=== PATIENT | female | born 1990 | race Caucasian/White ===

== ENCOUNTER 2023-01-27 13:55 | Outpatient (OUT) | payer OTHER, SELFPAY ==
[2023-01-27 14:22] LABS: Basophils Percent Auto 0.3 % (0.2-2.0); Eosinophils Absolute Auto 0.1 10^3/uL (0.0-0.7); Eosinophils Percent Auto 0.9 % (0.9-7.0); Hematocrit 33.1 % (36.0-48.0); Hemoglobin 10.7 g/dL (12.0-16.0); Immature Granulocytes Pct Auto 1.8 % (0.0-0.5); Lymphocytes Absolute Auto 2.5 10^3/uL (1.2-3.8); Lymphocytes Percent Auto 22.3 % (20.5-60.0); Mean Corpuscular HGB Conc 32.3 g/dL (29.9-35.2); Mean Corpuscular Volume 80.3 fL (81.0-99.0); Mean Platelet Volume 12.1 fL (9.5-13.5); Monocytes Absolute Auto 0.7 10^3/uL (0.3-0.8); Monocytes Percent Auto 5.9 % (1.7-12.0); Neutrophils Absolute Auto 7.7 10^3/uL (1.4-6.5); Neutrophils Percent Auto 68.8 % (43.0-75.0); Platelet Count 182 10^3/uL (150-450); Red Blood Count 4.12 10^6/uL (4.20-5.40); Red Cell Distribution Width 15.9 % (11.0-15.0); White Blood Count 11.2 10^3/uL (4.0-11.0)
== END 2023-01-27 13:56 | disposition home or self-care (01) ==
LOC: LAB 13:59
PROVIDERS: PCP Obstetrics & Gynecology; Visit Provider Obstetrics & Gynecology
DX: D50.8 Other iron deficiency anemias (principal)
CPT/HCPCS: 36415; 85025

== ENCOUNTER 2023-01-31 13:57 | Outpatient (OUT) | payer OTHER, SELFPAY ==
[2023-01-31 14:11] VITALS: BP 143/62; PULSE 93
--- NOTE | 2023-01-31 14:23 | US_ITS ---
[address] [address] Patient Name: SHIN ANTONIO MRN: [id number] date: 1990 Sex: F Assigned Patient Location: [facility] Current Patient Location: Accession/Order Number: [id number] Exam Date: 01/31/2023 14:25 Report Date: 01/31/2023 18:28 At the request of: RONNELL LEGGETT Procedure: US OB BPP w non-stress EXAMINATION: US OB BPP w non-stress HISTORY: Other iron deficiency anemia D50.8 COMPARISON: No relevant comparison available. TECHNIQUE: Ultrasound biophysical profile was performed in the radiology department. FINDINGS: BREATHING MOVEMENTS: 2.0 GROSS BODY MOVEMENTS: 2.0 TONE: 2.0 QUALITATIVE AMNIOTIC FLUID VOLUME: 2.0 PRESENTATION: CEPHALIC HEART RATE: 151.7 bpm H.B./min AMNIOTIC FLUID VOLUME: 13.0 cm cm GESTATIONAL AGE: 32 weeks 3 days CONCLUSION: Total biophysical profile score: 8.0 Electronically authenticated by: JR RITCHIE Date: 01/31/2023 18:28
== END 2023-01-31 14:55 | disposition home or self-care (01) ==
LOC: US 13:58 → FBC 13:59
PROVIDERS: Visit Provider Midwife
DX: O34.219 Maternal care for unspecified type scar from previous cesarean delivery (principal); O09.293 Supervision of pregnancy with other poor reproductive or obstetric history, third trimester; D50.8 Other iron deficiency anemias
CPT/HCPCS: 76818

== ENCOUNTER 2023-02-03 10:59 | Outpatient (OUT) | payer OTHER, SELFPAY ==
[2023-02-03 11:11] VITALS: BP 137/70; PULSE 87
== END 2023-02-03 11:43 | disposition home or self-care (01) ==
LOC: FBCO 10:59 → FBC 11:10
PROVIDERS: Visit Provider Obstetrics & Gynecology
DX: O09.293 Supervision of pregnancy with other poor reproductive or obstetric history, third trimester (principal); O34.219 Maternal care for unspecified type scar from previous cesarean delivery; D50.8 Other iron deficiency anemias
CPT/HCPCS: 59025

== ENCOUNTER 2023-02-07 16:58 | Outpatient (OUT) | payer OTHER, SELFPAY ==
--- NOTE | 2023-02-07 17:05 | US_ITS ---
[address] [address] Patient Name: SHIN ANTONIO MRN: [id number] date: 1990 Sex: F Assigned Patient Location: [facility] Current Patient Location: Accession/Order Number: [id number] Exam Date: 02/07/2023 17:10 Report Date: 02/08/2023 04:10 At the request of: RONNELL LEGGETT Procedure: US OB BPP w non-stress EXAMINATION: US OB BPP w non-stress HISTORY: H/O MACROSOMIA IN PRIOR O09.293 COMPARISON: Ultrasound biophysical 01/31/2023 TECHNIQUE: Ultrasound biophysical profile was performed in the radiology department. BREATHING MOVEMENTS: 2.0 GROSS BODY MOVEMENTS: 2.0 TONE: 2.0 QUALITATIVE AMNIOTIC FLUID VOLUME: 2.0 PRESENTATION: CEPHALIC HEART RATE: 156.1 bpm bpm. AMNIOTIC FLUID VOLUME: 11.7 cm GESTATIONAL AGE: 33 weeks 3 days CONCLUSION: Total biophysical profile score 8.0. Electronically authenticated by: LINO ARROYO Date: 02/08/2023 04:10
[2023-02-07 18:35] VITALS: BP 130/72; PULSE 87
== END 2023-02-07 18:40 | disposition home or self-care (01) ==
LOC: US 16:59 → FBC 17:02
PROVIDERS: Visit Provider Midwife
DX: O09.293 Supervision of pregnancy with other poor reproductive or obstetric history, third trimester (principal); O34.219 Maternal care for unspecified type scar from previous cesarean delivery; O99.013 Anemia complicating pregnancy, third trimester; D50.8 Other iron deficiency anemias; Z3A.00 Weeks of gestation of pregnancy not specified
CPT/HCPCS: 76818

== ENCOUNTER 2023-02-09 20:08 | Outpatient (REF) | payer OTHER, SELFPAY | END 2023-02-09 20:09 | disposition home or self-care (01) | LOC: LAB 20:08 | PROVIDERS: Visit Provider Obstetrics & Gynecology | DX: Z34.93 Encounter for supervision of normal pregnancy, unspecified, third trimester (principal) | CPT/HCPCS: 87081 ==

== ENCOUNTER 2023-02-10 10:55 | Outpatient (OUT) | payer OTHER, SELFPAY | END 2023-02-10 11:59 | disposition home or self-care (01) | LOC: FBCO 10:59 → FBC 11:04 | PROVIDERS: Visit Provider Obstetrics & Gynecology | DX: O09.293 Supervision of pregnancy with other poor reproductive or obstetric history, third trimester (principal); O34.219 Maternal care for unspecified type scar from previous cesarean delivery; D50.8 Other iron deficiency anemias | CPT/HCPCS: 59025 ==

== ENCOUNTER 2023-02-14 17:09 | Outpatient (OUT) | payer OTHER, SELFPAY ==
--- NOTE | 2023-02-14 17:14 | US_ITS ---
[address] [address] Patient Name: SHIN ANTONIO MRN: [id number] date: 1990 Sex: F Assigned Patient Location: [facility] Current Patient Location: Accession/Order Number: [id number] Exam Date: 02/14/2023 17:25 Report Date: 02/15/2023 15:04 At the request of: RONNELL LEGGETT Procedure: US OB BPP w non-stress EXAMINATION: US OB BPP w non-stress HISTORY: H/O MACROSOMIA O09.293 COMPARISON: Ultrasound OB biophysical 02/07/2023 TECHNIQUE: Ultrasound biophysical profile was performed in the radiology department. BREATHING MOVEMENTS: 2.0 GROSS BODY MOVEMENTS: 2.0 TONE: 2.0 QUALITATIVE AMNIOTIC FLUID VOLUME: 2.0 PRESENTATION: CEPHALIC HEART RATE: 149.2 bpm bpm. AMNIOTIC FLUID VOLUME: 11.1 cm GESTATIONAL AGE: 34 weeks 3 days CONCLUSION: Total biophysical profile score 8.0. Electronically authenticated by: LINO ARROYO Date: 02/15/2023 15:04
[2023-02-14 18:08] VITALS: BP 128/66; PULSE 88
== END 2023-02-14 18:45 | disposition home or self-care (01) ==
LOC: US 17:12 → FBC 17:13
PROVIDERS: Visit Provider Midwife
DX: Z34.93 Encounter for supervision of normal pregnancy, unspecified, third trimester (principal); O34.219 Maternal care for unspecified type scar from previous cesarean delivery; D50.8 Other iron deficiency anemias; Z3A.34 34 weeks gestation of pregnancy
CPT/HCPCS: 59025; 76818

== ENCOUNTER 2023-02-15 00:29 | Observation (INO) | payer OTHER, SELFPAY ==
[2023-02-15 00:45] VITALS: BP 149/70; PULSE 89
[2023-02-15 00:51] LABS: Bilirubin Urine NEGATIVE (NEGATIVE); Blood Urine TRACE-I (NEGATIVE); Clarity Urine CLEAR (CLEAR); Color Urine YELLOW (YELLOW); Glucose Urine UA NEGATIVE (NEGATIVE); Ketones Urine NEGATIVE (NEGATIVE); Leukocyte Esterase Urine NEGATIVE (NEGATIVE); Nitrite Urine NEGATIVE (NEGATIVE); Protein Urine NEGATIVE (NEG/TRACE); Specific Gravity Urine 1.025 (1.005-1.025)
[2023-02-15 00:55] VITALS: BP 145/81; PULSE 87
[2023-02-15 00:55] LABS: Urine Microscopic Indicated YES
[2023-02-15 00:58] LABS: Bacteria Urine LARGE #/HPF (NONE SEEN); Cast Seen? NONE SEEN #/LPF (NONE SEEN); Crystals Seen? None Seen #/HPF (None Seen); Mucus Urine NONE SEEN (NONE SEEN); Squamous Epithelial Cell Urine MODERATE #/LPF (NONE/RARE); Urine Culture Indicated YES
== END 2023-02-15 02:30 | disposition home or self-care (01) ==
LOC: FBC 00:30
PROVIDERS: Admitting Provider Obstetrics & Gynecology; Visit Provider Obstetrics & Gynecology
DX: O26.893 Other specified pregnancy related conditions, third trimester (principal); R10.9 Unspecified abdominal pain; Z3A.34 34 weeks gestation of pregnancy; O23.593 Infection of other part of genital tract in pregnancy, third trimester; O13.3 Gestational [pregnancy-induced] hypertension without significant proteinuria, third trimester
CPT/HCPCS: 59025; 81001; 81003; 87086; G0378; G0379

== ENCOUNTER 2023-02-16 07:36 | Outpatient (OUT) | payer OTHER, SELFPAY ==
[2023-02-16 10:50] VITALS: BP 128/68; PULSE 91; RESP 20; TEMP 36.3; O2SAT 97
--- NOTE | 2023-02-16 10:50 | PC.NURSE ---
Pt. to [facility] amb. for Celestone injection. Denies questions regarding medication. VSS.
--- NOTE | 2023-02-16 11:05 | PC.NURSE ---
1103: Medicated with Celestone 12mg IM to right deltoid. No bleeding to site. Bandaid placed prophylactically. Instructed need to remain in [facility] for brief observation. Relays understanding.
--- NOTE | 2023-02-16 11:21 | PC.NURSE ---
Pt. without s&s of adverse reaction. No bleeding at injection site. D/c'd amb. to home.
== END 2023-02-16 07:37 | disposition home or self-care (01) ==
LOC: INF 07:36
PROVIDERS: Visit Provider Obstetrics & Gynecology
DX: O35.8XX0 Maternal care for other (suspected) fetal abnormality and damage, not applicable or unspecified (principal); Z3A.34 34 weeks gestation of pregnancy
CPT/HCPCS: 96372; J0702

== ENCOUNTER 2023-02-16 22:25 | Outpatient (OUT) | payer OTHER, SELFPAY ==
[2023-02-16 22:37] VITALS: BP 150/77; PULSE 83
[2023-02-16 22:57] LABS: Bilirubin Urine NEGATIVE (NEGATIVE); Blood Urine TRACE-I (NEGATIVE); Clarity Urine CLEAR (CLEAR); Color Urine LT. YELLOW (YELLOW); Glucose Urine UA 500 mg/dL (NEGATIVE); Ketones Urine 15 mg/dL (NEGATIVE); Leukocyte Esterase Urine NEGATIVE (NEGATIVE); Nitrite Urine NEGATIVE (NEGATIVE); Protein Urine NEGATIVE (NEG/TRACE); Specific Gravity Urine >=1.030 (1.005-1.025); Urobilinogen Urine 0.2 EU/dL (0.2-1.0)
[2023-02-16 23:09] LABS: Urine Microscopic Indicated YES
[2023-02-16 23:10] LABS: Bacteria Urine TRACE #/HPF (NONE SEEN); Cast Seen? NONE SEEN #/LPF (NONE SEEN); Crystals Seen? None Seen #/HPF (None Seen); Mucus Urine NONE SEEN (NONE SEEN); RBC Urine 0-2 #/HPF (0-2); Squamous Epithelial Cell Urine FEW #/LPF (NONE/RARE); Urine Culture Indicated NO; WBC Urine 0-2 #/HPF (NONE SEEN)
== END 2023-02-16 23:40 | disposition home or self-care (01) ==
LOC: FBCO 22:27 → FBC 22:29
PROVIDERS: Midwife; Visit Provider Obstetrics & Gynecology
DX: O09.293 Supervision of pregnancy with other poor reproductive or obstetric history, third trimester (principal); O34.219 Maternal care for unspecified type scar from previous cesarean delivery; O99.013 Anemia complicating pregnancy, third trimester; D50.8 Other iron deficiency anemias; Z3A.00 Weeks of gestation of pregnancy not specified
CPT/HCPCS: 59025; 81001; 81003; 96372; J0702

== ENCOUNTER 2023-02-17 14:00 | Observation (INO) | payer OTHER, SELFPAY ==
[2023-02-17 11:01] VITALS: BP 148/70; PULSE 90; RESP 18
--- NOTE | 2023-02-17 12:11 | US_ITS ---
[address] [address] Patient Name: SHIN ANTONIO MRN: [id number] date: 1990 Sex: F Assigned Patient Location: [facility] Current Patient Location: [facility] Accession/Order Number: [id number] Exam Date: 02/17/2023 12:15 Report Date: 02/17/2023 14:23 At the request of: ANAYELI JOHANSEN Procedure: US OB BPP w non-stress PROCEDURE: US OB BPP w non-stress, 02/17/2023 12:15 PM EDT CLINICAL INDICATIONS: Decreased movement, encounter for third trimester , biophysical profile assessment. Expected gestational age: 34 weeks 6 days. Expected EZEKIEL: 03/25/2023. COMPARISON: 02/14/2023, pelvic sonogram 10/05/2022. TECHNIQUE: Limited third trimester obstetric sonogram, howard scale, color assessment, biophysical profile evaluation. FINDINGS: Single living intrauterine , cephalic presentation noted. body, cardiac activity seen, heart rate 144 bpm. Amniotic fluid index 12.1 cm, maximum vertical pocket 3.5 cm. 5-95th percentile. BIOPHYSICAL PROFILE ASSESSMENT: movement: 0/2 tone: 2/2 breathin/2 fluid: 2/2 Total biophysical profile score: 6/8 Anterior placenta, no previa. There is coarse calcification along the ventral aspect of the uterus with acoustic shadowing measuring up to 3.3 x 2.0 x 3.5 cm. This likely corresponds with a 2.2 cm calcified degenerated subserosal uterine fibroid seen on sonogram of 10/07/2021. US/US OB BPP w non-stress IMPRESSION: 1. Single living intrauterine , cephalic presentation. 2. Total biophysical profile score of 6/8. The fetus received a score of 0/2 for movement parameter. Fetus received scores of 2/2 for breathing, tone and fluid parameters. 3. Anterior placenta, no previa. 4. Normal amniotic fluid index, 12.1 cm, maximal vertical pocket 3.5 cm. 5. 3.5 cm calcified degenerated subserosal ventral maternal uterine fibroid, previously 2.2 cm on 10/07/2021. RESULTS PLACED IN THE STAT CALL FOLDER AT THE TIME OF THIS DICTATION. Electronically authenticated by: JUNE AC Date: 02/17/2023 14:23
[2023-02-17 13:13] VITALS: BP 148/70; PULSE 93
--- NOTE | 2023-02-17 14:13 | PC.NURSE ---
Pt observation to continue in room 251. Settles into room, call light in reach, water and declines food at this time. Discusses plan of care with FHT's Q 1 hour while awake with 20 min strip every 4 hours. Pt verbalizes understanding. Pt settles self and states will try to rest. FHT 140-150, accel to 162 noted with audible movement. Pt denies feeling movement. Is aware of anterior placenta masking movement. States feels better hearing FHT's.
[2023-02-17 20:07] VITALS: BP 111/56; PULSE 90
[2023-02-17 20:10] VITALS: BP 111/56; PULSE 90; RESP 16; TEMP 36.7
--- NOTE | 2023-02-17 20:15 | PC.NURSE ---
Assessment is complete. Lungs are clear. No edema is noted. Pt denies any nausea, blurred/spotty vision or dizziness. No bleeding or leaking of fluid. Pt reports feeling the baby move alot more now. FHR tracing is reactive. Pt denies any pain.
[2023-02-17 23:56] VITALS: BP 148/67; PULSE 90; RESP 18; TEMP 36.8
[2023-02-18 04:49] VITALS: BP 112/59; PULSE 83; RESP 18; TEMP 37
--- NOTE | 2023-02-18 08:00 | US_ITS ---
[address] [address] Patient Name: SHIN ANTONIO MRN: [id number] date: 1990 Sex: F Assigned Patient Location: [facility] Current Patient Location: Accession/Order Number: [id number] Exam Date: 02/18/2023 08:28 Report Date: 02/18/2023 11:06 At the request of: ANAYELI JOHANSEN Procedure: US OB BPP w non-stress EXAMINATION: US OB BPP w non-stress HISTORY: Decreased movement COMPARISON: Ultrasound OB biophysical 02/17/2023 TECHNIQUE: Ultrasound biophysical profile was performed in the radiology department. BREATHING MOVEMENTS: 2.0 GROSS BODY MOVEMENTS: 2.0 TONE: 2.0 QUALITATIVE AMNIOTIC FLUID VOLUME: 2.0 PRESENTATION: CEPHALIC HEART RATE: 139.9 bpm bpm. AMNIOTIC FLUID VOLUME: 13.9 cm GESTATIONAL AGE: 35 weeks 0 days CONCLUSION: Total biophysical profile score 8.0. Electronically authenticated by: LINO ARROYO Date: 02/18/2023 11:06
[2023-02-18 08:18] VITALS: BP 117/64; PULSE 85
[2023-02-18 09:12] VITALS: RESP 18; TEMP 36.9
== END 2023-02-18 09:43 | disposition home or self-care (01) ==
LOC: FBCO 15:04 → FBC 15:04
PROVIDERS: Admitting Provider Obstetrics & Gynecology; Visit Provider Obstetrics & Gynecology
DX: O36.8130 Decreased fetal movements, third trimester, not applicable or unspecified (principal); O09.293 Supervision of pregnancy with other poor reproductive or obstetric history, third trimester; O34.219 Maternal care for unspecified type scar from previous cesarean delivery; O99.013 Anemia complicating pregnancy, third trimester; D50.8 Other iron deficiency anemias; Z3A.34 34 weeks gestation of pregnancy
CPT/HCPCS: 76818; 96372; G0378; G0379; J0702

== ENCOUNTER 2023-02-20 11:50 | Outpatient (OUT) | payer OTHER, SELFPAY ==
[2023-02-20 12:32] VITALS: BP 135/63; PULSE 83
== END 2023-02-20 12:55 | disposition home or self-care (01) ==
LOC: FBCO 11:57 → FBC 11:57
PROVIDERS: Visit Provider Obstetrics & Gynecology
DX: Z34.93 Encounter for supervision of normal pregnancy, unspecified, third trimester (principal); O09.293 Supervision of pregnancy with other poor reproductive or obstetric history, third trimester; O34.219 Maternal care for unspecified type scar from previous cesarean delivery; R51.9 Headache, unspecified
CPT/HCPCS: 59025

== ENCOUNTER 2023-02-21 18:35 | Inpatient (IN) | payer OTHER, SELFPAY ==
[2023-02-21] VITALS (44 sets, daily range): BP systolic 116–182; BP diastolic 55–77; PULSE 75–106; RESP 13–29; TEMP 36.7–37.2; O2SAT 96–97
--- NOTE | 2023-02-21 17:14 | US_ITS ---
[address] [address] Patient Name: SHIN ANTONIO MRN: [id number] date: 1990 Sex: F Assigned Patient Location: [facility] Current Patient Location: [facility] Accession/Order Number: [id number] Exam Date: 02/21/2023 17:18 Report Date: 02/21/2023 22:09 At the request of: MARV PARRA Procedure: US OB BPP w non-stress EXAMINATION: US OB BPP w non-stress HISTORY: H/O MACROSOMIA PRIOR O09.293 COMPARISON: Ultrasound biophysical 02/18/2023 TECHNIQUE: Ultrasound biophysical profile was performed in the radiology department. BREATHING MOVEMENTS: 2.0 GROSS BODY MOVEMENTS: 2.0 TONE: 2.0 QUALITATIVE AMNIOTIC FLUID VOLUME: 2.0 PRESENTATION: CEPHALIC HEART RATE: 150.0 bpm bpm. AMNIOTIC FLUID VOLUME: 10.5 cm GESTATIONAL AGE: 35 weeks 3 days CONCLUSION: Total biophysical profile score 8.0. Electronically authenticated by: LINO ARROYO Date: 02/21/2023 22:09
[2023-02-21] MEDS: 0.9 % SODIUM CHLORIDE 1,000 ML 1000 ML IV (18:45)
[2023-02-21] MEDS: TERBUTALINE SULFATE 1 MG/ML VIAL 0.25 MG SUBQ ×2 (18:55→19:15)
[2023-02-21 19:51] LABS: Basophils Percent Auto 0.3 % (0.2-2.0); Eosinophils Absolute Auto 0.1 10^3/uL (0.0-0.7); Eosinophils Percent Auto 0.5 % (0.9-7.0); Hematocrit 35.5 % (36.0-48.0); Hemoglobin 10.9 g/dL (12.0-16.0); Immature Granulocytes Abs Auto 0.25 10^3/uL (0.00-0.03); Immature Granulocytes Pct Auto 1.9 % (0.0-0.5); Lymphocytes Absolute Auto 2.9 10^3/uL (1.2-3.8); Mean Corpuscular HGB Conc 30.7 g/dL (29.9-35.2); Mean Corpuscular Volume 81.4 fL (81.0-99.0); Mean Platelet Volume 11.7 fL (9.5-13.5); Monocytes Absolute Auto 0.8 10^3/uL (0.3-0.8); Monocytes Percent Auto 6.3 % (1.7-12.0); Neutrophils Absolute Auto 8.9 10^3/uL (1.4-6.5); Platelet Count 175 10^3/uL (150-450); Red Blood Count 4.36 10^6/uL (4.20-5.40); Red Cell Distribution Width 16.3 % (11.0-15.0); White Blood Count 12.9 10^3/uL (4.0-11.0)
[2023-02-21] MEDS: 0.9 % SODIUM CHLORIDE 1,000 ML 150 ML IV (19:58)
--- NOTE | 2023-02-21 20:06 | P.OBHP_ITS ---
OB - H&P: HPI History of Present Illness Chief complaint: Z34.98, O09.293 - US BPP, NST : 8 Para: 3 Date of last menstrual period: EZEKIEL 03/25/23 Gestational age based on last menstrual period: 34.4 Narrative: HISTORY OF ABRUPTION FOLLOWED BY UTERINE RUPTURE AND DEMISE LAST . PLANNED THIS WEEK. CAME IN GURWINDER NOT RESPONSIVE TO IVG HYDRATION AND TERBUTALINE. GOING FOR REPEAT . DISCUSSED WITH DR. JOHANSEN WHO AGREES. History of Present Dating criteria: LMP confirmed by 2nd trimester US care: good care Ultrasounds: normal mid trimester US complications: induced hypertension complications comment: PATIENT STATES WHEN ANXIOUS SHE SOMETIMES HAS SVT Medical complications OB: other (INCREASED BMI) Labs Blood type: A (+) positive Rubella: immune RPR/VDLR: nonreactive GBS status: negative HBsAG: negative Review of Systems ROS Status of ROS 10 or more systems reviewed and unremarkable except as noted in history and below Gastrointestinal Reports: other (REGULAR CONTRACTIONS, MILD) PFSH PFSH Medical History (Updated 02/21/23 @ 20:21 by Shameka Hernandez MD) Surgical History (Updated 02/21/23 @ 19:51 by Geena Brantley) Meds Home Medications and Allergies Home Medications Medication Instructions Recorded Confirmed Type labetalol 100 mg tablet 100 mg PO Q12H 02/21/23 02/21/23 History magnesium oxide 400 mg (241.3 mg mg PO DAILY 02/21/23 History magnesium) tablet polysaccharide iron complex 180 mg mg 02/21/23 History iron capsule (Pro Fe) prednisone 1 mg tablet 3.5 mg PO DAILY 02/21/23 02/21/23 History prednisone 5 mg tablet mg 02/21/23 History Allergies Allergy/AdvReac Type Severity Reaction Status Date / Time clear taape AdvReac Mild Uncoded 02/17/23 11:48 Exam Constitutional Vital Signs, click to edit/add: Last Vital Signs Pulse 95 H 02/21/23 20:02 BP 182/70 H 02/21/23 20:02 Documenting provider has reviewed patient's vital signs: yes Common normals: no apparent distress and oriented x3 (INCREASED BMI) General appearance: cooperative, comfortable, well kempt and well developed Orientation/consciousness: Yes awake, Yes oriented to person, Yes oriented to place and Yes oriented to time HENMT Common normals: normocephalic and head/scalp atraumatic Eye Common normals: PERRL Pupil: accommodation reflex normal Neck & C-Spine Common normals: full ROM Respiratory Common normals: normal respiratory effort Cardio Common normals: regular rate and regular rhythm (PATIENT STATES WHEN ANXIOUS HAS BEEN KNOWN TO HAVE SVT) GI Common normals: Normal to inspection, nondistended, normoactive bowel sounds present, soft to palpation and non-tender (GRAVID, MILD TO MODERATE PAINFUL CONTRACTIONS Q 2 MINUTES) Common normals: no CVA tenderness and external appearance normal Extremity Common normals: normal to inspection and full ROM Neuro Common normals: CN's II-XII intact bilaterally, moves all extremities and no focal motor deficits Motor exam: strength 5/5 throughout Results Labs Labs: Short CBC 02/21/23 Range/Units 19:45 WBC 12.9 H (4.0-11.0) 10^3/uL Hgb 10.9 L (12.0-16.0) g/dL Hct 35.5 L (36.0-48.0) % Plt Count 175 (150-450) 10^3/uL OB - A/P Assessment and Plan (1) delivery (maternal condition): Assessment and Plan: HISTORY OF ABRUPTION FOLLOWED BY UTERINE RUPTURE AND DEMISE. FOUND TO BE HETEROZYGOUS FOR MTHFR 677 AND 1928 MUTATION. PLACED ON PREDNISONE FOR THIS. (2) contractions: Assessment and Plan: UNABLE TO STOP WITH IVF HYDRATION AND TWO DOSES OF TERBUTALINE. (3) PIH ( induced hypertension): Assessment and Plan: ON LABETALOL Plan HAVE DISCUSSED WITH DR. JOHANSEN. WILL PROCEED TO CATEGORY B . REPEAT C- SECTION WAS PLANNED FOR THIS COMING MONDAY. THE RISK OF UTERINE RUPTURE IS TOO GREAT NOT TO PROCEED TO NOW. DISCUSSED WITH PATIENT AND HER WHO UNDERSTAND REASON FOR NOW AND ARE IN AGREEMENT. THEY KNOW THAT I HAVE SPOKEN TO DR. JOHANSEN. WILL RECEIVE VTE PROPHYLAXIS POST OP. LABS REVIEWED. GBS NEGATIVE. OB RECORD REVIEWED. TEAM HERE. MANAGER OF HEALTH NOTIFIED OF PENDING AT 38.4 WEEKS. ANTICIPATE EXTRAFACIAL CS DR. JOHANSEN INFORMED THERE ARE DENSE ADHESIONS. HAS HAD 4 PRIOR C-SECTIONS. CONSENT FORMS ARE SIGNED.
[2023-02-21 20:29] LABS: Amphetamine Screen Urine NEGATIVE (NEGATIVE); Barbiturates Screen Urine NEGATIVE (NEGATIVE); Benzodiazepines Screen Urine NEGATIVE (NEGATIVE); Buprenorphine Screen Urine NEGATIVE (NEGATIVE); Cannabinoid Screen Urine NEGATIVE (NEGATIVE); Cocaine Screen Urine NEGATIVE (NEGATIVE); Methadone Screen Urine NEGATIVE (NEGATIVE); Methamphetamines Screen Urine NEGATIVE (NEGATIVE); Opiate Screen Urine NEGATIVE (NEGATIVE); Oxycodone Screen Urine NEGATIVE (NEGATIVE); Phencyclidine Screen Urine NEGATIVE (NEGATIVE); Tricyclic Antidepressant Urine NEGATIVE (NEGATIVE)
[2023-02-21] MEDS: FAMOTIDINE/PF 20 MG/2 ML VIAL IV (20:45)
[2023-02-21] MEDS: CEFAZOLIN SODIUM/DEXTROSE,ISO 2 GM/50 ML PIGGYBACK IV (20:47)
--- NOTE | 2023-02-21 22:02 | P.OBPRC_ITS ---
Procedure Pre-op/Post-op diagnoses: Pre-Op/Post-Op Diagnoses Operation Date: 02/21/23 18:25 <No data on this case meets the specified criteria> Procedure: Procedures Operation Date: 02/21/23 18:25 Actual Procedure Side Surgeon p WITH DELIVERY OF VIABLE BABY GIRL Not Applicable Shameka Hernandez MD Cycle Consultant: Maribel Shelton Estimated blood loss (mL): 500 Disposition: other (maternity) Anesthesia type: Spinal Complications: none Narrative: CATEGORY B CS. HISTORY OF ABRUPTION WITH UTERINE RUPTURE AND DEMISE WITH LAST . CURRENTLY GURWINDER AT 35.4 WEEKS. WAS SCHEDULED FOR SURGERY THIS MONDAY WITH DR. JOHANSEN. SEE DICTATION. Infant heart rate - 5 minute: 100 bpm or Greater (see dimension mill worker's assessment note at )
[2023-02-21] MEDS: LACTATED RINGER'S SOLUTION 1,000 ML 125 ML IV (22:21)
[2023-02-21] MEDS: ONDANSETRON PF 4 MG/2 ML VIAL IV (23:17)
[2023-02-21] MEDS: DIPHENHYDRAMINE HCL 50 MG/ML (1ML) VIAL 25 MG IV (23:18)
[2023-02-22] VITALS (17 sets, daily range): BP systolic 123–166; BP diastolic 69–81; PULSE 73–79; RESP 16–22; TEMP 35.6–36.7; O2SAT 96–100
[2023-02-22] MEDS: KETOROLAC TROMETHAMINE 30 MG/ML VIAL IVP ×4 (01:06→20:37)
[2023-02-22] MEDS: CEFAZOLIN SODIUM/DEXTROSE 2 GM/50 ML PIGGYBACK IV (03:23)
[2023-02-22 06:01] LABS: Basophils Percent Auto 0.2 % (0.2-2.0); Eosinophils Absolute Auto 0.1 10^3/uL (0.0-0.7); Eosinophils Percent Auto 0.3 % (0.9-7.0); Hematocrit 29.7 % (36.0-48.0); Hemoglobin 9.2 g/dL (12.0-16.0); Immature Granulocytes Pct Auto 1.4 % (0.0-0.5); Lymphocytes Absolute Auto 2.7 10^3/uL (1.2-3.8); Lymphocytes Percent Auto 18.2 % (20.5-60.0); Mean Corpuscular Hemoglobin 25.1 pg (26.7-34.0); Mean Corpuscular Volume 80.9 fL (81.0-99.0); Mean Platelet Volume 11.6 fL (9.5-13.5); Monocytes Absolute Auto 0.9 10^3/uL (0.3-0.8); Monocytes Percent Auto 6.1 % (1.7-12.0); Neutrophils Absolute Auto 10.9 10^3/uL (1.4-6.5); Neutrophils Percent Auto 73.8 % (43.0-75.0); Platelet Count 152 10^3/uL (150-450); Red Blood Count 3.67 10^6/uL (4.20-5.40); Red Cell Distribution Width 16.1 % (11.0-15.0); White Blood Count 14.7 10^3/uL (4.0-11.0)
--- NOTE | 2023-02-22 07:18 | W.PC.ACHO ---
Registration Status: ADM IN Primary Language: Paraguayan Preferred Language: Paraguayan Active Medications Report given to Rosalee Generic Name Dose Route Start Last Admin Trade Name Freq PRN Reason Stop Dose Admin Al Hydroxide/Mg Hydroxide 2,400 mg 02/21/23 22:00 Magnesium Hydroxide 2,400 Mg/10 Ml Oral.Susp PO Q6H PRN Dyspepsia Carboprost Tromethamine 250 mcg 02/21/23 20:03 Carboprost Tromethamine 250 Mcg/Ml 1 Ml Vial IM Q15M PRN Bleeding Enoxaparin Sodium 40 mg 02/22/23 10:00 Enoxaparin Sodium 40 Mg/0.4 Ml Syringe SUBQ Q24H KATHLEEN Sodium Chloride 1,000 mls @ 150 mls/hr 02/21/23 19:45 02/21/23 19:58 Sodium Chloride 0.9% 1,000 Ml IV 150 mls/hr .Q6H40M KATHLEEN Administration Sodium Chloride 1,000 mls @ 125 mls/hr 02/21/23 20:15 02/22/23 05:05 Sodium Chloride 0.9% 1,000 Ml IV Not Given .Q8H KATHLEEN Cefazolin Sodium/Dextrose 2 gm in 50 mls @ 100 mls/hr 02/21/23 20:15 02/21/23 20:47 Ancef IV 100 mls/hr Q6H KATHLEEN 100 mls/hr Administration Clindamycin Phosphate/Dextrose 900 mg in 50 mls @ 100 mls/hr 02/21/23 20:15 02/22/23 01:57 Cleocin Phosphate/D5w 900 Mg/50 Ml Piggyback IV Not Given Q8H KATHLEEN Oxytocin 10 unit/ Sodium 501 mls @ 6.012 mls/hr 02/21/23 20:15 02/22/23 05:08 Chloride IV Not Given Q24H KATHLEEN 2 MILLIUNIT/MIN Lactated Ringer's 1,000 mls @ 125 mls/hr 02/21/23 22:00 02/21/23 22:21 Lactated Ringers IV 125 mls/hr .Q8H KATHLEEN Administration Lactated Ringer's 1,000 mls @ 50 mls/hr 02/21/23 22:30 02/22/23 05:06 Lactated Ringers IV Not Given .Q20H KATHLEEN Oxytocin 20 unit/ Sodium 1,002 mls @ 125 mls/hr 02/22/23 02:00 Chloride IV 02/22/23 09:59 Q8H KATHLEEN Protocol Ibuprofen 800 mg 02/21/23 21:54 Ibuprofen 400 Mg Tablet PO Q8H PRN Pain Ketorolac Tromethamine 30 mg 02/21/23 21:54 02/22/23 06:37 Ketorolac Tromethamine 30 Mg/Ml Vial IVP 02/23/23 21:55 30 mg Q6H PRN Administration Pain Lidocaine 5 ml 02/21/23 20:03 Lidocaine Viscous 2% 15 Ml Topical Solution TOPICAL DIRECTED PRN Pain Lidocaine 1 ml 02/21/23 20:03 Lidocaine Hcl 1% 200 Mg/20 Ml Mdv INJ DIRECTED PRN Pain Methylergonovine Maleate 0.2 mg 02/21/23 20:03 Methylergonovine Maleate 0.2 Mg/Ml Ampule IM ONCE PRN Uterine Contractility/Contract Methylergonovine Maleate 0.2 mg 02/21/23 20:03 Methylergonovine Maleate 0.2 Mg Tablet PO Q4H PRN Uterine Contractility/Contract Misoprostol 600 mcg 02/21/23 20:03 Misoprostol 100 Mcg Tablet PO ONCE PRN Uterine Bleeding Misoprostol 800 mcg 02/21/23 20:03 Misoprostol 100 Mcg Tablet SL ONCE PRN Uterine Bleeding Misoprostol 1,000 mcg 02/21/23 20:03 Misoprostol 100 Mcg Tablet NE ONCE PRN Uterine Bleeding Nalbuphine HCl 10 mg 02/21/23 20:03 Nalbuphine Hcl 10 Mg/Ml Ampule IV Q3H PRN Pain Ondansetron HCl 4 mg 02/21/23 20:03 Ondansetron 4 Mg Rapdis Tablet SL Q6H PRN Nausea And Vomiting Ondansetron HCl 4 mg 02/21/23 22:00 02/21/23 23:17 Ondansetron Pf 4 Mg/2 Ml Vial IV 4 mg Q6H PRN Administration Nausea And Vomiting Oxycodone/Acetaminophen 2 each 02/21/23 21:54 Oxycodone Hcl/Acetaminophen 5-325 Mg Tablet PO Q4H PRN Pain Oxytocin 10 unit 02/21/23 20:03 Oxytocin 100 Unit/10 Ml Vial IM ONCE PRN Uterine Bleeding Senna 17.2 mg 02/21/23 20:00 Sennosides 8.6 Mg Tablet PO QHS PRN Constipation Simethicone 80 mg 02/21/23 22:00 Simethicone 80 Mg Tab.Chew PO QID PRN Abdominal Distention Diet Category Date Time Status Regular Consistency Diet Diet 02/22/23 Breakfast Active IV Insertion/Site Date of IV Line Insertion [ 02/21/23 Short PIV (<1.75 in) 20g left Antecubital] IV Insertion Time [Short PIV ( 18:45 <1.75 in) 20g left Antecubital ] IV Catheter Type [Left Peripheral IV Antecubital] IV Catheter Type [Left Peripheral IV Antecubital] IV Catheter Gauge [Left 20 Antecubital] IV Catheter Gauge [Left 20 Antecubital] Neurology Patient orientation (short person,place,time,situation list) [place] coma scale total score 15 [place] coma scale total score 15 Respiratory Lung sounds [Throughout] clear Lung sounds [Throughout] clear Lung sounds [Throughout] clear Lung sounds [Throughout] clear Lung sounds [Throughout] clear Lung sounds [Throughout] clear Lung sounds [Throughout] clear Lung sounds [Throughout] clear Pulse Oximetry 96 Pulse Oximetry 97 Pulse Oximetry 97 Pulse Oximetry 97 Oxygen Delivery Method Room Air Oxygen Delivery Method Room Air Oxygen Delivery Method Room Air Oxygen Delivery Method Room Air Oxygen Delivery Method Room Air Oxygen Delivery Method Room Air Oxygen Delivery Method Room Air Oxygen Delivery Method Room Air Oxygen Delivery Method Room Air Cardiology Heart Sounds Regular Heart Sounds Regular Heart Sounds Regular Heart Sounds Regular Heart Sounds Regular Heart Sounds Regular Heart Sounds Regular Catheter Urinary Catheter Date of 02/21/23 Insertion [Urethral] Urinary Catheter Time of 20:10 Insertion [Urethral]
--- NOTE | 2023-02-22 12:40 | PM.OBPN ---
OB - PN: Subj Subjective Patient comments: no complaints, pain well controlled, tolerating diet and flatus present [place] infant status: doing well and well [place] feeding status: exclusively Exam Constitutional Vital Signs, click to edit/add: Last Vital Signs Temp 96.1 F L 02/22/23 03:18 Pulse 76 02/22/23 03:18 Resp 16 02/22/23 10:28 BP 123/81 02/22/23 10:11 Pulse Ox 96 02/21/23 22:36 O2 Del Method Room Air 02/22/23 10:28 Documenting provider has reviewed patient's vital signs: yes Common normals: no apparent distress, oriented x3, no limitations, healthy appearing, alert and well nourished General appearance: cooperative, comfortable, well kempt and well developed Orientation/consciousness: Yes awake, Yes oriented to person, Yes oriented to place and Yes oriented to time HENMT Common normals: normocephalic and head/scalp atraumatic Eye Common normals: PERRL Pupil: accommodation reflex normal Neck & C-Spine Common normals: full ROM and supple Chest Common normals: inspection of chest normal Respiratory Common normals: normal respiratory effort Cardio Common normals: regular rate and regular rhythm GI Common normals: Normal to inspection, nondistended, normoactive bowel sounds present, soft to palpation and non-tender Common normals: no CVA tenderness (catheter out) Extremity Common normals: normal to inspection and full ROM Neuro Common normals: CN's II-XII intact bilaterally, no focal motor deficits and no sensory deficits noted Motor exam: strength 5/5 throughout Psych Common normals: mental status grossly normal, thought process normal, cooperative and affect normal Results Labs Labs: Short CBC 02/21/23 02/22/23 Range/Units 19:45 05:50 WBC 12.9 H 14.7 H (4.0-11.0) 10^3/uL Hgb 10.9 L 9.2 L (12.0-16.0) g/dL Hct 35.5 L 29.7 L (36.0-48.0) % Plt Count 175 152 (150-450) 10^3/uL OB - PN: A/P Assessment and Plan (1) delivery (maternal condition): Assessment and Plan: clinical exam nonfocal, routine care routine post surgical care (2) contractions: Assessment and Plan: delivered by category B section (3) PIH ( induced hypertension): Assessment and Plan: on labetalol, blood pressure normal Plan - day: 1 Plan: routine postop care Time Spent with Patient Time: Total time spent is greater than 50% in coordination of care (as documented) at patient's floor/unit and/or counseling patient: Total time spent with greater than 50% in coordination of care (as documented) at patient's floor/unit and/or counseling patient: less than 15 minutes
[2023-02-22] MEDS: ENOXAPARIN SODIUM 40 MG/0.4 ML SYRINGE SUBQ (13:18)
--- NOTE | 2023-02-22 14:10 | PC.NURSE ---
LC into room, Baby currently latched with deep latch with slow intermittent sucks and occ. swallows. Mom is experienced BF mom. All other children were 39-40 weeks. is LPI at 35+2. Reviewed differences in ability of NB at 35 weeks. and impact on supply. Plan devised for initiation of pumping after feeds to aid in milk removal and establishing supply. Will also feed gtts/mls as obtained for stable blood sugars and stable weight. aware plan will be flexible depending on infant needs and ability. Verbalized understanding.
--- NOTE | 2023-02-22 19:41 | W.PC.ACHO ---
Registration Status: ADM IN Primary Language: Canadian Preferred Language: Canadian Active Medications Generic Name Dose Route Start Last Admin Trade Name Freq PRN Reason Stop Dose Admin Al Hydroxide/Mg Hydroxide 2,400 mg 02/21/23 22:00 Magnesium Hydroxide 2,400 Mg/10 Ml Oral.Susp PO Q6H PRN Dyspepsia Carboprost Tromethamine 250 mcg 02/21/23 20:03 Carboprost Tromethamine 250 Mcg/Ml 1 Ml Vial IM Q15M PRN Bleeding Docusate Sodium 100 mg 02/22/23 17:00 Docusate Sodium 100 Mg Capsule PO BID KATHLEEN Enoxaparin Sodium 40 mg 02/22/23 10:00 02/22/23 13:18 Enoxaparin Sodium 40 Mg/0.4 Ml Syringe SUBQ 40 mg Q24H KATHLEEN Administration Ferrous Sulfate 325 mg 02/22/23 17:00 Ferrous Sulfate 325 Mg Tablet PO BID KATHLEEN Sodium Chloride 1,000 mls @ 150 mls/hr 02/21/23 19:45 02/21/23 19:58 Sodium Chloride 0.9% 1,000 Ml IV 150 mls/hr .Q6H40M KATHLEEN Administration Sodium Chloride 1,000 mls @ 125 mls/hr 02/21/23 20:15 02/22/23 05:05 Sodium Chloride 0.9% 1,000 Ml IV Not Given .Q8H KATHLEEN Cefazolin Sodium/Dextrose 2 gm in 50 mls @ 100 mls/hr 02/21/23 20:15 02/21/23 20:47 Ancef IV 100 mls/hr Q6H KATHLEEN 100 mls/hr Administration Clindamycin Phosphate/Dextrose 900 mg in 50 mls @ 100 mls/hr 02/21/23 20:15 02/22/23 01:57 Cleocin Phosphate/D5w 900 Mg/50 Ml Piggyback IV Not Given Q8H KATHLEEN Oxytocin 10 unit/ Sodium 501 mls @ 6.012 mls/hr 02/21/23 20:15 02/22/23 05:08 Chloride IV Not Given Q24H KATHLEEN 2 MILLIUNIT/MIN Lactated Ringer's 1,000 mls @ 125 mls/hr 02/21/23 22:00 02/21/23 22:21 Lactated Ringers IV 125 mls/hr .Q8H KATHLEEN Administration Lactated Ringer's 1,000 mls @ 50 mls/hr 02/21/23 22:30 02/22/23 05:06 Lactated Ringers IV Not Given .Q20H KATHLEEN Ibuprofen 800 mg 02/21/23 21:54 Ibuprofen 400 Mg Tablet PO Q8H PRN Pain Ketorolac Tromethamine 30 mg 02/21/23 21:54 02/22/23 13:17 Ketorolac Tromethamine 30 Mg/Ml Vial IVP 02/23/23 21:55 30 mg Q6H PRN Administration Pain Lidocaine 5 ml 02/21/23 20:03 Lidocaine Viscous 2% 15 Ml Topical Solution TOPICAL DIRECTED PRN Pain Lidocaine 1 ml 02/21/23 20:03 Lidocaine Hcl 1% 200 Mg/20 Ml Mdv INJ DIRECTED PRN Pain Methylergonovine Maleate 0.2 mg 02/21/23 20:03 Methylergonovine Maleate 0.2 Mg/Ml Ampule IM ONCE PRN Uterine Contractility/Contract Methylergonovine Maleate 0.2 mg 02/21/23 20:03 Methylergonovine Maleate 0.2 Mg Tablet PO Q4H PRN Uterine Contractility/Contract Misoprostol 600 mcg 02/21/23 20:03 Misoprostol 100 Mcg Tablet PO ONCE PRN Uterine Bleeding Misoprostol 800 mcg 02/21/23 20:03 Misoprostol 100 Mcg Tablet SL ONCE PRN Uterine Bleeding Misoprostol 1,000 mcg 02/21/23 20:03 Misoprostol 100 Mcg Tablet KS ONCE PRN Uterine Bleeding Nalbuphine HCl 10 mg 02/21/23 20:03 Nalbuphine Hcl 10 Mg/Ml Ampule IV Q3H PRN Pain Ondansetron HCl 4 mg 02/21/23 20:03 Ondansetron 4 Mg Rapdis Tablet SL Q6H PRN Nausea And Vomiting Ondansetron HCl 4 mg 02/21/23 22:00 02/21/23 23:17 Ondansetron Pf 4 Mg/2 Ml Vial IV 4 mg Q6H PRN Administration Nausea And Vomiting Oxycodone/Acetaminophen 2 each 02/21/23 21:54 Oxycodone Hcl/Acetaminophen 5-325 Mg Tablet PO Q4H PRN Pain Oxytocin 10 unit 02/21/23 20:03 Oxytocin 100 Unit/10 Ml Vial IM ONCE PRN Uterine Bleeding Senna 17.2 mg 02/21/23 20:00 Sennosides 8.6 Mg Tablet PO QHS PRN Constipation Simethicone 80 mg 02/21/23 22:00 Simethicone 80 Mg Tab.Chew PO QID PRN Abdominal Distention Diet Category Date Time Status Regular Consistency Diet Diet 02/22/23 Breakfast Active IV Insertion/Site IV Catheter Type [Left Peripheral IV Antecubital] IV Catheter Type [Left Peripheral IV Antecubital] IV Catheter Gauge [Left 20 Antecubital] IV Catheter Gauge [Left 20 Antecubital] Neurology Patient orientation (short person,place,time,situation list) [place] coma scale total score 15 Grace coma scale total score 15 Respiratory Lung sounds [Throughout] clear Lung sounds [Throughout] clear Lung sounds [Throughout] clear Lung sounds [Throughout] clear Lung sounds [Throughout] clear Lung sounds [Throughout] clear Lung sounds [Throughout] clear Lung sounds [Throughout] clear Lung sounds [Throughout] clear Lung sounds [Throughout] clear Pulse Oximetry 100 Pulse Oximetry 96 Pulse Oximetry 97 Pulse Oximetry 97 Pulse Oximetry 97 Oxygen Delivery Method Room Air Oxygen Delivery Method Room Air Oxygen Delivery Method Room Air Oxygen Delivery Method Room Air Oxygen Delivery Method Room Air Oxygen Delivery Method Room Air Oxygen Delivery Method Room Air Oxygen Delivery Method Room Air Oxygen Delivery Method Room Air Oxygen Delivery Method Room Air Oxygen Delivery Method Room Air Cardiology Heart Sounds Regular Heart Sounds Regular Heart Sounds Regular Heart Sounds Regular Heart Sounds Regular Heart Sounds Regular Heart Sounds Regular Catheter Urinary Catheter Date of 02/21/23 Insertion [Urethral] Urinary Catheter Time of 20:10 Insertion [Urethral] Date Urinary Catheter Removed 02/22/23
[2023-02-22] MEDS: DOCUSATE SODIUM 100 MG CAPSULE PO (20:37)
[2023-02-22] MEDS: FERROUS SULFATE 325 MG TABLET PO (20:37)
[2023-02-23] VITALS (7 sets, daily range): BP systolic 117–154; BP diastolic 65–88; PULSE 91; RESP 16–18; TEMP 36.5–36.8; O2SAT 100
[2023-02-23] MEDS: KETOROLAC TROMETHAMINE 30 MG/ML VIAL IVP ×2 (03:22→10:27)
--- NOTE | 2023-02-23 08:16 | W.PC.ACHO ---
Registration Status: ADM IN Primary Language: Latvian Preferred Language: Latvian Active Medications Generic Name Dose Route Start Last Admin Trade Name Freq PRN Reason Stop Dose Admin Al Hydroxide/Mg Hydroxide 2,400 mg 02/21/23 22:00 Magnesium Hydroxide 2,400 Mg/10 Ml Oral.Susp PO Q6H PRN Dyspepsia Docusate Sodium 100 mg 02/22/23 17:00 02/22/23 20:37 Docusate Sodium 100 Mg Capsule PO 100 mg BID KATHLEEN Administration Enoxaparin Sodium 40 mg 02/22/23 10:00 02/22/23 13:18 Enoxaparin Sodium 40 Mg/0.4 Ml Syringe SUBQ 40 mg Q24H KATHLEEN Administration Ferrous Sulfate 325 mg 02/22/23 17:00 02/22/23 20:37 Ferrous Sulfate 325 Mg Tablet PO 325 mg BID KATHLEEN Administration Sodium Chloride 1,000 mls @ 150 mls/hr 02/21/23 19:45 02/21/23 19:58 Sodium Chloride 0.9% 1,000 Ml IV 150 mls/hr .Q6H40M KATHLEEN Administration Sodium Chloride 1,000 mls @ 125 mls/hr 02/21/23 20:15 02/22/23 05:05 Sodium Chloride 0.9% 1,000 Ml IV Not Given .Q8H KATHLEEN Lactated Ringer's 1,000 mls @ 125 mls/hr 02/21/23 22:00 02/21/23 22:21 Lactated Ringers IV 125 mls/hr .Q8H KATHLEEN Administration Lactated Ringer's 1,000 mls @ 50 mls/hr 02/21/23 22:30 02/22/23 05:06 Lactated Ringers IV Not Given .Q20H KATHLEEN Ibuprofen 800 mg 02/21/23 21:54 Ibuprofen 400 Mg Tablet PO Q8H PRN Pain Ketorolac Tromethamine 30 mg 02/21/23 21:54 02/23/23 03:22 Ketorolac Tromethamine 30 Mg/Ml Vial IVP 02/23/23 21:55 30 mg Q6H PRN Administration Pain Ondansetron HCl 4 mg 02/21/23 20:03 Ondansetron 4 Mg Rapdis Tablet SL Q6H PRN Nausea And Vomiting Ondansetron HCl 4 mg 02/21/23 22:00 02/21/23 23:17 Ondansetron Pf 4 Mg/2 Ml Vial IV 4 mg Q6H PRN Administration Nausea And Vomiting Oxycodone/Acetaminophen 2 each 02/21/23 21:54 Oxycodone Hcl/Acetaminophen 5-325 Mg Tablet PO Q4H PRN Pain Senna 17.2 mg 02/21/23 20:00 Sennosides 8.6 Mg Tablet PO QHS PRN Constipation Simethicone 80 mg 02/21/23 22:00 Simethicone 80 Mg Tab.Chew PO QID PRN Abdominal Distention Diet Category Date Time Status Regular Consistency Diet Diet 02/22/23 Breakfast Active Respiratory Lung sounds [Throughout] clear Lung sounds [Throughout] clear Lung sounds [Throughout] clear Lung sounds [Throughout] clear Pulse Oximetry 96 Pulse Oximetry 100 Oxygen Delivery Method Room Air Oxygen Delivery Method Room Air Oxygen Delivery Method Room Air Catheter Date Urinary Catheter Removed 02/22/23
[2023-02-23] MEDS: DOCUSATE SODIUM 100 MG CAPSULE PO (10:26)
[2023-02-23] MEDS: FERROUS SULFATE 325 MG TABLET PO (10:27)
--- NOTE | 2023-02-23 11:08 | PC.NURSE ---
1030 medicated with toradol per IV, given breast ointment and soothies with explanation on all
--- NOTE | 2023-02-23 11:29 | PM.OBDS ---
DS: Providers Provider Date of admission: 02/21/23 20:03 Primary care physician: Non-Staff PhysicianMD Admitting clinician: Shameka Hernandez Attending physician on admission: Shameka Hernandez Consults: 02/21/23 Consult to Anesthesiology Routine Consulting Provider: Manjeet Morton Attending physician on discharge: Shameka Hernandez Anticipated date of discharge: 02/24/23 DS: Diagnosis Discharge Diagnosis (1) delivery (maternal condition): Assessment and plan: DELIVERED (2) contractions: Assessment and plan: DELIVERED (3) PIH ( induced hypertension): Assessment and plan: PRESENTLY BLOOD PRESSURE NORMAL AND LABETALOL ON HOLD Plan S/P CATEGORY B CS. AMBULATING, EATING AND ELIMINATING NORMALLY. CLINICAL EXAM NON FOCAL. BABY DOING WELL. HOME TOMORROW. ZAKI TO BE REMOVED MONDAY OB - DS: Summary Hospital Course Time spent discussing smoking cessation with patient: more than 10 minutes Peripartum Data - Procedures: Procedures Operation Date: 02/21/23 18:25 Actual Procedure Side Surgeon p WITH DELIVERY OF VIABLE BABY GIRL Not Applicable Shameka Hernandez MD Peripartum Data - Vaginal Delivery Procedures: Procedures Operation Date: 02/21/23 18:25 Actual Procedure Side Surgeon p WITH DELIVERY OF VIABLE BABY GIRL Not Applicable Shameka Hernandez MD Complications complications: none Delivery method: section Gender: female Discharge plan: home Status at Discharge Functional status at discharge: independent ambulation Overall status at discharge: patient is progressing back to baseline Time Spent with Patient Time attestation: Total time spent providing and/or coordinating discharge services: Time spent: less than 30 minutes Specific discharge activities: DESCRIBED ABOVE Exam Constitutional Vital Signs, click to edit/add: Last Vital Signs Temp 97.7 F 02/23/23 11:03 Pulse 91 H 02/23/23 00:53 Resp 18 02/23/23 11:03 BP 123/71 02/23/23 08:46 Pulse Ox 96 02/22/23 19:26 O2 Del Method Room Air 02/22/23 19:26 Common normals: no apparent distress, oriented x3, healthy appearing and alert HENNE Common normals: normocephalic and head/scalp atraumatic Eye Common normals: PERRL Pupil: accommodation reflex normal Neck & C-Spine Common normals: full ROM Chest Common normals: inspection of chest normal Respiratory Common normals: normal respiratory effort Cardio Common normals: regular rate and regular rhythm GI Common normals: Normal to inspection, nondistended, normoactive bowel sounds present and soft to palpation (INCISION DRY AND INTACT, HAS ZAKI) Common normals: no CVA tenderness Extremity Common normals: normal to inspection and full ROM Neuro Common normals: oriented x3, CN's II-XII intact bilaterally, moves all extremities, no focal motor deficits and no sensory deficits noted Motor exam: strength 5/5 throughout Psych Common normals: mental status grossly normal, thought process normal, cooperative and affect normal Discharge Plan Discharge Disposition: Home, Self-Care Condition: Good Assessment: CLINICAL EXAM NONFOCAL, BABY DOING WELL, BREAST FEEDING WITHOUT PROBLEM, HAS NO CONCERNS OR COMPLAINTS Health Concerns: NONE Plan of Treatment: DISCHARGE 02/24/23 Discharge Medications: Continued magnesium oxide 400 mg (241.3 mg magnesium) tablet PO DAILY Pro Fe 180 mg iron capsule Held labetalol 100 mg tablet 100 mg PO Q12H Hold Instructions: HOLD UNTIL NEED FOR INDICATED BY HYPERTENSION Discontinued prednisone 1 mg tablet 3.5 mg PO DAILY prednisone 5 mg tablet Activity: resume usual activities as tolerated Activity Detail: WALKING ONLY EXERCISE, ONLY LIFT BABY Diet: regular diet Activity Restrictions/Additional Instructions: NO SEX FOR SIX WEEKS, SPORTS BRA 06/02 WITH NO STIMULATION IF DECIDE TO STOP BREAST FEEDING, MAY CLIMB STAIRS, NO DRIVING FOR 4 WEEKS, NO SWIMMING OR BATHTUB FOR 6 WEEKS, MAY SHOWER, MAKE APPOINTMENT FOR MONDAY FOR INCISION CHECK WITH DR. JOHANSEN, BABY TO SEE PEDS WITHING THE WEEK, GENERAL COVID AND RSV PRECAUTIONS GIVEN, SCRIPTS TO PATIENT: IRON, PERCOCET, MOTRIN AND COLACE Forms: Portal Instructions Follow Up Appointments: NEEDS INCISION CHECK MONDAY WITH DR. JOHANSEN Discharge location: DISCHARGE MONDAY TO HOME
--- NOTE | 2023-02-23 12:33 | P.OBPRC_ITS ---
Procedure Pre-op/Post-op diagnoses: Pre-Op/Post-Op Diagnoses Operation Date: 02/21/23 18:25 <No data on this case meets the specified criteria> Procedure: Procedures Operation Date: 02/21/23 18:25 Actual Procedure Side Surgeon CATEGORY B WITH DELIVERY OF VIABLE BABY GIRL Not Applicable Shameka Parra MD Compugraph Operator: Sen Shelton Estimated blood loss (mL): 500 Disposition: other (LDRP 252) Anesthesia type: Spinal Complications: NONE Narrative: PREOP DX: CATEGORY B CS FOR MATERNAL ISSUES POSTOP DX: SAME ATTENDING: DR. PARRA RETAIL MARKETING SPECIALIST: SEN SHELTON PROCEDURE: URGENT REPEAT CS ANESTHESIA: SPINAL ANESTHESIOLOGIST: DR. Caruso URINE OUTPUT: ADEQUATE AND CLEAR COMPLICATIONS: NONE SPECIMEN: PLACENTA FINDINGS: VIABLE CRYING INFANT GIRL CLINICAL NOTE: THE PATIENT PRESENTED TO [facility] FOR NST AND WAS FOUND TO BE GURWINDER. SHE WAS A SCHEDULED REPEAT CS (NUMBER 5) ON MONDAY DUE TO HISTORY OF ABRUPTION AND UTERINE HISTORY. SHE DID NOT COMPLAIN OF ANY SEVERE PAIN IN ABDOMEN. THE TRACING WAS CATEGORY I. RISKS OF SURGERY INCLUDING NEED FOR HYSTERECTOMY OR BLOOD TRANSFUSION BUT NOT LIMITED TO THESE EXPLAINED WITH STATED UNDERSTANDING. THE CONSENT WAS SIGNED. THE FARNSWORTH WAS PLACED. OPERATIVE NOTE: THE PATIENT WAS BROUGHT TO THE OR AND IN SITTING POSITION ON THE OR TABLE THE SPINAL WAS ADMINISTERED WITHOUT COMPLICATION THE PATIENT WAS PLACED IN SUPINE POSITION WITH WEDGE UNDER RIGHT FLANK TO DIVERT UTERUS OFF OF THE AORTA THE PATIENT WAS PREPPED AND DRAPED ANESTHETIC LEVEL ASSESSED AND ADEQUATE PFANNENSTIEL INCISION MADE THROUGH PRIOR PFANNENSTIEL INCISIONS THIS INCISION WAS CARRIED DOWN TO THE FASCIA THE FASCIA WAS NICKED IN THE MIDLINE AND THIS OPENING WAS EXTENDED WITH RUFFIN SCISSORS TO THE FULL EXTENT OF THE SKIN INCISION THE SUPERIOR AND INFERIOR BORDER OF THE FASCIA WAS FROM THE RECTUS ABDOMINIS MUSCLE WITH THE BOVIE ON CUTTING CURRENT AT 40 THE MIDLINE MUSCLES WERE WITH THE HEMOSTAT, THE PERITONEUM IDENTIFIED AND INCISED WITH THE METZENBAUM SCISSORS THIS PERITONEAL OPENING WAS THEN MANUALLY WIDENED THE BLADDER RETRACTOR WAS PLACED THE BLADDER FLAP WAS NOT DEVELOPED DUE TO ADHESIONS THE LOWER UTERINE SEGMENT WAS INCISED TWO INCHES WITH THE SCALPEL AND THIS OPENING WAS MANUALLY WIDENED THE AMNIOTIC SAC WAS RUPTURE WITH THE ALLIS FORCEPS FOR CLEAR AMNIOTIC FLUID DUE TO BODY HABITUS PREVENTING MANUAL DELIVERY OF THE VERTEX, THE VACUUM CUP WAS APPLIED TIMES ONE TO DELIVER THE HEAD UPON DELIVERY OF THE HEAD, AFTER ASCERTAINING NO NUCHAL CORD, THE SHOULDERS AND TORSO WERE EASILY DELIVERED WITH FUNDAL PRESSURE A CRYING MOVING GIRL WAS OBSERVED THE UMBILICAL CORD WAS MILKED TOWARDS THE BABY FOR 30 SECONDS THE UMBILICAL CORD WAS DOUBLY CLAMPED AND CUT AND THE BABY WAS HANDED TO THE SPRINKLER TRUCK DRIVER IN THE OR FOR ASSESSMENT THE PLACENTA WAS MANUALLY EXTRACTED INTACT THE UTERUS WAS EXPLORED AND FOUND TO BE INTACT AND NOT APPARENTLY THINNED OUT ADHESIONS PREVENTED EXPLORATION OF THE LATERAL GUTTERS OR POSTERIOR CUL-DE-SAC THE ANTERIOR CUL-DE-SAC WAS CLEARED OF CLOTS THE UTERUS WAS CLOSED IN A SINGLE LAYER WITH RUNNING LOCKED STITCH OF O VICRYL THE URINE WAS CLEAR THE LAP SPONGE AND INSTRUMENT COUNT WERE CORRECT THE FASCIA WAS CLOSED WITH A RUNNING STITCH NOT LOCKED OF O VICRYL THE SUBCUTANEOUS TISSUE WAS CLOSED WITH 2 - 0 CHROMIC THE SKIN WAS CLOSED WITH ZAKI THE STERILE DRESSING WAS APPLIED THE PATIENT WAS TRANSPORTED BACK TO HER ROOM ON MATERNITY, (252), WITH HER INFANT GIRL THE EBL WAS 500 CC heart rate - 5 minute: 100 bpm or Greater (see career and guidance counselor's assessment note at )
[2023-02-23] MEDS: ENOXAPARIN SODIUM 40 MG/0.4 ML SYRINGE SUBQ (18:17)
--- NOTE | 2023-02-23 18:32 | PC.NURSE ---
1800 medicated with toradol for pain c/o 6, denies needs
[2023-02-24] MEDS: SENNOSIDES 8.6 MG TABLET 17.2 MG PO (01:01)
[2023-02-24] MEDS: IBUPROFEN 400 MG TABLET 800 MG PO ×2 (01:02→08:31)
[2023-02-24 01:05] VITALS: BP 151/75; PULSE 90; RESP 16; TEMP 36.4
[2023-02-24 02:10] VITALS: BP 135/78
--- NOTE | 2023-02-24 07:30 | W.PC.ACHO ---
Registration Status: ADM IN Primary Language: Tristanian Preferred Language: Tristanian Active Medications Generic Name Dose Route Start Last Admin Trade Name Freq PRN Reason Stop Dose Admin Al Hydroxide/Mg Hydroxide 2,400 mg 02/21/23 22:00 Magnesium Hydroxide 2,400 Mg/10 Ml Oral.Susp PO Q6H PRN Dyspepsia Docusate Sodium 100 mg 02/22/23 17:00 02/23/23 10:26 Docusate Sodium 100 Mg Capsule PO 100 mg BID KATHLEEN Administration Enoxaparin Sodium 40 mg 02/22/23 10:00 02/23/23 18:17 Enoxaparin Sodium 40 Mg/0.4 Ml Syringe SUBQ 40 mg Q24H KATHLEEN Administration Ferrous Sulfate 325 mg 02/22/23 17:00 02/23/23 10:27 Ferrous Sulfate 325 Mg Tablet PO 325 mg BID KATHLEEN Administration Sodium Chloride 1,000 mls @ 150 mls/hr 02/21/23 19:45 02/21/23 19:58 Sodium Chloride 0.9% 1,000 Ml IV 150 mls/hr .Q6H40M KATHLEEN Administration Sodium Chloride 1,000 mls @ 125 mls/hr 02/21/23 20:15 02/22/23 05:05 Sodium Chloride 0.9% 1,000 Ml IV Not Given .Q8H KATHLEEN Lactated Ringer's 1,000 mls @ 125 mls/hr 02/21/23 22:00 02/21/23 22:21 Lactated Ringers IV 125 mls/hr .Q8H KATHLEEN Administration Lactated Ringer's 1,000 mls @ 50 mls/hr 02/21/23 22:30 02/22/23 05:06 Lactated Ringers IV Not Given .Q20H KATHLEEN Ibuprofen 800 mg 02/21/23 21:54 02/24/23 01:02 Ibuprofen 400 Mg Tablet PO 800 mg Q8H PRN Administration Pain Ondansetron HCl 4 mg 02/21/23 20:03 Ondansetron 4 Mg Rapdis Tablet SL Q6H PRN Nausea And Vomiting Ondansetron HCl 4 mg 02/21/23 22:00 02/21/23 23:17 Ondansetron Pf 4 Mg/2 Ml Vial IV 4 mg Q6H PRN Administration Nausea And Vomiting Oxycodone/Acetaminophen 2 each 02/21/23 21:54 Oxycodone Hcl/Acetaminophen 5-325 Mg Tablet PO Q4H PRN Pain Senna 17.2 mg 02/21/23 20:00 02/24/23 01:01 Sennosides 8.6 Mg Tablet PO 17.2 mg QHS PRN Administration Constipation Simethicone 80 mg 02/21/23 22:00 Simethicone 80 Mg Tab.Chew PO QID PRN Abdominal Distention Respiratory Lung sounds [Throughout] clear Pulse Oximetry 100 Oxygen Delivery Method Room Air Oxygen Delivery Method Room Air Bowels Bowel Pattern Constipated
[2023-02-24] MEDS: DOCUSATE SODIUM 100 MG CAPSULE PO (08:25)
[2023-02-24] MEDS: MAGNESIUM HYDROXIDE 2,400 MG/10 ML ORAL.SUSP 2400 MG PO (08:26)
[2023-02-24 08:30] VITALS: BP 119/87; PULSE 96; RESP 16; TEMP 36.8
--- NOTE | 2023-02-24 10:28 | PM.OBPN ---
OB - PN: Subj Subjective Patient comments: no complaints Offerle status: doing well Exam Constitutional Vital Signs, click to edit/add: Last Vital Signs Temp 98.3 F 02/24/23 08:30 Pulse 96 H 02/24/23 08:30 Resp 16 02/24/23 08:30 BP 119/87 02/24/23 08:30 Pulse Ox 100 02/23/23 16:50 O2 Del Method Room Air 02/24/23 08:30 Documenting provider has reviewed patient's vital signs: yes Common normals: no apparent distress Respiratory Common normals: clear to auscultation bilaterally Cardio Common normals: regular rate and regular rhythm GI Common normals: Normal to inspection, nondistended, normoactive bowel sounds present Extremity Common normals: no clubbing, cyanosis or edema and no calf tenderness OB - PN: A/P Assessment and Plan (1) delivery (maternal condition): (2) contractions: (3) PIH ( induced hypertension): Plan - day: 3 Plan: routine postop care and discharge home Time Spent with Patient Time: Total time spent is greater than 50% in coordination of care (as documented) at patient's floor/unit and/or counseling patient: Total time spent with greater than 50% in coordination of care (as documented) at patient's floor/unit and/or counseling patient: less than 15 minutes
== END 2023-02-24 12:00 | disposition home or self-care (01) | DRG 788 ==
LOC: FBCO 19:07 → FBC 19:07
PROVIDERS: Admitting Provider Obstetrics & Gynecology; Visit Provider Obstetrics & Gynecology
PROC: 10D00Z1 Extraction of Products of Conception, Low, Open Approach (ICD-10-PCS; CPT 59514; principal; 2023-02-21 18:25)
DX: O34.211 Maternal care for low transverse scar from previous cesarean delivery (principal); Z37.0 Single live birth; O75.82 Onset (spontaneous) of labor after 37 completed weeks of gestation but before 39 completed weeks gestation, with delivery by (planned) cesarean section; O13.4 Gestational [pregnancy-induced] hypertension without significant proteinuria, complicating childbirth; O99.214 Obesity complicating childbirth; E66.01 Morbid (severe) obesity due to excess calories; Z3A.38 38 weeks gestation of pregnancy; Z87.59 Personal history of other complications of pregnancy, childbirth and the puerperium
CPT/HCPCS: 36415; 51702; 59050; 76818; 80307; 85025; 86850; 86900; 86901; 88307; 94667; 94668; 94761; 96372; 96374; 96375; 96376

== ENCOUNTER 2023-02-28 08:50 | Outpatient (RCR) | payer OTHER, SELFPAY ==
[2023-02-28 17:49] VITALS: PULSE 80; RESP 20; TEMP 36.6; O2SAT 96
--- NOTE | 2023-02-28 17:55 | PC.NURSE ---
Pt just had chetan removed by Elie RIVERA in Dr office. Left 2-3 inches of c/s incision had a upper flap where chetan previously were. Incision line sealed and does not open, but upper edge appears raw and open. Pt requests pictures with her phone. Pt then texts picture to Dr Camacho. Steri strips applied at this time.
== END 2023-02-28 16:40 | disposition home or self-care (01) ==
LOC: FBCO 08:50
PROVIDERS: Visit Provider Obstetrics & Gynecology
DX: Z39.1 Encounter for care and examination of lactating mother (principal)

== ENCOUNTER 2023-03-07 08:57 | Outpatient (RCR) | payer OTHER, SELFPAY ==
--- NOTE | 2023-03-07 11:19 | PC.NURSE ---
Kavon and Grace arrive for support. Baby 2 weeks old now, 37+3 adjusted age. Baby remains sleepy at the breast. Latches and does well per mom for first 5-7 minutes. then becomes slow and intermittent in swallows. Mom also reports low supply as is only able to pump 1.5 oz combined when pumping. States tries to pump every 2-3 hours. Taking [employer] drops to aid in supply. Uses [employer] pump at home. Shown the [employer] starter system to give supplement along with direct breast feeding. Mom states has struggled in past with low supply but never this low . Encouraged to continue feeding and pumping as doing. Verbalized understanding.
== END 2023-03-07 11:20 | disposition home or self-care (01) ==
LOC: FBCO 08:57
PROVIDERS: Visit Provider Obstetrics & Gynecology
DX: O09.293 Supervision of pregnancy with other poor reproductive or obstetric history, third trimester (principal); O34.219 Maternal care for unspecified type scar from previous cesarean delivery; O99.013 Anemia complicating pregnancy, third trimester; D50.9 Iron deficiency anemia, unspecified; Z3A.00 Weeks of gestation of pregnancy not specified
CPT/HCPCS: G0463

== ENCOUNTER 2023-03-14 07:56 | Outpatient (RCR) | payer OTHER, SELFPAY ==
--- NOTE | 2023-03-14 14:03 | PC.NURSE ---
May arrive for support. Mom states we are doing so great! Relate that latching is better, still having trouble with tight clamp of mouth when latching . to breast in football hold, noted to have tight body posture, hypertonia , resistant to flex at hips and resistant to head lag for relaxed latch. Infant noted to have an exaggerated startle reflex as well. Mom interested in chiropractic or Cranial sacral therapy as a way to help reduce tension in infant. Parent will contact ORTHODONTIC LAB TECHNICIAN of her choice and Peds for varification.
--- NOTE | 2023-03-14 14:59 | PC.NURSE ---
Kavon and Latrice arrive for support. Baby doing well per mom, gaining weight and filling out Still sleepy at breast requires stimulation to keep feeding. also receiving formula as mom only pumping 1.5-2 oz each pump session. States amount has increased since using [employer] milk support. Able to feed and satisfy infant with breastmilk only until late evening and first night time feed, so offers formula at those times while pumping to continue stimulation. Also, father can participate in care of baby. No further concerns at this time.
== END 2023-03-14 11:10 | disposition home or self-care (01) ==
LOC: FBCO 07:56
PROVIDERS: Visit Provider Obstetrics & Gynecology
DX: Z39.1 Encounter for care and examination of lactating mother (principal)
CPT/HCPCS: G0463

== ENCOUNTER 2023-03-22 09:30 | Outpatient (RCR) | payer OTHER, SELFPAY ==
--- NOTE | 2023-03-22 11:07 | PC.NURSE ---
Arrive for weight check. Latrice's weight up 284 gms since last week. Mom requesting to stop pumping and supplementing feeds it's a lot of work Discussed risks and Benefits of same. Mom decides to offer breast every 2-3 hours, supplement with pumped milk as indicates (not at every feed) and continue to weigh on home scales. Will continue to give formula during night feeds as is her preference so father can help with feedings. States pumps 2- 2.5 oz every 3 hours. goes to breast will only pump 1 oz. States pumps 15 min each session, taking supplement [employer] for supply. Started to take prescribed FE as is chronically anemic and should be taking it . Discussed iron rich foods. Will follow up in [facility] group for next weight. No concerns voiced per mom.
== END 2023-03-22 11:00 | disposition home or self-care (01) ==
LOC: FBCO 09:30
PROVIDERS: Visit Provider Obstetrics & Gynecology
DX: Z39.1 Encounter for care and examination of lactating mother (principal)

== ENCOUNTER 2023-11-08 20:27 | Outpatient (REF) | payer OTHER, SELFPAY ==
[2023-11-14 12:09] LABS: Age Gdln ACOG Testing Note (.); HPV Aptima Negative (Negative); IGP, Aptima HPV, rfx 16/18,45 Note (.)
== END 2023-11-08 20:28 | disposition home or self-care (01) ==
LOC: LAB 20:27
PROVIDERS: Visit Provider Obstetrics & Gynecology
DX: Z01.419 Encounter for gynecological examination (general) (routine) without abnormal findings (principal)
CPT/HCPCS: 87624; G0145

== ENCOUNTER 2023-11-22 20:30 | Outpatient (REF) | payer OTHER, SELFPAY ==
--- OUTSIDE RECORDS SUMMARY | 2023-11-22 20:36 | XMS_ITS | CCD ---
Author Organization [facility] Care Team Providers Care [employer] Teacher Name Role Phone GINGER, DAT S Referring Unavailable NIMISHA, JENNA Primary Care Unavailable VIGESAA, DAT S Referring Unavailable NIMISHA, JENNA Primary Care Unavailable VIGESAA, DAT S Referring Unavailable NIMISHA, JENNA Primary Care Unavailable VIGESAA, DAT S Referring Unavailable NIMISHA, JENNA Primary Care Unavailable VIGESAA, DAT S Referring Unavailable NIMISHA, JENNA Primary Care Unavailable VIGESAA, DAT S Referring Unavailable NIMISHA, JENNA Primary Care Unavailable VIGESAA, DAT S Referring Unavailable NIMISHA, JENNA Primary Care Unavailable Pcp, No Primary Care Provider UnavailLidia Goodrich Primary Care Provider [phone] NABOR MARROQUIN Referring Unavailable PROVIDER, UNKNOWN Attending Unavailable PROVIDER, UNKNOWN Admitting Unavailable PROVIDER, UNKNOWN Admitting Unavailable NABOR MARROQUIN Referring Unavailable PROVIDER, UNKNOWN Attending Unavailable NABOR MARROQUIN Referring Unavailable PROVIDER, UNKNOWN Attending Unavailable PROVIDER, UNKNOWN Admitting Unavailable PRINZ EDELMIRA, JENNA Admitting Unavailab NABOR Marrero Attending Unavailable SELF, REFERRED Primary Care Unavailable SELF, REFERRED Referring Unavailable MACHO, ABDULAZIM Admitting Unavailable MACHO, ABDULAZIM Attending Unavailable DOUG, LUIS Consulting Unavailable DR CHRISTOPHER MCKEON Primary Care Unavailable DOUG, LUIS Attending Unavailable DOUG, LUIS Admitting Unavailable JUNE AC Consulting Unavailable DIAB ., LEYDA Attending Unavailable DIAB ., LEYDA Admitting Unavailable ELSA Schneider, DR WHITE Primary Care Unavailable DIAB ., LEYDA Consulting Unavailable DOUG, LUIS Consulting Unavailable ELSA Schneider, DR WHITE Primary Care Unavailable DOUG, LUIS Attending Unavailable DOUG, LUIS Admitting Unavailable ROLLING MEADOWS, DR JR Da Silva Consulting Unavailable ELSA Schneider, DR WHITE Primary Care Unavailable DOUG, LUIS Attending Unavailable DOUG, LUIS Admitting Unavailable DOUG, LUIS Consulting Unavailable DOUG, LUIS Consulting Unavailable HOY ., DR WHITE Primary Care Unavailable DOUG, LUIS Attending Unavailable DOUG, LUIS Admitting Unavailable DOUG, LUIS Consulting Unavailable HOY ., DR WHITE Primary Care Unavailable DOUG, LUIS Attending Unavailable DOUG, LUIS Admitting Unavailable HOY ., DR WHITE Consulting Unavailable HOY ., DR WHITE Primary Care Unavailable HOY ., DR WHITE Attending Unavailable HOY ., DR WHITE Admitting Unavailable DOUG, LUIS Consulting Unavailable HOY ., DR WHITE Primary Care Unavailable DOUG, LUIS Attending Unavailable DOUG, LUIS Admitting Unavailable DOUG, LUIS Consulting Unavailable HOY ., DR WHITE Primary Care Unavailable DOUG, LUIS Attending Unavailable DOUG, LUIS Admitting Unavailable DOUG, LUIS Consulting Unavailable HOY ., DR WHITE Primary Care Unavailable DOUG, LUIS Attending Unavailable DOUG, LUIS Admitting Unavailable ZIEBER, DR LINO Funk Consulting Unavailable ROLLING MEADOWS, DR JR Da Silva Consulting Unavailable HOY ., DR WHITE Primary Care Unavailable DOUG, LUIS Attending Unavailable DOUG, LUIS Admitting Unavailable DOUG, LUIS Consulting Unavailable DOUG, LUIS Consulting Unavailable HOY ., DR WHITE Primary Care Unavailable DOUG, LUIS Attending Unavailable DOUG, LUIS Admitting Unavailable ZIEBER, DR LINO Funk Consulting Unavailable Jenna Bansal Primary Care Provider [phone] HOMER RAMOS Referring Unavailable JENNA BANSAL Primary Care Unavailable KOTA Bansal Primary Care Provider TUCKER Zaidi Attending Provider Alanis Zaidi Unavailable Nabor Marroquin DO Unavailable [phone] Gopi ENGLISH, Duncan Lange Unavailable [phone] Magnus ENGLISH, Yudy Unavailable Jenna Bansal Primary Care Unavailable Alanis Zaidi Admitting Unavailable Alanis Zaidi Attending Unavailable Jenna Bansal Primary Care Unavailable Doug, Luis Admitting Unavailable Luis Camacho Attending Unavailable LUIS CAMACHO Attending Unavailable Allergies Allergy Classification Reported Allergen(s) Allergy Type Date of Onset Reaction(s) Facility Adhesive Tape (1 source) Adhesive Tape Substance Allergy 6 Rash [facility] (2 sources) BANDAGE TAPE; Translations: [BANDAGE TAPE] Propensity to adverse reactions (disorder) 6 Rash [facility] (3 sources) Adhesive Tape; Translations: [ADHESIVE TAPE] Propensity to adverse reactions (disorder) 8 [facility] (1 source) Adhesive bandage Drug allergy (disorder) [facility] (1 source) tape adhesive Propensity to adverse reactions rash [facility] Other Medications Current Medications Medication Drug Class(es) Dates Sig (Normalized) Sig (Original) Aircast Sport Ankle Brace/Left - (1 source) Start: 07-06-2023 Aircast Sport Ankle Brace/Left - as directed Jun, Active Aspirin (1 source) Platelet Aggregation Inhibitor, Nonsteroidal Anti-inflammatory Drug BABY ASPIRIN PO Take by mouth 0 Active docusate sodium 100 mg oral capsule (1 source) Start: 09-16-2020 take 1 capsule by mouth twice daily at mealtime docusate sodium (COLACE) 100 MG capsule Take 1 Capsule by mouth 2 times daily (with meals). 60 Capsule 3 09/16/2020 Active ferrous sulfate 325 mg oral tablet (1 source) Start: 09-16-2020 take 1 tablet by mouth twice daily at mealtime ferrous sulfate 325 (65 Fe) MG tablet Take 1 Tablet by mouth 2 times daily (with meals). 60 Tablet 3 09/16/2020 Active ibuprofen 600 mg oral tablet (1 source) Nonsteroidal Anti-inflammatory Drug Start: 09-15-2020 take 1 tablet by mouth every six hours ibuprofen (MOTRIN) 600 MG tablet Take 1 Tablet by mouth every 6 hours. 30 Tablet 3 09/15/2020 Active lidocaine 0.05 mg/mg medicated patch (1 source) Antiarrhythmic, Amide Local Anesthetic Start: 09-16-2020 apply 1 dose transdermal route every twenty-four hours lidocaine (LIDODERM) 5 % patch Place 1 Patch on the skin every 24 hours. 10 Patch 3 09/16/2020 Active magnesium oxide 400 mg oral tablet (1 source) Start: 10-17-2022 take 1 tablet by mouth once daily as needed magnesium oxide (MAG-OX) 400 MG tablet TAKE 1 TABLET BY MOUTH EVERY DAY NEEDED FOR 30 DAYS 0 10/17/2022 Active metoprolol tartrate 25 mg oral tablet (1 source) beta-Adrenergic [place] Start: 07-30-2020 take 1 tablet by mouth twice daily metoprolol (LOPRESSOR) 25 MG tablet Take 1 Tablet by mouth 2 times daily. 60 Tablet 3 07/30/2020 Active polyethylene glycol 3350 07684 mg powder for oral solution (1 source) Osmotic Laxative Start: 09-15-2020 polyethylene glycol (MIRALAX) packet Dissolve 1 Packet in 8 ounces of liquid and drink every 12 hours as needed (for constipation not relieved by Colace). 10 Each 3 09/15/2020 Active TABS tablet (1 source) Start: 09-16-2020 take 1 tablet by mouth once daily TABS tablet Take 1 Tablet by mouth daily. 30 Tablet 5 09/16/2020 Active Vit-Fe Fumarate-FA ( VITAMINS PO) (1 source) Vit-Fe Fumarate-FA ( VITAMINS PO) Take by mouth 0 Active sennosides, senior care 8.6 mg oral tablet (1 source) Start: 09-15-2020 take 1 tablet by mouth at bedtime senna (SENOKOT) 8.6 MG tablet Take 1 Tablet by mouth at bedtime. 30 Tablet 0 09/15/2020 Active simethicone 80 mg chewable tablet (1 source) Start: 09-15-2020 take 1 tablet by mouth every six hours as needed simethicone (GAS-X) 80 MG chewable tablet Take 1 Tablet by mouth every 6 hours as needed for Flatulence. 30 Tablet 3 09/15/2020 Active Completed/Discontinued Medications Medication Drug Class(es) Dates Sig (Normalized) Sig (Original) amoxicillin 875 mg / clavulanate 125 mg oral tablet (1 source) Penicillin-class Antibacterial Start: 12-04-2018 take 1 tablet by mouth every twelve hours Amoxicillin-Pot Clavulanate 875-125 MG 1 tablet Orally every 12 hrs for 7 days November, Not-Taking/PRN fluticasone propionate 0.05 mg/actuat metered dose nasal spray (2 sources) Corticosteroid Start: 08-20-2018 take 1 spray(s) nasal route once daily as needed Fluticasone Propionate 50 MCG/ACT 1 spray in each nostril Nasally Once a day for 21 days November, Not-Taking/PRN Vitamin D (1 source) Vitamin D Not-Taking/PRN Problems Active Problems Problem Classification Problem Date Documented Date Episodic/Chronic Cardiac dysrhythmias (2 sources) Supraventricular tachycardia; Translations: [Supraventricular tachycardia] Onset: 06-22-2018 06-22-2018 Chronic Genitourinary symptoms and ill-defined conditions (1 source) Dysuria; Translations: [Dysuria] Episodic Hemorrhage during ; abruptio placenta; placenta previa (8 sources) Other antepartum hemorrhage, first trimester; Translations: [Antepartum hemorrhage, unspecified, first trimester] Onset: 08-21-2022 Episodic Menstrual disorders (4 sources) Irregular menstruation, unspecified; Translations: [Amenorrhea] Onset: 08-29-2022 Chronic Other complications of (2 sources) Maternal obesity complicating , childbirth and the puerperium, antepartum; Translations: [Obesity complicating , third trimester] Onset: 01-11-2018 01-11-2018 Chronic Other complications of (1 source) Other placental disorders, first trimester; Translations: [[facility] PLACENTAL DISORDER FIRST TRI] Onset: 09-02-2022 Episodic Other injuries and conditions due to external causes (1 source) Injury, unspecified, initial encounter Episodic Other and delivery including normal (9 sources) Encounter for supervision of other normal , first trimester; Translations: [Encounter for supervision of normal , unspecified, first trimester] Onset: 07-18-2022 Episodic Polyhydramnios and other problems of amniotic cavity (1 source) Other specified disorders of amniotic fluid and membranes, second trimester, not applicable or unspecified; Translations: [[facility] D/O AMNIO FL MEMB 2ND TRI UNS] Onset: 10-07-2022 Episodic Residual codes; unclassified (1 source) 15 weeks gestation of ; Translations: [15 WEEKS GESTATION OF ] Onset: 10-07-2022 Episodic Residual codes; unclassified (1 source) 13 weeks gestation of ; Translations: [13 WEEKS GESTATION OF ] Onset: 09-18-2022 Episodic Residual codes; unclassified (1 source) 10 weeks gestation of ; Translations: [10 WEEKS GESTATION OF ] Onset: 09-02-2022 Episodic Residual codes; unclassified (1 source) 9 weeks gestation of ; Translations: [9 WEEKS GESTATION OF ] Onset: 08-22-2022 Episodic Sprains and strains (1 source) Sprain of unspecified ligament of left ankle, initial encounter Episodic Unclassified (1 source) Injury, unspecified, initial encounter; Translations: [Injury, unspecified, initial encounter] Onset: 07-06-2023 Urinary tract infections (1 source) Urinary tract infectious disease; Translations: [UTI (lower urinary tract infection)] Episodic Past or Other Problems Problem Classification Problem Date Documented Date Episodic/Chronic Diabetes or abnormal glucose tolerance complicating ; childbirth; or the puerperium (1 source) Abnormal glucose complicating ; Translations: [Abnormal glucose complicating ] Onset: 12-24-2022 Episodic Immunizations and screening for infectious disease (1 source) Encounter for screening for human papillomavirus (HPV); Translations: [ENC SCREENING HUMAN PAPILLOMAVIRUS] Onset: 07-08-2022 Episodic Other complications of ; puerperium affecting management of mother (2 sources) Abnormality of heart; Translations: [ ventricular septal defect affecting antepartum care of mother] Onset: 01-11-2018 01-11-2018 Episodic Other complications of ; puerperium affecting management of mother (1 source) , affecting management of mother; Translations: [Maternal care for intrauterine , not applicable or unspecified] Onset: 09-13-2020 09-13-2020 Episodic Other complications of (2 sources) Supervision of with other poor reproductive or obstetric history, third trimester; Translations: [ with other poor obstetric history] Onset: 01-11-2018 01-11-2018 Episodic Other complications of (2 sources) Supervision of other high risk pregnancies, second trimester; Translations: [Supervision of other high risk pregnancies, second trimester] Onset: 10-26-2022 Episodic Other screening for suspected conditions (not mental disorders or infectious disease) (14 sources) Encounter for screening, unspecified; Translations: [Encounter for other screening for genetic and chromosomal anomalies] Onset: 01-11-2018 Episodic Residual codes; unclassified (2 sources) Personal history of other complications of , childbirth and the puerperium; Translations: [Personal history of other complications of , childbirth and the puerperium] Onset: 10-26-2022 Episodic Results Test Name Value Interpretation Reference Range Facility XR ankle LT min 3V*on 2022 XR ankle LT min 3V* [address] [address] XRay Report Signed Patient: Kavon Swain MR#: [id number] : 1990 Acct:[id number] Age/Sex: 32 / F ADM Date: 07/06/23 Loc: XDUCLY Room: Type: [facility] Attending Dr: Alanis Zaidi APRN Copies to: Alanis Zaidi APRN Ordering Provider: Alanis Zaidi APRN Date of Service: 07/06/23 XR/XR ankle LT min 3V*: Injury LEFT ANKLE - 3 views CLINICAL DATA: Twisting injury left ankle 12 days ago with continued pain and bruising. COMPARISON: None AP, lateral and oblique views were obtained. There is no evidence of fracture or dislocation. The talar dome is intact. There is diffuse soft tissue swelling. XR/XR ankle LT min 3V* IMPRESSION: NO ACUTE BONY INJURY. Impression dictated by: Vira Pulliam M.D.07/06/2023 5:18 PM Dictation Location: [place] [address] Transcribed By: [facility] 07/06/231717 Dictated By: Vira Pulliam MD 07/06/231715 Signed By: 07/06/231717 Normal [facility] XR ankle LT min 3V* [facility] Other XR ankle LT min 3V* [facility] Other XR ankle LT min 3V* [address] [place] [address] [facility] Other XR ankle LT min 3V* [place] [address] [facility] Other XR ankle LT min 3V* XRay Report [facility] Other XR ankle LT min 3V* Signed [facility] Other XR ankle LT min 3V* Patient: Kavon Swain MR#: [facility] Other XR ankle LT min 3V* [id number] [facility] Other XR ankle LT min 3V* : 1990 Acct:[id number] [facility] Other XR ankle LT min 3V* Age/Sex: 32 / F ADM Date: 07/06/23 [facility] Other XR ankle LT min 3V* Loc: XDUCLY Room: Type: [facility] Other XR ankle LT min 3V* Attending Dr: Alanis Zaidi APRN [facility] Other XR ankle LT min 3V* Copies to: Alanis Zaidi APRN [facility] Other XR ankle LT min 3V* Ordering Provider: Alanis Zaidi APRN [facility] Other XR ankle LT min 3V* Date of Service: 07/06/23 [facility] Other XR ankle LT min 3V* XR/XR ankle LT min 3V*: Injury [facility] Other XR ankle LT min 3V* LEFT ANKLE - 3 views [facility] Other XR ankle LT min 3V* CLINICAL DATA: Twisting injury left ankle 12 days ago with continued pain and bruising. [facility] Other XR ankle LT min 3V* COMPARISON: None [facility] Other XR ankle LT min 3V* AP, lateral and oblique views were obtained. There is no evidence of fracture or dislocation. [facility] Other XR ankle LT min 3V* The talar dome is intact. There is diffuse soft tissue swelling. [facility] Other XR ankle LT min 3V* XR/XR ankle LT min 3V* [facility] Other XR ankle LT min 3V* IMPRESSION: [facility] Other XR ankle LT min 3V* NO ACUTE BONY INJURY. [facility] Other XR ankle LT min 3V* Impression dictated by: Vira Pulliam M.D.07/06/2023 5:18 PM [facility] Other XR ankle LT min 3V* Dictation Location: [place] [address] [facility] Other XR ankle LT min 3V* Transcribed By: [facility] 07/06/23 [facility] Other XR ankle LT min 3V* Dictated By: Vira Pulliam MD 07/06/23 [facility] Other XR ankle LT min 3V* Signed By: [facility] Other XR ankle LT min 3V* 07/06/23 [facility] Other Glucose Tolerance 3 Houron 0 12-24-2022 Glucose Tolerance 3 Hour Normal [facility] Comment on above: Order Comment: FASTI NG PATIENT FINISHED 100 GRAMS OF GLUCOLA AT 0902 Result Comment: FAST ING 80 Col: 12/24/22 0804 1HR GLU 80 Col: 12/24/22 1002 2HR GLU 94 Col: 12/24/22 1102 3HR GLU 95 Col: 12/24/22 1204 NON-GESTATIONAL GESTATIONAL FASTING 70-100 < 92 1 HOUR < 200 < 180 2 HOUR < 140 < 153 3 HOUR NOT ESTABLISHED < 140 PERFORMED BY: [facility] [address] [place] [address] PATHOLOGIST TEST DEVELOPER SHELBI CHILEL M.D. Performed By: #### G TT3 #### [facility] [address] Lupus Anticoagulanton 2022 Dilute Gregory Viper Negative Normal [facility] Comment on above: Performed By: #### P ROSAC, LUPPRO, HOCYS, PROCAC, AT3A #### [facility] [address] [place] [address] Molecular Biology Director: Nile Cesar MD #### AF5MUT, AMTHFR #### [facility] [address] [place] [address] Molecular Biology Director: Thang Hull MD #### AAFPM #### [address] [address] Molecular Biology Director: Nile Cesar MD [address] [id number] Molecular Biology Director: Thang Hull MD Protein S Activityon 023 Protein S Activity 76 % Normal 59-130 [facility] Comment on above: Result Comment: Patients on warfarin will have decreased functional protein C/S values. Warfarin therapy should be discontinued for two weeks for accurate measurement of functional protein C/S levels. Artifactually elevated levels of functional protein C/S may be seen in patients receiving heparin,rivaroxaban,apixaban,edozaban,and dabiqatran. Decreased functionality may be seen in patients with abnormally elevated levels of Factor VIII. Performed By: #### P ROSAC, LUPPRO, HOCYS, PROCAC, AT3A #### [address] [address] Molecular Biology Director: Nile Cesar MD #### AF5MUT, AMTHFR #### [facility] [address] [place] [address] Molecular Biology Director: Thang Hull MD #### AAFPM #### [address] [address] Molecular Biology Director: Nile Cesar MD [facility] [address] [place] [address] Molecular Biology Director: Thang Hull MD Antithrombin III [place] 11-02 Antithrombin III Act 94 % Normal 83-122 [facility] Comment on above: Result Comment: Patients receiving Hirudin may have a falsely decreased Antitrombin III Activity. Performed By: #### P ROSAC, LUPPRO, HOCYS, PROCAC, AT3A #### [facility] [address] [place] [address] Molecular Biology Director: Nile Cesar MD #### AF5MUT, AMTHFR #### [facility] [address] [place] [address] Molecular Biology Director: Thang Hull MD #### AAFPM #### [facility] [address] [place] [address] Molecular Biology Director: Nile Cesar MD [facility] [address] [place] [address] Molecular Biology Director: Thang Hull MD Protein C Activityon 023 Protein C Activity >150 Normal >80 [facility] Comment on above: Result Comment: Patients on warfarin will have decreased functional protein C/S values. Warfarin therapy should be discontinued for two weeks for accurate measurement of functional protein C/S levels. Artifactually elevated levels of functional protein C/S may be seen in patients receiving heparin,rivaroxaban,apixaban,edozaban,and dabiqatran. Decreased functionality may be seen in patients with abnormally elevated levels of Factor VIII. Performed By: #### P ROSAC, LUPPRO, HOCYS, PROCAC, AT3A #### [facility] [address] [place] [address] Molecular Biology Director: Nile Cesar MD #### AF5MUT, AMTHFR #### [facility] [address] [place] [address] Molecular Biology Director: Thang Hull MD #### AAFPM #### [facility] [place] [address] Molecular Biology Director: Nile Cesar MD [facility] [address] [place] [address] Molecular Biology Director: Thang Hull MD Factor V Mutationon 11-02-19 23 F 5 SPECIMEN Whole Blood Normal [facility] Comment on above: Performed By: #### P ROSAC, LUPPRO, HOCYS, PROCAC, AT3A #### [facility] [address] [place] [address] Molecular Biology Director: Nile Cesar MD #### AF5MUT, AMTHFR #### [facility] [address] [place] [address] Molecular Biology Director: Thang Hull MD #### AAFPM #### [address] [address] Molecular Biology Director: Nile Cesar MD [facility] [address] [place] [address] Molecular Biology Director: Thang Hull MD FACTOR 5 MUTATION Negative Normal [facility] Comment on above: Result Comment: (NOT E) Indication for testing: Assess genetic risk for thrombosis. NEGATIVE: The factor V Leiden variant, c.1601G>A; [id number], was not detected. This does not exclude a genetic cause for thrombophilia. If this individual has had a previous venous thromboembolism, this negative result is unlikely to significantly reduce the risk for recurrence; thus, future clinical management to reduce recurrence should not be altered. This result has been reviewed and approved by Nicolás Leblanc, Ph.D. BACKGROUND INFORMATION: Factor V Leiden (F5) R506Q Mutation CHARACTERISTICS: Venous thromboembolism (VTE) is multifactorial caused by a combination of genetic and environmental factors. The Factor V Leiden (FVL) variant is the most common cause of inherited VTEs, accounting for over 90 percent of activated protein C (APC) resistance. Because the FVL variant eliminates the APC cleavage site, factor V is inactivated slower, thus persisting longer in blood circulation, leading to more thrombin production. Other genetic risk factors for VTE include, male sex and variants in antithrombin, protein C, protein S, or factor XIII. Non-genetic risk factors include, age, smoking, prolonged immobilization, malignant neoplasms, surgery, , oral contraceptives, estrogen replacement therapy, tamoxifen and raloxifene therapy. INCIDENCE OF FACTOR V LEIDEN VARIANT: Approximately 5 percent of Caucasians, 2 percent of Hispanics, 1 percent of Americans and 0.5 percent of Asians are heterozygous; homozygosity occurs in 1 in 1500 Caucasians. INHERITANCE: Semi-dominant; both heterozygotes and homozygotes are at increased risk for VTE. PENETRANCE: Lifetime risk of VTE is 10 percent for heterozygotes and 80 percent of homozygotes. 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 Legacy nomenclature: R506Q (1691G>A) CLINICAL SENSITIVITY: 20-50 percent of individuals with an isolated VTE have the FVL variant. METHODOLOGY: Polymerase chain reaction and fluorescence monitoring. ANALYTICAL SENSITIVITY AND SPECIFICITY: 99 percent. LIMITATIONS: Diagnostic errors can occur due to rare sequence variations. F5 gene mutations, other than p.[id number], will not be detected. This test was developed and its performance characteristics determined by [facility]. It has not been cleared or approved by the [place] Food and Drug Administration. This test was performed in a CLIA certified laboratory and is intended for clinical purposes. Counseling and informed consent are recommended for genetic testing. Consent forms are available online. Performed by [facility], [address] [place] [address] [id number] [email or web address], Mike Stratton MD, PHD, Lab. Director Performed By: #### P ROSAC, LUPPRO, HOCYS, PROCAC, AT3A #### [facility] [address] [place] [address] Molecular Biology Director: Nile Cesar MD #### AF5MUT, AMTHFR #### [facility] [address] [place] [address] Molecular Biology Director: Thang Hull MD #### AAFPM #### [facility] [address] [place] [address] Molecular Biology Director: Nile Cesar MD [facility] [address] [place] [address] Molecular Biology Director: Thang Hull MD AFP, Maternalon 10-29-2022 Determined by Ultrasound [facility] Comment on above: Performed By: #### P ROSAC, LUPPRO, HOCYS, PROCAC, AT3A #### [facility] [address] [place] [address] Molecular Biology Director: Nile Cesar MD #### AF5MUT, AMTHFR #### [facility] [address] [place] [address] Molecular Biology Director: Thang Hull MD #### AAFPM #### [address] [address] Molecular Biology Director: Nile Cesar MD [facility] [address] [place] [address] Molecular Biology Director: Thang Hull MD Due Date SEE NOTE [facility] Comment on above: Result Comment: Resu lts for Estimated Due Date: 03 24 23 Performed By: #### P ROSAC, LUPPRO, HOCYS, PROCAC, AT3A #### [facility] [address] [place] [address] Molecular Biology Director: Nile Cesar MD #### AF5MUT, AMTHFR #### [facility] [address] [place] [address] Molecular Biology Director: Thang Hull MD #### AAFPM #### [address] [address] Molecular Biology Director: Nile Cesar MD [facility] [address] [place] [address] Molecular Biology Director: Thang Hull MD Family History No Normal [facility] Comment on above: Performed By: #### P ROSAC, LUPPRO, HOCYS, PROCAC, AT3A #### [facility] [address] [place] [address] Molecular Biology Director: Nile Cesar MD #### AF5MUT, AMTHFR #### [facility] [address] [place] [address] Molecular Biology Director: Thang Hull MD #### AAFPM #### [address] [address] Molecular Biology Director: Nile Cesar MD [facility] [address] [place] [address] Molecular Biology Director: Thang Hull MD Gestat Age (exact) 18 wks, 5 days Normal [place] Comment on above: Performed By: #### P ROSAC, LUPPRO, HOCYS, PROCAC, AT3A #### [address] [address] Molecular Biology Director: Nile Cesar MD #### AF5MUT, AMTHFR #### [facility] [address] [place] [address] Molecular Biology Director: Thang Hull MD #### AAFPM #### [address] [address] Molecular Biology Director: Nile Cesar MD [address] [address] Molecular Biology Director: Thang Hull MD Ins Req Matern Diab No Normal [facility] Comment on above: Performed By: #### P ROSAC, LUPPRO, HOCYS, PROCAC, AT3A #### [facility] [address] [place] [address] Molecular Biology Director: Nile Cesar MD #### AF5MUT, AMTHFR #### [facility] [address] [place] [address] Molecular Biology Director: Thang Hull MD #### AAFPM #### [address] [address] Molecular Biology Director: Nile Cesar MD [address] [phone] Molecular Biology Director: Thang Hull MD Interpretation Screen Neg Normal [facility] Comment on above: Result Comment: (NOT E) INTERPRETATION: SCREEN NEGATIVE for open spina bifida Neural Tube Defects (NTD) Negative Pre-Test Post-Test Cutoff Neural Tube Defects Risks 1:1030 1:509 1:250 Comments: The risk of an open neural tube defect is less than the screening cut-off. This test was developed and its performance characteristics determined by [facility]. It has not been cleared or approved by the [place] Food and Drug Administration. This test was performed in a CLIA certified laboratory and is intended for clinical purposes. Performed By: #### P ROSAC, LUPPRO, HOCYS, PROCAC, AT3A #### [address] [address] Molecular Biology Director: Nile Cesar MD #### AF5MUT, AMTHFR #### [address] [phone] Molecular Biology Director: Thang Hull MD #### AAFPM #### [address] [address] Molecular Biology Director: Nile Cesar MD [address] [phone] Molecular Biology Director: Thang Hull MD Maternal Age at Del 32.[address] [facility] Comment on above: Performed By: #### P ROSAC, LUPPRO, HOCYS, PROCAC, AT3A #### [address] [address] Molecular Biology Director: Nile Cesar MD #### AF5MUT, AMTHFR #### [facility] [address] [place] [address] [phone] Molecular Biology Director: Thang Hull MD #### AAFPM #### [facility] [address] [place] [address] Molecular Biology Director: Nile Cesar MD [facility] [address] [place] [address] Molecular Biology Director: Thang Hull MD Maternal Race Nonblack [facility] Comment on above: Performed By: #### P ROSAC, LUPPRO, HOCYS, PROCAC, AT3A #### [facility] [address] [place] [address] Molecular Biology Director: Nile Cesar MD #### AF5MUT, AMTHFR #### [facility] [address] [place] [address] Molecular Biology Director: Thang Hull MD #### AAFPM #### [address] [address] Molecular Biology Director: Nile Cesar MD [address] [phone] Molecular Biology Director: Thang Hull MD Maternal Weight 285.0 lbs. [facility] Comment on above: Performed By: #### P ROSAC, LUPPRO, HOCYS, PROCAC, AT3A #### [facility] [address] [place] [address] Molecular Biology Director: Nile Cesar MD #### AF5MUT, AMTHFR #### [facility] [address] [place] [address] Molecular Biology Director: Thang Hull MD #### AAFPM #### [address] [address] Molecular Biology Director: Nile Cesar MD [facility] [address] [place] [address] Molecular Biology Director: Thang Hull MD MoM for AFP 2.18 [facility] Comment on above: Performed By: #### P ROSAC, LUPPRO, HOCYS, PROCAC, AT3A #### [facility] [address] [place] [address] Molecular Biology Director: Nile Cesar MD #### AF5MUT, AMTHFR #### [facility] [address] [place] [address] Molecular Biology Director: Thang Hull MD #### AAFPM #### [address] [address] Molecular Biology Director: Nile Cesar MD [facility] [address] [place] [address] Molecular Biology Director: Thang Hull MD Number of Fetuses [place] Normal [facility] Comment on above: Performed By: #### P ROSAC, LUPPRO, HOCYS, PROCAC, AT3A #### [address] [address] Molecular Biology Director: Nile Cesar MD #### AF5MUT, AMTHFR #### [facility] [address] [place] [address] Molecular Biology Director: Thang Hull MD #### AAFPM #### [address] [address] Molecular Biology Director: Nile Cesar MD [facility] [address] [place] [address] Molecular Biology Director: Thang Hull MD Patient's AFP 70 ng/mL Normal [facility] Comment on above: Performed By: #### P ROSAC, LUPPRO, HOCYS, PROCAC, AT3A #### [facility] [address] [place] [address] Molecular Biology Director: Nile Cesar MD #### AF5MUT, AMTHFR #### [facility] [address] [place] [address] Molecular Biology Director: Thang Hull MD #### AAFPM #### [address] [address] Molecular Biology Director: Nile Cesar MD [address] [phone] Molecular Biology Director: Thang Hull MD Smoking Unknown [facility] Comment on above: Performed By: #### P ROSAC, LUPPRO, HOCYS, PROCAC, AT3A #### [address] [address] Molecular Biology Director: Nile Cesar MD #### AF5MUT, AMTHFR #### [address] [address] Molecular Biology Director: Thang Hull MD #### AAFPM #### [address] [address] Molecular Biology Director: Nile Cesar MD [address] [phone] Molecular Biology Director: Thang Hull MD Specimen See Note [facility] Comment on above: Result Comment: (NOT E) Initial sample Performed by [facility], [address] [place] [address] [phone] [email or web address], Mike Stratton MD, PHD, Lab. Director Performed By: #### P ROSAC, LUPPRO, HOCYS, PROCAC, AT3A #### [address] [address] Molecular Biology Director: Nile Cesar MD #### AF5MUT, AMTHFR #### [address] [address] Molecular Biology Director: Thang Hull MD #### AAFPM #### [address] [address] Molecular Biology Director: Nile Cesar MD [address] [phone] Molecular Biology Director: Thang Hull MD MTHFR Gene Mutationon 2022 MTHFR 1286 A>C Mut Heterozygous Normal [facility] Comment on above: Performed By: #### P ROSAC, LUPPRO, HOCYS, PROCAC, AT3A #### [address] [address] Molecular Biology Director: Nile Cesar MD #### AF5MUT, AMTHFR #### [facility] [address] [place] [address] Molecular Biology Director: Thang Hull MD #### AAFPM #### [address] [address] Molecular Biology Director: Nile Cesar MD [facility] [address] [place] [address] Molecular Biology Director: Thang Hull MD MTHFR 655C>T Mut Heterozygous Normal [facility] Comment on above: Performed By: #### Curt MEJIA, LUPPRO, HOCYS, PROCAC, AT3A #### [address] [address] Molecular Biology Director: Nile Cesar MD #### AF5MUT, AMTHFR #### [facility] [address] [place] [address] Molecular Biology Director: Thang Hull MD #### AAFPM #### [address] [address] Molecular Biology Director: Nile Cesar MD [facility] [address] [place] [address] Molecular Biology Director: Thang Hull MD MTHFR Interpretation See Note Normal [facility] Comment on above: Result Comment: (NOT E) Indication for testing: Determine genetic contribution to hyperhomocysteinemia. Compound Heterozygous MTHFR c.665C>T/c.1286A>C: One copy of each of the two MTHFR gene variants tested, c.665C>T (previously designated C677T) and c.1286A>C (previously designated O7439I) were detected. This genotype may be associated with a mild, but clinically insignificant, decrease in MTHFR enzyme activity. This result has been reviewed and approved by Misha Jiménez, Ph.D. Background Information: Methylenetetrahydrofolate Reductase (MTHFR) 2 Variants Characteristics: Variants in the MTHFR gene may reduce enzyme activity contributing to hyperhomocysteinemia. Although hyperhomocysteinemia was previously reported to be a risk factor for many conditions, especially venous thrombosis and cardiovascular disease, recent meta-analysis casts doubt on whether lifelong moderate homocysteine elevation has an effect on cardiovascular disease. The [employer] Practice Guidelines indicate that individuals with elevated homocysteine and two copies of the c.665C>T variant have an odds ratio of 1.27 for venous thromboembolism. Thus, they recommend MTHFR genotyping not be ordered as part of a routine evaluation for recurrent loss or thromobophilia due to questionable clinical significance. Incidence: The allele frequency of the c.665C>T variant is 0.35 in Caucasians, 0.5 in Hispanics, and 0.12 in Americans. Inheritance: Autosomal recessive; two copies of the c.665C>T variant may be a contributing factor to hyperhomocysteinemia. Variants Tested: c.665C>T(p.[id number]) and c.1286A>C(p.[id number]). (legacy names C677T and [id number], respectively). Clinical Sensitivity: Undefined; hyperhomocysteinemia is caused by genetic, physiologic and environmental factors. MTHFR variants are only one contributing factor. Methodology: Polymerase chain reaction (PCR) and fluorescence monitoring. Analytical Sensitivity and Specificity: 99 percent. Limitations: Only two MTHFR gene variants (c.665C>T and c.1286A>C) are tested. Diagnostic errors can occur due to rare sequence variations. This test was developed and its performance characteristics determined by [facility]. It has not been cleared or approved by the [place] Food and Drug Administration. This test was performed in a CLIA certified laboratory and is intended for clinical purposes. Counseling and informed consent are recommended for genetic testing. Consent forms are available online. Performed by [facility], [address] [place] [phone] [email or web address], Mike Stratton MD, PHD, Lab. Director Performed By: #### P ROSAC, LUPPRO, HOCYS, PROCAC, AT3A #### [address] [address] Molecular Biology Director: Nile Cesar MD #### AF5MUT, AMTHFR #### [facility] [address] [place] [address] Molecular Biology Director: Thang Hull MD #### AAFPM #### [address] [address] Molecular Biology Director: Nile Cesar MD [facility] [address] [place], [place] [id number] Molecular Biology Director: Thang Hull MD [facility] Whole Blood Normal [facility] Comment on above: Performed By: #### P ROSAC, LUPPRO, HOCYS, PROCAC, AT3A #### [address] [address] Molecular Biology Director: Nile Cesar MD #### AF5MUT, AMTHFR #### [facility] [address] [place] [address] Molecular Biology Director: Thang Hull MD #### AAFPM #### [address] [address] Molecular Biology Director: Nile Cesar MD [facility] [address] [place], [place] [id number] Molecular Biology Director: Thang Hull MD Lupus Anticoagulanton 2022 Anticardiolipin IgG 0.9 GPL Normal 0.0-10.0 [facility] Comment on above: Result Comment: Reference Range: <10.0 Negative 10.0-40.0 Equivocal >40.0 Positive Performed By: #### P ROSAC, LUPPRO, HOCYS, PROCAC, AT3A #### [address] [address] Molecular Biology Director: Nile Cesar MD #### AF5MUT, AMTHFR #### [facility] [address] [place] [address] [phone] Molecular Biology Director: Thang Hull MD #### AAFPM #### [address] [address] Molecular Biology Director: Nile Cesar MD [address] [address] Molecular Biology Director: Thang Hull MD Anticardiolipin IgA 1.4 APL Normal 0.0-14.0 [facility] Comment on above: Result Comment: Reference Range: <14.0 Negative 14.0-20.0 Equivocal >20.0 Positive When results are Equivocal, it is recommended to retest after 4-6 weeks. Performed By: #### P ROSAC, LUPPRO, HOCYS, PROCAC, AT3A #### [address] [address] Molecular Biology Director: Nile Cesar MD #### AF5MUT, AMTHFR #### [facility] [address] [place] [address] [phone] Molecular Biology Director: Thang Hull MD #### AAFERCHOM #### [address] [address] Molecular Biology Director: Nile Cesar MD [address] [phone] Molecular Biology Director: Thang Hull MD Anticardiolipin IgM 3.6 MPL Normal 0.0-10.0 [facility] Comment on above: Result Comment: Reference Range: <10.0 Negative 10.0-40.0 Equivocal >40.0 Positive Performed By: #### P ROSAC, LUPPRO, HOCYS, PROCAC, AT3A #### [address] [address] Molecular Biology Director: Nile Cesar MD #### AF5MUT, AMTHFR #### [facility] [address] [place] [address] Molecular Biology Director: Thang Hull MD #### AAFPM #### [facility] [address] [place] [address] Molecular Biology Director: Nile Cesar MD [facility] [address] [place] [address] Molecular Biology Director: Thang Hull MD [facility], [facility] 10-27-2022 Current Smoking INFORMATION NOT PROVIDED [facility] Comment on above: Performed By: #### P ROSAC, LUPPRO, HOCYS, PROCAC, AT3A #### [facility] [address] [place] [address] Molecular Biology Director: Nile Cesar MD #### AF5MUT, AMTHFR #### [facility] [address] [place] [address] Molecular Biology Director: Thang Hull MD #### ERIKFPM #### [address] [address] Molecular Biology Director: Nile Cesar MD [facility] [address] [place] [address] Molecular Biology Director: Thang Hull MD [facility] Comment on above: Performed By: #### P ROSAC, LUPPRO, HOCYS, PROCAC, AT3A #### [facility] [address] [place] [address] Molecular Biology Director: Nile Cesar MD #### AF5MUT, AMTHFR #### [facility] [address] [place] [address] Molecular Biology Director: Thang Hull MD #### AAFPM #### [facility] [address] [place] [address] Molecular Biology Director: Nile Cesar MD [facility] [address] [place] [address] Molecular Biology Director: Thang Hull MD Diabetic NO [facility] Comment on above: Performed By: #### P ROSAC, LUPPRO, HOCYS, PROCAC, AT3A #### [facility] [address] [place] [address] Molecular Biology Director: Nile Cesar MD #### AF5MUT, AMTHFR #### [facility] [address] [place] [address] Molecular Biology Director: Thang Hull MD #### AAFPM #### [facility] [address] [place] [address] Molecular Biology Director: Nile Cesar MD [facility] [address] [place] [address] [phone] Molecular Biology Director: Thang Hull MD Donor Egg INFORMATION NOT PROVIDED [facility] Comment on above: Performed By: #### P ROSAC, LUPPRO, HOCYS, PROCAC, AT3A #### [facility] [address] [place] [address] Molecular Biology Director: Nile Cesar MD #### AF5MUT, AMTHFR #### [facility] [address] [place], [place] [phone] Molecular Biology Director: Thang Hull MD #### AAFPM #### [address] [address] Molecular Biology Director: Nile Cesar MD [facility] [address] [place] [address] Molecular Biology Director: Thang Hull MD Estimated Due Date 03/24/2023 [facility] Comment on above: Performed By: #### P ROSAC, LUPPRO, HOCYS, PROCAC, AT3A #### [facility] [address] [place] [address] Molecular Biology Director: Nile Cesar MD #### AF5MUT, AMTHFR #### [facility] [address] [place] [address] Molecular Biology Director: Thang Hull MD #### AAFPM #### [facility] [address] [place] [address] Molecular Biology Director: Nile Cesar MD [facility] [address] [place] [address] Molecular Biology Director: Thang Hull MD Family History NO Normal [facility] Comment on above: Performed By: #### P ROSAC, LUPPRO, HOCYS, PROCAC, AT3A #### [facility] [address] [place] [address] Molecular Biology Director: Nile Cesar MD #### AF5MUT, AMTHFR #### [facility] [address] [place] [address] Molecular Biology Director: Thang Hull MD #### AAFPM #### [facility] [address] [place] [address] Molecular Biology Director: Nile Cesar MD [facility] [address] [place] [address] Molecular Biology Director: Thang Hull MD In Vitro Fertalizat INFORMATION NOT PROVIDED Normal [facility] Comment on above: Performed By: #### P ROSAC, LUPPRO, HOCYS, PROCAC, AT3A #### [facility] [address] [place] [address] Molecular Biology Director: Nile Cesar MD #### AF5MUT, AMTHFR #### [facility] [address] [place] [address] Molecular Biology Director: Thang Hull MD #### AAFPM #### [facility] [address] [place] [address] Molecular Biology Director: Nile Cesar MD [facility] [address] [place] [address] Molecular Biology Director: Thang Hull MD Maternal date [address] [facility] Comment on above: Performed By: #### P ROSAC, LUPPRO, HOCYS, PROCAC, AT3A #### [facility] [address] [place] [address] Molecular Biology Director: Nile Cesar MD #### AF5MUT, AMTHFR #### [facility] [address] [place] [address] Molecular Biology Director: Thang Hull MD #### AAFPM #### [facility] [address] [place] [address] Molecular Biology Director: Nile Cesar MD [facility] [address] [place], [place] [id number] Molecular Biology Director: Thang Hull MD Maternal Weight [address] [facility] Comment on above: Performed By: #### P ROSAC, LUPPRO, HOCYS, PROCAC, AT3A #### [facility] [address] [place] [address] Molecular Biology Director: Nile Cesar MD #### AF5MUT, AMTHFR #### [facility] [address] [place], [place] [id number] Molecular Biology Director: Thang Hull MD #### AAFPM #### [address] [address] Molecular Biology Director: Nile Cesar MD [facility] [address] [place] [address] Molecular Biology Director: Thang Hull MD Monochorionic Twins INFORMATION NOT PROVIDED Normal [facility] Comment on above: Performed By: #### P ROSAC, LUPPRO, HOCYS, PROCAC, AT3A #### [facility] [address] [place] [address] Molecular Biology Director: Nile Cesar MD #### AF5MUT, AMTHFR #### [facility] [address] [place] [address] Molecular Biology Director: Thang Hull MD #### AAFPM #### [facility] [address] [place] [address] Molecular Biology Director: Nile Cesar MD [facility] [address] [place] [address] Molecular Biology Director: Thang Hull MD Patient Weight Units LBS [facility] Comment on above: Performed By: #### P ROSAC, LUPPRO, HOCYS, PROCAC, AT3A #### [facility] [address] [place] [address] Molecular Biology Director: Nile Cesar MD #### AF5MUT, AMTHFR #### [facility] [address] [place] [address] Molecular Biology Director: Thang Hull MD #### AAFPM #### [facility] [address] [place] [address] Molecular Biology Director: Nile Cesar MD [facility] [address] [place] [address] Molecular Biology Director: Thang Hull MD Race (Maternal) WHITE [facility] Comment on above: Performed By: #### P ROSAC, LUPPRO, HOCYS, PROCAC, AT3A #### [facility] [address] [place] [address] Molecular Biology Director: Nile Cesar MD #### AF5MUT, AMTHFR #### [facility] [address] [place] [address] Molecular Biology Director: Thang Hull MD #### AAFPM #### [facility] [address] [place] [address] Molecular Biology Director: Nile Cesar MD [facility] [address] [place] [address] Molecular Biology Director: Thang Hull MD Repeat Specimen NO Normal [facility] Comment on above: Performed By: #### P ROSAC, LUPPRO, HOCYS, PROCAC, AT3A #### [facility] [address] [place] [address] Molecular Biology Director: Nile Cesar MD #### AF5MUT, AMTHFR #### [facility] [address] [place] [address] Molecular Biology Director: Thang Hull MD #### AAFPM #### [facility] [address] [place] [address] Molecular Biology Director: Nile Cesar MD [facility] [address] [place], [place] [id number] Molecular Biology Director: Thang Hull MD Valproic/Carbamaze p INFORMATION NOT PROVIDED Normal [facility] Comment on above: Performed By: #### P ROSAC, LUPPRO, HOCYS, PROCAC, AT3A #### [facility] [address] [place] [address] Molecular Biology Director: Nile Cesar MD #### AF5MUT, AMTHFR #### [facility] [address] [place], [place] [id number] Molecular Biology Director: Thang Hull MD #### AAFPM #### [address] [address] Molecular Biology Director: Nile Cesar MD [facility] [address] [place] [address] Molecular Biology Director: Thang Hull MD Homocysteineon 10-26-2022 Homocysteine 6.7 umol/L Normal <15.0 [facility] Comment on above: Performed By: #### P ROSAC, LUPPRO, HOCYS, PROCAC, AT3A #### [facility] [address] [place] [address] Molecular Biology Director: Nile Cesar MD #### AF5MUT, AMTHFR #### [facility] [address] [place] [address] Molecular Biology Director: Thang Hull MD #### AAFPM #### [address] [address] Molecular Biology Director: Nile Cesar MD [facility] [address] [place] [address] Molecular Biology Director: Thang Hull MD Homocysteine 6.7 umol/L NINF - 15.0 umol/L [facility] Lupus Anticoagulanton 2022 aPTT Coag (Bld) [Time] 25.8 s Normal 23.0-36.5 [facility] Comment on above: Performed By: #### P ROSAC, LUPPRO, HOCYS, PROCAC, AT3A #### [address] [phone] Molecular Biology Director: Nile Cesar MD #### [place], AMTHFR #### [facility] [address] [place] [address] Molecular Biology Director: Thang Hull MD #### AAFPM #### [address] [address] Molecular Biology Director: Nile Cesar MD [address] [phone] Molecular Biology Director: Thang Hull MD INR Coag (PPP) [Relative time] 0.9 {INR} Normal [facility] Comment on above: Result Comment: Therapeutic Range: Moderate Anticoagulant Intensity: INR = 2.0-3.0 High Anticoagulant Intensity: INR = 2.5-3.5 Performed By: #### P ROSAC, LUPPRO, HOCYS, PROCAC, AT3A #### [facility] [address] [place] [address] Molecular Biology Director: Nile Cesar MD #### AF5MUT, AMTHFR #### [facility] [address] [place] [address] Molecular Biology Director: Thang Hull MD #### AAFPM #### [address] [address] Molecular Biology Director: Nile Cesar MD [facility] [address] [place] [address] Molecular Biology Director: Thang Hull MD PT Coag (PPP) [Time] 11.7 s Normal 11.7-14.9 [facility] Comment on above: Performed By: #### P ROSAC, LUPPRO, HOCYS, PROCAC, AT3A #### [address] [address] Molecular Biology Director: Nile Cesar MD #### AF5MUT, AMTHFR #### [address] [address] [address] Molecular Biology Director: Thang Hull MD #### AAFPM #### [address] [address] Molecular Biology Director: Nile Cesar MD [address] [address] Molecular Biology Director: MD Romel Briones Kitaldo 10-26-2022 Romel Kit Forwarded to [facility] Comment on above: Performed By: #### N ATER #### [address] [address] Molecular Biology Director: Nile Cesar MD Romel Kit Forwarded to [facility] Comment on above: Performed By: #### N ATER #### [address] [address] Molecular Biology Director: Nile Cesar MD AFP MATERNAL FOR SPINA BIFID Aon 10-08-2022 AFP MoM 1.69 Normal [facility] Comment on above: Performed By: #### C BC #### [facility] [address] [address] [address] Brenna Mann AFP Value 39.4 ng/mL Normal [facility] Comment on above: Performed By: #### C BC #### [facility] [address] [address] [address] Brenna Mann AFP, Serum for Spina Bifida Report Normal [facility] Comment on above: Performed By: #### C BC #### [facility] [address] [address] [address] Brenna Mann Comment Comment Normal [facility] Comment on above: Result Comment: Jesús Goodman, Ph.D., [facility] Director . References: Available Upon Request. . Multiples Of Median Cutoffs For AFP Elevations [place] 2.5 Black 2.8 IDD 2.0 Twins 4.5 Abbreviation Definitions IDD - Insulin Dep Diabetes OSBR - Open Spina Bifida Risk . For further inquiries contact [facility] at [phone]. . This test was developed and its performance characteristics determined by [employer]. It has not been cleared or approved by the Food and Drug Administration. Performed By: #### C BC #### [facility] [address] [address] [address] Brenna Ji Age Collection Date 15.7 weeks [facility] Comment on above: Performed By: #### C BC #### [facility] [address] [address] [address] Brenna Mann Gestat, Age Based on As provided Normal [facility] Comment on above: Result Comment: Reca lculations are not recommended when gestational dating by LMP and ultrasound are within 10 days. Performed By: #### C BC #### [facility] [address] [address] [address] Brenna Mann Insulin Dep Diabetes No Normal [facility] Comment on above: Performed By: #### C BC #### [facility] [address] [place] [address] Dr. Brenna Mann Interpretation Comment Normal [facility] Comment on above: Result Comment: Inte rpretation: Screen Negative . This result is screen negative for OSB. The AFP MoM calculated is based on the gestational age provided. MS-AFP can identify up to 80% of open neural tube defects. Closed neural tube defects and some open defects may not be detected by this test. This test does not screen for Down Syndrome or Trisomy 18. If screening for Down Syndrome or Trisomy 18 is desired, contact [facility] [employer] to discuss available options. The [employer] recommends amniocentesis be offered to women age 35 and older. Performed By: #### C BC #### [facility] [address] [place] [address] Dr. Brenna Mann [age] Normal [facility] Comment on above: Performed By: #### C BC #### [facility] [address] [place] [address] Dr. Brenna Mann Multiple Gestation No Normal [facility] Comment on above: Performed By: #### C BC #### [facility] [address] [place] [address] Dr. Brenna Mann OSBR Risk 1 [place] 1671 Normal [facility] Comment on above: Performed By: #### C BC #### [facility] [address] [place] [address] Dr. Brenna Mann PDF . [facility] Comment on above: Performed By: #### C BC #### [facility] [address] [place] [address] Dr. Brenna Mann Race Normal [facility] Comment on above: Performed By: #### C BC #### [facility] [address] [place] [address] Dr. Brenna Mann Test Results: Negative Normal [facility] Comment on above: Performed By: #### C BC #### [facility] [address] [place] [address] Dr. Brenna Mann US PREG LIMITEDon 10-06-2022 US PREG LIMITED EXAMINATION: US PREG LIMITED HISTORY: Disorder of amniotic cavity AND/OR membrane ; follow-up subchorionic hematoma COMPARISON: Ultrasound transvaginal 09/14/2022 FINDINGS: heart rate: 164 bpm Uterus: No appreciable subchorionic hematoma. GA: 15 weeks 5 days EZEKIEL 03/25/2023 IMPRESSION: 1. Single live intrauterine 15 weeks 5 days. 2. No appreciable subchorionic hematoma. Evaluation is limited by maternal body habitus. Electronically authenticated by: LINO ARROYO Date: 2022-10-06 15:09 Normal [facility] US PREG TVon 09-14-2022 US PREG TV EXAMINATION: US PREG TV HISTORY: Antepartum hemorrhage COMPARISON: No relevant comparison available. FINDINGS: Sagittal images [place] intrauterine gestation CRL: 6.78 cm, 13 weeks 1 day Heart rate: 151 bpm Area of crescent shaped hypoechogenicity adjacent to the gestational sac measuring 4.1 x 2.6 x 4.8 cm Cervix: Closed, 4.7 cm Clinical age: 12 weeks 4 days Clinical EZEKIEL: 03/25/2023 Ultrasound age: 13 weeks 1 day Ultrasound EZEKIEL: 03/21/2023 IMPRESSION: 4.1 cm subchorionic hematoma Viable [place] intrauterine gestation measuring 13 weeks 1 day Electronically authenticated by: JR RITCHIE Date: 2022-09-14 17:18 Normal [facility] HEP B SURFACE ANTIGEN SCREEN on 09-11-2022 HBsAg Screen Negative Normal Negative [facility] Comment on above: Performed By: #### H BSANS #### [facility] [address] [place] [address] Dr. Brenna Mann HEPATITIS C VIRUS AB W/ REFL EX QUANTon 09-11-2022 HCV AB Non-Reactive Normal Non Reactive [facility] Comment on above: Performed By: #### 4 [id number] #### [facility] [address] [place] [address] Dr. Brenna Mann Interpretation: Comment Normal [facility] Comment on above: Result Comment: Not infected with HCV unless early or acute infection is suspected (which may be delayed in an immunocompromised individual), or other evidence exists to indicate HCV infection. Performed By: #### 4 [id number] #### [facility] [address] [place] [address] Dr. Brenna Mann HIV 1 AND 2 WITH REFLEXon HIV Screen 4th Generation wRfx Non-Reactive Normal Non Reactive [facility] Comment on above: Result Comment: HIV Negative HIV-1/HIV-2 antibodies and HIV-1 p24 antigen were NOT detected. There is no laboratory evidence of HIV infection. Performed By: #### H IV12 #### [facility] [address] [place] [address] Dr. Brenna Mann RPR QUANTon 09-11-2022 Rapid Plasma Reagin, Quant Non-Reactive Normal NonRea<1:1 [facility] Comment on above: Result Comment: Plea se Note: This test does not meet current guidelines for screening and diagnosis of syphilis. This test is intended for following treatment response in patients being treated for syphilis infection. To screen for syphilis infection, a reflex cascade that includes both RPR and a treponema-specific assay should be utilized, such as Treponema pallidum (Syphilis) Screening Twiggs (031235) or Rapid Plasma Reagin (RPR) Test With Reflex to Quantitative RPR and Confirmatory Treponema pallidum Antibodies (869211). Performed By: #### 4 [id number] #### [facility] [address] [place] [address] Dr. Brenna Mann RUBELLA AB IGGon 09-11-2022 Rubella Antibodies, IgG 2.41 index Normal Immune >0.99 [facility] Comment on above: Result Comment: Non- immune <0.90 Equivocal 0.90 - 0.99 Immune >0.99 Performed By: #### C BC #### [facility] [address] [place] [address] Dr. Brenna Mann CBC AUTO DIFFon 09-10-2022 BASO # 0.0 103/ul Normal 0.0-0.1 [facility] Comment on above: Performed By: #### C BC #### [facility] [address] [place] [address] Dr. Brenna Mann Basophils/100 WBC (Bld) 0.3 % Normal 0.2-2.0 [facility] Comment on above: Performed By: #### C BC #### [facility] [address] [place] [address] Dr. Brenna Mann EO # 0.3 103/ul Normal 0.0-0.7 [facility] Comment on above: Performed By: #### C BC #### [facility] [address] [address] [address] Brenna Mann Eosinophils/100 WBC (Bld) 2.7 % Normal 0.9-7.0 [facility] Comment on above: Performed By: #### C BC #### [facility] [address] [place] [address] Dr. Brenna Mann Erythrocyte distribution width (RBC) [Ratio] 13.8 % Normal 11.0-15.0 [facility] Comment on above: Performed By: #### C BC #### [facility] [address] [place] [address] Dr. Brenna Mann Hematocrit (Bld) [Volume fraction] 37.4 % Normal 36.0-48.0 [facility] Comment on above: Performed By: #### C BC #### [facility] [address] [place] [address] Dr. Brenna Mann Hemoglobin (Bld) [Mass/Vol] 12.2 g/dL Normal 12.0-16.0 [facility] Comment on above: Performed By: #### C BC #### [facility] [address] [place] [address] Dr. Brenna Mann IG # 0.10 10e3/ul Critically high 0.00-0.03 [facility] Comment on above: Performed By: #### C BC #### [facility] [address] [place] [address] Dr. Brenna Mann IG % 1.1 % Critically high 0.0-0.5 [facility] Comment on above: Performed By: #### C BC #### [facility] [address] [place] [address] Dr. Brenna Mann LYMPH # 2.4 103/ul Normal 1.2-3.8 [facility] Comment on above: Performed By: #### C BC #### [facility] [address] [place] [address] Dr. Brenna Mann Lymphocytes/100 WBC (Bld) 25.3 % Normal 20.5-60.0 [facility] Comment on above: Performed By: #### C BC #### [facility] [address] [place] [address] Dr. Brenna Mann MANUAL DIFF REQ NO Normal [facility] Comment on above: Performed By: #### C BC #### [facility] [address] [place] [address] Dr. Brenna Mann MCH (RBC) [Entitic mass] 27.8 pg Normal 26.7-34.0 [facility] Comment on above: Performed By: #### C BC #### [facility] [address] [place] [address] Dr. Brenna Mann MCHC (RBC) [Mass/Vol] 32.6 g/dL Normal 29.9-35.2 [facility] Comment on above: Performed By: #### C BC #### [facility] [address] [place] [address] Dr. Brenna Mann MCV (RBC) [Entitic vol] 85.2 fL Normal 81.0-99.0 [facility] Comment on above: Performed By: #### C BC #### [facility] [address] [place] [address] Dr. Brenna Mann MONO # 0.4 103/ul Normal 0.3-0.8 [facility] Comment on above: Performed By: #### C BC #### [facility] [address] [place] [address] Dr. Brenna Mann Monocytes/100 WBC (Bld) 3.7 % Normal 1.7-12.0 [facility] Comment on above: Performed By: #### C BC #### [facility] [address] [place] [address] Dr. Brenna Mann NEUT # 6.3 103/ul Normal 1.4-6.5 [facility] Comment on above: Performed By: #### C BC #### [facility] [address] [place] [address] Dr. Brenna Mann Neutrophils/100 WBC (Bld) 66.9 % Normal 43.0-75.0 [facility] Comment on above: Performed By: #### C BC #### [facility] [address] [place] [address] Dr. Brenna Mann Platelet mean volume (Bld) [Entitic vol] 12.1 fL Normal 9.5-13.5 [facility] Comment on above: Performed By: #### C BC #### [facility] [address] [place] [address] Dr. Brenna Mann PLT 172 103/ul Normal 150-450 [facility] Comment on above: Performed By: #### C BC #### [facility] [address] [place] [address] Dr. Brenna Mann RBC 4.39 106/ul Normal 4.20-5.40 [facility] Comment on above: Performed By: #### C BC #### [facility] [address] [place] [address] Dr. Brenna Mann WBC 9.3 103/ul Normal 4.0-11.0 [facility] Comment on above: Performed By: #### C BC #### [facility] [address] [place] [address] Dr. Brenna Mann CULTURE URINEon 09-10-2022 CULTURE URINE Culture Observations : NO GROWTH. Normal [facility] Comment on above: Performed By: #### C BC #### [facility] [address] [place] [address] Dr. Brenna Mann GLYCOHEMOGLOBIN A1Con 2022 ADA RECOMMENDATION SEE BELOW Normal [facility] Comment on above: Result Comment: ADA RECOMMENDED LIMIT 4.0 - 6.0 ADA THERAPEUTIC TARGET < 7.0 ACTION SUGGESTED > 7.0 Performed By: #### [id number] #### [facility] [address] [place] [address] Dr. Brenna Mann Glucose [Mass/Vol] 100 mg/dL Normal [facility] Comment on above: Performed By: #### 4 [id number] #### [facility] [address] [place] [address] Dr. Brenna Mann HbA1c (Bld) [Mass fraction] 5.1 % Normal 4.5-6.2 [facility] Comment on above: Performed By: #### 4 [id number] #### [facility] [address] [place] [address] Dr. Brenna Mann ROMEL BOX TEST PT SEND OUTo n 09-10-2022 SENT TO REF LAB 09/10/2022 Normal [facility] Comment on above: Performed By: #### 4 [id number] #### [facility] [address] [place] [address] Dr. Brenna Mann TSHon 09-10-2022 TSH 0.568 uIU/mL Normal 0.358-3.740 [facility] Comment on above: Performed By: #### T SH #### [facility] [address] [place] [address] Dr. Brenna Mann TYPE AND SCREENon 09-10-2022 TYPE AND SCREEN Negative Normal [facility] Comment on above: Performed By: #### C BC #### [facility] [address] [place] [address] Dr. Brenna Mann US PREG TVon 08-29-2022 US PREG TV EXAMINATION: US PREG TV HISTORY: Irregular periods COMPARISON: 08/21/2022 FINDINGS: [place] intrauterine gestation Gestational sac: 4.59 cm, 10 weeks 1 day CRL: 3.76 cm, 10 weeks 5 days Yolk sac: 4.8 mm Heart rate: 169 bpm Cervix: Closed, 4.0 cm The uterus is anteverted. Identified adjacent to the gestational sac is an area of hypoechogenicity measuring 4.1 x 2.9 x 1.3 cm The ovaries are not visualized Clinical age: 10 weeks 2 days Clinical EZEKIEL: 03/21/2023 Ultrasound age: 10 weeks 3 days Ultrasound EZEKIEL: 03/24/2023 IMPRESSION: 4.1 cm subchorionic hematoma Viable [place] intrauterine gestation measuring 10 weeks 3 days Electronically authenticated by: JR RITCHIE Date: 2022-08-29 16:12 Normal [facility] CBC AUTO DIFFon 08-21-2022 BASO # 0.0 103/ul Normal 0.0-0.1 [facility] Comment on above: Performed By: #### 4 [id number] #### [facility] [address] [place] [address] Dr. Brenna Mann Basophils/100 WBC (Bld) 0.3 % Normal 0.2-2.0 [facility] Comment on above: Performed By: #### 4 [id number] #### [facility] [address] [place] [address] Dr. Brenna Mann EO # 0.1 103/ul Normal 0.0-0.7 [facility] Comment on above: Performed By: #### 4 [id number] #### [facility] [address] [place] [address] Dr. Brenna Mann Eosinophils/100 WBC (Bld) 1.2 % Normal 0.9-7.0 [facility] Comment on above: Performed By: #### 4 [id number] #### [facility] [address] [place] [address] Dr. Brenna Mann Erythrocyte distribution width (RBC) [Ratio] 14.3 % Normal 11.0-15.0 [facility] Comment on above: Performed By: #### 4 [id number] #### [facility] [address] [place] [address] Dr. Brenna Mann Hematocrit (Bld) [Volume fraction] 40.4 % Normal 36.0-48.0 [facility] Comment on above: Performed By: #### 4 [id number] #### [facility] [address] [place] [address] Dr. Brenna Mann Hemoglobin (Bld) [Mass/Vol] 12.9 g/dL Normal 12.0-16.0 [facility] Comment on above: Performed By: #### 4 [id number] #### [facility] [address] [place] [address] Dr. Brenna Mann IG # 0.08 10e3/ul Critically high 0.00-0.03 [facility] Comment on above: Performed By: #### 4 [id number] #### [facility] [address] [place] [address] Dr. Brenna Mann IG % 0.8 % Critically high 0.0-0.5 [facility] Comment on above: Performed By: #### 4 [id number] #### [facility] [address] [place] [address] Dr. Brenna Mann LYMPH # 2.8 103/ul Normal 1.2-3.8 [facility] Comment on above: Performed By: #### 4 [id number] #### [facility] [address] [place] [address] Dr. Brenna Mann Lymphocytes/100 WBC (Bld) 28.8 % Normal 20.5-60.0 [facility] Comment on above: Performed By: #### 4 [id number] #### [facility] [address] [place] [address] Dr. Brenna Mann MANUAL DIFF REQ NO Normal [facility] Comment on above: Performed By: #### 4 [id number] #### [facility] [address] [place] [address] Dr. Brenna Mann MCH (RBC) [Entitic mass] 28.4 pg Normal 26.7-34.0 [facility] Comment on above: Performed By: #### 4 [id number] #### [facility] [address] [place] [address] Dr. Brenna Mann MCHC (RBC) [Mass/Vol] 31.9 g/dL Normal 29.9-35.2 [facility] Comment on above: Performed By: #### 4 [id number] #### [facility] [address] [place] [address] Dr. Brenna Mann MCV (RBC) [Entitic vol] 88.8 fL Normal 81.0-99.0 [facility] Comment on above: Performed By: #### 4 [id number] #### [facility] [address] [place] [address] Dr. Brenna Mann MONO # 0.7 103/ul Normal 0.3-0.8 [facility] Comment on above: Performed By: #### 4 [id number] #### [facility] [address] [place] [address] Dr. Brenna Mann Monocytes/100 WBC (Bld) 6.9 % Normal 1.7-12.0 [facility] Comment on above: Performed By: #### 4 [id number] #### [facility] [address] [place] [address] Dr. Brenna Mann NEUT # 6.1 103/ul Normal 1.4-6.5 [facility] Comment on above: Performed By: #### 4 [id number] #### [facility] [address] [place] [address] Dr. Brenna Mann Neutrophils/100 WBC (Bld) 62.0 % Normal 43.0-75.0 [facility] Comment on above: Performed By: #### 4 [id number] #### [facility] [address] [place] [address] Dr. Brenna Mann Platelet mean volume (Bld) [Entitic vol] 12.0 fL Normal 9.5-13.5 [facility] Comment on above: Performed By: #### 4 [id number] #### [facility] [address] [place] [address] Dr. Brenna Mann PLT 191 103/ul Normal 150-450 [facility] Comment on above: Performed By: #### 4 [id number] #### [facility] [address] [place] [address] Dr. Brenna Mann RBC 4.55 106/ul Normal 4.20-5.40 [facility] Comment on above: Performed By: #### 4 [id number] #### [facility] [address] [place] [address] Dr. Brenna Mann WBC 9.8 103/ul Normal 4.0-11.0 [facility] Comment on above: Performed By: #### 4 [id number] #### [facility] [address] [place] [address] Dr. Brenna Mann PREG QUANT HCGon 08-21-2022 HCG QUANT 50816 mIU/mL Normal [facility] Comment on above: Performed By: #### P REGQNT #### [facility] [address] [place] [address] Dr. Brenna Mann HCG RANGE SEE BELOW Normal [facility] Comment on above: Result Comment: 5-50 0.2-1 WEEK 50-500 1-2 WEEKS 100-5,000 2-3 WEEKS 500-10,000 3-4 WEEKS 1,000-50,000 4-5 WEEKS 10,000-100,000 5-6 WEEKS 15,000-200,000 6-8 WEEKS 10,000-100,000 2-3 MONTHS Performed By: #### P REGQNT #### [facility] [address] [place] [address] Dr. Brenna Mann PROF 14(COMP METB)on 023 Albumin [Mass/Vol] 2.8 g/dL Critically low 3.4-5.0 Th [facility] Comment on above: Performed By: #### 4 [id number] #### [facility] [address] [place] [address] Dr. Brenna Mann Albumin/Globulin [Mass ratio] 0.6 {ratio} Normal [facility] Comment on above: Performed By: #### 4 [id number] #### [facility] [address] [place] [address] Dr. Brenna Mann ALP [Catalytic activity/Vol] 53 U/L Normal 46-116 [facility] Comment on above: Performed By: #### 4 [id number] #### [facility] [address] [place] [address] Dr. Brenna Mann ALT [Catalytic activity/Vol] 17 U/L Normal 14-59 [facility] Comment on above: Performed By: #### 4 [id number] #### [facility] [address] [place] [address] Dr. Brenna Mann Anion gap [Moles/Vol] 14.2 mmol/L Normal [facility] Comment on above: Performed By: #### 4 [id number] #### [facility] [address] [place] [address] Dr. Brenna Mann AST [Catalytic activity/Vol] 21 U/L Normal 15-37 [facility] Comment on above: Performed By: #### 4 [id number] #### [facility] [address] [place] [address] Dr. Brenna Mann Bilirubin [Mass/Vol] 0.1 mg/dL Critically low 0.2-1.0 [facility] Comment on above: Performed By: #### 4 [id number] #### [facility] [address] [place] [address] Dr. Brenna Mann Calcium [Mass/Vol] 8.5 mg/dL Normal 8.5-10.1 [facility] Comment on above: Performed By: #### 4 [id number] #### [facility] [address] [place] [address] Dr. Brenna Mann Chloride [Moles/Vol] 99 mmol/L Normal 98-107 [facility] Comment on above: Performed By: #### 4 [id number] #### [facility] [address] [place] [address] Dr. Brenna Mann CO2 [Moles/Vol] 26.2 mmol/L Normal 21.0-32.[address] [facility] Comment on above: Performed By: #### 4 [id number] #### [facility] [address] [place] [address] Dr. Brenna Mann Creatinine [Mass/Vol] 0.38 mg/dL Critically low 0.55-1.02 The [facility] Comment on above: Performed By: #### 4 [id number] #### [facility] [address] [place] [address] Dr. Brenna Mann EGFR-AF UZBEK >60 Normal >=[address] [facility] Comment on above: Performed By: #### 4 [id number] #### [facility] [address] [place] [address] Dr. Brenna Mann EGFR-NON AF UZBEK >60 Normal >=60 The [facility] Comment on above: Performed By: #### 4 [id number] #### [facility] [address] [place] [address] Dr. Brenna Mann Globulin (S) [Mass/Vol] 4.5 g/dL Normal The [facility] Comment on above: Performed By: #### 4 [id number] #### [facility] [address] [place] [address] Dr. Brenna Mann Glucose [Mass/Vol] 106 mg/dL Normal 74-106 The [facility] Comment on above: Performed By: #### 4 [id number] #### [facility] [address] [place] [address] Dr. Brenna Mann Potassium [Moles/Vol] 3.4 mmol/L Critically low 3.5-5.1 [facility] Comment on above: Performed By: #### 4 [id number] #### [facility] [address] [address] [address] Brenna Mann Protein [Mass/Vol] 7.3 g/dL Normal 6.4-8.2 The [facility] Comment on above: Performed By: #### 4 [id number] #### [facility] [address] [address] [address] Brenna Mann Sodium [Moles/Vol] 136 mmol/L Normal 136-145 The [facility] Comment on above: Performed By: #### 4 [id number] #### [facility] [address] [place] [address] Dr. Brenna Mann Urea nitrogen [Mass/Vol] 7.0 mg/dL Normal 7.0-18.0 [facility] Comment on above: Performed By: #### 4 [id number] #### [facility] [address] [place] [address] Dr. Brenna Mann Urea nitrogen/Creatinin e [Mass ratio] 18.4 mg/mg Normal [facility] Comment on above: Performed By: #### 4 [id number] #### [facility] [address] [place] [address] Dr. Brenna Mann US PREG TVon 08-11-2022 US PREG TV EXAMINATION: US PREG TV HISTORY: Missed period COMPARISON: No relevant comparison available. FINDINGS: GESTATIONAL SAC: Present and normal appearing. YOLK SAC: Present and normal appearing. POLE: Present and normal appearing. CARDIAC: Present. UTERUS: Normal size and appearance. OVARIES: Right: Not seen. Left: Not seen. CERVIX: 4.0 cm in length and closed. CUL-DE-SAC: Normal. OTHER: None. AGE BY LMP: 7 weeks 5 days EZEKIEL BY LMP: 03/25/2023 AGE BY US CRL: 7 weeks 6 days EZEKIEL BY US CRL: 03/24/2023 IMPRESSION: 1. Single live intrauterine . Electronically authenticated by: LINO ARROYO Date: 2022-08-11 13:32 Normal [facility] PREG QUANT HCGon 07-18-2022 HCG QUANT 230 mIU/mL Normal [facility] Comment on above: Performed By: #### P REGQNT #### [facility] [address] [place] [address] Dr. Brenna Mann HCG RANGE SEE BELOW Normal [facility] Comment on above: Result Comment: 5-50 0.2-1 WEEK 50-500 1-2 WEEKS 100-5,000 2-3 WEEKS 500-10,000 3-4 WEEKS 1,000-50,000 4-5 WEEKS 10,000-100,000 5-6 WEEKS 15,000-200,000 6-8 WEEKS 10,000-100,000 2-3 MONTHS Performed By: #### P REGQNT #### [facility] [address] [place] [address] Dr. Brenna Mann PREG QUANT HCGon 07-15-2022 HCG QUANT 52 mIU/mL [facility] Comment on above: Performed By: #### P REGQNT #### [facility] [address] [place] [address] Dr. Brenna Mann HCG RANGE SEE BELOW [facility] Comment on above: Result Comment: 5-50 0.2-1 WEEK 50-500 1-2 WEEKS 100-5,000 2-3 WEEKS 500-10,000 3-4 WEEKS 1,000-50,000 4-5 WEEKS 10,000-100,000 5-6 WEEKS 15,000-200,000 6-8 WEEKS 10,000-100,000 2-3 MONTHS Performed By: #### P REGQNT #### [facility] [address] [place] [address] Dr. Brenna Mann PAP ACOG PANEL 2: 30 to 65on 07-14-2022 . . Normal [facility] Comment on above: Result Comment: Perf ormed at: WB Performed By: #### 4 [id number] #### [facility] [address] [place] [address] Dr. Brenna Mann Age Gdln ACOG Testing 30-65 [facility] Comment on above: Performed By: #### 4 [id number] #### [facility] [address] [place] [address] Dr. Brenna Mann DIAGNOSIS: Comment Normal [facility] Comment on above: Result Comment: NEGA TIVE FOR INTRAEPITHELIAL LESION OR MALIGNANCY. Performed at: WB Performed By: #### 4 [id number] #### [facility] [address] [place] [address] Dr. Brenna Mann HPV Aptima Negative Normal Negative [facility] Comment on above: Result Comment: This nucleic acid amplification test detects fourteen high-risk HPV types (16,18,31,33,35,39,45,51,52,56,58,59,66,68) without differentiation. Performed at: =G Performed By: #### 4 [id number] #### [facility] [address] [place] [address] Dr. Brenna Mann HPV Genotype Reflex Comment Normal [facility] Comment on above: Result Comment: Crit eria not met, HPV Genotype not performed. Performed at: WB Performed By: #### 4 [id number] #### [facility] [address] [place] [address] Dr. Brenna Mann Methodology: Comment Normal [facility] Comment on above: Result Comment: This liquid based ThinPrep(R) pap test was screened with the use of an image guided system. Performed at: WB Performed By: #### 4 [id number] #### [facility] [address] [place] [address] Dr. Brenna Mann Note: Comment Normal [facility] Comment on above: Result Comment: The Pap smear is a screening test designed to aid in the detection of premalignant and malignant conditions of the uterine cervix. It is not a diagnostic procedure and should not be used as the sole means of detecting cervical cancer. Both false-positive and false-negative reports do occur. . Performed at: WB Performed By: #### 4 [id number] #### [facility] [address] [place] [address] Dr. Brenna Mann Performed by: Comment Normal [facility] Comment on above: Result Comment: Iliana Castillo, Recooperer (ASCP) Performed at: WB Performed By: #### 4 [id number] #### [facility] [address] [place] [address] Dr. Brenna Mann Specimen adequacy: Comment Normal [facility] Comment on above: Result Comment: Sati sfactory for evaluation. No endocervical component is identified. Performed at: WB Performed By: #### 4 [id number] #### [facility] [address] [place] [address] Dr. Brenna Mann QUANTIFERON TB GOLD PLUSon 0 03-01-2022 QuantiFERON Criteria Comment Normal [facility] Comment on above: Result Comment: Keshav tiFERON-TB Gold Plus is a qualitative indirect test for M tuberculosis infection (including disease) and is intended for use in conjunction with risk assessment, radiography, and other medical and diagnostic evaluations. The QuantiFERON-TB Gold Plus result is determined by subtracting the Nil value from either TB antigen (Ag) value. The Mitogen tube serves as a control for the test. Performed By: #### 4 [id number] #### [facility] [address] [place] [address] Dr. Brenna Mann QuantiFERON Mitogen Value >10.00 [facility] Comment on above: Performed By: #### 4 [id number] #### [facility] [address] [place] [address] Dr. Brenna Mann QuantiFERON Nil Value 0.02 IU/mL [facility] Comment on above: Performed By: #### 4 [id number] #### [facility] [address] [place] [address] Dr. Brenna Mann QuantiFERON TB1 Ag Value 0.17 IU/mL [facility] Comment on above: Performed By: #### 4 [id number] #### [facility] [address] [place] [address] Dr. Brenna Mann QuantiFERON TB2 Ag Value 0.19 IU/mL [facility] Comment on above: Performed By: #### 4 [id number] #### [facility] [address] [place] [address] Dr. Brenna Mann QuantiFERON Incubation Incubation performed. Normal [facility] Comment on above: Performed By: #### 4 [id number] #### [facility] [address] [place] [address] Dr. Brenna Mann QuantiFERON-TB Gold Plus Negative Normal Negative [facility] Comment on above: Result Comment: No r esponse to M tuberculosis antigens detected. Infection with M tuberculosis is unlikely, but high risk individuals should be considered for additional testing (ATS/IDSA/CDC Clinical Practice Guidelines, 2017). The reference range is an Antigen minus Nil result of <0.35 IU/mL. Chemiluminescence immunoassay methodology Performed By: #### 4 [id number] #### [facility] [address] [place] [address] Dr. Brenna Mann HEPATITIS B SURFACE ANTIBODY , QUANTon 02-27-2022 Hepatitis B Surf AB Quant <3.1 Critically low Immunity>9.9 The [facility] Comment on above: Result Comment: Stat us of Immunity Anti-HBs Level Inconsistent with Immunity 0.0 - 9.9 Consistent with Immunity >9.9 Performed By: #### H EPBSRF #### [facility] [address] [place] [address] Dr. Brenna Mann MMR IMMUNITYon 02-27-2022 Mumps Abs, IgG <9.0 Critically low Immune >10.9 The [facility] Comment on above: Result Comment: Nega tive <9.0 Equivocal 9.0 - 10.9 Positive >10.9 A positive result generally indicates past exposure to Mumps virus or previous vaccination. Performed By: #### C BC #### [facility] [address] [place] [address] Dr. Brenna Mann Rubella Antibodies, IgG 1.29 index Normal Immune >0.99 [facility] Comment on above: Result Comment: Non- immune <0.90 Equivocal 0.90 - 0.99 Immune >0.99 Performed By: #### C BC #### [facility] [address] [place] [address] Dr. Brenna aMnn Rubeola Ab, IgG 75.2 AU/mL Normal Immune >16.[address] [facility] Comment on above: Result Comment: Nega tive <13.5 Equivocal 13.5 - 16.4 Positive >16.4 Presence of antibodies to Rubeola is presumptive evidence of immunity except when acute infection is suspected. Performed By: #### C BC #### [facility] [address] [place] [address] Dr. Brenna Mann VARICELLA IGG ABon 2 Varicella Zoster IgG 199 index Normal Immune >165 [facility] Comment on above: Result Comment: Nega tive <135 Equivocal 135 - 165 Positive >165 A positive result generally indicates exposure to the pathogen or administration of specific immunoglobulins, but it is not indication of active infection or stage of disease. Performed By: #### V ARCEL #### [facility] [address] [address] [address] Brenna Mann Operative Reporton 2 Operative Report MR#: [id number] [facility] Pt. Name: Kavon Chao Room #: 0C Discharge Date: Birthdate: 1990 OPERATIVE REPORT DATE OF SURGERY: 02/22/2022 SURGEON: Antione Walker M.D. BOILERMAKER HELPER: Cuco Castellon M.D. PREOPERATIVE DIAGNOSIS: Retinacular cyst, left long finger. POSTOPERATIVE DIAGNOSIS: Retinacular cyst, left long finger. OPERATIVE PROCEDURE: Excision cyst, tendon sheath, left long finger. PROCEDURE IN DETAIL: Procedure performed under local anesthesia. The patient was transferred to the operating room whereby the left upper extremity was prepped and draped for the proposed procedure. A tourniquet applied to left proximal forearm was inflated to 215 mmHg, following exsanguination of the limb by application of an Esmarch bandage. 0.5% Marcaine/1% Xylocaine was infiltrated overlying the cystic mass, which was easily palpable at the level of the A1 anderson of the left long finger. An oblique incision was made along Faby's lines. Blunt dissection was then used to delineate the cystic mass emanating from the tendon sheath of the left long finger. The cyst was dissected free from the surrounding tissues and then excised with the subsheath in its entirety. Wound irrigated with normal saline solution and closed with a 4-0 Novafil, established in a simple suture fashion. A sterile dressing was applied. There were no complications. The patient was transferred to the recovery room in stable condition. Electronically Signed by: Atnione Walker M.D. 02/22/2022 01:25 P Antione Walker M.D. Date Dict: 02/22/2022/08:34 Charmaine/Antione Walker M.D. Date Trans: 02/22/2022 08:47 A/mmo [id number] Normal [facility] POC GLUCOSE LABon 02-22-2022 Glucose [Mass/Vol] 77 mg/dL Normal 70-100 [facility] Comment on above: Performed By: #### 8 [id number] #### [facility] [address] [facility] POC SARS COV2 IDon 2 SARS-CoV-2 (COVID-19) RNA AD+probe Ql (Unsp spec) Negative Normal NEGATIVE [facility] Comment on above: Result Comment: ID N OW COVID-19 assay performed on the ID NOW Instrument is a rapid molecular in vitro diagnostic test utilizing an isothermal nucleic acid amplification technology intended for the qualitative detection of nucleic acid from the SARS-CoV-2 virus in direct anterior nasal (nasal), nasopharyngeal or throat swabs from individuals who are suspected of COVID-19 by their healthcare provider within the first seven days of the onset of symptoms. Testing is limited to laboratories certified under the Clinical Laboratory Improvement Amendments of 1988 (CLIA), 42 U.S.C. ???263a,that meet the requirements to perform high, moderate, or waived complexity tests. The ID NOW COVID-19 assay is also authorized for use at the Point of Care (POC), i.e., in patient care settings operating under a CLIA Certificate of Waiver, Certificate of Compliance, or Certificate of Accreditation. Performed By: #### 3 [id number] #### [facility] [address] [place], [place] [address] Telephone Encounteron 2020 Information Security Specialist Authentication Interface Message Text ??? Outbound call to mom ??? Wanted to follow up make sure rcvd autopsies ??? Left VM to call back Aleyda Marrufo [facility] [employer] [facility] Telephone Encounteron 2020 Information Security Specialist Authentication Interface Message Text ??? Spoke w/[facility] to get follow up on autopsy ??? Currently taking up to 60 days is correct ??? Reached at to mom @:[phone] ??? Spoke w/mom ??? Advised of what was stated that currently undergoing microscope process ??? Verbal understanding ??? Will follow up if she hasn't heard anything soon Aleyda Marrufo [employer] [facility] Telephone Encounteron 2020 Information Security Specialist Authentication Interface Message Text Outbound call to mom loss 09/14/2020 Concerned still haven't received autoscopy States that it been very difficult Provided additional support services Will follow back with me after 60 days if still no autoscopy Aleyda Marrufo [facility] [employer] [facility] BASIC METABOLIC PANELon 03 Anion gap [Moles/Vol] 15 mmol/L High 5-13 [facility] Comment on above: Performed By: #### L D, CH8 #### [facility] [address] [place] [address], Calcium [Mass/Vol] 8.2 mg/dL Low 8.4-10.4 [facility] Comment on above: Performed By: #### L Jose, CH8 #### [facility] [address] [place] [address], Chloride [Moles/Vol] 99 mmol/L Normal 97-111 [facility] Comment on above: Performed By: #### L D, CH8 #### [facility] [address] [place] [address], CO2 [Moles/Vol] 21 mmol/L Normal 21-30 [facility] Comment on above: Performed By: #### L D, CH8 #### [facility] [address] [place] [address], Creatinine [Mass/Vol] 0.49 mg/dL Low 0.50-1.10 The [facility] Comment on above: Performed By: #### L Jose, CH8 #### [facility] [address] [place] [address], ESTIMATED GFR (CKD-EPI) 130 mL/min/1.73sqm Normal >=60 The [facility] Comment on above: Performed By: #### L Jose, CH8 #### [facility] [address] [place] [address], Glucose [Mass/Vol] 146 mg/dL High 68-110 The [facility] Comment on above: Performed By: #### L Jose, CH8 #### [facility] [address] [place] [address], Potassium [Moles/Vol] 4.3 mmol/L Normal 3.3-5.3 [facility] Comment on above: Performed By: #### L Jose, CH8 #### [facility] [address] [place] [address], Sodium [Moles/Vol] 131 mmol/L Low 135-148 The [facility] Comment on above: Performed By: #### L Jose, CH8 #### [facility] [address] [place] [address], Urea nitrogen [Mass/Vol] 9 mg/dL Normal 8-22 [facility] Comment on above: Performed By: #### L Jose, CH8 #### [facility] [address] [place] [address], CBC WITH DIFFERENTIALon 03-0 Basophils (Bld) [#/Vol] 0.02 10*3/uL Normal 0.00-0.20 The [facility] Comment on above: Performed By: #### R BU #### [facility] [address] [place] [address], Basophils/100 WBC (Bld) 0.1 % Normal <=1.9 The [facility] Comment on above: Performed By: #### R BU #### [facility] [address] [place] [address], Eosinophils (Bld) [#/Vol] 0.03 10*3/uL Normal 0.00-0.70 [facility] Comment on above: Performed By: #### R BU #### [facility] [address] [place], [place], Eosinophils/100 WBC (Bld) 0.2 % Normal 0.1-4.0 [facility] Comment on above: Performed By: #### R BU #### [facility] [address] [place], [place], Erythrocyte distribution width (RBC) [Ratio] 15.3 % High 11.5-14.5 [facility] Comment on above: Performed By: #### R BU #### [facility] [address] [place], [place], Hematocrit (Bld) [Volume fraction] 19.7 % Critically low 36.0-46.0 [facility] Comment on above: Performed By: #### R BU #### [facility] [address] [place], [place], Hemoglobin (Bld) [Mass/Vol] 6.6 g/dL Critically low 12.0-15.0 [facility] Comment on above: Performed By: #### R BU #### [facility] [address] [place], [place], Lymphocytes (Bld) [#/Vol] 2.12 10*3/uL Normal 1.00-4.80 [facility] Comment on above: Performed By: #### R BU #### [facility] [address] [place], [place], Lymphocytes/100 WBC (Bld) 14.9 % Low 24.0-44.0 [facility] Comment on above: Performed By: #### R BU #### [facility] [address] [place], [place], MCH (RBC) [Entitic mass] 27.4 pg Normal 26.0-34.0 [facility] Comment on above: Performed By: #### R BU #### [facility] [address] [place], [place], MCHC (RBC) [Mass/Vol] 33.5 g/dL Normal 32.0-35.9 [facility] Comment on above: Performed By: #### R BU #### [facility] [address] [place], [place], MCV (RBC) [Entitic vol] 82 fL Normal 80-100 The [facility] Comment on above: Performed By: #### R BU #### [facility] [address] [place], [place], MONOCYTE DISTRIBUTION WIDTH Normal [facility] Comment on above: Performed By: #### R BU #### [facility] [address] [place], [place], Monocytes (Bld) [#/Vol] 1.34 10*3/uL High 0.20-1.00 [facility] Comment on above: Performed By: #### R BU #### [facility] [address] [place], [place], Monocytes/100 WBC (Bld) 9.4 % Normal 2.0-11.0 [facility] Comment on above: Performed By: #### R BU #### [facility] [address] [place], [place], Neutrophils (Bld) [#/Vol] 10.75 10*3/uL High 1.50-8.00 [facility] Comment on above: Performed By: #### R BU #### [facility] [address] [place], [place], Neutrophils/100 WBC (Bld) 75.4 % Normal 31.0-76.0 [facility] Comment on above: Performed By: #### R BU #### [facility] [address] [place], [place], Platelet mean volume (Bld) [Entitic vol] 10.1 fL Normal 7.5-11.2 [facility] Comment on above: Performed By: #### R BU #### [facility] [address] [place], [place], Platelets (Bld) [#/Vol] 131 10*3/uL Low 150-400 [facility] Comment on above: Performed By: #### R BU #### [facility] [address] [place] [address], RBC (Bld) [#/Vol] 2.41 10*6/uL Low 4.00-5.20 [facility] Comment on above: Performed By: #### R BU #### [facility] [address] [place] [address], WBC (Bld) [#/Vol] 14.3 10*3/uL High 4.5-11.5 [facility] Comment on above: Performed By: #### R BU #### [facility] [address] [place] [address], COMPLETE BLOOD COUNTon 09-15 Erythrocyte distribution width (RBC) [Ratio] 15.5 % High 11.5-14.5 [facility] Comment on above: Performed By: #### 1 [id number], [id number] #### [facility] [address] [facility] [place], [place] Hematocrit (Bld) [Volume fraction] 23.5 % Low 36.0-46.0 [facility] Comment on above: Performed By: #### 1 4601, [id number] #### [facility] [address] [facility] [place], [place] Hemoglobin (Bld) [Mass/Vol] 7.8 g/dL Low 12.0-15.0 The [facility] Comment on above: Performed By: #### 1 4601, [id number] #### [facility] [address] [facility] [place], [place] MCH (RBC) [Entitic mass] 28.1 pg Normal 26.0-34.0 The [facility] Comment on above: Performed By: #### 1 4601, [id number] #### [facility] [address] [facility] [place], [place] MCHC (RBC) [Mass/Vol] 33.2 g/dL Normal 32.0-35.9 The [facility] Comment on above: Performed By: #### 1 4601, [id number] #### [facility] [address] [facility] [place], [place] MCV (RBC) [Entitic vol] 85 fL Normal 80-100 [facility] Comment on above: Performed By: #### 1 4601, [id number] #### [facility] [address] [facility] [place], [place] Platelet mean volume (Bld) [Entitic vol] 9.9 fL Normal 7.5-11.2 [facility] Comment on above: Performed By: #### 1 4601, [id number] #### [facility] [address] [facility] [facility] [place], [place] Platelets (Bld) [#/Vol] 109 10*3/uL Low 150-400 [facility] Comment on above: Performed By: #### 1 4601, [id number] #### [facility] [address] [facility] [place], [place] RBC (Bld) [#/Vol] 2.77 10*6/uL Low 4.00-5.20 [facility] Comment on above: Performed By: #### 1 4601, [id number] #### [facility] [address] [facility] [place], [place] WBC (Bld) [#/Vol] 13.2 10*3/uL High 4.5-11.5 [facility] Comment on above: Performed By: #### 1 460, [id number] #### [facility] [address] [facility] [place], [place] Erythrocyte distribution width (RBC) [Ratio] 15.2 % High 11.5-14.5 The [facility] Comment on above: Performed By: #### C BDYFLD #### [facility] [address] [facility] [place], [place] Hematocrit (Bld) [Volume fraction] 17.7 % Critically low 36.0-46.0 [facility] Comment on above: Performed By: #### C BDYFLD #### [facility] 2500 [facility] [place], [place] Hemoglobin (Bld) [Mass/Vol] 6.0 g/dL Critically low 12.0-15.0 [facility] Comment on above: Performed By: #### C BDYFLD #### [facility] [address] [facility] [place], [place] MCH (RBC) [Entitic mass] 27.9 pg Normal 26.0-34.0 [facility] Comment on above: Performed By: #### C BDYFLD #### [facility] Pathology [address] [facility] [place], [place] MCHC (RBC) [Mass/Vol] 34.1 g/dL Normal 32.0-35.9 [facility] Comment on above: Performed By: #### C BDYFLD #### [facility] [address] [facility] [place], [place] MCV (RBC) [Entitic vol] 82 fL Normal 80-100 [facility] Comment on above: Performed By: #### C BDYFLD #### [facility] Pathology [address] [facility] [place], [place] Platelet mean volume (Bld) [Entitic vol] 10.1 fL Normal 7.5-11.2 [facility] Comment on above: Performed By: #### C BDYFLD #### [facility] Path[facility] [address] [facility] [place], [place] Platelets (Bld) [#/Vol] 113 10*3/uL Low 150-400 [facility] Comment on above: Performed By: #### C BDYFLD #### [facility] Pathology [address] [facility] [place], [place] RBC (Bld) [#/Vol] 2.17 10*6/uL Low 4.00-5.20 [facility] Comment on above: Performed By: #### C BDYFLD #### [facility] [address] [facility] [place], [place] WBC (Bld) [#/Vol] 13.4 10*3/uL High 4.5-11.5 [facility] Comment on above: Performed By: #### C BDYFLD #### [facility] [address] [facility] [place], [place] FIBRINOGENon 09-15-2020 FIBRINOGEN 372 mg/dL Normal 200-500 [facility] Comment on above: Performed By: #### 1 4601, [id number] #### [facility] [address] [facility] [place], [place] LDHon 09-15-2020 LD 247 IU/L High 50-220 The [facility] Comment on above: Performed By: #### L Jose CH8 #### S PATHOLOGY LABORATORY [address] [place] [address], PARTIAL THROMBOPLASTIN TIMEo n 09-15-2020 aPTT Coag (Bld) [Time] 26 s Normal 25-37 The [facility] Comment on above: Performed By: #### 1 4601, [id number] #### [facility] Pathology [address] [place] [address] [place], [place] PROTHROMBIN TIME AND INRon 0 09-15-2020 INR Coag (PPP) [Relative time] 0.98 {INR} Normal 0.90-1.10 The [facility] Comment on above: Performed By: #### 1 460, [id number] #### [facility] Pathology [address] [place] [address] [place], [place] PT Coag (PPP) [Time] 11.1 s Normal 9.7-12.9 The [facility] Comment on above: Performed By: #### 1 4601, [id number] #### [facility] Pathology [address] [place] [address] [place], [place] RED BLOOD CELL COMPONENTon 0 09-15-2020 BB ORDER ITEM Product status info to follow Normal The [facility] Comment on above: Performed By: #### Blessing VARGAS #### S [facility] LAB[facility]ATORY [address] [place] [address], RED BLOOD CELL UNIT STATUSon 09-15-2020 BLOOD PRODUCT CODE [id number] Normal The [facility] Comment on above: Performed By: #### Blessing VARGAS #### [facility] [address] [place] [address], BLOOD PRODUCT DESCRIPTION Red Blood Cells Normal The [facility] Comment on above: Performed By: #### Blessing VARGAS #### S [facility] [address] [place] [address], BLOOD PRODUCT STATUS Released to avail Normal The [facility] Comment on above: Performed By: #### Blessing VARGAS #### S PATHOLOGY LABORATORY [address] [place], [place], BLOOD PRODUCT UNIT INFO [id number] Normal [facility] Comment on above: Performed By: #### R BU #### S PATHOLOGY LABORATORY [address] [place], [place], BLOOD PRODUCT UNIT INFO [id number] Normal [facility] Comment on above: Performed By: #### R BU #### S [facility]OLOG[facility] LABORATORY [address] [place] [address], BLOOD PRODUCT UNIT TYPE 6200 Normal [facility] Comment on above: Result Comment: A Po s Performed By: #### R BU #### S [facility] LAB[facility]ORY [address] [place] [address], CROSSMATCH INTERPRETATION Compatible (E) Normal [facility] Comment on above: Performed By: #### R BU #### S [facility] LAB[facility]ATORY [address] [place] [address], ABO RH TYPEon 09-14-2020 ABO and Rh group Nom (Bld) Blood group A Rh(D) positive Normal [facility] Comment on above: Performed By: #### 1 4601, [id number] #### [facility] Pathology [address] [place] [address] Dr RashidSaundersJacob, [place] CHROMOSOME ANALYSIS, BONE MA RROWon 09-14-2020 CHROMOSOME ANALYSIS, BONE MARROW Resulting Agency Address Site ID: [facility] Name: [employer] [facility] Address: [address] [place] [address] [place], [place] Director: Shalom Dumont M.D.,PhD TNP TEST NOT PERFORMED Test cancelled for reorder purposes. Normal The [facility] Comment on above: Performed By: #### 1 4601, [id number] #### [facility] Pathology [address] [place] [address] Dr SaundersMilan, [place] CHROMOSOME ANALYSIS, TISSUEo n 09-14-2020 CHROMOSOME ANALYSIS, TISSUE CHROMOSOMES, TISSUE: TNP *Test Not Performed. * *Tissue culture and chromosome * *analysis identified insufficient * *metaphases for full cytogenetic * *interpretation. This test code is * *replaced with a code that * *summarizes the culture results. * *A fee for tissue culture will be * *included for this specimen. * Normal [facility] Comment on above: Order Comment: [employer] Agency Address Site ID: [facility] Name: [employer] Address: [address] [place] [address] Dr [place], [place] Director: Shalom Dumont M.D.,PhD Performed By: #### 1 4601, [id number] #### [facility] Pathology [address] [place] [address] CHROMOSOME ANALYSIS, TISSUE CHROMOSOMES, TISSUE: see note Order ID: [id number] Specimen Type: Products of Conception Clinical Indication: IUFD RESULT: NORMAL FEMALE KARYOTYPE See NOTE INTERPRETATION: Chromosome analysis revealed normal G-band patterns within the limits of standard cytogenetic analysis. Please expect the results of any other concurrent study in a separate report. NOTE: This is a report on cultures set from chorionic villi. A tissue specimen ([id number]) did not provided outgrowth. NOMENCLATURE: 46,XX ASSAY INFORMATION: Method: G-Banding Cells Counted: 20 Colonies Counted: 0 Band Level: 450 Cells Analyzed: 5 Cells Karyotyped: 2 This test does not address genetic disorders that cannot be detected by standard cytogenetic methods, or rare events such as low level mosaicism or subtle rearrangements. Maternal cell contamination is not excluded. Lino Daly, Ph.D., [facility], [employer], Cytogenetics and Genomics, Electronic Signature: 10/06/2020 3:36 PM Normal The [facility] Comment on above: Order Comment: The r eference range and other method performance specifications have not been established for this body fluid. The test must be integrated into the clinical context for interpretation. Performed By: #### G MARGIE BF #### [facility] [address] [place] [address], COMPLETE BLOOD COUNTon 09-14 Erythrocyte distribution width (RBC) [Ratio] 15.3 % High 11.5-14.5 [facility] Comment on above: Performed By: #### C BC #### [facility] [address] [place] [address], Hematocrit (Bld) [Volume fraction] 20.5 % Low 36.0-46.0 [facility] Comment on above: Performed By: #### C BC #### [facility] [address] [place] [address], Hemoglobin (Bld) [Mass/Vol] 7.0 g/dL Low 12.0-15.0 [facility] Comment on above: Performed By: #### C BC #### [facility] [address] [place] [address], MCH (RBC) [Entitic mass] 27.7 pg Normal 26.0-34.0 [facility] Comment on above: Performed By: #### C BC #### [facility] [address] [place] [address], MCHC (RBC) [Mass/Vol] 33.9 g/dL Normal 32.0-35.9 [facility] Comment on above: Performed By: #### C BC #### [facility] [address] [place] [address], MCV (RBC) [Entitic vol] 82 fL Normal 80-100 The [facility] Comment on above: Performed By: #### C BC #### [facility] [address] [place] [address], Platelet mean volume (Bld) [Entitic vol] 10.3 fL Normal 7.5-11.2 The [facility] Comment on above: Performed By: #### C BC #### [facility] [address] [place] [address], Platelets (Bld) [#/Vol] 123 10*3/uL Low 150-400 [facility] Comment on above: Performed By: #### C BC #### [facility] [address] [place] [address], RBC (Bld) [#/Vol] 2.51 10*6/uL Low 4.00-5.20 The [facility] Comment on above: Performed By: #### C BC #### [facility] [address] [place] [address], WBC (Bld) [#/Vol] 18.1 10*3/uL High 4.5-11.5 The [facility] Comment on above: Performed By: #### C BC #### [facility] [address] [place] [address], Erythrocyte distribution width (RBC) [Ratio] 15.4 % High 11.5-14.5 The [facility] Comment on above: Performed By: #### 1 4601, [id number] #### [facility] Pathology [address] [place] [address] [place], [place] Hematocrit (Bld) [Volume fraction] 26.5 % Low 36.0-46.0 The [facility] Comment on above: Performed By: #### 1 4601, [id number] #### [facility] Pathology [address] [place] [address] [place], [place] Hemoglobin (Bld) [Mass/Vol] 8.7 g/dL Low 12.0-15.0 The [facility] Comment on above: Performed By: #### 1 4601, [id number] #### [facility] Pathology [address] [place] [address] [place], [place] MCH (RBC) [Entitic mass] 26.9 pg Normal 26.0-34.0 The [facility] Comment on above: Performed By: #### 1 4601, [id number] #### [facility] [address] [facility] [place], [place] MCHC (RBC) [Mass/Vol] 32.7 g/dL Normal 32.0-35.9 The [facility] Comment on above: Performed By: #### 1 4601, [id number] #### [facility] [address] [facility] [place], [place] MCV (RBC) [Entitic vol] 82 fL Normal 80-100 The [facility] Comment on above: Performed By: #### 1 4601, [id number] #### [facility] [address] [facility] [address] [place], [place] Platelet mean volume (Bld) [Entitic vol] 10.9 fL Normal 7.5-11.2 [facility] Comment on above: Performed By: #### 1 460, [id number] #### [facility] [address] [facility] [place], [place] Platelets (Bld) [#/Vol] 235 10*3/uL Normal 150-400 [facility] Comment on above: Performed By: #### 1 4601, [id number] #### [facility] [address] [facility] [place], [place] RBC (Bld) [#/Vol] 3.22 10*6/uL Low 4.00-5.20 [facility] Comment on above: Performed By: #### 1 460, [id number] #### [facility] Pathology [address] [place] [address] [place], [place] WBC (Bld) [#/Vol] 22.9 10*3/uL High 4.5-11.5 The [facility] Comment on above: Performed By: #### 1 460, [id number] #### [facility] [address] [facility] [place], [place] FIBRINOGENon 09-14-2020 FIBRINOGEN 312 mg/dL Normal 200-500 The [facility] Comment on above: Performed By: #### 1 460, [id number] #### [facility] Pathology [address] [place] [address] [place], [place] FIBRINOGEN 329 mg/dL Normal 200-500 The [facility] Comment on above: Performed By: #### Blessing BU #### [facility] [address] [place] [address], LDHon 09-14-2020 LD 300 IU/L High 50-220 The [facility] Comment on above: Performed By: #### Josselin HANSON BF #### [facility] [address] [place] [address], PARTIAL THROMBOPLASTIN TIMEo n 09-14-2020 aPTT Coag (Bld) [Time] 20 s Low 25-37 The [facility] Comment on above: Performed By: #### 1 460, [id number] #### [facility] [address] [facility] [place], [place] aPTT Coag (Bld) [Time] 27 s Normal 25-37 [facility] Comment on above: Performed By: #### R BU #### [facility] [address] [place], [place], PROTHROMBIN TIME AND INRon 0 09-14-2020 INR Coag (PPP) [Relative time] 1.02 {INR} Normal 0.90-1.10 The [facility] Comment on above: Performed By: #### 1 4601, [id number] #### [facility] [address] [facility] [place], [place] PT Coag (PPP) [Time] 11.5 s Normal 9.7-12.9 The [facility] Comment on above: Performed By: #### 1 4601, [id number] #### [facility] [address] [facility] [place], [place] INR Coag (PPP) [Relative time] 1.04 {INR} Normal 0.90-1.10 The [facility] Comment on above: Performed By: #### R BU #### S PATHOLOGY LABORATORY [address] [place], [place], PT Coag (PPP) [Time] 11.8 s Normal 9.7-12.9 The [facility] Comment on above: Performed By: #### R BU #### S PATHOLOGY LABORATORY [address] [place], [place], Progress Noteson 09-14-2020 Information Security Specialist Authentication Interface Message Text To room to evaluate patient. Concern for tachysystole on tocometry, patient with persistent hypotension following epidural placement, with ongoing resuscitation from anesthesia. SVE: 5/-2. No evidence of blood on perineal pad. Bedside US: SIUP, cephalic presentation, no evidence of hemoperitoneum, though there is a possible concerning defect at level of previous section scar where the overlying myometrium cannot be confidently identified/traced continuously from lower uterine segment to fundus. US performed with Dr. Marroquin. Discussed with patient. Given ongoing hypotension, US findings concerning for possible uterine rupture, recommend proceeding with delivery at this time. Will type and cross x 2u pRBC. R/b/a of section discussed w/ pt including but not limited to risk of bleeding (requiring blood transfusion), infection (intrabdominal and superficial/wound) and damage to adjacent organs (bowel, bladder, ureters, nerves and vessels). Risk of blood transfusion explained as risk of HIV <1/1million, HepB AND C <1/100,000. Risk of adhesion, potential for permanent pain/numbness in skin incision, chronic pelvic/abdominal pain. Risk to future (uterine rupture, blood loss, hypoxia/asphyxia and ) discussed. Consents signed. Carmen Hutton MD, MPH PGY-3, Obstetrics and Gynecology [phone] Normal [facility] RED BLOOD CELL COMPONENTon 0 09-14-2020 BB ORDER ITEM Product status info to follow Normal [facility] Comment on above: Performed By: #### C BDYFLD #### [facility] Pathology [address] [place] [address] [place], [place] RED BLOOD CELL UNIT STATUSon 09-14-2020 BLOOD PRODUCT CODE [id number] Normal The [facility] Comment on above: Performed By: #### 1 4601, [id number] #### [facility] [address] [place] [address] [place], [place] BLOOD PRODUCT DESCRIPTION Red Blood Cells Normal The [facility] Comment on above: Performed By: #### 1 4601, [id number] #### [facility] [address] [place] [address] [place], [place] BLOOD PRODUCT STATUS Transfused Normal The [facility] Comment on above: Performed By: #### 1 4601, [id number] #### [facility] [address] [place] [address] [place], [place] BLOOD PRODUCT UNIT INFO [id number] Normal The [facility] Comment on above: Performed By: #### 1 4601, [id number] #### [facility] [address] [facility] [place], [place] BLOOD PRODUCT UNIT INFO [id number] Normal The [facility] Comment on above: Performed By: #### 1 4601, [id number] #### [facility] [address] [place] [address] [place], [place] BLOOD PRODUCT UNIT TYPE 5100 Normal The [facility] Comment on above: Result Comment: O Po s Performed By: #### 1 4601, [id number] #### [facility] [address] [facility] [place], [place] CROSSMATCH INTERPRETATION Compatible (IS) Normal The [facility] Comment on above: Performed By: #### 1 4601, [id number] #### [facility] [address] [facility] [place], [place] AEROBIC BODY FLUID CULTUREon 09-13-2020 AEROBIC BODY FLUID CULTURE C BDYFLD: No Growth GRAM STAIN: This Gram Stain was performed on a Cytocentrifuged specimen. No Polymorphonuclear Leukocytes seen 3+ Squamous Epithelial Cells No organisms seen Normal The [facility] Comment on above: Performed By: #### C BDYFLD #### [facility] [address] [facility] [place], [place] BASIC METABOLIC PANELon 08-18 Anion gap [Moles/Vol] 18 mmol/L High 5-13 The [facility] Comment on above: Performed By: #### Josselin HANSON BF #### [facility] [address] [place] [address], Calcium [Mass/Vol] 9.2 mg/dL Normal 8.4-10.4 The [facility] Comment on above: Performed By: #### Josselin HANSON BF #### S PATHOLOGY LABORATORY [address] [place] [address], Chloride [Moles/Vol] 101 mmol/L Normal 97-111 The [facility] Comment on above: Performed By: #### Josselin HANSON BF #### S [facility] [address] [place] [address], CO2 [Moles/Vol] 21 mmol/L Normal 21-30 The [facility] Comment on above: Performed By: #### Josselin HANSON BF #### S [facility] [address] [place] [address], Creatinine [Mass/Vol] 0.37 mg/dL Low 0.50-1.10 The [facility] Comment on above: Performed By: #### Josselin HANSON BF #### S [facility]ORY [address] [place] [address], ESTIMATED GFR (CKD-EPI) 143 mL/min/1.73sqm Normal >=60 [facility] Comment on above: Performed By: #### Josselin HANSON BF #### S [facility] [address] [place] [address], Glucose [Mass/Vol] 78 mg/dL Normal 68-110 [facility] Comment on above: Performed By: #### Josselin HANSON BF #### S [facility] [address] [place] [address], Potassium [Moles/Vol] 4.2 mmol/L Normal 3.3-5.3 [facility] Comment on above: Performed By: #### Josselin HANSON BF #### [facility] [address] [place] [address], Sodium [Moles/Vol] 136 mmol/L Normal 135-148 [facility] Comment on above: Performed By: #### Josselin HANSON BF #### [facility] [address] [place] [address], Urea nitrogen [Mass/Vol] 4 mg/dL Low 8-22 The [facility] Comment on above: Performed By: #### Josselin HANSON BF #### [facility] [address] [place] [address], CARDIOLIPIN ANTIBODY IGG/IGM on 09-13-2020 ACARD G < 1.6 Normal <20.0 [facility] Comment on above: Order Comment: Refer ence Range:Cardiolipin IgG AB : Negative :<20.0 GPL U/mL Positive :> or = to 20.0 GPL U/mLCardiolipin IgM AB : Negative :<20.0 MPL U/mL Positive :> or = to 20.0 MPL U/mL Performed By: #### R BU #### [facility] [address] [place] [address], ACARD M 0.7 MPL U/mL Normal <20.0 [facility] Comment on above: Order Comment: Refer ence Range:Cardiolipin IgG AB : Negative :<20.0 GPL U/mL Positive :> or = to 20.0 GPL U/mLCardiolipin IgM AB : Negative :<20.0 MPL U/mL Positive :> or = to 20.0 MPL U/mL Performed By: #### Blessing BU #### [facility] [address] [place] [address], CBC WITH DIFFERENTIALon 08-18 Basophils (Bld) [#/Vol] 0.03 10*3/uL Normal 0.00-0.20 [facility] Comment on above: Performed By: #### Josselin HANSON BF #### [facility] [address] [place] [address], Basophils/100 WBC (Bld) 0.3 % Normal <=1.9 [facility] Comment on above: Performed By: #### Josselin HANSON BF #### [facility] [address] [place] [address], Eosinophils (Bld) [#/Vol] 0.04 10*3/uL Normal 0.00-0.70 [facility] Comment on above: Performed By: #### Josselin HANSON BF #### [facility] [address] [place] [address], Eosinophils/100 WBC (Bld) 0.4 % Normal 0.1-4.0 [facility] Comment on above: Performed By: ###Eliecer HANSON BF #### [facility] [address] [place] [address], Erythrocyte distribution width (RBC) [Ratio] 15.3 % High 11.5-14.5 [facility] Comment on above: Performed By: #### Josselin HANSON BF #### [facility] [address] [place] [address], Hematocrit (Bld) [Volume fraction] 37.8 % Normal 36.0-46.0 [facility] Comment on above: Performed By: #### Josselin HANSON BF #### [facility] [address] [place] [address], Hemoglobin (Bld) [Mass/Vol] 12.5 g/dL Normal 12.0-15.0 [facility] Comment on above: Performed By: #### Josselin HANSON BF #### [facility] [address] [place] [address], Lymphocytes (Bld) [#/Vol] 2.28 10*3/uL Normal 1.00-4.80 The [facility] Comment on above: Performed By: #### Josselin MARGIE BF #### [facility] [address] [place] [address], Lymphocytes/100 WBC (Bld) 22.1 % Low 24.0-44.0 [facility] Comment on above: Performed By: #### Josselin MARGIE BF #### [facility] [address] [place] [address], MCH (RBC) [Entitic mass] 27.2 pg Normal 26.0-34.0 [facility] Comment on above: Performed By: #### Josselin MARGIE BF #### [facility] [address] [place] [address], MCHC (RBC) [Mass/Vol] 33.2 g/dL Normal 32.0-35.9 The [facility] Comment on above: Performed By: #### Josselin MARGIE BF #### [facility] [address] [place] [address], MCV (RBC) [Entitic vol] 82 fL Normal 80-100 The [facility] Comment on above: Performed By: #### Josselin MARGIE BF #### [facility] [address] [place] [address], MONOCYTE DISTRIBUTION WIDTH Normal The [facility] Comment on above: Performed By: #### Josselin MARGIE BF #### [facility] [address] [place] [address], Monocytes (Bld) [#/Vol] 0.77 10*3/uL Normal 0.20-1.00 The [facility] Comment on above: Performed By: #### Josselin MARGIE BF #### [facility] [address] [place] [address], Monocytes/100 WBC (Bld) 7.4 % Normal 2.0-11.0 The [facility] Comment on above: Performed By: #### Josselin MARGIE BF #### [facility] [address] [place] [address], Neutrophils (Bld) [#/Vol] 7.21 10*3/uL Normal 1.50-8.00 [facility] Comment on above: Performed By: #### Josselin HANSON BF #### [facility] [address] [place] [address], Neutrophils/100 WBC (Bld) 69.9 % Normal 31.0-76.0 [facility] Comment on above: Performed By: #### Josselin HANSON BF #### [facility] [address] [place] [address], Platelet mean volume (Bld) [Entitic vol] 10.7 fL Normal 7.5-11.2 [facility] Comment on above: Performed By: #### Josselin HANSON BF #### [facility] [address] [place] [address], Platelets (Bld) [#/Vol] 160 10*3/uL Normal 150-400 [facility] Comment on above: Performed By: #### Josselin HANSON BF #### [facility] [address] [place] [address], RBC (Bld) [#/Vol] 4.61 10*6/uL Normal 4.00-5.20 [facility] Comment on above: Performed By: #### Josselin HANSON BF #### [facility] [address] [place] [address], WBC (Bld) [#/Vol] 10.3 10*3/uL Normal 4.5-11.5 [facility] Comment on above: Performed By: #### Josselin HANSON BF #### [facility] [address] [place] [address], CYTOMEGALOVIRUS ANTIBODY IGG on 09-13-2020 CMV G Reactive Abnormal Nonreactive [facility] Comment on above: Performed By: #### Devin BARCLAY G #### [facility] [address] [place] [address], CYTOMEGALOVIRUS ANTIBODY IGM on 09-13-2020 CMV M < 0.2 Normal [facility] Comment on above: Order Comment: Refer ence Range:Negative < or = to 0.8 AIEquivocal 0.9 - 1.0 AIPositive > or = to 1.1 AIThe magnitude of the result measured above the cut-off is not indicative of the total amount of the antibodies detected. The following results were obtained with the Neosens 2200 CMV IgM test. Results obtained from other manufacturers' assay methods may not be used interchangeably. Performed By: #### C BDYFLD #### [facility] [address] [place] [address] HEMOGLOBIN ELUTIONon 0 09-13-2020 CELL/ RHIG COMMENTS Detected Normal [facility] Comment on above: Performed By: #### G MARGIE BF #### [facility] [address] [place] [address], HEMOGLOBIN ELUTION 0.00 % Normal <=0.00 [facility] Comment on above: Performed By: #### G MARGIE BF #### [facility] [address] [place] [address], TOTAL MLS OF CELLS 0.00 Normal <=0.00 The [facility] Comment on above: Performed By: #### G MARGIE BF #### [facility] [address] [place] [address], FIBRINOGENon 09-13-2020 FIBRINOGEN 541 mg/dL High 200-500 The [facility] Comment on above: Performed By: #### G MARGIE BF #### [facility] [address] [place] [address], FLUID CELL COUNTon Clarity (U) Cloudy Normal [facility] Comment on above: Order Comment: The r eference range and other method performance specifications have not been established for this body fluid. The test must be integrated into the clinical context for interpretation. Performed By: #### G MARGIE BF #### S [facility]ATORY [address] [place] [address], Color (U) Brown Normal [facility] Comment on above: Order Comment: The r eference range and other method performance specifications have not been established for this body fluid. The test must be integrated into the clinical context for interpretation. Performed By: #### G MARGIE BF #### S [facility] [address] [place] [address], RBC (Bld) [#/Vol] 0.76694 10*6/uL Normal Th e [facility] Comment on above: Order Comment: The r eference range and other method performance specifications have not been established for this body fluid. The test must be integrated into the clinical context for interpretation. Performed By: #### G MARGIE BF #### S [facility] [address] [place] [address], WBC (Bld) [#/Vol] 0.004 10*3/uL Normal [facility] Comment on above: Order Comment: The r eference range and other method performance specifications have not been established for this body fluid. The test must be integrated into the clinical context for interpretation. Performed By: #### G MARGIE BF #### [facility] [address] [place] [address], FLUID DIFFERENTIALon 021 CELLS COUNTED TOTAL # IN BLOOD 7 Normal [facility] Comment on above: Performed By: #### Josselin MARGIE BF #### [facility] [address] [place] [address], FLUID, LYMPHOCYTES 57 % Normal [facility] Comment on above: Performed By: #### G MARGIE BF #### S [facility] [address] [place] [address], FLUID, MONOCYTES/MACROPHA GES 14 % Normal [facility] Comment on above: Performed By: #### G MARGIE BF #### S [facility] [address] [place] [address], FLUID, NEUTROPHILS 29 % Normal [facility] Comment on above: Performed By: #### G MARGIE BF #### S [facility] [address] [place] [address], GLUCOSE, BODY FLUIDon 2020 GLUCOSE, FLUID 18 mg/dL Normal [facility] Comment on above: Order Comment: The r eference range and other method performance specifications have not been established for this body fluid. The test must be integrated into the clinical context for interpretation. Performed By: #### G MARGIE BF #### S [facility] [address] [place] [address], HEMOGLOBIN A1Con 09-13-2020 Glucose [Mass/Vol] 80 mg/dL Normal The [facility] Comment on above: Order Comment: HbA1c of 5.7-6.4% have increased risk for diabetes and CV(Source :ADA 2014 Standard of Medical Care in Diabetes) Performed By: #### R ALICIA #### S [facility] [address] [place] [address], HbA1c (Bld) [Mass fraction] 4.4 % Normal 4.0-5.6 [facility] Comment on above: Order Comment: HbA1c of 5.7-6.4% have increased risk for diabetes and CV(Source :ADA 2014 Standard of Medical Care in Diabetes) Performed By: #### R ALICIA #### S [facility] [address] [place] [address], HEPATIC FUNCTION PANELon Albumin [Mass/Vol] 2.7 g/dL Low 3.4-5.1 The [facility] Comment on above: Performed By: #### L Jose, CH8 #### [facility] [address] [place] [address], ALK 101 IU/L Normal 40-200 The [facility] Comment on above: Performed By: #### Louis Garcia, CH8 #### [facility] [address] [place] [address], ALT [Catalytic activity/Vol] 18 U/L Normal 7-40 The [facility] Comment on above: Performed By: #### Louis Garcia, CH8 #### S [facility] [address] [place] [address], AST [Catalytic activity/Vol] 8 U/L Normal 7-40 The [facility] Comment on above: Result Comment: Hemo lysis present Performed By: #### L Jose, CH8 #### S [facility] [address] [place] [address], Bilirubin [Mass/Vol] 1.9 mg/dL High 0.1-1.5 The [facility] Comment on above: Performed By: #### L Jose, CH8 #### S [facility] [address] [place] [address], Bilirubin.direct [Mass/Vol] 0.80 mg/dL High 0.10-0.30 The [facility] Comment on above: Performed By: #### L D, CH8 #### S [facility] [address] [place] [address], Protein [Mass/Vol] 5.8 g/dL Low 6.2-8.3 The [facility] Comment on above: Performed By: #### L D, CH8 #### [facility] [address] [place] [address], HEPATITIS B SURFACE ANTIGENo n 09-13-2020 HBSAG Non-Reactive Normal Non-Reactive The [facility] Comment on above: Performed By: #### H BSAG #### [facility] [address] [place] [address], HEPATITIS C ANTIBODYon 09-13 HCV Non-Reactive Normal Nonreactive The [facility] Comment on above: Performed By: #### 1 [id number], [id number] #### [facility] [address] [place] [address] [place], [place] HIV1 HIV2 AGAB SCRNon 2020 HIV AG-AB SCREEN Non-Reactive Normal Non-Reactive The [facility] Comment on above: Order Comment: HIV I nformation: ???[place] Rev. code 3701.243(E):This information has been disclosed to you from confidential records protected from disclosure by state law. ???You shall make no further disclosure of this information without the specific, written, and informed release of the individual to whom it pertains, or as otherwise permitted by state law. ???A general authorization for the release of medical or other information is not sufficient for the purpose of the release of HIV test results or diagnoses. Result Comment: No l aboratory evidence for HIV Infection. Negative result does not rule out acute HIV infection. If acute HIV infection is suspected, recommend ordering an HIV-1 RNA quanitification test. Performed By: #### R BU #### S [facility] [address] [place] [address], LDHon 09-13-2020 LD 501 IU/L High 50-220 The [facility] Comment on above: Result Comment: Hemo lysis present Performed By: #### C BDYFLD #### [facility] [address] [place] [address] [place], [place] LUPUS ANTICOAGULANT PANELon 09-13-2020 LA Negative Normal Negative [facility] Comment on above: Order Comment: [employer] Address Site ID: AMD Name: [employer] [facility] Address: [address] [place] [address] Dr [place], [place] Director: Shalom Dumont M.D.,PhD Performed By: #### 1 [id number], [id number] #### [facility] [address] [facility] [place], [place] NOVEL CORONAVIRUS (COVID-19) on 09-13-2020 SARS-CoV-2 (COVID-19) RNA AD+probe Ql (Unsp spec) Not detected Normal Not Detected [facility] Comment on above: Order Comment: This test is intended for use only under Emergency Use Authorization (EUA). This test was developed, and its performance characteristics determined by [facility] which is certified under CLIA as qualified to perform high complexity clinical laboratory testing. Result Comment: This assay was performed using [employer]IRGIN[employer] RTPCR technology. Performed By: #### 1 [id number], [id number] #### [facility] [address] [facility] [place], [place] PARTIAL THROMBOPLASTIN TIMEo n 09-13-2020 aPTT Coag (Bld) [Time] 29 s Normal 25-37 The [facility] Comment on above: Performed By: #### 1 [id number], [id number] #### [facility] [address] [facility] [place], [place] PARVOVIRUS B-19 ANTIBODIESon 09-13-2020 PARVOVIRUS B19 IGG 5.1 High <0.9 The [facility] Comment on above: Order Comment: [facility] Agency Address Site ID: AMD Name: [employer] [facility] Address: [address] [place] [address] Dr [place], [place] Director: Shalom Dumont M.D.,PhD Performed By: #### C BDYFLD #### [facility] [address] [facility] [place], [place] PARVOVIRUS B19 IGM 0.1 Normal <0.9 The [facility] Comment on above: Order Comment: [employer] Address Site ID: AMD Name: [employer] [place] Address: [address] [place] [address] Dr Antoine[place], [place] Director: Shalom Dumont M.D.,PhD Result Comment: Reference Range: <0.9 Negative 0.9-1.1 Equivocal >1.1 Positive IgG persists for years and provides life-long immunity. Results from any one IgM assay should not be used as a sole determinant of a current or recent infection. Because IgM tests can yield false positive results and low levels of IgM antibody may persist for months post infection, reliance on a single test result could be misleading. If an acute infection is suspected, consider obtaining a new specimen and submit for both IgG and IgM testing in two or more weeks. To diagnose current infection, consider Parvovirus B19 DNA, PCR. Performed By: #### C BDYFLD #### [facility] [address] [facility] [address] RashidSaundersJacob, [place] PROTHROMBIN TIME AND INRon 0 09-13-2020 INR Coag (PPP) [Relative time] 0.95 {INR} Normal 0.90-1.10 [facility] Comment on above: Performed By: #### 1 [id number], [id number] #### [facility] [address] [facility] [place], [place] PT Coag (PPP) [Time] 10.7 s Normal 9.7-12.9 [facility] Comment on above: Performed By: #### 1 4601, [id number] #### [facility] [address] [facility] [place], [place] RUBELLAon 09-13-2020 RUB 13.0 IU/mL Normal [facility] Comment on above: Order Comment: Nonre active : < or = 9.9 IU/mLEquivocal : 10.0 - 14.9 IU/mLReactive : > or = 15.0 IU/mL* A Nonreactive test result indicates no current or previous infection with rubella virus. Such individuals are presumed to be susceptible to primary infection.* A Reactive test result indicates past or current infection with rubella virus or vaccination and indicates immunity to rubella.The following results were obtained using the Access Rubella IgG EIA assay. Values obtained with different electrical mechanic???s assay methods may not be used interchangeably. Performed By: #### C BDYFLD #### [facility] [address] [place] [address] [place], [place] RUBELLA INTERPRETATION Equivocal Normal The [facility] Comment on above: Order Comment: Nonre active : < or = 9.9 IU/mLEquivocal : 10.0 - 14.9 IU/mLReactive : > or = 15.0 IU/mL* A Nonreactive test result indicates no current or previous infection with rubella virus. Such individuals are presumed to be susceptible to primary infection.* A Reactive test result indicates past or current infection with rubella virus or vaccination and indicates immunity to rubella.The following results were obtained using the Access Rubella IgG EIA assay. Values obtained with different electrical mechanic???s assay methods may not be used interchangeably. Performed By: #### C BDYFLD #### [facility] [address] [place] [address] Dr RashidSaundersJacob, [place] SYPHILIS WITH CONFIRMATIONon 09-13-2020 SYPHILIS TOTAL (IGG/IGM) Non-Reactive Normal Non-Reactive [facility] Comment on above: Order Comment: No Se rologic evidence of syphilis.A nonreactive result does not exclude the possibility of exposure to or infection with T. pallidum. Antibodies may be at low or undetectable levels in incubating or early primary disease and in some clinical conditions. Performed By: #### R BU #### [facility] [address] [place] [address], TPPA Normal The [facility] Comment on above: Order Comment: No Se rologic evidence of syphilis.A nonreactive result does not exclude the possibility of exposure to or infection with T. pallidum. Antibodies may be at low or undetectable levels in incubating or early primary disease and in some clinical conditions. Performed By: #### R BU #### [facility] [address] [place] [address], T4 BINDING GLOBULINon 2020 THYROXINE BINDING GLOBULIN 45.8 mcg/mL High 13.5-30.9 The [facility] Comment on above: Order Comment: [employer] [place] Address Site ID: AMD Name: [employer] [facility] Address: [address] [place] [address] [place] [address] Director: Shalom Dumont M.D.,PhD Result Comment: To convert to nmol/L, multiply the result by 18.5. Performed By: #### C BDYFLD #### [facility] [address] [facility] [address] RashidSaundersJacob, [place] THYROXINE (T4), FREEon 09-13 T4 F 0.69 ng/dL Normal 0.45-1.80 [facility] Comment on above: Performed By: #### 1 [id number], [id number] #### [facility] [address] [facility] [place], [place] TOTAL PROTEIN WITH CREATININ E, RANDOM URINEon 09-13-2020 CREATININE, URINE 20 mg/dL Normal 10-300 [facility] Comment on above: Performed By: #### 1 [id number], [id number] #### [facility] [address] [facility] [address] RashidSaundersJacob, [place] TOTAL PROTEIN, URINE < 6 Normal <=100 [facility] Comment on above: Performed By: #### 1 4601, [id number] #### [facility] [address] [facility] [place], [place] TP/CREAT RATIO < 300 High <=164 [facility] Comment on above: Performed By: #### 1 4601, [id number] #### [facility] [address] [facility] [place], [place] TOX SCREEN W/CONFIRM - OB/GY Non 09-13-2020 ALCOHOL - TOX W/ CONF Negative Normal Cutoff: 10 [facility] Comment on above: Order Comment: Scree n results are reported as positive (at or above the cutoff) or negative (below the cutoff).The GC/MS testing (if applicable) was developed and its performance characteristics determined by [facility] in a manner consistent with CLIA requirements. This test has not been cleared or approved by the U.S. Food and Drug Administration; however, the FDA has determined that such clearance or approval is not necessary. Performed By: #### C BDYFLD #### [facility] [address] [facility] [place], [place] AMPH CL Negative Normal Cutoff: 1000 [facility] Comment on above: Order Comment: Scree n results are reported as positive (at or above the cutoff) or negative (below the cutoff).The GC/MS testing (if applicable) was developed and its performance characteristics determined by [facility] in a manner consistent with CLIA requirements. This test has not been cleared or approved by the U.S. Food and Drug Administration; however, the FDA has determined that such clearance or approval is not necessary. Performed By: #### C BDYFLD #### [facility] [address] [place], [place] CRISTAL CL Negative Normal Cutoff: 200 [facility] Comment on above: Order Comment: Scree n results are reported as positive (at or above the cutoff) or negative (below the cutoff).The GC/MS testing (if applicable) was developed and its performance characteristics determined by [facility] in a manner consistent with CLIA requirements. This test has not been cleared or approved by the U.S. Food and Drug Administration; however, the FDA has determined that such clearance or approval is not necessary. Performed By: #### C BDYFLD #### [facility] [address] [place], [place] BENZO CL Negative Normal Cutoff: 200 [facility] Comment on above: Order Comment: Scree n results are reported as positive (at or above the cutoff) or negative (below the cutoff).The GC/MS testing (if applicable) was developed and its performance characteristics determined by [facility] in a manner consistent with CLIA requirements. This test has not been cleared or approved by the U.S. Food and Drug Administration; however, the FDA has determined that such clearance or approval is not necessary. Performed By: #### C BDYFLD #### [facility] [address] [place], [place] COCAINE CL- TOX W/ CONF Negative Normal Cutoff: 300 [facility] Comment on above: Order Comment: Scree n results are reported as positive (at or above the cutoff) or negative (below the cutoff).The GC/MS testing (if applicable) was developed and its performance characteristics determined by [facility] in a manner consistent with CLIA requirements. This test has not been cleared or approved by the U.S. Food and Drug Administration; however, the FDA has determined that such clearance or approval is not necessary. Performed By: #### C BDYFLD #### [facility] [address] [facility] [place], [place] FENTANYL Negative Normal Cutoff: 1 [facility] Comment on above: Order Comment: Scree n results are reported as positive (at or above the cutoff) or negative (below the cutoff).The GC/MS testing (if applicable) was developed and its performance characteristics determined by [facility] in a manner consistent with CLIA requirements. This test has not been cleared or approved by the U.S. Food and Drug Administration; however, the FDA has determined that such clearance or approval is not necessary. Performed By: #### C BDYFLD #### [facility] [address] [facility] [place], [place] METH CL Negative Normal Cutoff: 300 [facility] Comment on above: Order Comment: Scree n results are reported as positive (at or above the cutoff) or negative (below the cutoff).The GC/MS testing (if applicable) was developed and its performance characteristics determined by [facility] in a manner consistent with CLIA requirements. This test has not been cleared or approved by the U.S. Food and Drug Administration; however, the FDA has determined that such clearance or approval is not necessary. Performed By: #### C BDYFLD #### [facility] [address] [facility] [place], [place] OPI CL Negative Normal Cutoff: 300 [facility] Comment on above: Order Comment: Scree n results are reported as positive (at or above the cutoff) or negative (below the cutoff).The GC/MS testing (if applicable) was developed and its performance characteristics determined by [facility] in a manner consistent with CLIA requirements. This test has not been cleared or approved by the U.S. Food and Drug Administration; however, the FDA has determined that such clearance or approval is not necessary. Performed By: #### C BDYFLD #### [facility] [address] [facility] [place], [place] OXYCODONE Negative Normal Negative, In Process [facility] Comment on above: Order Comment: Scree n results are reported as positive (at or above the cutoff) or negative (below the cutoff).The GC/MS testing (if applicable) was developed and its performance characteristics determined by [facility] in a manner consistent with CLIA requirements. This test has not been cleared or approved by the U.S. Food and Drug Administration; however, the FDA has determined that such clearance or approval is not necessary. Result Comment: Oxyc odone and metabolites of Oxycodone (Oxymorphone, Noroxycodone, and Noroxymorphone) are measured/detected in this assay method. Performed By: #### C BDYFLD #### [facility] [address] [facility] [place], [place] PCP CL Negative Normal Cutoff: 25 [facility] Comment on above: Order Comment: Scree n results are reported as positive (at or above the cutoff) or negative (below the cutoff).The GC/MS testing (if applicable) was developed and its performance characteristics determined by [facility] in a manner consistent with CLIA requirements. This test has not been cleared or approved by the U.S. Food and Drug Administration; however, the FDA has determined that such clearance or approval is not necessary. Performed By: #### C BDYFLD #### [facility] [address] [facility] [place], [place] THC CL - TOX W/ CONF Negative Normal Cutoff: 50 [facility] Comment on above: Order Comment: Scree n results are reported as positive (at or above the cutoff) or negative (below the cutoff).The GC/MS testing (if applicable) was developed and its performance characteristics determined by [facility] in a manner consistent with CLIA requirements. This test has not been cleared or approved by the U.S. Food and Drug Administration; however, the FDA has determined that such clearance or approval is not necessary. Performed By: #### C BDYFLD #### [facility] [address] [facility] [place], [place] TOXOPLASMOSIS IGGon 09-13-19 21 TOXOPLASMOSIS IGG AB Negative Normal Negative [facility] Comment on above: Performed By: #### 1 [id number], [id number] #### [facility] [address] [facility] [place], [place] TRIIODOTHYRONINE (T3)on 08-18 T3 140.9 ng/dL Normal 87.0-179.0 [facility] Comment on above: Performed By: #### L Jose CH8 #### [facility] [address] [place], [place], TRIIODOTHYRONINE (T3), FREEo n 09-13-2020 FT3 3.0 pg/mL Normal 2.3-4.2 [facility] Comment on above: Performed By: #### C BDYFLD #### [facility] [address] [facility] [place], [place] TSHon 09-13-2020 TSH 1.638 uIU/mL Normal 0.450-5.330 [facility] Comment on above: Result Comment: Refe birgit range for women as applicable: First Trimester: 0. 050 to 3.700 uIU/mL Second Trimester: 0. 310 to 4.350 uIU/mL Third Trimester: 0. 410 to 5.180 uIU/mL Performed By: #### G MARGIE BF #### [facility] [address] [place] [address], TYPE AND SCREENon 09-13-2020 ABO and Rh group Nom (Bld) Blood group A Rh(D) positive Normal [facility] Comment on above: Performed By: #### 1 [id number], [id number] #### [facility] [address] [facility] [place], [place] ABO and Rh group Nom (Bld) No Previous Results Normal [facility] Comment on above: Performed By: #### 1 [id number], [id number] #### [facility] [address] [facility] [place], [place] ABSC INT Negative Normal [facility] Comment on above: Performed By: #### 1 4601, [id number] #### [facility] [address] [facility] [place], [place] URIC ACIDon 09-13-2020 Urate [Mass/Vol] 6.0 mg/dL Normal 2.0-7.3 [facility] Comment on above: Performed By: #### C BDYFLD #### [facility] [address] [facility] [place], [place] CULTURE FOR BETA-HEMOLYTIC S TREPon 09-03-2020 CULTURE FOR BETA-HEMOLYTIC STREP C STREP: Negative for beta-hemolytic Streptococci group B. Normal [facility] Comment on above: Performed By: #### G MARGIE BF #### [facility] [address] [facility] [place], [place], [facility] Screen on 11-14-2018 Cholesterol in HDL mass conc 57 mg/dL Normal 40-59 [facility] Comment on above: Result Comment: ATP III HDL Cholesterol Classification is Desirable. Expected Values: Males: >55 = No Risk 35-55 = Moderate Risk <35 = High Risk Females: >65 = No Risk 45-65 = Moderate Risk <45 = High Risk NCEP Guidelines: Third Report November 2000 >59 = negative risk factor for CHD <40 = major risk factor for CHD Performed By: #### B WW #### [facility] [address] [place] [address] Cholesterol in LDL mass conc 108 mg/dL Normal 0-129 [facility] Comment on above: Result Comment: ATP III LDL Classification is Near Optimal. Performed By: #### B WW #### [facility] [address] [place] [address] Cholesterol mass conc 179 mg/dL Normal 0-199 [facility] Comment on above: Result Comment: ATP III Cholesterol classification is Desirable. Performed By: #### B WW #### [facility] [address] [place] [address] Triglyceride mass conc 72 mg/dL Normal 0-150 [facility] Comment on above: Result Comment: ATP III Triglycerides Classification is Normal. Effective: 08/23/2018 New reference range for this analyte has been established. Performed By: #### B WW #### [facility] [address] [place] [address] Glucose mass conc 83 mg/dL Normal 70-99 [facility] Comment on above: Result Comment: Effe ctive: 08/23/2018 New reference range for this analyte has been established. Performed By: #### B WW #### [facility] [address] [place] [id number] EVENT MONITORon 08-03-2018 EVENT MONITOR [facility] [address] [place] [address] EVENT MONITOR PATIENT NAME: KAVON RUBY : 1990 MED REC NO: [id number] ROOM: ACCOUNT NO: [id number] ADMIT DATE: 06/28/2018 PROVIDER: Erma Miles NAME OF TEST: A 30-DAY EVENT RECORDER. INDICATIONS: History of SVT. INTERPRETATION: She wore her event recorder from 06/28/2018 to 07/27/2018. She had 5 transmissions with symptoms, 17 were automated. In general, she remained in sinus rhythm throughout the recording. She had multiple transmissions that appeared to be in SVT at 160 to 170 beats per minute. It was difficult to determine whether these were sinus tachycardia or SVT. We will need to correlate whether these episodes of tachycardia were occurring when she was exercising or at rest. If her tachycardia occurred at rest, then it would be more than likely it was SVT. If they are asymptomatic, one could use either a very low dose of a beta-tiago such as Lopressor 12.5 mg daily or a very low dose of Cardizem at 30 mg twice a day. ERMA MILES [id number] Doc#: [id number] CC: Jenna Bansal Normal [facility] CBC with Diffon 06-09-2018 Morphology Interp Cody (Bld) FEW Normal [facility] Comment on above: Result Comment: LARG E PLATELETS OCCASIONAL GIANT PLATELETS Performed By: #### Z FAST, CP, LIPR, MG, TSHX, VD25, CDP #### [facility] [address] [facility] [place] [address] Abs. Basophil 0.00 k/uL Normal 0.0-0.2 [facility] Comment on above: Performed By: #### Z FAST, CP, LIPR, MG, TSHX, VD25, CDP #### [facility] [address] [facility] [place] [address] Abs.Neutrophil (Seg) 4.90 k/uL Normal 2.5-7.0 [facility] Comment on above: Performed By: #### Z FAST, CP, LIPR, MG, TSHX, VD25, CDP #### [facility] [address] [facility] [place] [address] Basophils/100 WBC (Bld) 0 % Normal 0-2 [facility] Comment on above: Performed By: #### Zuly FAST, CP, LIPR, MG, TSHX, VD25, CDP #### [facility] [address] [facility] [place] [address] Eosinophils #/vol (Bld) 0.10 10*3/uL Normal 0.0-0.4 [facility] Comment on above: Performed By: #### Zuly FAST, CP, LIPR, MG, TSHX, VD25, CDP #### [facility] [address] [facility] [place] [address] Eosinophils/100 WBC (Bld) 1 % Normal 0-5 [facility] Comment on above: Performed By: #### Zuly FAST, CP, LIPR, MG, TSHX, VD25, CDP #### [address] [place] [address] Erythrocyte distribution width Ratio (RBC) 16.3 % High 12.1-15.2 [facility] Comment on above: Performed By: #### Z FAST, CP, LIPR, MG, TSHX, VD25, CDP #### [facility] [address] [facility] [place] [address] Hematocrit Volume Fraction (Bld) 36.4 % Normal 36-46 [facility] Comment on above: Performed By: #### Zuly FAST, CP, LIPR, MG, TSHX, VD25, CDP #### [facility] [address] [place] [address] Hemoglobin mass conc (Bld) 11.7 g/dL Low 12.0-16.0 [facility] Comment on above: Performed By: #### Zuly FAST, CP, LIPR, MG, TSHX, VD25, CDP #### [facility] [address] [facility] [place] [address] Lymphocytes #/vol (Bld) 3.30 10*3/uL Normal 1.0-4.8 [facility] Comment on above: Performed By: #### Zuly FAST, CP, LIPR, MG, TSHX, VD25, CDP #### [facility] [address] [facility] [place] [address] Lymphocytes/100 WBC (Bld) 38 % Normal 15-40 [facility] Comment on above: Performed By: #### Zuly FAST, CP, LIPR, MG, TSHX, VD25, CDP #### [facility] [address] [facility] [place] [address] MCH Entitic mass (RBC) 24.3 pg Low 26-34 [facility] Comment on above: Performed By: #### Zuly FAST, CP, LIPR, MG, TSHX, VD25, CDP #### [facility] [address] [facility] [place] [address] MCHC mass conc (RBC) 32.1 g/dL Normal 31-37 [facility] Comment on above: Performed By: #### Zuly FAST, CP, LIPR, MG, TSHX, VD25, CDP #### [facility] [address] [facility] [place] [address] MCV Entitic volume (RBC) 75.6 fL Low 80-100 [facility] Comment on above: Performed By: #### Zuly FAST, CP, LIPR, MG, TSHX, VD25, CDP #### [facility] [address] [facility] [place] [address] Monocytes #/vol (Bld) 0.40 10*3/uL Normal 0.0-1.0 [facility] Comment on above: Performed By: #### Zuly FAST, CP, LIPR, MG, TSHX, VD25, CDP #### [facility] [address] [facility] [place] [address] Monocytes/100 WBC (Bld) 4 % Normal 4-8 [facility] Comment on above: Performed By: #### Zuly FAST, CP, LIPR, MG, TSHX, VD25, CDP #### [facility] [address] [facility] [place] [address] Neutrophil (Seg) 57 % Normal 47-75 [facility] Comment on above: Performed By: #### Zuly FAST, CP, LIPR, MG, TSHX, VD25, CDP #### [address] [place] [address] Platelets #/vol (Bld) 194 10*3/uL Normal 140-450 [facility] Comment on above: Performed By: #### Zuly FAST, CP, LIPR, MG, TSHX, VD25, CDP #### [place] [address] RBC #/vol (Bld) 4.82 10*6/uL Normal 4.0-5.2 [facility] Comment on above: Performed By: #### Zuly FAST, CP, LIPR, MG, TSHX, VD25, CDP #### [facility] [address] [facility] [place] [address] WBC #/vol (Bld) 8.7 10*3/uL Normal 3.5-11.0 [facility] Comment on above: Performed By: #### Zuly FAST, CP, LIPR, MG, TSHX, VD25, CDP #### [place] [address] Abs.Imm.Granulocyt e NOT REPORTED Normal 0.00-0.30 [facility] Comment on above: Performed By: #### Z FAST, CP, LIPR, MG, TSHX, VD25, CDP #### [facility] [address] [facility] [place] [address] Auto Diff Performed NOT REPORTED Normal [facility] Comment on above: Performed By: #### Z FAST, CP, LIPR, MG, TSHX, VD25, CDP #### [facility] [address] [facility] [place] [address] Immature granulocytes #/vol (Bld) NOT REPORTED Normal 0 [facility] Comment on above: Performed By: #### Z FAST, CP, LIPR, MG, TSHX, VD25, CDP #### [facility] [address] [facility] [place] [address] NRBC Automated NOT REPORTED Normal [facility] Comment on above: Performed By: #### Z FAST, CP, LIPR, MG, TSHX, VD25, CDP #### [facility] [address] [facility] [place] [address] Platelet mean volume Entitic volume (Bld) NOT REPORTED Normal 6.0-12.0 [facility] Comment on above: Performed By: #### Z FAST, CP, LIPR, MG, TSHX, VD25, CDP #### [facility] [address] [facility] [place] [address] Platelets #/vol (Bld) NOT REPORTED Normal [facility] Comment on above: Performed By: #### Z FAST, CP, LIPR, MG, TSHX, VD25, CDP #### [facility] [address] [facility] [place] [address] RBC morphology finding Nom (Bld) NOT REPORTED Normal [facility] Comment on above: Performed By: #### Z FAST, CP, LIPR, MG, TSHX, VD25, CDP #### [facility] [address] [facility] [place] [address] WBC Morphology NOT REPORTED Normal [facility] Comment on above: Performed By: #### Z FAST, CP, LIPR, MG, TSHX, VD25, CDP #### [facility] [address] [place] [address] Comp Metabolic Profon 2017 (cont.) Normal [facility] Comment on above: Result Comment: Aver age GFR for 20-29 years old: 116 mL/min/1.73sq m Chronic Kidney Disease: <60 mL/min/1.73sq m Kidney failure: <15 mL/min/1.73sq m eGFR calculated using average adult body mass. Additional eGFR calculator available at: http://[email or web address]_crcl_2012.htm Performed By: #### Zuly FAST, CP, LIPR, MG, TSHX, VD25, CDP #### [facility] [address] [place] [id number] [phone]) Albumin mass conc 4.3 g/dL Normal 3.5-5.2 [facility] Comment on above: Performed By: #### Zuly FAST, CP, LIPR, MG, TSHX, VD25, CDP #### [facility] [address] [place] [address] Alkaline Phos 77 U/L Normal 35-104 [facility] Comment on above: Performed By: #### Zuly FAST, CP, LIPR, MG, TSHX, VD25, CDP #### [facility] [address] [place] [address] ALT enzyme act/vol 28 U/L Normal 5-33 [facility] Comment on above: Performed By: #### Z FAST, CP, LIPR, MG, TSHX, VD25, CDP #### [facility] [address] [place] [address] Anion gap molar conc 11 mmol/L Normal 9-17 [facility] Comment on above: Performed By: #### Z FAST, CP, LIPR, MG, TSHX, VD25, CDP #### [facility] [address] [facility] [place] [address] AST enzyme act/vol 25 U/L Normal <32 [facility] Comment on above: Performed By: #### Z FAST, CP, LIPR, MG, TSHX, VD25, CDP #### [facility] [address] [place] [address] Bilirubin Ql (U) 0.30 mg/dL Normal 0.30-1.20 [facility] Comment on above: Performed By: #### Zuly FAST, CP, LIPR, MG, TSHX, VD25, CDP #### [facility] [address] [place] [address] BUN/CRE Ratio 27 High 9-20 [facility] Comment on above: Performed By: #### Zuly FAST, CP, LIPR, MG, TSHX, VD25, CDP #### [facility] [address] [place] [address] Calcium mass conc 9.2 mg/dL Normal 8.6-10.4 [facility] Comment on above: Performed By: #### Zuly FAST, CP, LIPR, MG, TSHX, VD25, CDP #### [facility] [address] [place] [address] Chloride molar conc 102 mmol/L Normal 98-107 [facility] Comment on above: Performed By: #### Z FAST, CP, LIPR, MG, TSHX, VD25, CDP #### [facility] [address] [place] [address] CO2 molar conc 27 mmol/L Normal 20-31 [facility] Comment on above: Performed By: #### Z FAST, CP, LIPR, MG, TSHX, VD25, CDP #### [facility] [address] [place] [address] Creatinine mass conc 0.45 mg/dL Low 0.50-0.90 [facility] Comment on above: Performed By: #### Z FAST, CP, LIPR, MG, TSHX, VD25, CDP #### [facility] [address] [facility] [place] [address] GFR, Amer >60 Normal >60 [facility] Comment on above: Performed By: #### Z FAST, CP, LIPR, MG, TSHX, VD25, CDP #### [facility] [address] [facility] [place] [address] GFR,non Amer >60 Normal >60 [facility] Comment on above: Performed By: #### Z FAST, CP, LIPR, MG, TSHX, VD25, CDP #### [facility] [address] [facility] [place] [address] Glucose mass conc 80 mg/dL Normal 70-99 [facility] Comment on above: Performed By: #### Z FAST, CP, LIPR, MG, TSHX, VD25, CDP #### [facility] [address] [facility] [place] [address] Potassium molar conc 4.1 mmol/L Normal 3.7-5.3 [facility] Comment on above: Performed By: #### Zuly FAST, CP, LIPR, MG, TSHX, VD25, CDP #### [facility] [address] [facility] [place] [address] Protein mass conc 8.1 g/dL Normal 6.4-8.3 [facility] Comment on above: Performed By: #### Z FAST, CP, LIPR, MG, TSHX, VD25, CDP #### [facility] [address] [facility] [place] [address] Sodium molar conc 140 mmol/L Normal 135-144 [facility] Comment on above: Performed By: #### Z FAST, CP, LIPR, MG, TSHX, VD25, CDP #### [place] [address] [facility] [place] [id number] Urea nitrogen mass conc 12 mg/dL Normal 6-20 [facility] Comment on above: Performed By: #### Z FAST, CP, LIPR, MG, TSHX, VD25, CDP #### [facility] [address] [facility] [place] [id number] Albumin/Globulin mass ratio NOT REPORTED Normal 1.0-2.5 [facility] Comment on above: Performed By: #### Z FAST, CP, LIPR, MG, TSHX, VD25, CDP #### [facility] [address] [facility] [place] [address] Staging: NOT REPORTED Normal [facility] [place] [facility] Comment on above: Performed By: #### Z FAST, CP, LIPR, MG, TSHX, VD25, CDP #### [facility] [address] [facility] [place] [phone] ([phone]) Lipid Profileon 06-09-2018 Cholesterol in HDL mass conc 66 mg/dL Normal >40 [facility] Comment on above: Result Comment: HDL Guidelines: <40 Undesirable 40-59 Borderline >59 Desirable Performed By: #### Z FAST, CP, LIPR, MG, TSHX, VD25, CDP #### [facility] [address] [facility] [place] [address] Cholesterol in LDL mass conc 133 mg/dL High 0-130 [facility] Comment on above: Result Comment: LDL Guidelines: <100 Desirable 100-129 Near to/above Desirable 130-159 Borderline >159 Undesirable Direct (measured) LDL and calculated LDL are not interchangeable tests. Performed By: #### Z FAST, CP, LIPR, MG, TSHX, VD25, CDP #### [facility] [address] [place] [phone] Cholesterol mass conc 217 mg/dL High <200 [facility] Comment on above: Result Comment: Cholesterol Guidelines: <200 Desirable 200-240 Borderline >240 Undesirable Performed By: #### Z FAST, CP, LIPR, MG, TSHX, VD25, CDP #### [facility] [address] [place] [phone] Cholesterol.total/ Cholesterol in HDL mass ratio 3.3 {ratio} Normal <5 [facility] Comment on above: Performed By: #### Z FAST, CP, LIPR, MG, TSHX, VD25, CDP #### [facility] [address] [place] [phone] Triglyceride mass conc 91 mg/dL Normal <150 [facility] Comment on above: Result Comment: Triglyceride Guidelines: <150 Desirable 150-199 Borderline 200-499 High >499 Very high Based on AHA Guidelines for fasting triglyceride, April 2012. Performed By: #### Z FAST, CP, LIPR, MG, TSHX, VD25, CDP #### [facility] [address] [place] [address] Cholesterol in VLDL mass conc NOT REPORTED Normal 08-15 [facility] Comment on above: Performed By: #### Z FAST, CP, LIPR, MG, TSHX, VD25, CDP #### [facility] [address] [place] [address] [phone] Magnesiumon 06-09-2018 Magnesium mass conc 2.3 mg/dL Normal 1.6-2.6 [facility] Comment on above: Performed By: #### Z FAST, CP, LIPR, MG, TSHX, VD25, CDP #### [facility] [address] [place] [address] ([phone]) Patient fasting?on 8 Patient fasting? YES Normal [facility] Comment on above: Performed By: #### Z FAST, CP, LIPR, MG, TSHX, VD25, CDP #### [facility] [address] [place] [address] [phone] TSH w/reflex to FT4on 2017 Thyrotropin Qn 1.44 m[IU]/L Normal 0.30-5.00 [facility] Comment on above: Performed By: #### Z FAST, CP, LIPR, MG, TSHX, VD25, CDP #### [facility] [address] [place] [address] Vitamin D 25 OHon 06-09-2018 Vitamin D 25 OH 13.1 ng/mL Low 30.0-100.[address] [facility] Comment on above: Result Comment: Reference Range: Vitamin D status Range Deficiency <20 ng/mL Mild Deficiency 20-30 ng/mL Sufficiency 30-100 ng/mL Toxicity >100 ng/mL Performed By: #### Z FAST, CP, LIPR, MG, TSHX, VD25, CDP #### [facility] [address] [place] [address] XR CHEST (2 VW)on 06-09-2018 XR CHEST (2 VW) TWO-VIEW CHEST REASON FOR STUDY: Tachycardia. COMPARISON: None. REPORT: Trachea, mediastinum, heart size, diaphragm, and bony elements are intact. No effusion or nodule or pneumothorax is noted. The diaphragm and bony elements are unremarkable. IMPRESSION: Nonacute two-view chest. Interpreted by: Sourav Parisi DO Signed by: Sourav Parisi DO 06/09/18 Final result Normal [facility] Vital Signs Date Time Vital Sign Value Performing Clinician Facility 07-06-2023 16:25-0500 Body height 163.83 cm Alanis Zaidi Other [facility] Other 07-06-2023 16:25-0500 Body mass index (BMI) [Ratio] 37.85 kg/m2 Alanis Zaidi Other [facility] Other 07-06-2023 16:25-0500 Body temperature 100 [degF] Alanis Zaidi Other [facility] Other 07-06-2023 16:25-0500 Body weight 101.61 kg Alanis Zaidi Other [facility] Other 07-06-2023 16:25-0500 Respiratory rate 18 /min Alanis Zaidi Other [facility] Other 07-06-2023 16:25-0500 SaO2% (BldA) [Mass fraction] 99 % Alanis Zaidi Other [facility] Other 10-08-2022 03:06-0400 Body weight 125.6472 kg LUIS MENDOSAZIO [facility] Comment on above: Performed By: #### CBC #### [facility] [address] [place] [address] [address] Brenna Mann Encounters Encounter Date Encounter Type Care Provider Facility Start: 11-08-2023 End: 11-08-2023 ambulatory LUIS DOUG Not Available Start: 08-20-2023 Letter encounter Nabor payan DO Work Phone: [facility] Start: 07-06-2023 End: 07-06-2023 ambulatory Jenna Bansal Facility:[facility] Start: 07-06-2023 End: 07-06-2023 Patient encounter procedure KOTA Bansal Work Phone: [facility] Work Phone: Start: 07-06-2023 End: 07-06-2023 ambulatory KOTA Bansal Work Phone: [facility] Work Phone: Start: 07-06-2023 Office outpatient ne w 20 minutes Alanis Zaidi [facility] Start: 12-24-2022 End: 12-24-2022 ambulatory Jenna Bansal Facility:[facility] Start: 10-26-2022 End: 10-27-[address] [facility] Start: 10-26-2022 End: 10-26-2022 Subsequent hospital visit by physician Jenna Bansal Work Phone: [facility] Start: 10-06-2022 End: 10-07-2022 ambulatory LUISBertha DUTTAO Facility:[facility] Start: 10-06-2022 End: 10-07-2022 ambulatory LUIS DOUG Facility:[facility] Start: 09-14-2022 End: 09-15-[address] JR RITCHIE Facility:[facility] Start: 09-10-2022 End: 09-11-2022 ambulatory LUIS CAMACHO Facility:[facility] Start: 08-29-2022 End: 08-30-[address] JR RITCHIE Facility:[facility] Start: 08-21-2022 End: 08-21-2022 ambulatory JUNE AC Facility:[facility] Start: 08-11-2022 End: 08-12-2022 ambulatory LUIS DOUG Facility:[facility] Start: 07-18-2022 End: 08-16-2022 ambulatory LUIS DOUG Facility:[facility] Start: 07-15-2022 End: 07-16-2022 ambulatory LUIS DOUG Facility:[facility] Start: 07-04-2022 End: 07-04-2022 ambulatory LUIS DOUG Facility:[facility] Start: 03-01-2022 Encounter for genera l adult medical examination without abnormal findings DR CHRISTOPHER HUNTER . [facility] Start: 02-26-2022 End: 02-27-[address] CHRISTOPHER HUNTER . Facility:[facility] Start: 02-26-2022 End: 02-27-2022 Encounter for general adult medical examination without abnormal findings DR CHRISTOPHER HUNTER . Facility: Start: 02-22-2022 End: 02-23-2022 ambulatory REFERRED SELF Facility:[facility] Start: 09-13-2020 End: 09-15-2020 Evaluation and management of inpatient JENNA HICKEY Facility:[facility] Start: 09-04-2020 End: 09-10-2020 ambulatory UNKNOWN PROVIDER Facility:[facility] Start: 09-03-2020 End: 09-03-2020 ambulatory NABOR MARROQUIN [facility] Start: 12-05-2018 ambulatory Facility:C [id number] Start: 11-26-2018 End: 11-27-2018 Patient encounter procedure DAT MILES [facility] Start: 06-28-2018 End: 06-29-2018 Patient encounter procedure [facility] Start: 06-09-2018 End: 06-12-2018 Patient encounter procedure [facility] Start: 06-27-2016 End: 06-27-2016 Telephone encounter Ba Tellez MD Work Phone: [facility] Comment on above: Results Procedures Date Procedure Procedure Detail Performing Clinician Start: 07-06-2023 X-ray of left ankle PA-C Jenna Bansal Work Phone: Start: 10-26-2022 Assay of homocysteine Homer Ramos MD Work Phone: Start: 09-15-2020 H/O: section S/P section Nabor Garcia O Work Phone: Start: 11-26-2018 Ecg routine ecg w/least 12 lds w/i&r DAT EDY Start: 06-28-2018 Rem interrog pm/ldls pm <90 d phys/qhp DAT SNOW Start: 06-28-2018 Echo tthrc r-t 2d w/wom-mode compl spec&colr d DAT [place] Start: 06-09-2018 EKG 12-LEAD DAT NORRISSUSIEERIK Start: 06-09-2018 Radiologic exam chest 2 views DAT SNOW Start: 06-09-2018 Assay of magnesium DTA SNOW Start: 06-09-2018 Blood count complete auto&auto difrntl wbc DAT [place] Start: 06-09-2018 Blood typing serologic abo DAT MILES Start: 06-09-2018 [facility] Start: 06-09-2018 Lipid panel DAT EDY Start: 06-09-2018 TSH WITH REFLEX DAT MILES Start: 06-09-2018 VITAMIN D 25 HYDROXY DAT SNOW Start: 01-11-2018 H/O: section Previous delivery, antepartum condition or complication Jenna Bansal Work Phone: Plan of Treatment Date Care Activity Detail Author Start: 2038 Shingles (RZV) Vacci ne (1 of 2) Shingles (RZV) Vaccine (1 of 2) [facility] Start: 03-01-2032 DTaP/Tdap/Td vaccine (2 - Td or Tdap) DTaP/Tdap/Td vaccine (2 - Td or Tdap) [facility] Start: 03-01-2032 Tetanus vaccination Tetanus (T d or Tdap) Booster [facility] Start: 03-17-2023 COVID-19 Vaccine ( season) COVID-19 Vaccine ( [facility] Start: 03-17-2023 Influenza vaccination Influenza Vacc ine (#1) [facility] Start: 11-16-2022 End: 11-16-2022 Patient encounter procedure 11/16/2022 Routine Perinatology [facility] Start: 09-01-2022 Hepatitis B vaccination Hepati tis B (HBV) Vaccine (3 of 3 - 19+ 3-dose series) [facility] Start: 05-12-2021 COVID-19 Vaccine (3 - Booster for Pfizer series) COVID-19 Vaccine (3 - Booster for Pfizer series) [facility] Start: 03-17-2021 Influenza vaccination INFLUENZ A (Season Ended) [facility] Start: 2018 HPV TESTING HPV TESTING [facility] Start: 2018 Screening for malign ant neoplasm of cervix [facility] Start: 2009 PAP TESTING PAP TESTING [facility] Start: 2009 Screening for malign ant neoplasm of cervix Pap smear [facility] Start: 11-12-2007 Urine microalbumin profile DTAP,TDAP,TD (1 - Tdap) [facility] Start: 2006 HEPATITIS C SCREENING HEPATITIS C [facility] Start: 2006 Hepatitis C screening Hepatitis C [facility] Start: 2006 HIV SCREENING HIV SCREENING [facility] Start: 11-12-2003 HIV screening HIV screen [facility] Start: 2000 Adult depression screening assessment DEPRESSION SCREENING [facility] Start: 2000 Depression Screen Depression Screen [facility] Start: 1989 Varicella vaccine (1 of 2 - 2-dose childhood series) Varicella vaccine (1 of 2 - 2-dose childhood series) [facility] End: 10-26-2022 Alpha Fetoprotein, Maternal [employer] Phone: Comment on above: Once for 1 Occurrenc es starting 10/26/2022 until 10/26/2022 End: 10-26-2022 Antithrombin 3 Activity [employer] Phone: Comment on above: Once for 1 Occurrenc es starting 10/26/2022 until 10/26/2022 End: 10-26-2022 Factor 5 Leiden [employer] Phone: Comment on above: Once for 1 Occurrenc es starting 10/26/2022 until 10/26/2022 Lupus Anticoagulant Lupus Antico agulant Lab Routine 10/26/2022 5:16 PM EDT [employer] Phone: End: 10-26-2022 MTHFR mutation [employer] Phone: Comment on above: Once for 1 Occurrenc es starting 10/26/2022 until 10/26/2022 End: 10-26-2022 Protein C Functional [employer] Phone: Comment on above: Once for 1 Occurrenc es starting 10/26/2022 until 10/26/2022 End: 10-26-2022 Protein S Activity [employer] Phone: Comment on above: Once for 1 Occurrenc es starting 10/26/2022 until 10/26/2022 End: 10-26-2022 Reflex Order [employer] Phone: Comment on above: Once for 1 Occurrenc es starting 10/26/2022 until 10/26/2022 Immunizations Immunization Date Immunization Notes Care Provider [facility] 04-01-2022 hepatitis B vaccine, adult dosage Nabor Marroquin DO Work Phone: [facility] 04-01-2022 Influenza, injectabl e, Madin Rosario Canine Kidney, preservative free, quadrivalent Nabor Stetzer DO Work Phone: [facility] 04-01-2022 influenza virus vacc ine, unspecified formulation Nabor Noyolaer DO Work Phone: [facility] 03-01-2022 hepatitis B vaccine, adult dosage Nabor Marroquin DO Work Phone: [facility] 03-01-2022 measles, mumps and r ubella virus vaccine Nabormic Noyolaer DO Work Phone: [facility] 03-01-2022 tetanus toxoid, redu chalino diphtheria toxoid, and acellular pertussis vaccine, adsorbed Nabor Marroquin DO Work Phone: [facility] 04-16-2017 influenza, injectabl e, quadrivalent, preservative free Nabor Marroquin DO Work Phone: [facility] 02-11-2013 HPV, unspecified formulation Nabor Noyolaer DO Work Phone: [facility] 10-15-2012 HPV, unspecified formulation Nabor Noyolaer DO Work Phone: [facility] 08-13-2012 HPV, unspecified formulation Nabor Noyolaer DO Work Phone: [facility] Payers Date Payer Category Payer Unknown COMMERCIAL INSUR ANCE - OTHER COMMERCIAL INSURANCE OTHER [id number] 2019-Present [phone] [id number] [place] [address] Indemnity [id number] 2018 Medicaid [employer] MEDICA[employer] HMO [id number] 2018-Present [phone] [address] [place] [address] Medicaid HMO [id number] 2017 Unknown [id number] 2016 [place] [id number] 2016-Present Medicaid [id number] 2015 Unknown HOSPITAL/MEDICAL GENERIC MEDICAL GENERIC [id number] 2015-Present Indemnity [id number]. [id number] 2015 Unknown [id number] 1988 Unknown [id number] 2.16.840.1.199700.3.579.2.174 1988 Unknown [id number] 2.16.840.1.346545.3.579.2.174 1988 Unknown [id number] 2.16.840.1.441436.3.579.2.174 1988 Unknown [id number] 2.16.840.1.490570.3.579.2.174 1988 Unknown [id number] 2.16.840.1.446498.3.579.2.174 1988 Unknown [id number] 2.16.840.1.138075.3.579.2.174 1988 Unknown [id number] 2.16.840.1.379257.3.579.2.174 1988 Unknown [id number] 2.16.840.1.511263.3.579.2.732 1988 Unknown [id number] 2.16.840.1.969587.3.579.2.732 1988 Unknown [id number] 2.16.840.1.782446.3.579.2.732 1988 Unknown [id number] 2.16.840.1.200500.3.579.2.732 1988 Unknown [id number] 2.16.840.1.033612.3.579.2.647 1988 Unknown [id number] 2.16.840.1.334404.3.579.2.593 1988 Unknown [id number] 2.16.840.1.027403.3.579.2.593 1988 Unknown [id number] 2.16.840.1.879269.3.579.2.593 1988 Unknown [id number] 2.16.840.1.960784.3.579.2.593 1988 Unknown [id number] 2.16.840.1.016197.3.579.2.593 1988 Unknown [id number] 2.16.840.1.144316.3.579.2.593 1988 Unknown [id number] 2.16.840.1.734624.3.579.2.593 1988 Unknown [id number] 2.16.840.1.321256.3.579.2.593 1988 Unknown [id number] 2.16.840.1.836935.3.579.2.593 1988 Unknown [id number] 2.16.840.1.136850.3.579.2.593 1988 Unknown [id number] 2.16.840.1.456762.3.579.2.593 1988 Unknown [id number] 2.16.840.1.706410.3.579.2.727 1988 Unknown [id number] 2.16.840.1.091771.3.579.2.175 1988 Unknown [id number] 2.16.840.1.337749.3.579.2.1259 1959 Self-pay 1959 Unknown [id number] 1959 Unknown [id number] 1959 Unknown [id number] Unknown [id number] 2.16.840.1.904072.3.579.2.593 Unknown Regular Insurance [id number] Unknown [id number] 2.16.840.1.734450.3.579.2.531 Unknown [id number] 2.16.840.1.631209.3.579.2.531 Social History Date Type Detail Facility Start: 06-16-2016 End: 10-26-2022 Tobacco smoking status NHIS Never smoker [facility] Start: 06-16-2016 End: 10-26-2022 Alcohol intake Current non-drinker of alcohol (finding) [facility] Start: 1990 Sex Assigned At Not on file [facility] Start: 10-26-2022 Tobacco use and exposure Smokeless tobacco non-user [employer] Phone: Start: 07-02-2022 [employer] Phone: Start: 1990 Sex Assigned At Female F [facility] Sex Assigned At [facility] Other Tobacco smoking status FLIS Tobacco smoking consumption unknown [facility] Evaluation note 07-06-2023 Note Date & Type Note Facility 07-06-2023 Evaluation note Encounter Date Diagnosis Assessment Notes Jun, Injury (ICD-10 - T14.90XA) Jun, Moderate left ankle sprain, initial encounter (ICD-10 - S93.402A) XR images and final report reviewed, no acute bony abnormalities, however, soft tissue swelling noted. Placed in aircast today in office. Encouraged RICE therapy discussed- rest extremity, avoid excessive or strenuous activity, complete activity as tolerated; ice area for 15-20 minutes at a time multiple times a day, ensure thin cloth barrier between skin and ice; Splint/GARRICK wrap area; keep extremity elevated. Advised patient to use OTC NSAIDs/Tylenol as directed as needed for discomfort. Instructed patient to follow up with PCP in the next 5-7 days. Immediate eval by ER for warning s/sx as discussed. Patient verbalizes understanding and is agreeable to treatment plan [facility] Other Clinical Note 08-21-2022 Note Date & Type Note Facility 08-21-2022 Note PROCEDURE: US PREG T V, 08/21/2022 5:31 PM EST CLINICAL INDICATIONS: Vaginal bleeding in , first trimester, prior section 8 para 3 COMPARISON: 08/11/2022 TECHNIQUE: Transabdominal, transvaginal first trimester obstetric sonogram, grayscale color and spectral assessment. FINDINGS: There is decreased anatomic resolution. Uterus: Uterus is retroverted. Single living intrauterine is identified. Decidual reaction, gestational sac, embryonic pole is seen. Normal yolk sac is evident. Embryonic cardiac activity is seen with heart rate 186 bpm. Mean gestational sac size: 4.2 cm. Embryonic crown-rump length: 2.39 cm Sonographic gestational age: 9 weeks 1 day +/- 6 days Sonographic EZEKIEL 03/25/2023 3.5 x 2.8 x 1.9 cm perigestational hemorrhage is suspected along the inferior aspect of the gestational sac. Maternal ovaries are not identified. Pelvic free fluid is not seen. IMPRESSION: 1. Retroverted uterus 2. Single living intrauterine , sonographic gestational age of 9 weeks 1 day +/- 6 days 3. Sonographic EZEKIEL 03/25/2023 4. 3.5 cm perigestational hemorrhage along the inferior aspect of the gestational sac, not evident previously. 5. Nonvisualization maternal ovaries bilaterally. 6. No maternal pelvic free fluid Electronically authenticated by: JUNE AC Date: 2022-08-21 18:04 [facility] Clinical Note 11-17-2020 Note Date & Type Note Facility 11-17-2020 Note Outreach team called pt to schedule post- visit. Pt informed that she has transferred care to another hospital system. [facility] Discharge summary note 10-07-2020 Note Date & Type Note Facility 10-07-2020 Note DISCHARGE SUMMARY [address] [address] Gilberto Chaoming Date of : 1990 29 year old female Attending Raúl Date of Admission 09/13/2020 Date of Discharge 09/15/2020 [Principal Hospital Problem (Final Diagnosis)] S/P section [Secondary Hospital Problems] Intrauterine affecting management of mother Hemorrhage Acute Blood Loss Anemia History of prior section Click the Form Tab Delivery Information Delivery Date/Time: 09/14/2020 @ 8:52 AM weight: 7 lb 7.2 oz (3.38 kg) APGARS: 1 Minute: 0 , 5 Minute: 0 Reason for Hospitalization Induction of labor for intrauterine demise Significant Findings U/S: Bedside ultrasound shows vertex presentation, grossly normal fluid, no cardiac or motion confirmed with M-mode, anterior placenta (evaluated previously without evidence of accreta spectrum), no identifiable nuchal cord See birthweight above Hospital Course Admitted 09/13/2020 for induction of labor for intrauterine demise. Made slow chemical cell changer course of 24h. Following epidural placement on HD#2, patient found to be symptomatically hypotensive and required ongoing management from anesthesia. Bedside evaluation at this time revealed cervical dilation of 5cm, minimal chemical cell changer preceding 8 hours. On tocometry, tachysystole appreciate and patient found to have persistent contractile uterus on palpation. Bedside US revealed SIUP in cephalic position, no evidence of hemoperitoneum. Evaluation of anterior uterine wall revealed possible defect at level of previous section scar, without continuous plane of myometrium. Findings concerning for uterine rupture. Decision was thus made to proceed with delivery emergently via section. section was performed on 09/[address] Marroquin and resident Dr. Hutton. Findings were delivery of a demised infant. QBL intraoperatively 2.2 L. Please see dictated operative report for details. Postoperatively and throughout her course, the patient recovered well. Hgb dropped from admission Hgb 12.5 to 6.0. Patient received blood transfusion on POD#1. She progressed through routine postoperative advances without difficulty. She remained afebrile, and vital signs were stable throughout her postoperative course. Physical examination was unremarkable. Abdomen was appropriately tender and the incision was clean, dry and intact without signs of infection. Her lochia was stable and decreasing. She was ambulating without difficulty, voiding without difficulty and passing flatus. She was tolerating a regular diet. On postoperative day # 1, the patient was subsequently considered stable for discharge home. DISCHARGE INSTRUCTIONS: She was given routine per standard medications including Percocet, Motrin, Iron, Colace and vitamins. She declined contraception. She was scheduled for her routine visit in four weeks at [facility]. Discharge instructions included pelvic rest for six weeks and no heavy lifting greater than 10 pounds for six weeks. No future appointments. Carmen Hutton MD, MPH PGY-3, Obstetrics and Gynecology [facility] Note 06-27-2016 Telephone Encounter - Britta Molina RN - 06/27/2016 10:29 AM ESTTelephone Encounter - Rosa Coats - 06/27/2016 8:53 AM EST Note Date & Type Note Facility 06-27-2016 Miscellaneous Notes Returned patient's call and informed her that labs that were drawn at an outside lab are unable to be released to [employer] Patient verbalizes understanding. Kavon Curran called today. : 1990 Allergies: Adhesive Tape (Rosins) (home) Reason for call: patient calling asking if her external labs from [facility] could be released into [employer]. Patient last appointment: Visit date not found The patients preferred pharmacy has been captured for this encounter? not asked Rosa Maddoxr documented in this encounter [facility] Evaluation note Note Date & Type Note Facility Evaluation note [facility] History general Narrative - Reported Note Date & Type Note Facility History general Narrative - Reported Type Surgical History x2 Surgical History Oral surgery Hospitalization History See above [facility] Other Summary Purpose Family History No Family History Records FoundNo Family History Records FoundNo Family History Records FoundNo Family History Records FoundNo Family History Records FoundNo Family History Records FoundNo Family History Records FoundNo Family History Records FoundNo Family History Records Found Advance Directives No Advanced Directives Records Found Advance Directive Response Recorded Date/ Time Advance Directives No May 22, 2017 6:03pm Latest Code Status on File Code Status Date Activated Date Inactivated Comments Full Code 09/14/2020 10:22 AM 09/15/2020 8:58 PM Question Answer Comments Documentation of decision process for this code status: Patient and surrogate unable or unavailable to discuss. There is no previous documentation of code status. Defaulting to Full Code Code Status History Code Status Date Activated Date Inactivated Comments Full Code 09/13/2020 9:08 AM 09/14/2020 10:22 AM Question Answer Comments Documentation of decision process for this code status: Discussed with patient or surrogate. This is the code status chosen by the patient/surrogate. Additional Source Comments INFORMATION SOURCE (unrecogn ized section and content) DATE CREATED AUTHOR 11/20/2018 [facility] DATE CREATED AUTHOR AUTHOR'S ORGANIZ ATION 12/07/2018 [facility] DATE CREATED AUTHOR AUTHOR'S ORGANIZ ATION 08/20/2021 [facility] DATE CREATED AUTHOR AUTHOR'S ORGANIZ ATION 03/09/[address] [facility] DATE CREATED AUTHOR AUTHOR'S ORGANIZ ATION 10/09/2022 [facility] DATE CREATED AUTHOR AUTHOR'S ORGANIZ ATION 12/25/2022 [facility] DATE CREATED AUTHOR AUTHOR'S ORGANIZ ATION 02/16/2023 [facility] DATE CREATED AUTHOR AUTHOR'S ORGANIZ ATION 08/25/2023 [facility] DATE CREATED AUTHOR AUTHOR'S ORGANIZ ATION 11/09/2023 [facility] EPIC Source Comments (unrecognize d section and content) In the event this informatio n is protected by the Federal Confidentiality of Alcohol and Drug Abuse Patient Records regulations: The Federal rules restrict any use of the information to criminally investigate or prosecute any alcohol or drug abuse patient.[facility] Reason for Visit (unrecogniz ed section and content) Reason Onset Date Comments Results 06/27/2016 Care Teams (unrecognized sec tion and content) [employer] Teacher Relationship Specialty Start Date End Date Jenna Bansal [address] [place] [id number] PCP - General Family Medicine 12/14/17 Team Status: Active Member Role Status Dates Jenna Bansal PA-C Primary Care Provider Active Team Status: Inactive Member Role Status Dates Jenna Bansal PA-C Primary Care Provider Active Alanis Zaidi APRN Attending Provider Active [employer] Teacher Relationship Specialty Start Date End Date Nabor Marroquin DO [address] [place] [address] [id number] Physician Obstetrics/Gynecology 06/19/20 Duncan Nguyễn MD [address] [place] [address] [id number] Physician Neuropathology 09/18/20 Yudy Agudelo MD [address] [place] [id number] Resident Obstetrics/Gynecology 10/16/20 Goals (unrecognized section and content) Goals may be documented in a n alternate sectionNo Information FOR RECORDS PERTAINING TO PATIENTS WHO ARE OR HAVE BEEN ENROLLED IN A CHEMICAL DEPENDENCY/SUBSTANCEABUSE PROGRAM, SOME INFORMATION MAY BE OMITTED. This clinical summary was aggregated from multiple sources. Caution should be exercised in using it in the provision of clinical care. This summary normalizes information from multiple sources, and as a consequence, information in this document may materially change the coding, format and clinical context of patient data. In addition, data may be omitted in some cases. CLINICAL DECISIONS SHOULD BE BASED ON THE PRIMARY CLINICAL RECORDS. [facility]. provides no warranty or guarantee of the accuracy or completeness of information in this document.
[2023-11-28 12:10] LABS: Pap IG (Image Guided) Note (.)
== END 2023-11-22 20:31 | disposition home or self-care (01) ==
LOC: LAB 20:30
PROVIDERS: Visit Provider Obstetrics & Gynecology
DX: Z01.419 Encounter for gynecological examination (general) (routine) without abnormal findings (principal); R87.615 Unsatisfactory cytologic smear of cervix
CPT/HCPCS: G0145

== ENCOUNTER 2023-12-25 06:46 | Outpatient (OUT) | payer OTHER, SELFPAY ==
--- OUTSIDE RECORDS SUMMARY | 2023-12-25 06:51 | XMS_ITS ---
Patient Summarization (C-CDA 2.1 CCD) Created on: December 25, 2023 VANESSA CHAOClaire : 1990 Sex: Female Author Organization Sample organization Care Team Providers Care Drug Counselor Name Role Phone GINGER, DAT S Referring [...] Care Provider UnavailLidia Goodrich Primary Care Provider [phone] NABOR MARROQUIN Referring Unavailable PROVIDER, UNKNOWN Attending [...] ABDULAZIM Attending Unavailable DOUG, LUIS Consulting Unavailable ELSA Schneider, DR WHITE Primary Care Unavailable DOUG, LUIS Attending Unavailable DOUG, LUIS Admitting Unavailable JUNE AC Consulting Unavailable DIAB ., LEYDA Attending Unavailable DIAB ., LEYDA Admitting Unavailable ELSA ., DR WHITE Primary Care Unavailable DIAB ., LEYDA Consulting Unavailable DOUG, LUIS Consulting Unavailable ELSA ., DR WHITE Primary Care Unavailable DOUG, LUIS Attending Unavailable DOUG, LUIS Admitting Unavailable GRE[place], DR JR Da Silva Consulting Unavailable ELSA ., DR WHITE Primary Care Unavailable DOUG, [...] Unavailable ZIEBER, DR LINO Funk Consulting Unavailable GRE[place], DR JR Da Silva Consulting Unavailable HOY ., DR WHITE Primary Care Unavailable DOUG, LUIS Attending Unavailable DOUG, LUIS Admitting Unavailable DOUG, LUIS Consulting Unavailable DOUG, LUIS Consulting Unavailable HOY ., DR WHITE Primary Care Unavailable DOUG, LUIS Attending Unavailable DOUG, LUIS Admitting Unavailable ZIEBER, DR LINO Funk Consulting Unavailable Jenna Bansal Primary Care Provider [phone] HOMER RAMOS Referring Unavailable JENNA BANSAL Primary Care Unavailable KOTA Bansal Primary Care Provider TUCKER Zaidi Attending Provider [phone] Alanis Zaidi Unavailable Nabor Marroquin DO Unavailable Gopi ENGLISH, Duncan Lange Unavailable Magnus ENGLISH, Yudy Unavailable Jenna Bansal Primary Care Unavailable Alanis Zaidi Admitting Unavailable Alanis Zaidi Attending Unavailable Jenna Bansal Primary Care Unavailable Doug, Luis Admitting Unavailable Luis Camacho Attending Unavailable LUIS CAMACHO Attending Unavailable LUIS CAMACHO Attending Unavailable Allergies Allergy Classification Reported Allergen(s) Allergy Type Date of Onset Reaction(s) Facility Adhesive Tape (1 source) Adhesive Tape Substance Allergy 6 Rash [facility] (2 sources) BANDAGE TAPE; Translations: [BANDAGE TAPE] Propensity to adverse reactions (disorder) 6 Rash [facility] Rep[facility] (3 sources) Adhesive Tape; Translations: [ADHESIVE TAPE] Propensity to adverse reactions (disorder) 8 [facility] Rep[facility] (1 source) Adhesive bandage Drug allergy (disorder) [facility] Rep[facility] (1 source) tape adhesive Propensity to adverse reactions rash [employer] Other Encounters Encounter Date Encounter Type Care Provider Facility Start: 11-22-2023 End: 11-22-2023 ambulatory LUIS DOUG Not Available Start: 11-08-2023 End: 11-08-2023 ambulatory LUIS DOUG Not Available Start: 08-20-2023 Letter encounter Nabor payan DO Work Phone: [facility] Start: 07-06-2023 End: 07-06-2023 ambulatory Jenna Bansal Facility:[facility] Start: 07-06-2023 End: 07-06-2023 Patient encounter procedure KOTA Bansal Work Phone: [facility] Work Phone: Start: 07-06-2023 End: 07-06-2023 ambulatory KOTA Bansal Work Phone: [facility] Work Phone: Start: 07-06-2023 Office outpatient ne w 20 minutes Alanis Zaidi [facility] Start: 12-24-2022 End: 12-24-2022 ambulatory Jenna Bansal Facility:[facility] Start: 10-26-2022 End: 10-27-2022 ambulatory HOMER C PERNI [facility] Start: 10-26-2022 End: 10-26-2022 Subsequent hospital visit by physician Jenna Bansal Work Phone: [facility] Start: 10-06-2022 End: 10-07-2022 ambulatory LUIS DOUG Facility:[facility] Start: 10-06-2022 End: 10-07-2022 ambulatory LUIS [...] abnormal findings DR CHRISTOPHER HUNTER . [facility] Start: 02-26-2022 End: 02-27-[address] CHRISTOPHER HUNTER . Facility:[facility] Start: 02-26-2022 End: 02-27-2022 Encounter for general adult medical examination without abnormal findings DR CHRISTOPHER HUNTER . Facility:[facility] Start: 02-22-2022 End: 02-23-2022 ambulatory REFERRED SELF Facility:[facility] Start: 09-13-2020 End: 09-15-2020 Evaluation and management of inpatient JENNA PAULILE Facility:[facility] Start: 09-04-2020 End: 09-10-2020 ambulatory UNKNOWN PROVIDER Facility:[facility] Start: 09-03-2020 End: 09-03-2020 ambulatory NABOR MARROQUIN Facility:[facility] Start: 12-05-2018 ambulatory Facility:C [id number] Start: 11-26-2018 End: 11-27-2018 Patient encounter procedure DAT [place] [facility] Start: 06-28-2018 End: 06-29-2018 Patient encounter procedure DAT [place] [facility] Start: 06-09-2018 End: 06-12-2018 Patient encounter procedure [facility] Start: 06-27-2016 End: 06-27-2016 Telephone encounter Ba Tellez MD Work Phone: [facility] Comment on above: Results Immunizations Immunization Date Immunization Notes Care Provider Fa [facility] 04-01-2022 hepatitis B vaccine, adult dosage Nabor Stetzer DO Work Phone: [facility] 04-01-2022 Influenza, injectabl e, Madin Rosario Canine Kidney, preservative free, quadrivalent Nabor Stetzer DO Work Phone: [facility] 04-01-2022 influenza virus vacc ine, unspecified formulation Nabor Stetzer DO Work Phone: [facility] 03-01-2022 hepatitis B vaccine, adult dosage Nabor Stetzer DO Work Phone: [facility] 03-01-2022 measles, mumps and r ubella virus vaccine Nabor Stetzer DO Work Phone: [facility] 03-01-2022 tetanus toxoid, redu chalino diphtheria toxoid, and acellular pertussis vaccine, adsorbed Nabor Stetzer DO Work Phone: [facility] 04-16-2017 influenza, injectabl e, quadrivalent, preservative free Nabor Stetzer DO Work Phone: [facility] 02-11-2013 HPV, unspecified formulation Nabor Stetzer DO Work Phone: [facility] 10-15-2012 HPV, unspecified formulation Nabor Stetzer DO Work Phone: [facility] 08-13-2012 HPV, unspecified formulation Nabor Stetzer DO Work Phone: [facility] Medications Current Medications Medication Drug Class(es) Dates [...] Tablet 3 07/30/2020 Active polyethylene glycol 3350 52230 mg powder for oral solution (1 source) [...] PO) Take by mouth 0 Active sennosides, shelter 8.6 mg oral tablet (1 source) Start: [...] Vitamin D (1 source) Vitamin D Not-Taking/PRN Payers Date Payer Category Payer Unknown COMMERCIAL INSUR ANCE - OTHER COMMERCIAL INSURANCE OTHER [id number] 2019-Present [phone] [id number] [place] [address] Indemnity [id number] 2018 Medicaid NAZIASOREN LI MEDICAID HMO [id number] 2018-Present [phone] [address] [place] [address] Medicaid HMO [id number] 2017 Unknown [id number] 2016 Medicaid [place] [id number] 2016-Present Medicaid [id number]. [id number] 2015 Unknown HOSPITAL/MEDICAL GENERIC MEDICAL GENERIC [id number] 2015-Present Indemnity [id number]. [id number] 2015 Unknown [id number] 1988 Unknown [id number] 2.16840.1.483695.3.579.2.174 1988 Unknown [id number] 2.16840.1.860775.3.579.2.174 1988 Unknown [id number] 2.16.840.1.392562.3.579.2.174 1988 Unknown [id number] 2.16.840.1.472950.3.579.2.174 1988 Unknown [id number] 2.16840.1.220498.3.579.2.174 1988 Unknown [id number] 2.16.840.1.943118.3.579.2.174 1988 Unknown [id number] 2.16.840.1.987184.3.579.2.174 1988 Unknown [id number] 2.16.840.1.852294.3.579.2.732 1988 Unknown [id number] 2.16.840.1.162064.3.579.2.732 1988 Unknown [id number] 2.16.840.1.741156.3.579.2.732 1988 Unknown [id number] 2.16.840.1.812251.3.579.2.732 1988 Unknown [id number] 2.16.840.1.101610.3.579.2.647 1988 Unknown [id number] 2.16.840.1.586346.3.579.2.593 1988 Unknown [id number] 2.16.840.1.483166.3.579.2.593 1988 Unknown [id number] 2.16.840.1.059411.3.579.2.593 1988 Unknown [id number] 2.16.840.1.464965.3.579.2.593 1988 Unknown [id number] 2.16.840.1.668746.3.579.2.593 1988 Unknown [id number] 2.16.840.1.220754.3.579.2.593 1988 Unknown [id number] 2.16.840.1.347664.3.579.2.593 1988 Unknown [id number] 2.16.840.1.894773.3.579.2.593 1988 Unknown [id number] 2.16.840.1.270484.3.579.2.593 1988 Unknown [id number] 2.16.840.1.036226.3.579.2.593 1988 Unknown [id number] 2.16.840.1.081944.3.579.2.593 1988 Unknown [id number] 2.16.840.1.092908.3.579.2.727 1988 Unknown [id number] 2.16.840.1.127080.3.579.2.175 1988 Unknown [id number] 2.16.840.1.513591.3.579.2.1259 1988 Unknown [id number] 2.16.840.1.509731.3.579.2.1259 1959 Self-pay 1959 Unknown [id number] 1959 Unknown [id number] 1959 Unknown [id number] Unknown [id number] 2.16.840.1.573733.3.579.2.593 Unknown Regular Insurance [id number] Unknown [id number] 2.16.840.1.659451.3.579.2.531 Unknown [id number] 2.16.840.1.183058.3.579.2.531 Plan of Treatment Date Care Activity Detail Author Start: 2038 Shingles (RZV) Vacci ne (1 of 2) Shingles (RZV) Vaccine (1 of 2) [facility] Start: 03-01-2032 DTaP/Tdap/Td vaccine (2 - Td or Tdap) DTaP/Tdap/Td vaccine (2 - Td or Tdap) [facility] Start: 03-01-2032 Tetanus vaccination Tetanus (T d or Tdap) Booster [facility] Start: 03-17-2023 COVID-19 Vaccine ( season) COVID-19 Vaccine ( season) [facility] Start: 03-17-2023 Influenza vaccination Influenza Vacc ine (#1) [facility] Start: 11-16-2022 End: 11-16-2022 Patient encounter procedure 11/16/2022 Routine Perinatology [facility] Start: 09-01-2022 Hepatitis B vaccination Hepati tis B (HBV) Vaccine (3 of 3 - 19+ 3-dose series) [facility] Start: 05-12-2021 COVID-19 Vaccine (3 - Booster for Pfizer series) COVID-19 Vaccine (3 - Booster for Pfizer series) [facility] Start: 03-17-2021 Influenza vaccination INFLUENZ A (Season Ended) [facility] Start: 2018 HPV TESTING HPV TESTING [facility] Start: 2018 Screening for malign ant neoplasm of cervix [facility] Start: 2009 PAP TESTING PAP TESTING [facility] Start: 2009 Screening for malign ant neoplasm of cervix [facility] Start: 11-12-2007 Urine microalbumin profile DTAP,TDAP,TD (1 - Tdap) [facility] Start: 2006 HEPATITIS C SCREENING HEPATITIS C SC REENING [facility] Start: 2006 Hepatitis C screening Hepatitis C sc reen [facility] Start: 2006 HIV SCREENING HIV SCREENING [facility] Start: 11-12-2003 HIV screening HIV screen [facility] [email or web address] Start: 2000 Adult depression screening assessment DEPRESSION SCREENING [facility] Start: 2000 Depression Screen Depression Screen [facility] [employer] Start: 1989 Varicella vaccine (1 of 2 - 2-dose childhood series) Varicella vaccine (1 of 2 - 2-dose childhood series) [facility] [employer] [facility] End: 10-26-2022 Alpha Fetoprotein, Maternal [employer] Phone: Comment on above: Once for 1 Occurrenc es starting 10/26/2022 until 10/26/2022 End: 10-26-2022 Antithrombin 3 Activity [employer] Phone: Comment on above: Once for 1 Occurrenc es starting 10/26/2022 until 10/26/2022 End: 10-26-2022 Factor 5 Leiden [employer] Phone: Comment on above: Once for 1 Occurrenc es starting 10/26/2022 until 10/26/2022 Lupus Anticoagulant Lupus Antico agulant Lab Routine 10/26/2022 5:16 PM EDT [employer] Phone: End: 10-26-2022 MTHFR mutation [employer] Phone: Comment on above: Once for 1 Occurrenc es starting 10/26/2022 until 10/26/2022 End: 10-26-2022 Protein C Functional [employer] Phone: Comment on above: Once for 1 Occurrenc es starting 10/26/2022 until 10/26/2022 End: 10-26-2022 Protein S Activity [employer] Phone: Comment on above: Once for 1 Occurrenc es starting 10/26/2022 until 10/26/2022 End: 10-26-2022 Reflex Order [employer] Phone: Comment on above: Once for 1 Occurrenc es starting 10/26/2022 until 10/26/2022 Problems Active Problems Problem Classification Problem Date [...] source) Other placental disorders, first trimester; Translations: [OTH PLACENTAL DISORDER FIRST TRI] Onset: 09-02-2022 Episodic [...] second trimester, not applicable or unspecified; Translations: [OTH D/O AMNIO FL MEMB 2ND TRI UNS] [...] childbirth and the puerperium] Onset: 10-26-2022 Episodic Procedures Date Procedure Procedure Detail Performing Clinician Start: 07-06-2023 X-ray of left ankle PA-C Jenna Bansal Work Phone: Start: 10-26-2022 Assay of homocysteine Homer Ramos MD Work Phone: Start: 09-15-2020 H/O: section S/P section Nabor Garcia O Work Phone: Start: 11-26-2018 Ecg routine ecg w/least 12 lds w/i&r DAT MILES Start: 06-28-2018 Rem interrog pm/ldls pm <90 d phys/qhp DAT MILES Start: 06-28-2018 Echo tthrc r-t 2d w/wom-mode compl spec&colr d DAT MILES Start: 06-09-2018 EKG 12-LEAD DAT MILES Start: 06-09-2018 Radiologic exam chest 2 views DAT MILES Start: 06-09-2018 Assay of magnesium DAT MILES Start: 06-09-2018 Blood count complete auto&auto difrntl wbc DAT MILES Start: 06-09-2018 Blood typing serologic abo DAT MILES Start: 06-09-2018 Comprehensive metabolic panel DAT [facility]ES Start: 06-09-2018 Lipid panel DAT [facility]ES Start: 06-09-2018 TSH WITH REFLEX DAT [facility]ES Start: 06-09-2018 VITAMIN D 25 HYDROXY DAT MILES Start: 01-11-2018 H/O: section Previous delivery, antepartum condition or complication Jenna Bansal Work Phone: Results Test Name Value Interpretation Reference Range Facility XR ankle LT min 3V*on 2022 XR ankle LT min 3V* [facility] [address] [place] [address] XRay Report Signed Patient: Kavon Swain MR#: [id number] : 1990 Acct:[id number] Age/Sex: 32 / F ADM Date: 07/06/23 Loc: XDUCLY Room: Type: [facility] Attending Dr: Alanis Zaidi APRN Copies to: [...] Vira Pulliam M.D.07/06/2023 5:18 PM Dictation Location: [place] [address] Transcribed By: [facility] 07/06/231717 Dictated By: Vira Pulliam MD 07/06/231715 Signed By: 07/06/23 171 Normal [facility] XR ankle LT min 3V* [facility] [employer] Other XR ankle LT min 3V* [facility] [employer] Other XR ankle LT min 3V* [address] [place] [address] [employer] Other XR ankle LT min 3V* [place] [address] [facility] [employer] Other XR ankle LT min 3V* XRay Report [facility] [employer] Other XR ankle LT min 3V* Signed [facility] [employer] Other XR ankle LT min 3V* Patient: Kavon Swain MR#: [employer] Other XR ankle LT min 3V* [id number] [employer] Other XR ankle LT min 3V* : 1990 Acct:[id number] [employer] Other XR ankle LT min 3V* Age/Sex: 32 / F ADM Date: 07/06/23 [employer] Other XR ankle LT min 3V* Loc: XDUCLY Room: Type: [facility] [employer] Other XR ankle LT min 3V* Attending Dr: Alanis Zaidi [facility] [employer] Other XR ankle LT min 3V* Copies to: Alanis Zaidi APRN [employer] Other XR ankle LT min 3V* Ordering Provider: Alanis Zaidi APRN [employer] Other XR ankle LT min 3V* Date of Service: 07/06/23 [employer] Other XR ankle LT min 3V* XR/XR ankle LT min 3V*: Injury [employer] Other XR ankle LT min 3V* LEFT ANKLE - 3 views [employer] Other XR ankle LT min 3V* CLINICAL DATA: Twisting injury left ankle 12 days ago with continued pain and bruising. [employer] Other XR ankle LT min 3V* COMPARISON: None [employer] Other XR ankle LT min 3V* AP, lateral and oblique views were obtained. There is no evidence of fracture or dislocation. [employer] Other XR ankle LT min 3V* The talar dome is intact. There is diffuse soft tissue swelling. [employer] Other XR ankle LT min 3V* XR/XR ankle LT min 3V* [employer] Other XR ankle LT min 3V* IMPRESSION: [employer] Other XR ankle LT min 3V* NO ACUTE BONY INJURY. [employer] Other XR ankle LT min 3V* Impression dictated by: Vira Pulliam M.D.07/06/2023 5:18 PM [employer] Other XR ankle LT min 3V* Dictation Location: [place] [address] [employer] Other XR ankle LT min 3V* Transcribed By: [facility] 07/06/23 [facility] [employer] Other XR ankle LT min 3V* Dictated By: Vira Pulliam MD 07/06/23 [facility] [employer] Other XR ankle LT min 3V* Signed By: [employer] Other XR ankle LT min 3V* 07/06/23 [facility] [employer] Other Glucose Tolerance 3 Houron 0 12-24-2022 Glucose Tolerance 3 Hour Normal [facility] Comment on above: Order Comment: FASTI NG [...] HOUR NOT ESTABLISHED < 140 PERFORMED BY: [place] [address] PATHOLOGIST SOLID STATE TESTER SEHLBI CHILEL M.D. Performed By: #### G TT3 #### [place] [address] [place] Lupus Anticoagulanton 2022 Dilute Gregory Viper Negative Normal [facility]UP [facility] Comment on above: Performed By: #### P ROSAC, LUPPRO, HOCYS, PROCAC, AT3A #### [address] [address] Superintendent Building: Nile Cesar MD #### AF5MUT, AMTHFR #### [address] [address] Superintendent Building: Thang Hull MD #### AAFPM #### [address] [address] Superintendent Building: Nile Cesar MD [address] [id number] Superintendent Building: Thang Hull MD Protein S Activityon 023 Protein S Activity 76 % Normal 59-130 [facility] Comment on above: Result Comment: Patients [...] of Factor VIII. Performed By: #### P SARWATC, LUPPRO, HOCYS, PROCAC, AT3A #### [address] [address] Superintendent Building: Nile Cesar MD #### AF5MUT, AMTHFR #### [facility] [address] [place] [phone] Superintendent Building: Thang Hull MD #### AAFPM #### [address] [address] Superintendent Building: Nile Cesar MD [address] [id number] Superintendent Building: Thang Hull MD Antithrombin III Jalen 11-02 Antithrombin III Act 94 % Normal 83-122 [facility] Comment on above: Result Comment: Patients receiving Hirudin may have a falsely decreased Antitrombin III Activity. Performed By: #### P ROSAC, LUPPRO, HOCYS, PROCAC, AT3A #### [facility] [address] [place] [address] Superintendent Building: Nile Cesar MD #### AF5MUT, AMTHFR #### [facility] [address] [place] [address] Superintendent Building: Thang Hull MD #### AAFPM #### [facility] [address] [place] [address] Superintendent Building: Nile Cesar MD [facility] [address] [place] [address] Superintendent Building: Thang Hull MD Protein C Activityon 023 Protein C Activity >150 Normal >80 [facility] Comment on above: Result Comment: Patients [...] LUPPRO, HOCYS, PROCAC, AT3A #### [facility] [address] [place] [address] Superintendent Building: Nile Cesar MD #### AF5MUT, AMTHFR #### [facility] [address] [place] [address] Superintendent Building: Thang Hull MD #### AAFPM #### [facility] [address] [place] [address] Superintendent Building: Nile Cesar MD [facility] [address] [place] [address] Superintendent Building: Thang Hull MD Factor V Mutationon 11-02-19 23 F 5 SPECIMEN Whole Blood Normal [facility] Comment on above: Performed By: #### P ROSAC, LUPPRO, HOCYS, PROCAC, AT3A #### [facility] [address] [place] [address] Superintendent Building: Nile Cesar MD #### AF5MUT, AMTHFR #### [facility] [address] [place] [address] Superintendent Building: Thang Hull MD #### AAFPM #### [facility] [address] [place] [address] Superintendent Building: Nile Cesar MD [facility] [address] [place], [place] [phone] Superintendent Building: Thang Hull MD FACTOR 5 MUTATION Negative Normal [facility] Comment on above: Result Comment: (NOT E) Indication for testing: Assess genetic risk for thrombosis. NEGATIVE: The factor V Leiden variant, c.1601G>A; p.[id number], was not detected. This does not exclude [...] function in the F5 gene variant c.1601G>A (p.[id number]). Legacy nomenclature: [id number] (1691G>A) CLINICAL SENSITIVITY: 20-50 percent of individuals with an isolated VTE have the FVL variant. METHODOLOGY: Polymerase chain reaction and fluorescence monitoring. ANALYTICAL SENSITIVITY AND SPECIFICITY: 99 percent. LIMITATIONS: Diagnostic errors can occur due to rare sequence variations. F5 gene mutations, other than p.[id number], will not be detected. This test was developed and its performance characteristics determined by [facility]. It has not been cleared or approved by the [place] Food and Drug Administration. This test was performed in a CLIA certified laboratory and is intended for clinical purposes. Counseling and informed consent are recommended for genetic testing. Consent forms are available online. Performed by [facility], [address] [place] [id number] [email or web address], Mike Stratton MD, PHD, Lab. Director Performed By: #### P ROSAC, LUPPRO, HOCYS, PROCAC, AT3A #### [facility] [address] [place] [address] Superintendent Building: Nile Cesar MD #### AF5MUT, AMTHFR #### [facility] [address] [place] [address] Superintendent Building: Thang Hull MD #### AAFPM #### [facility] [address] [place] [address] [phone] Superintendent Building: Nile Cesar MD [facility] [address] [place] [address] Superintendent Building: Thang Hull MD AFP, Maternalon 10-29-2022 Determined by Ultrasound Normal [facility] Comment on above: Performed By: #### P ROSAC, LUPPRO, HOCYS, PROCAC, AT3A #### [facility] [address] [place] [address] Superintendent Building: Nile Cesar MD #### AF5MUT, AMTHFR #### [facility] [address] [place] [address] Superintendent Building: Thang Hull MD #### AAFPM #### [facility] [address] [place] [address] Superintendent Building: Nile Cesar MD [facility] [address] [place] [address] Superintendent Building: Thang Hull MD Due Date SEE NOTE Normal [facility] Comment on above: Result Comment: Resu lts for Estimated Due Date: 03 24 23 Performed By: #### P ROSAC, LUPPRO, HOCYS, PROCAC, AT3A #### [facility] [address] [place] [address] Superintendent Building: Nile Cesar MD #### AF5MUT, AMTHFR #### [facility] [address] [place] [address] Superintendent Building: Thang Hull MD #### AAFPM #### [facility] [address] [place] [address] Superintendent Building: Nile Cesar MD [facility] [address] [place] [address] Superintendent Building: Thang Hull MD Family History No Normal [facility] Comment on above: Performed By: #### P ROSAC, LUPPRO, HOCYS, PROCAC, AT3A #### [facility] [address] [place] [address] Superintendent Building: Nile Cesar MD #### AF5MUT, AMTHFR #### [facility] [address] [place] [address] Superintendent Building: Thang Hull MD #### AAFPM #### [facility] [address] [place] [address] Superintendent Building: Nile Cesar MD [facility] [address] [place] [address] Superintendent Building: Thang Hull MD Gestat Age (exact) 18 wks, 5 days Normal [facility] Comment on above: Performed By: #### P ROSAC, LUPPRO, HOCYS, PROCAC, AT3A #### [facility] [address] [place] [address] Superintendent Building: Nile Cesar MD #### AF5MUT, AMTHFR #### [facility] [address] [place] [address] Superintendent Building: Thang Hull MD #### AAFPM #### [facility] [address] [place] [address] Superintendent Building: Nile Cesar MD [facility] [address] [place] [address] Superintendent Building: Thang Hull MD Ins Req Matern Diab No Normal [facility] Comment on above: Performed By: #### P ROSAC, LUPPRO, HOCYS, PROCAC, AT3A #### [facility] [address] [place] [address] Superintendent Building: Nile Cesar MD #### AF5MUT, AMTHFR #### [facility] [address] [place] [address] Superintendent Building: Thang Hull MD #### AAFPM #### [facility] [address] [place] [address] Superintendent Building: Nile Cesar MD [facility] [address] [place] [address] Superintendent Building: Thang Hull MD Interpretation Screen Neg Normal [facility] Comment on above: Result Comment: (NOT E) INTERPRETATION: SCREEN NEGATIVE for open spina bifida Neural Tube Defects (NTD) Negative Pre-Test Post-Test Cutoff Neural Tube Defects Risks 1:1030 1:509 1:250 Comments: The risk of an open neural tube defect is less than the screening cut-off. This test was developed and its performance characteristics determined by [facility]. It has not been cleared or approved by the [place] Food and Drug Administration. This test was performed in a CLIA certified laboratory and is intended for clinical purposes. Performed By: #### P ROSAC, LUPPRO, HOCYS, PROCAC, AT3A #### [facility] [address] [place] [address] Superintendent Building: Nile Cesar MD #### AF5SHILA, AMTHFR #### [facility] [address] [place] [address] Superintendent Building: Thang Hull MD #### AAFPM #### [address] [address] Superintendent Building: Nile Cesar MD [address] [address] Superintendent Building: Thang Hull MD [age] Normal [facility] Comment on above: Performed By: #### P ROSAC, LUPPRO, HOCYS, PROCAC, AT3A #### [facility] [address] [place] [address] Superintendent Building: Nile Cesar MD #### AF5MUT, AMTHFR #### [facility] [address] [place] [address] Superintendent Building: Thang Hull MD #### AAFPM #### [facility] [address] [place] [address] Superintendent Building: Nile Cesar MD [facility] [address] [place] [address] Superintendent Building: Thang Hull MD Maternal Race Nonblack [facility] Comment on above: Performed By: #### P ROSAC, LUPPRO, HOCYS, PROCAC, AT3A #### [facility] [address] [place] [address] Superintendent Building: Nile Cesar MD #### AF5MUT, AMTHFR #### [facility] [address] [place] [address] Superintendent Building: Thang Hull MD #### AAFPM #### [facility] [address] [place] [address] Superintendent Building: Nile Cesar MD [facility] [address] [place] [address] Superintendent Building: Thang Hull MD Maternal Weight 285.0 lbs. [facility] Comment on above: Performed By: #### P ROSAC, LUPPRO, HOCYS, PROCAC, AT3A #### [facility] [address] [place] [address] Superintendent Building: Nile Cesar MD #### AF5MUT, AMTHFR #### [facility] [address] [place] [address] Superintendent Building: Thang Hull MD #### AAFPM #### [facility] [address] [place] [address] Superintendent Building: Nile Cesar MD [facility] [address] [place] [address] Superintendent Building: Thang Hull MD MoM for AFP 2.18 [facility] Comment on above: Performed By: #### P ROSAC, LUPPRO, HOCYS, PROCAC, AT3A #### [facility] [address] [place] [address] Superintendent Building: Nile Cesar MD #### AF5MUT, AMTHFR #### [facility] [address] [place] [address] Superintendent Building: Thang Hull MD #### AAFPM #### [facility] [address] [address] Superintendent Building: Nile Cesar MD [facility] [address] [place] [address] Superintendent Building: Thang Hull MD Number of Fetuses [place] Normal [facility] Comment on above: Performed By: #### P ROSAC, LUPPRO, HOCYS, PROCAC, AT3A #### [facility] [address] [place] [address] Superintendent Building: Nile Cesar MD #### AF5MUT, AMTHFR #### [facility] [address] [place] [address] Superintendent Building: Thang Hull MD #### AAFPM #### [address] [address] Superintendent Building: Nile Cesar MD [facility] [address] [place] [address] Superintendent Building: Thang Hull MD Patient's AFP 70 ng/mL Normal [facility] Comment on above: Performed By: #### P ROSAC, LUPPRO, HOCYS, PROCAC, AT3A #### [facility] [address] [place] [address] Superintendent Building: Nile Cesar MD #### AF5MUT, AMTHFR #### [facility] [address] [place] [address] Superintendent Building: Thang Hull MD #### AAFPM #### [address] [address] Superintendent Building: Nile Cesar MD [address] [address] Superintendent Building: Thang Hull MD Smoking Unknown [facility] Comment on above: Performed By: #### P ROSAC, LUPPRO, HOCYS, PROCAC, AT3A #### [address] [address] Superintendent Building: Nile Cesar MD #### AF5MUT, AMTHFR #### [facility] [address] [place] [address] Superintendent Building: Thang Hull MD #### AAFPM #### [address] [address] Superintendent Building: Nile Cesar MD [address] [address] Superintendent Building: Thang Hull MD Specimen See Note [facility] Comment on above: Result Comment: (NOT E) Initial sample Performed by [facility], [address] [place] [id number] [email or web address], Mike Stratton MD, PHD, Lab. Director Performed By: #### P ROSAC, LUPPRO, HOCYS, PROCAC, AT3A #### [address] [address] Superintendent Building: Nile Cesar MD #### AF5MUT, AMTHFR #### [address] [address] Superintendent Building: Thang Hull MD #### AAFPM #### [address] [address] Superintendent Building: Nile Cesar MD [address] [address] Superintendent Building: Thang Hull MD MTHFR Gene Mutationon 2022 MTHFR 1286 A>C Mut Heterozygous Normal [facility] Comment on above: Performed By: #### P ROSAC, LUPPRO, HOCYS, PROCAC, AT3A #### [facility] [address] [place] [address] Superintendent Building: Nile Cesar MD #### AF5MUT, AMTHFR #### [facility] [address] [place] [address] Superintendent Building: Thang Hull MD #### AAFPM #### [address] [address] Superintendent Building: Nile Cesar MD [address] [address] Superintendent Building: Thang Hull MD MTHFR 655C>T Mut Heterozygous Normal [facility] Comment on above: Performed By: #### P ROSAC, LUPPRO, HOCYS, PROCAC, AT3A #### [facility] [address] [place] [address] Superintendent Building: Nile Cesar MD #### AF5MUT, AMTHFR #### [facility] [address] [place] [address] Superintendent Building: Thang Hull MD #### AAFPM #### [address] [address] Superintendent Building: Nile Cesar MD [facility] [address] [place] [address] Superintendent Building: Thang Hull MD MTHFR Interpretation See Note Normal [facility] Comment on above: Result Comment: (NOT E) Indication for testing: Determine genetic contribution to hyperhomocysteinemia. Compound Heterozygous MTHFR c.665C>T/c.1286A>C: One copy of each of the two MTHFR gene variants tested, c.665C>T (previously designated C677T) and c.1286A>C (previously designated [id number]) were detected. This genotype may be associated [...] has an effect on cardiovascular disease. The [employer] Practice Guidelines indicate [...] a contributing factor to hyperhomocysteinemia. Variants Tested: c.665C>T(p.Ulk995Zwx) and c.1286A>C(p.Fcj775Ohe). (legacy names C677T and H8340D, respectively). Clinical Sensitivity: Undefined; hyperhomocysteinemia is caused [...] developed and its performance characteristics determined by [facility]. It has not been cleared or approved by the US Food and Drug Administration. This test was performed in a CLIA certified laboratory and is intended for clinical purposes. Counseling and informed consent are recommended for genetic testing. Consent forms are available online. Performed by [facility], [address] [facility] [place] [address] [email or web address], Mike Stratton MD, PHD, Lab. Director Performed By: #### P ROSAC, LUPPRO, HOCYS, PROCAC, AT3A #### [facility] [address] [place] [address] Superintendent Building: Nile Cesar MD #### AF5MUT, AMTHFR #### [facility] [address] [place] [address] Superintendent Building: Thang Hull MD #### AAFPM #### [address] [address] Superintendent Building: Nile Cesar MD [address] [address] Superintendent Building: Thang Hull MD MTHFR SPECIMEN Whole Blood Normal [facility] Comment on above: Performed By: #### P ROSAC, LUPPRO, HOCYS, PROCAC, AT3A #### [address] [address] Superintendent Building: Nile Cesar MD #### AF5MUT, AMTHFR #### [address] [address] Superintendent Building: Thang Hull MD #### AAFPM #### [address] [address] Superintendent Building: Nile Cesar MD [address] [address] Superintendent Building: Thang Hull MD Lupus Anticoagulanton 2022 Anticardiolipin IgA 1.4 APL Normal 0.0-14.0 [facility] Comment on above: Result Comment: Reference Range: <14.0 Negative 14.0-20.0 Equivocal >20.0 Positive When results are Equivocal, it is recommended to retest after 4-6 weeks. Performed By: #### P ROSAC, LUPPRO, HOCYS, PROCAC, AT3A #### [address] [address] Superintendent Building: Nile Cesar MD #### AF5MUT, AMTHFR #### [facility] [address] [place] [address] [place] [address] Superintendent Building: Thang Hull MD #### LEONCIOM #### [address] [address] Superintendent Building: Nile Cesar MD [address] [address] Superintendent Building: Thang Hull MD Anticardiolipin IgG 0.9 GPL Normal 0.0-10.0 [facility] Comment on above: Result Comment: Reference Range: <10.0 Negative 10.0-40.0 Equivocal >40.0 Positive Performed By: #### P ROSAC, LUPPRO, HOCYS, PROCAC, AT3A #### [address] [address] Superintendent Building: Nile Cesar MD #### AF5MUT, AMTHFR #### [address] [address] Superintendent Building: Thang Hull MD #### AMOL #### [address] [address] Superintendent Building: Nile Cesar MD [address] [phone] Superintendent Building: Thang Hull MD Anticardiolipin IgM 3.6 MPL Normal 0.0-10.0 [facility] Comment on above: Result Comment: Reference Range: <10.0 Negative 10.0-40.0 Equivocal >40.0 Positive Performed By: #### P ROSAC, LUPPRO, HOCYS, PROCAC, AT3A #### [address] [address] Superintendent Building: Nile Cesar MD #### AF5MUT, AMTHFR #### [facility] [address] [place] [address] Superintendent Building: Thang Hull MD #### AAFPM #### [facility] [address] [place] [address] Superintendent Building: Nile Cesar MD [facility] [address] [place] [address] Superintendent Building: Thang Hull MD AFP, Maternalon 10-27-2022 Current Smoking INFORMATION NOT PROVIDED [facility] Comment on above: Performed By: #### P ROSAC, LUPPRO, HOCYS, PROCAC, AT3A #### [facility] [address] [place] [address] Superintendent Building: Nile Cesar MD #### AF5MUT, AMTHFR #### [facility] [address] [place] [address] Superintendent Building: Thang Hull MD #### AAFPM #### [address] [address] Superintendent Building: Nile Cesar MD [facility] [address] [place] [address] Superintendent Building: Thang Hull MD [facility] Comment on above: Performed By: #### P ROSAC, LUPPRO, HOCYS, PROCAC, AT3A #### [facility] [address] [place] [address] Superintendent Building: Nile Cesar MD #### AF5MUT, AMTHFR #### [facility] [address] [place] [address] Superintendent Building: Thang Hull MD #### AAFPM #### [facility] [address] [place] [address] Superintendent Building: Nile Cesar MD [facility] [address] [place] [address] Superintendent Building: Thang Hull MD [facility] Comment on above: Performed By: #### P ROSAC, LUPPRO, HOCYS, PROCAC, AT3A #### [facility] [address] [place] [address] Superintendent Building: Nile Cesar MD #### AF5MUT, AMTHFR #### [facility] [address] [place] [address] Superintendent Building: Thang Hull MD #### AAFPM #### [facility] [address] [place] [address] Superintendent Building: Nile Cesar MD [facility] [address] [place] [address] Superintendent Building: Thang Hull MD Donor Egg INFORMATION NOT PROVIDED [facility] Comment on above: Performed By: #### P ROSAC, LUPPRO, HOCYS, PROCAC, AT3A #### [facility] [address] [place] [address] Superintendent Building: Nile Cesar MD #### AF5MUT, AMTHFR #### [facility] [address] [place] [address] Superintendent Building: Thang Hull MD #### AAFPM #### [address] [address] Superintendent Building: Nile Cesar MD [facility] [address] [place] [address] Superintendent Building: Thang Hull MD Estimated Due Date 03/24/2023 [facility] Comment on above: Performed By: #### P ROSAC, LUPPRO, HOCYS, PROCAC, AT3A #### [facility] [address] [place] [address] Superintendent Building: Nile Cesar MD #### AF5MUT, AMTHFR #### [facility] [address] [place] [address] Superintendent Building: Thang Hull MD #### AAFPM #### [facility] [address] [place] [address] Superintendent Building: Nile Cesar MD [facility] [address] [place] [address] Superintendent Building: Thang Hull MD Family History NO Normal [facility] Comment on above: Performed By: #### P ROSAC, LUPPRO, HOCYS, PROCAC, AT3A #### [facility] [address] [place] [address] Superintendent Building: Nile Cesar MD #### AF5MUT, AMTHFR #### [facility] [address] [place] [address] Superintendent Building: Thang Hull MD #### AAFPM #### [facility] [address] [place] [address] Superintendent Building: Nile Cesar MD [facility] [address] [place] [address] Superintendent Building: Thang Hull MD In Vitro Fertalizat INFORMATION NOT PROVIDED [facility] Comment on above: Performed By: #### P ROSAC, LUPPRO, HOCYS, PROCAC, AT3A #### [facility] [address] [place] [address] Superintendent Building: Nile Cesar MD #### AF5MUT, AMTHFR #### [facility] [address] [place] [address] Superintendent Building: Thang Hull MD #### AAFPM #### [address] [address] Superintendent Building: Nile Cesar MD [facility] [address] [place] [address] Superintendent Building: Thang Hull MD Maternal date 1990 [facility] Comment on above: Performed By: #### P ROSAC, LUPPRO, HOCYS, PROCAC, AT3A #### [facility] [address] [place] [address] Superintendent Building: Nile Cesar MD #### AF5MUT, AMTHFR #### [facility] [address] [place] [address] Superintendent Building: Thang Hull MD #### AAFPM #### [facility] [address] [place] [address] Superintendent Building: Nile Cesar MD [facility] [address] [place] [address] Superintendent Building: Thang Hull MD Maternal Weight 285 Normal [facility] Comment on above: Performed By: #### P ROSAC, LUPPRO, HOCYS, PROCAC, AT3A #### [facility] [address] [place] [address] Superintendent Building: Nile Cesar MD #### AF5MUT, AMTHFR #### [facility] [address] [place] [address] Superintendent Building: Thang Hull MD #### AAFPM #### [facility] [address] [place] [address] Superintendent Building: Nile Cesar MD [facility] [address] [place] [address] Superintendent Building: Thang Hull MD Monochorionic Twins INFORMATION NOT PROVIDED Normal [facility] Comment on above: Performed By: #### P ROSAC, LUPPRO, HOCYS, PROCAC, AT3A #### [facility] [address] [place] [address] Superintendent Building: Nile Cesar MD #### AF5MUT, AMTHFR #### [facility] [address] [place] [address] Superintendent Building: Thang Hull MD #### AAFPM #### [facility] [address] [place] [address] Superintendent Building: Nile Cesar MD [facility] [address] [place] [address] Superintendent Building: Thang Hull MD Patient Weight Units LBS [facility] Comment on above: Performed By: #### P ROSAC, LUPPRO, HOCYS, PROCAC, AT3A #### [facility] [address] [place] [address] Superintendent Building: Nile Cesar MD #### AF5MUT, AMTHFR #### [facility] [address] [place] [address] Superintendent Building: Thang Hull MD #### AAFPM #### [address] [address] Superintendent Building: Nile Cesar MD [facility] [address] [place] [address] Superintendent Building: Thang Hull MD Race (Maternal) WHITE [facility] Comment on above: Performed By: #### P ROSAC, LUPPRO, HOCYS, PROCAC, AT3A #### [facility] [address] [place] [address] Superintendent Building: Nile Cesar MD #### AF5MUT, AMTHFR #### [facility] [address] [place] [address] Superintendent Building: Thang Hull MD #### AAFPM #### [facility] [address] [place] [address] Superintendent Building: Nile Cesar MD [facility] [address] [place] [address] Superintendent Building: Thang Hull MD Repeat Specimen NO [facility] Comment on above: Performed By: #### P ROSAC, LUPPRO, HOCYS, PROCAC, AT3A #### [facility] [place] [address] Superintendent Building: Nile Cesar MD #### AF5MUT, AMTHFR #### [facility] [address] [place] [address] Superintendent Building: Thang Hull MD #### AAFPM #### [address] [address] Superintendent Building: Nile Cesar MD [facility] [address] [place] [address] Superintendent Building: Thang Hull MD Valproic/Carbamaze p INFORMATION NOT PROVIDED Normal [facility] Comment on above: Performed By: #### P ROSAC, LUPPRO, HOCYS, PROCAC, AT3A #### [address] [address] Superintendent Building: Nile Cesar MD #### AF5MUT, AMTHFR #### [facility] [address] [place] [address] Superintendent Building: Thang Hull MD #### AAFPM #### [address] [address] Superintendent Building: Nile Cesar MD [facility] [address], [place] [id number] Superintendent Building: Thang Hull MD Homocysteineon 10-26-2022 Homocysteine 6.7 umol/L NINF - 15.0 umol/L [facility] Homocysteine 6.7 umol/L Normal <15.0 [facility] Comment on above: Performed By: #### P ROSAC, LUPPRO, HOCYS, PROCAC, AT3A #### [facility] [address] [place] [address] Superintendent Building: Nile Cesar MD #### AF5MUT, AMTHFR #### [facility] [address] [place] [address] Superintendent Building: Thang Hull MD #### AAFPM #### [address] [address] Superintendent Building: Nile Cesar MD [facility] [address] [place] [address] Superintendent Building: MD ARMINDA Briones [facility] Lupus Anticoagulanton 2022 aPTT Coag (Bld) [Time] 25.8 s Normal 23.0-36.5 [facility] Comment on above: Performed By: #### P ROSAC, LUPPRO, HOCYS, PROCAC, AT3A #### [facility] [employer] [address] [place] [address] Superintendent Building: Nile Cesar MD #### AF5MUT, AMTHFR #### [facility] [address] [place] [address] Superintendent Building: Thang Hull MD #### LEONCIOM #### [address] [address] Superintendent Building: Nile Cesar MD [address] [phone] Superintendent Building: Thang Hull MD INR Coag (PPP) [Relative time] 0.9 {INR} Normal [facility] Comment on above: Result Comment: Therapeutic Range: Moderate Anticoagulant Intensity: INR = 2.0-3.0 High Anticoagulant Intensity: INR = 2.5-3.5 Performed By: #### P ROSAC, LUPPRO, HOCYS, PROCAC, AT3A #### [facility] [employer] [address] [place] [address] Superintendent Building: Nile Cesar MD #### AF5MUT, AMTHFR #### [facility] [address] [place] [address] Superintendent Building: Thang Hull MD #### AAFPM #### [address] [address] Superintendent Building: Nile Cesar MD [facility] [address] [place] [address] Superintendent Building: Thang Hull MD PT Coag (PPP) [Time] 11.7 s Normal 11.7-14.9 [facility] Comment on above: Performed By: #### P ROSAC, LUPPRO, HOCYS, PROCAC, AT3A #### [address] [address] Superintendent Building: Nile Cesar MD #### AF5MUT, AMTHFR #### [address] [phone] Superintendent Building: Thang Hull MD #### AAFPM #### [address] [address] Superintendent Building: Nile Cesar MD [address] [phone] Superintendent Building: Thang Hull MD Romel Kiton 10-26-2022 Romel Kit Forwarded to [facility] Comment on above: Performed By: #### N ATER #### [address] [address] Superintendent Building: Nile Cesar MD AFP MATERNAL FOR SPINA BIFID Aon 10-08-2022 AFP MoM 1.69 [facility] Comment on above: Performed By: #### C BC #### [facility] [address] [address] [address] Brenna Mann AFP Value 39.4 ng/mL [facility] Comment on above: Performed By: #### C BC #### [facility] [address] [place], [place] [address] Dr. Brenna Mann AFP, Serum for Spina Bifida Report Normal [facility] Comment on above: Performed By: #### C BC #### [facility] [address] [place] [address] Dr. Brenna Mann Comment Comment Normal [facility] Comment on above: Result Comment: Jesús Goodman, Ph.D., [facility] Director . References: Available Upon Request. . Multiples Of Median Cutoffs For AFP Elevations [place] 2.5 Black 2.8 IDD 2.0 Twins 4.5 Abbreviation Definitions IDD - Insulin Dep Diabetes OSBR - Open Spina Bifida Risk . For further inquiries contact [facility] at [phone]. . This test was developed and its performance characteristics determined by [facility]. It has not been cleared or approved by the Food and Drug Administration. Performed By: #### C BC #### [facility] [address] [place] [address] Dr. Brenna Ji Age Collection Date 15.7 weeks Normal [facility] Comment on above: Performed By: #### C BC #### [facility] [address] [place] [address] Dr. Brenna Mann Gestat, Age Based on As provided Normal [facility] Comment on above: Result Comment: Reca lculations are not recommended when gestational dating by LMP and ultrasound are within 10 days. Performed By: #### C BC #### [facility] [address] [place] [address] Dr. Brenna Mann Insulin Dep Diabetes No Normal [facility] Comment on above: Performed By: #### C BC #### [facility] [address] [place] [address] Dr. Brenna Mann Interpretation Comment Normal [facility] Comment on above: Result Comment: Inte [...] Customer Services to discuss available options. The [place] recommends amniocentesis be offered to women age 35 and older. Performed By: #### C BC #### [facility] [address] [address] [address] Brenna Mann [age] [facility] Comment on above: Performed By: #### C BC #### [facility] [address] [address] [address] Brenna Mann Multiple Gestation No Normal [facility] Comment on above: Performed By: #### C BC #### [facility] [address] [address] [address] Brenna Mann OSBR Risk 1 [place] [address] [facility] Comment on above: Performed By: #### C BC #### [facility] [address] [address] [address] Brenna Mann PDF . [facility] Comment on above: Performed By: #### C BC #### [facility] [address] [address] [address] Brenna Mann Race [facility] Comment on above: Performed By: #### C BC #### [facility] [address] [address] [address] Brenna Mann Test Results: Negative [facility] Comment on above: Performed By: #### C BC #### [facility] [address] [address] [address] Brenna Mann US PREG LIMITEDon 10-06-2022 [...] by: LINO ARROYO Date: 2022-10-06 15:09 Normal [facility] US PREG TVon 09-14-2022 US [...] by: JR RITCHIE Date: 2022-09-14 17:18 Normal [facility] HEP B SURFACE ANTIGEN SCREEN on 09-11-2022 HBsAg Screen Negative Normal Negative [facility] Comment on above: Performed By: #### H BSANS #### [facility] [address] [place] [address] Dr. Brenna Mann HEPATITIS C VIRUS AB W/ REFL EX QUANTon 09-11-2022 HCV AB Non-Reactive Normal Non Reactive [facility] Comment on above: Performed By: #### [id number] #### [facility] [address] [place] [address] Dr. Brenna Mann Interpretation: Comment Normal [facility] Comment on above: Result Comment: Not infected with HCV unless early or acute infection is suspected (which may be delayed in an immunocompromised individual), or other evidence exists to indicate HCV infection. Performed By: #### 4 [id number] #### [facility] [address] [place] [address] Dr. Brenna Mann HIV 1 AND 2 WITH REFLEXon HIV Screen 4th Generation wRfx Non-Reactive Normal Non Reactive [facility] Comment on above: Result Comment: HIV Negative HIV-1/HIV-2 antibodies and HIV-1 p24 antigen were NOT detected. There is no laboratory evidence of HIV infection. Performed By: #### H IV12 #### [facility] [address] [place] [address] Dr. Brenna Mann RPR QUANTon 09-11-2022 Rapid Plasma Reagin, Quant Non-Reactive Normal NonRea<1:1 [facility] Comment on above: Result Comment: Plea se Note: This test does not meet current guidelines for screening and diagnosis of syphilis. This test is intended for following treatment response in patients being treated for syphilis infection. To screen for syphilis infection, a reflex cascade that includes both RPR and a treponema-specific assay should be utilized, such as Treponema pallidum (Syphilis) Screening [place] (449929) or Rapid Plasma Reagin (RPR) Test With Reflex to Quantitative RPR and Confirmatory Treponema pallidum Antibodies (613105). Performed By: #### 4 [id number] #### [facility] [address] [place] [address] Dr. Brenna Mann RUBELLA AB IGGon 09-11-2022 Rubella Antibodies, IgG 2.41 index Normal Immune >0.99 [facility] Comment on above: Result Comment: Non- immune <0.90 Equivocal 0.90 - 0.99 Immune >0.99 Performed By: #### C BC #### [facility] [address] [place] [address] Dr. Brenna Mann CBC AUTO DIFFon 09-10-2022 BASO # 0.0 103/ul Normal 0.0-0.1 [facility] Comment on above: Performed By: #### C BC #### [facility] [address] [place] [address] Dr. Brenna Mann Basophils/100 WBC (Bld) 0.3 % Normal 0.2-2.0 [facility] Comment on above: Performed By: #### C BC #### [facility] [address] [place] [address] Dr. Brenna Mann EO # 0.3 103/ul Normal 0.0-0.7 [facility] Comment on above: Performed By: #### C BC #### [facility] [address] [place] [address] Dr. Brenna Mann Eosinophils/100 WBC (Bld) 2.7 % Normal 0.9-7.0 [facility] Comment on above: Performed By: #### C BC #### [facility] [address] [place] [address] Dr. Brenna Mann Erythrocyte distribution width (RBC) [Ratio] 13.8 % Normal 11.0-15.0 [facility] Comment on above: Performed By: #### C BC #### [facility] [address] [address] [address] Brenna Mann Hematocrit (Bld) [Volume fraction] 37.4 % Normal 36.0-48.0 [facility] Comment on above: Performed By: #### C BC #### [facility] [address] [address] [address] Brenna Mann Hemoglobin (Bld) [Mass/Vol] 12.2 g/dL Normal 12.0-16.0 [facility] Comment on above: Performed By: #### C BC #### [facility] [address] [place] [address] Dr. Brenna Mann IG # 0.10 10e3/ul Critically high 0.00-0.03 [facility] Comment on above: Performed By: #### C BC #### [facility] [address] [place] [address] Dr. Brenna Mann IG % 1.1 % Critically high 0.0-0.5 [facility] Comment on above: Performed By: #### C BC #### [facility] [address] [place] [address] Dr. Brenna Mann LYMPH # 2.4 103/ul Normal 1.2-3.8 [facility] Comment on above: Performed By: #### C BC #### [facility] [address] [place] [address] Dr. Brenna Mann Lymphocytes/100 WBC (Bld) 25.3 % Normal 20.5-60.0 [facility] Comment on above: Performed By: #### C BC #### [facility] [address] [place] [address] Dr. Brenna Mann MANUAL DIFF REQ NO Normal [facility] Comment on above: Performed By: #### C BC #### [facility] [address] [place] [address] Dr. Brenna Mann MCH (RBC) [Entitic mass] 27.8 pg Normal 26.7-34.0 [facility] Comment on above: Performed By: #### C BC #### [facility] [address] [address] [address] Brenna Mann MCHC (RBC) [Mass/Vol] 32.6 g/dL Normal 29.9-35.2 [facility] Comment on above: Performed By: #### C BC #### [facility] [address] [place] [address] Dr. Brenna Mann MCV (RBC) [Entitic vol] 85.2 fL Normal 81.0-99.0 [facility] Comment on above: Performed By: #### C BC #### [facility] [address] [place] [address] Dr. Brenna Mann MONO # 0.4 103/ul Normal 0.3-0.8 [facility] Comment on above: Performed By: #### C BC #### [facility] [address] [place] [address] Dr. Brenna Mann Monocytes/100 WBC (Bld) 3.7 % Normal 1.7-12.0 [facility] Comment on above: Performed By: #### C BC #### [facility] [address] [place] [address] Dr. Brenna Mann NEUT # 6.3 103/ul Normal 1.4-6.5 [facility] Comment on above: Performed By: #### C BC #### [facility] [address] [place] [address] Dr. Brenna Mann Neutrophils/100 WBC (Bld) 66.9 % Normal 43.0-75.0 [facility] Comment on above: Performed By: #### C BC #### [facility] [address] [place] [address] Dr. Brenna Mann Platelet mean volume (Bld) [Entitic vol] 12.1 fL Normal 9.5-13.5 [facility] Comment on above: Performed By: #### C BC #### [facility] [address] [place] [address] Dr. Brenna Mann PLT 172 103/ul Normal 150-450 [facility] Comment on above: Performed By: #### C BC #### [facility] [address] [address] [address] Brenna Mann RBC 4.39 106/ul Normal 4.20-5.40 [facility] Comment on above: Performed By: #### C BC #### [facility] [address] [address] [address] Brenna Mann WBC 9.3 103/ul Normal 4.0-11.0 [facility] Comment on above: Performed By: #### C BC #### [facility] [address] [place] [address] Dr. Brenna Mann CULTURE URINEon 09-10-2022 CULTURE URINE Culture Observations : NO GROWTH. Normal [facility] Comment on above: Performed By: #### C BC #### [facility] [address] [place] [address] Dr. Brenna Mann GLYCOHEMOGLOBIN A1Con 2022 ADA RECOMMENDATION SEE BELOW Normal [facility] Comment on above: Result Comment: ADA RECOMMENDED LIMIT 4.0 - 6.0 ADA THERAPEUTIC TARGET < 7.0 ACTION SUGGESTED > 7.0 Performed By: #### [id number] #### [facility] [address] [place] [address] Dr. Brenna Mann Glucose [Mass/Vol] 100 mg/dL Normal [facility] [place] Comment on above: Performed By: #### 4 [id number] #### [facility] [address] [place] [address] Dr. Brenna Mann HbA1c (Bld) [Mass fraction] 5.1 % Normal 4.5-6.2 [facility] Comment on above: Performed By: #### 4 [id number] #### [facility] [address] [place] [address] Dr. Brenna Mann ROMEL BOX TEST PT SEND OUTo n 09-10-2022 SENT TO REF LAB 09/10/2022 Normal [facility] Comment on above: Performed By: #### 4 [id number] #### [facility] [address] [place] [address] Dr. Brenna Mann TSHon 09-10-2022 TSH 0.568 uIU/mL Normal 0.358-3.740 [facility] Comment on above: Performed By: #### T SH #### [facility] [address] [place] [address] Dr. Brenna Mann TYPE AND SCREENon 09-10-2022 TYPE AND SCREEN Negative Normal [facility] Comment on above: Performed By: #### C BC #### [facility] [address] [place] [address] Dr. Brenna Mann US PREG TVon 08-29-2022 [...] JR RITCHIE Date: 2022-08-29 16:12 Normal [facility] CBC AUTO DIFFon 08-21-2022 BASO # 0.0 103/ul Normal 0.0-0.1 [facility] Comment on above: Performed By: #### [id number] #### [facility] [address] [place] [address] Dr. Brenna Mann Basophils/100 WBC (Bld) 0.3 % Normal 0.2-2.0 [facility] Comment on above: Performed By: #### 4 [id number] #### [facility] [address] [place] [address] Dr. Brenna Mann EO # 0.1 103/ul Normal 0.0-0.7 [facility] Comment on above: Performed By: #### 4 [id number] #### [facility] [address] [place] [address] Dr. Brenna Mann Eosinophils/100 WBC (Bld) 1.2 % Normal 0.9-7.0 [facility] Comment on above: Performed By: #### 4 [id number] #### [facility] [address] [place] [address] Dr. Brenna Mann Erythrocyte distribution width (RBC) [Ratio] 14.3 % Normal 11.0-15.0 [facility] Comment on above: Performed By: #### 4 [id number] #### [facility] [address] [place] [address] Dr. Brenna Mann Hematocrit (Bld) [Volume fraction] 40.4 % Normal 36.0-48.0 [facility] Comment on above: Performed By: #### 4 [id number] #### [facility] [address] [place] [address] Dr. Brenna Mann Hemoglobin (Bld) [Mass/Vol] 12.9 g/dL Normal 12.0-16.0 [facility] Comment on above: Performed By: #### 4 [id number] #### [facility] [address] [place] [address] Dr. Brenna Mann IG # 0.08 10e3/ul Critically high 0.00-0.03 [facility] Comment on above: Performed By: #### 4 [id number] #### [facility] [address] [place] [address] Dr. Brenna Mann IG % 0.8 % Critically high 0.0-0.5 [facility] Comment on above: Performed By: #### 4 [id number] #### [facility] [address] [place] [address] Dr. Brenna Mann LYMPH # 2.8 103/ul Normal 1.2-3.8 [facility] Comment on above: Performed By: #### 4 [id number] #### [facility] [address] [place] [address] Dr. Brenna Mann Lymphocytes/100 WBC (Bld) 28.8 % Normal 20.5-60.0 [facility] Comment on above: Performed By: #### 4 [id number] #### [facility] [address] [place] [address] Dr. Brenna Mann MANUAL DIFF REQ NO Normal [facility] Comment on above: Performed By: #### 4 [id number] #### [facility] [address] [place] [address] Dr. Brenna Mann MCH (RBC) [Entitic mass] 28.4 pg Normal 26.7-34.0 [facility] Comment on above: Performed By: #### 4 [id number] #### [facility] [address] [place] [address] Dr. Brenna Mann MCHC (RBC) [Mass/Vol] 31.9 g/dL Normal 29.9-35.2 [facility] Comment on above: Performed By: #### 4 [id number] #### [facility] [address] [place] [address] Dr. Brenna Mann MCV (RBC) [Entitic vol] 88.8 fL Normal 81.0-99.0 [facility] Comment on above: Performed By: #### 4 [id number] #### [facility] [address] [place] [address] Dr. Brenna Mann MONO # 0.7 103/ul Normal 0.3-0.8 [facility] Comment on above: Performed By: #### 4 [id number] #### [facility] [address] [place] [address] Dr. Brenna Mann Monocytes/100 WBC (Bld) 6.9 % Normal 1.7-12.0 [facility] Comment on above: Performed By: #### 4 [id number] #### [facility] [address] [place] [address] Dr. Brenna Mann NEUT # 6.1 103/ul Normal 1.4-6.5 [facility] Comment on above: Performed By: #### 4 [id number] #### [facility] [address] [place] [address] Dr. Brenna Mann Neutrophils/100 WBC (Bld) 62.0 % Normal 43.0-75.0 [facility] Comment on above: Performed By: #### 4 [id number] #### [facility] [address] [address] [address] Brenna Mann Platelet mean volume (Bld) [Entitic vol] 12.0 fL Normal 9.5-13.5 [facility] Comment on above: Performed By: #### 4 [id number] #### [facility] [address] [place] [address] Dr. Brenna Mann PLT 191 103/ul Normal 150-450 [facility] Comment on above: Performed By: #### 4 [id number] #### [facility] [address] [address] [address] Brenna Mann RBC 4.55 106/ul Normal 4.20-5.40 [facility] Comment on above: Performed By: #### 4 [id number] #### [facility] [address] [place] [address] Dr. Brenna Mann WBC 9.8 103/ul Normal 4.0-11.0 [facility] Comment on above: Performed By: #### 4 [id number] #### [facility] [address] [place] [address] Dr. Brenna Mann PREG QUANT HCGon 08-21-2022 HCG QUANT 73109 mIU/mL Normal [facility] Comment on above: Performed By: #### P REGQNT #### [facility] [address] [place] [address] Dr. Brenna Mann HCG RANGE SEE BELOW Normal [facility] Comment on above: Result Comment: 5-50 0.2-1 WEEK 50-500 1-2 WEEKS 100-5,000 2-3 WEEKS 500-10,000 3-4 WEEKS 1,000-50,000 4-5 WEEKS 10,000-100,000 5-6 WEEKS 15,000-200,000 6-8 WEEKS 10,000-100,000 2-3 MONTHS Performed By: #### P REGQNT #### [facility] [address] [place] [address] Dr. Brenna Mann PROF 14(COMP METB)on 023 Albumin [Mass/Vol] 2.8 g/dL Critically low 3.4-5.0 [facility] Comment on above: Performed By: #### 4 [id number] #### [facility] [address] [address] [address] Brenna Mann Albumin/Globulin [Mass ratio] 0.6 {ratio} Normal [facility] Comment on above: Performed By: #### 4 [id number] #### [facility] [address] [address] [address] Brenna Mann ALP [Catalytic activity/Vol] 53 U/L Normal 46-116 [facility] Comment on above: Performed By: #### 4 [id number] #### [facility] [address] [address] [address] Brenna Mann ALT [Catalytic activity/Vol] 17 U/L Normal 14-59 [facility] Comment on above: Performed By: #### 4 [id number] #### [facility] [address] [address] [address] Brenna Mann Anion gap [Moles/Vol] 14.2 mmol/L Normal [facility] Comment on above: Performed By: #### 4 [id number] #### [facility] [address] [address] [address] Brenna Mann AST [Catalytic activity/Vol] 21 U/L Normal 15-37 [facility] Comment on above: Performed By: #### 4 [id number] #### [facility] [address] [address] [address] Brenna Mann Bilirubin [Mass/Vol] 0.1 mg/dL Critically low 0.2-1.0 [facility] Comment on above: Performed By: #### 4 [id number] #### [facility] [address] [address] [address] Brenna Mann Calcium [Mass/Vol] 8.5 mg/dL Normal 8.5-10.1 [facility] Comment on above: Performed By: #### 4 [id number] #### [facility] [address] [address] [address] Brenna Mann Chloride [Moles/Vol] 99 mmol/L Normal 98-107 [facility] Comment on above: Performed By: #### 4 [id number] #### [facility] [address] [address] [address] Brenna Mann CO2 [Moles/Vol] 26.2 mmol/L Normal 21.0-32.0 [facility] Comment on above: Performed By: #### 4 [id number] #### [facility] [address] [address] [address] Brenna Mann Creatinine [Mass/Vol] 0.38 mg/dL Critically low 0.55-1.02 [facility] Comment on above: Performed By: #### 4 [id number] #### [facility] [address] [address] [address] Brenna Mann EGFR-AF BHUTANESE >60 Normal >=60 [facility] Comment on above: Performed By: #### 4 [id number] #### [facility] [address] [address] [address] Brenna Mann EGFR-NON AF BHUTANESE >60 Normal >=60 [facility] Comment on above: Performed By: #### 4 [id number] #### [facility] [address] [address] [address] Brenna Mann Globulin (S) [Mass/Vol] 4.5 g/dL Normal [facility] Comment on above: Performed By: #### 4 [id number] #### [facility] [address] [address] [address] Brenna Mann Glucose [Mass/Vol] 106 mg/dL Normal 74-106 [facility] Comment on above: Performed By: #### 4 [id number] #### [facility] [address] [address] [address] Brenna Mann Potassium [Moles/Vol] 3.4 mmol/L Critically low 3.5-5.1 [facility] Comment on above: Performed By: #### 4 [id number] #### [facility] [address] [address] [address] Brenna Mann Protein [Mass/Vol] 7.3 g/dL Normal 6.4-8.2 [facility] [place] Comment on above: Performed By: #### 4 [id number] #### [facility] [address] [address] [address] Brenna Mann Sodium [Moles/Vol] 136 mmol/L Normal 136-145 [facility] Comment on above: Performed By: #### 4 [id number] #### [facility] [address] [place] [address] Dr. Brenna Mann Urea nitrogen [Mass/Vol] 7.0 mg/dL Normal 7.0-18.0 [facility] Comment on above: Performed By: #### 4 [id number] #### [facility] [address] [address] [address] Brenna Mann Urea nitrogen/Creatinin e [Mass ratio] 18.4 mg/mg Normal [facility] Comment on above: Performed By: #### 4 [id number] #### [facility] [address] [place] [address] Dr. Brenna Mann US PREG TVon 08-11-2022 [...] by: LINO ARROYO Date: 2022-08-11 13:32 Normal [facility] PREG QUANT HCGon 07-18-2022 HCG QUANT 230 mIU/mL Normal [facility] Comment on above: Performed By: #### P REGQNT #### [facility] [address] [place] [address] Dr. Brenna Mann HCG RANGE SEE BELOW Normal [facility] Comment on above: Result Comment: 5-50 0.2-1 WEEK 50-500 1-2 WEEKS 100-5,000 2-3 WEEKS 500-10,000 3-4 WEEKS 1,000-50,000 4-5 WEEKS 10,000-100,000 5-6 WEEKS 15,000-200,000 6-8 WEEKS 10,000-100,000 2-3 MONTHS Performed By: #### P REGQNT #### [facility] [address] [place] [address] Dr. Brenna Mann PREG QUANT HCGon 07-15-2022 HCG QUANT 52 mIU/mL [facility] Comment on above: Performed By: #### P REGQNT #### [facility] [address] [place] [address] Dr. Brenna Mann HCG RANGE SEE BELOW [facility] Comment on above: Result Comment: 5-50 0.2-1 WEEK 50-500 1-2 WEEKS 100-5,000 2-3 WEEKS 500-10,000 3-4 WEEKS 1,000-50,000 4-5 WEEKS 10,000-100,000 5-6 WEEKS 15,000-200,000 6-8 WEEKS 10,000-100,000 2-3 MONTHS Performed By: #### P REGQNT #### [facility] [address] [place] [address] Dr. Brenna Mann PAP ACOG PANEL 2: 30 to 65on 07-14-2022 . . Normal [facility] Comment on above: Result Comment: Perf ormed at: WB Performed By: #### [id number] #### [facility] [address] [place] [address] Dr. Brenna Mann Age Gdln ACOG Testing 30-65 [facility] Comment on above: Performed By: #### 4 [id number] #### [facility] [address] [place] [address] Dr. Brenna Mann DIAGNOSIS: Comment [facility] Comment on above: Result Comment: NEGA TIVE FOR INTRAEPITHELIAL LESION OR MALIGNANCY. Performed at: WB Performed By: #### 4 [id number] #### [facility] [address] [place] [address] Dr. Brenna Mann HPV Aptima Negative Normal Negative [facility] Comment on above: Result Comment: This nucleic acid amplification test detects fourteen high-risk HPV types (16,18,31,33,35,39,45,51,52,56,58,59,66,68) without differentiation. Performed at: =G Performed By: #### 4 [id number] #### [facility] [address] [place] [address] Dr. Brenna Mann HPV Genotype Reflex Comment Normal [facility] Comment on above: Result Comment: Crit eria not met, HPV Genotype not performed. Performed at: WB Performed By: #### 4 [id number] #### [facility] [address] [place] [address] Dr. Brenna Mann Methodology: Comment Normal [facility] Comment on above: Result Comment: This liquid based ThinPrep(R) pap test was screened with the use of an image guided system. Performed at: WB Performed By: #### [id number] #### [facility] [address] [place] [address] Dr. Brenna Mann Note: Comment Normal [facility] Comment on above: Result Comment: The Pap smear is a screening test designed to aid in the detection of premalignant and malignant conditions of the uterine cervix. It is not a diagnostic procedure and should not be used as the sole means of detecting cervical cancer. Both false-positive and false-negative reports do occur. . Performed at: WB Performed By: #### [id number] #### [facility] [address] [place] [address] Dr. Brenna Mann Performed by: Comment Normal [facility] Comment on above: Result Comment: Iliana Castillo, Last Picker (ASCP) Performed at: WB Performed By: #### 4 [id number] #### [facility] [address] [place] [address] Dr. Brenna Mann Specimen adequacy: Comment Normal [facility] Comment on above: Result Comment: Sati sfactory for evaluation. No endocervical component is identified. Performed at: WB Performed By: #### 4 [id number] #### [facility] [address] [place] [address] Dr. Brenna Mann QUANTIFERON TB GOLD PLUSon 0 8-16-2022 QuantiFERON Criteria Comment Normal [facility] Comment on above: Result Comment: Keshav tiFERON-TB [...] for the test. Performed By: #### 4 [id number] #### [facility] [address] [place] [address] Dr. Brenna Mann QuantiFERON Incubation Incubation performed. Normal [facility] Comment on above: Performed By: #### 4 [id number] #### [facility] [address] [place] [address] Dr. Brenna Mann QuantiFERON Mitogen Value >10.00 Normal [facility] Comment on above: Performed By: #### 4 [id number] #### [facility] [address] [place] [address] Dr. Brenna Mann QuantiFERON Nil Value 0.02 IU/mL Normal [facility] Comment on above: Performed By: #### 4 [id number] #### [facility] [address] [place] [address] Dr. Brenna Mann QuantiFERON TB1 Ag Value 0.17 IU/mL Normal [facility] Comment on above: Performed By: #### 4 [id number] #### [facility] [address] [place] [address] Dr. Brenna Mann QuantiFERON TB2 Ag Value 0.19 IU/mL Normal [facility] Comment on above: Performed By: #### 4 [id number] #### [facility] [address] [place] [address] Dr. Brenna Mann QuantiFERON-TB Gold Plus Negative Normal Negative [facility] Comment on above: Result Comment: No r esponse to M tuberculosis antigens detected. Infection with M tuberculosis is unlikely, but high risk individuals should be considered for additional testing (ATS/IDSA/CDC Clinical Practice Guidelines, 2017). The reference range is an Antigen minus Nil result of <0.35 IU/mL. Chemiluminescence immunoassay methodology Performed By: #### 4 [id number] #### [facility] [address] [place] [address] Dr. Brenna Mann HEPATITIS B SURFACE ANTIBODY , QUANTon 02-27-2022 Hepatitis B Surf AB Quant <3.1 Critically low Immunity>9.9 [facility] Comment on above: Result Comment: Stat us of Immunity Anti-HBs Level Inconsistent with Immunity 0.0 - 9.9 Consistent with Immunity >9.9 Performed By: #### H EPBSRF #### [facility] [address] [place] [address] Dr. Brenna Mann MMR IMMUNITYon 02-27-2022 Mumps Abs, IgG <9.0 Critically low Immune >10.9 [facility] Comment on above: Result Comment: Nega tive <9.0 Equivocal 9.0 - 10.9 Positive >10.9 A positive result generally indicates past exposure to Mumps virus or previous vaccination. Performed By: #### C BC #### [facility] [address] [place] [address] Dr. Brenna Mann Rubella Antibodies, IgG 1.29 index Normal Immune >0.99 [facility] Comment on above: Result Comment: Non- immune <0.90 Equivocal 0.90 - 0.99 Immune >0.99 Performed By: #### C BC #### [facility] [address] [place] [address] Dr. Brenna Mann Rubeola Ab, IgG 75.2 AU/mL Normal Immune >16.4 [facility] Comment on above: Result Comment: Nega tive <13.5 Equivocal 13.5 - 16.4 Positive >16.4 Presence of antibodies to Rubeola is presumptive evidence of immunity except when acute infection is suspected. Performed By: #### C BC #### [facility] [address] [place] [address] Dr. Brenna Mann VARICELLA IGG ABon 2 Varicella Zoster IgG 199 index Normal Immune >165 [facility] Comment on above: Result Comment: Nega tive <135 Equivocal 135 - 165 Positive >165 A positive result generally indicates exposure to the pathogen or administration of specific immunoglobulins, but it is not indication of active infection or stage of disease. Performed By: #### V RYAN #### [facility] [address] [place] [address] Dr. Brenna Mann Operative Reporton Operative Report MR#: [id number] [facility] Pt. Name: Kavon Chao Room #: 0C Discharge Date: Birthdate: 1990 OPERATIVE REPORT DATE OF SURGERY: 02/22/2022 SURGEON: Antione Walker M.D. SALES AND MARKETING MANAGER: Cuco Castellon M.D. PREOPERATIVE DIAGNOSIS: Retinacular cyst, [...] room in stable condition. Electronically Signed by: Antione Walker M.D. 02/22/2022 01:25 P Antione Walker M.D. Date Dict: 02/22/2022/08:34 A/Antione Walker M.D. Date Trans: 02/22/2022 08:47 A/traci [id number] Normal [facility] POC GLUCOSE LABon 02-22-2022 Glucose [Mass/Vol] 77 mg/dL Normal 70-100 [facility] Comment on above: Performed By: #### 8 [id number] #### [facility] [address] [facility]. [address] POC SARS COV2 IDon 2 SARS-CoV-2 (COVID-19) RNA AD+probe Ql (Unsp spec) Negative Normal NEGATIVE [facility] Comment on above: Result Comment: ID N [...] Accreditation. Performed By: #### 3 [id number] #### [facility] [address] [facility]. [address] Telephone Encounteron 2020 Passenger Relations Representative Authentication Interface Message Text ??? Outbound call to mom ??? Wanted to follow up make sure rcvd autopsies ??? Left VM to call back Aleyda Ewing Normal [facility] Telephone Encounteron 2020 Passenger Relations Representative Authentication Interface Message Text ??? Spoke w/[facility] to get follow up on autopsy ??? Currently taking up to 60 days is correct ??? Reached at to mom @:[phone] ??? Spoke w/mom ??? Advised of what was stated that currently undergoing microscope process ??? Verbal understanding ??? Will follow up if she hasn't heard anything soon Aleyda Ewing Normal [facility] Telephone Encounteron 2020 Passenger Relations Representative Authentication Interface Message Text Outbound call to mom loss 09/14/2020 Concerned still haven't received autoscopy States that it been very difficult Provided additional support services Will follow back with me after 60 days if still no autoscopy Aleyda Ewing Normal [facility] BASIC METABOLIC PANELon Anion gap [Moles/Vol] 15 mmol/L High 5-13 [facility] Comment on above: Performed By: #### L Jose, CH8 #### [facility] [address] [place] [address], Calcium [Mass/Vol] 8.2 mg/dL Low 8.4-10.4 [facility] Comment on above: Performed By: #### L Jose, CH8 #### [facility] [address] [place] [address], Chloride [Moles/Vol] 99 mmol/L Normal 97-111 [facility] Comment on above: Performed By: #### L Jose, CH8 #### [facility] [address] [place] [address], CO2 [Moles/Vol] 21 mmol/L Normal 21-30 [facility] Comment on above: Performed By: #### L Jose, CH8 #### [facility] [address] [place] [address], Creatinine [Mass/Vol] 0.49 mg/dL Low 0.50-1.10 [facility] Comment on above: Performed By: #### L Jose, CH8 #### [facility] [address] [place] [address], ESTIMATED GFR (CKD-EPI) 130 mL/min/1.73sqm Normal >=60 [facility] Comment on above: Performed By: #### L Jose, CH8 #### [facility] [address] [place] [address], Glucose [Mass/Vol] 146 mg/dL High 68-110 [facility] Comment on above: Performed By: #### Louis Garcia, CH8 #### [facility] [address] [place] [address], Potassium [Moles/Vol] 4.3 mmol/L Normal 3.3-5.3 [facility] Comment on above: Performed By: #### Louis Garcia, CH8 #### [facility] [address] [place] [address], Sodium [Moles/Vol] 131 mmol/L Low 135-148 [facility] Comment on above: Performed By: #### Louis Garcia, CH8 #### [facility] [address] [place] [address], Urea nitrogen [Mass/Vol] 9 mg/dL Normal 8-22 [facility] Comment on above: Performed By: #### Louis Garcia, AISHA8 #### [facility] [address] [place] [address], CBC WITH DIFFERENTIALon 03-0 -2020 Basophils (Bld) [#/Vol] 0.02 10*3/uL Normal 0.00-0.20 [facility] Comment on above: Performed By: #### Blessing VARGAS #### [facility] [address] [place] [address], Basophils/100 WBC (Bld) 0.1 % Normal <=1.9 [facility] Comment on above: Performed By: #### Blessing VARGAS #### [facility] [address] [place] [address], Eosinophils (Bld) [#/Vol] 0.03 10*3/uL Normal 0.00-0.70 [facility] Comment on above: Performed By: #### Blessing VARGAS #### [facility] [address] [place] [address], Eosinophils/100 WBC (Bld) 0.2 % Normal 0.1-4.0 [facility] Comment on above: Performed By: #### Blessing VARGAS #### [facility] [address] [place] [address], Erythrocyte distribution width (RBC) [Ratio] 15.3 % High 11.5-14.5 [facility] Comment on above: Performed By: #### R BU #### [facility] [address] [place] [address], Hematocrit (Bld) [Volume fraction] 19.7 % Critically low 36.0-46.0 [facility] Comment on above: Performed By: #### R ALICIA #### [facility] [address] [place] [address], Hemoglobin (Bld) [Mass/Vol] 6.6 g/dL Critically low 12.0-15.0 [facility] Comment on above: Performed By: #### R ALICIA #### [facility] [address] [place] [address], Lymphocytes (Bld) [#/Vol] 2.12 10*3/uL Normal 1.00-4.80 [facility] Comment on above: Performed By: #### R ALICIA #### [facility] [address] [place] [address], Lymphocytes/100 WBC (Bld) 14.9 % Low 24.0-44.0 [facility] Comment on above: Performed By: #### R ALICIA #### [facility] [address] [place] [address], MCH (RBC) [Entitic mass] 27.4 pg Normal 26.0-34.0 [facility] Comment on above: Performed By: #### R ALICIA #### [facility] [address] [place] [address], MCHC (RBC) [Mass/Vol] 33.5 g/dL Normal 32.0-35.9 [facility] Comment on above: Performed By: #### R BU #### [facility] [address] [place] [address], MCV (RBC) [Entitic vol] 82 fL Normal 80-100 [facility] Comment on above: Performed By: #### R ALICIA #### [facility] [address] [place] [address], MONOCYTE DISTRIBUTION WIDTH Normal [facility] Comment on above: Performed By: #### R BU #### [facility] [address] [place], [place], Monocytes (Bld) [#/Vol] 1.34 10*3/uL High 0.20-1.00 [facility] Comment on above: Performed By: #### R BU #### [facility] [address] [place], [place], Monocytes/100 WBC (Bld) 9.4 % Normal 2.0-11.0 [facility] Comment on above: Performed By: #### R BU #### [facility] [address] [place], [place], Neutrophils (Bld) [#/Vol] 10.75 10*3/uL High 1.50-8.00 [facility] Comment on above: Performed By: #### R BU #### [facility] [address] [place], [place], Neutrophils/100 WBC (Bld) 75.4 % Normal 31.0-76.0 [facility] Comment on above: Performed By: #### R BU #### [facility] [address] [place], [place], Platelet mean volume (Bld) [Entitic vol] 10.1 fL Normal 7.5-11.2 [facility] Comment on above: Performed By: #### R BU #### [facility] [address] [place], [place], Platelets (Bld) [#/Vol] 131 10*3/uL Low 150-400 [facility] Comment on above: Performed By: #### R BU #### [facility] [address] [place], [place], RBC (Bld) [#/Vol] 2.41 10*6/uL Low 4.00-5.20 [facility] Comment on above: Performed By: #### R BU #### [facility] [address] [place], [place], WBC (Bld) [#/Vol] 14.3 10*3/uL High 4.5-11.5 [facility] Comment on above: Performed By: #### R BU #### [facility] [address] [place] [address], COMPLETE BLOOD COUNTon 09-15 Erythrocyte distribution width (RBC) [Ratio] 15.2 % High 11.5-14.5 [facility] Comment on above: Performed By: #### C BDYFLD #### [facility] [address] [place], [place] Erythrocyte distribution width (RBC) [Ratio] 15.5 % High 11.5-14.5 [facility] Comment on above: Performed By: #### 1 4601, [id number] #### [facility] [address] [place] [address] Hematocrit (Bld) [Volume fraction] 17.7 % Critically low 36.0-46.0 [facility] Comment on above: Performed By: #### C BDYFLD #### [facility] [address] [place] [address] Hematocrit (Bld) [Volume fraction] 23.5 % Low 36.0-46.0 [facility] Comment on above: Performed By: #### 1 4601, [id number] #### [facility] [address] [place], [place] Hemoglobin (Bld) [Mass/Vol] 6.0 g/dL Critically low 12.0-15.0 [facility] Comment on above: Performed By: #### C BDYFLD #### [facility] [address] [place], [place] Hemoglobin (Bld) [Mass/Vol] 7.8 g/dL Low 12.0-15.0 [facility] Comment on above: Performed By: #### 1 4601, [id number] #### [facility] [address] [place], [place] MCH (RBC) [Entitic mass] 27.9 pg Normal 26.0-34.0 [facility] Comment on above: Performed By: #### C BDYFLD #### [facility] [address] [facility] [place], [place] MCH (RBC) [Entitic mass] 28.1 pg Normal 26.0-34.0 [facility] Comment on above: Performed By: #### 1 4601, [id number] #### [facility] [address] [facility] [place], [place] MCHC (RBC) [Mass/Vol] 34.1 g/dL Normal 32.0-35.9 [facility] Comment on above: Performed By: #### C BDYFLD #### [facility] [address] [facility] [place], [place] MCHC (RBC) [Mass/Vol] 33.2 g/dL Normal 32.0-35.9 [facility] Comment on above: Performed By: #### 1 4601, [id number] #### [facility] [address] [facility] [place], [place] MCV (RBC) [Entitic vol] 82 fL Normal 80-100 [facility] Comment on above: Performed By: #### C BDYFLD #### [facility] [address] [facility] [place], [place] MCV (RBC) [Entitic vol] 85 fL Normal 80-100 [facility] Comment on above: Performed By: #### 1 4601, [id number] #### [facility] [address] [facility] [place], [place] Platelet mean volume (Bld) [Entitic vol] 10.1 fL Normal 7.5-11.2 [facility] Comment on above: Performed By: #### C BDYFLD #### [facility] [address] [facility] [place], [place] Platelet mean volume (Bld) [Entitic vol] 9.9 fL Normal 7.5-11.2 [facility] Comment on above: Performed By: #### 1 4601, [id number] #### [facility] [address] [facility] [place], [place] Platelets (Bld) [#/Vol] 113 10*3/uL Low 150-400 [facility] Comment on above: Performed By: #### C BDYFLD #### [facility] [address] [facility] [place], [place] Platelets (Bld) [#/Vol] 109 10*3/uL Low 150-400 [facility] Comment on above: Performed By: #### 1 4601, [id number] #### [facility] [address] [facility] [place], [place] RBC (Bld) [#/Vol] 2.17 10*6/uL Low 4.00-5.20 [facility] Comment on above: Performed By: #### C BDYFLD #### [facility] [address] [facility] [place], [place] RBC (Bld) [#/Vol] 2.77 10*6/uL Low 4.00-5.20 [facility] Comment on above: Performed By: #### 1 4601, [id number] #### [facility] [address] [place] [address] [place], [place] WBC (Bld) [#/Vol] 13.4 10*3/uL High 4.5-11.5 [facility] Comment on above: Performed By: #### C BDYFLD #### [facility] [address] [place] [address] WBC (Bld) [#/Vol] 13.2 10*3/uL High 4.5-11.5 [facility] Comment on above: Performed By: #### 1 4601, [id number] #### [facility] [address] [facility] [place], [place] FIBRINOGENon 09-15-2020 FIBRINOGEN 372 mg/dL Normal 200-500 [facility] Comment on above: Performed By: #### 1 4601, [id number] #### [facility] [address] [facility] [place], [place] LDHon 09-15-2020 LD 247 IU/L High 50-220 [facility] Comment on above: Performed By: #### L D, CH8 #### [facility] [address] [place] [address], PARTIAL THROMBOPLASTIN TIMEo n 09-15-2020 aPTT Coag (Bld) [Time] 26 s Normal 25-37 [facility] Comment on above: Performed By: #### 1 4601, [id number] #### [facility] [address] [facility] [place], [place] PROTHROMBIN TIME AND INRon 0 09-15-2020 INR Coag (PPP) [Relative time] 0.98 {INR} Normal 0.90-1.10 [facility] Comment on above: Performed By: #### 1 4601, [id number] #### [facility] [address] [facility] [place], [place] PT Coag (PPP) [Time] 11.1 s Normal 9.7-12.9 [facility] Comment on above: Performed By: #### 1 460, [id number] #### [facility] [address] [facility] [place], [place] RED BLOOD CELL COMPONENTon 0 09-15-2020 BB ORDER ITEM Product status info to follow Normal [facility] Comment on above: Performed By: #### Blessing VARGAS #### [facility] [address] [place] [address], RED BLOOD CELL UNIT STATUSon 09-15-2020 BLOOD PRODUCT CODE [id number] Normal [facility] Comment on above: Performed By: #### Blsesing VARGAS #### [facility] [address] [place] [address], BLOOD PRODUCT DESCRIPTION Red Blood Cells Normal [facility] Comment on above: Performed By: #### R ALICIA #### [facility] [address] [place] [address], BLOOD PRODUCT STATUS Released to avail Normal [facility] Comment on above: Performed By: #### R ALICIA #### [facility] [address] [place] [address], BLOOD PRODUCT UNIT INFO [id number] Normal [facility] Comment on above: Performed By: #### R ALICIA #### [facility] [address] [place] [address], BLOOD PRODUCT UNIT INFO [id number] Normal [facility] Comment on above: Performed By: #### R ALICIA #### [facility] [address] [place], [place], BLOOD PRODUCT UNIT TYPE 6200 Normal [facility] Comment on above: Result Comment: A Po s Performed By: #### R BU #### [facility] [address] [place], [place], CROSSMATCH INTERPRETATION Compatible (E) Normal [facility] Comment on above: Performed By: #### R BU #### [facility] [address] [place], [place], ABO RH TYPEon 09-14-2020 ABO and Rh group Nom (Bld) Blood group A Rh(D) positive Normal [facility] Comment on above: Performed By: #### 1 4601, [id number] #### [facility] [address] [place] [address] Dr RashidSaundersRog[place], [place] CHROMOSOME ANALYSIS, BONE MA RROWon 09-14-2020 CHROMOSOME ANALYSIS, BONE MARROW Resulting Agency Address Site ID: [facility] Name: [facility] Counts include 234 beds at the [facility] Address: [address] [place] [address] [place], [place] Director: Shalom Dumont M.D.,PhD TNP TEST NOT PERFORMED Test cancelled for reorder purposes. Normal [facility] Comment on above: Performed By: #### 1 4601, [id number] #### [facility] [address] [place] [address] Dr RashidSaundersRogers, [place] CHROMOSOME ANALYSIS, TISSUEo n 09-14-2020 CHROMOSOME ANALYSIS, TISSUE CHROMOSOMES, TISSUE: TNP *Test Not Performed. * *Tissue culture and chromosome * *analysis identified insufficient * *metaphases for full cytogenetic * *interpretation. This test code is * *replaced with a code that * *summarizes the culture results. * *A fee for tissue culture will be * *included for this specimen. * Normal [facility] Comment on above: Order Comment: [facility] Agency Address Site ID: [facility] Name: [facility] Address: [address] [place] [address] Dr [place], [place] Director: Shalom Dumont M.D.,PhD Performed By: #### 1 4601, [id number] #### [facility] [address] [place] [address] [place], [place] CHROMOSOME ANALYSIS, TISSUE CHROMOSOMES, TISSUE: see note Order ID: [id number] Specimen Type: Products of Conception Clinical Indication: IUFD RESULT: NORMAL FEMALE KARYOTYPE See NOTE INTERPRETATION: Chromosome analysis revealed normal G-band patterns within the limits of standard cytogenetic analysis. Please expect the results of any other concurrent study in a separate report. NOTE: This is a report on cultures set from chorionic villi. A tissue specimen ([id number]) did not provided outgrowth. NOMENCLATURE: 46,XX ASSAY INFORMATION: Method: G-Banding Cells Counted: 20 Colonies Counted: 0 Band Level: 450 Cells Analyzed: 5 Cells Karyotyped: 2 This test does not address genetic disorders that cannot be detected by standard cytogenetic methods, or rare events such as low level mosaicism or subtle rearrangements. Maternal cell contamination is not excluded. Lino Daly, Ph.D., [facility], [employer], Cytogenetics and Genomics, Electronic Signature: 10/06/2020 3:36 PM Normal [facility] Comment on above: Order Comment: The r eference range and other method performance specifications have not been established for this body fluid. The test must be integrated into the clinical context for interpretation. Performed By: #### G MARGIE BF #### [facility] [address] [place], [place], COMPLETE BLOOD COUNTon 09-14 Erythrocyte distribution width (RBC) [Ratio] 15.4 % High 11.5-14.5 [facility] Comment on above: Performed By: #### 1 4601, [id number] #### [facility] [address] [facility] [place], [place] Erythrocyte distribution width (RBC) [Ratio] 15.3 % High 11.5-14.5 [facility] Comment on above: Performed By: #### C BC #### S PATHOLOG[facility] LABORATORY [address] [place], [place], Hematocrit (Bld) [Volume fraction] 26.5 % Low 36.0-46.0 [facility] Comment on above: Performed By: #### 1 4601, [id number] #### [facility] [address] [place], [place] Hematocrit (Bld) [Volume fraction] 20.5 % Low 36.0-46.0 [facility] Comment on above: Performed By: #### C BC #### [facility] [address] [place] [address], Hemoglobin (Bld) [Mass/Vol] 8.7 g/dL Low 12.0-15.0 [facility] Comment on above: Performed By: #### 1 4601, [id number] #### [facility] [address] [place] [address] Hemoglobin (Bld) [Mass/Vol] 7.0 g/dL Low 12.0-15.0 [facility] Comment on above: Performed By: #### C BC #### [facility] [address] [place] [address], MCH (RBC) [Entitic mass] 26.9 pg Normal 26.0-34.0 [facility] Comment on above: Performed By: #### 1 4601, [id number] #### [facility] [address] [place] [address] MCH (RBC) [Entitic mass] 27.7 pg Normal 26.0-34.0 [facility] Comment on above: Performed By: #### C BC #### [facility] [address] [place], [place], MCHC (RBC) [Mass/Vol] 32.7 g/dL Normal 32.0-35.9 [facility] Comment on above: Performed By: #### 1 4601, [id number] #### [facility] [address] [facility] [place], [place] MCHC (RBC) [Mass/Vol] 33.9 g/dL Normal 32.0-35.9 [facility] Comment on above: Performed By: #### C BC #### S PATH[facility] LAB[facility]AT[facility] [address] [place], [place], MCV (RBC) [Entitic vol] 82 fL Normal 80-100 [facility] Comment on above: Performed By: #### 1 4601, [id number] #### [facility] [address] [facility] [place], [place] MCV (RBC) [Entitic vol] 82 fL Normal 80-100 [facility] Comment on above: Performed By: #### C BC #### [facility] [address] [place], [place], Platelet mean volume (Bld) [Entitic vol] 10.9 fL Normal 7.5-11.2 [facility] Comment on above: Performed By: #### 1 4601, [id number] #### [facility] Pathology [address] [place] [address] [place], [place] Platelet mean volume (Bld) [Entitic vol] 10.3 fL Normal 7.5-11.2 [facility] Comment on above: Performed By: #### C BC #### [facility] [address] [place], [place], Platelets (Bld) [#/Vol] 235 10*3/uL Normal 150-400 [facility] Comment on above: Performed By: #### 1 4601, [id number] #### [facility] [address] [facility] [place], [place] Platelets (Bld) [#/Vol] 123 10*3/uL Low 150-400 [facility] Comment on above: Performed By: #### C BC #### [facility] [address] [place], [place], RBC (Bld) [#/Vol] 3.22 10*6/uL Low 4.00-5.20 [facility] Comment on above: Performed By: #### 1 4601, [id number] #### [facility] [address] [facility] [place], [place] RBC (Bld) [#/Vol] 2.51 10*6/uL Low 4.00-5.20 The [facility] Comment on above: Performed By: #### C BC #### [facility] [address] [place], [place], WBC (Bld) [#/Vol] 22.9 10*3/uL High 4.5-11.5 The [facility] Comment on above: Performed By: #### 1 4601, [id number] #### [facility] Pathology [address] [facility] [place], [place] WBC (Bld) [#/Vol] 18.1 10*3/uL High 4.5-11.5 The [facility] Comment on above: Performed By: #### C BC #### [facility] [address] [place], [place], FIBRINOGENon 09-14-2020 FIBRINOGEN 329 mg/dL Normal 200-500 The [facility] Comment on above: Performed By: #### R BU #### [facility] [address] [place], [place], FIBRINOGEN 312 mg/dL Normal 200-500 The [facility] Comment on above: Performed By: #### 1 4601, [id number] #### [facility] Pathology [address] [facility] [place], [place] LDHon 09-14-2020 LD 300 IU/L High 50-220 The [facility] Comment on above: Performed By: #### G MARGIE BF #### [facility] [address] [place], [place], PARTIAL THROMBOPLASTIN TIMEo n 09-14-2020 aPTT Coag (Bld) [Time] 27 s Normal 25-37 The [facility] Comment on above: Performed By: #### R BU #### [facility] [address] [place], [place], aPTT Coag (Bld) [Time] 20 s Low 25-37 The [facility] Comment on above: Performed By: #### 1 4601, [id number] #### [facility] [address] [facility] [place], [place] PROTHROMBIN TIME AND INRon 0 09-14-2020 INR Coag (PPP) [Relative time] 1.04 {INR} Normal 0.90-1.10 [facility] Comment on above: Performed By: #### R BU #### S PATHOLOG[facility] LABORATORY [address] [place], [place], INR Coag (PPP) [Relative time] 1.02 {INR} Normal 0.90-1.10 [facility] Comment on above: Performed By: #### 1 4601, [id number] #### [facility] [address] [facility] [place], [place] PT Coag (PPP) [Time] 11.8 s Normal 9.7-12.9 [facility] Comment on above: Performed By: #### R BU #### S [facility] [address] [place], [place], PT Coag (PPP) [Time] 11.5 s Normal 9.7-12.9 [facility] Comment on above: Performed By: #### 1 4601, [id number] #### [facility] [address] [facility] [place], [place] Progress Noteson 09-14-2020 Passenger Relations Representative Authentication Interface Message Text To room to evaluate patient. Concern for tachysystole on tocometry, patient with persistent hypotension following epidural placement, with ongoing resuscitation from anesthesia. SVE: [id number]. No evidence of blood on perineal pad. [...] Hutton MD, MPH PGY-3, Obstetrics and Gynecology [phone] Normal [facility] RED BLOOD CELL COMPONENTon 0 09-14-2020 BB ORDER ITEM Product status info to follow Normal The [facility] Comment on above: Performed By: #### C BDYFLD #### [facility] Pathology [address] [facility] [place], [place] RED BLOOD CELL UNIT STATUSon 09-14-2020 BLOOD PRODUCT CODE [id number] Normal The [facility] Comment on above: Performed By: #### 1 4601, [id number] #### [facility] Path[facility] [address] [facility] [place], [place] BLOOD PRODUCT DESCRIPTION Red Blood Cells Normal The [facility] Comment on above: Performed By: #### 1 4601, [id number] #### [facility] Pathology [address] [place] [address] [place], [place] BLOOD PRODUCT STATUS Transfused Normal The [facility] Comment on above: Performed By: #### 1 4601, [id number] #### [facility] [address] [facility] [place], [place] BLOOD PRODUCT UNIT INFO [id number] Normal The [facility] Comment on above: Performed By: #### 1 4601, [id number] #### [facility] [address] [place] [address] [place], [place] BLOOD PRODUCT UNIT INFO [id number] Normal The [facility] Comment on above: Performed By: #### 1 4601, [id number] #### [facility] [address] [facility] [place], [place] BLOOD PRODUCT UNIT TYPE 5100 Normal The [facility] Comment on above: Result Comment: O Po s Performed By: #### 1 4601, [id number] #### [facility] Pathology [address] [place] [address] [place], [place] CROSSMATCH INTERPRETATION Compatible (IS) Normal The [facility] Comment on above: Performed By: #### 1 4601, [id number] #### [facility] Pathology [address] [place] [address] Dr [place], [place] AEROBIC BODY FLUID CULTUREon 09-13-2020 AEROBIC BODY FLUID CULTURE C BDYFLD: No Growth GRAM STAIN: This Gram Stain was performed on a Cytocentrifuged specimen. No Polymorphonuclear Leukocytes seen 3+ Squamous Epithelial Cells No organisms seen Normal The [facility] Comment on above: Performed By: #### C BDYFLD #### [facility] Pathology [address] [place] [address] [place] BASIC METABOLIC PANELon 08-18 Anion gap [Moles/Vol] 18 mmol/L High 5-13 The [facility] Comment on above: Performed By: #### G MARGIE BF #### [facility] [address] [place] [address], Calcium [Mass/Vol] 9.2 mg/dL Normal 8.4-10.4 The [facility] Comment on above: Performed By: #### Josselin HANSON BF #### [facility] [address] [place] [address], Chloride [Moles/Vol] 101 mmol/L Normal 97-111 The [facility] Comment on above: Performed By: #### Josselin HANSON BF #### [facility] [address] [place] [address], CO2 [Moles/Vol] 21 mmol/L Normal 21-30 The [facility] Comment on above: Performed By: #### Josselin HANSON BF #### S [facility] LAB[facility]ATORY [address] [place] [address], Creatinine [Mass/Vol] 0.37 mg/dL Low 0.50-1.10 The [facility] Comment on above: Performed By: #### G MARGIE BF #### S [facility] [address] [place] [address], ESTIMATED GFR (CKD-EPI) 143 mL/min/1.73sqm Normal >=60 The [facility] Comment on above: Performed By: #### G MARGIE BF #### [facility] [address] [place] [address], Glucose [Mass/Vol] 78 mg/dL Normal 68-110 The [facility] Comment on above: Performed By: #### G MARGIE BF #### S [facility] LAB[facility] [address] [place], [place], Potassium [Moles/Vol] 4.2 mmol/L Normal 3.3-5.3 [facility] Comment on above: Performed By: #### Josselin CAN #### [facility] [address] [place], [place], Sodium [Moles/Vol] 136 mmol/L Normal 135-148 [facility] Comment on above: Performed By: #### Josselin CAN #### [facility] [address] [place], [place], Urea nitrogen [Mass/Vol] 4 mg/dL Low 8-22 [facility] Comment on above: Performed By: #### Josselin CAN #### [facility] [address] [place] [address], CARDIOLIPIN ANTIBODY IGG/IGM on 09-13-2020 ACARD G < 1.6 Normal <20.0 [facility] Comment on above: Order Comment: Refer ence Range:Cardiolipin IgG AB : Negative :<20.0 GPL U/mL Positive :> or = to 20.0 GPL U/mLCardiolipin IgM AB : Negative :<20.0 MPL U/mL Positive :> or = to 20.0 MPL U/mL Performed By: #### Blessing VARGAS #### [facility] [address] [place], [place], ACARD M 0.7 MPL U/mL Normal <20.0 [facility] Comment on above: Order Comment: Refer ence Range:Cardiolipin IgG AB : Negative :<20.0 GPL U/mL Positive :> or = to 20.0 GPL U/mLCardiolipin IgM AB : Negative :<20.0 MPL U/mL Positive :> or = to 20.0 MPL U/mL Performed By: #### R BU #### [facility] [address] [place] [address], CBC WITH DIFFERENTIALon 08-18 Basophils (Bld) [#/Vol] 0.03 10*3/uL Normal 0.00-0.20 [facility] Comment on above: Performed By: #### Josselin CAN #### S PATH[facility] [address] [place], [place], Basophils/100 WBC (Bld) 0.3 % Normal <=1.9 [facility] Comment on above: Performed By: #### G MARGIE BF #### S [facility] [address] [place], [place], Eosinophils (Bld) [#/Vol] 0.04 10*3/uL Normal 0.00-0.70 [facility] Comment on above: Performed By: #### G MARGIE BF #### [facility] [address] [place], [place], Eosinophils/100 WBC (Bld) 0.4 % Normal 0.1-4.0 [facility] Comment on above: Performed By: #### Josselin MARGIE BF #### [facility] [address] [place], [place], Erythrocyte distribution width (RBC) [Ratio] 15.3 % High 11.5-14.5 [facility] Comment on above: Performed By: #### Josselin MARGIE BF #### [facility] [address] [place], [place], Hematocrit (Bld) [Volume fraction] 37.8 % Normal 36.0-46.0 [facility] Comment on above: Performed By: #### G MARGIE BF #### [facility] [address] [place], [place], Hemoglobin (Bld) [Mass/Vol] 12.5 g/dL Normal 12.0-15.0 [facility] Comment on above: Performed By: #### G MARGIE BF #### [facility] [address] [place], [place], Lymphocytes (Bld) [#/Vol] 2.28 10*3/uL Normal 1.00-4.80 [facility] Comment on above: Performed By: #### G MARGIE BF #### [facility] [address] [place], [place], Lymphocytes/100 WBC (Bld) 22.1 % Low 24.0-44.0 [facility] Comment on above: Performed By: #### Josselin MARGIE BF #### [facility] [address] [place] [address], MCH (RBC) [Entitic mass] 27.2 pg Normal 26.0-34.0 [facility] Comment on above: Performed By: #### Josselin MARGIE BF #### [facility] [address] [place] [address], MCHC (RBC) [Mass/Vol] 33.2 g/dL Normal 32.0-35.9 [facility] Comment on above: Performed By: #### Josselin MARGIE BF #### [facility] [address] [place] [address], MCV (RBC) [Entitic vol] 82 fL Normal 80-100 [facility] Comment on above: Performed By: #### Josselin HANSON BF #### [facility] [address] [place] [address], MONOCYTE DISTRIBUTION WIDTH Normal [facility] Comment on above: Performed By: #### Josselin HANSON BF #### [facility] [address] [place] [address], Monocytes (Bld) [#/Vol] 0.77 10*3/uL Normal 0.20-1.00 [facility] Comment on above: Performed By: #### Josselin HANSON BF #### [facility] [address] [place] [address], Monocytes/100 WBC (Bld) 7.4 % Normal 2.0-11.0 [facility] Comment on above: Performed By: #### Josselin HANSON BF #### [facility] [address] [place] [address], Neutrophils (Bld) [#/Vol] 7.21 10*3/uL Normal 1.50-8.00 [facility] Comment on above: Performed By: #### Josselin MARGIE BF #### [facility] [address] [place] [address], Neutrophils/100 WBC (Bld) 69.9 % Normal 31.0-76.0 [facility] Comment on above: Performed By: #### Josselin MARGIE BF #### [facility] [address] [place] [address], Platelet mean volume (Bld) [Entitic vol] 10.7 fL Normal 7.5-11.2 [facility] Comment on above: Performed By: #### G MARGIE BF #### [facility] [address] [place] [address], Platelets (Bld) [#/Vol] 160 10*3/uL Normal 150-400 [facility] Comment on above: Performed By: #### Josselin HANSON BF #### [facility] [address] [place] [address], RBC (Bld) [#/Vol] 4.61 10*6/uL Normal 4.00-5.20 [facility] Comment on above: Performed By: #### Josselin HANSON BF #### [facility] [address] [place] [address], WBC (Bld) [#/Vol] 10.3 10*3/uL Normal 4.5-11.5 [facility] Comment on above: Performed By: #### Josselin HANSON BF #### [facility] [address] [place] [address], CYTOMEGALOVIRUS ANTIBODY IGG on 09-13-2020 CMV G Reactive Abnormal Nonreactive [facility] Comment on above: Performed By: #### C MV G #### [facility] [address] [place] [address], CYTOMEGALOVIRUS ANTIBODY IGM on 09-13-2020 CMV M < 0.2 Normal The [facility] Comment on above: Order Comment: Refer ence Range:Negative < or = to 0.8 AIEquivocal 0.9 - 1.0 AIPositive > or = to 1.1 AIThe magnitude of the result measured above the cut-off is not indicative of the total amount of the antibodies detected. The following results were obtained with the [employer] 2200 CMV IgM test. Results obtained from other manufacturers' assay methods may not be used interchangeably. Performed By: #### C BDYFLD #### [facility] Pathology [address] [place] [address] HEMOGLOBIN ELUTIONon 0 09-13-2020 CELL/ RHIG COMMENTS Detected Normal [facility] Comment on above: Performed By: #### G MARGIE BF #### S PATH[facility]ATORY [address] [place] [address], HEMOGLOBIN ELUTION 0.00 % Normal <=0.00 [facility] Comment on above: Performed By: #### G MARGIE BF #### S [facility] [address] [place] [address], TOTAL MLS OF CELLS 0.00 Normal <=0.00 [facility] Comment on above: Performed By: #### G MARGIE BF #### S [facility] [address] [place] [address], FIBRINOGENon 09-13-2020 FIBRINOGEN 541 mg/dL High 200-500 [facility] Comment on above: Performed By: #### G MARGIE BF #### [facility] [address] [place] [address], FLUID CELL COUNTon Clarity (U) Cloudy Normal [facility] Comment on above: Order Comment: The r eference range and other method performance specifications have not been established for this body fluid. The test must be integrated into the clinical context for interpretation. Performed By: #### G MARGIE BF #### [facility] [address] [place] [address], Color (U) Brown Normal [facility] Comment on above: Order Comment: The r eference range and other method performance specifications have not been established for this body fluid. The test must be integrated into the clinical context for interpretation. Performed By: #### G MARGIE BF #### [facility] [address] [place], [place], RBC (Bld) [#/Vol] 0.92672 10*6/uL Normal Th e [facility] Comment on above: Order Comment: The r eference range and other method performance specifications have not been established for this body fluid. The test must be integrated into the clinical context for interpretation. Performed By: #### G MARGIE BF #### [facility] [address] [place] [address], WBC (Bld) [#/Vol] 0.004 10*3/uL Normal [facility] Comment on above: Order Comment: The r eference range and other method performance specifications have not been established for this body fluid. The test must be integrated into the clinical context for interpretation. Performed By: #### G MARGIE BF #### [facility] [address] [place] [address], FLUID DIFFERENTIALon 021 CELLS COUNTED TOTAL # IN BLOOD 7 Normal [facility] Comment on above: Performed By: #### G MARGIE BF #### S [facility] [address] [place] [address], FLUID, LYMPHOCYTES 57 % Normal [facility] Comment on above: Performed By: #### G MARGIE BF #### [facility] [address] [place] [address], FLUID, MONOCYTES/MACROPHA GES 14 % Normal [facility] Comment on above: Performed By: #### G MARGIE BF #### S [facility] [address] [place] [address], FLUID, NEUTROPHILS 29 % Normal [facility] Comment on above: Performed By: #### G MARGIE BF #### S [facility] [address] [place] [address], GLUCOSE, BODY FLUIDon 2020 GLUCOSE, FLUID 18 mg/dL Normal [facility] Comment on above: Order Comment: The r eference range and other method performance specifications have not been established for this body fluid. The test must be integrated into the clinical context for interpretation. Performed By: #### G MARGIE BF #### [facility] [address] [place] [address], HEMOGLOBIN A1Con 09-13-2020 Glucose [Mass/Vol] 80 mg/dL Normal [facility] Comment on above: Order Comment: HbA1c of 5.7-6.4% have increased risk for diabetes and CV(Source :ADA 2014 Standard of Medical Care in Diabetes) Performed By: #### R BU #### S [facility] [address] [place] [address], HbA1c (Bld) [Mass fraction] 4.4 % Normal 4.0-5.6 [facility] Comment on above: Order Comment: HbA1c of 5.7-6.4% have increased risk for diabetes and CV(Source :ADA 2014 Standard of Medical Care in Diabetes) Performed By: #### Blessing BU #### [facility] [address] [place] [address], HEPATIC FUNCTION PANELon Albumin [Mass/Vol] 2.7 g/dL Low 3.4-5.1 [facility] Comment on above: Performed By: #### Louis Garcia, CH8 #### S [facility] [address] [place] [address], ALK 101 IU/L Normal 40-200 [facility] Comment on above: Performed By: #### Louis Garcia, CH8 #### [facility] [address] [place] [address], ALT [Catalytic activity/Vol] 18 U/L Normal 7-40 The [facility] Comment on above: Performed By: #### Louis Garcia, CH8 #### [facility] [address] [place] [address], AST [Catalytic activity/Vol] 8 U/L Normal 7-40 The [facility] Comment on above: Result Comment: Hemo lysis present Performed By: #### Louis Garcia, CH8 #### [facility] [address] [place] [address], Bilirubin [Mass/Vol] 1.9 mg/dL High 0.1-1.5 The [facility] Comment on above: Performed By: #### Louis Garcia, CH8 #### [facility] [address] [place] [address], Bilirubin.direct [Mass/Vol] 0.80 mg/dL High 0.10-0.30 The [facility] Comment on above: Performed By: #### Louis Garcia, CH8 #### [facility] [address] [place] [address], Protein [Mass/Vol] 5.8 g/dL Low 6.2-8.3 [facility] Comment on above: Performed By: #### Louis Garcia, CH8 #### [facility] [address] [place] [address], HEPATITIS B SURFACE ANTIGENo n 09-13-2020 HBSAG Non-Reactive Normal Non-Reactive The [facility] Comment on above: Performed By: #### H BSAG #### [facility] [address] [place], [place], HEPATITIS C ANTIBODYon 09-13 HCV Non-Reactive Normal Nonreactive The [facility] Comment on above: Performed By: #### 1 4601, [id number] #### [facility] [address] [facility] [place], [place] HIV1 HIV2 AGAB SCRNon 2020 HIV AG-AB SCREEN Non-Reactive Normal Non-Reactive The [facility] Comment on above: Order Comment: HIV I nformation: ???[place] Rev. code 3701.243(E):This information has been disclosed [...] test. Performed By: #### R BU #### [facility] [address] [place], [place], LDHon 09-13-2020 LD 501 IU/L High 50-220 The [facility] Comment on above: Result Comment: Hemo lysis present Performed By: #### C BDYFLD #### [facility] [address] [facility] [place], [place] LUPUS ANTICOAGULANT PANELon 09-13-2020 [place] Negative Normal Negative [facility] Comment on above: Order Comment: Mc rapp Agency Address Site ID: AMD Name: Trusight/Nessa MetzgerYassine [place] Address: [address] [place] [address] Dr Met[place]ger, [place] Director: Shalom Dumont M.D.,PhD Performed By: #### 1 4601, [id number] #### [facility] [address] [facility] [place], [place] NOVEL CORONAVIRUS (COVID-19) on 09-13-2020 SARS-CoV-2 (COVID-19) RNA AD+probe Ql (Unsp spec) Not detected Normal Not Detected [facility] Comment on above: Order Comment: This test is intended for use only under Emergency Use Authorization (EUA). This test was developed, and its performance characteristics determined by [facility] [employer] which is certified under CLIA as qualified to perform high complexity clinical laboratory testing. Result Comment: This assay was performed using [employer] [place] RTPCR technology. Performed By: #### 1 4601, [id number] #### [facility] [address] [facility] [place], [place] PARTIAL THROMBOPLASTIN TIMEo n 09-13-2020 aPTT Coag (Bld) [Time] 29 s Normal 25-37 [facility] Comment on above: Performed By: #### 1 4601, [id number] #### [facility] [address] [facility] [place], [place] PARVOVIRUS B-19 ANTIBODIESon 09-13-2020 PARVOVIRUS B19 IGG 5.1 High <0.9 [facility] Comment on above: Order [facility] Site ID: AMD Name: Trusight/[facility] Address: [address] [place] [address] [place], [place] Director: Shalom Dumont M.D.,PhD Performed By: #### C BDYFLD #### [facility] [address] [facility] [place], [place] PARVOVIRUS B19 IGM 0.1 Normal <0.9 [facility] Comment on above: Order Comment: Mc rapp [place] Address Site ID: AMD Name: Cell[employer] Counts include 234 beds at the [facility] Address: [address] [place] [address] [place], [place] Director: Shalom Dumont M.D.,PhD Result Comment: Reference [...] Performed By: #### C BDYFLD #### [facility] [address] [facility] [address] Rash[place], [place] PROTHROMBIN TIME AND INRon 0 09-13-2020 INR Coag (PPP) [Relative time] 0.95 {INR} Normal 0.90-1.10 [facility] Comment on above: Performed By: #### 1 4601, [id number] #### [facility] [address] [facility] [address] [place], [place] PT Coag (PPP) [Time] 10.7 s Normal 9.7-12.9 [facility] Comment on above: Performed By: #### 1 4601, [id number] #### [facility] [address] [facility] [place], [place] RUBELLAon 09-13-2020 RUB 13.0 IU/mL Normal [facility] Comment on above: Order Comment: Nonre [...] IgG EIA assay. Values obtained with different tunnel kiln operator???s assay methods may not be used interchangeably. Performed By: #### C BDYFLD #### [facility] [address] [facility] [place], [place] RUBELLA INTERPRETATION Equivocal Normal [facility] Comment on above: Order Comment: Nonre [...] IgG EIA assay. Values obtained with different tunnel kiln operator???s assay methods may not be used interchangeably. Performed By: #### C BDYFLD #### [facility] [address] [place] [address] [place], [place] SYPHILIS WITH CONFIRMATIONon 09-13-2020 SYPHILIS TOTAL (IGG/IGM) Non-Reactive Normal Non-Reactive [facility] Comment on above: Order Comment: No Se rologic evidence of syphilis.A nonreactive result does not exclude the possibility of exposure to or infection with T. pallidum. Antibodies may be at low or undetectable levels in incubating or early primary disease and in some clinical conditions. Performed By: #### R BU #### [facility] [address] [place] [address], TPPA Normal [facility] Comment on above: Order Comment: No Se rologic evidence of syphilis.A nonreactive result does not exclude the possibility of exposure to or infection with T. pallidum. Antibodies may be at low or undetectable levels in incubating or early primary disease and in some clinical conditions. Performed By: #### R BU #### S [facility] LABORATORY [address] [place] [address], T4 BINDING GLOBULINon 2020 THYROXINE BINDING GLOBULIN 45.8 mcg/mL High 13.5-30.9 [facility] Comment on above: Order Comment: Mc rapp Agency Address Site ID: AMD Name: Trusight/Nessa MetzgerMurray [place] Address: [address] [place] [address] [place] [address] Director: Shalom Dumont M.D.,PhD Result Comment: To convert to nmol/L, multiply the result by 18.5. Performed By: #### C BDYFLD #### [facility] [address] [place] [address] [place], [place] THYROXINE (T4), FREEon 09-13 T4 F 0.69 ng/dL Normal 0.45-1.80 [facility] Comment on above: Performed By: #### 1 4601, [id number] #### [facility] [address] [facility] [place], [place] TOTAL PROTEIN WITH CREATININ E, RANDOM URINEon 09-13-2020 CREATININE, URINE 20 mg/dL Normal 10-300 [facility] Comment on above: Performed By: #### 1 4601, [id number] #### [facility] [address] [facility] [place], [place] TOTAL PROTEIN, URINE < 6 Normal <=100 [facility] Comment on above: Performed By: #### 1 4601, [id number] #### [facility] [address] [facility] [place], [place] TP/CREAT RATIO < 300 High <=164 [facility] Comment on above: Performed By: #### 1 4601, [id number] #### [facility] [address] [facility] [place], [place] TOX SCREEN W/CONFIRM - OB/GY Non 09-13-2020 ALCOHOL - TOX W/ CONF Negative Normal Cutoff: 10 [facility] Comment on above: Order Comment: Scree n results are reported as positive (at or above the cutoff) or negative (below the cutoff).The GC/MS testing (if applicable) was developed and its performance characteristics determined by [facility] in a manner consistent with CLIA requirements. This test has not been cleared or approved by the U.S. Food and Drug Administration; however, the FDA has determined that such clearance or approval is not necessary. Performed By: #### C BDYFLD #### [facility] [address] [facility] [place], [place] AMPH CL Negative Normal Cutoff: 1000 [facility] Comment on above: Order Comment: Scree n results are reported as positive (at or above the cutoff) or negative (below the cutoff).The GC/MS testing (if applicable) was developed and its performance characteristics determined by [facility] in a manner consistent with CLIA requirements. This test has not been cleared or approved by the U.S. Food and Drug Administration; however, the FDA has determined that such clearance or approval is not necessary. Performed By: #### C BDYFLD #### [facility] [address] [place], [place] CRISTAL CL Negative Normal Cutoff: 200 [facility] Comment on above: Order Comment: Scree n results are reported as positive (at or above the cutoff) or negative (below the cutoff).The GC/MS testing (if applicable) was developed and its performance characteristics determined by [facility] in a manner consistent with CLIA requirements. This test has not been cleared or approved by the U.S. Food and Drug Administration; however, the FDA has determined that such clearance or approval is not necessary. Performed By: #### C BDYFLD #### [facility] [address] [place], [place] BENZO CL Negative Normal Cutoff: 200 [facility] Comment on above: Order Comment: Scree n results are reported as positive (at or above the cutoff) or negative (below the cutoff).The GC/MS testing (if applicable) was developed and its performance characteristics determined by [facility] in a manner consistent with CLIA requirements. This test has not been cleared or approved by the U.S. Food and Drug Administration; however, the FDA has determined that such clearance or approval is not necessary. Performed By: #### C BDYFLD #### [facility] [address] [place], [place] COCAINE CL- TOX W/ CONF Negative Normal Cutoff: 300 [facility] Comment on above: Order Comment: Scree n results are reported as positive (at or above the cutoff) or negative (below the cutoff).The GC/MS testing (if applicable) was developed and its performance characteristics determined by [facility] in a manner consistent with CLIA requirements. This test has not been cleared or approved by the U.S. Food and Drug Administration; however, the FDA has determined that such clearance or approval is not necessary. Performed By: #### C BDYFLD #### [facility] [address] [place], [place] FENTANYL Negative Normal Cutoff: 1 [facility] Comment on above: Order Comment: Scree n results are reported as positive (at or above the cutoff) or negative (below the cutoff).The GC/MS testing (if applicable) was developed and its performance characteristics determined by [facility] in a manner consistent with CLIA requirements. This test has not been cleared or approved by the U.S. Food and Drug Administration; however, the FDA has determined that such clearance or approval is not necessary. Performed By: #### C BDYFLD #### [facility] [address] [facility] [place], [place] METH CL Negative Normal Cutoff: 300 [facility] Comment on above: Order Comment: Scree n results are reported as positive (at or above the cutoff) or negative (below the cutoff).The GC/MS testing (if applicable) was developed and its performance characteristics determined by [facility] in a manner consistent with CLIA requirements. This test has not been cleared or approved by the U.S. Food and Drug Administration; however, the FDA has determined that such clearance or approval is not necessary. Performed By: #### C BDYFLD #### [facility] [address] [place], [place] OPI CL Negative Normal Cutoff: 300 [facility] Comment on above: Order Comment: Scree n results are reported as positive (at or above the cutoff) or negative (below the cutoff).The GC/MS testing (if applicable) was developed and its performance characteristics determined by [facility] in a manner consistent with CLIA requirements. This test has not been cleared or approved by the U.S. Food and Drug Administration; however, the FDA has determined that such clearance or approval is not necessary. Performed By: #### C BDYFLD #### [facility] [address] [place], [place] OXYCODONE Negative Normal Negative, In Process [facility] Comment on above: Order Comment: Scree n results are reported as positive (at or above the cutoff) or negative (below the cutoff).The GC/MS testing (if applicable) was developed and its performance characteristics determined by [facility] in a manner consistent with CLIA requirements. This test has not been cleared or approved by the U.S. Food and Drug Administration; however, the FDA has determined that such clearance or approval is not necessary. Result Comment: Oxyc odone and metabolites of Oxycodone (Oxymorphone, Noroxycodone, and Noroxymorphone) are measured/detected in this assay method. Performed By: #### C BDYFLD #### [facility] [address] [facility] [place], [place] PCP CL Negative Normal Cutoff: 25 [facility] Comment on above: Order Comment: Scree n results are reported as positive (at or above the cutoff) or negative (below the cutoff).The GC/MS testing (if applicable) was developed and its performance characteristics determined by [facility] in a manner consistent with CLIA requirements. This test has not been cleared or approved by the U.S. Food and Drug Administration; however, the FDA has determined that such clearance or approval is not necessary. Performed By: #### C BDYFLD #### [facility] [address] [facility] [place], [place] THC CL - TOX W/ CONF Negative Normal Cutoff: 50 [facility] Comment on above: Order Comment: Scree n results are reported as positive (at or above the cutoff) or negative (below the cutoff).The GC/MS testing (if applicable) was developed and its performance characteristics determined by [facility] in a manner consistent with CLIA requirements. This test has not been cleared or approved by the U.S. Food and Drug Administration; however, the FDA has determined that such clearance or approval is not necessary. Performed By: #### C BDYFLD #### [facility] [address] [facility] [place], [place] TOXOPLASMOSIS IGGon 09-13-19 21 TOXOPLASMOSIS IGG AB Negative Normal Negative [facility] Comment on above: Performed By: #### 1 4601, [id number] #### [facility] [address] [facility] [place], [place] TRIIODOTHYRONINE (T3)on 08-18 T3 140.9 ng/dL Normal 87.0-179.0 [facility] Comment on above: Performed By: #### L D, CH8 #### [facility] [address] [place] [address], TRIIODOTHYRONINE (T3), FREEo n 09-13-2020 FT3 3.0 pg/mL Normal 2.3-4.2 [facility] Comment on above: Performed By: #### C BDYFLD #### [facility] [address] [place] [address] [place], [place] TSHon 09-13-2020 TSH 1.638 uIU/mL Normal 0.450-5.330 [facility] Comment on above: Result Comment: Refe birgit range for women as applicable: First Trimester: 0. 050 to 3.700 uIU/mL Second Trimester: 0. 310 to 4.350 uIU/mL Third Trimester: 0. 410 to 5.180 uIU/mL Performed By: #### G MARGIE BF #### [facility] [address] [place] [address], TYPE AND SCREENon 09-13-2020 ABO and Rh group Nom (Bld) Blood group A Rh(D) positive Normal [facility] Comment on above: Performed By: #### 1 4601, [id number] #### [facility] [address] [place] [address] [place], [place] ABO and Rh group Nom (Bld) No Previous Results Normal [facility] Comment on above: Performed By: #### 1 4601, [id number] #### [facility] [address] [place] [address] [place], [place] ABSC INT Negative Normal [facility] Comment on above: Performed By: #### 1 4601, [id number] #### [facility] [address] [place] [address] [place], [place] URIC ACIDon 09-13-2020 Urate [Mass/Vol] 6.0 mg/dL Normal 2.0-7.3 [facility] Comment on above: Performed By: #### C BDYFLD #### [facility] [address] [place] [address] [place], [place] CULTURE FOR BETA-HEMOLYTIC S TREPon 09-03-2020 CULTURE FOR BETA-HEMOLYTIC STREP C STREP: Negative for beta-hemolytic Streptococci group B. Normal [facility] Comment on above: Performed By: #### G MARGIE BF #### [facility] [address] [place] [address], [facility] Screen on 11-14-2018 Cholesterol in HDL mass conc 57 mg/dL Normal 40-59 [facility] Comment on above: Result Comment: ATP III [...] CHD Performed By: #### B WW #### [facility] [address] [place] [address] Cholesterol in LDL mass conc 108 mg/dL Normal 0-129 [facility] Comment on above: Result Comment: ATP III LDL Classification is Near Optimal. Performed By: #### B WW #### [facility] [address] [place] [address] Cholesterol mass conc 179 mg/dL Normal 0-199 [facility] Comment on above: Result Comment: ATP III Cholesterol classification is Desirable. Performed By: #### B WW #### [facility] [address] [place] [address] Glucose mass conc 83 mg/dL Normal 70-99 [facility] Comment on above: Result Comment: Effe ctive: 08/23/2018 New reference range for this analyte has been established. Performed By: #### B WW #### [facility] [address] [place] [address] Triglyceride mass conc 72 mg/dL Normal 0-150 [facility] Comment on above: Result Comment: ATP III Triglycerides Classification is Normal. Effective: 08/23/2018 New reference range for this analyte has been established. Performed By: #### B WW #### [facility] [address] [place] [address] EVENT MONITORon 08-03-2018 EVENT MONITOR [address] [address] EVENT MONITOR PATIENT NAME: KAVON RUBY : 1990 MED REC NO: [id number] ROOM: ACCOUNT NO: [id number] ADMIT DATE: 06/28/2018 PROVIDER: Erma Miles NAME [...] at 30 mg twice a day. ERMA SNOWERIK [id number] Doc#: [id number] CC: Jenna Bansal Normal [facility] CBC with Diffon 06-09-2018 Abs. Basophil 0.00 k/uL Normal 0.0-0.2 [facility] Comment on above: Performed By: #### Z FAST, CP, LIPR, MG, TSHX, VD25, CDP #### [facility] [address] [place] [address] Abs.Imm.Granulocyt e NOT REPORTED Normal 0.00-0.30 [facility] Comment on above: Performed By: #### Z FAST, CP, LIPR, MG, TSHX, VD25, CDP #### [facility] [address] [place] [address] Abs.Neutrophil (Seg) 4.90 k/uL Normal 2.5-7.0 [facility] Comment on above: Performed By: #### Z FAST, CP, LIPR, MG, TSHX, VD25, CDP #### [facility] [address] [place] [address] Auto Diff Performed NOT REPORTED Normal [facility] Comment on above: Performed By: #### Z FAST, CP, LIPR, MG, TSHX, VD25, CDP #### [facility] [address] [facility] [place] [address] Basophils/100 WBC (Bld) 0 % Normal 0-2 [facility] Comment on above: Performed By: #### Z FAST, CP, LIPR, MG, TSHX, VD25, CDP #### [facility] [address] [facility] [place] [address] Eosinophils #/vol (Bld) 0.10 10*3/uL Normal 0.0-0.4 [facility] Comment on above: Performed By: #### Zuly FAST, CP, LIPR, MG, TSHX, VD25, CDP #### [facility] [address] [facility] [place] [address] Eosinophils/100 WBC (Bld) 1 % Normal 0-5 [facility] Comment on above: Performed By: #### Zuly FAST, CP, LIPR, MG, TSHX, VD25, CDP #### [facility] [address] [facility] [place] [address] Erythrocyte distribution width Ratio (RBC) 16.3 % High 12.1-15.2 [facility] Comment on above: Performed By: #### Zuly FAST, CP, LIPR, MG, TSHX, VD25, CDP #### [facility] [address] [facility] [place] [address] Hematocrit Volume Fraction (Bld) 36.4 % Normal 36-46 [facility] Comment on above: Performed By: #### Zuly FAST, CP, LIPR, MG, TSHX, VD25, CDP #### [facility] [address] [facility] [place] [address] Hemoglobin mass conc (Bld) 11.7 g/dL Low 12.0-16.0 [facility] Comment on above: Performed By: #### Zuly FAST, CP, LIPR, MG, TSHX, VD25, CDP #### [address] [place] [address] Immature granulocytes #/vol (Bld) NOT REPORTED Normal 0 [facility] Comment on above: Performed By: #### Zuly FAST, CP, LIPR, MG, TSHX, VD25, CDP #### [place] [address] Lymphocytes #/vol (Bld) 3.30 10*3/uL Normal 1.0-4.8 [facility] Comment on above: Performed By: #### Zuly FAST, CP, LIPR, MG, TSHX, VD25, CDP #### [address] [place] [address] Lymphocytes/100 WBC (Bld) 38 % Normal 15-40 [facility] Comment on above: Performed By: #### Zuly FAST, CP, LIPR, MG, TSHX, VD25, CDP #### [facility] [address] [place] [address] MCH Entitic mass (RBC) 24.3 pg Low 26-34 [facility] Comment on above: Performed By: #### Zuly FAST, CP, LIPR, MG, TSHX, VD25, CDP #### [address] [place] [address] MCHC mass conc (RBC) 32.1 g/dL Normal 31-37 [facility] Comment on above: Performed By: #### Zuly FAST, CP, LIPR, MG, TSHX, VD25, CDP #### [address] [place] [address] MCV Entitic volume (RBC) 75.6 fL Low 80-100 [facility] Comment on above: Performed By: #### Zuly FAST, CP, LIPR, MG, TSHX, VD25, CDP #### [facility] [address] [facility] [place] [address] Monocytes #/vol (Bld) 0.40 10*3/uL Normal 0.0-1.0 [facility] Comment on above: Performed By: #### Z FAST, CP, LIPR, MG, TSHX, VD25, CDP #### [facility] [address] [facility] [place] [address] Monocytes/100 WBC (Bld) 4 % Normal 4-8 [facility] Comment on above: Performed By: #### Z FAST, CP, LIPR, MG, TSHX, VD25, CDP #### [facility] [address] [facility] [place] [address] Morphology Interp Cody (Bld) FEW Normal [facility] Comment on above: Result Comment: LARG E PLATELETS OCCASIONAL GIANT PLATELETS Performed By: #### Z FAST, CP, LIPR, MG, TSHX, VD25, CDP #### [facility] [address] [facility] [place] [address] Neutrophil (Seg) 57 % Normal 47-75 [facility] Comment on above: Performed By: #### Z FAST, CP, LIPR, MG, TSHX, VD25, CDP #### [facility] [address] [facility] [place] [address] NRBC Automated NOT REPORTED Normal [facility] Comment on above: Performed By: #### Z FAST, CP, LIPR, MG, TSHX, VD25, CDP #### [facility] [address] [facility] [place] [address] Platelet mean volume Entitic volume (Bld) NOT REPORTED Normal 6.0-12.0 [facility] Comment on above: Performed By: #### Z FAST, CP, LIPR, MG, TSHX, VD25, CDP #### [facility] [address] [facility] [place] [address] Platelets #/vol (Bld) NOT REPORTED Normal [facility] Comment on above: Performed By: #### Z FAST, CP, LIPR, MG, TSHX, VD25, CDP #### [facility] [address] [facility] [place] [phone] Platelets #/vol (Bld) 194 10*3/uL Normal 140-450 [facility] Comment on above: Performed By: #### Z FAST, CP, LIPR, MG, TSHX, VD25, CDP #### [facility] [address] [facility] [place] [address] RBC #/vol (Bld) 4.82 10*6/uL Normal 4.0-5.2 [facility] Comment on above: Performed By: #### Z FAST, CP, LIPR, MG, TSHX, VD25, CDP #### [address] [place] [address] RBC morphology finding Nom (Bld) NOT REPORTED Normal [facility] Comment on above: Performed By: #### Zuly FAST, CP, LIPR, MG, TSHX, VD25, CDP #### [facility] [address] [facility] [place] [phone] WBC #/vol (Bld) 8.7 10*3/uL Normal 3.5-11.0 [facility] Comment on above: Performed By: #### Zuly FAST, CP, LIPR, MG, TSHX, VD25, CDP #### [facility] [address] [facility] [place] [address] WBC Morphology NOT REPORTED Normal [facility] Comment on above: Performed By: #### Z FAST, CP, LIPR, MG, TSHX, VD25, CDP #### [facility] [address] [facility] [place] [id number] Comp Metabolic Profon 2017 (cont.) Normal [facility] Comment on above: Result Comment: Aver age GFR for 20-29 years old: 116 mL/min/1.73sq m Chronic Kidney Disease: <60 mL/min/1.73sq m Kidney failure: <15 mL/min/1.73sq m eGFR calculated using average adult body mass. Additional eGFR calculator available at: http://www.ReliOn/multiple_crcl_2012.htm Performed By: #### Z FAST, CP, LIPR, MG, TSHX, VD25, CDP #### [facility] [address] [place] [address] Albumin mass conc 4.3 g/dL Normal 3.5-5.2 [facility] Comment on above: Performed By: #### Zuly FAST, CP, LIPR, MG, TSHX, VD25, CDP #### [facility] [address] [place] [address] Albumin/Globulin mass ratio NOT REPORTED Normal 1.0-2.5 [facility] Comment on above: Performed By: #### Zuly FAST, CP, LIPR, MG, TSHX, VD25, CDP #### [facility] [address] [place] [address] Alkaline Phos 77 U/L Normal 35-104 [facility] Comment on above: Performed By: #### Z FAST, CP, LIPR, MG, TSHX, VD25, CDP #### [facility] [address] [place] [address] ALT enzyme act/vol 28 U/L Normal 5-33 [facility] Comment on above: Performed By: #### Z FAST, CP, LIPR, MG, TSHX, VD25, CDP #### [facility] [address] [place] [address] Anion gap molar conc 11 mmol/L Normal 9-17 [facility] Comment on above: Performed By: #### Z FAST, CP, LIPR, MG, TSHX, VD25, CDP #### [facility] [address] [place] [address] AST enzyme act/vol 25 U/L Normal <32 [facility] Comment on above: Performed By: #### Zuly FAST, CP, LIPR, MG, TSHX, VD25, CDP #### [facility] [address] [facility]. [place] [id number] Bilirubin Ql (U) 0.30 mg/dL Normal 0.30-1.20 [facility] Comment on above: Performed By: #### Zuly FAST, CP, LIPR, MG, TSHX, VD25, CDP #### [facility] [address] [place] [address] BUN/CRE Ratio 27 High 9-20 [facility] Comment on above: Performed By: #### Zuly FAST, CP, LIPR, MG, TSHX, VD25, CDP #### [facility] [address] [place] [address] Calcium mass conc 9.2 mg/dL Normal 8.6-10.4 [facility] Comment on above: Performed By: #### Zuly FAST, CP, LIPR, MG, TSHX, VD25, CDP #### [facility] [address] [place] [address] Chloride molar conc 102 mmol/L Normal 98-107 [facility] Comment on above: Performed By: #### Zuly FAST, CP, LIPR, MG, TSHX, VD25, CDP #### [facility] [address] [place] [address] CO2 molar conc 27 mmol/L Normal 20-31 [facility] Comment on above: Performed By: #### Zuly FAST, CP, LIPR, MG, TSHX, VD25, CDP #### [facility] [address] [place] [address] Creatinine mass conc 0.45 mg/dL Low 0.50-0.90 [facility] Comment on above: Performed By: #### Z FAST, CP, LIPR, MG, TSHX, VD25, CDP #### [facility] [address] [facility] [place] [address] GFR, Amer >60 Normal >60 [facility] Comment on above: Performed By: #### Z FAST, CP, LIPR, MG, TSHX, VD25, CDP #### [facility] [address] [facility] [place] [address] GFR,non Amer >60 Normal >60 [facility] Comment on above: Performed By: #### Z FAST, CP, LIPR, MG, TSHX, VD25, CDP #### [facility] [address] [facility] [place] [address] Glucose mass conc 80 mg/dL Normal 70-99 [facility] Comment on above: Performed By: #### Zuly FAST, CP, LIPR, MG, TSHX, VD25, CDP #### [facility] [address] [facility] [place] [address] Potassium molar conc 4.1 mmol/L Normal 3.7-5.3 [facility] Comment on above: Performed By: #### Z FAST, CP, LIPR, MG, TSHX, VD25, CDP #### [facility] [address] [facility] [place] [address] Protein mass conc 8.1 g/dL Normal 6.4-8.3 [facility] Comment on above: Performed By: #### Z FAST, CP, LIPR, MG, TSHX, VD25, CDP #### [facility] [address] [facility] [place] [address] Sodium molar conc 140 mmol/L Normal 135-144 [facility] Comment on above: Performed By: #### Z FAST, CP, LIPR, MG, TSHX, VD25, CDP #### [facility] [address] [facility] [place] [address] Staging: NOT REPORTED Normal [facility] Comment on above: Performed By: #### Z FAST, CP, LIPR, MG, TSHX, VD25, CDP #### [facility] [address] [facility] [place] [phone] Urea nitrogen mass conc 12 mg/dL Normal 6-20 [facility] Comment on above: Performed By: #### Z FAST, CP, LIPR, MG, TSHX, VD25, CDP #### [facility] [address] [facility] [place] [address] Lipid Profileon 06-09-2018 Cholesterol in HDL mass conc 66 mg/dL Normal >40 [facility] Comment on above: Result Comment: HDL Guidelines: <40 Undesirable 40-59 Borderline >59 Desirable Performed By: #### Z FAST, CP, LIPR, MG, TSHX, VD25, CDP #### [facility] [address] [facility]. [place] [phone] Cholesterol in LDL mass conc 133 mg/dL High 0-130 [facility] Comment on above: Result Comment: LDL Guidelines: <100 Desirable 100-129 Near to/above Desirable 130-159 Borderline >159 Undesirable Direct (measured) LDL and calculated LDL are not interchangeable tests. Performed By: #### Z FAST, CP, LIPR, MG, TSHX, VD25, CDP #### [facility] [address] [facility] [place] [address] Cholesterol in VLDL mass conc NOT REPORTED Normal 1-30 [facility] Comment on above: Performed By: #### Z FAST, CP, LIPR, MG, TSHX, VD25, CDP #### [facility] [address] [facility] [place] [address] Cholesterol mass conc 217 mg/dL High <200 [facility] Comment on above: Result Comment: Cholesterol Guidelines: <200 Desirable 200-240 Borderline >240 Undesirable Performed By: #### Z FAST, CP, LIPR, MG, TSHX, VD25, CDP #### [facility] [address] [facility] [place] [phone] Cholesterol.total/ Cholesterol in HDL mass ratio 3.3 {ratio} Normal <5 [facility] Comment on above: Performed By: #### Z FAST, CP, LIPR, MG, TSHX, VD25, CDP #### [facility] [address] [facility] [place] [address] [phone]) Triglyceride mass conc 91 mg/dL Normal <150 [facility] Comment on above: Result Comment: Triglyceride Guidelines: <150 Desirable 150-199 Borderline 200-499 High >499 Very high Based on AHA Guidelines for fasting triglyceride, April 2012. Performed By: #### Z FAST, CP, LIPR, MG, TSHX, VD25, CDP #### [facility] [address] [facility] [place] [address] ([phone]) Magnesiumon 06-09-2018 Magnesium mass conc 2.3 mg/dL Normal 1.6-2.6 [facility] Comment on above: Performed By: #### Zuly FAST, CP, LIPR, MG, TSHX, VD25, CDP #### [facility] [address] [facility] [place] [address] ([phone] Patient fasting?on 8 Patient fasting? YES Normal [facility] Comment on above: Performed By: #### Z FAST, CP, LIPR, MG, TSHX, VD25, CDP #### [facility] [address] [facility] [place] [address] [phone] TSH w/reflex to FT4on 2017 Thyrotropin Qn 1.44 m[IU]/L Normal 0.30-5.00 [facility] Comment on above: Performed By: #### Z FAST, CP, LIPR, MG, TSHX, VD25, CDP #### [facility] [address] [facility] [place] [address] ([phone]) Vitamin D 25 OHon 06-09-2018 Vitamin D 25 [place] 13.1 ng/mL Low 30.0-100.0 [facility] Comment on above: Result Comment: Reference Range: Vitamin D status Range Deficiency <20 ng/mL Mild Deficiency 20-30 ng/mL Sufficiency 30-100 ng/mL Toxicity >100 ng/mL Performed By: #### Z FAST, CP, LIPR, MG, TSHX, VD25, CDP #### [facility] [address] [place], [place] [id number] XR CHEST (2 VW)on 06-09-2018 XR CHEST (2 VW) TWO-VIEW CHEST REASON FOR STUDY: Tachycardia. COMPARISON: None. REPORT: Trachea, mediastinum, heart size, diaphragm, and bony elements are intact. No effusion or nodule or pneumothorax is noted. The diaphragm and bony elements are unremarkable. IMPRESSION: Nonacute two-view chest. Interpreted by: Sourav Parisi DO Signed by: Sourav Parisi DO 06/09/18 Final result Normal [facility] Social History Date Type Detail Facility Start: 10-26-2022 Tobacco use and exposure Smokeless tobacco non-user [facility] Phone: Start: 07-02-2022 [employer] [email or web address] Start: 06-16-2016 End: 10-26-2022 Tobacco smoking status TXIS Never smoker [facility] Start: 06-16-2016 End: 10-26-2022 Alcohol intake Current non-drinker of alcohol (finding) [facility] Start: 1990 Sex Assigned At Not on file C [facility] Start: 1990 Sex Assigned At Female F [facility] Sex Assigned At [facility] Other Tobacco smoking status [facility] Tobacco smoking consumption unknown [facility] Vital Signs Date Time Vital Sign Value Performing Clinician Facility 07-06-2023 16:25-0500 Body height 163.83 cm Alanis Zaidi Other [facility] Other 07-06-2023 16:25-0500 Body mass index (BMI) [Ratio] 37.85 kg/m2 Alanis Zaidi Other [facility] Other 07-06-2023 16:25-0500 Body temperature 100 [degF] Alanis Zaidi Other [facility] Other 07-06-2023 16:25-0500 Body weight 101.61 kg Alanis Zaidi Other [facility] Other 07-06-2023 16:25-0500 Respiratory rate 18 /min Alanis Zaidi Other [facility] Other 07-06-2023 16:25-0500 SaO2% (BldA) [Mass fraction] 99 % Alanis Zaidi Other [facility] Other 10-08-2022 03:06-0400 Body weight 125.6472 kg LUIS CAMACHO [facility] Comment on above: Performed By: #### CBC #### [facility] [address] [place] [address] Dr. Brenna Mann Evaluation note 07-06-2023 Note Date & Type [...] understanding and is agreeable to treatment plan [facility] Other Clinical Note 08-21-2022 Note Date & [...] by: JUNE AC Date: 2022-08-21 18:04 [facility] Clinical Note 11-17-2020 Note Date & Type Note Facility 11-17-2020 Note Outreach team called pt to schedule post- visit. Pt informed that she has transferred care to another hospital system. [facility] Discharge summary note 10-07-2020 Note Date & Type Note Facility 10-07-2020 Note DISCHARGE SUMMARY [address] [id number] Kavon Chao Date of : 1990 29 year old female Attending Raúl Date of Admission 09/13/2020 Date of Discharge 09/15/2020 [Principal Hospital Problem (Final Diagnosis)] S/P section [Secondary Hospital Problems] Intrauterine affecting management of mother Hemorrhage Acute Blood Loss Anemia History of prior section Click the Form Tab Delivery Information Delivery Date/Time: 09/14/2020 @ 8:52 AM Infant weight: 7 lb 7.2 oz (3.38 kg) [...] of labor for intrauterine demise. Made slow exchange consultant course of 24h. Following epidural placement on HD#2, patient found to be symptomatically hypotensive and required ongoing management from anesthesia. Bedside evaluation at this time revealed cervical dilation of 5cm, minimal exchange consultant preceding 8 hours. On tocometry, tachysystole appreciate [...] [place]. Findings were delivery of a demised . QBL intraoperatively 2.2 L. Please see dictated [...] her routine visit in four weeks at [facility]. Discharge instructions included pelvic rest for six weeks and no heavy lifting greater than 10 pounds for six weeks. No future appointments. Carmen Sveta Anni, MD, MPH PGY-3, Obstetrics and Gynecology [facility] Note 06-27-2016 Telephone Encounter - Britta Molina RN - 06/27/2016 10:29 AM ESTTelephone Encounter - Rosa Coats - 06/27/2016 8:53 AM EST Note Date & Type Note Facility 06-27-2016 Miscellaneous Notes Returned patient's call and informed her that labs that were drawn at an outside lab [facility] Patient verbalizes understanding. Kavon Curran called today. : 1990 Allergies: Adhesive Tape (Rosins) (home) Reason for call: patient calling asking if her external labs from [facility] could be released into [facility]. Patient last appointment: Visit date not found The patients preferred pharmacy has been captured for this encounter? not asked Rosa Lowe documented in this encounter [facility] Evaluation note Note Date & Type Note Facility Evaluation note No assessment information availa [facility] Work Phone: History general Narrative - Reported Note Date & Type Note Facility History general Narrative - Reported Type Surgical History x2 Surgical History Oral surgery Hospitalization History See above [facility] Other Summary Purpose Family History No Family [...] section and content) DATE CREATED AUTHOR 11/20/2018 [facility] DATE CREATED AUTHOR AUTHOR'S ORGANIZ ATION 12/07/2018 [facility] DATE CREATED AUTHOR AUTHOR'S ORGANIZ ATION 08/20/2021 [facility] DATE CREATED AUTHOR AUTHOR'S ORGANIZ ATION 03/09/2022 [facility] DATE CREATED AUTHOR AUTHOR'S ORGANIZ ATION 10/09/2022 [facility] DATE CREATED AUTHOR AUTHOR'S ORGANIZ ATION 12/25/2022 [facility] DATE CREATED AUTHOR AUTHOR'S ORGANIZ ATION 02/16/2023 [facility] DATE CREATED AUTHOR AUTHOR'S ORGANIZ ATION 08/25/2023 [facility] DATE CREATED AUTHOR AUTHOR'S ORGANIZ ATION 11/24/2023 [facility] [employer] Source Comments (unrecognize d section and content) In the event this informatio n is protected by the Federal Confidentiality of Alcohol and Drug Abuse Patient Records regulations: The Federal rules restrict any use of the information to criminally investigate or prosecute any alcohol or drug abuse patient.[facility] Reason for Visit (unrecogniz ed section and content) Reason Onset Date Comments Results 06/27/2016 Care Teams (unrecognized sec tion and content) Drug Counselor Relationship Specialty Start Date End Date Jenna Bansal [address] [place] [phone] PCP - General Family Medicine 12/14/17 Team Status: Active Member Role Status Dates Jenna Bansal PA-C Primary Care Provider Active Team Status: Inactive Member Role Status Dates Jenna Bansal PA-C Primary Care Provider Active Alanis Zaidi APRN Attending Provider Active Drug Counselor Relationship Specialty Start Date End Date Nabor Marroquin DO [address] [place], [place] [phone] Physician Obstetrics/Gynecology 06/19/20 Duncan Nguyễn MD [address] [place] [phone] Physician Neuropathology 09/18/20 Yudy Agudelo MD [address] [place] [id number] Resident Obstetrics/Gynecology 10/16/20 Goals (unrecognized section [...] BE BASED ON THE PRIMARY CLINICAL RECORDS. [facility] [employer] [facility]. provides no warranty or guarantee of the accuracy or completeness of information in this document.
[2023-12-25 07:26] LABS: Estimated Average Glucose 103 mg/dL; Glycohemoglobin A1C 5.2 % (4.5-6.2)
[2023-12-25 07:58] LABS: Basophils Percent Auto 0.3 % (0.2-2.0); Eosinophils Absolute Auto 0.2 10^3/uL (0.0-0.7); Eosinophils Percent Auto 1.9 % (0.9-7.0); Hematocrit 37.3 % (36.0-48.0); Hemoglobin 11.2 g/dL (12.0-16.0); Immature Granulocytes Abs Auto 0.04 10^3/uL (0.00-0.03); Immature Granulocytes Pct Auto 0.5 % (0.0-0.5); Lymphocytes Absolute Auto 3.5 10^3/uL (1.2-3.8); Lymphocytes Percent Auto 40.3 % (20.5-60.0); Mean Corpuscular Hemoglobin 23.7 pg (26.7-34.0); Mean Platelet Volume 12.7 fL (9.5-13.5); Monocytes Absolute Auto 0.4 10^3/uL (0.3-0.8); Monocytes Percent Auto 5.1 % (1.7-12.0); Neutrophils Absolute Auto 4.5 10^3/uL (1.4-6.5); Neutrophils Percent Auto 51.9 % (43.0-75.0); Platelet Count 210 10^3/uL (150-450); Red Blood Count 4.72 10^6/uL (4.20-5.40); Red Cell Distribution Width 15.3 % (11.0-15.0); White Blood Count 8.6 10^3/uL (4.0-11.0)
[2023-12-25 10:40] LABS: Alanine Aminotransferase 19 U/L (14-59); Albumin Globulin Ratio 0.8; Albumin Level 3.2 g/dL (3.4-5.0); Alkaline Phosphatase 56 U/L (46-116); Anion Gap 12.1; Aspartate Amino Transferase 14 U/L (15-37); BUN Creatinine Ratio 28.1; Bilirubin Total 0.3 mg/dL (0.2-1.0); Calcium 8.5 mg/dL (8.5-10.1); Chloride 104 mmol/L (98-107); Cholesterol 172 mg/dL (<=200); Estimated GFR (African America >60 (>=60); Estimated GFR (Non-African Ame >60 (>=60); Free T3 2.42 pg/mL (2.18-3.98); Glucose 84 mg/dL (74-106); HDL Cholesterol 58 mg/dL (40-60); LDL Cholesterol Calculated 98.6 mg/dL; Potassium 4.1 mmol/L (3.5-5.1); Sodium 139 mmol/L (136-145); Thyroid Stimulating Hormone 1.455 uIU/mL (0.358-3.740); Total Protein 7.2 g/dL (6.4-8.2); Triglycerides 77 mg/dL (<=150); VLDL CHOLESTEROL 15.4 mg/dL
[2023-12-26 10:10] LABS: Insulin 9.3 uIU/mL (2.6-24.9)
== END 2023-12-25 06:47 | disposition home or self-care (01) ==
LOC: LAB 06:47
PROVIDERS: PCP Family Medicine; Visit Provider Family Medicine
DX: Z00.00 Encounter for general adult medical examination without abnormal findings (principal)
CPT/HCPCS: 36415; 80053; 80061; 83036; 83525; 83540; 84436; 84443; 84481; 85025

== ENCOUNTER 2024-11-25 19:41 | Outpatient (REF) | payer OTHER, SELFPAY ==
--- OUTSIDE RECORDS SUMMARY | 2024-11-25 19:48 | XMS_ITS | CCD ---
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 Name Role Phone GINGER, DAT S Referring [...] Care Provider UnavailLidia Goodrich Primary Care Provider [phone] NABOR MARROQUIN Referring Unavailable PROVIDER, UNKNOWN Attending [...] LUIS Attending Unavailable DOUG, LUIS Admitting Unavailable [place] ANTHONY, DR JR Da Silva Consulting Unavailable HOY [...] Unavailable ZIEBER, DR LINO Funk Consulting Unavailable [place] ANTHONY, DR JR Da Silva Consulting Unavailable HOY ., DR WHITE Primary Care Unavailable DOUG, LUIS Attending Unavailable DOUG, LUIS Admitting Unavailable DOUG, LUIS Consulting Unavailable DOUG, LUIS Consulting Unavailable HOY ., DR WHITE Primary Care Unavailable DOUG, LUIS Attending Unavailable DOUG, LUIS Admitting Unavailable ZIEBER, DR LINO Funk Consulting Unavailable Jenna Bansal Primary Care Provider HOMER RAMOS Referring Unavailable JENNA BANSAL Primary Care Unavailable KOTA Bansal Primary Care Provider TUCKER Zaidi Attending Provider [phone] Alanis Zaidi Unavailable Nabor Marroquin DO Unavailable [phone] Duncan Nguyễn MD Unavailable [phone] Yudy Agudelo MD Unavailable Jenna Bansal Primary Care Unavailable Alanis Zaidi Admitting Unavailable Alanis Zaidi Attending Unavailable Jenna Bansal Primary Care Unavailable Luis Camacho Admitting Unavailable Luis Camacho Attending Unavailable LUIS CAMACHO Attending Unavailable LUIS CAMACHO Attending Unavailable LUIS CAMAHCO Attending Unavailable Christopher Ramsey MD Primary Care Provider [phone] Christopher Ramsey MD Primary Care Provider [phone] Allergies Allergy Classification Reported Allergen(s) Allergy Type Date of Onset Reaction(s) Facility Adhesive Tape (1 source) Adhesive Tape Substance Allergy 6 Rash [facility] (2 sources) BANDAGE TAPE; Translations: [BANDAGE TAPE] Propensity to adverse reactions (disorder) 6 Rash [facility] (3 sources) Adhesive Tape; Translations: [ADHESIVE TAPE] Propensity to adverse reactions (disorder) 8 [facility] (1 source) Adhesive bandage Drug allergy (disorder) [facility] (1 source) tape adhesive Propensity to adverse reactions rash [facility] Other Medications Current Medications Medication Drug Class(es) Dates Sig (Normalized) Sig (Original) Aircast Sport Ankle Brace/Left - (1 source) Start: 07-06-2023 Aircast Sport Ankle Brace/Left - as directed Jun, Active Aspirin (1 source) Platelet Aggregation Inhibitor, Nonsteroidal Anti-inflammatory Drug BABY ASPIRIN PO Take by mouth 0 Active desogestrel 0.15 mg / ethinyl estradiol 0.03 mg oral tablet (3 sources) Progestin, Estrogen Start: 03-21-2024 End: 06-13-2024 take 1 tablet by mouth once daily, then take 1 tablet by mouth once daily desogestrel-ethin yl estradiol (Apri) 0.15-30 MG-MCG tablet Indications: PMDD (premenstrual dysphoric disorder) ([facility]) Take 1 tablet by mouth Daily Take 1 tablet by mouth daily 84 tablet 3 03/21/2024 Active docusate sodium 100 mg oral capsule [...] Active magnesium oxide 400 mg oral tablet (5 sources) Start: 11-01-2023 take 1 tablet by mouth once daily as needed magnesium oxide (Mag-Ox) 400 MG tablet Indications: Headache, unspecified TAKE 1 TABLET BY MOUTH EVERY DAY NEEDED FOR 30 DAYS 30 tablet 3 11/01/2023 Active Start: 10-17-2022 take 1 tablet by chaim th once daily as needed magnesium oxide (MAG-OX) 400 MG tablet TAKE 1 TABLET BY MOUTH EVERY DAY NEEDED FOR 30 DAYS 0 10/17/2022 Active metoprolol tartrate 25 mg oral tablet (1 source) beta-Adrenergic [place] Start: 07-30-2020 take 1 tablet by mouth twice daily metoprolol (LOPRESSOR) 25 MG tablet Take 1 Tablet by mouth 2 times daily. 60 Tablet 3 07/30/2020 Active Pediatric Multiple Vitamins (FLINSTONES GUMMIES OMEGA-3 DHA PO) (3 sources) Pediatric Multiple Vitamins (FLINSTONES GUMMIES OMEGA-3 DHA PO) Take by mouth Active polyethylene glycol 3350 16651 mg powder for oral solution (1 source) [...] VITAMINS PO) Take by mouth 0 Active Semaglutide-Weigh t Management 1.7 MG/0.75ML solution auto-injector (3 sources) Start: 03-08-2024 inject 0.5 mL by subcutaneous injection every week Semaglutide-Weig ht Management 1.7 MG/0.75ML solution auto-injector 0.5 mL Subcutaneous Once Weekly for 30 days 03/08/2024 Active sennosides, halfway 8.6 mg oral tablet (1 source) Start: [...] Problem Date Documented Date Episodic/Chronic Cardiac dysrhythmias (6 sources) Supraventricular tachycardia; Translations: [Supraventricular tachycardia] Onset: 06-22-2018 06-22-2018 Chronic Coagulation and hemorrhagic disorders (4 sources) Disorder of hemostatic system; Translations: [Coagulation defect, unspecified] Onset: 01-24-2023 01-24-2023 Chronic Genitourinary symptoms and ill-defined conditions (1 source) Dysuria; Translations: [Dysuria] Episodic Menstrual disorders (4 sources) Irregular menstruation, unspecified; Translations: [Amenorrhea] Onset: 08-29-2022 Chronic Mood disorders (2 sources) Premenstrual dysphoric disorder; Translations: [Premenstrual dysphoric disorder] 03-21-2024 Chronic Other complications of (2 sources) Maternal [...] , unspecified, first trimester] Onset: 07-18-2022 Episodic Residual codes; unclassified (1 source) 15 [...] Translations: [Injury, unspecified, initial encounter] Onset: 07-06-2023 Unclassified (4 sources) OB Reminders Onset: 01-02-2023 01-02-2023 Urinary tract infections (1 source) Urinary tract infectious disease; Translations: [UTI (lower urinary tract infection)] Episodic Past or Other Problems Problem Classification Problem Date Documented Date Episodic/Chronic Abdominal pain (4 sources) Pain in female pelvis; Translations: [Pelvic and perineal pain] Onset: 01-24-2023 01-24-2023 Episodic Diabetes or abnormal glucose tolerance complicating ; childbirth; or the puerperium (1 source) Abnormal glucose complicating ; Translations: [Abnormal glucose complicating ] Onset: 12-24-2022 Episodic Hemorrhage during ; abruptio placenta; placenta previa (12 sources) Other antepartum hemorrhage, first trimester; Translations: [Antepartum hemorrhage, unspecified, first trimester] Onset: 08-21-2022 Episodic Immunizations and screening for infectious disease (1 source) Encounter for screening for human papillomavirus (HPV); Translations: [ENC SCREENING HUMAN PAPILLOMAVIRUS] Onset: 07-08-2022 Episodic Other complications of ; puerperium affecting management of mother (6 sources) Abnormality of heart; Translations: [ ventricular septal defect affecting antepartum care of mother] Onset: 01-11-2018 01-11-2018 Episodic Other complications of ; puerperium affecting management of mother (5 sources) , affecting management of mother; Translations: [Maternal care for intrauterine , not applicable or unspecified] Onset: 09-13-2020 09-13-2020 Episodic Other complications of (6 sources) Supervision of with other poor reproductive or obstetric history, third trimester; Translations: [ with other poor obstetric history] Onset: 01-11-2018 01-11-2018 Episodic Other complications of (2 sources) Supervision of other high risk pregnancies, second trimester; Translations: [Supervision of other high risk pregnancies, second trimester] Onset: 10-26-2022 Episodic Other connective tissue disease (4 sources) Ganglion cyst of left hand; Translations: [Ganglion, left hand] Onset: 02-07-2022 01-24-2023 Episodic Other screening for suspected conditions (not mental disorders or infectious disease) (18 sources) Encounter for screening, unspecified; Translations: [Encounter for other screening for genetic and chromosomal anomalies] Onset: 01-11-2018 Episodic Other skin disorders (4 sources) Localized swelling, mass and lump, right upper limb; Translations: [Localized superficial swelling, mass, or lump] Onset: 01-24-2023 01-24-2023 Episodic Polyhydramnios and other problems of amniotic cavity (5 sources) Other specified disorders of amniotic fluid and membranes, second trimester, not applicable or unspecified; Translations: [Disorder of amniotic cavity AND/OR membrane] Onset: 10-07-2022 01-24-2023 Episodic Residual codes; unclassified (2 sources) Personal history of other complications of , childbirth and the puerperium; Translations: [Personal history of other complications of , childbirth and the puerperium] Onset: 10-26-2022 Episodic Residual codes; unclassified (4 sources) Dyssomnia; Translations: [Sleep disorder, unspecified] Onset: 01-24-2023 01-24-2023 Episodic Residual codes; unclassified (4 sources) History of intrauterine ; Translations: [Personal history of other complications of , childbirth and the puerperium] Onset: 01-24-2023 01-24-2023 Episodic Residual codes; unclassified (3 sources) Pain and tenderness; Translations: [Pain, unspecified] Onset: 01-24-2023 01-24-2023 Episodic Residual codes; unclassified (1 source) Pain; Translations: [Pain, unspecified] Onset: 01-24-2023 01-24-2023 Episodic Results Test Name Value Interpretation Reference Range Facility XR ankle LT min 3V*on 2022 XR ankle LT min 3V* [facility] [address] XRay Report Signed Patient: Kavon Swain MR#: [id number] : 1990 Acct:[id number] Age/Sex: 32 / F ADM Date: 07/06/23 Loc: XDUCLY Room: Type: [facility] Attending Dr: Alanis Zaidi APRN Copies to: [...] Vira Pulliam M.D.07/06/2023 5:18 PM Dictation Location: [place] [address] Transcribed By: [facility] 07/06/231717 Dictated By: Vira Pulliam MD 07/06/231715 Signed By: 07/06/231717 Normal [facility] XR ankle LT min 3V* [facility] [email or web address] Other XR ankle LT min 3V* [facility] [email or web address] Other XR ankle LT min 3V* [address] [place] [address] [facility] Other XR ankle LT min 3V* [place] [address] [facility] Other XR ankle LT min 3V* XRay Report [facility] Other XR ankle LT min 3V* Signed [facility] Other XR ankle LT min 3V* Patient: Kavon Swain MR#: [facility] Other XR ankle LT min 3V* [id number] [facility] Other XR ankle LT min 3V* : 1990 Acct:[id number] [facility] Other XR ankle LT min 3V* Age/Sex: 32 / F ADM Date: 07/06/23 [facility] Other XR ankle LT min 3V* Loc: XDUCLY Room: Type: [facility] Other XR ankle LT min 3V* Attending Dr: Alanis Zaidi APRN [facility] Other XR ankle LT min 3V* Copies to: Alanis Zaidi APRN [facility] Other XR ankle LT min 3V* Ordering Provider: Alanis Zaidi APRN [facility] Other XR ankle LT min 3V* Date of Service: 07/06/23 [facility] Other XR ankle LT min 3V* XR/XR ankle LT min 3V*: Injury [facility] Other XR ankle LT min 3V* LEFT ANKLE - 3 views [facility] Other XR ankle LT min 3V* CLINICAL DATA: Twisting injury left ankle 12 days ago with continued pain and bruising. [facility] Other XR ankle LT min 3V* COMPARISON: None [facility] Other XR ankle LT min 3V* AP, lateral and oblique views were obtained. There is no evidence of fracture or dislocation. [facility] Other XR ankle LT min 3V* The talar dome is intact. There is diffuse soft tissue swelling. [facility] Other XR ankle LT min 3V* XR/XR ankle LT min 3V* [facility] Other XR ankle LT min 3V* IMPRESSION: [facility] Other XR ankle LT min 3V* NO ACUTE BONY INJURY. [facility] Other XR ankle LT min 3V* Impression dictated by: Vira Pulliam M.D.07/06/2023 5:18 PM [facility] Other XR ankle LT min 3V* Dictation Location: [place] [address] [facility] Other XR ankle LT min 3V* Transcribed By: EFRAIN 07/06/23 1718 [facility] Other XR ankle LT min 3V* Dictated By: Vira Pulliam MD 07/06/23 1716 [facility] Other XR ankle LT min 3V* Signed By: [facility] Other XR ankle LT min 3V* 07/06/23 1713 [facility] Other Glucose Tolerance 3 Houron 0 12-24-2022 Glucose Tolerance 3 Hour Normal [facility] Comment on above: Order Comment: FASTI NG [...] HOUR NOT ESTABLISHED < 140 PERFORMED BY: [place] [address] PATHOLOGIST MANAGER WATER WASTEWATER SHELBI CHILEL M.D. Performed By: #### G TT3 #### [facility] [address] [place] [address] Lupus Anticoagulanton 2022 Dilute Gregory Viper Negative Normal [facility] Comment on above: Performed By: #### P ROSAC, LUPPRO, HOCYS, PROCAC, AT3A #### [facility] [address] [place] [address] [phone] Tearoom Host/Hostess: Nile Cesar MD #### AF5MUT, AMTHFR #### [facility] [address] [place] [address] Tearoom Host/Hostess: Thang Hull MD #### AAFPM #### [facility] [address] [place] [address] Tearoom Host/Hostess: Nile Cesar MD [address] [address] Tearoom Host/Hostess: Thang Hull MD Protein S Activityon 023 Protein S Activity 76 % Normal 59-130 [facility] Comment on above: Result Comment: Patients [...] P SARWATC, LUPPRO, HOCYS, PROCAC, AT3A #### [facility] [address] [place] [address] Tearoom Host/Hostess: Nile Cesar MD #### DALLAS, AMTHFR #### [facility] [address] [place] [address] Tearoom Host/Hostess: Thang Hull MD #### AAFERCHOM #### [facility] [address] [place] [address] Tearoom Host/Hostess: Nile Cesar MD [facility] [address] [place] [address] Tearoom Host/Hostess: Thang Hull MD Antithrombin III Jalen 11-02 Antithrombin III Act 94 % Normal 83-122 [facility] Comment on above: Result Comment: Patients receiving Hirudin may have a falsely decreased Antitrombin III Activity. Performed By: #### P ROSAC, LUPPRO, HOCYS, PROCAC, AT3A #### [facility] [address] [place] [address] Tearoom Host/Hostess: Nile Cesar MD #### AF5MUT, AMTHFR #### [facility] [address] [place] [address] Tearoom Host/Hostess: Thang Hull MD #### AAFPM #### [facility] [address] [place] [address] Tearoom Host/Hostess: Nile Cesar MD [facility] [address] [place] [address] Tearoom Host/Hostess: Thang Hull MD Protein C Activityon 023 Protein C Activity >150 Normal >80 [facility] Comment on above: Result Comment: Patients [...] HOCYS, PROCAC, AT3A #### [facility] [address] [place] [address] Tearoom Host/Hostess: Nile Cesar MD #### AF5MUT, AMTHFR #### [facility] [address] [place] [address] Tearoom Host/Hostess: Thang Hull MD #### AAFPM #### [address] [address] Tearoom Host/Hostess: Nile Cesar MD [address] [address] Tearoom Host/Hostess: Thang Hull MD Factor V Mutationon 11-02-19 23 F 5 SPECIMEN Whole Blood Normal [facility] Comment on above: Performed By: #### P ROSAC, LUPPRO, HOCYS, PROCAC, AT3A #### [facility] [address] [place] [address] Tearoom Host/Hostess: Nile Cesar MD #### AF5MUT, AMTHFR #### [facility] [address] [place] [address] Tearoom Host/Hostess: Thang Hull MD #### AAFPM #### [address] [address] Tearoom Host/Hostess: Nile Cesar MD [address] [address] Tearoom Host/Hostess: Thang Hull MD FACTOR 5 MUTATION Negative Normal [facility] Comment on above: Result Comment: (NOT E) Indication for testing: Assess genetic risk for thrombosis. NEGATIVE: The factor V Leiden variant, c.1601G>A; p.[id number], was not detected. This does not exclude [...] function in the F5 gene variant c.1601G>A (p.Paj908Hzy). Legacy nomenclature: [id number] (1691G>A) CLINICAL SENSITIVITY: 20-50 percent of individuals with an isolated VTE have the FVL variant. METHODOLOGY: Polymerase chain reaction and fluorescence monitoring. ANALYTICAL SENSITIVITY AND SPECIFICITY: 99 percent. LIMITATIONS: Diagnostic errors can occur due to rare sequence variations. F5 gene mutations, other than p.[id number], will not be detected. This test was developed and its performance characteristics determined by [facility]. It has not been cleared or approved by the [place] Food and Drug Administration. This test was performed in a CLIA certified laboratory and is intended for clinical purposes. Counseling and informed consent are recommended for genetic testing. Consent forms are available online. Performed by [facility], [address] [place] [address] [id number] [email or web address], Mike Stratton MD, PHD, Lab. Director Performed By: #### P ROSAC, LUPPRO, HOCYS, PROCAC, AT3A #### [address] [address] Tearoom Host/Hostess: Nile Cesar MD #### AF5MUT, AMTHFR #### [address] [phone] Tearoom Host/Hostess: Thang Hull MD #### AAFPM #### [address] [address] Tearoom Host/Hostess: Nile Cesar MD [address] [phone] Tearoom Host/Hostess: Thang Hull MD AFP, Maternalon 10-29-2022 Determined by Ultrasound [facility] Comment on above: Performed By: #### P ROSAC, LUPPRO, HOCYS, PROCAC, AT3A #### [address] [address] Tearoom Host/Hostess: Nile Cesar MD #### AF5MUT, AMTHFR #### [address] [phone] Tearoom Host/Hostess: Thang Hull MD #### AAFPM #### [address] [address] Tearoom Host/Hostess: Nile Cesar MD [address] [phone] Tearoom Host/Hostess: Thang Hull MD Due Date SEE NOTE Normal [facility] Comment on above: Result Comment: Resu lts for Estimated Due Date: 03 24 23 Performed By: #### P ROSAC, LUPPRO, HOCYS, PROCAC, AT3A #### [facility] [address] [place] [address] Tearoom Host/Hostess: Nile Cesar MD #### AF5MUT, AMTHFR #### [facility] [address] [place] [address] Tearoom Host/Hostess: Thang Hull MD #### AAFPM #### [address] [address] Tearoom Host/Hostess: Nile Cesar MD [facility] [address] [place] [address] Tearoom Host/Hostess: Thang Hull MD Family History No Normal [facility] Comment on above: Performed By: #### P ROSAC, LUPPRO, HOCYS, PROCAC, AT3A #### [facility] [address] [place] [address] Tearoom Host/Hostess: Nile Cesar MD #### AF5MUT, AMTHFR #### [facility] [address] [place] [address] Tearoom Host/Hostess: Thang Hull MD #### AAFPM #### [address] [address] Tearoom Host/Hostess: Nile Cesar MD [facility] [address] [place] [address] Tearoom Host/Hostess: Thang Hull MD Gestat Age (exact) 18 wks, 5 days Normal [facility] Comment on above: Performed By: #### P ROSAC, LUPPRO, HOCYS, PROCAC, AT3A #### [facility] [address] [place] [address] Tearoom Host/Hostess: Nile Cesar MD #### AF5MUT, AMTHFR #### [facility] [address] [place] [address] Tearoom Host/Hostess: Thang Hull MD #### AAFPM #### [address] [address] Tearoom Host/Hostess: Nile Cesar MD [address] [address] Tearoom Host/Hostess: Thang Hull MD Ins Req Matern Diab No [facility] Comment on above: Performed By: #### P ROSAC, LUPPRO, HOCYS, PROCAC, AT3A #### [address] [address] Tearoom Host/Hostess: Nile Cesar MD #### AF5MUT, AMTHFR #### [facility] [address] [place] [address] Tearoom Host/Hostess: Thang Hull MD #### AAFPM #### [address] [address] Tearoom Host/Hostess: Nile Cesar MD [address] [address] Tearoom Host/Hostess: Thang Hull MD Interpretation Screen Neg [facility] Comment on above: Result Comment: (NOT E) INTERPRETATION: SCREEN NEGATIVE for open spina bifida Neural Tube Defects (NTD) Negative Pre-Test Post-Test Cutoff Neural Tube Defects Risks 1:1030 1:509 1:250 Comments: The risk of an open neural tube defect is less than the screening cut-off. This test was developed and its performance characteristics determined by [facility]. It has not been cleared or approved by the [place] Food and Drug Administration. This test was performed in a CLIA certified laboratory and is intended for clinical purposes. Performed By: #### P ROSAC, LUPPRO, HOCYS, PROCAC, AT3A #### [facility] [address] [place] [address] Tearoom Host/Hostess: Nile Cesar MD #### AF5MUT, AMTHFR #### [facility] [address] [place] [address] Tearoom Host/Hostess: Thang Hull MD #### AAFPM #### [facility] [address] [place] [address] Tearoom Host/Hostess: Nile Cesar MD [facility] [address] [place] [address] Tearoom Host/Hostess: Thang Hull MD [age] [facility] Comment on above: Performed By: #### P ROSAC, LUPPRO, HOCYS, PROCAC, AT3A #### [facility] [address] [place] [address] Tearoom Host/Hostess: Nile Cesar MD #### AF5MUT, AMTHFR #### [facility] [address] [place] [address] Tearoom Host/Hostess: Thang Hull MD #### AAFPM #### [facility] [address] [place] [address] Tearoom Host/Hostess: Nile Cesar MD [facility] [address] [place] [address] Tearoom Host/Hostess: Thang Hull MD Maternal Race Nonblack [facility] Comment on above: Performed By: #### P ROSAC, LUPPRO, HOCYS, PROCAC, AT3A #### [facility] [address] [place] [address] Tearoom Host/Hostess: Nile Cesar MD #### AF5MUT, AMTHFR #### [facility] [address] [place] [address] Tearoom Host/Hostess: Thang Hull MD #### AAFPM #### [facility] [address] [place] [address] Tearoom Host/Hostess: Nile Cesar MD [facility] [address] [place] [address] Tearoom Host/Hostess: Thang Hull MD Maternal Weight 285.0 lbs. Normal [facility] Comment on above: Performed By: #### P ROSAC, LUPPRO, HOCYS, PROCAC, AT3A #### [facility] [address] [place] [address] Tearoom Host/Hostess: Nile Cesar MD #### AF5MUT, AMTHFR #### [facility] [address] [place] [address] Tearoom Host/Hostess: Thang Hull MD #### AAFPM #### [facility] [address] [place] [address] Tearoom Host/Hostess: Nile Cesar MD [facility] [address] [place] [address] Tearoom Host/Hostess: Thang Hull MD MoM for AFP 2.18 Normal [facility] Comment on above: Performed By: #### P ROSAC, LUPPRO, HOCYS, PROCAC, AT3A #### [facility] [address] [place] [address] Tearoom Host/Hostess: Nile Cesar MD #### AF5MUT, AMTHFR #### [facility] [address] [place] [address] Tearoom Host/Hostess: Thang Hull MD #### AAFPM #### [facility] [address] [place] [address] Tearoom Host/Hostess: Nile Cesar MD [facility] [address] [place] [address] Tearoom Host/Hostess: Thang Hull MD Number of Fetuses [place] Normal [facility] Comment on above: Performed By: #### P ROSAC, LUPPRO, HOCYS, PROCAC, AT3A #### [facility] [address] [place] [address] Tearoom Host/Hostess: Nile Cesar MD #### AF5MUT, AMTHFR #### [facility] [address] [place] [address] Tearoom Host/Hostess: Thang Hull MD #### AAFPM #### [facility] [address] [place] [address] Tearoom Host/Hostess: Nile Cesar MD [facility] [address] [place] [address] Tearoom Host/Hostess: Thang Hull MD Patient's AFP 70 ng/mL [facility] Comment on above: Performed By: #### P ROSAC, LUPPRO, HOCYS, PROCAC, AT3A #### [facility] [address] [place] [address] Tearoom Host/Hostess: Nile Cesar MD #### AF5MUT, AMTHFR #### [facility] [address] [place] [address] Tearoom Host/Hostess: Thang Hull MD #### AAFPM #### [facility] [address] [place] [address] Tearoom Host/Hostess: iNle Cesar MD [facility] [address] [place] [address] Tearoom Host/Hostess: Thang Hull MD Smoking Unknown [facility] Comment on above: Performed By: #### P ROSAC, LUPPRO, HOCYS, PROCAC, AT3A #### [facility] [address] [place] [address] Tearoom Host/Hostess: Nile Cesar MD #### AF5MUT, AMTHFR #### [facility] [address] [place] [address] Tearoom Host/Hostess: Thang Hull MD #### AAFPM #### [facility] [address] [place] [address] Tearoom Host/Hostess: Nile Cesar MD [facility] [address] [place] [address] Tearoom Host/Hostess: Thang Hull MD Specimen See Note Normal [facility] Comment on above: Result Comment: (NOT E) Initial sample Performed by [facility], [address] [place] [address] [id number] [email or web address], Mike Stratton MD, PHD, Lab. Director Performed By: #### P ROBERTO, LUPPRO, HOCYS, PROCAC, AT3A #### [address] [address] Tearoom Host/Hostess: Nile Cesar MD #### AF5MUT, AMTHFR #### [address] [phone] Tearoom Host/Hostess: Thang Hull MD #### AAFPM #### [address] [address] Tearoom Host/Hostess: Nile Cesar MD [address] [phone] Tearoom Host/Hostess: Thang Hull MD MTHFR Gene Mutationon 2022 MTHFR 1286 A>C Mut Heterozygous Normal [facility] Comment on above: Performed By: #### Curt MEJIA, LUPPRO, HOCYS, PROCAC, AT3A #### [address] [address] Tearoom Host/Hostess: Nile Cesar MD #### AF5MUT, AMTHFR #### [address] [address] Tearoom Host/Hostess: Thang Hull MD #### AAFPM #### [address] [address] Tearoom Host/Hostess: Nile Cesar MD [address] [phone] Tearoom Host/Hostess: Thang Hull MD MTHFR 655C>T Mut Heterozygous Normal [facility] Comment on above: Performed By: #### P ROSAC, LUPPRO, HOCYS, PROCAC, AT3A #### [facility] [address] [place] [address] Tearoom Host/Hostess: Nile Cesar MD #### AF5MUT, AMTHFR #### [facility] [address] [place] [address] Tearoom Host/Hostess: Thang Hull MD #### AAFPM #### [facility] [address] [place] [address] Tearoom Host/Hostess: Nile Cesar MD [facility] [address] [place], [place] [phone] Tearoom Host/Hostess: Thang Hull MD MTHFR Interpretation See Note Normal [facility] Comment on above: Result Comment: (NOT E) Indication for testing: Determine genetic contribution to hyperhomocysteinemia. 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 This genotype may be associated [...] has an effect on cardiovascular disease. The [employer] Practice Guidelines indicate [...] a contributing factor to hyperhomocysteinemia. Variants Tested: c.665C>T(p.Ari345Asu) and c.1286A>C(p.Gio836Ypr). (legacy names C677T and Y9031M, respectively). Clinical Sensitivity: Undefined; hyperhomocysteinemia is caused [...] developed and its performance characteristics determined by [facility]. It has not been cleared or approved by the US Food and Drug Administration. This test was performed in a CLIA certified laboratory and is intended for clinical purposes. Counseling and informed consent are recommended for genetic testing. Consent forms are available online. Performed by [facility], [address] [place] [address] [phone] [email or web address], Mike Stratton MD, PHD, Lab. Director Performed By: #### Curt FAMC, LUPPRO, HOCYS, PROCAC, AT3A #### [address] [address] Tearoom Host/Hostess: Nile Cesar MD #### AF5MUT, AMTHFR #### [facility] [address] [place] [address] [phone] Tearoom Host/Hostess: Thang Hull MD #### AAFPM #### [address] [address] Tearoom Host/Hostess: Nile Cesar MD [address] [phone] Tearoom Host/Hostess: Thang Hull MD MTHFR SPECIMEN Whole Blood Normal [facility] Comment on above: Performed By: #### P ROSAC, LUPPRO, HOCYS, PROCAC, AT3A #### [address] [address] Tearoom Host/Hostess: Nile Cesar MD #### AF5MUT, AMTHFR #### [facility] [address] [place] [address] Tearoom Host/Hostess: Thang Hull MD #### AAFPM #### [address] [address] Tearoom Host/Hostess: Nile Cesar MD [address] [address] Tearoom Host/Hostess: Thang Hull MD Lupus Anticoagulanton 2022 Anticardiolipin IgG 0.9 GPL Normal 0.0-10.0 [facility] Comment on above: Result Comment: Reference Range: <10.0 Negative 10.0-40.0 Equivocal >40.0 Positive Performed By: #### P ROSAC, LUPPRO, HOCYS, PROCAC, AT3A #### [address] [address] Tearoom Host/Hostess: Nile Cesar MD #### AF5MUT, AMTHFR #### [facility] [address] [place] [address] [phone] Tearoom Host/Hostess: Thang Hull MD #### AAFPM #### [address] [address] Tearoom Host/Hostess: Nile Cesar MD [address] [phone] Tearoom Host/Hostess: Thang Hull MD Anticardiolipin IgA 1.4 APL Normal 0.0-14.0 [facility] Comment on above: Result Comment: Reference Range: <14.0 Negative 14.0-20.0 Equivocal >20.0 Positive When results are Equivocal, it is recommended to retest after 4-6 weeks. Performed By: #### P ROSAC, LUPPRO, HOCYS, PROCAC, AT3A #### [facility] [address] [place] [address] Tearoom Host/Hostess: Nile Cesar MD #### AF5MUT, AMTHFR #### [facility] [address] [place] [address] Tearoom Host/Hostess: Thang Hull MD #### LEONCIOM #### [address] [address] Tearoom Host/Hostess: Nile Cesar MD [facility] [address] [place] [address] Tearoom Host/Hostess: Thang Hull MD Anticardiolipin IgM 3.6 MPL Normal 0.0-10.0 [facility] Comment on above: Result Comment: Reference Range: <10.0 Negative 10.0-40.0 Equivocal >40.0 Positive Performed By: #### P ROSAC, LUPPRO, HOCYS, PROCAC, AT3A #### [address] [address] Tearoom Host/Hostess: Nile Cesar MD #### AF5MUT, AMTHFR #### [facility] [address] [place] [address] Tearoom Host/Hostess: Thang Hull MD #### AMOL #### [address] [address] Tearoom Host/Hostess: Nile Cesar MD [address] [address] Tearoom Host/Hostess: Thang Hull MD [facility], [facility] 10-27-2022 Current Smoking INFORMATION NOT PROVIDED Normal [facility] Comment on above: Performed By: #### P ROSAC, LUPPRO, HOCYS, PROCAC, AT3A #### [facility] [address] [place] [address] Tearoom Host/Hostess: Nile Cesar MD #### AF5MUT, AMTHFR #### [facility] [address] [place] [address] Tearoom Host/Hostess: Thang Hull MD #### AMOL #### [address] [address] Tearoom Host/Hostess: Nile Cesar MD [facility] [address] [place] [address] Tearoom Host/Hostess: Thang Hull MD [facility] Comment on above: Performed By: #### P ROSAC, LUPPRO, HOCYS, PROCAC, AT3A #### [facility] [address] [place] [address] Tearoom Host/Hostess: Nile Cesar MD #### AF5MUT, AMTHFR #### [facility] [address] [place] [address] Tearoom Host/Hostess: Thang Hull MD #### AAFPM #### [address] [address] Tearoom Host/Hostess: Nile Cesar MD [facility] [address] [place] [address] Tearoom Host/Hostess: Thang Hull MD [facility] Comment on above: Performed By: #### P ROSAC, LUPPRO, HOCYS, PROCAC, AT3A #### [facility] [address] [place] [address] Tearoom Host/Hostess: Nile Cesar MD #### AF5MUT, AMTHFR #### [facility] [address] [place] [address] Tearoom Host/Hostess: Thang Hull MD #### AAFPM #### [address] [address] Tearoom Host/Hostess: Nile Cesar MD [facility] [address] [place] [address] Tearoom Host/Hostess: Thang Hull MD Donor Egg INFORMATION NOT PROVIDED [facility] Comment on above: Performed By: #### P ROSAC, LUPPRO, HOCYS, PROCAC, AT3A #### [facility] [address] [place] [address] Tearoom Host/Hostess: Nile Cesar MD #### AF5MUT, AMTHFR #### [facility] [address] [place] [address] Tearoom Host/Hostess: Thang Hull MD #### AAFPM #### [facility] [address] [place] [address] Tearoom Host/Hostess: Nile Cesar MD [facility] [address] [place] [address] Tearoom Host/Hostess: Thang Hull MD Estimated Due Date 03/24/2023 [facility] Comment on above: Performed By: #### P ROSAC, LUPPRO, HOCYS, PROCAC, AT3A #### [facility] [address] [place] [address] Tearoom Host/Hostess: Nile Cesar MD #### AF5MUT, AMTHFR #### [facility] [address] [place] [address] Tearoom Host/Hostess: Thang Hull MD #### AAFPM #### [facility] [address] [place] [address] Tearoom Host/Hostess: Nile Cesar MD [facility] [address] [place] [address] Tearoom Host/Hostess: Thang Hull MD Family History NO [facility] Comment on above: Performed By: #### P ROSAC, LUPPRO, HOCYS, PROCAC, AT3A #### [facility] [address] [place] [address] Tearoom Host/Hostess: Nile Cesar MD #### AF5MUT, AMTHFR #### [facility] [address] [place] [address] Tearoom Host/Hostess: Thang Hull MD #### AAFPM #### [facility] [address] [place] [address] Tearoom Host/Hostess: Nile Cesar MD [facility] [address] [place] [address] Tearoom Host/Hostess: Thang Hull MD In Vitro Fertalizat INFORMATION NOT PROVIDED [facility] Comment on above: Performed By: #### P ROSAC, LUPPRO, HOCYS, PROCAC, AT3A #### [facility] [address] [place] [address] Tearoom Host/Hostess: Nile Cesar MD #### AF5MUT, AMTHFR #### [facility] [address] [place] [address] Tearoom Host/Hostess: Thang Hull MD #### AAFPM #### [address] [address] Tearoom Host/Hostess: Nile Cesar MD [facility] [address] [place] [address] Tearoom Host/Hostess: Thang Hull MD Maternal date 1990 [facility] Comment on above: Performed By: #### P ROSAC, LUPPRO, HOCYS, PROCAC, AT3A #### [facility] [address] [place] [address] Tearoom Host/Hostess: Nile Cesar MD #### AF5MUT, AMTHFR #### [facility] [address] [place] [address] Tearoom Host/Hostess: Thang Hull MD #### AAFPM #### [facility] [address] [place] [address] Tearoom Host/Hostess: Nile Cesar MD [facility] [address] [place] [address] Tearoom Host/Hostess: Thang Hull MD Maternal Weight 285 Normal [facility] Comment on above: Performed By: #### P ROSAC, LUPPRO, HOCYS, PROCAC, AT3A #### [facility] [address] [place] [address] Tearoom Host/Hostess: Nile Cesar MD #### AF5MUT, AMTHFR #### [facility] [address] [place] [address] Tearoom Host/Hostess: Thang Hull MD #### AAFPM #### [facility] [address] [place] [address] Tearoom Host/Hostess: Nile Cesar MD [facility] [address] [place] [address] Tearoom Host/Hostess: Thang Hull MD Monochorionic Twins INFORMATION NOT PROVIDED Normal [facility] Comment on above: Performed By: #### P ROSAC, LUPPRO, HOCYS, PROCAC, AT3A #### [facility] [address] [place] [address] Tearoom Host/Hostess: Nile Cesar MD #### AF5MUT, AMTHFR #### [facility] [address] [place] [address] Tearoom Host/Hostess: Thang Hull MD #### AAFPM #### [facility] [address] [place] [address] Tearoom Host/Hostess: Nile Cesar MD [facility] [address] [place] [address] Tearoom Host/Hostess: Thang Hull MD Patient Weight Units LBS Normal [facility] Comment on above: Performed By: #### P ROSAC, LUPPRO, HOCYS, PROCAC, AT3A #### [facility] [address] [place] [address] Tearoom Host/Hostess: Nile Cesar MD #### AF5MUT, AMTHFR #### [facility] [address] [place] [address] Tearoom Host/Hostess: Thang Hull MD #### AAFPM #### [facility] [address] [place] [address] Tearoom Host/Hostess: Nile Cesar MD [facility] [address] [place] [address] Tearoom Host/Hostess: Thang Hull MD Race (Maternal) WHITE [facility] Comment on above: Performed By: #### P ROSAC, LUPPRO, HOCYS, PROCAC, AT3A #### [facility] [address] [place] [address] Tearoom Host/Hostess: Nile Cesar MD #### AF5MUT, AMTHFR #### [facility] [address] [place] [address] Tearoom Host/Hostess: Thang Hull MD #### AAFPM #### [address] [address] Tearoom Host/Hostess: Nile Cesar MD [facility] [address] [place] [address] Tearoom Host/Hostess: Thang Hull MD Repeat Specimen NO [facility] Comment on above: Performed By: #### P ROSAC, LUPPRO, HOCYS, PROCAC, AT3A #### [facility] [address] [place] [address] Tearoom Host/Hostess: Nile Cesar MD #### AF5MUT, AMTHFR #### [facility] [address] [place] [address] Tearoom Host/Hostess: Thang Hull MD #### AAFPM #### [facility] [address] [place] [address] Tearoom Host/Hostess: Nile Cesar MD [facility] [address] [place] [address] Tearoom Host/Hostess: Thang Hull MD Valproic/Carbamaze p INFORMATION NOT PROVIDED [facility] Comment on above: Performed By: #### P ROSAC, LUPPRO, HOCYS, PROCAC, AT3A #### [facility] [address] [place] [address] [phone] Tearoom Host/Hostess: Nile Cesar MD #### AF5MUT, AMTHFR #### [facility] [address] [place], [place] [phone] Tearoom Host/Hostess: Thang Hull MD #### AAFPM #### [address] [address] Tearoom Host/Hostess: Nile Cesar MD [facility] [address] [place], [place] [phone] Tearoom Host/Hostess: Thang Hull MD Homocysteineon 10-26-2022 Homocysteine 6.7 umol/L Normal <15.0 [facility] Comment on above: Performed By: #### P ROSAC, LUPPRO, HOCYS, PROCAC, AT3A #### [address] [address] Tearoom Host/Hostess: Nile Cesar MD #### [id number], AMTHFR #### [facility] [address] [place] [address] [phone] Tearoom Host/Hostess: Thang Hull MD #### AAFPM #### [address] [address] Tearoom Host/Hostess: Nile Cesar MD [address] [phone] Tearoom Host/Hostess: Thang Hull MD Homocysteine 6.7 umol/L NINF - 15.0 umol/L [facility] Lupus Anticoagulanton 2 aPTT Coag (Bld) [Time] 25.8 s Normal 23.0-36.5 [facility] Comment on above: Performed By: #### P ROSAC, LUPPRO, HOCYS, PROCAC, AT3A #### [facility] [address] [place] [address] Tearoom Host/Hostess: Nile Cesar MD #### AF5MUT, AMTHFR #### [facility] [address] [place] [address] Tearoom Host/Hostess: Thang Hull MD #### AAFERCHOM #### [address] [address] Tearoom Host/Hostess: Nile Cesar MD [address] [address] Tearoom Host/Hostess: Thang Hull MD INR Coag (PPP) [Relative time] 0.9 {INR} Normal [facility] Comment on above: Result Comment: Therapeutic Range: Moderate Anticoagulant Intensity: INR = 2.0-3.0 High Anticoagulant Intensity: INR = 2.5-3.5 Performed By: #### P ROSAC, LUPPRO, HOCYS, PROCAC, AT3A #### [address] [address] Tearoom Host/Hostess: Nile Cesar MD #### AFPHILIP, AMTHFR #### [address] [address] Tearoom Host/Hostess: Thang Hull MD #### LEONCIOM #### [address] [address] Tearoom Host/Hostess: Nile Cesar MD [address] [address] Tearoom Host/Hostess: Thang Hull MD PT Coag (PPP) [Time] 11.7 s Normal 11.7-14.9 [facility] Comment on above: Performed By: #### P ROSAC, LUPPRO, HOCYS, PROCAC, AT3A #### [address] [address] Tearoom Host/Hostess: Nile Cesar MD #### AF5MUT, AMTHFR #### [address] [address] Tearoom Host/Hostess: Thang Hull MD #### ERIKFPM #### [address], [place] 1867[address] Tearoom Host/Hostess: Nile Cesar MD [address] [address] Tearoom Host/Hostess: MD Romel Briones 10-26-2022 Romel Kit Forwarded to [facility] Comment on above: Performed By: #### N ATER #### [facility] [address] [place] [address] [phone] Tearoom Host/Hostess: Nile Cesar MD Romel [facility] Forwarded [facility] Comment on above: Performed By: #### N ATER #### [facility] [address] [place] [address] [phone] Tearoom Host/Hostess: Nile Cesar MD AFP MATERNAL FOR SPINA BIFID Aon 10-08-2022 AFP MoM 1.69 Normal [facility] Comment on above: Performed By: #### C BC #### [facility] [address] [place] [address] [address] Brenna Mann AFP Value 39.4 ng/mL Normal [facility] Comment on above: Performed By: #### C BC #### [facility] [address] [address] [address] Brenna Mann AFP, Serum for Spina Bifida Report Normal [facility] Comment on above: Performed By: #### C BC #### [facility] [address] [address] [address] Brenna Mann Comment Comment Normal [facility] Comment on above: Result Comment: Jesús Goodman, Ph.D., [facility] Director . References: Available Upon Request. . Multiples Of Median Cutoffs For AFP Elevations [place] 2.5 Black 2.8 IDD 2.0 Twins 4.5 Abbreviation Definitions IDD - Insulin Dep Diabetes OSBR - Open Spina Bifida Risk . For further inquiries contact [facility] at [phone]. . This test was developed and its performance characteristics determined by [facility]. It has not been cleared or approved by the Food and Drug Administration. Performed By: #### C BC #### [facility] [address] [address] [address] Brenna Ji Age Collection Date 13.[address] [facility] Comment on above: Performed By: #### C BC #### [facility] [address] [address] [address] Brenna Mann Gestat, Age Based on As provided [facility] Comment on above: Result Comment: Reca lculations are not recommended when gestational dating by LMP and ultrasound are within 10 days. Performed By: #### C BC #### [facility] [address] [place] [address] Dr. Brenna Mann Insulin Dep Diabetes No Normal [facility] Comment on above: Performed By: #### C BC #### [facility] [address] [place] [address] Dr. Brenna Mann Interpretation Comment Normal [facility] Comment on above: Result Comment: [...] Customer Services to discuss available options. The [employer] recommends amniocentesis be offered to women age 35 and older. Performed By: #### C BC #### [facility] [address] [place] [address] Dr. Brenna Mann [age] Normal [facility] Comment on above: Performed By: #### C BC #### [facility] [address] [place] [address] Dr. Brenna Mann Multiple Gestation No Normal [facility] Comment on above: Performed By: #### C BC #### [facility] [address] [place] [address] Dr. Brenna Mann OSBR Risk 1 [place] [address] [facility] Comment on above: Performed By: #### C BC #### [facility] [address] [place], [place] [address] Dr. Brenna Mann PDF . Normal [facility] Comment on above: Performed By: #### C BC #### [facility] [address] [place], [place] [address] Dr. Brenna Mann Race Normal [facility] Comment on above: Performed By: #### C BC #### [facility] [address] [address] [address] Brenna Mann Test Results: Negative Normal [facility] Comment on above: Performed By: #### C BC #### [facility] [address] [place], [place] [address] Dr. Brenna Mann US PREG LIMITEDon 10-06-2022 [...] by: LINO ARROYO Date: 2022-10-06 15:09 Normal [facility] US PREG TVon 09-14-2022 US PREG [...] by: JR RITCHIE Date: 2022-09-14 17:18 Normal [facility] HEP B SURFACE ANTIGEN SCREEN on 09-11-2022 HBsAg Screen Negative Normal Negative [facility] Comment on above: Performed By: #### H BSANS #### [facility] [address] [address] [address] Brenna Mann HEPATITIS C VIRUS AB W/ REFL EX QUANTon 09-11-2022 HCV AB Non-Reactive Normal Non Reactive [facility] Comment on above: Performed By: #### 4 [id number] #### [facility] [address] [place] [address] Dr. Brenna Mann Interpretation: Comment Normal [facility] Comment on above: Result Comment: Not infected with HCV unless early or acute infection is suspected (which may be delayed in an immunocompromised individual), or other evidence exists to indicate HCV infection. Performed By: #### 4 [id number] #### [facility] [address] [place] [address] Dr. Brenna Mann HIV 1 AND 2 WITH REFLEXon HIV Screen 4th Generation wRfx Non-Reactive Normal Non Reactive [facility] Comment on above: Result Comment: HIV Negative HIV-1/HIV-2 antibodies and HIV-1 p24 antigen were NOT detected. There is no laboratory evidence of HIV infection. Performed By: #### H IV12 #### [facility] [address] [place] [address] Dr. Brenna Mann RPR QUANTon 09-11-2022 Rapid Plasma Reagin, Quant Non-Reactive Normal NonRea<1:1 [facility] Comment on above: Result Comment: Plea se Note: This test does not meet current guidelines for screening and diagnosis of syphilis. This test is intended for following treatment response in patients being treated for syphilis infection. To screen for syphilis infection, a reflex cascade that includes both RPR and a treponema-specific assay should be utilized, such as Treponema pallidum (Syphilis) Screening Vanduser (210569) or Rapid Plasma Reagin (RPR) Test With Reflex to Quantitative RPR and Confirmatory Treponema pallidum Antibodies (434809). Performed By: #### 4 [id number] #### [facility] [address] [place] [address] Dr. Brenna Mann RUBELLA AB IGGon 09-11-2022 Rubella Antibodies, IgG 2.41 index Normal Immune >0.99 [facility] Comment on above: Result Comment: Non- immune <0.90 Equivocal 0.90 - 0.99 Immune >0.99 Performed By: #### C BC #### [facility] [address] [address] [address] Brenna Mann CBC AUTO DIFFon 09-10-2022 BASO # 0.0 103/ul Normal 0.0-0.1 [facility] Comment on above: Performed By: #### C BC #### [facility] [address] [place] [address] Dr. Brenna Mann Basophils/100 WBC (Bld) 0.3 % Normal 0.2-2.0 [facility] Comment on above: Performed By: #### C BC #### [facility] [address] [place] [address] Dr. Brenna Mann EO # 0.3 103/ul Normal 0.0-0.7 [facility] Comment on above: Performed By: #### C BC #### [facility] [address] [place] [address] Dr. Brenna Mann Eosinophils/100 WBC (Bld) 2.7 % Normal 0.9-7.0 [facility] Comment on above: Performed By: #### C BC #### [facility] [address] [place] [address] Dr. Brenna Mann Erythrocyte distribution width (RBC) [Ratio] 13.8 % Normal 11.0-15.0 [facility] Comment on above: Performed By: #### C BC #### [facility] [address] [place] [address] Dr. Brenna Mann Hematocrit (Bld) [Volume fraction] 37.4 % Normal 36.0-48.0 [facility] Comment on above: Performed By: #### C BC #### [facility] [address] [place] [address] Dr. Brenna Mann Hemoglobin (Bld) [Mass/Vol] 12.2 g/dL Normal 12.0-16.0 [facility] Comment on above: Performed By: #### C BC #### [facility] [address] [place] [address] Dr. Brenna Mann IG # 0.10 10e3/ul Critically high 0.00-0.03 [facility] Comment on above: Performed By: #### C BC #### [facility] 01 [place] [address] Dr. Brenna Mann IG % 1.1 % Critically high 0.0-0.5 [facility] Comment on above: Performed By: #### C BC #### [facility] [address] [place] [address] Dr. Brenna Mann LYMPH # 2.4 103/ul Normal 1.2-3.8 [facility] Comment on above: Performed By: #### C BC #### [facility] [address] [place] [address] Dr. Brenna Mann Lymphocytes/100 WBC (Bld) 25.3 % Normal 20.5-60.0 [facility] Comment on above: Performed By: #### C BC #### [facility] [address] [place] [address] Dr. Brenna Mann MANUAL DIFF REQ NO Normal [facility] Comment on above: Performed By: #### C BC #### [facility] [address] [place] [address] Dr. Brenna Mann MCH (RBC) [Entitic mass] 27.8 pg Normal 26.7-34.0 [facility] Comment on above: Performed By: #### C BC #### [facility] [address] [place] [address] Dr. Brenna Mann MCHC (RBC) [Mass/Vol] 32.6 g/dL Normal 29.9-35.2 [facility] Comment on above: Performed By: #### C BC #### [facility] [address] [place] [address] Dr. Brenna Mann MCV (RBC) [Entitic vol] 85.2 fL Normal 81.0-99.0 [facility] Comment on above: Performed By: #### C BC #### [facility] [address] [place] [address] Dr. Brenna Mann MONO # 0.4 103/ul Normal 0.3-0.8 [facility] Comment on above: Performed By: #### C BC #### [facility] [address] [place] [address] Dr. Brenna Mann Monocytes/100 WBC (Bld) 3.7 % Normal 1.7-12.0 [facility] Comment on above: Performed By: #### C BC #### [facility] [address] [place] [address] Dr. Brenna Mann NEUT # 6.3 103/ul Normal 1.4-6.5 [facility] Comment on above: Performed By: #### C BC #### [facility] [address] [place] [address] Dr. Brenna Mann Neutrophils/100 WBC (Bld) 66.9 % Normal 43.0-75.0 [facility] Comment on above: Performed By: #### C BC #### [facility] [address] [place] [address] Dr. Brenna Mann Platelet mean volume (Bld) [Entitic vol] 12.1 fL Normal 9.5-13.5 [facility] Comment on above: Performed By: #### C BC #### [facility] [address] [place] [address] Dr. Brenna Mann PLT 172 103/ul Normal 150-450 [facility] Comment on above: Performed By: #### C BC #### [facility] [address] [place] [address] Dr. Brenna Mann RBC 4.39 106/ul Normal 4.20-5.40 [facility] Comment on above: Performed By: #### C BC #### [facility] [address] [place] [address] Dr. Brenna Mann WBC 9.3 103/ul Normal 4.0-11.0 [facility] Comment on above: Performed By: #### C BC #### [facility] [address] [place] [address] Dr. Brenna Mann CULTURE URINEon 09-10-2022 CULTURE URINE Culture Observations : NO GROWTH. Normal [facility] Comment on above: Performed By: #### C BC #### [facility] [address] [place] [address] Dr. Brenna Mann GLYCOHEMOGLOBIN A1Con 2022 ADA RECOMMENDATION SEE BELOW Normal [facility] Comment on above: Result Comment: ADA RECOMMENDED LIMIT 4.0 - 6.0 ADA THERAPEUTIC TARGET < 7.0 ACTION SUGGESTED > 7.0 Performed By: #### 4 [id number] #### [facility] [address] [place] [address] Dr. Brenna Mann Glucose [Mass/Vol] 100 mg/dL Normal [facility] Comment on above: Performed By: #### 4 [id number] #### [facility] [address] [place] [address] Dr. Brenna Mann HbA1c (Bld) [Mass fraction] 5.1 % Normal 4.5-6.2 [facility] Comment on above: Performed By: #### 4 [id number] #### [facility] [address] [place] [address] Dr. Brenna Mann ROMEL BOX TEST PT SEND OUTo n 09-10-2022 SENT TO REF LAB 09/10/2022 Normal [facility] Comment on above: Performed By: #### 4 [id number] #### [facility] [address] [place] [address] Dr. Brenna Mann TSHon 09-10-2022 TSH 0.568 uIU/mL Normal 0.358-3.740 [facility] Comment on above: Performed By: #### T SH #### [facility] [address] [place] [address] Dr. Brenna Mann TYPE AND SCREENon 09-10-2022 TYPE AND SCREEN Negative Normal [facility] Comment on above: Performed By: #### C BC #### [facility] [address] [place] [address] Dr. Brenna Mann US PREG TVon 08-29-2022 [...] JR RITCHIE Date: 2022-08-29 16:12 Normal [facility] CBC AUTO DIFFon 08-21-2022 BASO # 0.0 103/ul Normal 0.0-0.1 [facility] Comment on above: Performed By: #### 4 [id number] #### [facility] [address] [place] [address] Dr. Brenna Mann Basophils/100 WBC (Bld) 0.3 % Normal 0.2-2.0 [facility] Comment on above: Performed By: #### 4 [id number] #### [facility] [address] [place] [address] Dr. Brenna Mann EO # 0.1 103/ul Normal 0.0-0.7 [facility] Comment on above: Performed By: #### 4 [id number] #### [facility] [address] [place] [address] Dr. Brenna Mann Eosinophils/100 WBC (Bld) 1.2 % Normal 0.9-7.0 [facility] Comment on above: Performed By: #### 4 [id number] #### [facility] [address] [place] [address] Dr. Brenna Mann Erythrocyte distribution width (RBC) [Ratio] 14.3 % Normal 11.0-15.0 [facility] Comment on above: Performed By: #### 4 [id number] #### [facility] [address] [place] [address] Dr. Brenna Mann Hematocrit (Bld) [Volume fraction] 40.4 % Normal 36.0-48.0 [facility] Comment on above: Performed By: #### 4 [id number] #### [facility] [address] [place] [address] Dr. Brenna Mann Hemoglobin (Bld) [Mass/Vol] 12.9 g/dL Normal 12.0-16.0 [facility] Comment on above: Performed By: #### 4 [id number] #### [facility] [address] [place] [address] Dr. Brenna Mann IG # 0.08 10e3/ul Critically high 0.00-0.03 [facility] Comment on above: Performed By: #### 4 [id number] #### [facility] [address] [place] [address] Dr. Brenna Mann IG % 0.8 % Critically high 0.0-0.5 [facility] Comment on above: Performed By: #### 4 [id number] #### [facility] [address] [place] [address] Dr. Brenna Mann LYMPH # 2.8 103/ul Normal 1.2-3.8 [facility] Comment on above: Performed By: #### 4 [id number] #### [facility] [address] [place] [address] Dr. Brenna Mann Lymphocytes/100 WBC (Bld) 28.8 % Normal 20.5-60.0 [facility] Comment on above: Performed By: #### 4 [id number] #### [facility] [address] [place] [address] Dr. Brenna Mann MANUAL DIFF REQ NO Normal [facility] Comment on above: Performed By: #### 4 [id number] #### [facility] [address] [place] [address] Dr. Brenna Mann MCH (RBC) [Entitic mass] 28.4 pg Normal 26.7-34.0 [facility] Comment on above: Performed By: #### 4 [id number] #### [facility] [address] [place] [address] Dr. Brenna Mann MCHC (RBC) [Mass/Vol] 31.9 g/dL Normal 29.9-35.2 [facility] Comment on above: Performed By: #### 4 [id number] #### [facility] [address] [place] [address] Dr. Brenna Mann MCV (RBC) [Entitic vol] 88.8 fL Normal 81.0-99.0 [facility] Comment on above: Performed By: #### 4 [id number] #### [facility] [address] [place] [address] Dr. Brenna Mann MONO # 0.7 103/ul Normal 0.3-0.8 [facility] Comment on above: Performed By: #### 4 [id number] #### [facility] [address] [place] [address] Dr. Brenna Mann Monocytes/100 WBC (Bld) 6.9 % Normal 1.7-12.0 [facility] Comment on above: Performed By: #### 4 [id number] #### [facility] [address] [place] [address] Dr. Brenna Mann NEUT # 6.1 103/ul Normal 1.4-6.5 [facility] Comment on above: Performed By: #### 4 [id number] #### [facility] [address] [place] [address] Dr. Brenna Mann Neutrophils/100 WBC (Bld) 62.0 % Normal 43.0-75.0 [facility] Comment on above: Performed By: #### 4 [id number] #### [facility] [address] [place] [address] Dr. Brenna Mann Platelet mean volume (Bld) [Entitic vol] 12.0 fL Normal 9.5-13.5 [facility] Comment on above: Performed By: #### 4 [id number] #### [facility] [address] [place] [address] Dr. Brenna Mann PLT 191 103/ul Normal 150-450 [facility] Comment on above: Performed By: #### 4 [id number] #### [facility] [address] [place] [address] Dr. Brenna Mann RBC 4.55 106/ul Normal 4.20-5.40 [facility] Comment on above: Performed By: #### 4 [id number] #### [facility] [address] [place] [address] Dr. Brenna Mann WBC 9.8 103/ul Normal 4.0-11.0 [facility] Comment on above: Performed By: #### 4 [id number] #### [facility] [address] [place] [address] Dr. Brenna Mann PREG QUANT HCGon 08-21-2022 HCG QUANT 89693 mIU/mL Normal [facility] Comment on above: Performed By: #### P REGQNT #### [facility] [address] [place] [address] Dr. Brenna Mann HCG RANGE SEE BELOW Normal [facility] Comment on above: Result Comment: 5-50 0.2-1 WEEK 50-500 1-2 WEEKS 100-5,000 2-3 WEEKS 500-10,000 3-4 WEEKS 1,000-50,000 4-5 WEEKS 10,000-100,000 5-6 WEEKS 15,000-200,000 6-8 WEEKS 10,000-100,000 2-3 MONTHS Performed By: #### P REGQNT #### [facility] [address] [place] [address] Dr. Brenna Mann PROF 14(COMP METB)on 023 Albumin [Mass/Vol] 2.8 g/dL Critically low 3.4-5.0 [facility] Comment on above: Performed By: #### 4 [id number] #### [facility] [address] [place] [address] Dr. Brenna Mann Albumin/Globulin [Mass ratio] 0.6 {ratio} Normal [facility] Comment on above: Performed By: #### 4 [id number] #### [facility] [address] [place] [address] Dr. Brenna Mann ALP [Catalytic activity/Vol] 53 U/L Normal 46-116 [facility] Comment on above: Performed By: #### 4 [id number] #### [facility] [address] [place], [place] [id number] Dr. Brenna Mann ALT [Catalytic activity/Vol] 17 U/L Normal 14-59 [facility] Comment on above: Performed By: #### 4 [id number] #### [facility] [address] [place] [address] Dr. Brenna Mann Anion gap [Moles/Vol] 14.2 mmol/L Normal [facility] Comment on above: Performed By: #### 4 [id number] #### [facility] [address] [address] [address] Brenna Mann AST [Catalytic activity/Vol] 21 U/L Normal 15-37 [facility] Comment on above: Performed By: #### 4 [id number] #### [facility] [address] [place] [address] Dr. Brenna Mann Bilirubin [Mass/Vol] 0.1 mg/dL Critically low 0.2-1.0 [facility] Comment on above: Performed By: #### 4 [id number] #### [facility] [address] [place] [address] Dr. Brenna Mann Calcium [Mass/Vol] 8.5 mg/dL Normal 8.5-10.1 [facility] Comment on above: Performed By: #### 4 [id number] #### [facility] [address] [place] [address] Dr. Brenna Mann Chloride [Moles/Vol] 99 mmol/L Normal 98-107 [facility] Comment on above: Performed By: #### 4 [id number] #### [facility] [address] [place] [address] Dr. Brenna Mann CO2 [Moles/Vol] 26.2 mmol/L Normal 21.0-32.0 [facility] Comment on above: Performed By: #### 4 [id number] #### [facility] [address] [place] [address] Dr. Brenna Mann Creatinine [Mass/Vol] 0.38 mg/dL Critically low 0.55-1.02 [facility] Comment on above: Performed By: #### 4 [id number] #### [facility] [address] [place] [address] Dr. Brenna Mann EGFR-AF CAMEROONIAN >60 Normal >=60 [facility] Comment on above: Performed By: #### 4 [id number] #### [facility] [address] [address] [address] Brenna Mann EGFR-NON AF CAMEROONIAN >60 Normal >=60 [facility] Comment on above: Performed By: #### 4 [id number] #### [facility] [address] [address] [address] Brenna Mann Globulin (S) [Mass/Vol] 4.5 g/dL Normal [facility] Comment on above: Performed By: #### 4 [id number] #### [facility] [address] [place] [address] Dr. Brenna Mann Glucose [Mass/Vol] 106 mg/dL Normal 74-106 [facility] Comment on above: Performed By: #### 4 [id number] #### [facility] [address] [address] [address] Brenna Mann Potassium [Moles/Vol] 3.4 mmol/L Critically low 3.5-5.1 [facility] Comment on above: Performed By: #### 4 [id number] #### [facility] [address] [place] [address] Dr. Brenna Mann Protein [Mass/Vol] 7.3 g/dL Normal 6.4-8.2 [facility] Comment on above: Performed By: #### 4 [id number] #### [facility] [address] [address] [address] Brenna Mann Sodium [Moles/Vol] 136 mmol/L Normal 136-145 [facility] Comment on above: Performed By: #### 4 [id number] #### [facility] [address] [address] [address] Brenna Mann Urea nitrogen [Mass/Vol] 7.0 mg/dL Normal 7.0-18.0 [facility] Comment on above: Performed By: #### 4 [id number] #### [facility] [address] [place] [address] Dr. Brenna Mann Urea nitrogen/Creatinin e [Mass ratio] 18.4 mg/mg Normal [facility] Comment on above: Performed By: #### 4 [id number] #### [facility] [address] [place] [address] Dr. Brenna Mann US PREG TVon 08-11-2022 [...] by: LINO ARROYO Date: 2022-08-11 13:32 Normal [facility] PREG QUANT HCGon 07-18-2022 HCG QUANT 230 mIU/mL Normal [facility] Comment on above: Performed By: #### P REGQNT #### [facility] [address] [place] [address] Dr. Brenna Mann HCG RANGE SEE BELOW Normal [facility] Comment on above: Result Comment: 5-50 0.2-1 WEEK 50-500 1-2 WEEKS 100-5,000 2-3 WEEKS 500-10,000 3-4 WEEKS 1,000-50,000 4-5 WEEKS 10,000-100,000 5-6 WEEKS 15,000-200,000 6-8 WEEKS 10,000-100,000 2-3 MONTHS Performed By: #### P REGQNT #### [facility] [address] [place] [address] Dr. Brenna Mann PREG QUANT HCGon 07-15-2022 HCG QUANT 52 mIU/mL Normal [facility] Comment on above: Performed By: #### P REGQNT #### [facility] [address] [place] [address] Dr. Brenna Mann HCG RANGE SEE BELOW [facility] Comment on above: Result Comment: 5-50 0.2-1 WEEK 50-500 1-2 WEEKS 100-5,000 2-3 WEEKS 500-10,000 3-4 WEEKS 1,000-50,000 4-5 WEEKS 10,000-100,000 5-6 WEEKS 15,000-200,000 6-8 WEEKS 10,000-100,000 2-3 MONTHS Performed By: #### P REGQNT #### [facility] [address] [place] [address] Dr. Brenna Mann PAP ACOG PANEL 2: 30 to 65on 07-14-2022 . . Normal [facility] Comment on above: Result Comment: Perf ormed at: WB Performed By: #### 4 [id number] #### [facility] [address] [place] [address] Dr. Brenna Mann Age Gdln ACOG Testing 30-63 [facility] Comment on above: Performed By: #### 4 [id number] #### [facility] [address] [place] [address] Dr. Brenna Mann DIAGNOSIS: Comment Normal [facility] Comment on above: Result Comment: NEGA TIVE FOR INTRAEPITHELIAL LESION OR MALIGNANCY. Performed at: WB Performed By: #### 4 [id number] #### [facility] [address] [place] [address] Dr. Brenna Mann HPV Aptima Negative Normal Negative [facility] Comment on above: Result Comment: This nucleic acid amplification test detects fourteen high-risk HPV types (16,18,31,33,35,39,45,51,52,56,58,59,66,68) without differentiation. Performed at: =G Performed By: #### 4 [id number] #### [facility] [address] [place] [address] Dr. Brenna Mann HPV Genotype Reflex Comment Normal [facility] Comment on above: Result Comment: Crit eria not met, HPV Genotype not performed. Performed at: WB Performed By: #### 4 [id number] #### [facility] [address] [place] [address] Dr. Brenna Mann Methodology: Comment Normal [facility] Comment on above: Result Comment: This liquid based ThinPrep(R) pap test was screened with the use of an image guided system. Performed at: WB Performed By: #### 4 [id number] #### [facility] [address] [place] [address] Dr. Brenna Mann Note: Comment Normal [facility] Comment on above: Result Comment: The Pap smear is a screening test designed to aid in the detection of premalignant and malignant conditions of the uterine cervix. It is not a diagnostic procedure and should not be used as the sole means of detecting cervical cancer. Both false-positive and false-negative reports do occur. . Performed at: WB Performed By: #### 4 [id number] #### [facility] [address] [place] [address] Dr. Brenna Mann Performed by: Comment Normal [facility] Comment on above: Result Comment: Iliana Castillo, Court Security Officer (ASCP) Performed at: WB Performed By: #### 4 [id number] #### [facility] [address] [place] [address] Dr. Brenna Mann Specimen adequacy: Comment Normal [facility] Comment on above: Result Comment: Sati sfactory for evaluation. No endocervical component is identified. Performed at: WB Performed By: #### 4 [id number] #### [facility] [address] [place] [address] Dr. Brenna Mann QUANTIFERON TB GOLD PLUSon 0 03-01-2022 QuantiFERON Criteria Comment Normal [facility] Comment on above: Result Comment: Keshav [...] for the test. Performed By: #### 4 [id number] #### [facility] [address] [place] [address] Dr. Brenna Mann QuantiFERON Mitogen Value >10.00 [facility] Comment on above: Performed By: #### 4 [id number] #### [facility] [address] [place] [address] Dr. Brenna Mann QuantiFERON Nil Value 0.02 IU/mL Normal [facility] Comment on above: Performed By: #### 4 [id number] #### [facility] [address] [place] [address] Dr. Brenna Mann QuantiFERON TB1 Ag Value 0.17 IU/mL Normal [facility] Comment on above: Performed By: #### 4 [id number] #### [facility] [address] [place] [address] Dr. Brenna Mann QuantiFERON TB2 Ag Value 0.19 IU/mL Normal [facility] Comment on above: Performed By: #### 4 [id number] #### [facility] [address] [place] [address] Dr. Brenna Mann QuantiFERON Incubation Incubation performed. Normal [facility] Comment on above: Performed By: #### 4 [id number] #### [facility] [address] [place] [address] Dr. Brenna Mann QuantiFERON-TB Gold Plus Negative Normal Negative [facility] Comment on above: Result Comment: No r esponse to M tuberculosis antigens detected. Infection with M tuberculosis is unlikely, but high risk individuals should be considered for additional testing (ATS/IDSA/CDC Clinical Practice Guidelines, 2017). The reference range is an Antigen minus Nil result of <0.35 IU/mL. Chemiluminescence immunoassay methodology Performed By: #### 4 [id number] #### [facility] [address] [place] [address] Dr. Brenna Mann HEPATITIS B SURFACE ANTIBODY , QUANTon 02-27-2022 Hepatitis B Surf AB Quant <3.1 Critically low Immunity>9.9 [facility] Comment on above: Result Comment: Stat us of Immunity Anti-HBs Level Inconsistent with Immunity 0.0 - 9.9 Consistent with Immunity >9.9 Performed By: #### H EPBSRF #### [facility] [address] [place] [address] Dr. Brenna Mann MMR IMMUNITYon 02-27-2022 Mumps Abs, IgG <9.0 Critically low Immune >10.9 [facility] Comment on above: Result Comment: Nega tive <9.0 Equivocal 9.0 - 10.9 Positive >10.9 A positive result generally indicates past exposure to Mumps virus or previous vaccination. Performed By: #### C BC #### [facility] [address] [place] [address] Dr. Brenna Mann Rubella Antibodies, IgG 1.29 index Normal Immune >0.99 [facility] Comment on above: Result Comment: Non- immune <0.90 Equivocal 0.90 - 0.99 Immune >0.99 Performed By: #### C BC #### [facility] [address] [place] [address] Dr. Brenna Mann Rubeola Ab, IgG 75.2 AU/mL Normal Immune >16.[address] [facility] Comment on above: Result Comment: Nega tive <13.5 Equivocal 13.5 - 16.4 Positive >16.4 Presence of antibodies to Rubeola is presumptive evidence of immunity except when acute infection is suspected. Performed By: #### C BC #### [facility] [address] [place] [address] Dr. Brenna Mann VARICELLA IGG ABon 2 Varicella Zoster IgG 199 index Normal Immune >165 [facility] Comment on above: Result Comment: Nega tive <135 Equivocal 135 - 165 Positive >165 A positive result generally indicates exposure to the pathogen or administration of specific immunoglobulins, but it is not indication of active infection or stage of disease. Performed By: #### V ARCEL #### [facility] [address] [place] [address] Dr. Brenna Mann Operative Reporton 2 Operative Report MR#: [id number] [facility] Pt. Name: Kavon Chao Room #: 0C Discharge Date: Birthdate: 1990 OPERATIVE REPORT DATE OF SURGERY: 02/22/2022 SURGEON: Antione Walker M.D. SWITCHBOARD WIRER: Cuco Castellon M.D. PREOPERATIVE DIAGNOSIS: Retinacular cyst, [...] Charmaine/Antione Walker M.D. Date Trans: 02/22/2022 08:47 A/traci [id number] Normal [facility] POC GLUCOSE LABon 02-22-2022 Glucose [Mass/Vol] 77 mg/dL Normal 70-100 [facility] Comment on above: Performed By: #### 8 [id number] #### [address] [place] [address], [facility] SARS COV2 IDon 2 SARS-CoV-2 (COVID-19) RNA AD+probe Ql (Unsp spec) Negative Normal NEGATIVE [facility] Comment on above: Result Comment: ID [...] Accreditation. Performed By: #### 3 1921 #### [facility] [address] Telephone Encounteron 2020 Er Physician Authentication Interface Message Text ??? Outbound call to mom ??? Wanted to follow up make sure rcvd autopsies ??? Left VM to call back Aleyda Marrufo [facility] Telephone Encounteron 2020 Er Physician Authentication Interface Message Text ??? Spoke w/[facility] to get follow up on autopsy ??? Currently taking up to 60 days is correct ??? Reached at to mom @:[phone] ??? Spoke w/mom ??? Advised of what was stated that currently undergoing microscope process ??? Verbal understanding ??? Will follow up if she hasn't heard anything soon Aleyda Ewing Normal [facility] Telephone Encounteron 2020 Er Physician Authentication Interface Message Text Outbound call to mom loss 09/14/2020 Concerned still haven't received autoscopy States that it been very difficult Provided additional support services Will follow back with me after 60 days if still no autoscopy Aleyda Marrufo [facility] BASIC METABOLIC PANELon - Anion gap [Moles/Vol] 15 mmol/L High 5-13 [facility] Comment on above: Performed By: #### L Jose, CH8 #### [facility] [address] [place] [address], Calcium [Mass/Vol] 8.2 mg/dL Low 8.4-10.4 [facility] Comment on above: Performed By: #### L Jose, CH8 #### [facility] [address] [place] [address], Chloride [Moles/Vol] 99 mmol/L Normal 97-111 [facility] Comment on above: Performed By: #### L Jose, CH8 #### [facility] [address] [place] [address], CO2 [Moles/Vol] 21 mmol/L Normal 21-30 [facility] Comment on above: Performed By: #### L Jose, CH8 #### [facility] [address] [place] [address], Creatinine [Mass/Vol] 0.49 mg/dL Low 0.50-1.10 [facility] Comment on above: Performed By: #### L Jose, CH8 #### [facility] [address] [place] [address], ESTIMATED GFR (CKD-EPI) 130 mL/min/1.73sqm Normal >=60 [facility] Comment on above: Performed By: #### L Jose, CH8 #### [facility] [address] [place] [address], Glucose [Mass/Vol] 146 mg/dL High 68-110 [facility] Comment on above: Performed By: #### L Jose, CH8 #### [facility] [address] [place] [address], Potassium [Moles/Vol] 4.3 mmol/L Normal 3.3-5.3 The [facility] Comment on above: Performed By: #### L Jose, CH8 #### [facility] [address] [place] [address], Sodium [Moles/Vol] 131 mmol/L Low 135-148 [facility] Comment on above: Performed By: #### L Jose, CH8 #### [facility] [address], [place], Urea nitrogen [Mass/Vol] 9 mg/dL Normal 8-22 [facility] Comment on above: Performed By: #### L Jose, AISHA8 #### [facility] [address], [place], CBC WITH DIFFERENTIALon 03-0 -2020 Basophils (Bld) [#/Vol] 0.02 10*3/uL Normal 0.00-0.20 [facility] Comment on above: Performed By: #### R BU #### [facility] [address], [place], Basophils/100 WBC (Bld) 0.1 % Normal <=1.9 [facility] Comment on above: Performed By: #### R BU #### [facility] [address], [place], Eosinophils (Bld) [#/Vol] 0.03 10*3/uL Normal 0.00-0.70 [facility] Comment on above: Performed By: #### R BU #### [facility] [address] [place], [place], Eosinophils/100 WBC (Bld) 0.2 % Normal 0.1-4.0 [facility] Comment on above: Performed By: #### R BU #### [facility] [address] [place], [place], Erythrocyte distribution width (RBC) [Ratio] 15.3 % High 11.5-14.5 The [facility] Comment on above: Performed By: #### R BU #### [facility] [address] [place], [place], Hematocrit (Bld) [Volume fraction] 19.7 % Critically low 36.0-46.0 [facility] Comment on above: Performed By: #### R BU #### [facility] [address], [place], Hemoglobin (Bld) [Mass/Vol] 6.6 g/dL Critically low 12.0-15.0 The [facility] Comment on above: Performed By: #### R BU #### [facility] [address] [place], [place], Lymphocytes (Bld) [#/Vol] 2.12 10*3/uL Normal 1.00-4.80 The [facility] Comment on above: Performed By: #### R BU #### [facility] [address] [place], [place], Lymphocytes/100 WBC (Bld) 14.9 % Low 24.0-44.0 The [facility] Comment on above: Performed By: #### R BU #### [facility] [address] [place], [place], MCH (RBC) [Entitic mass] 27.4 pg Normal 26.0-34.0 The [facility] Comment on above: Performed By: #### R BU #### [facility] [address] [place], MCHC (RBC) [Mass/Vol] 33.5 g/dL Normal 32.0-35.9 The [facility] Comment on above: Performed By: #### R BU #### [facility] [address] [place], [place], MCV (RBC) [Entitic vol] 82 fL Normal 80-100 The [facility] Comment on above: Performed By: #### R BU #### [facility] [address] [place], [place], MONOCYTE DISTRIBUTION WIDTH Normal The [facility] Comment on above: Performed By: #### R BU #### [facility] [address], [place], Monocytes (Bld) [#/Vol] 1.34 10*3/uL High 0.20-1.00 The [facility] Comment on above: Performed By: #### R BU #### [facility] [address], [place], Monocytes/100 WBC (Bld) 9.4 % Normal 2.0-11.0 The [facility] Comment on above: Performed By: #### R BU #### [facility] [address] [place] [address], Neutrophils (Bld) [#/Vol] 10.75 10*3/uL High 1.50-8.00 [facility] Comment on above: Performed By: #### R BU #### [facility] [address] [place] [address], Neutrophils/100 WBC (Bld) 75.4 % Normal 31.0-76.0 [facility] Comment on above: Performed By: #### R BU #### [facility] [address] [place] [address], Platelet mean volume (Bld) [Entitic vol] 10.1 fL Normal 7.5-11.2 [facility] Comment on above: Performed By: #### R BU #### [facility] [address] [place] [address], Platelets (Bld) [#/Vol] 131 10*3/uL Low 150-400 [facility] Comment on above: Performed By: #### R BU #### [facility] [address] [place] [address], RBC (Bld) [#/Vol] 2.41 10*6/uL Low 4.00-5.20 [facility] Comment on above: Performed By: #### R BU #### [facility] [address] [place] [address], WBC (Bld) [#/Vol] 14.3 10*3/uL High 4.5-11.5 [facility] Comment on above: Performed By: #### R BU #### [facility] [address] [place] [address], COMPLETE BLOOD COUNTon 09-15 Erythrocyte distribution width (RBC) [Ratio] 15.5 % High 11.5-14.5 [facility] Comment on above: Performed By: #### 1 4601, [id number] #### [facility] [address] [place] [address] Hematocrit (Bld) [Volume fraction] 23.5 % Low 36.0-46.0 [facility] Comment on above: Performed By: #### 1 4601, [id number] #### [facility] [address] [facility] [place], [place] Hemoglobin (Bld) [Mass/Vol] 7.8 g/dL Low 12.0-15.0 [facility] Comment on above: Performed By: #### 1 4601, [id number] #### [facility] [address] [facility] [place], [place] MCH (RBC) [Entitic mass] 28.1 pg Normal 26.0-34.0 [facility] Comment on above: Performed By: #### 1 4601, [id number] #### [facility] [address] [facility] [place], [place] MCHC (RBC) [Mass/Vol] 33.2 g/dL Normal 32.0-35.9 [facility] Comment on above: Performed By: #### 1 4601, [id number] #### [facility] [address] [facility] [place], [place] MCV (RBC) [Entitic vol] 85 fL Normal 80-100 [facility] Comment on above: Performed By: #### 1 4601, [id number] #### [facility] [address] [facility] [place], [place] Platelet mean volume (Bld) [Entitic vol] 9.9 fL Normal 7.5-11.2 [facility] Comment on above: Performed By: #### 1 4601, [id number] #### [facility] [address] [facility] [place], [place] Platelets (Bld) [#/Vol] 109 10*3/uL Low 150-400 [facility] Comment on above: Performed By: #### 1 4601, [id number] #### [facility] [address] [facility] [place], [place] RBC (Bld) [#/Vol] 2.77 10*6/uL Low 4.00-5.20 [facility] Comment on above: Performed By: #### 1 4601, [id number] #### [facility] [address] [facility] [place], [place] WBC (Bld) [#/Vol] 13.2 10*3/uL High 4.5-11.5 [facility] Comment on above: Performed By: #### 1 4601, [id number] #### [facility] [address] [place] [address] [place], [place] Erythrocyte distribution width (RBC) [Ratio] 15.2 % High 11.5-14.5 [facility] Comment on above: Performed By: #### C BDYFLD #### [facility] [address] [place] [address] Hematocrit (Bld) [Volume fraction] 17.7 % Critically low 36.0-46.0 [facility] Comment on above: Performed By: #### C BDYFLD #### [facility] [address] [place] [address] [place], [place] Hemoglobin (Bld) [Mass/Vol] 6.0 g/dL Critically low 12.0-15.0 [facility] Comment on above: Performed By: #### C BDYFLD #### [facility] [address] [place] [address] [place], [place] MCH (RBC) [Entitic mass] 27.9 pg Normal 26.0-34.0 The [facility] Comment on above: Performed By: #### C BDYFLD #### [facility] [address] [place] [address] [place], [place] MCHC (RBC) [Mass/Vol] 34.1 g/dL Normal 32.0-35.9 The [facility] Comment on above: Performed By: #### C BDYFLD #### [facility] [address] [facility] [place], [place] MCV (RBC) [Entitic vol] 82 fL Normal 80-100 The [facility] Comment on above: Performed By: #### C BDYFLD #### [facility] [address] [place] [address] Platelet mean volume (Bld) [Entitic vol] 10.1 fL Normal 7.5-11.2 [facility] Comment on above: Performed By: #### C BDYFLD #### [facility] [address] [facility] [place], [place] Platelets (Bld) [#/Vol] 113 10*3/uL Low 150-400 The [facility] Comment on above: Performed By: #### C BDYFLD #### [facility] [address] [place] [address] [place], [place] RBC (Bld) [#/Vol] 2.17 10*6/uL Low 4.00-5.20 The [facility] Comment on above: Performed By: #### C BDYFLD #### [facility] [address] [place] [address] [place], [place] WBC (Bld) [#/Vol] 13.4 10*3/uL High 4.5-11.5 The [facility] Comment on above: Performed By: #### C BDYFLD #### [facility] [address] [place] [address] [place], [place] FIBRINOGENon 09-15-2020 FIBRINOGEN 372 mg/dL Normal 200-500 The [facility] Comment on above: Performed By: #### 1 4601, [id number] #### [facility] [address] [place] [address] [place], [place] LDHon 09-15-2020 LD 247 IU/L High 50-220 [facility] Comment on above: Performed By: #### L D, CH8 #### [facility] [address] [place] [address], PARTIAL THROMBOPLASTIN TIMEo n 09-15-2020 aPTT Coag (Bld) [Time] 26 s Normal 25-37 [facility] Comment on above: Performed By: #### 1 4601, [id number] #### [facility] [address] [place] [address] [place], [place] PROTHROMBIN TIME AND INRon 0 09-15-2020 INR Coag (PPP) [Relative time] 0.98 {INR} Normal 0.90-1.10 The [facility] Comment on above: Performed By: #### 1 4601, [id number] #### [facility] [address] [place] [address] [place], [place] PT Coag (PPP) [Time] 11.1 s Normal 9.7-12.9 [facility] Comment on above: Performed By: #### 1 4601, [id number] #### [facility] [address] [place] [address] RED BLOOD CELL COMPONENTon 0 09-15-2020 BB ORDER ITEM Product status info to follow Normal The [facility] Comment on above: Performed By: #### R BU #### [facility] [address] [place] [address], RED BLOOD CELL UNIT STATUSon 09-15-2020 BLOOD PRODUCT CODE [id number] Normal The [facility] Comment on above: Performed By: #### R BU #### [facility] [address] [place] [address], BLOOD PRODUCT DESCRIPTION Red Blood Cells Normal The [place] Comment on above: Performed By: #### R ALICIA #### [facility] [address] [place] [address], BLOOD PRODUCT STATUS Released to avail Normal The [facility] Comment on above: Performed By: #### R BU #### [facility] [address] [place] [address], BLOOD PRODUCT UNIT INFO [id number] Normal The [facility] Comment on above: Performed By: #### R BU #### [facility] [address] [place] [address], BLOOD PRODUCT UNIT INFO [id number] Normal The [facility] Comment on above: Performed By: #### R BU #### [facility] [address] [place] [address], BLOOD PRODUCT UNIT TYPE 6200 Normal The [facility] Comment on above: Result Comment: A Po s Performed By: #### R BU #### [facility] [address] [place] [address], CROSSMATCH INTERPRETATION Compatible (E) Normal The [facility] Comment on above: Performed By: #### R BU #### [facility] [address] [place] [address], ABO RH TYPEon 09-14-2020 ABO and Rh group Nom (Bld) Blood group A Rh(D) positive Normal The [facility] Comment on above: Performed By: #### 1 4601, [id number] #### [facility] [address] [facility] [address] [place] CHROMOSOME ANALYSIS, BONE MA RROWon 09-14-2020 CHROMOSOME ANALYSIS, BONE MARROW Resulting Agency Address Site ID: AMD Name: [facility] Address: [address] [place] [address] [place] Director: Shalom Dumont M.D.,PhD TNP TEST NOT PERFORMED Test cancelled for reorder purposes. Normal [facility] Comment on above: Performed By: #### 1 4601, [id number] #### [facility] [address] [facility] [place], [place] CHROMOSOME ANALYSIS, TISSUEo n 09-14-2020 CHROMOSOME ANALYSIS, TISSUE CHROMOSOMES, TISSUE: TNP *Test Not Performed. * *Tissue culture and chromosome * *analysis identified insufficient * *metaphases for full cytogenetic * *interpretation. This test code is * *replaced with a code that * *summarizes the culture results. * *A fee for tissue culture will be * *included for this specimen. * Normal [facility] Comment on above: Order Comment: [employer] Agency Address Site ID: AMD Name: [facility] Address: [address] [place] [address] Dr [place], [place] Director: Shalom Dumont M.D.,PhD Performed By: #### 1 4601, [id number] #### [facility] [address] [facility] [place], [place] CHROMOSOME ANALYSIS, TISSUE CHROMOSOMES, TISSUE: see note Order ID: [id number] Specimen Type: Products of Conception Clinical Indication: IUFD RESULT: NORMAL FEMALE KARYOTYPE See NOTE INTERPRETATION: Chromosome analysis revealed normal G-band patterns within the limits of standard cytogenetic analysis. Please expect the results of any other concurrent study in a separate report. NOTE: This is a report on cultures set from chorionic villi. A tissue specimen ([id number]) did not provided outgrowth. NOMENCLATURE: 46,XX ASSAY INFORMATION: Method: G-Banding Cells Counted: 20 Colonies Counted: 0 Band Level: 450 Cells Analyzed: 5 Cells Karyotyped: 2 This test does not address genetic disorders that cannot be detected by standard cytogenetic methods, or rare events such as low level mosaicism or subtle rearrangements. Maternal cell contamination is not excluded. Lino Daly, Ph.D., [facility], [employer], Cytogenetics and Genomics, Electronic Signature: 10/06/2020 3:36 PM Normal [facility] Comment on above: Order Comment: The r eference range and other method performance specifications have not been established for this body fluid. The test must be integrated into the clinical context for interpretation. Performed By: #### G MARGIE BF #### [facility] [address] [place] [address], COMPLETE BLOOD COUNTon 09-14 Erythrocyte distribution width (RBC) [Ratio] 15.3 % High 11.5-14.5 [facility] Comment on above: Performed By: #### C BC #### [facility] [address] [place] [address], Hematocrit (Bld) [Volume fraction] 20.5 % Low 36.0-46.0 [facility] Comment on above: Performed By: #### C BC #### [facility] [address] [place] [address], Hemoglobin (Bld) [Mass/Vol] 7.0 g/dL Low 12.0-15.0 [facility] Comment on above: Performed By: #### C BC #### S [facility] [address] [place] [address], MCH (RBC) [Entitic mass] 27.7 pg Normal 26.0-34.0 [facility] Comment on above: Performed By: #### C BC #### [facility] [address] [place] [address], MCHC (RBC) [Mass/Vol] 33.9 g/dL Normal 32.0-35.9 The [facility] Comment on above: Performed By: #### C BC #### [facility] [address] [place], [place], MCV (RBC) [Entitic vol] 82 fL Normal 80-100 [facility] Comment on above: Performed By: #### C BC #### [facility] [address] [place], [place], Platelet mean volume (Bld) [Entitic vol] 10.3 fL Normal 7.5-11.2 [facility] Comment on above: Performed By: #### C BC #### [facility] [address] [place], [place], Platelets (Bld) [#/Vol] 123 10*3/uL Low 150-400 [facility] Comment on above: Performed By: #### C BC #### [facility] [address], [place], RBC (Bld) [#/Vol] 2.51 10*6/uL Low 4.00-5.20 [facility] Comment on above: Performed By: #### C BC #### [facility] [address] [place] [address], WBC (Bld) [#/Vol] 18.1 10*3/uL High 4.5-11.5 [facility] Comment on above: Performed By: #### C BC #### [facility] [address] [place] [address], Erythrocyte distribution width (RBC) [Ratio] 15.4 % High 11.5-14.5 The [facility] Comment on above: Performed By: #### 1 4601, [id number] #### [facility] [address] [facility] [place], [place] Hematocrit (Bld) [Volume fraction] 26.5 % Low 36.0-46.0 The [facility] Comment on above: Performed By: #### 1 4601, [id number] #### [facility] [address] [facility] [place], [place] Hemoglobin (Bld) [Mass/Vol] 8.7 g/dL Low 12.0-15.0 [facility] Comment on above: Performed By: #### 1 460, [id number] #### [facility] [address] [facility] [place], [place] MCH (RBC) [Entitic mass] 26.9 pg Normal 26.0-34.0 [facility] Comment on above: Performed By: #### 1 460, [id number] #### [facility] [address] [facility] [place], [place] MCHC (RBC) [Mass/Vol] 32.7 g/dL Normal 32.0-35.9 [facility] Comment on above: Performed By: #### 1 460, [id number] #### [facility] [address] [facility] [place], [place] MCV (RBC) [Entitic vol] 82 fL Normal 80-100 [facility] Comment on above: Performed By: #### 1 460, [id number] #### [facility] [address] [facility] [place], [place] Platelet mean volume (Bld) [Entitic vol] 10.9 fL Normal 7.5-11.2 [facility] Comment on above: Performed By: #### 1 460, [id number] #### [facility] [address] [facility] [place], [place] Platelets (Bld) [#/Vol] 235 10*3/uL Normal 150-400 [facility] Comment on above: Performed By: #### 1 460, [id number] #### [facility] [address] [facility] [place], [place] RBC (Bld) [#/Vol] 3.22 10*6/uL Low 4.00-5.20 [facility] Comment on above: Performed By: #### 1 460, [id number] #### [facility] [address] [facility] [place], [place] WBC (Bld) [#/Vol] 22.9 10*3/uL High 4.5-11.5 [facility] Comment on above: Performed By: #### 1 460, [id number] #### [facility] [address] [facility] [place], [place] FIBRINOGENon 09-14-2020 FIBRINOGEN 312 mg/dL Normal 200-500 The [facility] Comment on above: Performed By: #### 1 4601, [id number] #### [facility] [address] [facility] [place], [place] FIBRINOGEN 329 mg/dL Normal 200-500 The [facility] Comment on above: Performed By: #### R ALICIA #### S [facility]ORATORY [address] [place] [address], LDHon 09-14-2020 LD 300 IU/L High 50-220 The [facility] Comment on above: Performed By: #### G MARGIE BF #### [facility] [address] [place] [address], PARTIAL THROMBOPLASTIN TIMEo n 09-14-2020 aPTT Coag (Bld) [Time] 20 s Low 25-37 The [facility] Comment on above: Performed By: #### 1 460, [id number] #### [facility] [address] [facility] [place], [place] aPTT Coag (Bld) [Time] 27 s Normal 25-37 The [facility] Comment on above: Performed By: #### R ALICIA #### [facility] [address] [place] [address], PROTHROMBIN TIME AND INRon 0 09-14-2020 INR Coag (PPP) [Relative time] 1.02 {INR} Normal 0.90-1.10 The [facility] Comment on above: Performed By: #### 1 460, [id number] #### [facility] [address] [facility] [place], [place] PT Coag (PPP) [Time] 11.5 s Normal 9.7-12.9 The [facility] Comment on above: Performed By: #### 1 4601, [id number] #### [facility] [address] [facility] [place], [place] INR Coag (PPP) [Relative time] 1.04 {INR} Normal 0.90-1.10 The [facility] Comment on above: Performed By: #### R BU #### S PATHOLOGY LABORATORY [address] [place], [place], PT Coag (PPP) [Time] 11.8 s Normal 9.7-12.9 The [facility] Comment on above: Performed By: #### R BU #### [facility] [address] [place], [place], Progress Noteson 09-14-2020 Er Physician Authentication Interface Message Text To room to evaluate patient. Concern for tachysystole on tocometry, patient with persistent hypotension following epidural placement, with ongoing resuscitation from anesthesia. SVE: 5/70/-2. No evidence of blood on perineal pad. [...] Hutton MD, MPH PGY-3, Obstetrics and Gynecology [phone] Normal The [facility] RED BLOOD CELL COMPONENTon 0 09-14-2020 BB ORDER ITEM Product status info to follow Normal The [facility] Comment on above: Performed By: #### C BDYFLD #### [facility] [address] [facility] [place], [place] RED BLOOD CELL UNIT STATUSon 09-14-2020 BLOOD PRODUCT CODE [id number] Normal [facility] Comment on above: Performed By: #### 1 4601, [id number] #### [facility] [address] [facility] [place], [place] BLOOD PRODUCT DESCRIPTION Red Blood Cells Normal The [facility] Comment on above: Performed By: #### 1 4601, [id number] #### [facility] [address] [facility] [place], [place] BLOOD PRODUCT STATUS Transfused Normal The [facility] Comment on above: Performed By: #### 1 4601, [id number] #### [facility] [address] [facility] [place], [place] BLOOD PRODUCT UNIT INFO [id number] Normal The [facility] Comment on above: Performed By: #### 1 4601, [id number] #### [facility] [address] [facility] [place], [place] BLOOD PRODUCT UNIT INFO [id number] Normal The [facility] Comment on above: Performed By: #### 1 4601, [id number] #### [facility] [address] [facility] [place], [place] BLOOD PRODUCT UNIT TYPE 5100 Normal The [place] Comment on above: Result Comment: O Po s Performed By: #### 1 4601, [id number] #### [facility]ology [address] [place] [address] [place], [place] CROSSMATCH INTERPRETATION Compatible (IS) Normal The [facility] Comment on above: Performed By: #### 1 4601, [id number] #### [facility] [address] [facility] [place], [place] AEROBIC BODY FLUID CULTUREon 09-13-2020 AEROBIC BODY FLUID CULTURE C BDYFLD: No Growth GRAM STAIN: This Gram Stain was performed on a Cytocentrifuged specimen. No Polymorphonuclear Leukocytes seen 3+ Squamous Epithelial Cells No organisms seen Normal The [facility] Comment on above: Performed By: #### C BDYFLD #### [facility] [address] [facility] [place], [place] BASIC METABOLIC PANELon - Anion gap [Moles/Vol] 18 mmol/L High 5-13 The [facility] Comment on above: Performed By: #### G MARGIE BF #### [facility] [address] [place] [address], Calcium [Mass/Vol] 9.2 mg/dL Normal 8.4-10.4 The [facility] Comment on above: Performed By: #### Josselin HANSON BF #### [facility] [address] [place] [address], Chloride [Moles/Vol] 101 mmol/L Normal 97-111 The [facility] Comment on above: Performed By: #### Josselin HANSON BF #### [facility] [address] [place] [address], CO2 [Moles/Vol] 21 mmol/L Normal 21-30 The [facility] Comment on above: Performed By: #### Josselin HANSON BF #### [facility] [address] [place] [address], Creatinine [Mass/Vol] 0.37 mg/dL Low 0.50-1.10 The [facility] Comment on above: Performed By: #### Josselin HANSON BF #### [facility] [address] [place] [address], ESTIMATED GFR (CKD-EPI) 143 mL/min/1.73sqm Normal >=60 The [facility] Comment on above: Performed By: #### Josselin HANSON BF #### [facility] [address] [place] [address], Glucose [Mass/Vol] 78 mg/dL Normal 68-110 The [facility] Comment on above: Performed By: #### Josselin HANSON BF #### [facility] [address] [place] [address], Potassium [Moles/Vol] 4.2 mmol/L Normal 3.3-5.3 The [facility] Comment on above: Performed By: #### Josselin HANSON BF #### [facility] [address] [place] [address], Sodium [Moles/Vol] 136 mmol/L Normal 135-148 The [facility] Comment on above: Performed By: #### Josselin HANSON BF #### [facility] [address] [place] [address], Urea nitrogen [Mass/Vol] 4 mg/dL Low 8-22 The [facility] Comment on above: Performed By: #### Josselin HANSON BF #### [facility] [address] [place] [address], CARDIOLIPIN ANTIBODY IGG/IGM on 09-13-2020 ACARD G < 1.6 Normal <20.0 [facility] Comment on above: Order Comment: Refer ence Range:Cardiolipin IgG AB : Negative :<20.0 GPL U/mL Positive :> or = to 20.0 GPL U/mLCardiolipin IgM AB : Negative :<20.0 MPL U/mL Positive :> or = to 20.0 MPL U/mL Performed By: #### R BU #### [facility] [address] [place] [address], ACARD M 0.7 MPL U/mL Normal <20.0 [facility] Comment on above: Order Comment: Refer ence Range:Cardiolipin IgG AB : Negative :<20.0 GPL U/mL Positive :> or = to 20.0 GPL U/mLCardiolipin IgM AB : Negative :<20.0 MPL U/mL Positive :> or = to 20.0 MPL U/mL Performed By: #### Blessing BU #### [facility] [address] [place] [address], CBC WITH DIFFERENTIALon 08-18 Basophils (Bld) [#/Vol] 0.03 10*3/uL Normal 0.00-0.20 [facility] Comment on above: Performed By: #### Josselin HANSON BF #### [facility] [address] [place] [address], Basophils/100 WBC (Bld) 0.3 % Normal <=1.9 [facility] Comment on above: Performed By: #### Josselin CAN #### [facility] [address] [place] [address], Eosinophils (Bld) [#/Vol] 0.04 10*3/uL Normal 0.00-0.70 [facility] Comment on above: Performed By: #### Josselin CAN #### [facility] [address] [place] [address], Eosinophils/100 WBC (Bld) 0.4 % Normal 0.1-4.0 The [facility] Comment on above: Performed By: #### Josselin HANSON BF #### [facility] [address] [place] [address], Erythrocyte distribution width (RBC) [Ratio] 15.3 % High 11.5-14.5 The [facility] Comment on above: Performed By: #### Josselin HANSON BF #### [facility] [address] [place] [address], Hematocrit (Bld) [Volume fraction] 37.8 % Normal 36.0-46.0 The [facility] Comment on above: Performed By: #### Josselin HANSON BF #### [facility] [address] [place] [address], Hemoglobin (Bld) [Mass/Vol] 12.5 g/dL Normal 12.0-15.0 The [facility] Comment on above: Performed By: #### Josselin HANSON BF #### [facility] [address] [place] [address], Lymphocytes (Bld) [#/Vol] 2.28 10*3/uL Normal 1.00-4.80 [facility] Comment on above: Performed By: #### Josselin HANSON BF #### [facility] [address] [place] [address], Lymphocytes/100 WBC (Bld) 22.1 % Low 24.0-44.0 The [facility] Comment on above: Performed By: #### Josselin HANSON BF #### [facility] [address] [place] [address], MCH (RBC) [Entitic mass] 27.2 pg Normal 26.0-34.0 The [facility] Comment on above: Performed By: #### Josselin HANSON BF #### [facility] [address] [place] [address], MCHC (RBC) [Mass/Vol] 33.2 g/dL Normal 32.0-35.9 [facility] Comment on above: Performed By: #### Josselin HANSON BF #### [facility] [address] [place] [address], MCV (RBC) [Entitic vol] 82 fL Normal 80-100 The [facility] Comment on above: Performed By: #### Josselin MARGIE BF #### [facility] [address] [place], [place], MONOCYTE DISTRIBUTION WIDTH Normal The [facility] Comment on above: Performed By: #### G MARGIE BF #### [facility] [address] [place], [place], Monocytes (Bld) [#/Vol] 0.77 10*3/uL Normal 0.20-1.00 The [facility] Comment on above: Performed By: #### G MARGIE BF #### [facility] [address] [place], [place], Monocytes/100 WBC (Bld) 7.4 % Normal 2.0-11.0 The [facility] Comment on above: Performed By: #### G MARGIE BF #### [facility] [address] [place], [place], Neutrophils (Bld) [#/Vol] 7.21 10*3/uL Normal 1.50-8.00 The [facility] Comment on above: Performed By: #### Josselin MARGIE BF #### [facility] [address] [place], [place], Neutrophils/100 WBC (Bld) 69.9 % Normal 31.0-76.0 The [facility] Comment on above: Performed By: #### Josselin MARGIE BF #### [facility] [address] [place], [place], Platelet mean volume (Bld) [Entitic vol] 10.7 fL Normal 7.5-11.2 The [facility] Comment on above: Performed By: #### G MARGIE BF #### [facility] [address] [place], [place], Platelets (Bld) [#/Vol] 160 10*3/uL Normal 150-400 [facility] Comment on above: Performed By: #### Josselin MARGIE BF #### [facility] [address] [place], [place], RBC (Bld) [#/Vol] 4.61 10*6/uL Normal 4.00-5.20 The [facility] Comment on above: Performed By: #### G MARGIE BF #### [facility] [address] [place] [address], WBC (Bld) [#/Vol] 10.3 10*3/uL Normal 4.5-11.5 The [facility] Comment on above: Performed By: #### G MARGIE BF #### [facility] [address] [place] [address], CYTOMEGALOVIRUS ANTIBODY IGG on 09-13-2020 CMV G Reactive Abnormal Nonreactive The [facility] Comment on above: Performed By: #### C MV G #### [facility] [address] [place] [address], CYTOMEGALOVIRUS ANTIBODY IGM on 09-13-2020 CMV M < 0.2 Normal The [facility] Comment on above: Order Comment: Refer ence Range:Negative < or = to 0.8 AIEquivocal 0.9 - 1.0 AIPositive > or = to 1.1 AIThe magnitude of the result measured above the cut-off is not indicative of the total amount of the antibodies detected. The following results were obtained with the [employer] 2200 CMV IgM test. Results obtained from other manufacturers' assay methods may not be used interchangeably. Performed By: #### C BDYFLD #### [facility] [address] [place] [address] HEMOGLOBIN ELUTIONon 0 09-13-2020 CELL/ RHIG COMMENTS Detected Normal The [facility] Comment on above: Performed By: #### G MARGIE BF #### [facility] [address] [place] [address], HEMOGLOBIN ELUTION 0.00 % Normal <=0.00 The [facility] Comment on above: Performed By: #### G MARGIE BF #### [facility] [address] [place] [address], TOTAL MLS OF CELLS 0.00 Normal <=0.00 The [facility] Comment on above: Performed By: #### G MARGIE BF #### [facility] [address] [place] [address], FIBRINOGENon 09-13-2020 FIBRINOGEN 541 mg/dL High 200-500 The [facility] Comment on above: Performed By: #### G MARGIE BF #### S PATHOLOGY LABORATORY [address] [place], [place], FLUID CELL COUNTon 1 Clarity (U) Cloudy Normal The [facility] Comment on above: Order Comment: The r eference range and other method performance specifications have not been established for this body fluid. The test must be integrated into the clinical context for interpretation. Performed By: #### G MARGIE BF #### S [facility] [address] [place], [place], Color (U) Brown Normal The [facility] Comment on above: Order Comment: The r eference range and other method performance specifications have not been established for this body fluid. The test must be integrated into the clinical context for interpretation. Performed By: #### G MARGIE BF #### S [facility]ORY [address] [place] [address], RBC (Bld) [#/Vol] 0.23848 10*6/uL Normal Th e [facility] Comment on above: Order Comment: The r eference range and other method performance specifications have not been established for this body fluid. The test must be integrated into the clinical context for interpretation. Performed By: #### G MARGIE BF #### [facility] [address] [place], [place], WBC (Bld) [#/Vol] 0.004 10*3/uL Normal The [facility] Comment on above: Order Comment: The r eference range and other method performance specifications have not been established for this body fluid. The test must be integrated into the clinical context for interpretation. Performed By: #### G MARGIE BF #### S [facility] [address] [place], [place], FLUID DIFFERENTIALon 021 CELLS COUNTED TOTAL # IN BLOOD 7 Normal The [facility] Comment on above: Performed By: #### G MARGIE BF #### S [facility] LAB[facility] [address] [place], [place], FLUID, LYMPHOCYTES 57 % Normal [facility] Comment on above: Performed By: #### G MARGIE BF #### [facility] [address] [place], [place], FLUID, MONOCYTES/MACROPHA GES 14 % Normal The [facility] Comment on above: Performed By: #### G MARGIE BF #### [facility] [address] [place], [place], FLUID, NEUTROPHILS 29 % Normal The [facility] Comment on above: Performed By: #### G MARGIE BF #### [facility] [address] [place], [place], GLUCOSE, BODY FLUIDon 2020 GLUCOSE, FLUID 18 mg/dL Normal The [facility] Comment on above: Order Comment: The r eference range and other method performance specifications have not been established for this body fluid. The test must be integrated into the clinical context for interpretation. Performed By: #### G MARGIE BF #### [facility] [address] [place], [place], HEMOGLOBIN A1Con 09-13-2020 Glucose [Mass/Vol] 80 mg/dL Normal The [facility] Comment on above: Order Comment: HbA1c of 5.7-6.4% have increased risk for diabetes and CV(Source :ADA 2014 Standard of Medical Care in Diabetes) Performed By: #### R BU #### S PATHOLOGY LABORATORY [address] [place], [place], HbA1c (Bld) [Mass fraction] 4.4 % Normal 4.0-5.6 The [facility] Comment on above: Order Comment: HbA1c of 5.7-6.4% have increased risk for diabetes and CV(Source :ADA 2014 Standard of Medical Care in Diabetes) Performed By: #### R BU #### S [facility] LAB[facility] [address] [place], [place], HEPATIC FUNCTION PANELon Albumin [Mass/Vol] 2.7 g/dL Low 3.4-5.1 The [facility] Comment on above: Performed By: #### L D, CH8 #### S [facility] [address] [place], [place], ALK 101 IU/L Normal 40-200 The [facility] Comment on above: Performed By: #### L Jose, CH8 #### S [facility] LABORATORY [address] [place] [address], ALT [Catalytic activity/Vol] 18 U/L Normal 7-40 The [facility] Comment on above: Performed By: #### L Jose, CH8 #### S [facility] LABORATORY [address] [place] [address], AST [Catalytic activity/Vol] 8 U/L Normal 7-40 The [facility] Comment on above: Result Comment: Hemo lysis present Performed By: #### L Jose, CH8 #### S [facility] LABORATORY [address] [place] [address], Bilirubin [Mass/Vol] 1.9 mg/dL High 0.1-1.5 The [facility] Comment on above: Performed By: #### L Jose, CH8 #### [facility] [address] [place] [address], Bilirubin.direct [Mass/Vol] 0.80 mg/dL High 0.10-0.30 The [facility] Comment on above: Performed By: #### Louis Garcia, CH8 #### [facility] [address] [place] [address], Protein [Mass/Vol] 5.8 g/dL Low 6.2-8.3 The [facility] Comment on above: Performed By: #### Louis Garcia, CH8 #### [facility] [address] [place] [address], HEPATITIS B SURFACE ANTIGENo n 09-13-2020 HBSAG Non-Reactive Normal Non-Reactive The [facility] Comment on above: Performed By: #### H BSAG #### [facility] [address] [place] [address], HEPATITIS C ANTIBODYon 09-13 HCV Non-Reactive Normal Nonreactive The [facility] Comment on above: Performed By: #### 1 4601, [id number] #### [facility] [address] [place] [address] HIV1 HIV2 AGAB SCRNon 2020 HIV AG-AB SCREEN Non-Reactive Normal Non-Reactive The [facility] Comment on above: Order Comment: HIV I nformation: ???[place] Rev. code 3701.243(E):This information has been disclosed [...] #### R BU #### [facility] [address] [place] [address], LDHon 09-13-2020 LD 501 IU/L High 50-220 [facility] Comment on above: Result Comment: Hemo lysis present Performed By: #### C BDYFLD #### [facility] [address] [facility] [place], [place] LUPUS ANTICOAGULANT PANELon 09-13-2020 LA Negative Normal Negative [facility] Comment on above: Order Comment: [employer] Address Site ID: AMD Name[facility] Address: [address] [place] [address] [place] [address] Director: Shalom Dumont M.D.,PhD Performed By: #### 1 4601, [id number] #### [facility] [address] [facility] [place], [place] NOVEL CORONAVIRUS (COVID-19) on 09-13-2020 SARS-CoV-2 (COVID-19) RNA AD+probe Ql (Unsp spec) Not detected Normal Not Detected The [facility] Comment on above: Order Comment: This test is intended for use only under Emergency Use Authorization (EUA). This test was developed, and its performance characteristics determined by [facility] which is certified under CLIA as qualified to perform high complexity clinical laboratory testing. Result Comment: This assay was performed using [employer] RTPCR technology. Performed By: #### 1 4601, [id number] #### [facility] [address] [facility] [address] [place], [place] PARTIAL THROMBOPLASTIN TIMEo n 09-13-2020 aPTT Coag (Bld) [Time] 29 s Normal 25-37 The [facility] Comment on above: Performed By: #### 1 4601, [id number] #### [facility] [address] [facility] [address] [place], [place] PARVOVIRUS B-19 ANTIBODIESon 09-13-2020 PARVOVIRUS B19 IGG 5.1 High <0.9 The [place] Comment on above: Order Comment: [facility] Address Site ID: [facility] Name: [employer] [facility] Address: [address] [place] [address] [place], [place] Director: Shalom Dumont M.D.,PhD Performed By: #### C BDYFLD #### [facility] [address] [facility] [address] [place], [place] PARVOVIRUS B19 IGM 0.1 Normal <0.9 The [facility] Comment on above: Order Comment: [facility] Site ID: [facility] Name: [employer] [facility] Address: [address] [place] [address] [place], [place] Director: Shalom Dumont M.D.,PhD Result Comment: [...] Performed By: #### C BDYFLD #### [facility] [address] [facility] [address] [place], [place] PROTHROMBIN TIME AND INRon 0 09-13-2020 INR Coag (PPP) [Relative time] 0.95 {INR} Normal 0.90-1.10 The [place] Comment on above: Performed By: #### 1 4601, [id number] #### [facility] [address] [facility] [place], [place] PT Coag (PPP) [Time] 10.7 s Normal 9.7-12.9 The [facility] Comment on above: Performed By: #### 1 4601, [id number] #### [facility] [address] [facility] [place], [place] RUBELLAon 09-13-2020 RUB 13.0 IU/mL Normal The [facility] Comment on above: Order Comment: Nonre [...] IgG EIA assay. Values obtained with different living advisor???s assay methods may not be used interchangeably. Performed By: #### C BDYFLD #### [facility] [address] [facility] [place], [place] RUBELLA INTERPRETATION Equivocal Normal The [facility] Comment on above: Order Comment: Nonre active [...] IgG EIA assay. Values obtained with different living advisor???s assay methods may not be used interchangeably. Performed By: #### C BDYFLD #### [facility] [address] [facility] [address] [place], [place] SYPHILIS WITH CONFIRMATIONon 09-13-2020 SYPHILIS TOTAL (IGG/IGM) Non-Reactive Normal Non-Reactive The [facility] Comment on above: Order Comment: No Se rologic evidence of syphilis.A nonreactive result does not exclude the possibility of exposure to or infection with T. pallidum. Antibodies may be at low or undetectable levels in incubating or early primary disease and in some clinical conditions. Performed By: #### R BU #### [facility] [address] [place] [address], TPPA Normal [facility] Comment on above: Order Comment: No Se rologic evidence of syphilis.A nonreactive result does not exclude the possibility of exposure to or infection with T. pallidum. Antibodies may be at low or undetectable levels in incubating or early primary disease and in some clinical conditions. Performed By: #### R BU #### [facility] [address] [place], [place], T4 BINDING GLOBULINon 2020 THYROXINE BINDING GLOBULIN 45.8 mcg/mL High 13.5-30.9 [facility] Comment on above: Order Comment: [place] Address Site ID: [facility] Name: [facility], [facility] Address: [address] [place] [address] [place], [place] Director: Shalom Dumont M.D.,PhD Result Comment: To convert to nmol/L, multiply the result by 18.5. Performed By: #### C BDYFLD #### [facility] [address] [facility] [place], [place] THYROXINE (T4), FREEon 09-13 T4 F 0.69 ng/dL Normal 0.45-1.80 [facility] Comment on above: Performed By: #### 1 4601, [id number] #### [facility] [address] [facility] [place], [place] TOTAL PROTEIN WITH CREATININ E, RANDOM URINEon 09-13-2020 CREATININE, URINE 20 mg/dL Normal 10-300 [facility] Comment on above: Performed By: #### 1 4601, [id number] #### [facility] [address] [facility] [place], [place] TOTAL PROTEIN, URINE < 6 Normal <=100 [facility] Comment on above: Performed By: #### 1 4601, [id number] #### [facility] [address] [facility] [place], [place] TP/CREAT RATIO < 300 High <=164 [facility] Comment on above: Performed By: #### 1 4601, [id number] #### [facility] [address] [facility] [place], [place] TOX SCREEN W/CONFIRM - OB/GY Non 09-13-2020 ALCOHOL - TOX W/ CONF Negative Normal Cutoff: 10 [facility] Comment on above: Order Comment: Scree n results are reported as positive (at or above the cutoff) or negative (below the cutoff).The GC/MS testing (if applicable) was developed and its performance characteristics determined by [facility] in a manner consistent with CLIA requirements. This test has not been cleared or approved by the U.S. Food and Drug Administration; however, the FDA has determined that such clearance or approval is not necessary. Performed By: #### C BDYFLD #### [facility] [address] [place] [address] [place], [place] AMPH CL Negative Normal Cutoff: 1000 [facility] Comment on above: Order Comment: Scree n results are reported as positive (at or above the cutoff) or negative (below the cutoff).The GC/MS testing (if applicable) was developed and its performance characteristics determined by [facility] in a manner consistent with CLIA requirements. This test has not been cleared or approved by the U.S. Food and Drug Administration; however, the FDA has determined that such clearance or approval is not necessary. Performed By: #### C BDYFLD #### [facility] [address] [facility] [place], [place] CRISTAL CL Negative Normal Cutoff: 200 [facility] Comment on above: Order Comment: Scree n results are reported as positive (at or above the cutoff) or negative (below the cutoff).The GC/MS testing (if applicable) was developed and its performance characteristics determined by [facility] in a manner consistent with CLIA requirements. This test has not been cleared or approved by the U.S. Food and Drug Administration; however, the FDA has determined that such clearance or approval is not necessary. Performed By: #### C BDYFLD #### [facility] [address] [facility] [place], [place] BENZO CL Negative Normal Cutoff: 200 [facility] Comment on above: Order Comment: Scree n results are reported as positive (at or above the cutoff) or negative (below the cutoff).The GC/MS testing (if applicable) was developed and its performance characteristics determined by [facility] in a manner consistent with CLIA requirements. This test has not been cleared or approved by the U.S. Food and Drug Administration; however, the FDA has determined that such clearance or approval is not necessary. Performed By: #### C BDYFLD #### [facility] [address] [facility] [place], [place] COCAINE CL- TOX W/ CONF Negative Normal Cutoff: 300 [facility] Comment on above: Order Comment: Scree n results are reported as positive (at or above the cutoff) or negative (below the cutoff).The GC/MS testing (if applicable) was developed and its performance characteristics determined by [facility] in a manner consistent with CLIA requirements. This test has not been cleared or approved by the U.S. Food and Drug Administration; however, the FDA has determined that such clearance or approval is not necessary. Performed By: #### C BDYFLD #### [facility] [address] [place], [place] FENTANYL Negative Normal Cutoff: 1 [facility] Comment on above: Order Comment: Scree n results are reported as positive (at or above the cutoff) or negative (below the cutoff).The GC/MS testing (if applicable) was developed and its performance characteristics determined by [facility] in a manner consistent with CLIA requirements. This test has not been cleared or approved by the U.S. Food and Drug Administration; however, the FDA has determined that such clearance or approval is not necessary. Performed By: #### C BDYFLD #### [facility] [address] [facility] [place], [place] METH CL Negative Normal Cutoff: 300 [facility] Comment on above: Order Comment: Scree n results are reported as positive (at or above the cutoff) or negative (below the cutoff).The GC/MS testing (if applicable) was developed and its performance characteristics determined by [facility] in a manner consistent with CLIA requirements. This test has not been cleared or approved by the U.S. Food and Drug Administration; however, the FDA has determined that such clearance or approval is not necessary. Performed By: #### C BDYFLD #### [facility] [address] [facility] [place], [place] OPI CL Negative Normal Cutoff: 300 [facility] Comment on above: Order Comment: Scree n results are reported as positive (at or above the cutoff) or negative (below the cutoff).The GC/MS testing (if applicable) was developed and its performance characteristics determined by [facility] in a manner consistent with CLIA requirements. This test has not been cleared or approved by the U.S. Food and Drug Administration; however, the FDA has determined that such clearance or approval is not necessary. Performed By: #### C BDYFLD #### [facility] [address] [facility] [place], [place] OXYCODONE Negative Normal Negative, In Process [facility] Comment on above: Order Comment: Scree n results are reported as positive (at or above the cutoff) or negative (below the cutoff).The GC/MS testing (if applicable) was developed and its performance characteristics determined by [facility] in a manner consistent with CLIA requirements. This test has not been cleared or approved by the U.S. Food and Drug Administration; however, the FDA has determined that such clearance or approval is not necessary. Result Comment: Oxyc odone and metabolites of Oxycodone (Oxymorphone, Noroxycodone, and Noroxymorphone) are measured/detected in this assay method. Performed By: #### C BDYFLD #### [facility] [address] [facility] [place], [place] PCP CL Negative Normal Cutoff: 25 [facility] Comment on above: Order Comment: Scree n results are reported as positive (at or above the cutoff) or negative (below the cutoff).The GC/MS testing (if applicable) was developed and its performance characteristics determined by [facility] in a manner consistent with CLIA requirements. This test has not been cleared or approved by the U.S. Food and Drug Administration; however, the FDA has determined that such clearance or approval is not necessary. Performed By: #### C BDYFLD #### [facility] [address] [place] [address] THC CL - TOX W/ CONF Negative Normal Cutoff: 50 [facility] Comment on above: Order Comment: Scree n results are reported as positive (at or above the cutoff) or negative (below the cutoff).The GC/MS testing (if applicable) was developed and its performance characteristics determined by [facility] in a manner consistent with CLIA requirements. This test has not been cleared or approved by the U.S. Food and Drug Administration; however, the FDA has determined that such clearance or approval is not necessary. Performed By: #### C BDYFLD #### [facility] [address] [place] [address] TOXOPLASMOSIS IGGon 09-13-19 21 TOXOPLASMOSIS IGG AB Negative Normal Negative [facility] Comment on above: Performed By: #### 1 4601, [id number] #### [facility] [address] [place] [address] TRIIODOTHYRONINE (T3)on 08-18 T3 140.9 ng/dL Normal 87.0-179.0 [facility] Comment on above: Performed By: #### L D, CH8 #### [facility] [address] [place] [address], TRIIODOTHYRONINE (T3), FREEo n 09-13-2020 FT3 3.0 pg/mL Normal 2.3-4.2 [facility] Comment on above: Performed By: #### C BDYFLD #### [facility] [address] [place] [address] TSHon 09-13-2020 TSH 1.638 uIU/mL Normal 0.450-5.330 [facility] Comment on above: Result Comment: Refe birgit range for women as applicable: First Trimester: 0. 050 to 3.700 uIU/mL Second Trimester: 0. 310 to 4.350 uIU/mL Third Trimester: 0. 410 to 5.180 uIU/mL Performed By: #### G MARGIE BF #### [facility] [address] [place], [place], TYPE AND SCREENon 09-13-2020 ABO and Rh group Nom (Bld) Blood group A Rh(D) positive Normal [facility] Comment on above: Performed By: #### 1 4601, [id number] #### [facility] [address] [facility] [place], [place] ABO and Rh group Nom (Bld) No Previous Results Normal [facility] Comment on above: Performed By: #### 1 4601, [id number] #### [facility] [address] [facility] [place], [place] ABSC INT Negative Normal [facility] Comment on above: Performed By: #### 1 4601, [id number] #### [facility] [address] [facility] [place], [place] URIC ACIDon 09-13-2020 Urate [Mass/Vol] 6.0 mg/dL Normal 2.0-7.3 [facility] Comment on above: Performed By: #### C BDYFLD #### [facility] [address] [facility] [place], [place] CULTURE FOR BETA-HEMOLYTIC S TREPon 09-03-2020 CULTURE FOR BETA-HEMOLYTIC STREP C STREP: Negative for beta-hemolytic Streptococci group B. Normal [facility] Comment on above: Performed By: #### G MARGIE BF #### [facility] [address] [place] [address], [facility] Screen on 11-14-2018 Cholesterol in HDL mass conc 57 mg/dL Normal 40-59 [facility] Comment on above: Result Comment: ATP III [...] CHD Performed By: #### B WW #### [facility] [address] [place] [id number] [phone] Cholesterol in LDL mass conc 108 mg/dL Normal 0-129 [facility] Comment on above: Result Comment: ATP III LDL Classification is Near Optimal. Performed By: #### B WW #### [facility] [address] [place] [address] Cholesterol mass conc 179 mg/dL Normal 0-199 [facility] Comment on above: Result Comment: ATP III Cholesterol classification is Desirable. Performed By: #### B WW #### [facility] [address] [place] [address] Triglyceride mass conc 72 mg/dL Normal 0-150 [facility] Comment on above: Result Comment: ATP III Triglycerides Classification is Normal. Effective: 08/23/2018 New reference range for this analyte has been established. Performed By: #### B WW #### [facility] [address] [place] [address] Glucose mass conc 83 mg/dL Normal 70-99 [facility] Comment on above: Result Comment: Effe ctive: 08/23/2018 New reference range for this analyte has been established. Performed By: #### B WW #### [facility] [address] [address] EVENT MONITORon 08-03-2018 EVENT MONITOR [place] [id number] EVENT MONITOR PATIENT NAME: KAVON RUBY : 1990 MED REC NO: [id number] ROOM: ACCOUNT NO: [id number] ADMIT DATE: 06/28/2018 PROVIDER: Erma Arias NAME OF TEST: A 30-DAY EVENT RECORDER. [...] at 30 mg twice a day. ERMA GINGER [id number] Doc#: [id number] CC: Jenna Bansal Normal [facility] CBC with Diffon 06-09-2018 Morphology Interp Cody (Bld) FEW Normal [facility] Comment on above: Result Comment: LARG E PLATELETS OCCASIONAL GIANT PLATELETS Performed By: #### Z FAST, CP, LIPR, MG, TSHX, VD25, CDP #### [facility] [address] [place] [address] Abs. Basophil 0.00 k/uL Normal 0.0-0.2 [facility] Comment on above: Performed By: #### Zuly FAST, CP, LIPR, MG, TSHX, VD25, CDP #### [facility] [address] [place] [address] Abs.Neutrophil (Seg) 4.90 k/uL Normal 2.5-7.0 [facility] Comment on above: Performed By: #### Zuly FAST, CP, LIPR, MG, TSHX, VD25, CDP #### [facility] [address] [place] [address] Basophils/100 WBC (Bld) 0 % Normal 0-2 [facility] Comment on above: Performed By: #### Z FAST, CP, LIPR, MG, TSHX, VD25, CDP #### [facility] [address] [place] [address] Eosinophils #/vol (Bld) 0.10 10*3/uL Normal 0.0-0.4 [facility] Comment on above: Performed By: #### Zuly FAST, CP, LIPR, MG, TSHX, VD25, CDP #### [facility] [address] [facility] [place] [address] Eosinophils/100 WBC (Bld) 1 % Normal 0-5 [facility] Comment on above: Performed By: #### Zuly FAST, CP, LIPR, MG, TSHX, VD25, CDP #### [facility] [address] [facility] [place] [address] Erythrocyte distribution width Ratio (RBC) 16.3 % High 12.1-15.2 [facility] Comment on above: Performed By: #### Zuly FAST, CP, LIPR, MG, TSHX, VD25, CDP #### [facility] [address] [facility] [place] [address] Hematocrit Volume Fraction (Bld) 36.4 % Normal 36-46 [facility] Comment on above: Performed By: #### Zuly FAST, CP, LIPR, MG, TSHX, VD25, CDP #### [facility] [address] [facility] [place] [address] Hemoglobin mass conc (Bld) 11.7 g/dL Low 12.0-16.0 [facility] Comment on above: Performed By: #### Zuly FAST, CP, LIPR, MG, TSHX, VD25, CDP #### [facility] [address] [facility] [place] [address] Lymphocytes #/vol (Bld) 3.30 10*3/uL Normal 1.0-4.8 [facility] Comment on above: Performed By: #### Z FAST, CP, LIPR, MG, TSHX, VD25, CDP #### [facility] [address] [facility] [place] [address] Lymphocytes/100 WBC (Bld) 38 % Normal 15-40 [facility] Comment on above: Performed By: #### Zuly FAST, CP, LIPR, MG, TSHX, VD25, CDP #### [facility] [address] [facility] [place] [address] MCH Entitic mass (RBC) 24.3 pg Low 26-34 [facility] Comment on above: Performed By: #### Zuly FAST, CP, LIPR, MG, TSHX, VD25, CDP #### [facility] [address] [facility] [place] [address] MCHC mass conc (RBC) 32.1 g/dL Normal 31-37 [facility] Comment on above: Performed By: #### Zuly FAST, CP, LIPR, MG, TSHX, VD25, CDP #### [facility] [address] [facility] [place] [address] MCV Entitic volume (RBC) 75.6 fL Low 80-100 [facility] Comment on above: Performed By: #### Zuly FAST, CP, LIPR, MG, TSHX, VD25, CDP #### [facility] [address] [place] [address] Monocytes #/vol (Bld) 0.40 10*3/uL Normal 0.0-1.0 [facility] Comment on above: Performed By: #### Zuly FAST, CP, LIPR, MG, TSHX, VD25, CDP #### [facility] [address] [place] [address] Monocytes/100 WBC (Bld) 4 % Normal 4-8 [facility] Comment on above: Performed By: #### Zuly FAST, CP, LIPR, MG, TSHX, VD25, CDP #### [facility] [address] [place] [address] Neutrophil (Seg) 57 % Normal 47-75 [facility] Comment on above: Performed By: #### Zuly FAST, CP, LIPR, MG, TSHX, VD25, CDP #### [facility] [address] [place] [address] Platelets #/vol (Bld) 194 10*3/uL Normal 140-450 [facility] Comment on above: Performed By: #### Z FAST, CP, LIPR, MG, TSHX, VD25, CDP #### [facility] [address] [place] [address] RBC #/vol (Bld) 4.82 10*6/uL Normal 4.0-5.2 [facility] Comment on above: Performed By: #### Z FAST, CP, LIPR, MG, TSHX, VD25, CDP #### [place] [address] WBC #/vol (Bld) 8.7 10*3/uL Normal 3.5-11.0 [facility] Comment on above: Performed By: #### Zuly FAST, CP, LIPR, MG, TSHX, VD25, CDP #### [place] [address] Abs.Imm.Granulocyt e NOT REPORTED Normal 0.00-0.30 [facility] Comment on above: Performed By: #### Zuly FAST, CP, LIPR, MG, TSHX, VD25, CDP #### [place] [address] Auto Diff Performed NOT REPORTED Normal [facility] Comment on above: Performed By: #### Zuly FAST, CP, LIPR, MG, TSHX, VD25, CDP #### [place] [address] Immature granulocytes #/vol (Bld) NOT REPORTED Normal 0 [facility] Comment on above: Performed By: #### Zuly FAST, CP, LIPR, MG, TSHX, VD25, CDP #### [place] [address] NRBC Automated NOT REPORTED Normal [facility] Comment on above: Performed By: #### Zuly FAST, CP, LIPR, MG, TSHX, VD25, CDP #### [address] [place] [address] Platelet mean volume Entitic volume (Bld) NOT REPORTED Normal 6.0-12.0 [facility] Comment on above: Performed By: #### Z FAST, CP, LIPR, MG, TSHX, VD25, CDP #### [facility] [address] [facility] [place] [address] Platelets #/vol (Bld) NOT REPORTED Normal [facility] Comment on above: Performed By: #### Z FAST, CP, LIPR, MG, TSHX, VD25, CDP #### [facility] [address] [facility] [place] [address] RBC morphology finding Nom (Bld) NOT REPORTED Normal [facility] Comment on above: Performed By: #### Z FAST, CP, LIPR, MG, TSHX, VD25, CDP #### [facility] [address] [facility] [place] [address] WBC Morphology NOT REPORTED Normal [facility] Comment on above: Performed By: #### Z FAST, CP, LIPR, MG, TSHX, VD25, CDP #### [facility] [address] [facility] [place] [address] ([phone] Comp Metabolic Profon 2017 (cont.) Normal [facility] Comment on above: Result Comment: Aver age GFR for 20-29 years old: 116 mL/min/1.73sq m Chronic Kidney Disease: <60 mL/min/1.73sq m Kidney failure: <15 mL/min/1.73sq m eGFR calculated using average adult body mass. Additional eGFR calculator available at: http://www.[employer].com/multiple_crcl_2012.htm Performed By: #### Z FAST, CP, LIPR, MG, TSHX, VD25, CDP #### [facility] [address] [facility] [place] [address] ([phone] Albumin mass conc 4.3 g/dL Normal 3.5-5.2 [facility] Comment on above: Performed By: #### Z FAST, CP, LIPR, MG, TSHX, VD25, CDP #### [facility] [address] [facility] [place] [address] Alkaline Phos 77 U/L Normal 35-104 [facility] Comment on above: Performed By: #### Z FAST, CP, LIPR, MG, TSHX, VD25, CDP #### [facility] [address] [facility] [place] [address] ALT enzyme act/vol 28 U/L Normal 5-33 [facility] Comment on above: Performed By: #### Z FAST, CP, LIPR, MG, TSHX, VD25, CDP #### [facility] [address] [place] [address] Anion gap molar conc 11 mmol/L Normal 9-17 [facility] Comment on above: Performed By: #### Zuly FAST, CP, LIPR, MG, TSHX, VD25, CDP #### [facility] [address] [place] [address] AST enzyme act/vol 25 U/L Normal <32 [facility] Comment on above: Performed By: #### Z FAST, CP, LIPR, MG, TSHX, VD25, CDP #### [facility] [address] [place] [address] Bilirubin Ql (U) 0.30 mg/dL Normal 0.30-1.20 [facility] Comment on above: Performed By: #### Z FAST, CP, LIPR, MG, TSHX, VD25, CDP #### [facility] [address] [place] [address] BUN/CRE Ratio 27 High 9-20 [facility] Comment on above: Performed By: #### Z FAST, CP, LIPR, MG, TSHX, VD25, CDP #### [facility] [address] [place] [address] Calcium mass conc 9.2 mg/dL Normal 8.6-10.4 [facility] Comment on above: Performed By: #### Z FAST, CP, LIPR, MG, TSHX, VD25, CDP #### [facility] [address] [facility] [place] [address] Chloride molar conc 102 mmol/L Normal 98-107 [facility] Comment on above: Performed By: #### Z FAST, CP, LIPR, MG, TSHX, VD25, CDP #### [facility] [address] [facility] [place] [address] CO2 molar conc 27 mmol/L Normal 20-31 [facility] Comment on above: Performed By: #### Z FAST, CP, LIPR, MG, TSHX, VD25, CDP #### [facility] [address] [facility] [place] [id number] Creatinine mass conc 0.45 mg/dL Low 0.50-0.90 [facility] Comment on above: Performed By: #### Z FAST, CP, LIPR, MG, TSHX, VD25, CDP #### [facility] [address] [facility] [place] [address] GFR, Amer >60 Normal >60 [facility] Comment on above: Performed By: #### Zuly FAST, CP, LIPR, MG, TSHX, VD25, CDP #### [facility] [address] [facility] [place] [address] GFR,non Amer >60 Normal >60 [facility] Comment on above: Performed By: #### Z FAST, CP, LIPR, MG, TSHX, VD25, CDP #### [facility] [address] [facility] [place] [address] Glucose mass conc 80 mg/dL Normal 70-99 [facility] Comment on above: Performed By: #### Z FAST, CP, LIPR, MG, TSHX, VD25, CDP #### [facility] [address] [facility] [place] [address] Potassium molar conc 4.1 mmol/L Normal 3.7-5.3 [facility] Comment on above: Performed By: #### Z FAST, CP, LIPR, MG, TSHX, VD25, CDP #### [facility] [address] [facility] [place] [id number] Protein mass conc 8.1 g/dL Normal 6.4-8.3 [facility] Comment on above: Performed By: #### Z FAST, CP, LIPR, MG, TSHX, VD25, CDP #### [facility] [address] [facility] [place] [address] Sodium molar conc 140 mmol/L Normal 135-144 [facility] Comment on above: Performed By: #### Z FAST, CP, LIPR, MG, TSHX, VD25, CDP #### [facility] [address] [facility] [place] [address] Urea nitrogen mass conc 12 mg/dL Normal 6-20 [facility] Comment on above: Performed By: #### Z FAST, CP, LIPR, MG, TSHX, VD25, CDP #### [facility] [address] [facility] [place] [address] Albumin/Globulin mass ratio NOT REPORTED Normal 1.0-2.5 [facility] Comment on above: Performed By: #### Z FAST, CP, LIPR, MG, TSHX, VD25, CDP #### [facility] [address] [place] [address] Staging: NOT REPORTED Normal [facility] Comment on above: Performed By: #### Z FAST, CP, LIPR, MG, TSHX, VD25, CDP #### [facility] [address] [place] [id number] Lipid Profileon 06-09-2018 Cholesterol in HDL mass conc 66 mg/dL Normal >40 [facility] Comment on above: Result Comment: HDL Guidelines: <40 Undesirable 40-59 Borderline >59 Desirable Performed By: #### Z FAST, CP, LIPR, MG, TSHX, VD25, CDP #### [facility] [address] [place] [address] Cholesterol in LDL mass conc 133 mg/dL High 0-130 [facility] Comment on above: Result Comment: LDL Guidelines: <100 Desirable 100-129 Near to/above Desirable 130-159 Borderline >159 Undesirable Direct (measured) LDL and calculated LDL are not interchangeable tests. Performed By: #### Z FAST, CP, LIPR, MG, TSHX, VD25, CDP #### [facility] [address] [place] [id number] Cholesterol mass conc 217 mg/dL High <200 [facility] Comment on above: Result Comment: Cholesterol Guidelines: <200 Desirable 200-240 Borderline >240 Undesirable Performed By: #### Z FAST, CP, LIPR, MG, TSHX, VD25, CDP #### [facility] [address] [place] [address] Cholesterol.total/ Cholesterol in HDL mass ratio 3.3 {ratio} Normal <5 [facility] Comment on above: Performed By: #### Z FAST, CP, LIPR, MG, TSHX, VD25, CDP #### [facility] [address] [place] [address] Triglyceride mass conc 91 mg/dL Normal <150 [facility] Comment on above: Result Comment: Triglyceride Guidelines: <150 Desirable 150-199 Borderline 200-499 High >499 Very high Based on AHA Guidelines for fasting triglyceride, April 2012. Performed By: #### Z FAST, CP, LIPR, MG, TSHX, VD25, CDP #### [facility] [address] [place] [address] Cholesterol in VLDL mass conc NOT REPORTED Normal 1-30 [facility] Comment on above: Performed By: #### Z FAST, CP, LIPR, MG, TSHX, VD25, CDP #### [facility] [address] [place] [address] [phone] Magnesiumon 06-09-2018 Magnesium mass conc 2.3 mg/dL Normal 1.6-2.6 [facility] Comment on above: Performed By: #### Z FAST, CP, LIPR, MG, TSHX, VD25, CDP #### [facility] [address] [place] [address] [phone] Patient fasting?on 8 Patient fasting? YES Normal [facility] Comment on above: Performed By: #### Z FAST, CP, LIPR, MG, TSHX, VD25, CDP #### [facility] [address] [place] [address] [phone] TSH w/reflex to FT4on 2017 Thyrotropin Qn 1.44 m[IU]/L Normal 0.30-5.00 [facility] Comment on above: Performed By: #### Z FAST, CP, LIPR, MG, TSHX, VD25, CDP #### [facility] [address] [place] [address] ([phone] Vitamin D 25 OHon 06-09-2018 Vitamin D 25 [place] 13.1 ng/mL Low 30.0-100.[address] [facility] Comment on above: Result Comment: Reference Range: Vitamin D status Range Deficiency <20 ng/mL Mild Deficiency 20-30 ng/mL Sufficiency 30-100 ng/mL Toxicity >100 ng/mL Performed By: #### Z FAST, CP, LIPR, MG, TSHX, VD25, CDP #### [facility] [address] [place] [address] [phone] XR CHEST (2 VW)on 06-09-2018 XR CHEST (2 VW) TWO-VIEW CHEST REASON FOR STUDY: Tachycardia. COMPARISON: None. REPORT: Trachea, mediastinum, heart size, diaphragm, and bony elements are intact. No effusion or nodule or pneumothorax is noted. The diaphragm and bony elements are unremarkable. IMPRESSION: Nonacute two-view chest. Interpreted by: Sourav Parisi DO Signed by: Sourav Parisi DO 06/09/18 Final result Normal [facility] Vital Signs Date Time Vital Sign Value Performing Clinician Facility 03-21-2024 11:37-0400 Body mass index (BMI) [Ratio] 45.12 kg/m2 Luis Doug DO Work Phone: [facility] 03-21-2024 11:37-0400 Body weight 122.98 kg Luis Doug DO Work Phone: [facility] 03-21-2024 11:37-0400 Diastolic blood pressure 70 mm[Hg] Luis Doug DO Work Phone: [facility] 03-21-2024 11:37-0400 Systolic blood pressure 122 mm[Hg] Luis Doug DO Work Phone: [facility] 07-06-2023 16:25-0500 Body height 163.83 cm Alanis [facility] Other [place] Other 07-06-2023 16:25-0500 Body mass index (BMI) [Ratio] 37.85 kg/m2 Alanis [employer] Other [place] Other 07-06-2023 16:25-0500 Body temperature 100 [degF] Alanis Zaidi Other [place] Other 07-06-2023 16:25-0500 Body weight 101.61 kg Alanis Zaidi Other [place] Other 07-06-2023 16:25-0500 Respiratory rate 18 /min Alanis Zaidi Other [place] Other 07-06-2023 16:25-0500 SaO2% (BldA) [Mass fraction] 99 % Alanis Zaidi Other [place] Other 10-08-2022 03:06-0400 Body weight 125.6472 kg LUIS DOUG [facility] Comment on above: Performed By: #### CBC #### [facility] [address] [place] [address] [address] Brenna Mann Encounters Encounter Date Encounter Type Care Provider Facility Start: 11-25-2024 End: 11-25-2024 Bamboo flowsheet Luis Doug DO Work Phone: [facility] Start: 11-25-2024 End: 11-25-2024 Bamboo flowsheet Luis Doug DO Work Phone: [facility] Start: 03-21-2024 End: 03-21-2024 Bamboo flowsheet Luis Doug DO Work Phone: [facility] Start: 03-21-2024 End: 03-21-2024 Bamboo flowsheet Luis Doug DO Work Phone: [facility] Start: 03-21-2024 End: 03-21-2024 Office outpatient visit 15 minutes Luis Doug DO Work Phone: [facility] Comment on above: PMDD (premenstrual d ysphoric disorder) ([facility]) Start: 03-21-2024 End: 03-21-2024 ambulatory LUIS DOUG Not Available Start: 11-22-2023 End: 11-22-2023 ambulatory LUIS DOUG Not Available Start: 11-08-2023 End: 11-08-2023 ambulatory LUIS DOUG Not Available Start: 08-20-2023 Letter encounter Nabor payan DO Work Phone: [facility] Start: 07-06-2023 End: 07-06-2023 ambulatory Jenna Bansal Facility:[facility] Start: 07-06-2023 End: 07-06-2023 Patient encounter procedure KOTA Bansal Work Phone: [facility] Work Phone: Start: 07-06-2023 End: 07-06-2023 ambulatory KOTA Bansal Work Phone: [facility] Work Phone: Start: 07-06-2023 Office outpatient ne w 20 minutes Alanis Zaidi [facility] Start: 12-24-2022 End: 12-24-2022 ambulatory Jenna Bansal Facility:[facility] Start: 10-26-2022 End: 10-27-2022 [facility]ulatory [facility] Start: 10-26-2022 End: 10-26-2022 Subsequent hospital visit by physician Jenna Bansal Work Phone: [facility] Start: 10-06-2022 End: 10-07-2022 ambulatory LUIS DOUG Facility:[facility] Start: 10-06-2022 End: 10-07-2022 ambulatory LUIS CAMACHO Facility:[facility] Start: 09-14-2022 End: 09-15-[address] JR RITCHIE Facility:[facility] Start: 09-10-2022 End: 09-11-2022 ambulatory LUIS DOUG Facility:[facility] Start: 08-29-2022 End: 08-30-[address] [...] medical examination without abnormal findings DR CHRISTOPHER RAMSEY . [facility] Start: 02-26-2022 End: 02-27-[address] CHRISTOPHER RAMSEY . Facility:[facility] Start: 02-26-2022 End: 02-27-2022 Encounter for general adult medical examination without abnormal findings DR CHRISTOPHER RAMSEY . Facility: Start: 02-22-2022 End: 02-23-2022 ambulatory REFERRED SELF Facility:[email or web address] Start: 09-13-2020 End: 09-15-2020 Evaluation and management of inpatient JENNA HICKEY Facility:[facility] Start: 09-04-2020 End: 09-10-2020 ambulatory UNKNOWN PROVIDER Facility:[facility] Start: 09-03-2020 End: 09-03-2020 ambulatory NABOR MARROQUIN Facility:[facility] Start: 12-05-2018 ambulatory Facility:C [id number] Start: 11-26-2018 End: 11-27-2018 Patient encounter procedure [facility] Start: 06-28-2018 End: 06-29-2018 Patient encounter procedure [facility] Start: 06-09-2018 End: 06-12-2018 Patient encounter procedure [facility] Start: 06-27-2016 End: 06-27-2016 Telephone encounter Ba Tellez MD Work Phone: [facility] Comment on above: Results Procedures Date Procedure Procedure Detail Performing Clinician Start: 07-06-2023 X-ray of left ankle PA-C Jenna Bansal Work Phone: Start: 10-26-2022 Assay of homocysteine Homer Ramos MD Work Phone: Start: 07-04-2022 Microscopic observation [Identifier] in Cervix by Cyto stain Lusi Camacho DO Work Phone: Start: 09-15-2020 H/O: section S/P section Nabor Garcia O Work Phone: Start: 11-26-2018 Ecg routine ecg w/least 12 lds w/i&r [facility] Start: 06-28-2018 Rem interrog pm/ldls pm <90 d phys/qhp [facility] Start: 06-28-2018 Echo tthrc r-t 2d w/wom-mode compl spec&colr d [facility] Start: 06-09-2018 EKG 12-LEAD [facility] Start: 06-09-2018 Radiologic exam chest 2 views [facility] Start: 06-09-2018 Assay of magnesium [facility] Start: 06-09-2018 Blood count complete auto&auto difrntl wbc [facility] Start: 06-09-2018 Blood typing serologic abo [facility] Start: 06-09-2018 Comprehensive metabolic panel [facility] Start: 06-09-2018 Lipid panel [facility] Start: 06-09-2018 TSH WITH REFLEX [facility] Start: 06-09-2018 VITAMIN D 25 HYDROXY [facility] Start: 01-11-2018 H/O: section Previous delivery, antepartum condition or complication Jenna Bansal Work Phone: Plan of Treatment Date Care Activity Detail Author Start: 2038 Shingles (RZV) Vacci ne (1 of 2) Shingles (RZV) Vaccine (1 of 2) [facility] Start: 03-01-2032 DTaP/Tdap/Td vaccine (2 - Td or Tdap) DTaP/Tdap/Td vaccine (2 - Td or Tdap) [facility] Start: 03-01-2032 Tetanus vaccination Tetanus (T d or Tdap) Booster [facility] Start: 07-04-2027 Screening for malign ant neoplasm of cervix [facility] Start: 03-17-2025 Influenza vaccination Influenz a Vaccine (Season Ended) [facility] Start: 11-25-2024 End: 11-25-2024 Patient encounter procedure [facility] Comment on above: Arrived Start: 03-21-2024 End: 03-21-2024 Patient encounter procedure 03/21/2024 10:50 AM EDT Office Visit [facility] [address] [place] [address] Luis Camacho, [address] [place] [address] Arrived [facility] Comment on above: Arrived Start: 03-17-2024 Influenza vaccination Influenza Vacc ine (#1) [facility] Start: 03-17-2023 COVID-19 Vaccine ( season) COVID-19 Vaccine ( season) [facility] Start: 03-17-2023 Influenza vaccination Influenza Vacc ine (#1) [facility] Start: 11-16-2022 End: 11-16-2022 Patient encounter procedure 11/16/2022 Routine Perinatology [facility] Start: 09-01-2022 Hepatitis B vaccination Hepati tis B (HBV) Vaccine (3 of 3 - 19+ 3-dose series) [facility] Start: 05-12-2021 COVID-19 Vaccine (3 - Booster for Pfizer series) COVID-19 Vaccine (3 - Booster for Pfizer series) [facility] [place] Start: 03-17-2021 Influenza vaccination INFLUENZ A (Season Ended) [facility] Start: 2018 HPV TESTING HPV TESTING [facility] Start: 2018 Screening for malign ant neoplasm [facility]ix [facility] Start: 2009 PAP TESTING PAP TESTING [facility] Start: 2009 Screening for malign ant neoplasm of cervix Pap smear [facility] [place] Start: 11-12-2007 Urine microalbumin profile DTAP,TDAP,TD (1 - Tdap) [facility] Start: 2006 HEPATITIS C SCREENING [facility]ITIS C [facility] Start: 2006 Hepatitis C screening Hepatitis C [facility] [place] Start: 2006 HIV SCREENING HIV SCREENING [facility] Start: 11-12-2003 HIV screening HIV screen [facility] [employer] Start: 2000 Adult depression screening assessment DEPRESSION SCREENING [facility] Start: 2000 Depression Screen Depression Screen [facility] [place] Start: 1989 Varicella vaccine (1 of 2 - 2-dose childhood series) Varicella vaccine (1 of 2 - 2-dose childhood series) [employer] End: 10-26-2022 Alpha Fetoprotein, Maternal [employer] [facility] Work Phone: Comment on above: Once for 1 Occurrenc es starting 10/26/2022 until 10/26/2022 End: 10-26-2022 Antithrombin 3 Activity [employer] Phone: Comment on above: Once for 1 Occurrenc es starting 10/26/2022 until 10/26/2022 End: 10-26-2022 Factor 5 [employer] Phone: Comment on above: Once for 1 Occurrenc es starting 10/26/2022 until 10/26/2022 Lupus Anticoagulant Lupus Antico agulant Lab Routine 10/26/2022 5:16 PM EDT [employer] Work Phone: End: 10-26-2022 MTHFR mutation [employer] Phone: Comment on above: Once for 1 Occurrenc es starting 10/26/2022 until 10/26/2022 End: 10-26-2022 Protein C Functional [employer] Phone: Comment on above: Once for 1 Occurrenc es starting 10/26/2022 until 10/26/2022 End: 10-26-2022 Protein S Activity [employer] Phone: Comment on above: Once for 1 Occurrenc es starting 10/26/2022 until 10/26/2022 End: 10-26-2022 Reflex Order [employer] Phone: Comment on above: Once for 1 Occurrenc es starting 10/26/2022 until 10/26/2022 Immunizations Immunization Date Immunization Notes Care Provider [facility] 04-01-2022 hepatitis B vaccine, adult dosage Nabor Stetzer DO Work Phone: [facility] 04-01-2022 Influenza, injectabl e, Madin [place] Canine Kidney, preservative free, quadrivalent Nabor Noyolaer DO Work Phone: [facility] 04-01-2022 influenza virus vacc ine, unspecified formulation Nabor Noyolaer DO Work Phone: [facility] 03-01-2022 hepatitis B vaccine, adult dosage Nabor Stetzer DO Work Phone: [facility] 03-01-2022 measles, mumps and r ubella virus vaccine Nabor Stetzer DO Work Phone: [facility] 03-01-2022 tetanus toxoid, redu chalino diphtheria toxoid, and acellular pertussis vaccine, adsorbed Nabor Stetzer DO Work Phone: [facility] 04-16-2017 influenza, injectabl e, quadrivalent, preservative free Nabor Stetzer DO Work Phone: [facility] 02-11-2013 HPV, unspecified formulation Nabor Stetzer DO Work Phone: [facility] 10-15-2012 HPV, unspecified formulation Nabor Stetzer DO Work Phone: [facility] 08-13-2012 HPV, unspecified formulation Nabor Stetzer DO Work Phone: [facility] Payers Date Payer Category Payer Private Health Insurance [facility] [employer], [employer] [id number] 2019 Unknown [id number] 2018 Medicaid [employer] MEDICAID HMO [id number] 2018-Present [phone] [address] [place] [address] Medicaid HMO [id number] 2017 Unknown [id number] 2016 Medicaid MEDICAID [facility] MEDICAID [id number] 2016-Present Medicaid [id number] 2015 Unknown HOSPITAL/MEDICAL GENERIC MEDICAL GENERIC [id number] 2015-Present Indemnity [id number]. [id number] 2015 Unknown [id number] 1988 Unknown [id number] 2.16.840.1.891478.3.579.2. 174 1988 Unknown [id number] 2.16.840.1.582899.3.579.2. 174 1988 Unknown [id number] 2.16840.1.777712.3.579.2. 174 1988 Unknown [id number] 2.16.840.1.679008.3.579.2. 174 1988 Unknown [id number] 2.16.840.1.936815.3.579.2. 174 1988 Unknown [id number] 2.16.840.1.432678.3.579.2. 174 1988 Unknown [id number] 2.16.840.1.691247.3.579.2. 174 1988 Unknown [id number] 2.16.840.1.002201.3.579.2. 732 1988 Unknown [id number] 2.16.840.1.770657.3.579.2. 732 1988 Unknown [id number] 2.16.840.1.197102.3.579.2. 732 1988 Unknown [id number] 2.16.840.1.447294.3.579.2. 732 1988 Unknown [id number] 2.16.840.1.436995.3.579.2. 647 1988 Unknown [id number] 2.16.840.1.558277.3.579.2. 593 1988 Unknown [id number] 2.16.840.1.631866.3.579.2. 593 1988 Unknown [id number] 2.16.840.1.738531.3.579.2. 593 1988 Unknown [id number] 2.16.840.1.179628.3.579.2. 593 1988 Unknown [id number] 2.16.840.1.039114.3.579.2. 593 1988 Unknown [id number] 2.16.840.1.064597.3.579.2. 593 1988 Unknown [id number] 2.16.840.1.507767.3.579.2. 593 1988 Unknown [id number] 2.16.840.1.777887.3.579.2. 593 1988 Unknown [id number] 2.16.840.1.031415.3.579.2. 593 1988 Unknown [id number] 2.16.840.1.230575.3.579.2. 593 1988 Unknown [id number] 2.16.840.1.033177.3.579.2. 593 1988 Unknown [id number] 2.16.840.1.782695.3.579.2. 727 1988 Unknown [id number] 2.16.840.1.860361.3.579.2. 175 1988 Unknown [id number] 2.16.840.1.654137.3.579.2. 1259 1988 Unknown [id number] 2.16.840.1.370187.3.579.2. 1259 1988 Unknown [id number] 2.16.840.1.443548.3.579.2. 1259 1959 Self-pay 1959 Unknown [id number] 1959 Unknown [id number] 1959 Unknown [id number] Unknown [id number] 2.16.840.1.448166.3.579.2. 593 Unknown Regular Insurance [id number] Unknown [id number] 2.16.840.1.124776.3.579.2. 531 Unknown [id number] 2.16.840.1.126725.3.579.2. 531 Social History Date Type Detail Facility Start: 06-16-2016 End: 01-02-2023 Tobacco smoking status [facility] Never smoker [facility] Start: 06-16-2016 End: 10-26-2022 Alcohol intake Current non-drinker of alcohol (finding) [facility] Start: 1990 Sex Assigned At Not on file C [facility] Start: 10-26-2022 End: 01-02-2023 Tobacco use and exposure Smokeless tobacco non-user [employer] Phone: Start: 07-02-2022 [employer] Phone: Start: 1988 Sex Assigned At Female F [facility] Start: 04-04-2023 End: 11-08-2023 Sex Assigned At [facility] [employer] Other Tobacco smoking status [facility] Tobacco smoking consumption unknown [facility] Start: 11-22-2023 End: 03-21-2024 Alcoholic beverage intake Lifetime non-drinker (finding) [facility] Start: 04-04-2023 End: 11-08-2023 History of Social function [facility] Start: 01-23-2023 Alcohol Comment caffeine: none [facility] Goals Date Patient Goal Desired Activity /State Personal health goal History of Present illness Narrative 03-21-2024 Alaina Grewal LPN - 03/21/2024 10:50 AM EDT Note Date & Type Note Facility 03-21-2024 History of Presen t illness Narrative Reason for Appointment: Patient ID: Kavon Chao is a 33 y.o. female who presents for PMDD issues Patient presents today for Consult appointment. MEDICATIONS Current Outpatient Medications Medication Instructions desogestrel-ethinyl estradiol (Apri) 0.15-30 MG-MCG tablet 1 tablet, Oral, Daily, Take 1 tablet by mouth daily magnesium oxide (Mag-Ox) 400 MG tablet TAKE 1 TABLET BY MOUTH EVERY DAY NEEDED FOR 30 DAYS Pediatric Multiple Vitamins (FLINSTONES GUMMIES OMEGA-3 DHA PO) Oral Semaglutide-Weight Management 1.7 MG/0.75ML solution auto-injector 0.5 mL Subcutaneous Once Weekly for 30 days ALLERGIES Allergies Allergen Reactions Wound Dressing Adhesive Hives, Rash and Unknown And welts Bandaide-hives/burning Other Reaction(s): Not available PROBLEMS Active Ambulatory Problems Diagnosis Date Noted Axillary lump, right 01/24/2023 Clotting disorder ([facility]) 01/24/2023 Dyssomnia 01/24/2023 ventricular septal defect affecting antepartum care of mother 01/11/2018 Ganglion of left hand 02/07/2022 H/O macrosomia in infant in prior , currently , third trimester 01/11/2018 History of IUFD 01/24/2023 Intrauterine affecting management of mother 09/13/2020 Other antepartum hemorrhage, first trimester 01/24/2023 Other specified disorders of amniotic fluid and membranes, second trimester, not applicable or unspecified 01/24/2023 Pain and tenderness 01/24/2023 Pain in female pelvis 01/24/2023 Previous delivery, antepartum condition or complication 01/11/2018 Suspected anomaly not found 01/11/2018 SVT (supraventricular tachycardia) ([facility]) 06/22/2018 Resolved Ambulatory Problems Diagnosis Date Noted No Resolved Ambulatory Problems Past Medical History: Diagnosis Date Depression ([facility]) Encounter for fertility planning Female pelvic pain demise, greater than 22 weeks, antepartum, fetus 1 Fibroid uterus Inability to sleep Miscarriage Obesity (BMI 30-39.9) 2010 Varicella zoster [place] teeth removed HISTORY PAST MEDICAL HISTORY SOCIAL HISTORY Past Medical History: Diagnosis Date Axillary lump, right Clotting disorder (CMS/HCC) Depression (CMS/HCC) Post traumatic Stress Encounter for fertility planning Female pelvic pain demise, greater than 22 weeks, antepartum, fetus 1 Fibroid uterus Inability to sleep Miscarriage Obesity (BMI 30-39.9) Pain and tenderness 2010 Varicella zoster [place] teeth removed Social History Tobacco Use Smoking status: Never Smokeless tobacco: Never Substance Use Topics Alcohol use: Never Comment: caffeine: none Drug use: Never FAMILY HISTORY Family History Problem Relation Name Age of Onset Diabetes Mother Nephrolithiasis Mother Hypertension Father No Known Problems Brother 2 No Known Problems Daughter No Known Problems Son Skin cancer Father's Sister Heart failure Maternal Grandmother Cancer Maternal Grandfather lung Heart attack Paternal Grandmother Heart attack Paternal Grandfather SURGICAL HISTORY Past Surgical History: Procedure Laterality Date SECTION, LOW TRANSVERSE X4 SECTION, LOW TRANSVERSE 02/21/2023 PA MEDICATION MANAGEMENT Lexapro 10mg one daily has stopped ; Post traumatic Stress Depression WISDOM TOOTH EXTRACTION wisdom teeth REVIEW OF SYSTEMS Review of Systems: Review of Systems All other systems reviewed and are negative. OBJECTIVE Objective: Physical Exam Constitutional: Appearance: Normal appearance. She is well-developed. Cardiovascular: Rate and Rhythm: Normal rate and regular rhythm. Pulmonary: Effort: Pulmonary effort is normal. Breath sounds: Normal breath sounds. Abdominal: General: Bowel sounds are normal. There is no distension. Palpations: Abdomen is soft. Tenderness: There is no abdominal tenderness. There is no guarding or rebound. Musculoskeletal: General: No swelling. Normal range of motion. Right lower leg: No edema. Left lower leg: No edema. Neurological: Mental Status: She is alert and oriented to person, place, and time. Skin: General: Skin is warm and dry. Psychiatric: Mood and Affect: Mood normal. Behavior: Behavior normal. Vitals and nursing note reviewed. Exam conducted with a commutator inspector present. Vitals: Estimated body mass index is 45.12 kg/m as calculated from the following: Height as of 11/22/23: 5' 5 . Weight as of this encounter: 271 lb 1.9 oz. BP: 122/70 No LMP recorded. ASSESSMENT & PLAN ICD-10-CM 1. PMDD (premenstrual dysphoric disorder) ([facility]) F32.81 desogestrel-ethinyl estradiol (Apri) 0.15-30 MG-MCG tablet Patient presents today to discuss PMDD. Patient voiced that every month she gets very anxious followed by a bout of depression. Patient voiced this goes on until she actually starts her cycle. Patient wanted to discuss her options. Patient was advised that she could start on Apri (OCP) to help regulate her hormones. Discussed with patient starting Effexor and seeing if that helps with moods. At this time patient desires to start Apri for hormonal management symptoms and patient will consider Effexor and will reach out to office if she desires to start medication. Patient uses [facility] [place]. Patient to return to clinic for annual appointment and PRN. Documented by Alaina Grewal LPN on behalf of: Luis Camacho DO documented in this encounter [facility] Evaluation note 07-06-2023 Note Date & Type [...] understanding and is agreeable to treatment plan [facility] Clinical Note 08-21-2022 Note Date & [...] by: JUNE AC Date: 2022-08-21 18:04 [facility] Clinical Note 11-17-2020 Note Date & Type Note Facility 11-17-2020 Note Outreach team called pt to schedule post- visit. Pt informed that she has transferred care to another hospital system. [facility] Discharge summary note 10-07-2020 Note Date & Type Note Facility 10-07-2020 Note DISCHARGE SUMMARY [address] [address] Gilberto Chaoming Date of : 1990 29 [...] of labor for intrauterine demise. Made slow tar heat exchanger cleaner course of 24h. Following epidural placement on HD#2, patient found to be symptomatically hypotensive and required ongoing management from anesthesia. Bedside evaluation at this time revealed cervical dilation of 5cm, minimal tar heat exchanger cleaner preceding 8 hours. On tocometry, tachysystole appreciate [...] her routine visit in four weeks at [facility]. Discharge instructions included pelvic rest for six weeks and no heavy lifting greater than 10 pounds for six weeks. No future appointments. Carmen Hutton MD, MPH PGY-3, Obstetrics and Gynecology [facility] Note 06-27-2016 Telephone Encounter - Britta Molina RN - 06/27/2016 10:29 AM ESTTelephone Encounter - Rosa Coats - 06/27/2016 8:53 AM EST Note Date & Type Note Facility 06-27-2016 Miscellaneous Notes Returned patient's call and informed her that labs that were drawn at an outside lab are unable to be released to [facility]. Patient verbalizes understanding. Kavon Curran called today. : 1990 Allergies: Adhesive Tape (Rosins) (home) Reason for call: patient calling asking if her external labs from [facility] could be released into [facility]. Patient last appointment: Visit date not found The patients preferred pharmacy has been captured for this encounter? not asked Rosa Lowe documented in this encounter [facility] Evaluation note Note Date & Type Note Facility Evaluation note [facility]: Evaluation note Note Date & Type Note Facility Evaluation note Diagnosis PMDD (premenstrual dysphoric disorder) (CMS/[facility]) Premenstrual tension syndromes documented in this encounter [facility] History general Narrative - Reported Note Date & Type Note Facility History general Narrative - Reported Type Surgical History x2 Surgical History Oral surgery Hospitalization History See above [facility] Other Summary Purpose Family History No Family History Records FoundNo Family History Records FoundNo Family History Records FoundNo Family History Records FoundNo Family History Records FoundNo Family History Records FoundNo Family History Records FoundNo Family History Records FoundNo Family History Records Found Advance Directives Advance Directive Response Recorded Date/ Time Advance [...] section and content) DATE CREATED AUTHOR 11/20/2018 [facility] DATE CREATED AUTHOR AUTHOR'S ORGANIZ ATION [facility] DATE CREATED AUTHOR AUTHOR'S ORGANIZ ATION 08/20/2021 [facility] DATE CREATED AUTHOR AUTHOR'S ORGANIZ ATION 03/09/2022 [facility] DATE CREATED AUTHOR AUTHOR'S ORGANIZ ATION 10/09/2022 [facility] DATE CREATED AUTHOR AUTHOR'S ORGANIZ ATION 12/25/2022 [facility] DATE CREATED AUTHOR AUTHOR'S ORGANIZ ATION 02/16/[address] [facility] DATE CREATED AUTHOR AUTHOR'S ORGANIZ ATION 08/25/2023 [facility] DATE CREATED AUTHOR AUTHOR'S ORGANIZ ATION 03/23/2024 [facility] [employer] Comments (unrecognize d section and content) In the event this informatio n is protected by the Federal Confidentiality of Alcohol and Drug Abuse Patient Records regulations: The Federal rules restrict any use of the information to criminally investigate or prosecute any alcohol or drug abuse patient.[facility] Reason for Visit (unrecogniz ed section and content) Reason Onset Date Comments Results 06/27/2016 Reason Comments PMDD issues Care Teams (unrecognized sec tion and content) Senior Chemical Process Engineer Relationship Specialty Start Date End Date Jenna Bansal [address] [place] [address] PCP - General Family Medicine 12/14/17 Team Status: Active Member Role Status Dates Jenna Bansal PA-C Primary Care Provider Active Team Status: Inactive Member Role Status Dates Jenna Bansal PA-C Primary Care Provider Active Alanis Zaidi APRN Attending Provider Active Senior Chemical Process Engineer Relationship Specialty Start Date End Date Nabor Marroquin DO [address] [place], [place] [id number] Physician Obstetrics/Gynecology 06/19/20 Duncan Nguyễn MD [address] [place], [place] [id number] Physician Neuropathology 09/18/20 Yudy Agudelo MD [address] [place], [place] [address] Resident Obstetrics/Gynecology 10/16/20 Senior Chemical Process Engineer Relationship Specialty Start Date End Date Christopher Ramsey MD [address] [place] [address] PCP - General Family Medicine 12/16/22 Senior Chemical Process Engineer Relationship Specialty Start Date End Date Christopher Ramsey MD [address] [place] [address] PCP - General Family Medicine 12/16/22 Senior Chemical Process Engineer Relationship Specialty Start Date End Date Christopher Ramsey MD PCP - General Family Medicine 12/16/22 Goals (unrecognized section and content) Goals may [...] BE BASED ON THE PRIMARY CLINICAL RECORDS. [facility] [employer] [facility]. provides no warranty or guarantee of the accuracy or completeness of information in this document.
[2024-11-28 14:13] LABS: Age Gdln ACOG Testing Note (.); HPV Aptima Negative (Negative); IGP, Aptima HPV, rfx 16/18,45 Note (.)
== END 2024-11-25 19:42 | disposition home or self-care (01) ==
LOC: LAB 19:41
PROVIDERS: PCP Family Medicine; Visit Provider Obstetrics & Gynecology
DX: Z01.419 Encounter for gynecological examination (general) (routine) without abnormal findings (principal)
CPT/HCPCS: 87624; 88175

== ENCOUNTER 2025-01-10 07:20 | Outpatient (OUT) | payer OTHER, SELFPAY ==
--- OUTSIDE RECORDS SUMMARY | 2025-01-10 07:22 | XMS_ITS | CCD ---
Author Organization [facility] Care Team Providers Care Transportation Supervisor Name Role Phone GINGER, DAT S Referring Unavailable NIMISHA, JENNA Primary Care Unavailable VIGESAA, DAT S Referring Unavailable NIMISHA, JENNA Primary Care Unavailable VIGESAA, DAT S Referring Unavailable NIMISHA, JENNA Primary Care Unavailable VIGESAA, DAT S Referring Unavailable NIMISHA, JENNA Primary Care Unavailable VIGESAA, DTA S Referring Unavailable NIMISHA, JENNA Primary Care Unavailable VIGESAA, DAT S Referring Unavailable NIMISHA, JENNA Primary Care Unavailable VIGESAA, DAT S Referring Unavailable NIMISHA, JENNA Primary Care Unavailable Pcp, No Primary Care Provider UnavailLidia Goodrich Primary Care Provider [phone] NABOR MARROQUIN Referring Unavailable PROVIDER, UNKNOWN Attending Unavailable PROVIDER, UNKNOWN Admitting Unavailable PROVIDER, UNKNOWN Admitting Unavailable NABOR MARROQUIN Referring Unavailable PROVIDER, UNKNOWN Attending Unavailable NABOR MARROQUIN Referring Unavailable PROVIDER, UNKNOWN Attending Unavailable PROVIDER, UNKNOWN Admitting Unavailable PRINZ EDELMIRA, EJNNA Admitting Unavailab NABOR Marrero Attending Unavailable SELF, [...] LUIS Attending Unavailable DOUG, LUIS Admitting Unavailable [place], DR JR Da Silva Consulting Unavailable HOY [...] Unavailable ZIEBER, DR LINO Funk Consulting Unavailable [place], DR JR Da Silva Consulting Unavailable HOY ., DR WHITE Primary Care Unavailable DOUG, LUIS Attending Unavailable DUOG, LUIS Admitting Unavailable DOUG, LUIS Consulting Unavailable DOUG, LUIS Consulting Unavailable HOY ., DR WHITE Primary Care Unavailable DOUG, LUIS Attending Unavailable DOUG, LUIS Admitting Unavailable ZIEBER, DR LINO Funk Consulting Unavailable Jenna Bansal Primary Care Provider HOMER RAMOS Referring Unavailable JENNA BANSAL Primary Care Unavailable KOTA Bansal Primary Care Provider TUCKER Zaidi Attending Provider Alanis Zaidi Unavailable Nabor Marroquin DO Unavailable Duncan Nguyễn MD Unavailable Yudy Agudelo MD Unavailable Jenna Bansal Primary Care Unavailable Alanis Zaidi Admitting Unavailable Alanis Zaidi Attending Unavailable Jenna Bansal Primary Care Unavailable Luis Camacho Admitting Unavailable Luis Camacho Attending Unavailable Christopher Hunter MD Primary Care Provider [phone] Christopher Hunter MD Primary Care Provider [phone] LUIS CAMACHO Attending Unavailable LUIS CAMACHO Attending Unavailable Allergies Allergy Classification Reported Allergen(s) Allergy Type Date of Onset Reaction(s) Facility Adhesive Tape (1 source) Adhesive Tape Substance Allergy 6 Rash [facility] (2 sources) BANDAGE TAPE; Translations: [BANDAGE TAPE] Propensity to adverse reactions (disorder) 6 Rash [facility] [employer] [facility] (3 sources) Adhesive Tape; Translations: [ADHESIVE TAPE] Propensity to adverse reactions (disorder) 8 [facility] Repository (1 source) Adhesive bandage Drug allergy (disorder) The [facility] (1 source) tape adhesive Propensity to adverse reactions rash [employer] Other Medications Current Medications Medication Drug Class(es) Dates Sig (Normalized) Sig (Original) Aircast Sport Ankle Brace/Left - (1 source) Start: 07-06-2023 [employer] Sport Ankle Brace/Left - as directed Jun, Active Aspirin (1 source) Platelet Aggregation Inhibitor, Nonsteroidal Anti-inflammatory Drug BABY ASPIRIN PO Take by mouth 0 Active desogestrel 0.15 mg / ethinyl estradiol 0.03 mg oral tablet (5 sources) Progestin, Estrogen Start: 03-21-2024 End: 06-13-2024 take 1 tablet by mouth once daily, then take 1 tablet by mouth once daily desogestrel-ethinyl estradiol (Apri) 0.15-30 MG-MCG tablet Indications: PMDD (premenstrual dysphoric disorder) ([facility]) Take 1 tablet by mouth Daily Take 1 tablet by mouth daily 84 tablet 3 03/21/2024 Active docusate sodium 100 mg oral capsule (1 source) Start: 09-16-2020 take 1 capsule by mouth twice daily at mealtime docusate sodium (COLACE) 100 MG capsule Take 1 Capsule by mouth 2 times daily (with meals). 60 Capsule 3 09/16/2020 Active drospirenone 4 mg oral tablet (3 sources) Progestin Start: 11-25-2024 End: 02-17-2025 take 1 tablet by mouth once daily Drospirenone (Slynd) 4 MG tablet Indications: Well woman exam with routine gynecological exam , Decreased libido , PMDD (premenstrual dysphoric disorder) (CMS/HCC) Take 1 tablet by mouth Daily 84 tablet 3 11/25/2024 02/17/2025 Active ferrous sulfate 325 mg oral tablet [...] Active magnesium oxide 400 mg oral tablet (8 sources) Start: 11-01-2023 take 1 tablet by mouth once daily as needed magnesium oxide (Mag-Ox) 400 MG tablet Indications: Headache, unspecified TAKE 1 TABLET BY MOUTH EVERY DAY NEEDED FOR 30 DAYS 30 tablet 3 11/01/2023 Active Start: 10-17-2022 take 1 tablet by chaim once daily as needed magnesium oxide (MAG-OX) [...] Multiple Vitamins (FLINSTONES GUMMIES OMEGA-3 DHA PO) (6 sources) Pediatric Multiple Vitamins (FLINSTONES GUMMIES OMEGA-3 DHA PO) Take by mouth Active polyethylene glycol 3350 42323 mg powder for oral solution (1 source) [...] Semaglutide-Weigh t Management 1.7 MG/0.75ML solution auto-injector (6 sources) Start: 03-08-2024 inject 0.5 mL by subcutaneous injection every week Semaglutide-Weig ht Management 1.7 MG/0.75ML solution auto-injector 0.5 mL Subcutaneous Once Weekly for 30 days 03/08/2024 Active sennosides, skilled nursing 8.6 mg oral tablet (1 source) Start: [...] Problem Date Documented Date Episodic/Chronic Cardiac dysrhythmias (9 sources) Supraventricular tachycardia; Translations: [Supraventricular tachycardia] Onset: 06-22-2018 06-22-2018 Chronic Coagulation and hemorrhagic disorders (7 sources) Disorder of hemostatic system; Translations: [Coagulation defect, unspecified] Onset: 01-24-2023 01-24-2023 Chronic Genitourinary symptoms and ill-defined conditions (1 source) Dysuria; Translations: [Dysuria] Episodic Menstrual disorders (4 sources) Irregular menstruation, unspecified; Translations: [Amenorrhea] Onset: 08-29-2022 Chronic Mood disorders (4 sources) Premenstrual dysphoric disorder; Translations: [Premenstrual dysphoric [...] WEEKS GESTATION OF ] Onset: 08-22-2022 Episodic Residual codes; unclassified (2 sources) Reduced libido; Translations: [Decreased libido] 11-25-2024 Episodic Sprains and strains (1 source) Sprain of unspecified ligament of left ankle, initial encounter Episodic Unclassified (1 source) Injury, unspecified, initial encounter; Translations: [Injury, unspecified, initial encounter] Onset: 07-06-2023 Unclassified (7 sources) OB Reminders Onset: 01-02-2023 01-02-2023 Urinary tract infections (1 source) Urinary tract infectious disease; Translations: [UTI (lower urinary tract infection)] Episodic Past or Other Problems Problem Classification Problem Date Documented Date Episodic/Chronic Abdominal pain (7 sources) Pain in female pelvis; Translations: [Pelvic and perineal pain] Onset: 01-24-2023 01-24-2023 Episodic Diabetes or abnormal glucose tolerance complicating ; childbirth; or the puerperium (1 source) Abnormal glucose complicating ; Translations: [Abnormal glucose complicating ] Onset: 12-24-2022 Episodic Hemorrhage during ; abruptio placenta; placenta previa (15 sources) Other antepartum hemorrhage, first trimester; Translations: [Antepartum hemorrhage, unspecified, first trimester] Onset: 08-21-2022 Episodic Immunizations and screening for infectious disease (1 source) Encounter for screening for human papillomavirus (HPV); Translations: [ENC SCREENING HUMAN PAPILLOMAVIRUS] Onset: 07-08-2022 Episodic Other complications of ; puerperium affecting management of mother (9 sources) Abnormality of heart; Translations: [ ventricular septal defect affecting antepartum care of mother] Onset: 01-11-2018 01-11-2018 Episodic Other complications of ; puerperium affecting management of mother (8 sources) , affecting management of mother; Translations: [Maternal care for intrauterine , not applicable or unspecified] Onset: 09-13-2020 09-13-2020 Episodic Other complications of (9 sources) Supervision of with other poor reproductive or obstetric history, third trimester; Translations: [ with other poor obstetric history] Onset: 01-11-2018 01-11-2018 Episodic Other complications of (2 sources) Supervision of other high risk pregnancies, second trimester; Translations: [Supervision of other high risk pregnancies, second trimester] Onset: 10-26-2022 Episodic Other connective tissue disease (7 sources) Ganglion cyst of left hand; Translations: [Ganglion, left hand] Onset: 02-07-2022 01-24-2023 Episodic Other screening for suspected conditions (not mental disorders or infectious disease) (20 sources) Encounter for screening, unspecified; Translations: [Encounter for other screening for genetic and chromosomal anomalies] Onset: 01-11-2018 Episodic Other skin disorders (7 sources) Localized swelling, mass and lump, right upper limb; Translations: [Localized superficial swelling, mass, or lump] Onset: 01-24-2023 01-24-2023 Episodic Polyhydramnios and other problems of amniotic cavity (8 sources) Other specified disorders of amniotic fluid and membranes, second trimester, not applicable or unspecified; Translations: [Disorder of amniotic cavity AND/OR membrane] Onset: 10-07-2022 01-24-2023 Episodic Residual codes; unclassified (2 sources) Personal history of other complications of , childbirth and the puerperium; Translations: [Personal history of other complications of , childbirth and the puerperium] Onset: 10-26-2022 Episodic Residual codes; unclassified (7 sources) Dyssomnia; Translations: [Sleep disorder, unspecified] Onset: 01-24-2023 01-24-2023 Episodic Residual codes; unclassified (7 sources) History of intrauterine ; Translations: [Personal history of other complications of , childbirth and the puerperium] Onset: 01-24-2023 01-24-2023 Episodic Residual codes; unclassified (3 sources) Pain and tenderness; Translations: [Pain, unspecified] Onset: 01-24-2023 01-24-2023 Episodic Residual codes; unclassified (4 sources) Pain; Translations: [Pain, unspecified] Onset: 01-24-2023 01-24-2023 Episodic Results Test Name Value Interpretation Reference Range Facility IGP,APTIMA HPV,AGE GDLNon AGE GDLN ACOG TESTING Note . [facility] Comment on above: TESTS RESULT FLAG UN ITS REF RANGE LAB Clinician Provided Cytology Information Source.............Cervix;Endocervix No. of containers..01 ThinPrep Vial Age Nataly TALBOT Ximena... 28 FLAG LEGEND: L-Low Normal,H-High Normal,LL-Alert Low,HH-Alert High <-Panic Low,>-Panic High,A-Abnormal,AA-Critical Abnormal Performed at: 01 =[address] [phone] Jessica Owens MD, HPV APTIMA Negative Negative [facility] Comment on above: This nucleic acid am plification test detects fourteen high- risk HPV types (16,18,31,33,35,39,45,51,52,56,58,59,66,68) without differentiation. Performed at: =[address] [id number] Computer Recycling Worker: Jessica Owens MD, Phone: [phone] Performed at: - [address] [id number] Computer Recycling Worker: Jessica Owens MD, Phone: [phone] IGP, APTIMA HPV, RFX 16/18,45 Note . [facility] Comment on above: TESTS RESULT FLAG UN ITS REF RANGE LAB DIAGNOSIS: 02 NEGATIVE FOR INTRAEPITHELIAL LESION OR MALIGNANCY. Specimen adequacy: 02 Satisfactory for evaluation. No endocervical component is identified. Performed by: 02 Ladi Mars, Supervisory Anatomical Embalmer (ASCP) . 02 Note: Note 02 The Pap smear is a screening test designed to aid in the detection of premalignant and malignant conditions of the uterine cervix. It is not a diagnostic procedure and should not be used as the sole means of detecting cervical cancer. Both false-positive and false-negative reports do occur. Test Methodology: Note 02 This liquid based ThinPrep(R) pap test was screened with the use of an image guided system. HPV Genotype Reflex Note 02 Criteria not met, HPV Genotype not performed. FLAG LEGEND: L-Low Normal,H-High Normal,LL-Alert Low,HH-Alert High <-Panic Low,>-Panic High,A-Abnormal,AA-Critical Abnormal Performed at: [address] [phone] Jessica Owens MD, BRUSH-SPATULA CERVIX ENDOCERVIX [facility] Urinalysis macro (dipstick) panel (U)on 11-25-2024 Bilirubin, UA Negative Negative - 4(70) +++ mg/dL [facility] Blood, UA Negative Negative - 50 Hugo/mcL [facility] Clarity, UA Clear [facility] Color, UA Yellow [facility] Glucose, UA Negative Negative - 2000(110) ++++ mg/dL [facility] Interpretation and review of laboratory results Normal [facility] Ketones, UA Negative Negative - 160(16) ++++ mg/dL [facility] Leukocytes, UA Negative Negative - 500+++ Sally/mcL [facility] Nitrite, UA Negative Negative - Positive [facility] pH, UA 6.5 5 - 9 [facility] Protein, UA Negative Negative - 2000(20) ++++ mg/dL [facility] Spec Grav, UA 1.005 1 - 1.03 [facility] Urobilinogen, UA 0.2 0.2 - 12 mg/dL [facility] XR ankle LT min 3V*on 2022 XR ankle LT min 3V* [place] [address] XRay Report Signed Patient: Kavon Swain MR#: [id number] : 1990 Acct:[id number] Age/Sex: 32 / F ADM Date: 07/06/23 Loc: [facility] Room: Type: [facility] Attending Dr: Alanis Zaidi APRN Copies [...] Vira Pulliam M.D.07/06/2023 5:18 PM Dictation Location: [place] [address] Transcribed By: [facility] 07/06/231717 Dictated By: Vira Pulliam MD 07/06/231715 Signed By: 07/06/231717 Normal [facility] XR ankle LT min 3V* [facility] [employer] Other XR ankle LT min 3V* [facility] [employer] Other XR ankle LT min 3V* [address] [place] [address] [employer] Other XR ankle LT min 3V* [place] [address] [employer] Other XR ankle LT min 3V* XRay Report [employer] Other XR ankle LT min 3V* Signed [employer] Other XR ankle LT min 3V* Patient: Kavon Swain MR#: [employer] Other XR ankle LT min 3V* [id number] [employer] Other XR ankle LT min 3V* : 1990 Acct:[id number] [employer] Other XR ankle LT min 3V* Age/Sex: 32 / F ADM Date: 07/06/23 [employer] Other XR ankle LT min 3V* Loc: [facility] Room: Type: REG CLI [employer] Other XR ankle LT min 3V* Attending Dr: Alanis Zaidi APRN [employer] Other XR ankle LT min 3V* Copies to: Alanis Zaidi CHORUS DANCER [employer] Other XR ankle LT min 3V* Ordering Provider: Alanis Zaidi APRN [employer] Other XR ankle LT min 3V* Date of Service: 07/06/23 [employer] Other XR ankle LT min 3V* XR/XR ankle LT min 3V*: Injury [employer] Other XR ankle LT min 3V* LEFT ANKLE - 3 views [employer] Other XR ankle LT min 3V* CLINICAL DATA: Twisting injury left ankle 12 days ago with continued pain and bruising. [employer] Other XR ankle LT min 3V* COMPARISON: None [employer] Other XR ankle LT min 3V* AP, lateral and oblique views were obtained. There is no evidence of fracture or dislocation. [employer] Other XR ankle LT min 3V* The talar dome is intact. There is diffuse soft tissue swelling. [employer] Other XR ankle LT min 3V* XR/XR ankle LT min 3V* [employer] Other XR ankle LT min 3V* IMPRESSION: [employer] Other XR ankle LT min 3V* NO ACUTE BONY INJURY. [employer] Other XR ankle LT min 3V* Impression dictated by: Vira Pulliam M.D.07/06/2023 5:18 PM [employer] Other XR ankle LT min 3V* Dictation Location: [place] [address] [employer] Other XR ankle LT min 3V* Transcribed By: [facility] 07/06/23 [facility] [employer] Other XR ankle LT min 3V* Dictated By: Vira Pulliam MD 07/06/23 [facility] [employer] Other XR ankle LT min 3V* Signed By: [employer] Other XR ankle LT min 3V* 07/06/23 [facility] [employer] Other Glucose Tolerance 3 Houron 0 12-24-2022 Glucose Tolerance 3 Hour Normal [facility] Comment on above: Order Comment: FASTI [...] HOUR NOT ESTABLISHED < 140 PERFORMED BY: [place] [id number] PATHOLOGIST FORM GRADER SHELBI CHILEL M.D. Performed By: #### G TT3 #### [address] Lupus Anticoagulanton 2022 Dilute Gregory Viper Negative [facility] Comment on above: Performed By: #### P ROSAC, LUPPRO, HOCYS, PROCAC, AT3A #### [facility] [address] [place] [address] Computer Recycling Worker: Nile Cesar MD #### AF5MUT, AMTHFR #### [facility] [address] [place] [phone] Computer Recycling Worker: Thang Hull MD #### AAFPM #### [address] [address] Computer Recycling Worker: Nile Cesar MD [address] [phone] Computer Recycling Worker: Thang Hull MD Protein S Activityon 023 Protein S Activity 76 % Normal 59-130 [facility] Comment on above: Result Comment: Patients [...] P ROSAC, LUPPRO, HOCYS, PROCAC, AT3A #### [facility] [address] [place] [address] Computer Recycling Worker: Nile Cesar MD #### AF5MUT, AMTHFR #### [facility] [address] [place] [address] Computer Recycling Worker: Thang Hull MD #### AAFPM #### [address] [address] Computer Recycling Worker: Nile Cesar MD [facility] [address] [place] [phone] Computer Recycling Worker: Thang Hull MD Antithrombin III [place] 11-02 Antithrombin III Act 94 % Normal 83-122 [facility] Comment on above: Result Comment: Patients receiving Hirudin may have a falsely decreased Antitrombin III Activity. Performed By: #### P ROSAC, LUPPRO, HOCYS, PROCAC, AT3A #### [address] [address] Computer Recycling Worker: Nile Cesar MD #### AF5MUT, AMTHFR #### [facility] [address] [place] [phone] Computer Recycling Worker: Thang Hull MD #### AAFPM #### [address] [address] Computer Recycling Worker: Nile Cesar MD [address] [phone] Computer Recycling Worker: Thang Hull MD Protein C Activityon 023 Protein C Activity >150 Normal >80 [facility] Comment on above: Result Comment: Patients [...] P ROSAC, LUPPRO, HOCYS, PROCAC, AT3A #### [facility] [address] [place] [address] Computer Recycling Worker: Nile Cesar MD #### AF5MUT, AMTHFR #### [facility] [address] [place] [address] Computer Recycling Worker: Thang Hull MD #### AAFPM #### [facility] [address] [place] [address] Computer Recycling Worker: Nile Cesar MD [facility] [address] [place] [address] Computer Recycling Worker: Thang Hull MD Factor V Mutationon 11-02-19 23 F 5 SPECIMEN Whole Blood Normal [facility] Comment on above: Performed By: #### P ROSAC, LUPPRO, HOCYS, PROCAC, AT3A #### [facility] [address] [place] [address] Computer Recycling Worker: Nile Cesar MD #### AF5MUT, AMTHFR #### [facility] [address] [place] [address] Computer Recycling Worker: Thang Hull MD #### AAFPM #### [facility] [address] [place] [address] Computer Recycling Worker: Nile Cesar MD [facility] [address] [place] [address] Computer Recycling Worker: Thang Hull MD FACTOR 5 MUTATION Negative Normal [facility] Comment on above: Result Comment: (NOT E) Indication for testing: Assess genetic risk for thrombosis. NEGATIVE: The factor V Leiden variant, c.1601G>A; [id number], was not detected. This does not exclude [...] function in the F5 gene variant c.1601G>A (p.[id number]). Legacy nomenclature: [id number] (1691G>A) CLINICAL SENSITIVITY: 20-50 percent of individuals with an isolated VTE have the FVL variant. METHODOLOGY: Polymerase chain reaction and fluorescence monitoring. ANALYTICAL SENSITIVITY AND SPECIFICITY: 99 percent. LIMITATIONS: Diagnostic errors can occur due to rare sequence variations. F5 gene mutations, other than p.[id number], will not be detected. This test was developed and its performance characteristics determined by [facility]. It has not been cleared or approved by the [place] Food and Drug Administration. This test was performed in a CLIA certified laboratory and is intended for clinical purposes. Counseling and informed consent are recommended for genetic testing. Consent forms are available online. Performed by [facility], [address] [place] [id number] [email or web address], Mike Stratton MD, PHD, Lab. Director Performed By: #### P ROSAC, LUPPRO, HOCYS, PROCAC, AT3A #### [facility] [place] [address] Computer Recycling Worker: Nile Cesar MD #### AF5MUT, AMTHFR #### [facility] [address] [place] [address] Computer Recycling Worker: Thang Hull MD #### AAFPM #### [facility] [address] [place] [address] Computer Recycling Worker: Nile Cesar MD [facility] [address] [place] [address] Computer Recycling Worker: Thang Hull MD AFP, Maternalon 10-29-2022 Determined by Ultrasound [facility] Comment on above: Performed By: #### P ROSAC, LUPPRO, HOCYS, PROCAC, AT3A #### [facility] [address] [place] [address] Computer Recycling Worker: Nile Cesar MD #### AF5MUT, AMTHFR #### [facility] [address] [place] [address] Computer Recycling Worker: Thang Hull MD #### AAFPM #### [facility] [address] [place] [address] Computer Recycling Worker: Nile Cesar MD [facility] [address] [place] [address] Computer Recycling Worker: Thang Hull MD Due Date SEE NOTE [facility] Comment on above: Result Comment: Resu lts for Estimated Due Date: 03 24 23 Performed By: #### P ROSAC, LUPPRO, HOCYS, PROCAC, AT3A #### [facility] [address] [place] [address] Computer Recycling Worker: Nile Cesar MD #### AF5MUT, AMTHFR #### [facility] [address] [place] [address] Computer Recycling Worker: Thang Hull MD #### AAFPM #### [facility] [address] [place] [address] Computer Recycling Worker: Nile Cesar MD [facility] [address] [place] [address] Computer Recycling Worker: Thang Hull MD Family History No [facility] Comment on above: Performed By: #### P ROSAC, LUPPRO, HOCYS, PROCAC, AT3A #### [facility] [address] [place] [address] Computer Recycling Worker: Nile Cesar MD #### AF5MUT, AMTHFR #### [facility] [address] [place] [address] Computer Recycling Worker: Thang Hull MD #### AAFPM #### [address] [address] Computer Recycling Worker: Nile Cesar MD [facility] [address] [place] [address] Computer Recycling Worker: Thang Hull MD Gestat Age (exact) 18 wks, 5 days Normal [facility] Comment on above: Performed By: #### P ROSAC, LUPPRO, HOCYS, PROCAC, AT3A #### [facility] [address] [place] [address] Computer Recycling Worker: Nile Cesar MD #### AF5MUT, AMTHFR #### [facility] [address] [place] [address] Computer Recycling Worker: Thang Hull MD #### AAFPM #### [address] [address] Computer Recycling Worker: Nile Cesar MD [facility] [address] [place] [address] Computer Recycling Worker: Thang Hull MD Ins Req Matern Diab No Normal [facility] Comment on above: Performed By: #### P ROSAC, LUPPRO, HOCYS, PROCAC, AT3A #### [facility] [address] [place] [address] Computer Recycling Worker: Nile Cesar MD #### AF5MUT, AMTHFR #### [facility] [address] [place] [address] Computer Recycling Worker: Thang Hull MD #### AAFPM #### [address] [address] Computer Recycling Worker: Nile Cesar MD [address] [address] Computer Recycling Worker: Thang Hull MD Interpretation Screen Neg Normal [facility] Comment on above: Result Comment: (NOT E) INTERPRETATION: SCREEN NEGATIVE for open spina bifida Neural Tube Defects (NTD) Negative Pre-Test Post-Test Cutoff Neural Tube Defects Risks 1:1030 1:509 1:250 Comments: The risk of an open neural tube defect is less than the screening cut-off. This test was developed and its performance characteristics determined by [facility]. It has not been cleared or approved by the [place] Food and Drug Administration. This test was performed in a CLIA certified laboratory and is intended for clinical purposes. Performed By: #### Curt ROSAC, LUPPRO, HOCYS, PROCAC, AT3A #### [address] [address] Computer Recycling Worker: Nile Cesar MD #### [id number], AMTHFR #### [facility] [address] [place] [address] Computer Recycling Worker: Thang Hull MD #### AAFPM #### [address] [address] Computer Recycling Worker: Nile Cesar MD [address] [phone] Computer Recycling Worker: Thang Hull MD [age] Normal [facility] Comment on above: Performed By: #### P ROSAC, LUPPRO, HOCYS, PROCAC, AT3A #### [facility] [address] [place] [address] Computer Recycling Worker: Nile Cesar MD #### [id number], AMTHFR #### [facility] [address] [place] [address] Computer Recycling Worker: Thang Hull MD #### AAFPM #### [facility] [address] [place] [address] Computer Recycling Worker: Nile Cesar MD [facility] [address] [place] [address] Computer Recycling Worker: Thang Hull MD Maternal Race Nonblack [facility] Comment on above: Performed By: #### P ROSAC, LUPPRO, HOCYS, PROCAC, AT3A #### [facility] [address] [place] [address] Computer Recycling Worker: Nile Cesar MD #### [id number], AMTHFR #### [facility] [address] [place] [address] Computer Recycling Worker: Thang Hull MD #### AAFPM #### [facility] [address] [place] [address] Computer Recycling Worker: Nile Cesar MD [facility] [address] [place], [place] [id number] Computer Recycling Worker: Thang Hull MD Maternal Weight 285.0 lbs. [facility] Comment on above: Performed By: #### P ROSAC, LUPPRO, HOCYS, PROCAC, AT3A #### [facility] [address] [place] [address] Computer Recycling Worker: Nile Cesar MD #### [id number], AMTHFR #### [facility] [address] [place] [address] Computer Recycling Worker: Thang Hull MD #### AAFPM #### [facility] [address] [place] [address] Computer Recycling Worker: Nile Cesar MD [facility] [address] [place] [address] Computer Recycling Worker: Thang Hull MD MoM for AFP 2.18 Normal [facility] Comment on above: Performed By: #### P ROSAC, LUPPRO, HOCYS, PROCAC, AT3A #### [facility] [address] [place] [address] Computer Recycling Worker: Nile Cesar MD #### AF5MUT, AMTHFR #### [facility] [address] [place] [address] Computer Recycling Worker: Thang Hull MD #### AAFPM #### [address] [address] Computer Recycling Worker: Nile Cesar MD [facility] [address] [place], [place] [id number] Computer Recycling Worker: Thang Hull MD Number of Fetuses [place] Normal [facility] Comment on above: Performed By: #### P ROSAC, LUPPRO, HOCYS, PROCAC, AT3A #### [facility] [address] [place] [address] Computer Recycling Worker: Nile Cesar MD #### AF5MUT, AMTHFR #### [facility] [address] [place] [address] Computer Recycling Worker: Thang Hull MD #### AAFPM #### [address] [address] Computer Recycling Worker: Nile Cesar MD [facility] [address] [place] [address] Computer Recycling Worker: Thang Hull MD Patient's AFP 70 ng/mL Normal [facility] Comment on above: Performed By: #### P ROSAC, LUPPRO, HOCYS, PROCAC, AT3A #### [facility] [address] [place] [address] Computer Recycling Worker: Nile Cesar MD #### AF5MUT, AMTHFR #### [facility] [address] [place] [address] Computer Recycling Worker: Thang Hull MD #### AAFPM #### [facility] [address] [place] [address] Computer Recycling Worker: Nile Cesar MD [address] [address] Computer Recycling Worker: Thang Hull MD Smoking Unknown [facility] Comment on above: Performed By: #### P ROSAC, LUPPRO, HOCYS, PROCAC, AT3A #### [facility] [address] [place] [address] Computer Recycling Worker: Nile Cesar MD #### AF5MUT, AMTHFR #### [facility] [address] [place] [address] Computer Recycling Worker: Thang Hull MD #### AAFPM #### [address] [address] Computer Recycling Worker: Nile Cesar MD [address] [address] Computer Recycling Worker: Thang Hull MD Specimen See Note [facility] Comment on above: Result Comment: (NOT E) Initial sample Performed by [facility], [address] [place] [id number] [email or web address], Mike Stratton MD, PHD, Lab. Director Performed By: #### P ROSAC, LUPPRO, HOCYS, PROCAC, AT3A #### [address] [address] Computer Recycling Worker: Nile Cesar MD #### AF5MUT, AMTHFR #### [facility] [address] [place] [address] Computer Recycling Worker: Thang Hull MD #### AAFPM #### [address] [address] Computer Recycling Worker: Nile Cesar MD [facility] [address] [place] [address] Computer Recycling Worker: Thang Hull MD MTHFR Gene Mutationon 2022 MTHFR 1286 A>C Mut Heterozygous Normal [facility] Comment on above: Performed By: #### P ROSAC, LUPPRO, HOCYS, PROCAC, AT3A #### [address] [address] Computer Recycling Worker: Nile Cesar MD #### AF5MUT, AMTHFR #### [facility] [address] [place] [address] Computer Recycling Worker: Thang Hull MD #### AAFPM #### [address] [address] Computer Recycling Worker: Nile Cesar MD [address] [address] Computer Recycling Worker: Thang Hull MD MTHFR 655C>T Mut Heterozygous Normal [facility] Comment on above: Performed By: #### P ROSAC, LUPPRO, HOCYS, PROCAC, AT3A #### [address] [address] Computer Recycling Worker: Nile Cesar MD #### AF5MUT, AMTHFR #### [facility] [address] [place] [address] Computer Recycling Worker: Thang Hull MD #### AAFPM #### [address] [address] Computer Recycling Worker: Nile Cesar MD [facility] [address] [place] [address] Computer Recycling Worker: Thang Hull MD MTHFR Interpretation See Note Normal [facility] Comment on above: Result Comment: (NOT E) Indication for testing: Determine genetic contribution to hyperhomocysteinemia. Compound Heterozygous MTHFR c.665C>T/c.1286A>C: One copy of each of the two MTHFR gene variants tested, c.665C>T (previously designated C677T) and c.1286A>C (previously designated I7507L) were detected. This genotype may be associated [...] has an effect on cardiovascular disease. The [employer] Practice Guidelines indicate [...] a contributing factor to hyperhomocysteinemia. Variants Tested: c.665C>T(p.Gez926Lsg) and c.1286A>C(p.Tkm683Asc). (legacy names C677T and Z9331F, respectively). Clinical Sensitivity: Undefined; hyperhomocysteinemia is caused [...] developed and its performance characteristics determined by [facility]. It has not been cleared or approved by the US Food and Drug Administration. This test was performed in a CLIA certified laboratory and is intended for clinical purposes. Counseling and informed consent are recommended for genetic testing. Consent forms are available online. Performed by [facility], [address] [place] [id number] [email or web address], Mike Stratton MD, PHD, Lab. Director Performed By: #### P ROSAC, LUPPRO, HOCYS, PROCAC, AT3A #### [address] [address] Computer Recycling Worker: Nile Cesar MD #### AF5MUT, AMTHFR #### [facility] [address] [place] [address] Computer Recycling Worker: Thang Hull MD #### AAFPM #### [address] [address] Computer Recycling Worker: Nile Cesar MD [address] [phone] Computer Recycling Worker: Thang Hull MD [facility] SPECIMEN Whole Blood Normal [facility] Comment on above: Performed By: #### P ROSAC, LUPPRO, HOCYS, PROCAC, AT3A #### [address] [address] Computer Recycling Worker: Nile Cesar MD #### AF5MUT, AMTHFR #### [facility] [address] [place], [place] [id number] Computer Recycling Worker: Thang Hull MD #### AAFPM #### [address] [address] Computer Recycling Worker: Nile Cesar MD [address] [phone] Computer Recycling Worker: Thang Hull MD Lupus Anticoagulanton 2022 Anticardiolipin IgG 0.9 GPL Normal 0.0-10.0 [facility] Comment on above: Result Comment: Reference Range: <10.0 Negative 10.0-40.0 Equivocal >40.0 Positive Performed By: #### P ROSAC, LUPPRO, HOCYS, PROCAC, AT3A #### [address] [address] Computer Recycling Worker: Nile Cesar MD #### AF5MUT, AMTHFR #### [address] [phone] Computer Recycling Worker: Thang Hull MD #### AAFPM #### [address] [address] Computer Recycling Worker: Nile Cesar MD [address] [phone] Computer Recycling Worker: Thang Hull MD Anticardiolipin IgA 1.4 APL Normal 0.0-14.0 [facility] Comment on above: Result Comment: Reference Range: <14.0 Negative 14.0-20.0 Equivocal >20.0 Positive When results are Equivocal, it is recommended to retest after 4-6 weeks. Performed By: #### P ROSAC, LUPPRO, HOCYS, PROCAC, AT3A #### [address] [address] Computer Recycling Worker: Nile Cesar MD #### AF5MUT, AMTHFR #### [address] [phone] Computer Recycling Worker: Thang Hull MD #### AAFPM #### [address] [address] Computer Recycling Worker: Nile Cesar MD [address] [phone] Computer Recycling Worker: Thang Hull MD Anticardiolipin IgM 3.6 MPL Normal 0.0-10.0 [facility] Comment on above: Result Comment: Reference Range: <10.0 Negative 10.0-40.0 Equivocal >40.0 Positive Performed By: #### P ROSAC, LUPPRO, HOCYS, PROCAC, AT3A #### [address] [address] Computer Recycling Worker: Nile Cesar MD #### AF5MUT, AMTHFR #### [facility] [address] [place] [address] Computer Recycling Worker: Thang Hull MD #### AAFPM #### [facility] [address] [place] [address] Computer Recycling Worker: Nile Cesar MD [facility] [address] [place] [address] Computer Recycling Worker: Thang Hull MD [facility] Current Smoking INFORMATION NOT PROVIDED [facility] Comment on above: Performed By: #### P ROSAC, LUPPRO, HOCYS, PROCAC, AT3A #### [facility] [address] [place] [address] Computer Recycling Worker: Nile Cesar MD #### AF5MUT, AMTHFR #### [facility] [address] [place] [address] Computer Recycling Worker: Thang Hull MD #### AAFPM #### [address] [address] Computer Recycling Worker: Nile Cesar MD [address] [address] Computer Recycling Worker: Thang Hull MD [facility] Comment on above: Performed By: #### P ROSAC, LUPPRO, HOCYS, PROCAC, AT3A #### [facility] [address] [place] [address] Computer Recycling Worker: Nile Cesar MD #### AF5MUT, AMTHFR #### [facility] [address] [place] [address] Computer Recycling Worker: Thang Hull MD #### AAFPM #### [facility] [address] [place] [address] Computer Recycling Worker: Nile Cesar MD [facility] [address] [place] [address] [place] [address] Computer Recycling Worker: Thang Hull MD Diabetic NO [facility] Comment on above: Performed By: #### P ROSAC, LUPPRO, HOCYS, PROCAC, AT3A #### [facility] [address] [place] [address] Computer Recycling Worker: Nile eCsar MD #### AF5MUT, AMTHFR #### [facility] [address] [place] [address] Computer Recycling Worker: Thang Hull MD #### AAFPM #### [facility] [address] [place] [address] Computer Recycling Worker: Nile Cesar MD [facility] [address] [place] [address] Computer Recycling Worker: Thang Hull MD [employer] Egg INFORMATION NOT PROVIDED [facility] Comment on above: Performed By: #### P ROSAC, LUPPRO, HOCYS, PROCAC, AT3A #### [facility] [address] [place] [address] Computer Recycling Worker: Nile Cesar MD #### AF5MUT, AMTHFR #### [facility] [address] [place] [address] Computer Recycling Worker: Thang Hull MD #### AAFPM #### [facility] [address] [place] [address] Computer Recycling Worker: Nile Cesar MD [facility] [address] [place] [address] Computer Recycling Worker: Thang Hull MD Estimated Due Date 03/24/2023 [facility] Comment on above: Performed By: #### P ROSAC, LUPPRO, HOCYS, PROCAC, AT3A #### [facility] [address] [place] [address] Computer Recycling Worker: Nile Cesar MD #### AF5MUT, AMTHFR #### [facility] [address] [place] [address] Computer Recycling Worker: Thang Hull MD #### AAFPM #### [facility] [address] [place] [address] Computer Recycling Worker: Nile Cesar MD [facility] [address] [place] [address] Computer Recycling Worker: Thang Hull MD Family History NO Normal [facility] Comment on above: Performed By: #### P ROSAC, LUPPRO, HOCYS, PROCAC, AT3A #### [facility] [address] [place] [address] Computer Recycling Worker: Nile Cesar MD #### AF5MUT, AMTHFR #### [facility] [address] [place] [address] Computer Recycling Worker: Thang Hull MD #### AAFPM #### [facility] [address] [place] [address] Computer Recycling Worker: Nile Cesar MD [facility] [address] [place] [address] Computer Recycling Worker: Thang Hull MD In Vitro Fertalizat INFORMATION NOT PROVIDED Normal [facility] Comment on above: Performed By: #### P ROSAC, LUPPRO, HOCYS, PROCAC, AT3A #### [facility] [address] [place] [address] Computer Recycling Worker: Nile Cesar MD #### AF5MUT, AMTHFR #### [facility] [address] [place] [address] Computer Recycling Worker: Thang Hull MD #### AAFPM #### [address] [address] Computer Recycling Worker: Nile Cesar MD [facility] [address] [place] [address] Computer Recycling Worker: Thang Hull MD Maternal date 1990 [facility] Comment on above: Performed By: #### P ROSAC, LUPPRO, HOCYS, PROCAC, AT3A #### [facility] [address] [place] [address] Computer Recycling Worker: Nile Cesar MD #### AF5MUT, AMTHFR #### [facility] [address] [place] [address] Computer Recycling Worker: Thang Hull MD #### AAFPM #### [facility] [address] [place] [address] Computer Recycling Worker: Nile Cesar MD [facility] [address] [place] [address] Computer Recycling Worker: Thang Hull MD Maternal Weight 285 Normal [facility] Comment on above: Performed By: #### P ROSAC, LUPPRO, HOCYS, PROCAC, AT3A #### [facility] [address] [place] [address] Computer Recycling Worker: Nile Cesar MD #### AF5MUT, AMTHFR #### [facility] [address] [place] [address] Computer Recycling Worker: Thang Hull MD #### AAFPM #### [facility] [address] [place] [address] Computer Recycling Worker: Nile Cesar MD [facility] [address] [place] [address] Computer Recycling Worker: Thang Hull MD Monochorionic Twins INFORMATION NOT PROVIDED [facility] Comment on above: Performed By: #### P ROSAC, LUPPRO, HOCYS, PROCAC, AT3A #### [facility] [address] [place] [address] Computer Recycling Worker: Nile Cesar MD #### AF5MUT, AMTHFR #### [facility] [address] [place] [address] Computer Recycling Worker: Thang Hull MD #### AAFPM #### [facility] [address] [place] [address] Computer Recycling Worker: Nile Cesar MD [facility] [address] [place] [address] Computer Recycling Worker: Thang Hull MD Patient Weight Units LBS [facility] Comment on above: Performed By: #### P ROSAC, LUPPRO, HOCYS, PROCAC, AT3A #### [facility] [address] [place] [address] Computer Recycling Worker: Nile Cesar MD #### AF5MUT, AMTHFR #### [facility] [address] [place] [address] Computer Recycling Worker: Thang Hull MD #### AAFPM #### [facility] [address] [place] [address] Computer Recycling Worker: Nile Cesar MD [facility] [address] [place] [address] Computer Recycling Worker: Thang Hull MD Race (Maternal) WHITE [facility] Comment on above: Performed By: #### P ROSAC, LUPPRO, HOCYS, PROCAC, AT3A #### [facility] [address] [place] [address] Computer Recycling Worker: Nile Cesar MD #### AF5MUT, AMTHFR #### [facility] [address] [place] [address] Computer Recycling Worker: Thang Hull MD #### AAFPM #### [facility] [address] [place] [address] Computer Recycling Worker: Nile Cesar MD [facility] [address] [place] [address] Computer Recycling Worker: Thang Hull MD Repeat Specimen NO Normal [facility] Comment on above: Performed By: #### P ROSAC, LUPPRO, HOCYS, PROCAC, AT3A #### [facility] [address] [place] [address] Computer Recycling Worker: Nile Cesar MD #### AF5MUT, AMTHFR #### [facility] [address] [place] [address] Computer Recycling Worker: Thang Hull MD #### AAFPM #### [facility] [address] [place] [address] Computer Recycling Worker: Nile Cesar MD [facility] [address] [place] [address] Computer Recycling Worker: Thang Hlul MD Valproic/Carbamaze p INFORMATION NOT PROVIDED Normal [facility] Comment on above: Performed By: #### P ROSAC, LUPPRO, HOCYS, PROCAC, AT3A #### [facility] [address] [place] [address] Computer Recycling Worker: Nile Cesar MD #### AF5MUT, AMTHFR #### [facility] [address] [place] [address] Computer Recycling Worker: Thang Hull MD #### AAFPM #### [facility] [address] [place] [address] Computer Recycling Worker: Nile Cesar MD [facility] [address] [place] [address] Computer Recycling Worker: Thang Hull MD Homocysteineon 10-26-2022 Homocysteine 6.7 umol/L Normal <15.0 [facility] Comment on above: Performed By: #### P ROSAC, LUPPRO, HOCYS, PROCAC, AT3A #### [facility] [address] [place] [address] Computer Recycling Worker: Nile Cesar MD #### AF5MUT, AMTHFR #### [facility] [address] [place], [place] [phone] Computer Recycling Worker: Thang Hull MD #### AAFPM #### [address] [address] Computer Recycling Worker: Nile Cesar MD [facility] [address] [place] [address] Computer Recycling Worker: Thang Hull MD Homocysteine 6.7 umol/L NINF - 15.0 umol/L [facility] Lupus Anticoagulanton 2022 aPTT Coag (Bld) [Time] 25.8 s Normal 23.0-36.5 [facility] Comment on above: Performed By: #### P ROSAC, LUPPRO, HOCYS, PROCAC, AT3A #### [address] [address] Computer Recycling Worker: Nile Cesar MD #### AF5MUT, AMTHFR #### [facility] [address] [place] [phone] Computer Recycling Worker: Thang Hull MD #### AAFPM #### [address] [address] Computer Recycling Worker: Nile Cesar MD [facility] [address] [place], [place] [phone] Computer Recycling Worker: Thang Hull MD INR Coag (PPP) [Relative time] 0.9 {INR} Normal [facility] Comment on above: Result Comment: Therapeutic Range: Moderate Anticoagulant Intensity: INR = 2.0-3.0 High Anticoagulant Intensity: INR = 2.5-3.5 Performed By: #### P ROSAC, LUPPRO, HOCYS, PROCAC, AT3A #### [address] [address] Computer Recycling Worker: Nile Cesar MD #### AF5MUT, AMTHFR #### [facility] [address] [place] [address] Computer Recycling Worker: Thang Hull MD #### AAFPM #### [address] [address] Computer Recycling Worker: Nile Cesar MD [facility] [address] [place] [address] Computer Recycling Worker: Thang Hull MD PT Coag (PPP) [Time] 11.7 s Normal 11.7-14.9 [facility] Comment on above: Performed By: #### P ROSAC, LUPPRO, HOCYS, PROCAC, AT3A #### [address] [address] Computer Recycling Worker: Nile Cesar MD #### AF5MUT, AMTHFR #### [facility] [address] [place] [address] Computer Recycling Worker: Thang Hull MD #### AAFPM #### [address] [address] Computer Recycling Worker: Nile Csear MD [facility] [address] [place] [address] Computer Recycling Worker: MD Romel Briones 10-26-2022 Romel Kit Forwarded to [facility] Comment on above: Performed By: #### N ATER #### [address] [address] Computer Recycling Worker: Nile Cesar MD Romel Kit Forwarded to [facility] Comment on above: Performed By: #### N ATER #### [address] [address] Computer Recycling Worker: Nile Cesar MD AFP MATERNAL FOR SPINA BIFID Aon 10-08-2022 AFP MoM 1.69 Normal [facility] Comment on above: Performed By: #### C BC #### [facility] [address] [address] [address] Brenna Mann AFP Value 39.4 ng/mL Normal [facility] Comment on above: Performed By: #### C BC #### [facility] [address] [address] [address] Brenna Mann AFP, Serum for Spina Bifida Report Normal [facility] Comment on above: Performed By: #### C BC #### [facility] [address] [address] [address] Brenna Mann Comment Comment [facility] Comment on above: Result Comment: Jesús Goodman, Ph.D., [facility] Director . References: Available Upon Request. . Multiples Of Median Cutoffs For AFP Elevations [place] 2.5 Black 2.8 IDD 2.0 Twins 4.5 Abbreviation Definitions IDD - Insulin Dep Diabetes OSBR - Open Spina Bifida Risk . For further inquiries contact [facility] at [phone]. . This test was developed and its performance characteristics determined by [facility]. It has not been cleared or approved by the Food and Drug Administration. Performed By: #### C BC #### [facility] [address] [place] [address] Dr. Brenna Ji Age Collection Date 15.[address] [facility] Comment on above: Performed By: #### C BC #### [facility] [address] [place] [address] Dr. Brenna Mann Gestat, Age Based on As provided Normal [facility] Comment on above: Result Comment: Reca lculations are not recommended when gestational dating by LMP and ultrasound are within 10 days. Performed By: #### C BC #### [facility] [address] [place] [address] Dr. Brenna Mann Insulin Dep Diabetes No Normal [facility] Comment on above: Performed By: #### C BC #### [facility] [address] [place] [address] Dr. Brenna Mann Interpretation Comment Normal [facility] Comment on above: Result Comment: Inte rpretation: [...] Customer Services to discuss available options. The [employer] recommends amniocentesis be offered to women age 35 and older. Performed By: #### C BC #### [facility] [address] [place] [address] Dr. Brenna Mann Maternal Age at [age] [age] yr Normal [facility] Comment on above: Performed By: #### C BC #### [facility] [address] [place] [address] Dr. Brenna aMnn Multiple Gestation No Normal [facility] Comment on above: Performed By: #### C BC #### [facility] [address] [place] [address] Dr. Brenna Mann OSBR Risk 1 [place] 1671 Normal [facility] Comment on above: Performed By: #### C BC #### [facility] [address] [place] [address] Dr. Brenna Mann PDF . Normal [facility] Comment on above: Performed By: #### C BC #### [facility] [address] [place] [address] Dr. Brenna Mann Race Normal [facility] Comment on above: Performed By: #### C BC #### [facility] [address] [place] [address] Dr. Brenna Mann Test Results: Negative Normal [facility] Comment on above: Performed By: #### C BC #### [facility] [address] [place] [address] Dr. Brenna Mann US PREG LIMITEDon 10-06-2022 [...] LINO ARROYO Date: 2022-10-06 15:09 Normal [facility] US PREG TVon 09-14-2022 US PREG TV [...] JR RITCHIE Date: 2022-09-14 17:18 Normal [facility] HEP B SURFACE ANTIGEN SCREEN on 09-11-2022 HBsAg Screen Negative Normal Negative [facility] Comment on above: Performed By: #### H BSANS #### [facility] [address] [place] [address] Dr. Brenna Mann HEPATITIS C VIRUS AB W/ REFL EX QUANTon 09-11-2022 HCV AB Non-Reactive Normal Non Reactive [facility] Comment on above: Performed By: #### [id number] #### [facility] [address] [address] [address] Brenna Mann Interpretation: Comment Normal [facility] Comment on above: Result Comment: Not infected with HCV unless early or acute infection is suspected (which may be delayed in an immunocompromised individual), or other evidence exists to indicate HCV infection. Performed By: #### 4 [id number] #### [facility] [address] [place] [address] Dr. Brenna Mann HIV 1 AND 2 WITH REFLEXon HIV Screen 4th Generation wRfx Non-Reactive Normal Non Reactive [facility] Comment on above: Result Comment: HIV Negative HIV-1/HIV-2 antibodies and HIV-1 p24 antigen were NOT detected. There is no laboratory evidence of HIV infection. Performed By: #### H IV12 #### [facility] [address] [place] [address] Dr. Brenna Mann RPR QUANTon 09-11-2022 Rapid Plasma Reagin, Quant Non-Reactive Normal NonRea<1:1 [facility] Comment on above: Result Comment: Plea se Note: This test does not meet current guidelines for screening and diagnosis of syphilis. This test is intended for following treatment response in patients being treated for syphilis infection. To screen for syphilis infection, a reflex cascade that includes both RPR and a treponema-specific assay should be utilized, such as Treponema pallidum (Syphilis) Screening [place] (702082) or Rapid Plasma Reagin (RPR) Test With Reflex to Quantitative RPR and Confirmatory Treponema pallidum Antibodies (213700). Performed By: #### [id number] #### [facility] [address] [place] [address] Dr. Brenna Mann RUBELLA AB IGGon 09-11-2022 Rubella Antibodies, IgG 2.41 index Normal Immune >0.99 [facility] Comment on above: Result Comment: Non- immune <0.90 Equivocal 0.90 - 0.99 Immune >0.99 Performed By: #### C BC #### [facility] [address] [place] [address] Dr. Brenna Mann CBC AUTO DIFFon 09-10-2022 BASO # 0.0 103/ul Normal 0.0-0.1 [facility] Comment on above: Performed By: #### C BC #### [facility] [address] [place] [address] Dr. Brenna Mann Basophils/100 WBC (Bld) 0.3 % Normal 0.2-2.0 [facility] Comment on above: Performed By: #### C BC #### [facility] [address] [place] [address] Dr. Brenna Mann EO # 0.3 103/ul Normal 0.0-0.7 [facility] Comment on above: Performed By: #### C BC #### [facility] [address] [address] [address] Brenna Mann Eosinophils/100 WBC (Bld) 2.7 % Normal 0.9-7.0 [facility] Comment on above: Performed By: #### C BC #### [facility] [address] [address] [address] Brenna Mann Erythrocyte distribution width (RBC) [Ratio] 13.8 % Normal 11.0-15.0 [facility] Comment on above: Performed By: #### C BC #### [facility] [address] [place] [address] Dr. Brenna Mann Hematocrit (Bld) [Volume fraction] 37.4 % Normal 36.0-48.0 [facility] Comment on above: Performed By: #### C BC #### [facility] [address] [place] [address] Dr. Brenna Mann Hemoglobin (Bld) [Mass/Vol] 12.2 g/dL Normal 12.0-16.0 [facility] Comment on above: Performed By: #### C BC #### [facility] [address] [place] [address] Dr. Brenna Mann IG # 0.10 10e3/ul Critically high 0.00-0.03 [facility] Comment on above: Performed By: #### C BC #### [facility] [address] [place] [address] Dr. Brenna Mann IG % 1.1 % Critically high 0.0-0.5 [facility] Comment on above: Performed By: #### C BC #### [facility] [address] [address] [address] Brenna Mann LYMPH # 2.4 103/ul Normal 1.2-3.8 [facility] Comment on above: Performed By: #### C BC #### [facility] [address] [place] [address] Dr. Brenna Mann Lymphocytes/100 WBC (Bld) 25.3 % Normal 20.5-60.0 [facility] Comment on above: Performed By: #### C BC #### [facility] [address] [place] [address] Dr. Brenna Mann MANUAL DIFF REQ NO Normal [facility] Comment on above: Performed By: #### C BC #### [facility] [address] [place] [address] Dr. Brenna Mann MCH (RBC) [Entitic mass] 27.8 pg Normal 26.7-34.0 [facility] Comment on above: Performed By: #### C BC #### [facility] [address] [place] [address] Dr. Brenna Mann MCHC (RBC) [Mass/Vol] 32.6 g/dL Normal 29.9-35.2 [facility] Comment on above: Performed By: #### C BC #### [facility] [address] [place] [address] Dr. Brenna Mann MCV (RBC) [Entitic vol] 85.2 fL Normal 81.0-99.0 [facility] Comment on above: Performed By: #### C BC #### [facility] [address] [place] [address] Dr. Brenna Mann MONO # 0.4 103/ul Normal 0.3-0.8 [facility] Comment on above: Performed By: #### C BC #### [facility] [address] [place] [address] Dr. Brenna Mann Monocytes/100 WBC (Bld) 3.7 % Normal 1.7-12.0 [facility] Comment on above: Performed By: #### C BC #### [facility] [address] [place] [address] Dr. Brenna Mann NEUT # 6.3 103/ul Normal 1.4-6.5 [facility] Comment on above: Performed By: #### C BC #### [facility] [address] [place] [address] Dr. Brenna Mann Neutrophils/100 WBC (Bld) 66.9 % Normal 43.0-75.0 [facility] Comment on above: Performed By: #### C BC #### [facility] [address] [place] [address] Dr. Brenna Mann Platelet mean volume (Bld) [Entitic vol] 12.1 fL Normal 9.5-13.5 [facility] Comment on above: Performed By: #### C BC #### [facility] [address] [place] [address] Dr. Brenna Mann PLT 172 103/ul Normal 150-450 [facility] Comment on above: Performed By: #### C BC #### [facility] [address] [place] [address] Dr. Brenna Mann RBC 4.39 106/ul Normal 4.20-5.40 [facility] Comment on above: Performed By: #### C BC #### [facility] [address] [place] [address] Dr. Brenna Mann WBC 9.3 103/ul Normal 4.0-11.0 [facility] Comment on above: Performed By: #### C BC #### [facility] [address] [place] [address] Dr. Brenna Mann CULTURE URINEon 09-10-2022 CULTURE URINE Culture Observations : NO GROWTH. Normal [facility] Comment on above: Performed By: #### C BC #### [facility] [address] [place] [address] Dr. Brenna Mann GLYCOHEMOGLOBIN A1Con 2022 ADA RECOMMENDATION SEE BELOW Normal [facility] Comment on above: Result Comment: ADA RECOMMENDED LIMIT 4.0 - 6.0 ADA THERAPEUTIC TARGET < 7.0 ACTION SUGGESTED > 7.0 Performed By: #### [id number] #### [facility] [address] [place] [address] Dr. Brenna Mann Glucose [Mass/Vol] 100 mg/dL Normal [facility] Comment on above: Performed By: #### 4 [id number] #### [facility] [address] [place] [address] Dr. Brenna Mann HbA1c (Bld) [Mass fraction] 5.1 % Normal 4.5-6.2 [facility] Comment on above: Performed By: #### 4 [id number] #### [facility] [address] [place] [address] Dr. Brenna Mann ROMEL BOX TEST PT SEND OUTo n 09-10-2022 SENT TO REF LAB 09/10/2022 Normal [facility] Comment on above: Performed By: #### 4 [id number] #### [facility] [address] [place] [address] Dr. Brenna Mann TSHon 09-10-2022 TSH 0.568 uIU/mL Normal 0.358-3.740 [facility] Comment on above: Performed By: #### T SH #### [facility] [address] [place] [address] Dr. Brenna Mann TYPE AND SCREENon 09-10-2022 TYPE AND SCREEN Negative Normal [facility] Comment on above: Performed By: #### C BC #### [facility] [address] [place] [address] Dr. Brenna Mann US PREG TVon 08-29-2022 [...] JR RITCHIE Date: 2022-08-29 16:12 Normal [facility] CBC AUTO DIFFon 08-21-2022 BASO # 0.0 103/ul Normal 0.0-0.1 [facility] Comment on above: Performed By: #### [id number] #### [facility] [address] [place] [address] Dr. Brenna Mann Basophils/100 WBC (Bld) 0.3 % Normal 0.2-2.0 [facility] Comment on above: Performed By: #### 4 [id number] #### [facility] [address] [place] [address] Dr. Brenna Mann EO # 0.1 103/ul Normal 0.0-0.7 [facility] Comment on above: Performed By: #### 4 [id number] #### [facility] [address] [place] [address] Dr. Brenna Mann Eosinophils/100 WBC (Bld) 1.2 % Normal 0.9-7.0 [facility] Comment on above: Performed By: #### 4 [id number] #### [facility] [address] [place] [address] Dr. Brenna Mann Erythrocyte distribution width (RBC) [Ratio] 14.3 % Normal 11.0-15.0 [facility] Comment on above: Performed By: #### 4 [id number] #### [facility] [address] [place] [address] Dr. Brenna Mann Hematocrit (Bld) [Volume fraction] 40.4 % Normal 36.0-48.0 [facility] Comment on above: Performed By: #### 4 [id number] #### [facility] [address] [place] [address] Dr. Brenna Mann Hemoglobin (Bld) [Mass/Vol] 12.9 g/dL Normal 12.0-16.0 [facility] Comment on above: Performed By: #### 4 [id number] #### [facility] [address] [place] [address] Dr. Brenna Mann IG # 0.08 10e3/ul Critically high 0.00-0.03 [facility] Comment on above: Performed By: #### 4 [id number] #### [facility] [address] [place] [address] Dr. Brenna Mann IG % 0.8 % Critically high 0.0-0.5 [facility] Comment on above: Performed By: #### 4 [id number] #### [facility] [address] [place] [address] Dr. Brenna Mann LYMPH # 2.8 103/ul Normal 1.2-3.8 [facility] Comment on above: Performed By: #### 4 [id number] #### [facility] [address] [place] [address] Dr. Brenna Mann Lymphocytes/100 WBC (Bld) 28.8 % Normal 20.5-60.0 [facility] Comment on above: Performed By: #### 4 [id number] #### [facility] [address] [place] [address] Dr. Brenna Mann MANUAL DIFF REQ NO Normal [facility] Comment on above: Performed By: #### 4 [id number] #### [facility] [address] [place] [address] Dr. Brenna Mann MCH (RBC) [Entitic mass] 28.4 pg Normal 26.7-34.0 [facility] Comment on above: Performed By: #### 4 [id number] #### [facility] [address] [place] [address] Dr. Brenna aMnn MCHC (RBC) [Mass/Vol] 31.9 g/dL Normal 29.9-35.2 [facility] Comment on above: Performed By: #### 4 [id number] #### [facility] [address] [place] [address] Dr. Brenna Mann MCV (RBC) [Entitic vol] 88.8 fL Normal 81.0-99.0 [facility] Comment on above: Performed By: #### 4 [id number] #### [facility] [address] [place] [address] Dr. Brenna Mann MONO # 0.7 103/ul Normal 0.3-0.8 [facility] Comment on above: Performed By: #### 4 [id number] #### [facility] [address] [place] [address] Dr. Brenna Mann Monocytes/100 WBC (Bld) 6.9 % Normal 1.7-12.0 [facility] Comment on above: Performed By: #### 4 [id number] #### [facility] [address] [place] [address] Dr. Brenna Mann NEUT # 6.1 103/ul Normal 1.4-6.5 [facility] Comment on above: Performed By: #### 4 [id number] #### [facility] [address] [place] [address] Dr. Brenna Mann Neutrophils/100 WBC (Bld) 62.0 % Normal 43.0-75.0 [facility] Comment on above: Performed By: #### 4 [id number] #### [facility] [address] [place] [address] Dr. Brenna Mann Platelet mean volume (Bld) [Entitic vol] 12.0 fL Normal 9.5-13.5 [facility] Comment on above: Performed By: #### 4 [id number] #### [facility] [address] [place] [address] Dr. Brenna Mann PLT 191 103/ul Normal 150-450 [facility] Comment on above: Performed By: #### 4 [id number] #### [facility] [address] [place] [address] Dr. Brenna Mann RBC 4.55 106/ul Normal 4.20-5.40 [facility] Comment on above: Performed By: #### 4 [id number] #### [facility] [address] [place] [address] Dr. Brenna Mann WBC 9.8 103/ul Normal 4.0-11.0 [facility] Comment on above: Performed By: #### 4 [id number] #### [facility] [address] [place] [address] Dr. Brenna Mann PREG QUANT HCGon 08-21-2022 HCG QUANT 60767 mIU/mL Normal [facility] Comment on above: Performed By: #### P REGQNT #### [facility] [address] [place] [address] Dr. Brenna Mann HCG RANGE SEE BELOW Normal [facility] Comment on above: Result Comment: 5-50 0.2-1 WEEK 50-500 1-2 WEEKS 100-5,000 2-3 WEEKS 500-10,000 3-4 WEEKS 1,000-50,000 4-5 WEEKS 10,000-100,000 5-6 WEEKS 15,000-200,000 6-8 WEEKS 10,000-100,000 2-3 MONTHS Performed By: #### P REGQNT #### [facility] [address] [place] [address] Dr. Brenna Mann PROF 14(COMP METB)on 023 Albumin [Mass/Vol] 2.8 g/dL Critically low 3.4-5.0 [facility] Comment on above: Performed By: #### 4 [id number] #### [facility] [address] [address] [address] Brenna Mann Albumin/Globulin [Mass ratio] 0.6 {ratio} Normal [facility] Comment on above: Performed By: #### 4 [id number] #### [facility] [address] [place] [address] Dr. Brenna Mann ALP [Catalytic activity/Vol] 53 U/L Normal 46-116 [facility] Comment on above: Performed By: #### 4 [id number] #### [facility] [address] [address] [address] Brenna Mann ALT [Catalytic activity/Vol] 17 U/L Normal 14-59 [facility] Comment on above: Performed By: #### 4 [id number] #### [facility] [address] [place] [address] Dr. Brenna Mann Anion gap [Moles/Vol] 14.2 mmol/L Normal [facility] Comment on above: Performed By: #### 4 [id number] #### [facility] [address] [place] [address] Dr. Brenna Mann AST [Catalytic activity/Vol] 21 U/L Normal 15-37 [facility] Comment on above: Performed By: #### 4 [id number] #### [facility] [address] [place] [address] Dr. Brenna Mann Bilirubin [Mass/Vol] 0.1 mg/dL Critically low 0.2-1.0 [facility] Comment on above: Performed By: #### 4 [id number] #### [facility] [address] [address] [address] Brenna Mann Calcium [Mass/Vol] 8.5 mg/dL Normal 8.5-10.1 [facility] Comment on above: Performed By: #### 4 [id number] #### [facility] [address] [address] [address] Brenna Mann Chloride [Moles/Vol] 99 mmol/L Normal 98-107 [facility] Comment on above: Performed By: #### 4 [id number] #### [facility] [address] [address] [address] Brenna Mann CO2 [Moles/Vol] 26.2 mmol/L Normal 21.0-32.0 [facility] Comment on above: Performed By: #### 4 [id number] #### [facility] [address] [place] [address] Dr. Brenna Mann Creatinine [Mass/Vol] 0.38 mg/dL Critically low 0.55-1.02 [facility] Comment on above: Performed By: #### 4 [id number] #### [facility] [address] [place] [address] Dr. Brenna Mann EGFR-AF SLOVAK >60 Normal >=60 [facility] Comment on above: Performed By: #### 4 [id number] #### [facility] [address] [place] [address] Dr. Brenna Mann EGFR-NON AF SLOVAK >60 Normal >=60 [facility] Comment on above: Performed By: #### 4 [id number] #### [facility] [address] [address] [address] Brenna Mann Globulin (S) [Mass/Vol] 4.5 g/dL Normal [facility] Comment on above: Performed By: #### 4 [id number] #### [facility] [address] [address] [address] Brenna Mann Glucose [Mass/Vol] 106 mg/dL Normal 74-106 [facility] Comment on above: Performed By: #### 4 [id number] #### [facility] [address] [address] [address] Brenna Mann Potassium [Moles/Vol] 3.4 mmol/L Critically low 3.5-5.1 [facility] Comment on above: Performed By: #### 4 [id number] #### [facility] [address] [address] [address] Brenna Mann Protein [Mass/Vol] 7.3 g/dL Normal 6.4-8.2 [facility] Comment on above: Performed By: #### 4 [id number] #### [facility] [address] [place] [address] Dr. Brenna Mann Sodium [Moles/Vol] 136 mmol/L Normal 136-145 [facility] Comment on above: Performed By: #### 4 [id number] #### [facility] [address] [place] [address] Dr. Brenna Mann Urea nitrogen [Mass/Vol] 7.0 mg/dL Normal 7.0-18.0 [facility] Comment on above: Performed By: #### 4 [id number] #### [facility] [address] [place] [address] Dr. Brenna Mann Urea nitrogen/Creatinin e [Mass ratio] 18.4 mg/mg Normal [facility] Comment on above: Performed By: #### 4 [id number] #### [facility] [address] [place] [address] Dr. Brenna Mann US PREG TVon 08-11-2022 [...] by: LINO ARROYO Date: 2022-08-11 13:32 Normal [facility] PREG QUANT HCGon 07-18-2022 HCG QUANT 230 mIU/mL Normal [facility] Comment on above: Performed By: #### P REGQNT #### [facility] [address] [address] [address] Brenna Mann HCG RANGE SEE BELOW [facility] Comment on above: Result Comment: 5-50 0.2-1 WEEK 50-500 1-2 WEEKS 100-5,000 2-3 WEEKS 500-10,000 3-4 WEEKS 1,000-50,000 4-5 WEEKS 10,000-100,000 5-6 WEEKS 15,000-200,000 6-8 WEEKS 10,000-100,000 2-3 MONTHS Performed By: #### P REGQNT #### [facility] [address] [place] [address] Dr. Brenna Mann PREG QUANT HCGon 07-15-2022 HCG QUANT 52 mIU/mL [facility] Comment on above: Performed By: #### P REGQNT #### [facility] [address] [place] [address] Dr. Brenna Mann HCG RANGE SEE BELOW [facility] Comment on above: Result Comment: 5-50 0.2-1 WEEK 50-500 1-2 WEEKS 100-5,000 2-3 WEEKS 500-10,000 3-4 WEEKS 1,000-50,000 4-5 WEEKS 10,000-100,000 5-6 WEEKS 15,000-200,000 6-8 WEEKS 10,000-100,000 2-3 MONTHS Performed By: #### P REGQNT #### [facility] [address] [place] [address] Dr. Brenna Mann PAP ACOG PANEL 2: 30 to 65on 07-14-2022 . . [facility] Comment on above: Result Comment: Perf ormed at: [facility] Performed By: #### [id number] #### [facility] [address] [place] [address] Dr. Brenna Mann Age Gdln ACOG Testing 30-[address] [facility] Comment on above: Performed By: #### [id number] #### [facility] [address] [address] [address] Brenna Mann DIAGNOSIS: Comment Normal [facility] Comment on above: Result Comment: NEGA TIVE FOR INTRAEPITHELIAL LESION OR MALIGNANCY. Performed at: [facility] Performed By: #### 4 [id number] #### [facility] [address] [address] [address] Brenna Mann HPV Aptima Negative Normal Negative [facility] Comment on above: Result Comment: This nucleic acid amplification test detects fourteen high-risk HPV types (16,18,31,33,35,39,45,51,52,56,58,59,66,68) without differentiation. Performed at: =G Performed By: #### 4 [id number] #### [facility] [address] [place] [address] Dr. Brenna Mann HPV Genotype Reflex Comment Normal [facility] Comment on above: Result Comment: Crit eria not met, HPV Genotype not performed. Performed at: [facility] Performed By: #### 4 [id number] #### [facility] [address] [place] [address] Dr. Brenna Mann Methodology: Comment Normal [facility] Comment on above: Result Comment: This liquid based ThinPrep(R) pap test was screened with the use of an image guided system. Performed at: [facility] Performed By: #### [id number] #### [facility] [address] [place] [address] Dr. Brenna Mann Note: Comment Normal [facility] Comment on above: Result Comment: The Pap smear is a screening test designed to aid in the detection of premalignant and malignant conditions of the uterine cervix. It is not a diagnostic procedure and should not be used as the sole means of detecting cervical cancer. Both false-positive and false-negative reports do occur. . Performed at: WB Performed By: #### 4 [id number] #### [facility] [address] [place] [address] Dr. Brenna Mann Performed by: Comment Normal [facility] Comment on above: Result Comment: Iliana Castillo, Churn Operator Margarine (ASCP) Performed at: WB Performed By: #### 4 [id number] #### [facility] [address] [place] [address] Dr. Brenna Mann Specimen adequacy: Comment Normal [facility] Comment on above: Result Comment: Sati sfactory for evaluation. No endocervical component is identified. Performed at: WB Performed By: #### 4 [id number] #### [facility] [address] [place] [address] Dr. Brenna Mann QUANTIFERON TB GOLD PLUSon 0 03-01-2022 QuantiFERON Criteria Comment Normal [facility] Comment on above: Result Comment: Keshav tiFERON-TB [...] for the test. Performed By: #### 4 [id number] #### [facility] [address] [place] [address] Dr. Brenna Mann QuantiFERON Mitogen Value >10.00 Normal [facility] Comment on above: Performed By: #### 4 [id number] #### [facility] [address] [place] [address] Dr. Brenna Mann QuantiFERON Nil Value 0.02 IU/mL Normal [facility] Comment on above: Performed By: #### 4 [id number] #### [facility] [address] [place] [address] Dr. Brenna Mann QuantiFERON TB1 Ag Value 0.17 IU/mL Normal [facility] Comment on above: Performed By: #### 4 [id number] #### [facility] [address] [place] [address] Dr. Brenna Mann QuantiFERON TB2 Ag Value 0.19 IU/mL Normal [facility] Comment on above: Performed By: #### 4 [id number] #### [facility] [address] [place] [address] Dr. Brenna Mann QuantiFERON Incubation Incubation performed. Normal [facility] Comment on above: Performed By: #### 4 [id number] #### [facility] [address] [place] [address] Dr. Brenna Mann QuantiFERON-TB Gold Plus Negative Normal Negative [facility] Comment on above: Result Comment: No r esponse to M tuberculosis antigens detected. Infection with M tuberculosis is unlikely, but high risk individuals should be considered for additional testing (ATS/IDSA/CDC Clinical Practice Guidelines, 2017). The reference range is an Antigen minus Nil result of <0.35 IU/mL. Chemiluminescence immunoassay methodology Performed By: #### 4 [id number] #### [facility] [address] [place] [address] Dr. Brenna Mann HEPATITIS B SURFACE ANTIBODY , QUANTon 02-27-2022 Hepatitis B Surf AB Quant <3.1 Critically low Immunity>9.9 [facility] Comment on above: Result Comment: Stat us of Immunity Anti-HBs Level Inconsistent with Immunity 0.0 - 9.9 Consistent with Immunity >9.9 Performed By: #### H EPBSRF #### [facility] [address] [place] [address] Dr. Brenna Mann MMR IMMUNITYon 02-27-2022 Mumps Abs, IgG <9.0 Critically low Immune >10.9 [facility] Comment on above: Result Comment: Nega tive <9.0 Equivocal 9.0 - 10.9 Positive >10.9 A positive result generally indicates past exposure to Mumps virus or previous vaccination. Performed By: #### C BC #### [facility] [address] [place] [address] Dr. Brenna Mann Rubella Antibodies, IgG 1.29 index Normal Immune >0.99 [facility] Comment on above: Result Comment: Non- immune <0.90 Equivocal 0.90 - 0.99 Immune >0.99 Performed By: #### C BC #### [facility] [address] [place] [address] Dr. Brenna Mann Rubeola Ab, IgG 75.2 AU/mL Normal Immune >16.4 [facility] Comment on above: Result Comment: Nega tive <13.5 Equivocal 13.5 - 16.4 Positive >16.4 Presence of antibodies to Rubeola is presumptive evidence of immunity except when acute infection is suspected. Performed By: #### C BC #### [facility] [address] [place], [place] [address] Dr. Brenna Mann VARICELLA IGG ABon 2 Varicella Zoster IgG 199 index Normal Immune >165 [facility] Comment on above: Result Comment: Nega tive <135 Equivocal 135 - 165 Positive >165 A positive result generally indicates exposure to the pathogen or administration of specific immunoglobulins, but it is not indication of active infection or stage of disease. Performed By: #### V ARCEL #### [facility] [address] [place] [address] Dr. Brenna Mann Operative Reporton 2 Operative Report MR#: [id number] S [facility] Pt. Name: Kavon Chao Room #: 0C Discharge Date: Birthdate: 1990 OPERATIVE REPORT DATE OF SURGERY: 02/22/2022 SURGEON: Antione Walker M.D. RESIDENTIAL ROOFER HELPER: Cuco Castellon M.D. PREOPERATIVE DIAGNOSIS: Retinacular [...] A/Antione Walker M.D. Date Trans: 02/22/2022 08:47 A/mmo [id number] Normal [facility] POC GLUCOSE LABon 02-22-2022 Glucose [Mass/Vol] 77 mg/dL Normal 70-100 [facility] Comment on above: Performed By: #### 8 [id number] #### [facility] [address] POC SARS COV2 IDon 2 SARS-CoV-2 (COVID-19) RNA AD+probe Ql (Unsp spec) Negative Normal NEGATIVE [facility] Comment on above: Result Comment: ID N [...] Accreditation. Performed By: #### 3 1921 #### [facility] [place] [address], [facility] Telephone Encounteron 2020 Software Trainer Authentication Interface Message Text ??? Outbound call to mom ??? Wanted to follow up make sure rcvd autopsies ??? Left VM to call back Aleyda Marrufo [facility] Telephone Encounteron 2020 Software Trainer Authentication Interface Message Text ??? Spoke w/[facility] to get follow up on autopsy ??? Currently taking up to 60 days is correct ??? Reached at to mom @:[phone] ??? Spoke w/mom ??? Advised of what was stated that currently undergoing microscope process ??? Verbal understanding ??? Will follow up if she hasn't heard anything soon Aleyda Marrufo [facility] Telephone Encounteron 2020 Software Trainer Authentication Interface Message Text Outbound call to mom loss 09/14/2020 Concerned still haven't received autoscopy States that it been very difficult Provided additional support services Will follow back with me after 60 days if still no autoscopy Aleyda Marrufo [facility] BASIC METABOLIC PANELon 03-0 Anion gap [Moles/Vol] 15 mmol/L High 5-13 [facility] Comment on above: Performed By: #### L Jose, CH8 #### [facility] [address] [place] [address], Calcium [Mass/Vol] 8.2 mg/dL Low 8.4-10.4 [facility] Comment on above: Performed By: #### L Jose, CH8 #### [facility] [address] [place] [address], Chloride [Moles/Vol] 99 mmol/L Normal 97-111 [facility] Comment on above: Performed By: #### L Jose, CH8 #### [facility] [address] [place] [address], CO2 [Moles/Vol] 21 mmol/L Normal 21-30 [facility] Comment on above: Performed By: #### L Jose, CH8 #### [facility] [address] [place] [address], Creatinine [Mass/Vol] 0.49 mg/dL Low 0.50-1.10 [facility] Comment on above: Performed By: #### Louis Garcia, CH8 #### [facility] [address] [place] [address], ESTIMATED GFR (CKD-EPI) 130 mL/min/1.73sqm Normal >=60 [facility] Comment on above: Performed By: #### Louis Garcia, CH8 #### [facility] [address] [place] [address], Glucose [Mass/Vol] 146 mg/dL High 68-110 [facility] Comment on above: Performed By: #### Louis Garcia, CH8 #### [facility] [address] [place] [address], Potassium [Moles/Vol] 4.3 mmol/L Normal 3.3-5.3 [facility] Comment on above: Performed By: ###Eliecer Garcia, AISHA8 #### [facility] [address] [place] [address], Sodium [Moles/Vol] 131 mmol/L Low 135-148 [facility] Comment on above: Performed By: ###Eliecer Garcia, CH8 #### [facility] [address] [place] [address], Urea nitrogen [Mass/Vol] 9 mg/dL Normal 8-22 [facility] Comment on above: Performed By: ###Eliecer Garcia, AISHA8 #### [facility] [address] [place] [address], CBC WITH DIFFERENTIALon 03-0 Basophils (Bld) [#/Vol] 0.02 10*3/uL Normal 0.00-0.20 [facility] Comment on above: Performed By: #### Blessing VARGAS #### [facility] [address] [place] [address], Basophils/100 WBC (Bld) 0.1 % Normal <=1.9 [facility] Comment on above: Performed By: #### Blessing VARGAS #### [facility] [address] [place] [address], Eosinophils (Bld) [#/Vol] 0.03 10*3/uL Normal 0.00-0.70 [facility] Comment on above: Performed By: #### R BU #### [facility] [address] [place] [address], Eosinophils/100 WBC (Bld) 0.2 % Normal 0.1-4.0 [facility] Comment on above: Performed By: #### R BU #### [facility] [address] [place] [address], Erythrocyte distribution width (RBC) [Ratio] 15.3 % High 11.5-14.5 [facility] Comment on above: Performed By: #### R ALICIA #### [facility] [address] [place] [address], Hematocrit (Bld) [Volume fraction] 19.7 % Critically low 36.0-46.0 [facility] Comment on above: Performed By: #### R ALICIA #### [facility] [address] [place] [address], Hemoglobin (Bld) [Mass/Vol] 6.6 g/dL Critically low 12.0-15.0 [facility] Comment on above: Performed By: #### R BU #### [facility] [address] [place] [address], Lymphocytes (Bld) [#/Vol] 2.12 10*3/uL Normal 1.00-4.80 [facility] Comment on above: Performed By: #### R BU #### [facility] [address] [place] [address], Lymphocytes/100 WBC (Bld) 14.9 % Low 24.0-44.0 [facility] Comment on above: Performed By: #### R BU #### [facility] [address] [place] [address], MCH (RBC) [Entitic mass] 27.4 pg Normal 26.0-34.0 [facility] Comment on above: Performed By: #### R ALICIA #### [facility] [address] [place] [address], MCHC (RBC) [Mass/Vol] 33.5 g/dL Normal 32.0-35.9 [facility] Comment on above: Performed By: #### R BU #### [facility] [address] [place], [place], MCV (RBC) [Entitic vol] 82 fL Normal 80-100 [facility] Comment on above: Performed By: #### R BU #### [facility] [address] [place], [place], MONOCYTE DISTRIBUTION WIDTH Normal [facility] Comment on above: Performed By: #### R BU #### [facility] [address] [place], [place], Monocytes (Bld) [#/Vol] 1.34 10*3/uL High 0.20-1.00 [facility] Comment on above: Performed By: #### R BU #### [facility] [address] [place], [place], Monocytes/100 WBC (Bld) 9.4 % Normal 2.0-11.0 [facility] Comment on above: Performed By: #### R BU #### [facility] [address] [place], [place], Neutrophils (Bld) [#/Vol] 10.75 10*3/uL High 1.50-8.00 [facility] Comment on above: Performed By: #### R BU #### [facility] [address] [place], [place], Neutrophils/100 WBC (Bld) 75.4 % Normal 31.0-76.0 [facility] Comment on above: Performed By: #### R BU #### [facility] [address] [place], [place], Platelet mean volume (Bld) [Entitic vol] 10.1 fL Normal 7.5-11.2 [facility] Comment on above: Performed By: #### R BU #### [facility] [address] [place], [place], Platelets (Bld) [#/Vol] 131 10*3/uL Low 150-400 [facility] Comment on above: Performed By: #### R BU #### S [facility] [address] [place] [address], RBC (Bld) [#/Vol] 2.41 10*6/uL Low 4.00-5.20 [facility] Comment on above: Performed By: #### R BU #### [facility] [address] [place] [address], WBC (Bld) [#/Vol] 14.3 10*3/uL High 4.5-11.5 [facility] Comment on above: Performed By: #### R BU #### [facility] [address] [place] [address], COMPLETE BLOOD COUNTon 09-15 Erythrocyte distribution width (RBC) [Ratio] 15.5 % High 11.5-14.5 [facility] Comment on above: Performed By: #### 1 460, [id number] #### [facility] [address] [place] [address] [place], [place] Hematocrit (Bld) [Volume fraction] 23.5 % Low 36.0-46.0 [facility] Comment on above: Performed By: #### 1 460, [id number] #### [facility] [address] [place] [address] [place], [place] Hemoglobin (Bld) [Mass/Vol] 7.8 g/dL Low 12.0-15.0 [facility] Comment on above: Performed By: #### 1 460, [id number] #### [facility] [address] [facility] [place], [place] MCH (RBC) [Entitic mass] 28.1 pg Normal 26.0-34.0 [facility] Comment on above: Performed By: #### 1 460, [id number] #### [facility] [address] [facility] [place], [place] MCHC (RBC) [Mass/Vol] 33.2 g/dL Normal 32.0-35.9 [facility] Comment on above: Performed By: #### 1 460, [id number] #### [facility] [address] [facility] [place], [place] MCV (RBC) [Entitic vol] 85 fL Normal 80-100 [facility] Comment on above: Performed By: #### 1 4601, [id number] #### [facility] [address] [facility] [place], [place] Platelet mean volume (Bld) [Entitic vol] 9.9 fL Normal 7.5-11.2 [facility] Comment on above: Performed By: #### 1 4601, [id number] #### [facility] [address] [facility] [place], [place] Platelets (Bld) [#/Vol] 109 10*3/uL Low 150-400 [facility] Comment on above: Performed By: #### 1 4601, [id number] #### [facility] [address] [facility] [place], [place] RBC (Bld) [#/Vol] 2.77 10*6/uL Low 4.00-5.20 [facility] Comment on above: Performed By: #### 1 4601, [id number] #### [facility] [address] [facility] [place], [place] WBC (Bld) [#/Vol] 13.2 10*3/uL High 4.5-11.5 [facility] Comment on above: Performed By: #### 1 4601, [id number] #### [facility] [address] [facility] [place], [place] Erythrocyte distribution width (RBC) [Ratio] 15.2 % High 11.5-14.5 [facility] Comment on above: Performed By: #### C BDYFLD #### [facility] [address] [facility] [place], [place] Hematocrit (Bld) [Volume fraction] 17.7 % Critically low 36.0-46.0 [facility] Comment on above: Performed By: #### C BDYFLD #### [facility] [address] [facility] [place], [place] Hemoglobin (Bld) [Mass/Vol] 6.0 g/dL Critically low 12.0-15.0 [facility] Comment on above: Performed By: #### C BDYFLD #### [facility] [address] [facility] [place], [place] MCH (RBC) [Entitic mass] 27.9 pg Normal 26.0-34.0 [facility] Comment on above: Performed By: #### C BDYFLD #### [facility] [address] [facility] [address] [place], [place] MCHC (RBC) [Mass/Vol] 34.1 g/dL Normal 32.0-35.9 [facility] Comment on above: Performed By: #### C BDYFLD #### [facility] [address] [facility] [place], [place] MCV (RBC) [Entitic vol] 82 fL Normal 80-100 [facility] Comment on above: Performed By: #### C BDYFLD #### [facility] [address] [facility] [place], [place] Platelet mean volume (Bld) [Entitic vol] 10.1 fL Normal 7.5-11.2 [facility] Comment on above: Performed By: #### C BDYFLD #### [facility] [address] [facility] [place], [place] Platelets (Bld) [#/Vol] 113 10*3/uL Low 150-400 [facility] Comment on above: Performed By: #### C BDYFLD #### [facility] [address] [facility] [place], [place] RBC (Bld) [#/Vol] 2.17 10*6/uL Low 4.00-5.20 [facility] Comment on above: Performed By: #### C BDYFLD #### [facility] [address] [facility] [place], [place] WBC (Bld) [#/Vol] 13.4 10*3/uL High 4.5-11.5 [facility] Comment on above: Performed By: #### C BDYFLD #### [facility] [address] [facility] [place], [place] FIBRINOGENon 09-15-2020 FIBRINOGEN 372 mg/dL Normal 200-500 [facility] Comment on above: Performed By: #### 1 4601, [id number] #### [facility] [address] [place] [address] [place], [place] LDHon 09-15-2020 LD 247 IU/L High 50-220 [facility] Comment on above: Performed By: #### L Jose, CH8 #### [facility] [address] [place] [address], PARTIAL THROMBOPLASTIN TIMEo n 09-15-2020 aPTT Coag (Bld) [Time] 26 s Normal 25-37 [facility] Comment on above: Performed By: #### 1 4601, [id number] #### [facility] [address] [place] [address] [place], [place] PROTHROMBIN TIME AND INRon 0 09-15-2020 INR Coag (PPP) [Relative time] 0.98 {INR} Normal 0.90-1.10 [facility] Comment on above: Performed By: #### 1 4601, [id number] #### [facility] [address] [place] [address] [place], [place] PT Coag (PPP) [Time] 11.1 s Normal 9.7-12.9 [facility] Comment on above: Performed By: #### 1 4601, [id number] #### [facility] [address] [place] [address] [place], [place] RED BLOOD CELL COMPONENTon 0 09-15-2020 BB ORDER ITEM Product status info to follow Normal [facility] Comment on above: Performed By: #### R BU #### [facility] [address] [place] [address], RED BLOOD CELL UNIT STATUSon 09-15-2020 BLOOD PRODUCT CODE [id number] Normal [facility] Comment on above: Performed By: #### R BU #### [facility] [address] [place] [address], BLOOD PRODUCT DESCRIPTION Red Blood Cells Normal [facility] Comment on above: Performed By: #### Blessing VARGAS #### [facility] [address] [place] [address], BLOOD PRODUCT STATUS Released to avail Normal [facility] Comment on above: Performed By: #### R BU #### [facility] [address] [place], [place], BLOOD PRODUCT UNIT INFO [id number] Normal [facility] Comment on above: Performed By: #### R BU #### [facility] [address] [place], [place], BLOOD PRODUCT UNIT INFO [id number] Normal [facility] Comment on above: Performed By: #### R BU #### [facility] [address] [place], [place], BLOOD PRODUCT UNIT TYPE 6200 Normal [facility] Comment on above: Result Comment: A Po s Performed By: #### R BU #### [facility] [address] [place] [address], CROSSMATCH INTERPRETATION Compatible (E) Normal [facility] Comment on above: Performed By: #### R BU #### [facility] [address] [place] [address], ABO RH TYPEon 09-14-2020 ABO and Rh group Nom (Bld) Blood group A Rh(D) positive Normal [facility] Comment on above: Performed By: #### 1 4601, [id number] #### [facility] [address] [place] [address] [place], [place] CHROMOSOME ANALYSIS, BONE MA RROWon 09-14-2020 CHROMOSOME ANALYSIS, BONE MARROW Resulting Agency Address Site ID: AMD Name: [employer] Address: [address] [place] [address] [place] [address] Director: Shalom Dumont M.D.,PhD TNP TEST NOT PERFORMED Test cancelled for reorder purposes. Normal [facility] Comment on above: Performed By: #### 1 4601, [id number] #### [facility] [address] [place] [address] [place], [place] CHROMOSOME ANALYSIS, TISSUEo n 09-14-2020 CHROMOSOME ANALYSIS, TISSUE CHROMOSOMES, TISSUE: TNP *Test Not Performed. * *Tissue culture and chromosome * *analysis identified insufficient * *metaphases for full cytogenetic * *interpretation. This test code is * *replaced with a code that * *summarizes the culture results. * *A fee for tissue culture will be * *included for this specimen. * Normal [facility] Comment on above: Order Comment: Mc [employer] Agency Address Site ID: AMD Name: [employer] [place] Address: [address] [place] [address] [place], [place] Director: Shalom Dumont M.D.,PhD Performed By: #### 1 4601, [id number] #### [facility] [address] [place] [address] CHROMOSOME ANALYSIS, TISSUE CHROMOSOMES, TISSUE: see note Order ID: [id number] Specimen Type: Products of Conception Clinical Indication: IUFD RESULT: NORMAL FEMALE KARYOTYPE See NOTE INTERPRETATION: Chromosome analysis revealed normal G-band patterns within the limits of standard cytogenetic analysis. Please expect the results of any other concurrent study in a separate report. NOTE: This is a report on cultures set from chorionic villi. A tissue specimen ([id number]) did not provided outgrowth. NOMENCLATURE: 46,XX ASSAY INFORMATION: Method: G-Banding Cells Counted: 20 Colonies Counted: 0 Band Level: 450 Cells Analyzed: 5 Cells Karyotyped: 2 This test does not address genetic disorders that cannot be detected by standard cytogenetic methods, or rare events such as low level mosaicism or subtle rearrangements. Maternal cell contamination is not excluded. Lino Daly, Ph.D., [facility], [employer], Cytogenetics and Genomics, Electronic Signature: 10/06/2020 3:36 PM Normal [facility] Comment on above: Order Comment: The r eference range and other method performance specifications have not been established for this body fluid. The test must be integrated into the clinical context for interpretation. Performed By: #### G MARGIE BF #### [facility] [address] [place] [address], COMPLETE BLOOD COUNTon 09-14 Erythrocyte distribution width (RBC) [Ratio] 15.3 % High 11.5-14.5 [facility] Comment on above: Performed By: #### C BC #### [facility] [address] [place] [address], Hematocrit (Bld) [Volume fraction] 20.5 % Low 36.0-46.0 [facility] Comment on above: Performed By: #### C BC #### [facility] [address] [place] [address], Hemoglobin (Bld) [Mass/Vol] 7.0 g/dL Low 12.0-15.0 [facility] Comment on above: Performed By: #### C BC #### [facility] [address] [place] [address], MCH (RBC) [Entitic mass] 27.7 pg Normal 26.0-34.0 [facility] Comment on above: Performed By: #### C BC #### [facility] [address] [place] [address], MCHC (RBC) [Mass/Vol] 33.9 g/dL Normal 32.0-35.9 [facility] Comment on above: Performed By: #### C BC #### [facility] [address] [place] [address], MCV (RBC) [Entitic vol] 82 fL Normal 80-100 The [facility] Comment on above: Performed By: #### C BC #### [facility] [address] [place] [address], Platelet mean volume (Bld) [Entitic vol] 10.3 fL Normal 7.5-11.2 The [facility] Comment on above: Performed By: #### C BC #### [facility] [address] [place] [address], Platelets (Bld) [#/Vol] 123 10*3/uL Low 150-400 [facility] Comment on above: Performed By: #### C BC #### [facility] [address] [place] [address], RBC (Bld) [#/Vol] 2.51 10*6/uL Low 4.00-5.20 [facility] Comment on above: Performed By: #### C BC #### [facility] [address] [place] [address], WBC (Bld) [#/Vol] 18.1 10*3/uL High 4.5-11.5 [facility] Comment on above: Performed By: #### C BC #### [facility] [address] [place] [address], Erythrocyte distribution width (RBC) [Ratio] 15.4 % High 11.5-14.5 The [facility] Comment on above: Performed By: #### 1 460, [id number] #### [facility] [address] [facility] [place], [place] Hematocrit (Bld) [Volume fraction] 26.5 % Low 36.0-46.0 [facility] Comment on above: Performed By: #### 1 460, [id number] #### [facility] [address] [facility] [place], [place] Hemoglobin (Bld) [Mass/Vol] 8.7 g/dL Low 12.0-15.0 [facility] Comment on above: Performed By: #### 1 460, [id number] #### [facility] [address] [facility] [place], [place] MCH (RBC) [Entitic mass] 26.9 pg Normal 26.0-34.0 [facility] Comment on above: Performed By: #### 1 4601, [id number] #### [facility] [address] [facility] [place], [place] MCHC (RBC) [Mass/Vol] 32.7 g/dL Normal 32.0-35.9 [facility] Comment on above: Performed By: #### 1 460, [id number] #### [facility] [address] [facility] [place], [place] MCV (RBC) [Entitic vol] 82 fL Normal 80-100 [facility] Comment on above: Performed By: #### 1 460, [id number] #### [facility] [address] [facility] [place], [place] Platelet mean volume (Bld) [Entitic vol] 10.9 fL Normal 7.5-11.2 [facility] Comment on above: Performed By: #### 1 4601, [id number] #### [facility] [address] [facility] [place], [place] Platelets (Bld) [#/Vol] 235 10*3/uL Normal 150-400 [facility] Comment on above: Performed By: #### 1 4601, [id number] #### [facility] [address] [facility] [place], [place] RBC (Bld) [#/Vol] 3.22 10*6/uL Low 4.00-5.20 [facility] Comment on above: Performed By: #### 1 4601, [id number] #### [facility] [address] [facility] [place], [place] WBC (Bld) [#/Vol] 22.9 10*3/uL High 4.5-11.5 [facility] Comment on above: Performed By: #### 1 4601, [id number] #### [facility] [address] [place] [address] [place], [place] FIBRINOGENon 09-14-2020 FIBRINOGEN 312 mg/dL Normal 200-500 The [facility] Comment on above: Performed By: #### 1 4601, [id number] #### [facility] [address] [place] [address] [place], [place] FIBRINOGEN 329 mg/dL Normal 200-500 The [facility] Comment on above: Performed By: #### Blessing BU #### [facility] [address] [place] [address], LDHon 09-14-2020 LD 300 IU/L High 50-220 The [facility] Comment on above: Performed By: #### G MARGIE BF #### [facility] [address] [place], [place], PARTIAL THROMBOPLASTIN TIMEo n 09-14-2020 aPTT Coag (Bld) [Time] 20 s Low 25-37 The [facility] Comment on above: Performed By: #### 1 4601, [id number] #### [facility] [address] [facility] [place], [place] aPTT Coag (Bld) [Time] 27 s Normal 25-37 [facility] Comment on above: Performed By: #### R BU #### [facility] [address] [place] [address], PROTHROMBIN TIME AND INRon 0 09-14-2020 INR Coag (PPP) [Relative time] 1.02 {INR} Normal 0.90-1.10 [facility] Comment on above: Performed By: #### 1 4601, [id number] #### [facility] [address] [facility] [place], [place] PT Coag (PPP) [Time] 11.5 s Normal 9.7-12.9 [facility] Comment on above: Performed By: #### 1 4601, [id number] #### [facility] [address] [facility] [place], [place] INR Coag (PPP) [Relative time] 1.04 {INR} Normal 0.90-1.10 [facility] Comment on above: Performed By: #### R BU #### S [facility] [address] [place] [address], PT Coag (PPP) [Time] 11.8 s Normal 9.7-12.9 [facility] Comment on above: Performed By: #### R BU #### [facility] [address] [place] [address], Progress Noteson 09-14-2020 Software Trainer Authentication Interface Message Text To room to evaluate patient. Concern for tachysystole on tocometry, patient with persistent hypotension following epidural placement, with ongoing resuscitation from anesthesia. SVE: /-2. No evidence of blood on perineal pad. [...] Hutton MD, MPH PGY-3, Obstetrics and Gynecology [phone] Normal [facility] RED BLOOD CELL COMPONENTon 0 09-14-2020 BB ORDER ITEM Product status info to follow Normal [facility] Comment on above: Performed By: #### C BDYFLD #### [facility] [address] [facility] [place], [place] RED BLOOD CELL UNIT STATUSon 09-14-2020 BLOOD PRODUCT CODE [id number] Normal The [facility] Comment on above: Performed By: #### 1 4601, [id number] #### [facility] [address] [facility] [place], [place] BLOOD PRODUCT DESCRIPTION Red Blood Cells Normal The [facility] Comment on above: Performed By: #### 1 4601, [id number] #### [facility] [address] [facility] [place], [place] BLOOD PRODUCT STATUS Transfused Normal The [facility] Comment on above: Performed By: #### 1 4601, [id number] #### [facility] [address] [facility] [place], [place] BLOOD PRODUCT UNIT INFO [id number] Normal The [facility] Comment on above: Performed By: #### 1 4601, [id number] #### [facility] [address] [facility] [place], [place] BLOOD PRODUCT UNIT INFO [id number] Normal The [facility] Comment on above: Performed By: #### 1 4601, [id number] #### [facility] [address] [facility] [place], [place] BLOOD PRODUCT UNIT TYPE 5100 Normal [facility] Comment on above: Result Comment: O Po s Performed By: #### 1 4601, [id number] #### [facility] [address] [facility] [place], [place] CROSSMATCH INTERPRETATION Compatible (IS) Normal The [facility] Comment on above: Performed By: #### 1 4601, [id number] #### [facility] [address] [facility] [place], [place] AEROBIC BODY FLUID CULTUREon 09-13-2020 AEROBIC BODY FLUID CULTURE C BDYFLD: No Growth GRAM STAIN: This Gram Stain was performed on a Cytocentrifuged specimen. No Polymorphonuclear Leukocytes seen 3+ Squamous Epithelial Cells No organisms seen Normal The [facility] Comment on above: Performed By: #### C BDYFLD #### [facility] [address] [facility] [place], [place] BASIC METABOLIC PANELon 08-18 Anion gap [Moles/Vol] 18 mmol/L High 5-13 The [facility] Comment on above: Performed By: #### Josselin MARGIE BF #### [facility] [address] [place] [address], Calcium [Mass/Vol] 9.2 mg/dL Normal 8.4-10.4 The [facility] Comment on above: Performed By: #### G MARGIE BF #### [facility] [address] [place] [address], Chloride [Moles/Vol] 101 mmol/L Normal 97-111 The [facility] Comment on above: Performed By: #### G MARGIE BF #### [facility] [address] [place] [address], CO2 [Moles/Vol] 21 mmol/L Normal 21-30 The [facility] Comment on above: Performed By: #### G MARGIE BF #### [facility] [address] [place] [address], Creatinine [Mass/Vol] 0.37 mg/dL Low 0.50-1.10 The [facility] Comment on above: Performed By: #### G MARGIE BF #### [facility] [address] [place] [address], ESTIMATED GFR (CKD-EPI) 143 mL/min/1.73sqm Normal >=60 [facility] Comment on above: Performed By: #### Josselin HANSON BF #### [facility] [address] [place] [address], Glucose [Mass/Vol] 78 mg/dL Normal 68-110 [facility] Comment on above: Performed By: #### Josselin HANSON BF #### [facility] [address] [place] [address], Potassium [Moles/Vol] 4.2 mmol/L Normal 3.3-5.3 [facility] Comment on above: Performed By: #### Josselin HANSON BF #### [facility] [address] [place] [address], Sodium [Moles/Vol] 136 mmol/L Normal 135-148 [facility] Comment on above: Performed By: #### Josselin HANSON BF #### [facility] [address] [place] [address], Urea nitrogen [Mass/Vol] 4 mg/dL Low 8-22 [facility] Comment on above: Performed By: #### Josselin HANSON BF #### [facility] [address] [place] [address], CARDIOLIPIN ANTIBODY IGG/IGM on 09-13-2020 ACARD G < 1.6 Normal <20.0 [facility] Comment on above: Order Comment: Refer ence Range:Cardiolipin IgG AB : Negative :<20.0 GPL U/mL Positive :> or = to 20.0 GPL U/mLCardiolipin IgM AB : Negative :<20.0 MPL U/mL Positive :> or = to 20.0 MPL U/mL Performed By: #### Blessing BU #### [facility] [address] [place] [address], ACARD M 0.7 MPL U/mL Normal <20.0 [facility] Comment on above: Order Comment: Refer ence Range:Cardiolipin IgG AB : Negative :<20.0 GPL U/mL Positive :> or = to 20.0 GPL U/mLCardiolipin IgM AB : Negative :<20.0 MPL U/mL Positive :> or = to 20.0 MPL U/mL Performed By: #### R BU #### [facility] [address] [place] [address], CBC WITH DIFFERENTIALon 08-18 Basophils (Bld) [#/Vol] 0.03 10*3/uL Normal 0.00-0.20 [facility] Comment on above: Performed By: #### Josselin HANSON BF #### [facility] [address] [place] [address], Basophils/100 WBC (Bld) 0.3 % Normal <=1.9 [facility] Comment on above: Performed By: #### Josselin HANSON BF #### [facility] [address] [place] [address], Eosinophils (Bld) [#/Vol] 0.04 10*3/uL Normal 0.00-0.70 [facility] Comment on above: Performed By: #### Josselin HANSON BF #### [facility] [address] [place] [address], Eosinophils/100 WBC (Bld) 0.4 % Normal 0.1-4.0 [facility] Comment on above: Performed By: #### Josselin HANSON BF #### [facility] [address] [place] [address], Erythrocyte distribution width (RBC) [Ratio] 15.3 % High 11.5-14.5 [facility] Comment on above: Performed By: #### Josselin HANSON BF #### [facility] [address] [place] [address], Hematocrit (Bld) [Volume fraction] 37.8 % Normal 36.0-46.0 [facility] Comment on above: Performed By: #### Josselin HANSON BF #### [facility] [address] [place] [address], Hemoglobin (Bld) [Mass/Vol] 12.5 g/dL Normal 12.0-15.0 [facility] Comment on above: Performed By: #### Josselin HANSON BF #### [facility] [address] [place], [place], Lymphocytes (Bld) [#/Vol] 2.28 10*3/uL Normal 1.00-4.80 The [facility] Comment on above: Performed By: #### Josselin MARGIE BF #### [facility] [address] [place], [place], Lymphocytes/100 WBC (Bld) 22.1 % Low 24.0-44.0 [facility] Comment on above: Performed By: #### Josselin MARGIE BF #### [facility] [address] [place], [place], MCH (RBC) [Entitic mass] 27.2 pg Normal 26.0-34.0 [facility] Comment on above: Performed By: #### Josselin MARGIE BF #### [facility] [address] [place] [address], MCHC (RBC) [Mass/Vol] 33.2 g/dL Normal 32.0-35.9 The [facility] Comment on above: Performed By: #### Josselin MARGIE BF #### [facility] [address] [place] [address], MCV (RBC) [Entitic vol] 82 fL Normal 80-100 The [facility] Comment on above: Performed By: #### Josselin MARGIE BF #### [facility] [address] [place] [address], MONOCYTE DISTRIBUTION WIDTH Normal The [facility] Comment on above: Performed By: #### Josselin MARGIE BF #### [facility] [address] [place], [place], Monocytes (Bld) [#/Vol] 0.77 10*3/uL Normal 0.20-1.00 The [facility] Comment on above: Performed By: #### G MARGIE BF #### [facility] [address] [place] [address], Monocytes/100 WBC (Bld) 7.4 % Normal 2.0-11.0 The [facility] Comment on above: Performed By: #### Josselin MARGIE BF #### [facility] [address] [place] [address], Neutrophils (Bld) [#/Vol] 7.21 10*3/uL Normal 1.50-8.00 [facility] Comment on above: Performed By: #### Josselin HANSON BF #### [facility] [address] [place] [address], Neutrophils/100 WBC (Bld) 69.9 % Normal 31.0-76.0 [facility] Comment on above: Performed By: #### Josselin HANSON BF #### [facility] [address] [place] [address], Platelet mean volume (Bld) [Entitic vol] 10.7 fL Normal 7.5-11.2 [facility] Comment on above: Performed By: #### Josselin HANSON BF #### [facility] [address] [place] [address], Platelets (Bld) [#/Vol] 160 10*3/uL Normal 150-400 [facility] Comment on above: Performed By: #### Josselin HANSON BF #### [facility] [address] [place] [address], RBC (Bld) [#/Vol] 4.61 10*6/uL Normal 4.00-5.20 [facility] Comment on above: Performed By: #### Josselin HANSON BF #### [facility] [address] [place] [address], WBC (Bld) [#/Vol] 10.3 10*3/uL Normal 4.5-11.5 [facility] Comment on above: Performed By: #### Josselin HANSON BF #### [facility] [address] [place] [address], CYTOMEGALOVIRUS ANTIBODY IGG on 09-13-2020 CMV G Reactive Abnormal Nonreactive [facility] Comment on above: Performed By: #### Devin BARCLAY G #### [facility] [address] [place] [address], CYTOMEGALOVIRUS ANTIBODY IGM on 09-13-2020 CMV M < 0.2 Normal [facility] Comment on above: Order Comment: Refer ence Range:Negative < or = to 0.8 AIEquivocal 0.9 - 1.0 AIPositive > or = to 1.1 AIThe magnitude of the result measured above the cut-off is not indicative of the total amount of the antibodies detected. The following results were obtained with the [employer] 2200 CMV IgM test. Results obtained from other manufacturers' assay methods may not be used interchangeably. Performed By: #### C BDYFLD #### [facility] [address] [place] [address] HEMOGLOBIN ELUTIONon 0 09-13-2020 CELL/ RHIG COMMENTS Detected Normal [facility] Comment on above: Performed By: #### G MARGIE BF #### [facility] [address] [place] [address], HEMOGLOBIN ELUTION 0.00 % Normal <=0.00 The [facility] Comment on above: Performed By: #### G MARGIE BF #### [facility] [address] [place] [address], TOTAL MLS OF CELLS 0.00 Normal <=0.00 The [facility] Comment on above: Performed By: #### G MARGIE BF #### [facility] [address] [place] [address], FIBRINOGENon 09-13-2020 FIBRINOGEN 541 mg/dL High 200-500 The [facility] Comment on above: Performed By: #### G MARGIE BF #### [facility] [address] [place] [address], FLUID CELL COUNTon Clarity (U) Cloudy Normal [facility] Comment on above: Order Comment: The r eference range and other method performance specifications have not been established for this body fluid. The test must be integrated into the clinical context for interpretation. Performed By: #### G MARGIE BF #### [facility] [address] [place] [address], Color (U) Brown Normal [facility] Comment on above: Order Comment: The r eference range and other method performance specifications have not been established for this body fluid. The test must be integrated into the clinical context for interpretation. Performed By: #### G MARGIE BF #### [facility] [address] [place] [address], RBC (Bld) [#/Vol] 0.64804 10*6/uL Normal Th e [facility] Comment on above: Order Comment: The r eference range and other method performance specifications have not been established for this body fluid. The test must be integrated into the clinical context for interpretation. Performed By: #### G MARGIE BF #### [facility] [address] [place] [address], WBC (Bld) [#/Vol] 0.004 10*3/uL Normal [facility] Comment on above: Order Comment: The r eference range and other method performance specifications have not been established for this body fluid. The test must be integrated into the clinical context for interpretation. Performed By: #### G MARGIE BF #### [facility] [address] [place] [address], FLUID DIFFERENTIALon 021 CELLS COUNTED TOTAL # IN BLOOD 7 Normal The [facility] Comment on above: Performed By: #### G MARGIE BF #### [facility] [address] [place] [address], FLUID, LYMPHOCYTES 57 % Normal [facility] Comment on above: Performed By: #### G MARGIE BF #### S [facility] [address] [place] [address], FLUID, MONOCYTES/MACROPHA GES 14 % Normal [facility] Comment on above: Performed By: #### G MARGIE BF #### S PATHOLOGY LABORATORY [address] [place] [address], FLUID, NEUTROPHILS 29 % Normal [facility] Comment on above: Performed By: #### G MARGIE BF #### S [facility] LAB[facility]ATORY [address] [place] [address], GLUCOSE, BODY FLUIDon 2020 GLUCOSE, FLUID 18 mg/dL Normal [facility] Comment on above: Order Comment: The r eference range and other method performance specifications have not been established for this body fluid. The test must be integrated into the clinical context for interpretation. Performed By: #### G MARGIE BF #### S [facility]AT[facility] [address] [place] [address], HEMOGLOBIN A1Con 09-13-2020 Glucose [Mass/Vol] 80 mg/dL Normal [facility] Comment on above: Order Comment: HbA1c of 5.7-6.4% have increased risk for diabetes and CV(Source :ADA 2014 Standard of Medical Care in Diabetes) Performed By: #### Blessing VARGAS #### S PATH[facility] LAB[facility]ATORY [address] [place] [address], HbA1c (Bld) [Mass fraction] 4.4 % Normal 4.0-5.6 [facility] Comment on above: Order Comment: HbA1c of 5.7-6.4% have increased risk for diabetes and CV(Source :ADA 2014 Standard of Medical Care in Diabetes) Performed By: #### Blessing VARGAS #### S PATH[facility] LABORATORY [address] [place] [address], HEPATIC FUNCTION PANELon Albumin [Mass/Vol] 2.7 g/dL Low 3.4-5.1 [facility] Comment on above: Performed By: #### Louis Garcia, CH8 #### [facility] PATHOLOGY LABORATORY [address] [place] [address], ALK 101 IU/L Normal 40-200 [facility] Comment on above: Performed By: #### Louis Garcia, CH8 #### [facility] PATHOLOGY LABORATORY [address] [place] [address], ALT [Catalytic activity/Vol] 18 U/L Normal 7-40 The [facility] Comment on above: Performed By: #### Louis Garcia, CH8 #### S PATH[facility] LABORATORY [address] [place] [address], AST [Catalytic activity/Vol] 8 U/L Normal 7-40 The [facility] Comment on above: Result Comment: Hemo lysis present Performed By: #### Louis Garcia, CH8 #### S PATH[facility] LAB[facility]ATORY [address] [place] [address], Bilirubin [Mass/Vol] 1.9 mg/dL High 0.1-1.5 [facility] Comment on above: Performed By: #### Louis Garcia, CH8 #### S PATH[facility] LABORATORY [address] [place] [address], Bilirubin.direct [Mass/Vol] 0.80 mg/dL High 0.10-0.30 [facility] Comment on above: Performed By: #### L Jose CH8 #### S PATH[facility]Y LABORATORY [address] [place] [address], Protein [Mass/Vol] 5.8 g/dL Low 6.2-8.3 [facility] Comment on above: Performed By: #### Louis Garcia, CH8 #### [facility] PATHOLOGY LABORATORY [address] [place] [address], HEPATITIS B SURFACE ANTIGENo n 09-13-2020 HBSAG Non-Reactive Normal Non-Reactive [facility] Comment on above: Performed By: #### H BSAG #### [facility] PATHOLOGY LABORATORY [address] [place] [address], HEPATITIS C ANTIBODYon 09-13 HCV Non-Reactive Normal Nonreactive The [facility] Comment on above: Performed By: #### 1 4601, [id number] #### [facility] Pathology [address] [place] [address] HIV1 HIV2 AGAB SCRNon 2020 HIV AG-AB SCREEN Non-Reactive Normal Non-Reactive The [facility] Comment on above: Order Comment: HIV I nformation: ???[place] Rev. code 3701.243(E):This information has been disclosed [...] test. Performed By: #### R BU #### [facility] PATHOLOGY LABORATORY [address] [place] [address], LDHon 09-13-2020 LD 501 IU/L High 50-220 [facility] Comment on above: Result Comment: Hemo lysis present Performed By: #### C BDYFLD #### [facility] [address] [facility] [address] [place], [place] LUPUS ANTICOAGULANT PANELon 09-13-2020 [place] Negative Normal Negative The [facility] Comment on above: Order Comment: [facility] Agency Address Site ID: AMD Name: [employer] [facility] Address: [address] [place] [address] Dr [place], [place] Director: Shalom Dumont M.D.,PhD Performed By: #### 1 4601, [id number] #### [facility] Pathology [address] [facility] [place], [place] NOVEL CORONAVIRUS (COVID-19) on 09-13-2020 SARS-CoV-2 (COVID-19) RNA AD+probe Ql (Unsp spec) Not detected Normal Not Detected [facility] Comment on above: Order Comment: This test is intended for use only under Emergency Use Authorization (EUA). This test was developed, and its performance characteristics determined by [facility] [employer] which is certified under CLIA as qualified to perform high complexity clinical laboratory testing. Result Comment: This assay was performed using [employer] RTPCR technology. Performed By: #### 1 4601, [id number] #### [facility] Pathology [address] [place] [address] [place], [place] PARTIAL THROMBOPLASTIN TIMEo n 09-13-2020 aPTT Coag (Bld) [Time] 29 s Normal 25-37 The [facility] Comment on above: Performed By: #### 1 4601, [id number] #### [facility] Pathology [address] [facility] [place], [place] PARVOVIRUS B-19 ANTIBODIESon 09-13-2020 PARVOVIRUS B19 IGG 5.1 High <0.9 The [facility] Comment on above: Order Comment: [facility] Agency Address Site ID: AMD Name: [employer] [facility] Address: [address] [place] [address] Dr [place], [place] Director: Shalom Dumont M.D.,PhD Performed By: #### C BDYFLD #### [facility] Pathology [address] [facility] [place], [place] PARVOVIRUS B19 IGM 0.1 Normal <0.9 [facility] Comment on above: Order Comment: Mc rapp Agency Address Site ID: [id number] Name: [employer] [place] Address: [address] [place] [address] [place] [address] Director: Shalom Dumont M.D.,PhD Result Comment: Reference [...] PCR. Performed By: #### C BDYFLD #### [facility] [address] [facility] [address] [place], [place] PROTHROMBIN TIME AND INRon 0 09-13-2020 INR Coag (PPP) [Relative time] 0.95 {INR} Normal 0.90-1.10 [facility] Comment on above: Performed By: #### 1 4601, [id number] #### [facility] [address] [facility] [place], [place] PT Coag (PPP) [Time] 10.7 s Normal 9.7-12.9 [facility] Comment on above: Performed By: #### 1 4601, [id number] #### [facility] Pathology [address] [facility] [place], [place] RUBELLAon 09-13-2020 RUB 13.0 IU/mL Normal [facility] Comment on above: Order Comment: Nonre [...] IgG EIA assay. Values obtained with different photogrammetry airplane pilot???s assay methods may not be used interchangeably. Performed By: #### C BDYFLD #### [facility] Pathology [address] [place] [address] [place], [place] RUBELLA INTERPRETATION Equivocal Normal The [facility] Comment on above: Order Comment: [...] IgG EIA assay. Values obtained with different photogrammetry airplane pilot???s assay methods may not be used interchangeably. Performed By: #### C BDYFLD #### [facility] Pathology [address] [place] [address] [place], [place] SYPHILIS WITH CONFIRMATIONon 09-13-2020 SYPHILIS TOTAL (IGG/IGM) Non-Reactive Normal Non-Reactive [facility] Comment on above: Order Comment: No Se rologic evidence of syphilis.A nonreactive result does not exclude the possibility of exposure to or infection with T. pallidum. Antibodies may be at low or undetectable levels in incubating or early primary disease and in some clinical conditions. Performed By: #### R BU #### S PATHOLOGY LABORATORY [address] [place] [address], TPPA Normal The [facility] Comment on above: Order Comment: No Se rologic evidence of syphilis.A nonreactive result does not exclude the possibility of exposure to or infection with T. pallidum. Antibodies may be at low or undetectable levels in incubating or early primary disease and in some clinical conditions. Performed By: #### R BU #### S PATHOLOGY LABORATORY [address] [place] [address], T4 BINDING GLOBULINon 2020 THYROXINE BINDING GLOBULIN 45.8 mcg/mL High 13.5-30.9 The [facility] Comment on above: Order Comment: Mc rapp Agency Address Site ID: AMD Name: [employer] [place] Address: [address] [place] [address] Dr [place], [place] Director: Shalom Dumont M.D.,PhD Result Comment: To convert to nmol/L, multiply the result by 18.5. Performed By: #### C BDYFLD #### [facility] [address] [place] [address] Dr [place], [place] THYROXINE (T4), FREEon 09-13 T4 F 0.69 ng/dL Normal 0.45-1.80 [facility] Comment on above: Performed By: #### 1 4601, [id number] #### [facility] Pathology [address] [place] [address] [place], [place] TOTAL PROTEIN WITH CREATININ E, RANDOM URINEon 09-13-2020 CREATININE, URINE 20 mg/dL Normal 10-300 [facility] Comment on above: Performed By: #### 1 4601, [id number] #### [facility] Pathology [address] [place] [address] [place], [place] TOTAL PROTEIN, URINE < 6 Normal <=100 [facility] Comment on above: Performed By: #### 1 4601, [id number] #### [facility] Pathology [address] [place] [address] [place], [place] TP/CREAT RATIO < 300 High <=164 [facility] Comment on above: Performed By: #### 1 4601, [id number] #### [facility] Pathology [address] [place] [address] [place], [place] TOX SCREEN W/CONFIRM - OB/GY Non 09-13-2020 ALCOHOL - TOX W/ CONF Negative Normal Cutoff: 10 [facility] Comment on above: Order Comment: Scree n results are reported as positive (at or above the cutoff) or negative (below the cutoff).The GC/MS testing (if applicable) was developed and its performance characteristics determined by The [facility] in a manner consistent with CLIA requirements. This test has not been cleared or approved by the U.S. Food and Drug Administration; however, the FDA has determined that such clearance or approval is not necessary. Performed By: #### C BDYFLD #### [facility] [address] [facility] [place], [place] AMPH CL Negative Normal Cutoff: 1000 [facility] Comment on above: Order Comment: Scree n results are reported as positive (at or above the cutoff) or negative (below the cutoff).The GC/MS testing (if applicable) was developed and its performance characteristics determined by [facility] in a manner consistent with CLIA requirements. This test has not been cleared or approved by the U.S. Food and Drug Administration; however, the FDA has determined that such clearance or approval is not necessary. Performed By: #### C BDYFLD #### [facility] [address] [facility] [place], [place] CRISTAL CL Negative Normal Cutoff: 200 The [facility] Comment on above: Order Comment: Scree n results are reported as positive (at or above the cutoff) or negative (below the cutoff).The GC/MS testing (if applicable) was developed and its performance characteristics determined by The [facility] in a manner consistent with CLIA requirements. This test has not been cleared or approved by the U.S. Food and Drug Administration; however, the FDA has determined that such clearance or approval is not necessary. Performed By: #### C BDYFLD #### [facility] [address] [facility] [place], [place] BENZO CL Negative Normal Cutoff: 200 The [facility] Comment on above: Order Comment: Scree n results are reported as positive (at or above the cutoff) or negative (below the cutoff).The GC/MS testing (if applicable) was developed and its performance characteristics determined by The [facility] in a manner consistent with CLIA requirements. This test has not been cleared or approved by the U.S. Food and Drug Administration; however, the FDA has determined that such clearance or approval is not necessary. Performed By: #### C BDYFLD #### [facility] [address] [place], [place] COCAINE CL- TOX W/ CONF Negative Normal Cutoff: 300 The [facility] Comment on above: Order Comment: Scree n results are reported as positive (at or above the cutoff) or negative (below the cutoff).The GC/MS testing (if applicable) was developed and its performance characteristics determined by The [facility] in a manner consistent with CLIA requirements. This test has not been cleared or approved by the U.S. Food and Drug Administration; however, the FDA has determined that such clearance or approval is not necessary. Performed By: #### C BDYFLD #### [facility] [address] [facility] [place], [place] FENTANYL Negative Normal Cutoff: 1 [facility] Comment on above: Order Comment: Scree n results are reported as positive (at or above the cutoff) or negative (below the cutoff).The GC/MS testing (if applicable) was developed and its performance characteristics determined by [facility] in a manner consistent with CLIA requirements. This test has not been cleared or approved by the U.S. Food and Drug Administration; however, the FDA has determined that such clearance or approval is not necessary. Performed By: #### C BDYFLD #### [facility] [address] [facility] [place], [place] METH CL Negative Normal Cutoff: 300 [facility] Comment on above: Order Comment: Scree n results are reported as positive (at or above the cutoff) or negative (below the cutoff).The GC/MS testing (if applicable) was developed and its performance characteristics determined by [facility] in a manner consistent with CLIA requirements. This test has not been cleared or approved by the U.S. Food and Drug Administration; however, the FDA has determined that such clearance or approval is not necessary. Performed By: #### C BDYFLD #### [facility] [address] [facility] [place], [place] OPI CL Negative Normal Cutoff: 300 [facility] Comment on above: Order Comment: Scree n results are reported as positive (at or above the cutoff) or negative (below the cutoff).The GC/MS testing (if applicable) was developed and its performance characteristics determined by [facility] in a manner consistent with CLIA requirements. This test has not been cleared or approved by the U.S. Food and Drug Administration; however, the FDA has determined that such clearance or approval is not necessary. Performed By: #### C BDYFLD #### [facility] [address] [facility] [place], [place] OXYCODONE Negative Normal Negative, In Process [facility] Comment on above: Order Comment: Scree n results are reported as positive (at or above the cutoff) or negative (below the cutoff).The GC/MS testing (if applicable) was developed and its performance characteristics determined by [facility] in a manner consistent with CLIA requirements. This test has not been cleared or approved by the U.S. Food and Drug Administration; however, the FDA has determined that such clearance or approval is not necessary. Result Comment: Oxyc odone and metabolites of Oxycodone (Oxymorphone, Noroxycodone, and Noroxymorphone) are measured/detected in this assay method. Performed By: #### C BDYFLD #### [facility] [address] [facility] [place], [place] PCP CL Negative Normal Cutoff: 25 [facility] Comment on above: Order Comment: Scree n results are reported as positive (at or above the cutoff) or negative (below the cutoff).The GC/MS testing (if applicable) was developed and its performance characteristics determined by [facility] in a manner consistent with CLIA requirements. This test has not been cleared or approved by the U.S. Food and Drug Administration; however, the FDA has determined that such clearance or approval is not necessary. Performed By: #### C BDYFLD #### [facility] [address] [facility] [place], [place] THC CL - TOX W/ CONF Negative Normal Cutoff: 50 [facility] Comment on above: Order Comment: Scree n results are reported as positive (at or above the cutoff) or negative (below the cutoff).The GC/MS testing (if applicable) was developed and its performance characteristics determined by The [facility] in a manner consistent with CLIA requirements. This test has not been cleared or approved by the U.S. Food and Drug Administration; however, the FDA has determined that such clearance or approval is not necessary. Performed By: #### C BDYFLD #### [facility] [address] [facility] [place], [place] TOXOPLASMOSIS IGGon 09-13-19 21 TOXOPLASMOSIS IGG AB Negative Normal Negative [facility] Comment on above: Performed By: #### 1 4601, [id number] #### [facility] [address] [facility] [place], [place] TRIIODOTHYRONINE (T3)on 08-18 T3 140.9 ng/dL Normal 87.0-179.0 [facility] Comment on above: Performed By: #### L D, CH8 #### [facility] [address] [place], [place], TRIIODOTHYRONINE (T3), FREEo n 09-13-2020 FT3 3.0 pg/mL Normal 2.3-4.2 [facility] Comment on above: Performed By: #### C BDYFLD #### [facility] [address] [facility] [place], [place] TSHon 09-13-2020 TSH 1.638 uIU/mL Normal 0.450-5.330 [facility] Comment on above: Result Comment: Refe birgit range for women as applicable: First Trimester: 0. 050 to 3.700 uIU/mL Second Trimester: 0. 310 to 4.350 uIU/mL Third Trimester: 0. 410 to 5.180 uIU/mL Performed By: #### G MARGIE BF #### S PATHOLOGY LABORATORY [address] [place] [address], TYPE AND SCREENon 09-13-2020 ABO and Rh group Nom (Bld) Blood group A Rh(D) positive Normal [facility] Comment on above: Performed By: #### 1 4601, [id number] #### [facility] [address] [facility] [place], [place] ABO and Rh group Nom (Bld) No Previous Results Normal [facility] Comment on above: Performed By: #### 1 4601, [id number] #### [facility] [address] [facility] [place], [place] ABSC INT Negative Normal [facility] Comment on above: Performed By: #### 1 4601, [id number] #### [facility] [address] [facility] [place], [place] URIC ACIDon 09-13-2020 Urate [Mass/Vol] 6.0 mg/dL Normal 2.0-7.3 [facility] Comment on above: Performed By: #### C BDYFLD #### [facility] Pathology [address] [place], [place] CULTURE FOR BETA-HEMOLYTIC S TREPon 09-03-2020 CULTURE FOR BETA-HEMOLYTIC STREP C STREP: Negative for beta-hemolytic Streptococci group B. Normal [facility] Comment on above: Performed By: #### G MARGIE BF #### [facility] [address] [place], [place], [facility] Screen on 11-14-2018 Cholesterol in HDL mass conc 57 mg/dL Normal 40-59 [facility] Comment on above: Result Comment: ATP III [...] CHD Performed By: #### B WW #### [facility] [address] [place] [address] Cholesterol in LDL mass conc 108 mg/dL Normal 0-129 [facility] Comment on above: Result Comment: ATP III LDL Classification is Near Optimal. Performed By: #### B WW #### [facility] [address] [place] [address] Cholesterol mass conc 179 mg/dL Normal 0-199 [facility] Comment on above: Result Comment: ATP III Cholesterol classification is Desirable. Performed By: #### B WW #### [facility] [address] [place] [address] Triglyceride mass conc 72 mg/dL Normal 0-150 [facility] Comment on above: Result Comment: ATP III Triglycerides Classification is Normal. Effective: 08/23/2018 New reference range for this analyte has been established. Performed By: #### B WW #### [facility] [address] [place] [address] Glucose mass conc 83 mg/dL Normal 70-99 [facility] Comment on above: Result Comment: Effe ctive: 08/23/2018 New reference range for this analyte has been established. Performed By: #### B WW #### [facility] [address] [place] [id number] EVENT MONITORon 08-03-2018 EVENT MONITOR [facility] [address] [place] [address] EVENT MONITOR PATIENT NAME: KAVON RUBY : 1990 MED REC NO: [id number] ROOM: ACCOUNT NO: [id number] ADMIT DATE: 06/28/2018 PROVIDER: Erma Miles NAME [...] twice a day. ERMA MILES [id number] Doc#: [id number] CC: Jenna Bansal Normal [facility] CBC with Diffon 06-09-2018 Morphology Interp Cody (Bld) FEW Normal [facility] Comment on above: Result Comment: LARG E PLATELETS OCCASIONAL GIANT PLATELETS Performed By: #### Z FAST, CP, LIPR, MG, TSHX, VD25, CDP #### [facility] [address] [place] [address] Abs. Basophil 0.00 k/uL Normal 0.0-0.2 [facility] Comment on above: Performed By: #### Z FAST, CP, LIPR, MG, TSHX, VD25, CDP #### [facility] [address] [place] [address] Abs.Neutrophil (Seg) 4.90 k/uL Normal 2.5-7.0 [facility] Comment on above: Performed By: #### Zluy FAST, CP, LIPR, MG, TSHX, VD25, CDP #### [place] [address] Basophils/100 WBC (Bld) 0 % Normal 0-2 [facility] Comment on above: Performed By: #### Z FAST, CP, LIPR, MG, TSHX, VD25, CDP #### [place] [address] Eosinophils #/vol (Bld) 0.10 10*3/uL Normal 0.0-0.4 [facility] Comment on above: Performed By: #### Zuly FAST, CP, LIPR, MG, TSHX, VD25, CDP #### [place] [address] Eosinophils/100 WBC (Bld) 1 % Normal 0-5 [facility] Comment on above: Performed By: #### Zuly FAST, CP, LIPR, MG, TSHX, VD25, CDP #### [place] [address] Erythrocyte distribution width Ratio (RBC) 16.3 % High 12.1-15.2 [facility] Comment on above: Performed By: #### Zuly FAST, CP, LIPR, MG, TSHX, VD25, CDP #### [place] [address] Hematocrit Volume Fraction (Bld) 36.4 % Normal 36-46 [facility] Comment on above: Performed By: #### Z FAST, CP, LIPR, MG, TSHX, VD25, CDP #### [facility] [address] [place] [address] Hemoglobin mass conc (Bld) 11.7 g/dL Low 12.0-16.0 [facility] Comment on above: Performed By: #### Z FAST, CP, LIPR, MG, TSHX, VD25, CDP #### [facility] [address] [place] [address] Lymphocytes #/vol (Bld) 3.30 10*3/uL Normal 1.0-4.8 [facility] Comment on above: Performed By: #### Zuly FAST, CP, LIPR, MG, TSHX, VD25, CDP #### [facility] [address] [place] [address] Lymphocytes/100 WBC (Bld) 38 % Normal 15-40 [facility] Comment on above: Performed By: #### Zuly FAST, CP, LIPR, MG, TSHX, VD25, CDP #### [facility] [address] [place] [address] MCH Entitic mass (RBC) 24.3 pg Low 26-34 [facility] Comment on above: Performed By: #### Zuly FAST, CP, LIPR, MG, TSHX, VD25, CDP #### [facility] [address] [place] [address] MCHC mass conc (RBC) 32.1 g/dL Normal 31-37 [facility] Comment on above: Performed By: #### Z FAST, CP, LIPR, MG, TSHX, VD25, CDP #### [facility] [address] [place] [address] MCV Entitic volume (RBC) 75.6 fL Low 80-100 [facility] Comment on above: Performed By: #### Zuly FAST, CP, LIPR, MG, TSHX, VD25, CDP #### [facility] [address] [place] [address] Monocytes #/vol (Bld) 0.40 10*3/uL Normal 0.0-1.0 [facility] Comment on above: Performed By: #### Zuly FAST, CP, LIPR, MG, TSHX, VD25, CDP #### [facility] [address] [place] [address] Monocytes/100 WBC (Bld) 4 % Normal 4-8 [facility] Comment on above: Performed By: #### Zuly FAST, CP, LIPR, MG, TSHX, VD25, CDP #### [facility] [address] [place] [address] Neutrophil (Seg) 57 % Normal 47-75 [facility] Comment on above: Performed By: #### Zuly FAST, CP, LIPR, MG, TSHX, VD25, CDP #### [address] [place] [address] Platelets #/vol (Bld) 194 10*3/uL Normal 140-450 [facility] Comment on above: Performed By: #### Zuly FAST, CP, LIPR, MG, TSHX, VD25, CDP #### [facility] [address] [place] [address] RBC #/vol (Bld) 4.82 10*6/uL Normal 4.0-5.2 [facility] Comment on above: Performed By: #### Zuly FAST, CP, LIPR, MG, TSHX, VD25, CDP #### [facility] [address] [place] [address] WBC #/vol (Bld) 8.7 10*3/uL Normal 3.5-11.0 [facility] Comment on above: Performed By: #### Zuly FAST, CP, LIPR, MG, TSHX, VD25, CDP #### [facility] [address] [place] [address] Abs.Imm.Granulocyt e NOT REPORTED Normal 0.00-0.30 [facility] Comment on above: Performed By: #### Z FAST, CP, LIPR, MG, TSHX, VD25, CDP #### [address] [place] [address] Auto Diff Performed NOT REPORTED Normal [facility] Comment on above: Performed By: #### Z FAST, CP, LIPR, MG, TSHX, VD25, CDP #### [place] [address] Immature granulocytes #/vol (Bld) NOT REPORTED Normal 0 [facility] Comment on above: Performed By: #### Z FAST, CP, LIPR, MG, TSHX, VD25, CDP #### [place] [address] NRBC Automated NOT REPORTED Normal [facility] Comment on above: Performed By: #### Zuly FAST, CP, LIPR, MG, TSHX, VD25, CDP #### [place] [address] Platelet mean volume Entitic volume (Bld) NOT REPORTED Normal 6.0-12.0 [facility] Comment on above: Performed By: #### Zuly FAST, CP, LIPR, MG, TSHX, VD25, CDP #### [address] [place] [address] Platelets #/vol (Bld) NOT REPORTED Normal [facility] Comment on above: Performed By: #### Z FAST, CP, LIPR, MG, TSHX, VD25, CDP #### [place] [address] RBC morphology finding Nom (Bld) NOT REPORTED Normal [facility] Comment on above: Performed By: #### Z FAST, CP, LIPR, MG, TSHX, VD25, CDP #### [address] [place] [address] [phone] WBC Morphology NOT REPORTED Normal [facility] Comment on above: Performed By: #### Z FAST, CP, LIPR, MG, TSHX, VD25, CDP #### [facility] [address] [place] [address] [phone] Comp Metabolic Profon 2017 (cont.) Normal [facility] Comment on above: Result Comment: Aver age GFR for 20-29 years old: 116 mL/min/1.73sq m Chronic Kidney Disease: <60 mL/min/1.73sq m Kidney failure: <15 mL/min/1.73sq m eGFR calculated using average adult body mass. Additional eGFR calculator available at: http://www.MemberPass/multiple_crcl_2012.htm Performed By: #### Zuly FAST, CP, LIPR, MG, TSHX, VD25, CDP #### [facility] [address] [place] [address] [phone]) Albumin mass conc 4.3 g/dL Normal 3.5-5.2 [facility] Comment on above: Performed By: #### Zuly FAST, CP, LIPR, MG, TSHX, VD25, CDP #### [facility] [address] [place] [address] [phone]) Alkaline Phos 77 U/L Normal 35-104 [facility] Comment on above: Performed By: #### Z FAST, CP, LIPR, MG, TSHX, VD25, CDP #### [facility] [address] [place] [address] [phone] ALT enzyme act/vol 28 U/L Normal 5-33 [facility] Comment on above: Performed By: #### Zuly FAST, CP, LIPR, MG, TSHX, VD25, CDP #### [facility] [address] [place] [address] [phone] Anion gap molar conc 11 mmol/L Normal 9-17 [facility] Comment on above: Performed By: #### Z FAST, CP, LIPR, MG, TSHX, VD25, CDP #### [facility] [address] [place] [address] AST enzyme act/vol 25 U/L Normal <32 [facility] Comment on above: Performed By: #### Zuly FAST, CP, LIPR, MG, TSHX, VD25, CDP #### [facility] [address] [place] [address] Bilirubin Ql (U) 0.30 mg/dL Normal 0.30-1.20 [facility] Comment on above: Performed By: #### Z FAST, CP, LIPR, MG, TSHX, VD25, CDP #### [facility] [address] [place] [address] BUN/CRE Ratio 27 High 9-20 [facility] Comment on above: Performed By: #### Zuly FAST, CP, LIPR, MG, TSHX, VD25, CDP #### [facility] [address] [place] [address] Calcium mass conc 9.2 mg/dL Normal 8.6-10.4 [facility] Comment on above: Performed By: #### Zuly FAST, CP, LIPR, MG, TSHX, VD25, CDP #### [facility] [address] [place] [address] Chloride molar conc 102 mmol/L Normal 98-107 [facility] Comment on above: Performed By: #### Zuly FAST, CP, LIPR, MG, TSHX, VD25, CDP #### [facility] [address] [place] [address] CO2 molar conc 27 mmol/L Normal 20-31 [facility] Comment on above: Performed By: #### Zuly FAST, CP, LIPR, MG, TSHX, VD25, CDP #### [facility] [address] [place] [id number] Creatinine mass conc 0.45 mg/dL Low 0.50-0.90 [facility] Comment on above: Performed By: #### Z FAST, CP, LIPR, MG, TSHX, VD25, CDP #### [facility] [address] [place] [address] GFR, Amer >60 Normal >60 [facility] Comment on above: Performed By: #### Z FAST, CP, LIPR, MG, TSHX, VD25, CDP #### [facility] [address] [place] [address] GFR,non Amer >60 Normal >60 [facility] Comment on above: Performed By: #### Z FAST, CP, LIPR, MG, TSHX, VD25, CDP #### [facility] [address] [place] [address] Glucose mass conc 80 mg/dL Normal 70-99 [facility] Comment on above: Performed By: #### Zuly FAST, CP, LIPR, MG, TSHX, VD25, CDP #### [facility] [address] [place] [address] Potassium molar conc 4.1 mmol/L Normal 3.7-5.3 [facility] Comment on above: Performed By: #### Z FAST, CP, LIPR, MG, TSHX, VD25, CDP #### [facility] [address] [place] [address] Protein mass conc 8.1 g/dL Normal 6.4-8.3 [facility] Comment on above: Performed By: #### Z FAST, CP, LIPR, MG, TSHX, VD25, CDP #### [facility] [address] [place] [address] Sodium molar conc 140 mmol/L Normal 135-144 [facility] Comment on above: Performed By: #### Z FAST, CP, LIPR, MG, TSHX, VD25, CDP #### [facility] [address] [place] [address] Urea nitrogen mass conc 12 mg/dL Normal 6-20 [facility] Comment on above: Performed By: #### Z FAST, CP, LIPR, MG, TSHX, VD25, CDP #### [facility] [address] [place] [address] Albumin/Globulin mass ratio NOT REPORTED Normal 1.0-2.5 [facility] Comment on above: Performed By: #### Z FAST, CP, LIPR, MG, TSHX, VD25, CDP #### [facility] [address] [place] [address] Staging: NOT REPORTED Normal [facility] Comment on above: Performed By: #### Z FAST, CP, LIPR, MG, TSHX, VD25, CDP #### [facility] [address] [place] [phone] Lipid Profileon 06-09-2018 Cholesterol in HDL mass conc 66 mg/dL Normal >40 [facility] Comment on above: Result Comment: HDL Guidelines: <40 Undesirable 40-59 Borderline >59 Desirable Performed By: #### Z FAST, CP, LIPR, MG, TSHX, VD25, CDP #### [facility] [address] [place] [address] Cholesterol in LDL mass conc 133 mg/dL High 0-130 [facility] Comment on above: Result Comment: LDL Guidelines: <100 Desirable 100-129 Near to/above Desirable 130-159 Borderline >159 Undesirable Direct (measured) LDL and calculated LDL are not interchangeable tests. Performed By: #### Z FAST, CP, LIPR, MG, TSHX, VD25, CDP #### [facility] [address] [place] [address] Cholesterol mass conc 217 mg/dL High <200 [facility] Comment on above: Result Comment: Cholesterol Guidelines: <200 Desirable 200-240 Borderline >240 Undesirable Performed By: #### Z FAST, CP, LIPR, MG, TSHX, VD25, CDP #### [facility] [address] [place] [address] Cholesterol.total/ Cholesterol in HDL mass ratio 3.3 {ratio} Normal <5 [facility] Comment on above: Performed By: #### Z FAST, CP, LIPR, MG, TSHX, VD25, CDP #### [facility] [address] [place] [id number] [phone] Triglyceride mass conc 91 mg/dL Normal <150 [facility] Comment on above: Result Comment: Triglyceride Guidelines: <150 Desirable 150-199 Borderline 200-499 High >499 Very high Based on AHA Guidelines for fasting triglyceride, April 2012. Performed By: #### Z FAST, CP, LIPR, MG, TSHX, VD25, CDP #### [facility] [address] [place] [address] Cholesterol in VLDL mass conc NOT REPORTED Normal 08-15 [facility] Comment on above: Performed By: #### Z FAST, CP, LIPR, MG, TSHX, VD25, CDP #### [facility] [address] [place] [address] Magnesiumon 06-09-2018 Magnesium mass conc 2.3 mg/dL Normal 1.6-2.6 [facility] Comment on above: Performed By: #### Z FAST, CP, LIPR, MG, TSHX, VD25, CDP #### [facility] [address] [place] [address] Patient fasting?on 8 Patient fasting? YES Normal [facility] Comment on above: Performed By: #### Z FAST, CP, LIPR, MG, TSHX, VD25, CDP #### [facility] [address] [place] [phone] TSH w/reflex to FT4on 2017 Thyrotropin Qn 1.44 m[IU]/L Normal 0.30-5.00 [facility] Comment on above: Performed By: #### Z FAST, CP, LIPR, MG, TSHX, VD25, CDP #### [facility] [address] [place] [address] ([phone]) Vitamin D 25 OHon 06-09-2018 Vitamin D 25 [place] 13.1 ng/mL Low 30.0-100.0 [facility] Comment on above: Result Comment: Reference Range: Vitamin D status Range Deficiency <20 ng/mL Mild Deficiency 20-30 ng/mL Sufficiency 30-100 ng/mL Toxicity >100 ng/mL Performed By: #### Z FAST, CP, LIPR, MG, TSHX, VD25, CDP #### [facility] [address] [place] [address] [phone] XR CHEST (2 VW)on 06-09-2018 XR CHEST (2 VW) TWO-VIEW CHEST REASON FOR STUDY: Tachycardia. COMPARISON: None. REPORT: Trachea, mediastinum, heart size, diaphragm, and bony elements are intact. No effusion or nodule or pneumothorax is noted. The diaphragm and bony elements are unremarkable. IMPRESSION: Nonacute two-view chest. Interpreted by: Sourav Parisi DO Signed by: Sourav Parisi DO 06/09/18 Final result Normal [facility] Vital Signs Date Time Vital Sign Value Performing Clinician Facility 11-25-2024 14:15-0400 Body mass index (BMI) [Ratio] 40.44 kg/m2 ALOSKO Work Phone: [facility] 11-25-2024 14:15-0400 Body weight 110.22 kg ALOSKO Work Phone: [facility] 11-25-2024 14:15-0400 Diastolic blood pressure 82 mm[Hg] ALOSKO Work Phone: [facility] 11-25-2024 14:15-0400 Systolic blood pressure 130 mm[Hg] ALOSKO Work Phone: [facility] 03-21-2024 11:37-0400 Body mass index (BMI) [Ratio] 45.12 kg/m2 Luis Doug DO Work Phone: [facility] 03-21-2024 11:37-0400 Body weight 122.98 kg Luis Doug DO Work Phone: [facility] 03-21-2024 11:37-0400 Diastolic blood pressure 70 mm[Hg] Luis Doug DO Work Phone: [facility] 03-21-2024 11:37-0400 Systolic blood pressure 122 mm[Hg] Luis Doug DO Work Phone: [facility] 07-06-2023 16:25-0500 Body height 163.83 cm Alanis Zaidi Other [employer] Other 07-06-2023 16:25-0500 Body mass index (BMI) [Ratio] 37.85 kg/m2 Alanis Zaidi Other [employer] Other 07-06-2023 16:25-0500 Body temperature 100 [degF] Alanis Zaidi Other [employer] Other 07-06-2023 16:25-0500 Body weight 101.61 kg Alanis Zaidi Other [employer] Other 07-06-2023 16:25-0500 Respiratory rate 18 /min Alanis Zaidi Other [employer] Other 07-06-2023 16:25-0500 SaO2% (BldA) [Mass fraction] 99 % Alanis Zaidi Other [employer] Other 10-08-2022 03:06-0400 Body weight 125.6472 kg [facility] Comment on above: Performed By: #### CBC #### [facility] [address] [place] [address] [address] Brenna Mann Encounters Encounter Date Encounter Type Care Provider Facility Start: 11-25-2024 End: 11-25-2024 Bamboo flowsheet Luis Doug DO Work Phone: [facility] Start: 11-25-2024 End: 11-28-2024 Bamboo flowsheet Luis Doug DO Work Phone: [facility] Start: 11-25-2024 End: 11-28-2024 Clinisync Result Encounter Luis Doug DO Work Phone: [facility] Unsolicited Start: 11-25-2024 End: 11-25-2024 Patient encounter procedure Luis Doug DO Work Phone: [facility] Start: 11-25-2024 End: 11-25-2024 Periodic preventive med est patient 18-39 yrs Luis Doug DO Work Phone: [facility] Comment on above: Well woman exam with routine gynecological exam; Decreased libido; PMDD (premenstrual dysphoric disorder) (CMS/HCC) Start: 11-25-2024 End: 11-25-2024 ambulatory LUIS DOUG Not Available Start: 03-21-2024 End: 03-21-2024 Bamboo flowsheet Luis Doug DO Work Phone: [facility] Start: 03-21-2024 End: 03-21-2024 Bamboo flowsheet Luis Doug DO Work Phone: [facility] Start: 03-21-2024 End: 03-21-2024 Office outpatient visit 15 minutes Luis Doug DO Work Phone: [facility] Comment on above: PMDD (premenstrual d ysphoric disorder) (CMS/HCC) Start: 03-21-2024 End: 03-21-2024 ambulatory LUIS DOUG Not Available Start: 08-20-2023 Letter encounter Nabor payan DO Work Phone: [facility] Start: 07-06-2023 End: 07-06-2023 ambulatory Jenna Bansal Facility:[facility] Start: 07-06-2023 End: 07-06-2023 Patient encounter procedure KOTA Bansal Work Phone: [facility] Work Phone: Start: 07-06-2023 End: 07-06-2023 ambulatory KOTA Bansal Work Phone: [facility] Work Phone: Start: 07-06-2023 Office outpatient ne w 20 minutes Alanis Dejuan [facility] Start: 12-24-2022 End: 12-24-2022 ambulatory Jenna Bansal Facility:[facility] Start: 10-26-2022 End: 10-27-2022 ambulatory HOMER RAMOS [facility] Start: 10-26-2022 End: 10-26-2022 Subsequent hospital visit by physician Jenna Bansal Work Phone: [facility] Start: 10-06-2022 End: 10-07-2022 ambulatory LUIS [...] Facility:[facility] Start: 07-04-2022 End: 07-04-2022 ambulatory LUIS CAMACHO Facility: Start: 03-01-2022 Encounter for genera l adult medical examination without abnormal findings DR CHRISTOPHER [place] . [facility] Start: 02-26-2022 End: 02-27-[address] CHRISTOPHER HUNTER . Facility: Start: 02-26-2022 End: 02-27-2022 Encounter for general adult medical examination without abnormal findings DR CHRISTOPHER HUNTER . Facility: Start: 02-22-2022 End: 02-23-2022 ambulatory REFERRED SELF Facility:[facility] Start: 09-13-2020 End: 09-15-2020 Evaluation and management of inpatient JENNA LUCAS EDELMIRA Facility:[facility] Start: 09-04-2020 End: 09-10-2020 ambulatory UNKNOWN PROVIDER Facility:[facility] Start: 09-03-2020 End: 09-03-2020 ambulatory NABOR MARROQUIN Facility:[facility] Start: 12-05-2018 ambulatory Facility:C [id number] Start: 11-26-2018 End: 11-27-2018 Patient encounter procedure [facility] Start: 06-28-2018 End: 06-29-2018 Patient encounter procedure [facility] Start: 06-09-2018 End: 06-12-2018 Patient encounter procedure [facility] Start: 06-27-2016 End: 06-27-2016 Telephone encounter Ba Tellez MD Work Phone: [facility] Comment on above: Results Procedures Date Procedure Procedure Detail Performing Clinician Start: 11-25-2024 Urnls dip stick/tablet rgnt non-auto w/o micrscp Luis Doug DO Work Phone: Start: 11-25-2024 IGP,APTIMA HPV,AGE GDLN Luis Doug DO Work Phone: Start: 07-06-2023 X-ray of left ankle PA-C Jenna Bansal Work Phone: Start: 10-26-2022 Assay of homocysteine Homer Ramos MD Work Phone: Start: 07-04-2022 Microscopic observation [Identifier] in Cervix by Cyto stain Luis Camacho DO Work Phone: Start: 09-15-2020 H/O: section S/P section Nabor Garcia O Work Phone: Start: 11-26-2018 Ecg routine ecg w/least 12 lds w/i&r [facility] Start: 06-28-2018 Rem interrog pm/ldls pm <90 d phys/qhp [facility] Start: 06-28-2018 Echo tthrc r-t 2d w/wom-mode compl spec&colr d [facility] Start: 06-09-2018 EKG 12-LEAD [facility] Start: 06-09-2018 Radiologic exam chest 2 views [facility] Start: 06-09-2018 Assay of magnesium [facility] [place] Start: 06-09-2018 Blood count complete auto&auto difrntl wbc [facility] Start: 06-09-2018 Blood typing serologic abo [facility] Start: 06-09-2018 Comprehensive metabolic panel [facility] Start: 06-09-2018 Lipid panel [facility] Start: 06-09-2018 TSH WITH REFLEX [facility] Start: 06-09-2018 VITAMIN D 25 HYDROXY DAT [facility] Start: 01-11-2018 H/O: section Previous delivery, antepartum condition or complication Jenna Bansal Work Phone: Plan of Treatment Date Care Activity Detail Author Start: 2038 Shingles (RZV) Vacci ne (1 of 2) Shingles (RZV) Vaccine (1 of 2) [facility] Start: 03-01-2032 DTaP/Tdap/Td vaccine (2 - Td or Tdap) DTaP/Tdap/Td vaccine (2 - Td or Tdap) [facility] Start: 03-01-2032 Tetanus vaccination Tetanus (T d or Tdap) [facility] Start: 07-04-2027 Screening for malign ant neoplasm of cervix [facility] Start: 12-16-2025 End: 12-16-2025 Patient encounter procedure 12/16/2025 3:00 PM EDT Office Visit [facility] [address] [place] [address] Luis Camacho, DO [address] [place] [address] [facility] Start: 03-17-2025 Influenza vaccination Influenz a Vaccine (Season Ended) [facility] Start: 11-25-2024 End: 11-25-2024 Patient encounter procedure [facility] Comment on above: Arrived Start: 03-21-2024 End: 03-21-2024 Patient encounter procedure 03/21/2024 10:50 AM EDT Office Visit [facility] [address] [place] [address] Luis Camacho, DO [address] [place] [address] Arrived [facility] Comment on above: Arrived Start: 03-17-2024 Influenza vaccination Influenza Vacc ine (#1) [facility] Start: 03-17-2023 COVID-19 Vaccine ( season) COVID-19 Vaccine ( season) [facility] Start: 03-17-2023 Influenza vaccination Influenza Vacc ine (#1) [facility] Start: 11-16-2022 End: 11-16-2022 Patient encounter procedure 11/16/2022 Routine Perinatology [facility] Start: 09-01-2022 Hepatitis B vaccination Hepati tis B (HBV) Vaccine (3 of 3 - 19+ 3-dose series) [facility] Start: 05-12-2021 COVID-19 Vaccine (3 - Booster for Pfizer series) COVID-19 Vaccine (3 - Booster for Pfizer series) [facility] Start: 03-17-2021 Influenza vaccination INFLUENZ A (Season Ended) [facility] Start: 2018 HPV TESTING HPV TESTING [facility] Start: 2018 Screening for malign ant neoplasm of cervix [facility] Start: 2009 PAP TESTING PAP TESTING [facility] Start: 2009 Screening for malign ant neoplasm of cervix Pap smear [employer] Start: 11-12-2007 Urine microalbumin profile DTAP,TDAP,TD (1 - Tdap) [facility] Start: 2006 HEPATITIS C SCREENING HEPATITIS C [place] ELSA [facility] Start: 2006 Hepatitis C screening Hepatitis C co sandra [facility] [employer] Start: 2006 HIV SCREENING HIV SCREENING [facility] Start: 11-12-2003 HIV screening HIV screen [employer] Start: 2000 Adult depression screening assessment DEPRESSION SCREENING [facility] Start: 2000 Depression Screen Depression Screen [employer] Start: 1989 Varicella vaccine (1 of 2 - 2-dose childhood series) Varicella vaccine (1 of 2 - 2-dose childhood series) [employer] End: 10-26-2022 Alpha Fetoprotein, Maternal [employer] Phone: Comment on above: Once for 1 Occurrenc es starting 10/26/2022 until 10/26/2022 End: 10-26-2022 Antithrombin 3 Activity [employer] Phone: Comment on above: Once for 1 Occurrenc es starting 10/26/2022 until 10/26/2022 Cytology Cervical or vaginal smear or scraping study Pap Smear Pathology and Cytology Routine Well woman exam with routine gynecological exam Ordered: 11/25/2024 [employer] Work Phone: Comment on above: Ordered: 11/25/2024 End: 10-26-2022 Factor 5 Leiden [employer] Phone: Comment on above: Once for 1 Occurrenc es starting 10/26/2022 until 10/26/2022 Human papilloma viru s DNA [Presence] in Unspecified specimen by Probe with amplification HPV DNA probe, amplified Microbiology Routine Well woman exam with routine gynecological exam [facility]: Ordered: 11/25/2024 Lupus Anticoagulant Lupus Antico agulant Lab Routine 10/26/2022 5:16 PM EDT [employer] Phone: End: 10-26-2022 MTHFR mutation [employer] Work Phone: Comment on above: Once for 1 Occurrenc es starting 10/26/2022 until 10/26/2022 End: 10-26-2022 Protein C Functional [employer] Work Phone: Comment on above: Once for 1 Occurrenc es starting 10/26/2022 until 10/26/2022 End: 10-26-2022 Protein S Activity [employer] Work Phone: Comment on above: Once for 1 Occurrenc es starting 10/26/2022 until 10/26/2022 End: 10-26-2022 Reflex Order [employer] Work Phone: Comment on above: Once for 1 Occurrenc es starting 10/26/2022 until 10/26/2022 Immunizations Immunization Date Immunization Notes Care Provider [facility] 04-01-2022 hepatitis B vaccine, adult dosage [facility] Stetzer DO [facility] Influenza, injectabl e, Madin Rosario Canine Kidney, preservative free, quadrivalent Nabor Stetzer DO [facility] 04-01-2022 influenza virus vacc ine, unspecified formulation Nabor Stetzer DO Work Phone: [facility] 03-01-2022 hepatitis B vaccine, adult dosage Nabor Stetzer DO [facility] 03-01-2022 measles, mumps and r ubella virus vaccine Nabor Stetzer DO Work Phone: [facility] 03-01-2022 tetanus toxoid, redu chalino diphtheria toxoid, and acellular pertussis vaccine, adsorbed Nabor Stetzer DO Work Phone: [facility] 04-16-2017 influenza, injectabl e, quadrivalent, preservative free Nabor Stetzer DO Work Phone: [facility] 02-11-2013 HPV, unspecified formulation Nabor Noyolaer DO Work Phone: [facility] 10-15-2012 HPV, unspecified formulation Nabor Noyolaer DO Work Phone: [facility] 08-13-2012 HPV, unspecified formulation Nabor Noyolaer DO Work Phone: [facility] Payers Date Payer Category Payer Private Health Insurance [employer] [id number] 2019 Unknown [id number] 2018 Medicaid [employer] MEDICA[employer] HMO [id number] 2018-Present [phone] [address] [place] [address] Medicaid HMO [id number] 2017 Unknown [id number] 2016 [place] [id number] 2016-Present Medicaid [id number] 2015 Unknown HOSPITAL/MEDICAL GENERIC MEDICAL GENERIC [id number] 2015-Present Indemnity [id number]. [id number] 2015 Unknown [id number] 1988 Unknown [id number] 2.16.840.1.618421.3.579.2. 174 1988 Unknown [id number] 2.16.840.1.891570.3.579.2. 174 1988 Unknown [id number] 2.16.840.1.008652.3.579.2. 174 1988 Unknown [id number] 2.16.840.1.375713.3.579.2. 174 1988 Unknown [id number] 2.16.840.1.609068.3.579.2. 174 1988 Unknown [id number] 2.16.840.1.346663.3.579.2. 174 1988 Unknown [id number] 2.16.840.1.804117.3.579.2. 174 1988 Unknown [id number] 2.16.840.1.423452.3.579.2. 732 1988 Unknown [id number] 2.16.840.1.268853.3.579.2. 732 1988 Unknown [id number] 2.16.840.1.079636.3.579.2. 732 1988 Unknown [id number] 2.16.840.1.803975.3.579.2. 732 1988 Unknown [id number] 2.16.840.1.309890.3.579.2. 647 1988 Unknown [id number] 2.16.840.1.198317.3.579.2. 593 1988 Unknown [id number] 2.16.840.1.537563.3.579.2. 593 1988 Unknown [id number] 2.16.840.1.195745.3.579.2. 593 1988 Unknown [id number] 2.16.840.1.692170.3.579.2. 593 1988 Unknown [id number] 2.16.840.1.408891.3.579.2. 593 1988 Unknown [id number] 2.16.840.1.422912.3.579.2. 593 1988 Unknown [id number] 2.16.840.1.433988.3.579.2. 593 1988 Unknown [id number] 2.16.840.1.067623.3.579.2. 593 1988 Unknown [id number] 2.16.840.1.104207.3.579.2. 593 1988 Unknown [id number] 2.16.840.1.239729.3.579.2. 593 1988 Unknown [id number] 2.16840.1.417725.3.579.2. 593 1988 Unknown [id number] 2.16.840.1.187008.3.579.2. 727 1988 Unknown [id number] 2.16.840.1.191706.3.579.2. 175 1988 Unknown [id number] 2.16840.1.696232.3.579.2. 1259 1988 Unknown [id number] 2.16840.1.164215.3.579.2. 1259 1959 Self-pay 1959 Unknown [id number] 1959 Unknown [id number] 1959 Unknown [id number] Unknown [id number] 2.16.840.1.022731.3.579.2. 593 Unknown Regular Insurance [id number] Unknown [id number] 2.16.840.1.177925.3.579.2. 531 Unknown [id number] 2.16.840.1.463530.3.579.2. 531 Social History Date Type Detail Facility Start: 06-16-2016 End: 01-02-2023 Tobacco smoking status PAIS Never smoker [employer] Start: 06-16-2016 End: 10-26-2022 Alcohol intake Current non-drinker of alcohol (finding) [facility] Start: 1990 Sex Assigned At Not on file [facility] Start: 10-26-2022 End: 01-02-2023 Tobacco use and exposure Smokeless tobacco non-user [employer] Phone: Start: 07-02-2022 [employer] Phone: Start: 1990 Sex Assigned At Female F [facility] Start: 04-04-2023 End: 11-08-2023 Sex Assigned At [facility] [employer] Other Tobacco smoking status [email or web address] Tobacco smoking consumption unknown [facility] Start: 11-22-2023 End: 03-21-2024 Alcoholic beverage intake Lifetime non-drinker (finding) [facility] Start: 04-04-2023 End: 11-08-2023 History of Social function [facility] Start: 01-23-2023 Alcohol Comment caffeine: none [facility] Goals Date Patient Goal Desired Activity /State Personal health goal Clinical Notes 06-27-2016 to 11-25-2024 Alaina Grewal LPN - 11/25/2024 2:00 PM EDTSjanelle Grewal LPN - 03/21/2024 10:50 AM EDT Note Date & Type Note Facility 11-25-2024 History of Presen t illness Narrative Reason for Appointment: Patient ID: Kavon Chao is a 34 y.o. female who presents for Gynecologic Exam Patient presents today for Annual Exam. MEDICATIONS Current Outpatient Medications Medication Instructions desogestrel-ethinyl [...] Noted Axillary lump, right 01/24/2023 Clotting disorder ([facility]/HCC) 01/24/2023 Dyssomnia 01/24/2023 ventricular septal defect affecting [...] anomaly not found 01/11/2018 SVT (supraventricular tachycardia) ([facility]) 06/22/2018 Resolved Ambulatory Problems Diagnosis Date Noted No Resolved Ambulatory Problems Past Medical History: Diagnosis Date Depression ([facility]) Encounter for fertility planning Female pelvic pain demise, greater than 22 weeks, antepartum, fetus 1 Fibroid uterus Inability to sleep Miscarriage Obesity (BMI 30-39.9) 2010 Varicella zoster Castell teeth removed HISTORY PAST MEDICAL HISTORY SOCIAL HISTORY Past Medical History: Diagnosis Date Axillary lump, right Clotting disorder ([facility]) Depression ([facility]) Post traumatic Stress Encounter for fertility planning Female pelvic pain demise, greater than 22 weeks, antepartum, fetus 1 Fibroid uterus Inability to sleep Miscarriage Obesity (BMI 30-39.9) Pain and tenderness 2010 Varicella zoster Castell teeth removed Social History Tobacco Use Smoking [...] LOW TRANSVERSE X4 SECTION, LOW TRANSVERSE 02/21/2023 [facility] Lexapro 10mg one daily has stopped ; Post traumatic Stress Depression WISDOM TOOTH EXTRACTION wisdom teeth REVIEW OF SYSTEMS Review of Systems: Review of Systems All other systems reviewed and are negative. OBJECTIVE Objective: Physical Exam Constitutional: Appearance: Normal appearance. She is well-developed. Genitourinary: Vulva normal. Breasts: Breasts are soft. Right: Normal. Left: Normal. Cardiovascular: Rate and Rhythm: Normal rate and [...] nursing note reviewed. Exam conducted with a silverlight developer present. Vitals: Estimated body mass index is 40.44 kg/m as calculated from the following: Height as of 11/22/23: 5' 5 . Weight as of this encounter: 243 lb. BP: 130/82 Patient's last menstrual period was 2024 (exact date). ASSESSMENT & PLAN ICD-10-CM 1. Well woman exam with routine gynecological exam Z01.419 Pap Smear HPV DNA probe, amplified POCT urinalysis dipstick manually resulted 2. Decreased libido R68.82 3. PMDD (premenstrual dysphoric disorder) (CMS/[facility]) F32.81 Annual Exam: Patient presents today for an annual exam. Patient states she is doing well and has no complaints. Pap was obtained without difficulty. Patient did voiced decreased libido. Patient would like to see about natural forms or other control for PMDD. Portillo sent to [facility] to have mail order delivered to see if symptoms improve. Orders Placed This Encounter Procedures HPV DNA probe, amplified POCT urinalysis dipstick manually resulted Follow Up: Patient is to return in one year for annual unless needed otherwise. Documented by Alaina Grewal LPN on behalf of: Luis Camacho DO documented in this encounter [facility] 03-21-2024 History of Presen t illness Narrative [...] Noted Axillary lump, right 01/24/2023 Clotting disorder (CMS/HCC) 01/24/2023 Dyssomnia 01/24/2023 ventricular septal defect affecting antepartum care of mother 01/11/2018 Ganglion of left hand 02/07/2022 H/O macrosomia in in prior , currently , third trimester 01/11/2018 History of IUFD 01/24/2023 Intrauterine affecting management of mother 09/13/2020 Other antepartum hemorrhage, first trimester 01/24/2023 Other specified disorders of amniotic fluid and membranes, second trimester, not applicable or unspecified 01/24/2023 Pain and tenderness 01/24/2023 Pain in female pelvis 01/24/2023 Previous delivery, antepartum condition or complication 01/11/2018 Suspected anomaly not found 01/11/2018 SVT (supraventricular tachycardia) (CMS/HCC) 06/22/2018 Resolved Ambulatory Problems Diagnosis Date Noted No Resolved Ambulatory Problems Past Medical History: Diagnosis Date Depression ([facility]) Encounter for fertility planning Female pelvic pain demise, greater than 22 weeks, antepartum, fetus 1 Fibroid uterus Inability to sleep Miscarriage Obesity (BMI 30-39.9) 2010 Varicella zoster Castell teeth removed HISTORY PAST MEDICAL HISTORY SOCIAL HISTORY Past Medical History: Diagnosis Date Axillary lump, right Clotting disorder ([facility]) Depression ([facility]) Post traumatic Stress Encounter for fertility planning Female pelvic pain demise, greater than 22 weeks, antepartum, fetus 1 Fibroid uterus Inability to sleep Miscarriage Obesity (BMI 30-39.9) Pain and tenderness 2010 Varicella zoster Castell teeth removed Social History Tobacco Use Smoking [...] LOW TRANSVERSE X4 SECTION, LOW TRANSVERSE 02/21/2023 [facility] Lexapro 10mg one daily has [...] nursing note reviewed. Exam conducted with a silverlight developer present. Vitals: Estimated body mass index is 45.12 kg/m as calculated from the following: Height as of 11/22/23: 5' 5 . Weight as of this encounter: 271 lb 1.9 oz. BP: 122/70 No LMP recorded. ASSESSMENT & PLAN ICD-10-CM 1. PMDD (premenstrual dysphoric disorder) (CMS/HCC) F32.81 desogestrel-ethinyl estradiol ([employer]) 0.15-30 MG-MCG tablet [...] to start medication. Patient [facility] [place]. Patient to return to clinic for annual appointment and PRN. Documented by Alaina Grewal LPN on behalf of: Luis Camacho DO documented in this encounter [facility] 07-06-2023 Evaluation note Encounter Date Diagnosis Assessment [...] understanding and is agreeable to treatment plan [employer] Other 02-05-2023 NotePROCEDURE: [employer], 08/21/2022 5:31 PM EST CLINICAL INDICATIONS: Vaginal [...] Electronically authenticated by: JUNE AC Date: 2022-08-21 18:04[facility]05-04-2021 NoteOutreach team called pt to schedule post- visit. Pt informed that she has transferred care to another hospital system.[facility]03-24-2021 NoteDISCHARGE SUMMARY [address] [id number] Kavon Chao Date of : 1990 29 [...] of labor for intrauterine demise. Made slow meter changes records clerk course of 24h. Following epidural placement on HD#2, patient found to be symptomatically hypotensive and required ongoing management from anesthesia. Bedside evaluation at this time revealed cervical dilation of 5cm, minimal meter changes records clerk preceding 8 hours. On tocometry, tachysystole appreciate [...] emergently via section. section was performed on [address] Marroquin and resident Dr. [...] her routine visit in four weeks at [facility]. Discharge instructions included pelvic rest for six weeks and no heavy lifting greater than 10 pounds for six weeks. No future appointments. Carmen Hutton MD, MPH PGY-3, Obstetrics and GynecologyThe [facility] [id number] Miscellaneous Notes* Telephone Encounter - Britta Molina RN - 06/27/2016 10:29 AM EST Returned patient's call and informed her that labs that were drawn at an outside lab are unable to be released to [facility]. Patient verbalizes understanding. * Telephone Encounter - Rosa Coats - 06/27/2016 8:53 AM EST Kavon Curran called today. : 1990 Allergies: Adhesive Tape (Rosins) (home) Reason for call: patient calling asking if her external labs from [facility] could be released into [facility]. Patient last appointment: Visit date not found The patients preferred pharmacy has been captured for this encounter? not asked Rosa Maddoxr documented in this encounterHamden ClinicEvaluation noteNo assessment information availableSt. Vincent Hospital Work Phone: Evaluation note* Diagnosis PMDD (premenstrual dysphoric disorder) (CMS/HCC) Premenstrual tension syndromes documented [facility] Diagnosis Well woman exam with routine gynecological exam Routine gynecological examination Decreased libido PMDD (premenstrual dysphoric disorder) (CMS/HCC) Premenstrual tension syndromes documented in this encounter [facility] Narrative - Reported* Type Description Date Surgical History x2 Surgical History Oral surgery Hospitalization History See above [employer] Other Summary Purpose Family History No Family [...] section and content) DATE CREATED AUTHOR 11/20/2018 [facility] DATE CREATED AUTHOR AUTHOR'S ORGANIZ ATION 12/07/2018 [facility] DATE CREATED AUTHOR AUTHOR'S ORGANIZ ATION 08/20/2021 [facility] DATE CREATED AUTHOR AUTHOR'S ORGANIZ ATION 03/09/2022 [facility] DATE CREATED AUTHOR AUTHOR'S ORGANIZ ATION 10/09/2022 [facility] DATE CREATED AUTHOR AUTHOR'S ORGANIZ ATION 12/25/2022 [facility] DATE CREATED AUTHOR AUTHOR'S ORGANIZ ATION 02/16/2023 [facility] DATE CREATED AUTHOR AUTHOR'S ORGANIZ ATION 08/25/2023 [facility] DATE CREATED AUTHOR AUTHOR'S ORGANIZ ATION 11/26/[address] [facility] EP[employer] Source Comments (unrecognize d section and content) In the event this informatio n is protected by the Federal Confidentiality of Alcohol and Drug Abuse Patient Records regulations: The Federal rules restrict any use of the information to criminally investigate or prosecute any alcohol or drug abuse patient.[facility] Reason for Visit (unrecogniz ed section and content) Reason Onset Date Comments Results 06/27/2016 Reason Comments PMDD issues Reason Comments Gynecologic Exam Care Teams (unrecognized sec tion and content) Transportation Supervisor Relationship Specialty Start Date End Date Jenna Bansal [address] [place] [id number] PCP - General Family Medicine 12/14/17 Team Status: Active Member Role Status Dates Jenna Bansal PA-C Primary Care Provider Active Team Status: Inactive Member Role Status Dates Jenna Bansal PA-C Primary Care Provider Active Alanis Zaidi APRN Attending Provider Active Transportation Supervisor Relationship Specialty Start Date End Date Nabor Marroquin DO [address] [place] [id number] Physician Obstetrics/Gynecology 06/19/20 Duncan Nguyễn MD [address] [place] [phone] Physician Neuropathology 09/18/20 Yudy Agudelo MD [address] [place], [place] [id number] Resident Obstetrics/Gynecology 10/16/20 Transportation Supervisor Relationship Specialty Start Date End Date Christopher Hunter MD [address] [place] [address] PCP - General Family Medicine 12/16/22 Transportation Supervisor Relationship Specialty Start Date End Date Christopher Hunter MD [address] [place] [address] PCP - General Family Medicine 12/16/22 Transportation Supervisor Relationship Specialty Start Date End Date Christopher Hunter MD PCP - General Family Medicine 12/16/22 Transportation Supervisor Relationship Specialty Start Date End Date Christopher Hunter MD PCP - General Family Medicine 12/16/22 Transportation Supervisor Relationship Specialty Start Date End Date Christopher Hunter MD PCP - General Family Medicine 12/16/22 [...] BE BASED ON THE PRIMARY CLINICAL RECORDS. [employer] provides no warranty or guarantee of the accuracy or completeness of information in this document.
[2025-01-10 07:56] LABS: Basophils Percent Auto 0.3 % (0.2-2.0); Eosinophils Absolute Auto 0.1 10^3/uL (0.0-0.7); Eosinophils Percent Auto 1.3 % (0.9-7.0); Hematocrit 36.7 % (36.0-48.0); Hemoglobin 11.7 g/dL (12.0-16.0); Immature Granulocytes Abs Auto 0.03 10^3/uL (0.00-0.03); Immature Granulocytes Pct Auto 0.3 % (0.0-0.5); Lymphocytes Absolute Auto 3.5 10^3/uL (1.2-3.8); Lymphocytes Percent Auto 35.6 % (20.5-60.0); Mean Corpuscular HGB Conc 31.9 g/dL (29.9-35.2); Mean Corpuscular Hemoglobin 26.1 pg (26.7-34.0); Mean Corpuscular Volume 81.9 fL (81.0-99.0); Mean Platelet Volume 13.4 fL (9.5-13.5); Monocytes Absolute Auto 0.5 10^3/uL (0.3-0.8); Monocytes Percent Auto 5.5 % (1.7-12.0); Neutrophils Absolute Auto 5.6 10^3/uL (1.4-6.5); Platelet Count 214 10^3/uL (150-450); Red Blood Count 4.48 10^6/uL (4.20-5.40); Red Cell Distribution Width 14.2 % (11.0-15.0); White Blood Count 9.8 10^3/uL (4.0-11.0)
[2025-01-10 08:09] LABS: Estimated Average Glucose 100 mg/dL; Glycohemoglobin A1C 5.1 % (4.5-6.2)
[2025-01-10 09:42] LABS: Alanine Aminotransferase 24 U/L (14-59); Albumin Globulin Ratio 0.8; Albumin Level 3.3 g/dL (3.4-5.0); Alkaline Phosphatase 49 U/L (46-116); Anion Gap 14.5; Aspartate Amino Transferase 12 U/L (15-37); BUN Creatinine Ratio 22.6; Bilirubin Total 0.2 mg/dL (0.2-1.0); Calcium 9.1 mg/dL (8.5-10.1); Carbon Dioxide 26.6 mmol/L (21.0-32.0); Chloride 106 mmol/L (98-107); Cholesterol 161 mg/dL (<=200); Estimated GFR (African America >60 (>=60 mL/min/1.73m^2); Estimated GFR (Non-African Ame >60 (>=60 mL/min/1.73m^2); Free T3 2.48 pg/mL (2.18-3.98); Globulin 3.9 g/dL; Glucose 94 mg/dL (74-106); HDL Cholesterol 54 mg/dL (40-60); LDL Cholesterol Calculated 90.2 mg/dL; Potassium 4.1 mmol/L (3.5-5.1); Sodium 143 mmol/L (136-145); Thyroid Stimulating Hormone 1.101 uIU/mL (0.358-3.740); Total Protein 7.2 g/dL (6.4-8.2); Triglycerides 84 mg/dL (<=150); VLDL CHOLESTEROL 16.8 mg/dL
[2025-01-11 06:08] LABS: Insulin 11.3 uIU/mL (2.6-24.9)
== END 2025-01-10 07:21 | disposition home or self-care (01) ==
LOC: LAB 07:21
PROVIDERS: PCP Family Medicine; Visit Provider Family Medicine
DX: Z00.00 Encounter for general adult medical examination without abnormal findings (principal)
CPT/HCPCS: 36415; 80053; 80061; 83036; 83525; 84436; 84443; 84481; 85025

== ENCOUNTER 2025-02-25 10:25 | Outpatient (OUT) | payer OTHER, SELFPAY ==
--- OUTSIDE RECORDS SUMMARY | 2024-12-19 12:45 | XMS_ITS ---
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 Name Role Phone Patsy Davis Primary Care Provider REASON FOR VISIT BH F/U Encounters Encounter Location Date Provider Diagnosis [facility] [address] [place] [address] 12/19/2024 Patsy Davis Plan Of Treatment Next Appt Details Provider Name:Patsy whitman, 03/06/2025 05:00:00 PM, [address] [place], [address], Provider Name:Patsy whitman, 04/10/2025 04:30:00 PM, [address] [place], [address], Progress Notes * BRO ANTONIOOB:1990 (34 yo F)Acc No.[id number]:12/19/2024 BH F/U - Patient Patient: SHIN LARA Provider: Beatriz Davis :1990 A ge:34 Y S ex:Female Date:12/19/2024 Address:[address] [place], [place] [id number] Subjective: * Chief Complaints: * 1 . BH F/U. Objective: Therapeutic Interventions: Assessment: Plan: * Images: Care Plan Details* * Electronic signature of HUGO Aiken on 02/25/2025 at 10:28 AM EDT Sign off status: Pending * Provider: Beatriz Davis Date: 0 12/19/2024 Generated for Benson chand/Rolan/Ashwin on: 0 02/25/2025 10:28 AM EDT
--- OUTSIDE RECORDS SUMMARY | 2025-01-16 04:45 | XMS_ITS ---
Author Organization [facility] in [place] Address [address] [place] [address] Care Team Providers Care Electrical Technician Instructor Name Role Phone Severiano Ramsey Primary Care Provider [phone] Allergies No Known Allergies REASON FOR VISIT high heart rate- sitting at work feel heart rate in chest- HR 157 at home- not anxious, periods when standing for extended period of time gets hot, feel like could pass out- this has been on going for about a year Medications Medication SIG (Take, Route, Frequency, Duration) Notes Start Date End Date Status Semaglutide 2.268 mg/0.63 mL 2.268 mg/0.63 mL 0.63 mL Subcutaneous Once weekly for 28 days 04/04/2024 Active Metoprolol Tartrate 25 MG 1 tablet with food Orally Twice a day for 30 days 01/16/2025 Active Slynd 4 MG Oral for 84 Days Ac tive Ferrous Sulfate 325 (65 Fe) MG 1 tablet Orally Twice Daily for 30 days 01/13/2025 Active Social History Tobacco Use: Social History Observation Description Date Details (start date - stop date) Never Smoker NA - NA Tobacco Use/Smoking Question Answer Notes Patient is a nonsmoker Vital Signs Weight 232.8 lbs 01/16/2025 Height 65 in 01/16/2025 Blood pressure systolic 124 mm Hg 01/17/20 25 Blood pressure diastolic 70 mm Hg 025 BMI 38.74 kg/m2 01/16/2025 Procedures Procedure Date Ordered Date Performed Result Body Sit e EKG w Interp & Report - performed 01/16/2025 N/ A Encounters Encounter Location Date Provider Diagnosis [facility] [address] [place] [address] 01/16/2025 Severiano Ramsey Tachycardia R00. 0 Assessments Encounter Date Diagnosis (ICD Code) Assessment Notes Treatment Notes Treatment Clinical Notes Section Notes 01/16/2025 Tachycardia (ICD-10 - R00.0) want to hold off opn tsting - had it in the past Plan Of Treatment Medication Medication Name Sig Start Date Stop Date Notes Metoprolol Tartrate 25 MG 1 tablet with food Orally Twice a day for 30 days 01/16/2025 Treatment Notes Assessment Notes Tachycardia want to hold off opn tsting - had it in the past Pending Test Test Name Order Date EKG w Interp & Report - performed 2024 Procedure Notes * Category Sub-Category Detail Notes EKG w/Interp Interpretation: NSR - sl tachy - no acute changes Progress Notes * ANTONIOJazminOB:1990 (34 yo F)Acc No.[id number]:01/16/2025 Progress Note Patient: Kavon LARA Provider: Jose Ramsey ([facility])MD :1990 A ge:34 Y S ex:Female Date:01/16/2025 Address:[address] [place], [place] [id number] Check In:08:22 AM ESTCheck O ut:09:14 AM EST Subjective: * Chief Complaints: * h igh heart rate- sitting at work feel heart rate in chest- HR 157 at home- not anxiousPeriods when standing for extended period of time gets hot, feel like could pass out- this has been on going for about a year * HPI: G eneral: Nobig on caffeine - not a lot fo salt has had monigtro in the past - and has tachycardia - but no abn beats -. * ROS: E ENT: hearing changes d enies. v isual changes d enies.?non-healing mouth sores d enies. s wollen glands or neck lumps d enies. h oarseness d enies. s ore throat d enies. d ifficulty swallowing d enies. n ose bleeds d enies. n wilman congestion d enies. e ar ache d enies. e ar discharge?denies. r inging in ears d enies. l ight sensitivity d enies. e ye pain d enies. b lurring d enies. e ye irritation d enies. d ouble vision d enies.?vision loss d enies. G eneral/Constitutional: Sweats: D enies. F atigue d enies. S leep problems d enies. A norexia d enies. M alaise d enies. W eight loss d enies.?Fatigue or Weakness d enies. F ever or Chills d enies. C ardiovascular: Shortness of Breath w/lying flat d enies. L ightheadedness/dizziness d enies. C hest tightness/ heavy pressure d enies. S welling of legs, ankles, or feet d enies. W aking up with shortness of breath d enies. C hest pain denies. P alpitations d enies. W eight gain d enies. R espiratory: Chronic or frequent cough d enies. C oughing up blood?denies. D ifficulty breathing d enies. P roductive cough d enies. S noring?denies. S hortness of breath that awakens from sleep (PND) d enies. C hest pain d enies. S putum production d enies. W heezing d enies. M usculoskeletal: Joint pain d enies. J oint Fluid d enies. B ack pain d enies. K nee pain d enies. N dalila pain d enies. J oint Stiffness d enies. M uscle cramps d enies. W eakness of muscles d enies. A rthritis d enies. M uscle aches d enies. P ain in shoulder(s) d enies. S wollen joints d enies. * Active Problem List H66.92 Left otitis media Modified On:08/17/2023W/U Status:confirmed Z00.00 Well adult Modified On:12/22/2023W/U Status:confirmed D64.9 Anemia Modified On:01/13/2025W/U Status:confirmed * Medical History: * Surgical History: C -Section x5 Ganglion Cyst left hand [facility] [place] * Hospitalization/Major Diagno stic Procedure: b irth * Family History: F ather: unknown. M other: alive, diagnosed with Diabetes mellitus without mention of complication, type II or unspecified type, not stated as uncontrolled, Unspecified essential hypertension, Chronic kidney disease, unspecified. M ategiancarlo Grandfather: , lung cancer, diagnosed with Diabetes mellitus without mention of complication, type II or unspecified type, not stated as uncontrolled. M aternal Grandmother: , diagnosed with Diabetes mellitus without mention of complication, type II or unspecified type, not stated as uncontrolled, Unspecified essential hypertension. * Social History: T obacco Use: T obacco Use/Smoking P atient is a n onsmoker * Medications: T akingFerrous Sulfate 325 (65 Fe) MG Tablet 1 tablet Orally Twice Daily Semaglutide 2.268 mg/0.63 mL 2.268 mg/0.63 mL Soultion Auto-injector 0.63 mL Subcutaneous Once weekly Slynd(Drospirenone) 4 MG Tablet Oral Taking Ferrous Sulfate 325 (65 Fe) MG Tablet 1 tablet Orally Twice Daily Taking Semaglutide 2.268 mg/0.63 mL 2.268 mg/0.63 mL Soultion Auto-injector 0.63 mL Subcutaneous Once weekly Taking Slynd(Drospirenone) 4 MG Tablet Oral DiscontinuedFerrous Sulfate 325 (65 Fe) MG Tablet Delayed Release 1 tablet Orally BID Medication List reviewed and reconciled with the patientDiscontinued Ferrous Sulfate 325 (65 Fe) MG Tablet Delayed Release 1 tablet Orally BID Medication List reviewed and reconciled with the patient * Allergies: N .K.D.A.no[Allergies Verified] Objective: * Vitals: W t:232.8lbs, Ht: 65 in, BP:124/70mm Hg, BMI:38.74Index, Ht-cm: 165.1 cm, Wt-k.6 kg. * Examination: P hysical Exam: GENERAL: w ell developed, well nourished, in no acute distress. HEAD: n ormocephalic/atraumatic. EYES: p upils equal, round and reactive to light, conjunctivae and sclerae normal. EARS: n o deformity or lesion of external ear, canals and TM appear normal bilaterally, TM's intact, not inflamed with normal light reflex, hearing grossly normal to conversational speech. NOSE: n o deformity, discharge, inflammation, or lesions.? MOUTH: m ucous membranes moist, normal oropharynx and posterior pharynx without lesions or exudates, tongue normal, dentition normal. NECK: n dalila supple, no masses or palpable cervical nodes, trachea midline, thyroid without nodules, masses, tenderness, or enlargement. CHEST: n o chest wall deformity, no chest wall tenderness.? LUNGS: n ormal respiratory effort and clear to auscultation, no wheezes, rales, or rhonchi, good air exchange. CARDIO: r egular rate and rhythm, normal S1 and S2, nor murmur, rub, or gallop. PULSES: n ormal capillary refill. ABDOMEN: s oft, non-distended, non-tender, no masses. MUSCULOSKELETAL: n o deformity or scoliosis noted, normal range of motion, joints normal, no erythema, edema, effusion, or ecchymosis. EXTREMITY: n o clubbing, cyanosis, edema, or deformity with normal ROM in both upper and lower bilateral extremities. NEUROLOGIC: g rossly normal. SKIN: n o rashes, ulcerations, or suspicious lesions. LYMPH NODES: n o cervical adenopathy, nodes normal. MENTAL STATUS: a lert and oriented x3, normal mood and affect. Assessment: * Assessment: 1. T achycardia - R00.0 (Primary) Plan: * Treatment: * Procedures: E KG w/Interp: Interpretation: N SR - sl tachy - no acute changes. ? * Procedure Codes: 9 3000 EKG, WINTERP. * * Sign off status: Completed Visit Status: C HK (Check Out) true * Provider: Jose Ramsey ([facility])MD Date: 0 01/16/2025 Generated for Benson ng/Fashannong/eTransmitting on: 0 02/25/2025 10:28 AM EDT History and Physical Notes * HPI (History of Present Illness) Category Sub-Category Detail Notes Category Not es General Nobig on caffeine - not a lot fo salt has had monigtro in the past - and has tachycardia - but no abn beats - Examination Category Sub-Category Detail Notes Category Not es Physical Exam GENERAL: well developed, well nourished, in no acute distress HEAD: normocephalic/atraum atic EYES: pupils equal, round and reactive to light, conjunctivae and sclerae normal EARS: no deformity or lesi on of external ear, canals and TM appear normal bilaterally, TM's intact, not inflamed with normal light reflex, hearing grossly normal to conversational speech NOSE: no deformity, discha rge, inflammation, or lesions MOUTH: mucous membranes víctor st, normal oropharynx and posterior pharynx without lesions or exudates, tongue normal, dentition normal NECK: neck supple, no mass es or palpable cervical nodes, trachea midline, thyroid without nodules, masses, tenderness, or enlargement CHEST: no chest wall deform ity, no chest wall tenderness LUNGS: normal respiratory e ffort and clear to auscultation, no wheezes, rales, or rhonchi, good air exchange CARDIO: regular rate and rhy thm, normal S1 and S2, nor murmur, rub, or gallop PULSES: normal capillary ref ill ABDOMEN: soft, non-distended, non-tender, no masses RECTAL: MUSCULOSKELETAL: no deformity or scol iosis noted, normal range of motion, joints normal, no erythema, edema, effusion, or ecchymosis EXTREMITY: no clubbing, cyanosi s, edema, or deformity with normal ROM in both upper and lower bilateral extremities NEUROLOGIC: grossly normal SKIN: no rashes, ulceratio ns, or suspicious lesions LYMPH NODES: no cervical adenopat hy, nodes normal MENTAL STATUS: alert and oriented x 3, normal mood and affect
--- OUTSIDE RECORDS SUMMARY | 2025-01-23 10:50 | XMS_ITS ---
Author Organization [facility] in [place] Address [address] [place] [address] Care Team Providers Care Supervisor Body Assembly Name Role Phone Severiano Ramsey Primary Care Provider REASON FOR VISIT bp check- Encounters Encounter Location Date Provider Diagnosis [facility] [address] [facility] [place] [address] 01/23/2025 Severiano Ramsey Plan Of Treatment No Information Progress Notes * Jazmin ANTONIOOB:1990 (34 yo F)Acc No.[id number]:01/23/2025 Patient: Kavon LARA :1990 A ge:34 Y S ex:Female Address:[address] [place] [address] * true * Date: Generated for Benson chand/Rolan/eTransmitting on: 0 02/25/2025 10:29 AM EDT
--- OUTSIDE RECORDS SUMMARY | 2025-01-23 11:00 | XMS_ITS ---
Author Organization The [facility] in [place] Address [address] [place] [address] Care Team Providers Care Floodplain Manager Name Role Phone Severiano Ramsey Primary Care Provider [phone] REASON FOR VISIT bp check Problems Problem Type SNOMED Code ICD Code Onset Dates Problem Status W/U Status Risk Notes Problem Tachycardia (R00.0) Active confirmed Encounters Encounter Location Date Provider Diagnosis [facility] [address] [place] [address] 01/23/2025 Severiano Ramsey Tachycardia R00. 0 Assessments Encounter Date Diagnosis (ICD Code) Assessment Notes Treatment Notes Treatment Clinical Notes Section Notes 01/23/2025 Tachycardia (ICD-10 - R00.0) Plan Of Treatment No Information Progress Notes * Gilberto ANTONIOnDOB:1990 (34 yo F)Acc No.[id number]:01/23/2025 BP Check Patient: Kavon LARA Provider: Jose Ramsey ([facility])MD :1990 A ge:34 Y S ex:Female Date:01/23/2025 Address:[address] [place], [place] [id number] Check In:02:45 PM ESTCheck O ut:03:04 PM EST Subjective: * Chief Complaints: * 1 . Bp check. * HPI: G eneral: presents to the office for a bp check. * Active Problem List H66.92 Left otitis media Modified On:08/17/2023W/U Status:confirmed Z00.00 Well adult Modified On:12/22/2023/U Status:confirmed D64.9 Anemia Modified On:01/13/2025/U Status:confirmed R00.0 Tachycardia Modified On:01/23/2025/U Status:confirmed * Medical History: Objective: * Vitals: Assessment: * Assessment: 1. T achycardia - R00.0 (Primary) Plan: * Treatment: * * Sign off status: Completed Visit Status: C HK (Check Out) true * Provider: Jose Ramsey ([facility])MD Date: 01/23/2025 Generated for Benson chand/Rolan/Paulinaitting on: 02/25/2025 10:29 AM EDT History and Physical Notes * HPI (History of Present Illness) Category Sub-Category Detail Notes Category Not es General presents to the office for a bp check
--- OUTSIDE RECORDS SUMMARY | 2025-02-20 09:30 | XMS_ITS ---
Author Organization [email or web address] Address [address] [place] [address] Care Team Providers Care Flour Broker Name Role Phone Patsy Davis Primary Care Provider [phone] REASON FOR VISIT F/U Encounters Encounter Location Date Provider Diagnosis [facility] [address] [place] [address] 02/20/2025 Patsy Davis Post traumatic stres s disorder (PTSD) F43.10 Assessments Encounter Date Diagnosis (ICD Code) Assessment Notes Treatment Notes Treatment Clinical Notes Section Notes 02/20/2025 Post traumatic stress disorder (PTSD) (ICD-10 - F43.10) Plan Of Treatment Next Appt Details Follow Up: 3 Weeks, Reason: Provider Name:Patsy whitman, 03/06/2025 05:00:00 PM, [address] [place], [address], Provider Name:Patsy whitman, 04/10/2025 04:30:00 PM, [address] [place], [address], Progress Notes * BRO ANTONIOOB:1990 (34 yo F)Acc No.[id number]:02/20/2025 F/U - Patient Patient: SHIN LARA Provider: Beatriz Davis :1990 A ge:34 Y S ex:Female Date:02/20/2025 Address:[place], [id number] Subjective: * Chief Complaints: * 1 . BH F/U. Objective: Therapeutic Interventions: Assessment: * Assessment: 1. P ost traumatic stress disorder (PTSD) - F43.10 (Primary) Plan: * Procedure Codes: 9 0834 PSYTX EST PT&/FAMILY 45 MIN (38-52) * Follow Up: 3 Weeks * Images: Care Plan Details* Problem B H F/U Progress Note Present At Appointment: P lit Session Type: F erasmo to Face Start Time/End Time: S tart: 1:32End: 2:24 Mental Status Examination Orientation: O riented x 4 Mood: D epressed;Anxious Affect: A ppropriate Insight/Judgment: F air Thought Process: C ircumstantial Speech: N ormal Intervention Risk Assessment: P T denies all areas of risk. No contrary indications present. Therapy Modality: c ognitive behavioral Interventions: a ssess safety risks;cognitive challenging;cognitive reframing;cognitive refocusing;encourage expression of needs;exploration of coping skills;emotion regulation;healthy boundaries;identify unmet emotional needs;increase awareness of warning signs to triggers;reflective listening;problem-solve barriers;role-play/behavioral reversal;review mood symptoms and triggers;supportive reflectionComments :WELL SHOOTER offered supportive listening and validation of patients feelings. WELL SHOOTER provided feedback as needed. WELL SHOOTER worked with patient on processing her feelings with her mothers cancer dx and treatment and how she is coping. WELL SHOOTER challenged pts thoughts and worked with patient on redirection. WELL SHOOTER discussed identification of social supports that can help with the kids where she can engage in self-care if needed. Patient to continue to use her coping skills. Response to Intervention: P lit reports that her stressors have not changed and that her mothers health is ailing and she is not doing what she is supposed to do and just spent the last week in the ICU for being septic and that they stopped chemo due to not eating or drinking because she does not feel like it. Patient reports between her children, job and taking care of her mother she feels like she has not been managing her self care of managing her emotions. Progress: l ow * Sign off status: Completed true * Provider: Beatriz Davis Date: 0 02/20/2025 Generated for Benson chand/Rolan/Ashwin on: 0 02/25/2025 10:28 AM EDT
--- OUTSIDE RECORDS SUMMARY | 2025-02-25 10:28 | XMS_ITS | Encounter Summary ---
Author Organization [facility] tem Address [id number] [address] [place] [address] Care Team Providers Care Lithograph Press Feeder Name Role Phone Olaf Ramsey MD Primary Care Provider [phone] Encounter Details Date Type Department Care Team (Late st Contact Info) Description 12/11/2020 Telephone Maternal- Medicine at [facility] [address] [place] [address] Erica Edwards CNA Social History Tobacco Use Types Packs/Day Years Used Date Smoking Tobacco: Never Assessed Comments Unknown Sex and Gender Information Value Date Recorded Sex Assigned at Not on file Legal Sex Female 12:34 PM EDT Gender Identity Not on file Sexual Orientation Not on file documented as of this encounter Plan of Treatment Not on file documented as of this encounter Visit Diagnoses Not on filedocumented in this encounter Care Teams Lithograph Press Feeder Relationship Specialty Start Date End Date Olaf Ramsey MD PCP - General Family Medicine 01/13/21 documented as of this encounter
--- OUTSIDE RECORDS SUMMARY | 2025-02-25 10:28 | XMS_ITS | Encounter Summary ---
Author Organization [facility] Address [address] [place] [address] Care Team Providers Care C Iron Worker Name Role Phone Olaf Ramsey MD Primary Care Provider [phone] Encounter Details Date Type Department Care Team (Late Contact Info) Description 12/04/2024 Orders Only [facility] [address] [place] [id number] Yuli Durbin [place] [address] [place] [address] Social History Tobacco Use Types Packs/Day Years Used Date Smoking Tobacco: Never Smokeless Tobacco: Never Alcohol Use Standard Drinks/Week Comments Never 0 (1 standard drink = 0.6 oz pur e alcohol) caffeine: none Comments No Sex and Gender Information Value Date Recorded Sex Assigned at Not on file Legal Sex Female 7:09 PM EDT Gender Identity Not on file Sexual Orientation Not on file documented as of this encounter Plan of Treatment Upcoming Encounters Date Type Department Care Team (Late Contact Info) Description 12/16/2025 3:00 PM EDT Office Visit [facility] [address] [place] [address] Luis Camacho DO [address] [place], [place] [id number] documented as of this encounter Goals Goal Patient Goal Type Associated Problems Recent Progress Patient-Stated? Author Reminders Care Plan OB Reminders No Open Scheduling, Background documented as of this encounter Procedures Procedure Name Priority Date/Time Associated Diagnosis Comments PAP SMEAR Routine 11/25/2024 12:00 AM EDT documented in this encounter Results * Pap Smear (11/25/2024 12:00 AM EDT) Swab Cervical swab / Unknown us Luis Doug DO LAB CYTOLOGY ORDERABLES Final Re sult EXTERNAL LAB documented in this encounter Visit Diagnoses Not on filedocumented in this encounter Additional Health Concerns Active Problems Noted Date Diagnosed Date OB Reminders 01/02/2023 documented as of this encounter Care Teams C Iron Worker Relationship Specialty Start Date End Date Olaf Ramsey MD PCP - General Family Medicine 12/16/22 documented as of this encounter
--- OUTSIDE RECORDS SUMMARY | 2025-02-25 10:28 | XMS_ITS | Clinical Summary ---
Author Organization [employer] [facility] tem Address [id number] [address] [place] [address] Care Team Providers Care Goat Herder Name Role Phone Olaf Ramsey MD Primary Care Provider [phone] Allergies Active Allergy Reactions Criticality Noted Date Comments Adhesive Hives 01/11/2021 Medications PNV,calcium 72-iron,carb-fol ic ( PLUS) 29 mg iron- 1 mg tablet Take by mouth daily. Active bisacodyL (DULCOLAX) 5 mg EC tablet Take 5 mg by mouth daily as needed for constipatio n. Active Lactobacillus acidophilus (PROBIOTIC ORAL) Take by mouth. Active Active Problems Problem Noted Date Diagnosed Date History of IUFD Overview (01/13/2021): h/o iufd at 38 wks Family History Medical History Relation Name Comments No Known Problems Brother Hypertension Father Lung cancer Maternal Grandfather Diabetes Mother Relation Name Status Comments Brother Father Maternal Grandfather Maternal Grandmother Mother Paternal Grandfather Paternal Grandmother Social History Tobacco Use Types Packs/Day Years Used Date Smoking Tobacco: Never Smokeless Tobacco: Never Alcohol Use Standard Drinks/Week Comments Not Currently 0 (1 standard drink = 0.6 oz pur e alcohol) Comments Unknown Sex and Gender Information Value Date Recorded Sex Assigned at Not on file Legal Sex Female 12:34 PM EDT Gender Identity Not on file Sexual Orientation Not on file Last Filed Vital Signs Vital Sign Reading Time Taken Comments Blood Pressure 130/71 01/13/2021 10:28 AM EDT Pulse 80 01/13/2021 10:28 AM EDT Temperature - - Respiratory Rate - - Oxygen Saturation - - Inhaled Oxygen Concentration - - Weight 107.9 kg (237 lb 14 oz) 01/13/2021 10:28 AM EDT Height 165.1 cm (5' 5 ) 01/11/2021 11:31 AM EDT Body Mass Index 39.58 01/11/2021 11:31 AM EDT Plan of Treatment Health Maintenance Due Date Last Done Comments Depression Screening 2000 Tobacco Screening 2000 Adult BMI Screening 2006 DTaP,Tdap and Td Vaccines (1 - Tdap) 11/12/2007 Pap Smear 2009 Influenza Vaccine 03/17/2025 04/16/2017 Medical Devices Not on file Insurance [employer] ([employer]) [employer] Care Teams Goat Herder Relationship Specialty Start Date End Date Olaf Ramsey MD PCP - General Family Medicine 01/13/21
--- OUTSIDE RECORDS SUMMARY | 2025-02-25 10:28 | XMS_ITS | Encounter Summary ---
Author Organization [facility] tem Address [id number] [address] [place] [address] Care Team Providers Care Billet Sawyer Name Role Phone Olaf Ramsey MD Primary Care Provider [phone] Encounter Details Date Type Department Care Team (Late st Contact Info) Description 12/11/2020 Telephone Maternal- Medicine at [facility] [address] [place] [address] Erica Edwards CNA Social History [...] on filedocumented in this encounter Care Teams Billet Sawyer Relationship Specialty Start Date End Date Olaf Ramsey MD PCP - General Family Medicine 01/13/21 documented as of this encounter
--- OUTSIDE RECORDS SUMMARY | 2025-02-25 10:28 | XMS_ITS | Clinical Summary ---
Author Organization [facility] Address [address] [place] [address] Care Team Providers Care Mail Messenger Contractor Name Role Phone Olaf Ramsey MD Primary Care Provider [phone] Allergies Active Allergy Reactions Criticality Noted Date Comments Wound Dressing Adhesive Hives,Rash,Unknown Low 06/16/2016 And welts Bandaide-hives/burning Other Reaction(s): Not available Medications magnesium oxide (Mag-Ox) 400 MG tabletIndications :Headache, unspecified TAKE 1 TABLET BY MOUTH EVERY DAY NEEDED FOR 30 DAYS 30 tablet 3 11/01/19 24 Active Semaglutide-Weigh t Management 1.7 MG/0.75ML solution auto-injector 0.5 mL Subcutaneous Once Weekly for 30 days 03/08/20 24 Active Pediatric Multiple Vitamins (FLINSTONES GUMMIES OMEGA-3 DHA PO) Take by mouth Active desogestrel-ethin yl estradiol (Apri) 0.15-30 MG-MCG tabletIndications :PMDD (premenstrual dysphoric disorder) Take 1 tablet by mouth Daily Take 1 tablet by mouth daily 84 tablet 3 03/21/20 24 Active Drospirenone (Slynd) 4 MG tabletIndications :Well woman exam with routine gynecological exam,Decreased libido,PMDD (premenstrual dysphoric disorder) Take 1 tablet by mouth Daily 84 tablet 3 11/26/19 25 Active Active Problems Problem Noted Date Diagnosed Date Axillary lump, right 01/24/2023 Clotting disorder ([facility]) 01/24/2023 Dyssomnia 01/24/2023 History of IUFD 01/24/2023 Overview (01/24/2023): h/o iufd at 38 wks Other antepartum hemorrhage, first trimester ( [facility]) 01/24/2023 Other specified disorders of amniotic fluid and membranes, second trimester, not applicable or unspecified ([facility]) 01/24/2023 Pain and tenderness 01/24/2023 Pain in female pelvis 01/24/2023 Ganglion of left hand 02/07/2022 Intrauterine affecting management of mothe r ([facility]) 09/13/2020 SVT (supraventricular tachycardia) 06/22/2018 Overview (01/24/2023): No heart racing spells. No syncope. Hx of complete cardiac work up, negative. Echo WNL. No issues at this time. 06/25/2020 No hx of cardioversion. Having heart racing spells. Has seen cardiology with neg work up for cardiac abnormality. Metoprolol therapy risks expained. For prn use. 07/30/2020 Last Assessment & Plan: Having heart racing spells. Has seen cardiology with neg work up for cardiac abnormality. Metoprolol therapy risks expained. For prn use. 07/30/2020 ventricular septal def ect affecting antepartum care of mother ([facility]) 01/11/2018 Overview (01/24/2023): No discussion regarding this finding. Normal growth. Risks of this discussed.recommend evaluation post delivery, unsure about this dx. See it on the problem list but . . . . I didn't do it! . Last Assessment & Plan: Possible VSD. Its on the problem list. But I don't know why. The u/s does not have and description of this finding. 09/03/2020 H/O macrosomia in in prior , currently , third trimester ([facility]) 01/11/2018 Previous delivery, antepartum condition or complication ([facility]) 01/11/2018 Overview (01/24/2023): Hx of 3 previous c/s, first for NRFHT after epidural. Repeat c/s for #2, then attempt at home delivery for #3, OP presentation, Fetus #2 was 9 lb 7 oz. Recommend c/s as mode of delivery . Risks of uterine rupture of 4-9% explained at length . Consequences of uterine rupture explained at length including hypoxic brain injury, uterine damage requiring hysterectomy and severe bleeding, possibly requiring transfusion of blood. Extensive discussion regarding risks of this situation explained at length . 06/02/2020 She understands risks of uterine rupture. Fetus evaluated by u/s today. 96%ile. 2300 g. Repeat u/s in 5 wks. Risks of labor explained. She understands these risks and still desires attempt at . 07/30/2020 Recommend repeat c/s as mode of delivery. Risks of after 3 previous c/s explained. Risks of uterine rupture between 4 and 9 percent discussed at length. sequellae of uterine rupture explained including hemorrhage, uterine damage, possible need for removal of the uterus and possible permanent brain damage for the fetus related to hypoxia. She declines repeat c/s at this time. She has good understanding of the risks of after three previous c/s. 08/20/2020 Recommend c/s. She declines. Risks of discussed at length. Hx of AOL at 5 cm with first baby 6 lb 9 oz, No attempted for second and third . Desires . EFW 7 lb 7 oz today. GBS culture done today. 09/03/2020 Recommend c/s for mode of delivery. Risks of and uterine rupture explained. Patient strongly desires attempt at and understands these risks. 09/10/2020 Last Assessment & Plan: Recommend c/s for mode of delivery. Risks of and uterine rupture explained. Patient strongly desires attempt at and understands these risks. 09/10/2020 Suspected anomaly not found 01/11/2018 Encounters Date Type Department Care Team Description 12/04/2024 [place] [address] Yuli Durbin MA 11/25/2024 2:00 PM ED[place] [address] Luis Camacho DO Well woman exam with routine gynecological exam; Decreased libido; PMDD (premenstrual dysphoric disorder) 11/25/2024 Clinisync Result Encounter [facility] External Department Unsolicited Luis Camacho DO 11/25/2024 [place] [id number] Luis Camacho DO from Last 3 Months Family History Medical History Relation Name Comments No Known Problems Brother 2 No Known Problems Daughter 1 Hypertension Father Skin cancer Father's Sister Cancer Maternal Grandfather lung Heart failure Maternal Grandmother Diabetes Mother Nephrolithiasis Mother Heart attack Paternal Grandfather Heart attack Paternal Grandmother No Known Problems Son Relation Name Status Comments Brother Daughter 1 Alive Daughter 2 Alive Daughter 3 Alive Father Alive Father's Sister Maternal Grandfather Maternal Grandmother Mother Alive Paternal Grandfather Paternal Grandmother Son Alive Social History Tobacco Use Types Packs/Day Years Used Date Smoking Tobacco: Never Smokeless Tobacco: Never Tobacco Cessation:Counseling Given: Not Answered Alcohol Use Standard Drinks/Week Comments Never 0 (1 standard drink = 0.6 oz pur e alcohol) caffeine: none Comments No Sex and Gender Information Value Date Recorded Sex Assigned at Not on file Legal Sex Female 7:09 PM EDT Gender Identity Not on file Sexual Orientation Not on file Last Filed Vital Signs Vital Sign Reading Time Taken Comments Blood Pressure 130/82 11/25/2024 2:15 PM EDT Pulse - - Temperature - - Respiratory Rate - - Oxygen Saturation - - Inhaled Oxygen Concentration - - Weight 110 kg (243 lb) 11/25/2024 2:15 PM EDT Height 165.1 cm (5' 5 ) 11/22/2023 10:34 AM EDT Body Mass Index 40.44 11/22/2023 10:34 AM EDT Plan of Treatment Upcoming Encounters Date Type Department Care Team (Late st Contact Info) Description 12/16/2025 3:00 PM EDT Office Visit [facility] [address] [place] [address] Luis Camacho, [address] [place] [address] Health Maintenance Due Date Last Done Comments Influenza Vaccine (#1) 2025 04/01/2022, 2016 Cervical Cancer Screening 11/25/2029 HPV/Cotest 11/25/2029 Pap Smear 11/25/2029 11/25/2024, 07/04/2022, 06/16 Goals Goal Patient Goal Type Associated Problems Recent Progress Patient-Stated? Author Reminders Care Plan OB Reminders No Open Scheduling, Background Procedures Procedure Name Priority Date/Time Associated Diagnosis Comments POCT URINALYSIS DIPSTICK Routine 11/25/2024 2:23 PM EDT Well woman exam with routine gynecological exam IGP,APTIMA HPV,AGE GDLN Routine 11/25/2024 2:11 PM EDT PAP SMEAR Routine 11/25/2024 12:00 AM EDT from Last 3 Months Results * POCT urinalysis dipstick manually resulted (11/25/2024 2:23 PM EDT) Color, UA Yellow Clarity, UA Clear Glucose, UA Negative Negative - 1999(110) ++++ mg/dL Bilirubin, UA Negative Negative - 4(70) +++ mg/dL Ketones, UA Negative Negative - 160(16) ++++ mg/dL Spec Grav, UA 1.005 1 - 1.03 Blood, UA Negative Negative - 50 Hugo/mcL pH, UA 6.5 5 - 9 Protein, UA Negative Negative - 1999(20) ++++ mg/dL Urobilinogen, UA 0.2 0.2 - 12 mg/dL Leukocytes, UA Negative Negative - 500+++ Sally/mcL Nitrite, UA Negative Negative - Positive Urine 11/25/2024 2:23 PM EDT us Luis Camacho DO POINT OF CARE TEST ENTER/EDIT OR DERABLES Final Result * IGP,APTIMA HPV,AGE GDLN (11/25/2024 2:11 PM EDT) AGE GDLN ACOG TESTING Note . [facility] Comment: TESTS RESULT FLAG UNITS REF RANGE LAB Clinician Provided Cytology Information Source.............Cervix;Endocervix No. of containers..01 ThinPrep Vial Age Algo ACOG Ximena... 30-65 01 FLAG LEGEND: L-Low Normal,H-High Normal,LL-Alert Low,HH-Alert High <-Panic Low,>-Panic High,A-Abnormal,AA-Critical Abnormal Performed at: 01 =[facility] [address] [facility] [place] [address] Jessica Owens MD, IGP, APTIMA HPV, RFX 16/18,45 Note . [facility] Comment: TESTS RESULT FLAG UNITS REF RANGE LAB DIAGNOSIS: 02 NEGATIVE FOR INTRAEPITHELIAL LESION OR MALIGNANCY. Specimen adequacy: 02 Satisfactory for evaluation. No endocervical component is identified. Performed by: 02 Ladi Mars, Supervisory Brush Operator ([facility]) . 02 Note: Note 02 The Pap [...] High <-Panic Low,>-Panic High,A-Abnormal,AA-Critical Abnormal Performed at: [address] [place] [address], [place] [address] Jessica Owens MD, HPV APTIMA Negative Negative [facility] Comment: This nucleic acid amplification test detects fourteen high- risk HPV types (16,18,31,33,35,39,45,51,52,56,58,59,66,68) without differentiation. Performed at: =[address] [id number] [employer] Folding Supervisor: Jessica Owens MD, Phone: [phone] Performed at: [address] [id number] [employer] Supervisor: Jessica Owens MD, Phone: [phone] 11/25/2024 2:11 PM EDT 11/26/2024 6:09 AM EDT Narrative [facility] - 11/28/2024 2:13 PM EDT BRUSH-SPATULA CERVIX ENDOCERVIX us Luis Doug DO LAB BLOOD ORDERABLES Final Resul t [facility] * Pap Smear (11/25/2024 12:00 AM EDT) Swab Cervical swab / Unknown us Luis Doug DO LAB CYTOLOGY ORDERABLES Final Re sult EXTERNAL LAB from Last 3 Months Additional Health Concerns Active Problems Noted Date Diagnosed Date OB Reminders 01/02/2023 Insurance [employer], [employer] Care Teams Mail Messenger Contractor Relationship Specialty Start Date End Date Olaf Ramsey MD PCP - General Family Medicine 12/16/22
--- OUTSIDE RECORDS SUMMARY | 2025-02-25 10:29 | XMS_ITS | Encounter Summary ---
Author Organization [facility] Address [address] [place], [place] [id number] Care Team Providers Care Spline Rolling Machine Job Setter Name Role Phone Lidia Cohen MD Primary Care Provider + Source Comments In the event this information is protected by the Federal Confidentiality of Alcohol and Drug AbusePatient Records regulations: The Federal rules restrict any use of the information to criminally investigate or prosecute any alcohol or drug abuse patient.[facility] Encounter Details Date Type Department Care Team (Latest Contact Info) Description 07/22/2017 Get Medical Advice Reproductive Endocrinology Infertility [address] [place] [address] Ba Real MD [address] [place], [place] [id number] RE: Medication Question (Not Renewal) Social History Tobacco Use Types Packs/Day Years Used Date Smoking Tobacco: Never Alcohol Use Standard Drinks/Week Comments No 0 (1 standard drink = 0.6 oz pur e alcohol) Comments No Sex and Gender Information Value Date Recorded Sex Assigned at Not on file Legal Sex Female 8:55 AM EST Gender Identity Not on file Sexual Orientation Not on file documented as of this encounter Plan of Treatment Not on file documented as of this encounter Visit Diagnoses Not on filedocumented in this encounter Care Teams Spline Rolling Machine Job Setter Relationship Specialty Start Date End Date Lidia Cohen MD PCP - General Family Medicine 07/04/16 documented as of this encounter
--- OUTSIDE RECORDS SUMMARY | 2025-02-25 10:29 | XMS_ITS | Encounter Summary ---
Author Organization [facility] Address [address] [place], [place] [id number] Care Team Providers Care Telephone Supervisor Name Role Phone Lidia Cohen MD Primary Care Provider + Source Comments In the event this information is protected by the Federal Confidentiality of Alcohol and Drug AbusePatient Records regulations: The Federal rules restrict any use of the information to criminally investigate or prosecute any alcohol or drug abuse patient.[facility] Encounter Details Date Type Department Care Team (Late st Contact Info) Description 07/06/2016 Patient Msg Reproductive Endocrinology Infertility [address] [place] [address] Ba Tellez MD [address] [place], [place] [id number] your labs Social History Tobacco Use Types Packs/Day Years [...] on filedocumented in this encounter Care Teams Telephone Supervisor Relationship Specialty Start Date End Date Lidia Cohen MD PCP - General Family Medicine 07/04/16 documented as of this encounter
--- OUTSIDE RECORDS SUMMARY | 2025-02-25 10:29 | XMS_ITS | Patient Health Record ---
Author Organization [facility] Address [address] [place] [address] Care Team Providers Care Nurse'S Assistant Name Role Phone Ryan Patsy Primary Care Provider Reason For Referral No Information Problems Problem Type SNOMED Code ICD Code Onset Dates Problem Status W/U Status Risk Notes Problem Post traumatic stress disorder (PTSD) (F43.10) Active confirmed Encounters Encounter Location Date Provider Diagnosis [facility] [address] [place] [address] 04/25/2024 Patsy Davis Post traumatic stres s disorder (PTSD) F43.10 [facility] [address] [place] [address] 05/28/2024 Patsy Davis Post traumatic stres s disorder (PTSD) F43.10 [facility] [address] [place] [address] 07/02/2024 Patsy Davis Post traumatic stres s disorder (PTSD) F43.10 [facility] [address] [place] [address] 09/03/2024 Patsy Davis Post traumatic stres s disorder (PTSD) F43.10 [facility] [address] [place] [address] 09/26/2024 Patsy Davis Post traumatic stres s disorder (PTSD) F43.10 [facility] [address] [place] [address] 10/22/2024 Patsy Davis Post traumatic stres s disorder (PTSD) F43.10 [facility] [address] [place] [address] 01/21/2025 Patsy Davis Post traumatic stres s disorder (PTSD) F43.10 [facility] [address] [place] [address] 02/20/2025 Patsy Davis Post traumatic stres s disorder (PTSD) F43.10 Assessments Encounter Date Diagnosis (ICD Code) Assessment Notes Treatment Notes Treatment Clinical Notes Section Notes 04/25/2024 Post traumatic stress disorder (PTSD) (ICD-10 - F43.10) 05/28/2024 Post traumatic stress disorder (PTSD) (ICD-10 - F43.10) 07/02/2024 Post traumatic stress disorder (PTSD) (ICD-10 - F43.10) 09/03/2024 Post traumatic stress disorder (PTSD) (ICD-10 - F43.10) 09/26/2024 Post traumatic stress disorder (PTSD) (ICD-10 - F43.10) 10/22/2024 Post traumatic stress disorder (PTSD) (ICD-10 - F43.10) 01/21/2025 Post traumatic stress disorder (PTSD) (ICD-10 - F43.10) 02/20/2025 Post traumatic stress disorder (PTSD) (ICD-10 - F43.10) Plan Of Treatment Next Appt Details Provider Name:Patsy Billy j carlos, 03/06/2025 05:00:00 PM, [address] [place] [address], [phone], Provider Name:Patsy whitman, 04/10/2025 04:30:00 PM, [address] [place], [address], Insurance Providers Payer Name Payer Address Payer Phone Subscriber Number Group Number Insured Name Patient Relationship to Insured Coverage Start Date Coverage End Date [employer] [facility] [id number] [place] [address] [phone] [id number] SHIN ANTONIO Self - patient is the insured 8
--- OUTSIDE RECORDS SUMMARY | 2025-02-25 10:29 | XMS_ITS | Encounter Summary ---
Author Organization [facility] Address [address] [place] [address] Care Team Providers Care Rougher Helper Name Role Phone Olaf Ramsey MD Primary Care Provider [phone] Encounter Details Date Type Department Care Team ([facility] Contact Info) Description 02/08/2023 Abstract LARON Hartleyrodrigo CRUZ [address] [place] [address] Nimo Craig CNM [address] [place], [place] [phone] Social History Tobacco Use Types Packs/Day Years Used Date Smoking Tobacco: Never Smokeless Tobacco: Never Alcohol Use Standard Drinks/Week Comments Never 0 (1 standard drink = 0.6 oz pur e alcohol) caffeine: none Comments Yes Sex and Gender Information Value Date Recorded Sex Assigned at Not on file Legal Sex Female 7:09 PM EDT Gender Identity Not on file Sexual Orientation Not on file COVID-19 Exposure Response Date Recorded In the last 10 days, have yo u been in contact with someone who was confirmed or suspected to have Coronavirus/COVID-19? No / Unsure 02/09/2023 12:22 PM EDT documented as of this encounter Plan of Treatment Upcoming Encounters Date Type Department Care Team (Late Contact Info) Description 12/16/2025 3:00 PM EDT Office Visit LARON CRUZ [address] [place] [address] Luis Camacho DO [address] [place] [address] documented as of this encounter Goals Goal Patient Goal Type Associated Problems Recent Progress Patient-Stated? Author Reminders Care Plan OB Reminders No Open Scheduling, Background documented as of this encounter Visit Diagnoses Not on filedocumented in this encounter Additional Health Concerns Active Problems Noted Date Diagnosed Date OB Reminders 01/02/2023 documented as of this encounter Care Teams Rougher Helper Relationship Specialty Start Date End Date Olaf Ramsey MD PCP - General Family Medicine 12/16/22 documented as of this encounter
--- OUTSIDE RECORDS SUMMARY | 2025-02-25 10:29 | XMS_ITS | Clinical Summary ---
Author Organization [facility] Address [address] [place] [address] Care Team Providers Care Stabber Name Role Phone Unavailable Primary Care Provider Unavailabl e Social History Tobacco Use Types Packs/Day Years Used Date Smoking Tobacco: Never Assessed [place] Safety & Environment Answer Date Rec orded Fear of Current or Ex-Partner Not on file Emotionally Abused Not on file 09/07/2023 Physically Abused Not on file 09/07/2023 Sexually Abused Not on file 09/07/2023 Physically or Sexually Abused Not on file Comments Unknown Sex and Gender Information Value Date Recorded Sex Assigned at Not on file Legal Sex Female 12:41 AM EDT Gender Identity Not on file Sexual Orientation Not on file Last Filed Vital Signs Vital Sign Reading Time Taken Comments Blood Pressure 125/72 06/01/2021 4:03 PM EST Pulse - - Temperature - - Respiratory Rate - - Oxygen Saturation 99% 06/01/2021 3:59 PM EST Inhaled Oxygen Concentration - - Weight 112 kg (248 lb) 03/04/2022 9:46 AM EDT Height 165.1 cm (5' 5 ) 03/04/2022 9:46 AM EDT Body Mass Index 41.27 03/04/2022 9:46 AM EDT Plan of Treatment Health Maintenance Due Date Last Done Comments Depression Screening 2000 Varicella Vaccines (1 of 2 - 13+ 2-dose series) 2001 Hepatitis B Vaccines (1 of 3 - 19+ 3-dose series) 11/12/2007 Pap Smear 2009 Adult Tetanus 2010 Cervical Cancer Screening 2018 HPV/Cotest 2018 Influenza Vaccine (#1) 2025 Zoster Vaccines (1 of 2) 2038 HIB Vaccines Aged Out No longer eligi ble based on patient's age to complete this topic HPV Vaccines Aged Out No longer eligi ble based on patient's age to complete this topic IPV Vaccines Aged Out No longer eligi ble based on patient's age to complete this topic Meningococcal B Vaccine Aged Out No l onger eligible based on patient's age to complete this topic Meningococcal Vaccine Aged Out No alyssa selvin eligible based on patient's age to complete this topic Pneumococcal Vaccine: Pediat rics (0 to 5 Years) and At-Risk Patients (6 to 64 Years) Aged Out No longer eligible b ased on patient's age to complete this topic Rotavirus Vaccines Aged Out No longer eligible based on patient's age to complete this topic Insurance [employer] [place] [employer]
--- OUTSIDE RECORDS SUMMARY | 2025-02-25 10:29 | XMS_ITS | Patient Health Record ---
Author Organization [facility] [place] Address [address] [place] [address] Care Team Providers Care Scrape Gatherer Name Role Phone Severiano Ramsey Primary Care Provider Allergies No Known Allergies Results Component Value Reference Range Notes CBC AUTO DIFF Reviewed date:01/12/2025 03:01:53 PM Interpretation: Performing Lab: Notes/Report: [facility] , White Blood Count 9.8 4.0-11.0 10 3/uL Red Blood Count 4.48 4.20-5.40 10 6/uL Hemoglobin 11.7 12.0-16.0 g/dL Hematocrit 36.7 36.0-48.0 % Mean Corpuscular Volume 81.9 81.0-99.0 fL Mean Corpuscular Hemoglobin 26.1 26.7-34.0 pg Mean Corpuscular HGB Conc 31.9 29.9-35.2 g/dL Red Cell Distribution Width 14.2 11.0-15.0 % Platelet Count 214 150-450 10 3/uL Mean Platelet Volume 13.4 9.5-13.5 fL Neutrophils Percent Auto 57.0 43.0-75.0 % Lymphocytes Percent Auto 35.6 20.5-60.0 % Monocytes Percent Auto 5.5 1.7-12.0 % Eosinophils Percent Auto 1.3 0.9-7.0 % Basophils Percent Auto 0.3 0.2-2.0 % Immature Granulocytes Pct Auto 0.3 0.0-0.5 % Neutrophils Absolute Auto 5.6 1.4-6.5 10 3/uL Lymphocytes Absolute Auto 3.5 1.2-3.8 10 3/uL Monocytes Absolute Auto 0.5 0.3-0.8 10 3/uL Eosinophils Absolute Auto 0.1 0.0-0.7 10 3/uL Basophils Absolute Auto 0.0 0.0-0.1 10 3/uL Immature Granulocytes Abs Auto 0.03 0.00-0.03 10 3/uL Performing Lab: see note ML - [facility] LB INSULIN Reviewed date:01/12/2025 03:01:53 PM Interpretation: Performing Lab: Notes/Report: [facility] , Insulin 11.3 2.6-24.9 uIU/mL [address] [place], [place] [id number] Viner Operator: Loy Regan PhD, Phone: [phone] Performed at: [facility] Performing Lab: see note - [facility] LB TSH Reviewed date:01/12/2025 03:01:53 PM Interpretation: Performing Lab: Notes/Report: [facility] , Thyroid Stimulating Hormone 1.101 0.358-3.740 u IU/mL Performing Lab: see note ML - [facility] LB T4 Reviewed date:01/12/2025 03:01:53 PM Interpretation: Performing Lab: Notes/Report: [facility] , T4 Thyroxine 8.60 4.80-13.90 ug/dL Performing Lab: see note - [facility] PROF 14(COMP METB) Reviewed date:01/12/2025 03:01:53 PM Interpretation: Performing Lab: Notes/Report: [facility] , Sodium 143 136-145 mmol/L Potassium 4.1 3.5-5.1 mmol/L Chloride 106 98-107 mmol/L Carbon Dioxide 26.6 21.0-32.0 mmol/L Anion Gap 14.5 Glucose 94 74-106 mg/dL Blood Urea Nitrogen 12.0 7.0-18.0 mg/dL Creatinine 0.53 0.55-1.02 mg/dL Estimated GFR ( Yuliet >60 >=60 mL/min/1.73m 2 Estimated GFR (Non- Anahy >60 >=60 mL/min/1.73m 2 BUN Creatinine Ratio 22.6 Calcium 9.1 8.5-10.1 mg/dL Bilirubin Total 0.2 0.2-1.0 mg/dL Aspartate Amino Transferase 12 15-37 U/L Alanine Aminotransferase 24 14-59 U/L Alkaline Phosphatase 49 46-116 U/L Total Protein 7.2 6.4-8.2 g/dL Albumin Level 3.3 3.4-5.0 g/dL Globulin 3.9 Albumin Globulin Ratio 0.8 Performing Lab: see note ML - [facility] LIPID PROFILE Reviewed date:01/12/2025 03:01:53 PM Interpretation: Performing Lab: Notes/Report: [facility] , Triglycerides 84 <=150 mg/dL Cholesterol 161 <=200 mg/dL HDL Cholesterol 54 40-60 mg/dL <40 mg/dl - HIGH CARDIOVASCULAR RISK > or =60 mg/dl - LOW CARDIOVASCULAR RISK LDL Cholesterol Calculated 90.2 130-159 mg/dl BORDERLINE HIGH <100 mg/dl OPTIMAL 160-189 mg/dl HIGH >190 mg/dl VERY HIGH 100-129 mg/dl NEAR OR ABOVE OPTIMAL VLDL CHOLESTEROL 16.8 Chol HDL Ratio 3.0 7.1 - 11.0 MODERATE RISK >11.0 HIGH RISK 3.3 - 4.4 LOW RISK 4.4 - 7.1 AVERAGE RISK Performing Lab: see note ML - [facility] GLYCOHEMOGLOBIN A1C Reviewed date:01/12/2025 03:01:53 PM Interpretation: Performing Lab: Notes/Report: [facility] , Glycohemoglobin A1C 5.1 4.5-6.2 % ACTION SUGGESTED ADA RECOMMENDED LIMIT 4.0 - 6.0 ADA THERAPEUTIC TARGET < 7.0 > 7.0 Estimated Average Glucose 100 Performing Lab: see note ML - [facility] FREE T3 Reviewed date:01/12/2025 03:01:53 PM Interpretation: Performing Lab: Notes/Report: [facility] , Free T3 2.48 2.18-3.98 pg/mL Performing Lab: see note ML - [facility] LB IGP,Aptima HPV,Age Gdln Reviewed date:11/28/2024 08:56:27 PM Interpretation: Performing Lab: Notes/Report: BRUSH-SPATULA CERVIX ENDOCERVIX [facility] , Age Gdln ACOG Testing Note . L-Low Normal,H-High Normal,LL-Alert Low,HH-Alert High Jessica S Bendre MD, [address] [place] [address] No. of containers..01 ThinPrep Vial Source.............Cervix;E ndocervix TESTS RESULT FLAG UNITS REF RANGE LAB FLAG LEGEND: Age Margareto ACOG Ximena... 30-65 01 Clinician Provided Cytology Information <-Panic Low,>-Panic High,A-Abnormal,AA-Critical Abnormal ------ ------ ------ Performed at: 01 =[facility] IGP, Aptima HPV, rfx 16/18,45 Note . Specimen adequacy: 02 Satisfactory for evaluation. No endocervical component is identified. 02 [facility] Ladi Mars, Supervisory Manager Of Loss Prevention Operations (ASCP) Performed at: Test Methodology: Note 02 Performed by: 02 [address] [place] [address] L-Low Normal,H-High Normal,LL-Alert Low,HH-Alert High . 02 HPV Genotype Reflex Note 02 cancer. Both false-positive and false-negative reports do Note: Note 02 the use of an image guided system. Jessica Owens MD, detection of premalignant and malignant conditions of the ------ occur. The Pap smear is a screening test designed to aid in the ------ Criteria not met, HPV Genotype not performed. ------ TESTS RESULT FLAG UNITS REF RANGE LAB FLAG LEGEND: This liquid based ThinPrep(R) pap test was screened with uterine cervix. It is not a diagnostic procedure and DIAGNOSIS: 02 should not be used as the sole means of detecting cervical NEGATIVE FOR INTRAEPITHELIAL LESION OR MALIGNANCY. <-Panic Low,>-Panic High,A-Abnormal,AA-Critical Abnormal HPV Aptima Negative Negative Performed at: - [facility] risk HPV types (16,18,31,33,35,39,45,51,52 ,56,58,59,66,68) without differentiation. Performed at: =[facility] Viner Operator: Jessica Owens MD, Phone: [phone] Viner Operator: Jessica Owens MD, Phone: [phone] This nucleic acid amplification test detects fourteen high- [address] [place], [place] [id number] [address], [place] [id number] Performing Lab: see note - [facility] LB Reason For Referral Reason + FH colon cancer Diagnosis 1 Well adult (Z00.00) Referral Organization [facility] Referring Provider First Name Severiano Referring Provider Last Name Braulio Referring Provider Speciality Family Med micehle Referred Provider Rohith Flores Referred Provider Specialty General Surg kimmy Referral Priority Routine Medications Medication SIG (Take, Route, Frequency, Duration) [...] Question Answer Notes Patient is a nonsmoker Alcohol Screen (Audit-C) Question Answer Notes Did you have a drink containing alcohol in the p ast year? No Points 0 Interpretation Negative AUDIT-C (Standard) Question Answer Notes Did you have a drink containing alcohol in the p ast year? No Points 0 Interpretation Negative Problems Problem Type SNOMED Code ICD Code Onset Dates Problem Status W/U Status Risk Notes Problem Tachycardia (8065592) Tachycardia (R00.0) Active confirmed Problem Anemia (089823171) Anemia (D64.9) Active confirmed Problem Well adult (907989692) Well adult (Z00.00) Active confirmed Problem Left otitis media (H66.92) Active confirmed Vital Signs Blood pressure diastolic 70 mm Hg 01/16/2025 Height 65 in 01/16/2025 Blood pressure systolic 124 mm Hg 01/16/2025 Weight 232.8 lbs 01/16/2025 BMI 38.74 kg/m2 01/16/2025 Procedures Procedure Date Ordered Date Performed Result Body Sit e EKG w Interp & Report - performed 01/16/2025 N/ A Encounters Encounter Location Date Provider Diagnosis [facility] [address] [place] [address] 01/23/2025 Severiano Hoy Tachycardia R00. 0 [facility] [address] [place] [address] 01/09/2025 Severiano Hoy Well adult Z00.[address] [facility] [address] [place] [address] 01/16/2025 Severiano Hoy Tachycardia R00. 0 [facility] [address] [place] [address] 01/12/2025 Severiano Hoy Anemia D64.9 [facility] [address] [place] [address] 01/23/[address] [facility] [address] [place] [address] 03/08/[address] [facility] [address] [place] [address] 04/04/2024 Severiano Ramsey [facility] [address] [place] [address] 05/01/[address] [facility] [address] [place] [address] 12/12/2024 Severiano Ramsey Assessments Encounter Date Diagnosis (ICD Code) Assessment Notes Treatment Notes Treatment Clinical Notes Section Notes 01/09/2025 Well adult (ICD-10 - Z00.00) 01/16/2025 Tachycardia (ICD-10 - R00.0) want to hold off opn tsting - had it in the past 01/23/2025 Tachycardia (ICD-10 - R00.0) 01/12/2025 Anemia (ICD-10 - D64.9) Plan Of Treatment Pending Test Test Name Order Date CMP (COMPLETE METABOLIC PANEL) 4 HEMOGLOBIN A1C (GLYCO) 01/09/2025 HEMOGLOBIN A1C (GLYCO) 12/22/2023 LIPID PANEL (CHOL/TRIG/HDL/LDL) 01/10/20 25 LIPID PANEL (CHOL/TRIG/HDL/LDL) 12/22/19 24 CBC WITH DIFF 12/22/2023 EKG w Interp & Report - performed 2024 Insulin Level 12/22/2023 Insulin Level 01/09/2025 CBC W/AUTO DIFF 12/25/2023 CBC AUTO DIFF 01/12/2025 FERRITIN 12/25/2023 IRON 12/25/2023 THYROID PANEL (T4/TSH/FREE T3) 5 THYROID PANEL (T4/TSH/FREE T3) 4 CMP (COMP MET [place]) w/eGFR CKD-EPI 2024 CBC WITH DIFF 01/09/2025 Insurance Providers Payer Name Payer Address Payer Phone Subscriber Number Group Number Insured Name Patient Relationship to Insured Coverage Start Date Coverage End Date [employer] [id number] [place], [place] [id number] Ronny Curran Spouse - patient is the spouse of the insured Medical (General) History Medical History History ICD Code Ganglion cyst M67.40 Leiomyoma D21.9 Supraventricular tachycardia, unspecifie d I47.10 Palpitations R00.2 COVID-19 U07.1 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
--- OUTSIDE RECORDS SUMMARY | 2025-02-25 10:29 | XMS_ITS | Encounter Summary ---
Author Organization [facility] Address [address] [place] [address] Care Team Providers Care Power Transformer Inspector Name Role Phone Olaf Ramsey MD Primary Care Provider [phone] Encounter Details Date Type Department Care Team ([facility] Contact Info) Description 02/16/2023 Abstract LARON Madisonrodrigo CRUZ [address] [place] [address] Nimo Craig CNM [address] [place], [place] [phone] Social History Tobacco Use Types Packs/Day Years [...] suspected to have Coronavirus/COVID-19? No / Unsure 02/16/2023 1:33 PM EDT documented as of this encounter Plan of Treatment Upcoming Encounters Date Type Department Care Team (Late Contact Info) Description 12/16/2025 3:00 PM EDT Office Visit LARON CRUZ [address] [place] [address] Luis Camacho DO [address] [place] [address] documented as of this encounter Goals Goal Patient Goal Type Associated Problems Recent Progress Patient-Stated? Author Reminders Care Plan OB Reminders No Open Scheduling, Background documented as of this encounter Visit Diagnoses Not on filedocumented in this encounter Additional Health Concerns Active Problems Noted Date Diagnosed Date OB Reminders 01/02/2023 documented as of this encounter Care Teams Power Transformer Inspector Relationship Specialty Start Date End Date Olaf Ramsey MD PCP - General Family Medicine 12/16/22 documented as of this encounter
--- OUTSIDE RECORDS SUMMARY | 2025-02-25 10:29 | XMS_ITS | Clinical Summary ---
Author Organization [facility] Address [address], [address] [place] [address] Care Team Providers Care Classified Ad Clerk Name Role Phone Olaf Ramsey MD Primary Care Provider [phone] Allergies Active Allergy Reactions Criticality Noted Date Comments Adhesive Tape 12/14/2017 Bandaide-hives/burning Wound Dressing Adhesive Hives,Rash Low 06/16/2016 And welts Medications magnesium oxide (MAG-OX) 400 MG tablet 10/17/2022 Active BABY ASPIRIN PO Take by mouth Active Vit-Fe Fumarate-FA ( VITAMINS PO) Take by mouth Active senna-docusate (PERICOLACE) 8.6-50 MG per tablet Senexon-S 8.6 mg-50 mg tablet TAKE 2 TABLETS BY MOUTH TWICE A DAY NEEDED Active labetalol (NORMODYNE) 100 MG tablet Take 1 tablet by mouth 2 times daily 12/17/2022 Active PROFE 391.3 (180 Fe) MG CAPS Take 1 capsule by mouth every morning 12/14/2022 Active calcium carbonate (TUMS) 500 MG chewable tablet Take 1 tablet by mouth daily Active predniSONE (DELTASONE) 5 MG tablet TAKE 1/2 TABLET ONCE A DAY *TAKE WITH 1MG DOSE TO EQUAL 3.5MG DAILY* 01/27/2023 Active Active Problems Patient Care Coordination No te Formatting of this note migh t be different from the original. EDC in book = 03/30/18 [facility] [place] [facility] risk assesment form = NA testing = Had with previous dr History C/S ? = Yes x 2-considering -information given Gender = Circ = Ped = Breast or bottle = Breast Epidural/natural = RH factor = Rhogam? = Flu shot = TDAP (27-36 wks)= GBS = Problem Noted Date Diagnosed Date SVT (supraventricular tachycardia) 06/22/2018 ventricular septal def ect affecting antepartum care of mother 01/11/2018 Suspected anomaly not found 01/11/2018 Obesity affecting in third trimester 0 01/11/2018 Previous delivery, antepartum condition or complication 01/11/2018 H/O macrosomia in infant in prior , currently , third trimester 01/11/2018 Family History Medical History Relation Name Comments Asthma Brother Diabetes Brother Hypertension Father Cancer Maternal Grandfather lung ca ncer Diabetes Mother Cancer Paternal Grandfather Relation Name Status Comments Brother Alive Father Alive Maternal Grandfather Mother Alive Paternal Grandfather Sister stillborn Social History Tobacco Use Types Packs/Day Years Used Date Smoking Tobacco: Never Smokeless Tobacco: Never Tobacco Cessation:Counseling Given: No Alcohol Use Standard Drinks/Week Comments No 0 (1 standard drink = 0.6 oz pur e alcohol) PHQ-2 Answer Date Recorded PHQ-2 Score 0 10/17/2018 Comments No Sex and Gender Information Value Date Recorded Sex Assigned at Not on file Legal Sex Female 5:50 PM EDT Gender Identity Not on file Sexual Orientation Not on file Last Filed Vital Signs Vital Sign Reading Time Taken Comments Blood Pressure 120/62 02/15/2023 12:20 PM EDT Pulse 102 02/15/2023 12:20 PM EDT Temperature 36.8 C (98.2 F) 02/15/2023 12:20 PM EDT Respiratory Rate 16 02/15/2023 12:20 PM EDT Oxygen Saturation 98% 11/26/2018 10:41 AM EDT Inhaled Oxygen Concentration - - Weight 134.7 kg (297 lb) 02/15/2023 12:20 PM EDT Height 165.1 cm (5' 5 ) 02/15/2023 12:20 PM EDT Body Mass Index 49.42 02/15/2023 12:20 PM EDT Plan of Treatment Health Maintenance Due Date Last Done Comments Depression Screen 2000 Varicella vaccine (1 of 2 - 13+ 2-dose series) 2001 HIV screen 11/12/2003 Hepatitis C screen 2006 Hepatitis B vaccine (1 of 3 - 19+ 3-dose series) 11/12/2007 Pap smear 2009 Cervical cancer screen 2018 HPV (without or with Pap) 2018 COVID-19 Vaccine (3 - 2023-2 5 season) 2024 03/17/2021, 02/24/2021 Flu vaccine (#1) 02/14/2025 04/01/2022, 06/20/2017, 04/16/2017 DTaP/Tdap/Td vaccine (2 - Td or Tdap) 03/01/2032 03/01/2022 HPV vaccine Completed 02/11/2013, 10/15/2012, 08/13/2012 Hepatitis A vaccine Aged Out No longe r eligible based on patient's age to complete this topic Hib vaccine Aged Out No longer eligi ble based on patient's age to complete this topic Meningococcal (ACWY) vaccine Aged Out No longer eligible based on patient's age to complete this topic Meningococcal B vaccine Aged Out No l onger eligible based on patient's age to complete this topic Pneumococcal 0-49 years Vaccine Aged Out No longer eligible b ased on patient's age to complete this topic Polio vaccine Aged Out No longer elig ible based on patient's age to complete this topic [place] [address] [place] [address] [facility] Care Teams Classified Ad Clerk Relationship Specialty Start Date End Date Olaf Ramsey MD [address] [phone] PCP - General Family Medicine 11/16/22
--- OUTSIDE RECORDS SUMMARY | 2025-02-25 10:29 | XMS_ITS | Clinical Summary ---
Author Organization [facility] Address [address] [place], [place] [id number] Care Team Providers Care Dowel Setting Machine Operator Name Role Phone Lidia Cohen MD Primary Care Provider + Allergies Active Allergy Reactions Criticality Noted Date Comments Adhesive Tape (Rosins) Rash 06/16/2016 And welts Medications progesterone micronized (PROMETRIUM) 200 mg capsule Use 2 capsules vaginally twice daily. As directed if you are . 60 capsule 2 8 Active Family History Medical History Relation Comments COPD Father Hypertension Father mini heart attack [Other] Father borderline diabetes [Other] Maternal Grandfather lung cancer [Other] Maternal Grandfather CHF [Other] Maternal Grandmother Colon Cancer Maternal Uncle mother's 1st old er brother Heart Maternal Uncle heart issues (2n d older brother) Diabetes Mother Type II heart attack [Other] Paternal Grandfather o f heart attack Diabetes Paternal Grandmother Hypertension Paternal Grandmother mental health [Other] Paternal Grandmother stillbirth [Other] Sister older sister is Relation Status Comments Father Maternal Grandfather Maternal Grandmother Maternal Uncle Mother Paternal Grandfather Paternal Grandmother Sister Social History Tobacco Use Types Packs/Day Years [...] Sign Reading Time Taken Comments Blood Pressure 127/85 07/04/2016 8:44 AM EST Pulse 88 07/04/2016 8:44 AM EST Temperature - - Respiratory Rate - - Oxygen Saturation - - Inhaled Oxygen Concentration - - Weight 129.5 kg (285 lb 8 oz) 07/04/2016 8:44 AM EST Height 163.8 cm (5' 4.5 ) 06/16/2016 11:35 AM ES T Body Mass Index 48.25 06/16/2016 11:35 AM EST Plan of Treatment Health Maintenance Due Date Last Done Comments Anxiety Screening 2006 Depression Screening 2006 HIV Screening 2006 Hepatitis C Screening 2006 DTaP,Tdap,Td Vaccine (1 - Tdap) 11/12/2007 Hepatitis B Vaccine (1 of 3 - 19+ 3-dose series) 11/11 Cervical Cancer Screening 2009 Influenza Vaccine (#1) 2025 Insurance HOSPITAL/MEDICAL GENERIC MEDICAID [place] Care Teams Dowel Setting Machine Operator Relationship Specialty Start Date End Date Lidia Cohen MD PCP - General Family Medicine 07/04/16
== END 2025-02-25 10:26 | disposition home or self-care (01) ==
LOC: PST 10:25
PROVIDERS: PCP Family Medicine; Visit Provider Surgery
DX: Z01.818 Encounter for other preprocedural examination (principal); Z80.0 Family history of malignant neoplasm of digestive organs; Z12.11 Encounter for screening for malignant neoplasm of colon

== ENCOUNTER 2025-03-12 06:03 | Day surgery (SDC) | payer BC, SELFPAY ==
--- NOTE | 2025-03-12 | OP_ITS ---
OPERATION DATE: 03/12/2025 PREOPERATIVE DIAGNOSIS: Family history of colon cancer, colorectal screening. POSTOPERATIVE DIAGNOSIS: Normal colonoscopy to cecum. PROCEDURE: Colonoscopy to cecum: SURGEON: Rohith Flores M.D. ANESTHESIA: Monitored anesthesia care. ESTIMATED BLOOD LOSS: Zero. INDICATIONS AND CONSENT: Patient is a 34-year-old female with a family history of colon cancer in her mother, who presents for screening colonoscopy. Indications, risks, benefits, alternatives of proceeding with colonoscopy were explained extensively to the patient, including the risks of bleeding, colon perforation or anesthetic complications. All of her questions were answered. Informed consent was obtained. PROCEDURE: Patient brought to the operating room, placed in the left lateral decubitus position. Monitored anesthesia care was provided. Rectal exam was performed which showed no masses or blood. The scope was inserted into the anal canal. Under direct visualization was advanced. With the aid of abdominal compression, it was advanced to the cecum where cecal markings were clearly identified. Upon withdrawal of the scope, mucosal surfaces were carefully examined. There was noted to be a good prep, some liquid stool throughout the colon that was able to be suctioned. There were no mass lesions or polyps. No inflammatory changes or ulcerations. No significant diverticulosis. There was some redundancy of the colon. Scope was retroflexed in the anal canal. There were some prominent rectal veins. No significant hemorrhoidal disease. No evidence of bleeding. The scope was then withdrawn. Patient tolerated procedure well, was sent to recovery room in good condition. Follow up surveillance colonoscopy should be in five years due to the family history. CC: Richard Ramirez
--- OUTSIDE RECORDS SUMMARY | 2025-03-12 06:06 | XMS_ITS | CCD ---
Author Organization [facility] CliniSyin Care Team Providers Care Lead Burner Supervisor Name Role Phone GINGER, DAT S [...] Care Provider UnavailLidia Goodrich Primary Care Provider NABOR MARROQUIN Referring Unavailable PROVIDER, UNKNOWN Attending [...] LUIS Attending Unavailable DOUG, LUIS Admitting Unavailable NEWCOMB, DR JR Da Silva Consulting Unavailable ELSA [...] Unavailable ZIEBER, DR LINO Funk Consulting Unavailable NEWCOMB, DR JR Da Silva Consulting Unavailable HOY [...] Marroquin DO Unavailable Duncan Nguyễn MD Unavailable Magnus ENGLISH, Yudy Unavailable Jenna Bansal Primary Care Unavailable Alanis Zaidi Admitting Unavailable Alanis Zaidi Attending Unavailable Jenna Bansal Primary Care Unavailable Luis Camacho Admitting Unavailable Luis Camacho Attending Unavailable Christopher Hunter MD Primary Care Provider [phone] Christopher Hunter MD Primary Care Provider [phone] LUIS CAMACHO Attending Unavailable LUIS CAMACHO Attending Unavailable Christopher Hunter Primary Care Physician Rohith FONTANA Attending Unavailable Christopher Hunter Referring Unavailable Allergies Allergy Classification Reported Allergen(s) Allergy Type Date of Onset Reaction(s) Facility Adhesive Tape (1 source) Adhesive Tape Substance Allergy 6 Rash [facility] (2 sources) BANDAGE TAPE; Translations: [BANDAGE TAPE] Propensity to adverse reactions (disorder) 6 Rash [facility] Repository (3 sources) Adhesive Tape; Translations: [ADHESIVE TAPE] Propensity to adverse reactions (disorder) 8 The [facility] Repository (3 sources) Adhesive bandage; Translations: [Adhesive Bandage] Drug allergy (disorder) Eruption of skin (disorder) The [facility] Repository (1 source) tape adhesive Propensity to adverse reactions rash Jacked Other (1 source) No Known Medication Allergies; Translations: [No Known Medication Allergies] Propensity to adverse reactions (disorder) [facility] Repository NEGATED: Highlighted row has been ruled out! (1 source) Drug allergy [facility] Medications Current Medications Medication Drug Class(es) Dates Sig (Normalized) Sig (Original) 0.5 ML semaglutide 0.5 MG/ML Auto-Injector (1 source) Start: 01-15-2025 inject 0.25 mg by subcutaneous injection every week semaglutide 0.25 mg/0.5 mL (0.25 mg dose) subcutaneous solution (Wegovy) 0.25 mg, SubCutaneous, qWeek, Refills(s) 0 Start Date: 01/15/25 Status: Ordered Repeat number: 1 Aircast Sport Ankle Brace/Left - (1 source) [...] MG-MCG tablet Indications: PMDD (premenstrual dysphoric disorder) (CMS/HCC) Take 1 tablet by mouth Daily Take [...] Active ferrous sulfate 325 mg oral tablet (2 sources) Start: 01-15-2025 take 1 tablet by mouth twice daily ferrous sulfate 325 mg Tab 325 mg = 1 tab(s), Oral, BID, Refills(s) 0 Start Date: 01/15/25 Status: Ordered Repeat number: 1 Start: 09-16-2020 take 1 tablet by chaim th twice daily at mealtime ferrous sulfate 325 [...] NEEDED FOR 30 DAYS 0 10/17/2022 Active 24 hr metoprolol succinate 25 mg extended release oral tablet (2 sources) beta-Adrenergic Tiago Start: 01-29-2025 take 1 tablet by mouth twice daily metoprolol succinate 25 mg ER Tab 25 mg, Oral, BID, Refills(s) 0 Start Date: 01/29/25 Status: Ordered Repeat number: 1 Start: 07-30-2020 take 1 tablet by chaim th twice daily metoprolol (LOPRESSOR) 25 MG tablet Take 1 Tablet by mouth 2 times daily. 60 Tablet 3 07/30/2020 Active Pediatric Multiple Vitamins (FLINSTONES GUMMIES OMEGA-3 DHA PO) (6 sources) Pediatric Multip le Vitamins (FLINSTONES GUMMIES OMEGA-3 DHA PO) Take by mouth Active polyethylene glycol 3350 58710 mg powder for oral solution (1 source) Osmotic Laxative Start: 09-16-19 21 polyethylene glycol (MIRALAX) packet Dissolve 1 Packet in 8 ounces of liquid and drink every 12 hours as needed (for constipation not relieved by Colace). 10 Each 3 09/15/2020 Active TABS tablet (1 source) Start: 09-17-19 21 take 1 tablet by mouth once daily TABS tablet Take 1 Tablet by mouth daily. 30 Tablet 5 09/16/2020 Active Vit-Fe Fumarate-FA ( VITAMINS PO) (1 source) Vit-Fe Fumarate-FA ( VITAMINS PO) Take by mouth 0 Active Semaglutide-Weight Management 1.7 MG/0.75ML solution auto-injector (6 sources) Start: 03-08-20 24 inject 0.5 mL by subcutaneous injection every week Semaglutide-Weight Management 1.7 MG/0.75ML solution auto-injector 0.5 mL Subcutaneous Once Weekly for 30 days 03/08/2024 Active sennosides, fdc 8.6 mg oral tablet (1 source) Start: 09-16-19 21 take 1 tablet by mouth at bedtime senna (SENOKOT) 8.6 MG tablet Take 1 Tablet by mouth at bedtime. 30 Tablet 0 09/15/2020 Active simethicone 80 mg chewable tablet (1 source) Start: 09-16-19 take 1 tablet by mouth every six hours as needed simethicone (GAS-X) 80 MG chewable tablet Take 1 Tablet by mouth every 6 hours as needed for Flatulence. 30 Tablet 3 09/15/2020 Active {24 (drospirenone 4 MG Oral Tablet) / 4 (Inert Ingredients 1 MG Oral Tablet) } Pack [Slynd] (1 source) Start: 01-30-20 Slynd 4 mg oral tablet Oral, Refills(s) 0 Start Date: 01/29/25 Status: Ordered Repeat number: 1 Completed/Discontinued Medications Medication Drug Class(es) Dates Sig [...] Problem Date Documented Date Episodic/Chronic Cardiac dysrhythmias (10 sources) Supraventricular tachycardia; Translations: [Supraventricular tachycardia] Onset: 06-22-2018 06-22-2018 Chronic Coagulation and hemorrhagic disorders (7 sources) Disorder of hemostatic system; Translations: [Coagulation defect, unspecified] Onset: 01-24-2023 01-24-2023 Chronic Deficiency and other anemia (1 source) Anemia 01-15-2025 Episodic Genitourinary symptoms and ill-defined conditions (1 source) [...] source) Injury, unspecified, initial encounter Episodic Other nutritional; endocrine; and metabolic disorders (1 source) Body mass index 30+ - obesity 01-29-2025 Chronic Other nutritional; endocrine; and metabolic disorders (1 source) Obesity caused by energy imbalance 01-15-2025 Chronic Other and delivery including normal (9 sources) [...] Reduced libido; Translations: [Decreased libido] 11-25-2024 Episodic Residual codes; unclassified (1 source) Family history of malignant neoplasm of digestive organ; Translations: [Family history of malignant neoplasm of digestive organs] Onset: 01-29-2025 Episodic Residual codes; unclassified (1 source) Family history of cancer of colon 01-15-2025 Episodic Sprains and strains (1 source) Sprain [...] GDLNon AGE GDLN ACOG TESTING Note . [facility] Comment on above: TESTS RESULT FLAG UN ITS REF RANGE LAB Clinician Provided Cytology Information Source.............Cervix;Endocervix No. of containers..01 ThinPrep Vial Age Nataly TALBOT Ximena... 28 FLAG LEGEND: L-Low Normal,H-High Normal,LL-Alert Low,HH-Alert High <-Panic Low,>-Panic High,A-Abnormal,AA-Critical Abnormal Performed at: 01 =G [address] [phone] Jessica Owens MD, HPV APTIMA Negative Negative [facility] Comment on above: This nucleic acid am plification test detects fourteen high- risk HPV types (16,18,31,33,35,39,45,51,52,56,58,59,66,68) without differentiation. Performed at: =[address] [id number] Meat Dresser: Jessica Owens MD, Phone: [phone] Performed at: - [address] [id number] Meat Dresser: Jessica Owens MD, Phone: [phone] IGP, APTIMA HPV, RFX 16/18,45 Note . [facility] Comment on above: TESTS RESULT FLAG UN ITS REF RANGE LAB DIAGNOSIS: 02 NEGATIVE FOR INTRAEPITHELIAL LESION OR MALIGNANCY. Specimen adequacy: 02 Satisfactory for evaluation. No endocervical component is identified. Performed by: 02 Ladi Mars, Supervisory Assistant Media Planner ([facility]) . 02 Note: Note 02 The [...] <-Panic Low,>-Panic High,A-Abnormal,AA-Critical Abnormal Performed at: [address] [phone] Jessica Owens MD, BRUSH-SPATULA CERVIX ENDOCERVIX [facility] Urinalysis macro (dipstick) panel (U)on 11-25-2024 Bilirubin, UA Negative Negative - 4(70) +++ mg/dL [facility] Blood, UA Negative Negative - 50 Hugo/mcL [facility] Clarity, UA Clear [facility] Color, UA Yellow [facility] Glucose, UA Negative Negative - 2000(110) ++++ mg/dL [facility] Interpretation and review of laboratory results Normal [facility] Ketones, UA Negative Negative - 160(16) ++++ mg/dL [facility] Leukocytes, UA Negative Negative - 500+++ Sally/mcL [facility] Nitrite, UA Negative Negative - Positive [facility] pH, UA 6.5 5 - 9 [facility] Protein, UA Negative Negative - 1999(20) ++++ mg/dL [facility] Spec Grav, UA 1.005 1 - 1.03 [facility] Urobilinogen, UA 0.2 0.2 - 12 mg/dL [facility] XR ankle LT min 3V*on 2022 XR ankle LT min 3V* [facility] [address] [place] [address] XRay Report Signed Patient: Kavon Swain MR#: [id number] : 1990 Acct:[id number] Age/Sex: 32 / F ADM Date: 07/06/23 Loc: [facility] Room: Type: [facility] Attending Dr: Alanis Zaidi APRN Copies to: [...] Vira Pulliam M.D.07/06/2023 5:18 PM Dictation Location: [place] [address] Transcribed By: [facility] 07/06/231717 Dictated By: Vira Pulliam MD 07/06/231715 Signed By: 07/06/23[address] [facility] XR ankle LT min 3V* [facility] InfoRemate Other XR ankle LT min 3V* [facility] [employer] Other XR ankle LT min 3V* [address] [place] [address] [employer] Other XR ankle LT min 3V* [place] [address] Jacked Other XR ankle LT min 3V* XRay Report Jacked Other XR ankle LT min 3V* Signed Jacked Other XR ankle LT min 3V* Patient: Kavon Swain MR#: Jacked Other XR ankle LT min 3V* [id number] Jacked Other XR ankle LT min 3V* : 1990 Acct:[id number] Jacked Other XR ankle LT min 3V* Age/Sex: 32 / F ADM Date: 07/06/23 Jacked Other XR ankle LT min 3V* Loc: XDUCLY Room: Type: [facility] CLI Jacked Other XR ankle LT min 3V* Attending Dr: Alanis Zaidi BANNER Jacked Other XR ankle LT min 3V* Copies to: Alanis Zaidi KOSHER INSPECTOR Jacked Other XR ankle LT min 3V* Ordering Provider: Alanis Zaidi APRN Jacked Other XR ankle LT min 3V* Date of Service: 07/06/23 Jacked Other XR ankle LT min 3V* XR/XR ankle LT min 3V*: Injury Jacked Other XR ankle LT min 3V* LEFT ANKLE - 3 views Jacked Other XR ankle LT min 3V* CLINICAL DATA: Twisting injury left ankle 12 days ago with continued pain and bruising. Jacked Other XR ankle LT min 3V* COMPARISON: None Jacked Other XR ankle LT min 3V* AP, lateral and oblique views were obtained. There is no evidence of fracture or dislocation. Jacked Other XR ankle LT min 3V* The talar dome is intact. There is diffuse soft tissue swelling. Jacked Other XR ankle LT min 3V* XR/XR ankle LT min 3V* Jacked Other XR ankle LT min 3V* IMPRESSION: Jacked Other XR ankle LT min 3V* NO ACUTE BONY INJURY. Cognii Other XR ankle LT min 3V* Impression dictated by: Vira Pulliam M.D.07/06/2023 5:18 PM Jacked Other XR ankle LT min 3V* Dictation Location: [place] [address] Jacked Other XR ankle LT min 3V* Transcribed By: [facility] 07/06/23 [facility] Jacked Other XR ankle LT min 3V* Dictated By: Vira Pulliam MD 07/06/23 [facility] Jacked Other XR ankle LT min 3V* Signed By: Jacked Other XR ankle LT min 3V* 07/06/23 [facility] Jacked Other Glucose Tolerance 3 Houron 0 12-24-2022 Glucose Tolerance 3 Hour Normal [facility] Comment on above: Order Comment: FASTI [...] HOUR NOT ESTABLISHED < 140 PERFORMED BY: [facility] [address] [place] [id number] PATHOLOGIST CLEANING MACHINE OPERATOR SHELBI CHILEL M.D. Performed By: #### G TT3 #### [address] Lupus Anticoagulanton 2022 Dilute Gregory Viper Negative Normal NLUP [facility] Comment on above: Performed By: #### P ROSAC, LUPPRO, HOCYS, PROCAC, AT3A #### [facility] [address] [place] [address] Meat Dresser: Nile Cesar MD #### AF5MUT, AMTHFR #### [facility] [address] [place], [place] [id number] Meat Dresser: Thang Hull MD #### AAFPM #### [address] [address] Meat Dresser: Nile Cesar MD [facility] [address] [place] [phone] Meat Dresser: Thang Hull MD Protein S Activityon 023 Protein S Activity 76 % Normal 59-130 [facility] Comment on above: Result Comment: Patients on [...] AT3A #### [facility] [address] [place] [address] Meat Dresser: Nile Cesar MD #### AF5MUT, AMTHFR #### [facility] [address] [place] [address] Meat Dresser: Thang Hull MD #### AAFPM #### [address] [address] Meat Dresser: Nile Cesar MD [facility] [address] [place] [address] Meat Dresser: Thang Hull MD Antithrombin III Jalen 11-02 Antithrombin III Act 94 % Normal 83-122 [facility] Comment on above: Result Comment: Patients receiving Hirudin may have a falsely decreased Antitrombin III Activity. Performed By: #### P ROSAC, LUPPRO, HOCYS, PROCAC, AT3A #### [address] [address] Meat Dresser: Nile Cesar MD #### AF5MUT, AMTHFR #### [facility] [address] [place] [address] Meat Dresser: Thang Hull MD #### AAFPM #### [address] [address] Meat Dresser: Nile Cesar MD [address] [phone] Meat Dresser: Thang Hull MD Protein C Activityon 023 Protein C Activity >150 Normal >80 [facility] Comment on above: Result Comment: Patients on [...] P ROSAC, LUPPRO, HOCYS, PROCAC, AT3A #### [facility] [address] [place] [address] Meat Dresser: Nile Cesar MD #### AF5MUT, AMTHFR #### [facility] [address] [place] [address] Meat Dresser: Thang Hull MD #### AAFPM #### [address] [address] Meat Dresser: Nile Cesar MD [facility] [address] [place] [address] Meat Dresser: Thang Hull MD Factor V Mutationon 11-02-19 23 F 5 SPECIMEN Whole Blood Normal [facility] Comment on above: Performed By: #### P ROSAC, LUPPRO, HOCYS, PROCAC, AT3A #### [address] [address] Meat Dresser: Nile Cesar MD #### AF5MUT, AMTHFR #### [facility] [address] [place] [address] Meat Dresser: Thang Hull MD #### AAFPM #### [address] [address] Meat Dresser: Nile Cesar MD [facility] [address] [place] [address] Meat Dresser: Thang Hull MD FACTOR 5 MUTATION Negative Normal [facility] Comment on above: Result Comment: (NOT E) Indication for testing: Assess genetic risk for thrombosis. NEGATIVE: The factor V Leiden variant, c.1601G>A; p.[id number], was not detected. This does not exclude [...] function in the F5 gene variant c.1601G>A (p.Bjx523Tsp). Legacy nomenclature: [id number] (1691G>A) CLINICAL SENSITIVITY: 20-50 percent of individuals with an isolated VTE have the FVL variant. METHODOLOGY: Polymerase chain reaction and fluorescence monitoring. ANALYTICAL SENSITIVITY AND SPECIFICITY: 99 percent. LIMITATIONS: Diagnostic errors can occur due to rare sequence variations. F5 gene mutations, other than p.Nib108Ewn, will not be detected. This test was developed and its performance characteristics determined by [facility]. It has not been cleared or approved by the [place] Food and Drug Administration. This test was performed in a CLIA certified laboratory and is intended for clinical purposes. Counseling and informed consent are recommended for genetic testing. Consent forms are available online. Performed by [facility], [address] [place] [id number] [email or web address], Mike Stratton MD, PHD, Lab. Director Performed By: #### P ROSAC, LUPPRO, HOCYS, PROCAC, AT3A #### [address] [phone] Meat Dresser: Nile Cesar MD #### AF5MUT, AMTHFR #### [facility] [address] [place] [address] Meat Dresser: Thang Hull MD #### AAFPM #### [facility] [address] [place] [address] Meat Dresser: Nile Cesar MD [facility] [address] [place] [address] Meat Dresser: Thang Hull MD AFP, Maternalon 10-29-2022 Determined by Ultrasound [facility] Comment on above: Performed By: #### P ROSAC, LUPPRO, HOCYS, PROCAC, AT3A #### [facility] [address] [place] [address] Meat Dresser: Nile Cesar MD #### AF5MUT, AMTHFR #### [facility] [address] [place] [address] Meat Dresser: Thang Hull MD #### AAFPM #### [facility] [address] [place] [address] Meat Dresser: Nile Cesar MD [facility] [address] [place] [address] Meat Dresser: Thang Hull MD Due Date SEE NOTE [facility] Comment on above: Result Comment: Resu lts for Estimated Due Date: 03 24 23 Performed By: #### P ROSAC, LUPPRO, HOCYS, PROCAC, AT3A #### [facility] [address] [place] [address] Meat Dresser: Nile Cesar MD #### AF5MUT, AMTHFR #### [facility] [address] [place] [address] Meat Dresser: Thang Hull MD #### AAFPM #### [facility] [address] [place] [address] Meat Dresser: Nile Cesar MD [facility] [address] [place] [address] Meat Dresser: Thang Hull MD Family History No [facility] Comment on above: Performed By: #### P ROSAC, LUPPRO, HOCYS, PROCAC, AT3A #### [facility] [address] [place] [address] Meat Dresser: Nile Cesar MD #### AF5MUT, AMTHFR #### [facility] [address] [place] [address] Meat Dresser: Thang Hull MD #### AAFPM #### [address] [address] Meat Dresser: Nile Cesar MD [facility] [address] [place] [address] Meat Dresser: Thang Hull MD Gestat Age (exact) 18 wks, 5 days [facility] Comment on above: Performed By: #### P ROSAC, LUPPRO, HOCYS, PROCAC, AT3A #### [facility] [address] [place] [address] Meat Dresser: Nile Cesar MD #### AF5MUT, AMTHFR #### [facility] [address] [place] [address] Meat Dresser: Thang Hull MD #### AAFPM #### [address] [address] Meat Dresser: Nile Cesar MD [facility] [address] [place] [address] Meat Dresser: Thang Hull MD Ins Req Matern Diab No [facility] Comment on above: Performed By: #### P ROSAC, LUPPRO, HOCYS, PROCAC, AT3A #### [facility] [address] [place] [address] Meat Dresser: Nile Cesar MD #### AF5MUT, AMTHFR #### [facility] [address] [place], [place] [id number] Meat Dresser: Thang Hull MD #### AAFPM #### [address] [address] Meat Dresser: Nile Cesar MD [address] [phone] Meat Dresser: Thang Hull MD Interpretation Screen Neg Normal [facility] Comment on above: Result Comment: (NOT E) INTERPRETATION: SCREEN NEGATIVE for open spina bifida Neural Tube Defects (NTD) Negative Pre-Test Post-Test Cutoff Neural Tube Defects Risks 1:1030 1:509 1:250 Comments: The risk of an open neural tube defect is less than the screening cut-off. This test was developed and its performance characteristics determined by [facility]. It has not been cleared or approved by the [place] Food and Drug Administration. This test was performed in a CLIA certified laboratory and is intended for clinical purposes. Performed By: #### Curt ROSAC, LUPPRO, HOCYS, PROCAC, AT3A #### [facility] [address] [address] Meat Dresser: Nile Cesar MD #### AF5MUT, AMTHFR #### [address] [phone] Meat Dresser: Thang Hull MD #### AAFPM #### [address] [address] Meat Dresser: Nile Cesar MD [address] [phone] Meat Dresser: Thang Hull MD [age] Normal [facility] Comment on above: Performed By: #### P ROSAC, LUPPRO, HOCYS, PROCAC, AT3A #### [facility] [address] [place] [address] Meat Dresser: Nile Cesar MD #### AF5MUT, AMTHFR #### [facility] [address] [place] [address] Meat Dresser: Thang Hull MD #### AAFPM #### [facility] [address] [place] [address] Meat Dresser: Nile Cesar MD [facility] [address] [place] [address] Meat Dresser: Thang Hull MD Maternal Race Nonblack [facility] Comment on above: Performed By: #### P ROSAC, LUPPRO, HOCYS, PROCAC, AT3A #### [facility] [address] [place] [address] Meat Dresser: Nile Cesar MD #### AF5MUT, AMTHFR #### [facility] [address] [place] [address] Meat Dresser: Thang Hull MD #### AAFPM #### [facility] [address] [place] [address] Meat Dresser: Nile Cesar MD [facility] [address] [place] [address] Meat Dresser: Thang Hull MD Maternal Weight 285.0 lbs. [facility] Comment on above: Performed By: #### P ROSAC, LUPPRO, HOCYS, PROCAC, AT3A #### [facility] [address] [place] [address] Meat Dresser: Nile Cesar MD #### AF5MUT, AMTHFR #### [facility] [address] [place] [address] Meat Dresser: Thang Hull MD #### AAFPM #### [facility] [address] [place] [address] Meat Dresser: Nile Cesar MD [facility] [address] [place] [address] Meat Dresser: Thang Hull MD MoM for AFP 2.18 Normal [facility] Comment on above: Performed By: #### P ROSAC, LUPPRO, HOCYS, PROCAC, AT3A #### [facility] [address] [place] [address] Meat Dresser: Nile Cesar MD #### AF5MUT, AMTHFR #### [facility] [address] [place] [address] Meat Dresser: Thang Hull MD #### AAFPM #### [facility] [address] [place] [address] Meat Dresser: Nile Cesar MD [facility] [address] [place], [place] [phone] Meat Dresser: Thang Hull MD Number of Fetuses [place] Normal [facility] Comment on above: Performed By: #### P ROSAC, LUPPRO, HOCYS, PROCAC, AT3A #### [facility] [address] [place] [address] Meat Dresser: Nile Cesar MD #### AF5MUT, AMTHFR #### [facility] [address] [place], [place] [phone] Meat Dresser: Thang Hull MD #### AAFPM #### [address] [address] Meat Dresser: Nile Cesar MD [facility] [address] [place] [address] Meat Dresser: Thang Hull MD Patient's AFP 70 ng/mL Normal [facility] Comment on above: Performed By: #### P ROSAC, LUPPRO, HOCYS, PROCAC, AT3A #### [facility] [address] [place] [address] Meat Dresser: Nile Cesar MD #### AF5MUT, AMTHFR #### [facility] [address] [place] [address] Meat Dresser: Thang Hull MD #### AAFPM #### [facility] [address] [place] [address] Meat Dresser: Nile Cesar MD [facility] [address] [place] [address] Meat Dresser: Thang Hull MD Smoking Unknown [facility] Comment on above: Performed By: #### P ROSAC, LUPPRO, HOCYS, PROCAC, AT3A #### [facility] [address] [place] [address] Meat Dresser: Nile Cesar MD #### AF5MUT, AMTHFR #### [facility] [address] [place] [address] Meat Dresser: Thang Hull MD #### AAFPM #### [address] [address] Meat Dresser: Nile Cesar MD [address] [address] Meat Dresser: Thang Hull MD Specimen See Note [facility] Comment on above: Result Comment: (NOT E) Initial sample Performed by [facility], [address] [place] [id number] [email or web address], Mike Stratton MD, PHD, Lab. Director Performed By: #### P ROSAC, LUPPRO, HOCYS, PROCAC, AT3A #### [facility] [address] [place] [address] Meat Dresser: Nile Cesar MD #### AF5MUT, AMTHFR #### [facility] [address] [place] [id number] Meat Dresser: Thang Hull MD #### AAFPM #### [facility] [address] [place] [address] Meat Dresser: Nile Cesar MD [facility] [address] [place] [address] Meat Dresser: Thang Hull MD MTHFR Gene Mutationon 2022 MTHFR 1286 A>C Mut Heterozygous Normal [facility] Comment on above: Performed By: #### P ROSAC, LUPPRO, HOCYS, PROCAC, AT3A #### [facility] [address] [place] [address] Meat Dresser: Nile Cesar MD #### AF5MUT, AMTHFR #### [facility] [address] [place] [address] Meat Dresser: Thang Hull MD #### AAFPM #### [address] [address] Meat Dresser: Nile Cesar MD [address] [address] Meat Dresser: Thang Hull MD MTHFR 655C>T Mut Heterozygous Normal [facility] Comment on above: Performed By: #### P ROSAC, LUPPRO, HOCYS, PROCAC, AT3A #### [address] [address] Meat Dresser: Nile Cesar MD #### AF5MUT, AMTHFR #### [facility] [address] [place] [address] Meat Dresser: Thang Hull MD #### AAFPM #### [address] [address] Meat Dresser: Nile Cesar MD [facility] [address] [place] [address] Meat Dresser: Thang Hull MD MTHFR Interpretation See Note Normal [facility] Comment on above: Result Comment: (NOT E) Indication for testing: Determine genetic contribution to hyperhomocysteinemia. Compound Heterozygous MTHFR c.665C>T/c.1286A>C: One copy of each of the two MTHFR gene variants tested, c.665C>T (previously designated C677T) and c.1286A>C (previously designated [id number]) were detected. This genotype may be associated [...] has an effect on cardiovascular disease. The [employer] Practice Guidelines indicate [...] a contributing factor to hyperhomocysteinemia. Variants Tested: c.665C>T(p.Hso566Riw) and c.1286A>C(p.Gyr270Tad). (legacy names C677T and K3657H, respectively). Clinical Sensitivity: Undefined; hyperhomocysteinemia is caused [...] developed and its performance characteristics determined by [facility]. It has not been cleared or approved by the [place] Food and Drug Administration. This test was performed in a CLIA certified laboratory and is intended for clinical purposes. Counseling and informed consent are recommended for genetic testing. Consent forms are available online. Performed by [facility], [address] [place] [address],[place] [id number] [email or web address], Mike Stratton MD, PHD, Lab. Director Performed By: #### P ROSAC, LUPPRO, HOCYS, PROCAC, AT3A #### [address] [address] Meat Dresser: Nile Cesar MD #### AF5MUT, AMTHFR #### [facility] [address] [place] [address] Meat Dresser: Thang Hull MD #### AAFPM #### [address] [address] Meat Dresser: Nile Cesar MD [address] [phone] Meat Dresser: Thang Hull MD MTHFR SPECIMEN Whole Blood Normal [facility] Comment on above: Performed By: #### P ROSAC, LUPPRO, HOCYS, PROCAC, AT3A #### [address] [address] Meat Dresser: Nile Cesar MD #### AF5MUT, AMTHFR #### [facility] [address], [place] [id number] Meat Dresser: Thang Hull MD #### AAFPM #### [address] [address] Meat Dresser: Nile Cesar MD [facility] [address], [place] [id number] Meat Dresser: Thang Hull MD Lupus Anticoagulanton 2022 Anticardiolipin IgG 0.9 GPL Normal 0.0-10.0 [facility] Comment on above: Result Comment: Reference Range: <10.0 Negative 10.0-40.0 Equivocal >40.0 Positive Performed By: #### P ROSAC, LUPPRO, HOCYS, PROCAC, AT3A #### [address] [place] [address] Meat Dresser: Nile Cesar MD #### AF5MUT, AMTHFR #### [address] [id number] Meat Dresser: Thang Hull MD #### AAFPM #### [address] [address] Meat Dresser: Nile Cesar MD [address] [id number] Meat Dresser: Thang Hull MD Anticardiolipin IgA 1.4 APL Normal 0.0-14.0 [facility] Comment on above: Result Comment: Reference Range: <14.0 Negative 14.0-20.0 Equivocal >20.0 Positive When results are Equivocal, it is recommended to retest after 4-6 weeks. Performed By: #### P ROSAC, LUPPRO, HOCYS, PROCAC, AT3A #### [address] [address] Meat Dresser: Nile Cesar MD #### AF5SHILA, AMTHFR #### [address] [phone] Meat Dresser: Thang Hull MD #### AAFPM #### [address] [address] Meat Dresser: Nile Cesar MD [address] [phone] Meat Dresser: Thang Hull MD Anticardiolipin IgM 3.6 MPL Normal 0.0-10.0 [facility] Comment on above: Result Comment: Reference Range: <10.0 Negative 10.0-40.0 Equivocal >40.0 Positive Performed By: #### P ROSAC, LUPPRO, HOCYS, PROCAC, AT3A #### [address] [address] Meat Dresser: Nile Cesar MD #### AF5MUT, AMTHFR #### [facility] [address] [place] [address] Meat Dresser: Thang Hull MD #### AAFPM #### [facility] [address] [place] [address] Meat Dresser: Nile Cesar MD [facility] [address] [place] [address] Meat Dresser: Thang Hull MD [facility] Current Smoking INFORMATION NOT PROVIDED [facility] Comment on above: Performed By: #### P ROSAC, LUPPRO, HOCYS, PROCAC, AT3A #### [facility] [address] [place] [address] Meat Dresser: Nile Cesar MD #### AF5MUT, AMTHFR #### [facility] [address] [place] [address] Meat Dresser: Thang Hull MD #### AAFPM #### [address] [address] Meat Dresser: Nile Cesar MD [address] [address] Meat Dresser: Thang Hull MD [facility] Comment on above: Performed By: #### P ROSAC, LUPPRO, HOCYS, PROCAC, AT3A #### [facility] [address] [place] [address] Meat Dresser: Nile Cesar MD #### AF5MUT, AMTHFR #### [facility] [address] [place] [address] Meat Dresser: Thang Hull MD #### AAFPM #### [address] [address] Meat Dresser: Nile Cesar MD [facility] [address] [place] [address] Meat Dresser: Thang Hull MD Diabetic NO [facility] Comment on above: Performed By: #### P ROSAC, LUPPRO, HOCYS, PROCAC, AT3A #### [facility] [address] [place] [address] Meat Dresser: Nile Cesar MD #### AF5MUT, AMTHFR #### [facility] [address] [place] [address] Meat Dresser: Thang Hull MD #### AAFPM #### [address] [address] Meat Dresser: Nile Cesar MD [facility] [address] [place] [address] Meat Dresser: Thang Hull MD Donor Egg INFORMATION NOT PROVIDED [facility] Comment on above: Performed By: #### P ROSAC, LUPPRO, HOCYS, PROCAC, AT3A #### [facility] [address] [place] [address] Meat Dresser: Nile Cesar MD #### AF5MUT, AMTHFR #### [facility] [address] [place] [address] Meat Dresser: Thang Hull MD #### AAFPM #### [facility] [address] [place] [address] Meat Dresser: Nile Cesar MD [facility] [address] [place] [address] Meat Dresser: Thang Hull MD Estimated Due Date 03/24/2023 [facility] Comment on above: Performed By: #### P ROSAC, LUPPRO, HOCYS, PROCAC, AT3A #### [facility] [address] [place] [address] Meat Dresser: Nile Cesar MD #### AF5MUT, AMTHFR #### [facility] [address] [place] [address] Meat Dresser: Thang Hull MD #### AAFPM #### [facility] [address] [place] [address] Meat Dresser: Nile Cesar MD [facility] [address] [place] [address] Meat Dresser: Thang Hull MD Family History NO Normal [facility] Comment on above: Performed By: #### P ROSAC, LUPPRO, HOCYS, PROCAC, AT3A #### [facility] [address] [place] [address] Meat Dresser: Nile Cesar MD #### AF5MUT, AMTHFR #### [facility] [address] [place] [address] Meat Dresser: Thang Hull MD #### AAFPM #### [facility] [address] [place] [address] Meat Dresser: Nile Cesar MD [facility] [address] [place] [address] Meat Dresser: Thang Hull MD In Vitro Fertalizat INFORMATION NOT PROVIDED Normal [facility] Comment on above: Performed By: #### P ROSAC, LUPPRO, HOCYS, PROCAC, AT3A #### [facility] [address] [place] [address] Meat Dresser: Nile Cesar MD #### AF5MUT, AMTHFR #### [facility] [address] [place] [address] Meat Dresser: Thang Hull MD #### AAFPM #### [facility] [address] [place] [address] Meat Dresser: Nile Cesar MD [facility] [address] [place] [address] Meat Dresser: Thang Hull MD Maternal date 1990 [facility] Comment on above: Performed By: #### P ROSAC, LUPPRO, HOCYS, PROCAC, AT3A #### [facility] [address] [place] [address] Meat Dresser: Nile Cesar MD #### AF5MUT, AMTHFR #### [facility] [address] [place] [address] Meat Dresser: Thagn Hull MD #### AAFPM #### [address] [address] Meat Dresser: Nile Cesar MD [facility] [address] [place] [address] Meat Dresser: Thang Hull MD Maternal Weight 285 Normal [facility] Comment on above: Performed By: #### P ROSAC, LUPPRO, HOCYS, PROCAC, AT3A #### [address] [address] Meat Dresser: Nile Cesar MD #### AF5MUT, AMTHFR #### [facility] [address] [place] [address] Meat Dresser: Thang Hull MD #### AAFPM #### [address] [address] Meat Dresser: Nile Cesar MD [facility] [address] [place] [address] Meat Dresser: Thang Hull MD Monochorionic Twins INFORMATION NOT PROVIDED [facility] Comment on above: Performed By: #### P ROSAC, LUPPRO, HOCYS, PROCAC, AT3A #### [facility] [address] [place] [address] Meat Dresser: Nile Cesar MD #### AF5MUT, AMTHFR #### [facility] [address] [place] [address] Meat Dresser: Thang Hull MD #### AAFPM #### [facility] [address] [place] [address] Meat Dresser: Nile Cesar MD [facility] [address] [place] [address] Meat Dresser: Thang Hull MD Patient Weight Units LBS [facility] Comment on above: Performed By: #### P ROSAC, LUPPRO, HOCYS, PROCAC, AT3A #### [facility] [address] [place] [address] Meat Dresser: Nile Cesar MD #### AF5MUT, AMTHFR #### [facility] [address] [place] [address] Meat Dresser: Thang Hull MD #### AAFPM #### [facility] [address] [place] [address] Meat Dresser: Nile Cesar MD [facility] [address] [place] [address] Meat Dresser: Thang Hull MD Race (Maternal) WHITE [facility] Comment on above: Performed By: #### P ROSAC, LUPPRO, HOCYS, PROCAC, AT3A #### [facility] [address] [place] [address] Meat Dresser: Nile Cesar MD #### AF5MUT, AMTHFR #### [facility] [address] [place] [address] Meat Dresser: Thang Hull MD #### AAFPM #### [facility] [address] [place] [address] Meat Dresser: Nile Cesar MD [facility] [address] [place] [address] Meat Dresser: Thang Hull MD Repeat Specimen NO Normal [facility] Comment on above: Performed By: #### P ROSAC, LUPPRO, HOCYS, PROCAC, AT3A #### [facility] [address] [place] [address] Meat Dresser: Nile Cesar MD #### AF5MUT, AMTHFR #### [facility] [address] [place] [address] Meat Dresser: Thang Hull MD #### AAFPM #### [facility] [address] [place] [address] Meat Dresser: Nile Cesar MD [facility] [address] [place] [address] Meat Dresser: Thang Hull MD Valproic/Carbamaze p INFORMATION NOT PROVIDED Normal [facility] Comment on above: Performed By: #### P ROSAC, LUPPRO, HOCYS, PROCAC, AT3A #### [facility] [address] [place] [address] Meat Dresser: Nile Cesar MD #### AF5MUT, AMTHFR #### [facility] [address] [place] [address] Meat Dresser: Thang Hull MD #### AAFPM #### [facility] [address] [place] [address] Meat Dresser: Nile Cesar MD [facility] [address] [place] [address] Meat Dresser: Thang Hull MD Homocysteineon 10-26-2022 Homocysteine 6.7 umol/L Normal <15.0 [facility] Comment on above: Performed By: #### P ROSAC, LUPPRO, HOCYS, PROCAC, AT3A #### [facility] [address] [place] [address] Meat Dresser: Nile Cesar MD #### AF5MUT, AMTHFR #### [facility] [address] [place], [place] [id number] Meat Dresser: Thang Hull MD #### AAFPM #### [address] [address] Meat Dresser: Nile Cesar MD [facility] [address] [place], [place] [id number] Meat Dresser: Thang Hull MD Homocysteine 6.7 umol/L NINF - 15.0 umol/L [facility] Lupus Anticoagulanton 2022 aPTT Coag (Bld) [Time] 25.8 s Normal 23.0-36.5 [facility] Comment on above: Performed By: #### P ROSAC, LUPPRO, HOCYS, PROCAC, AT3A #### [address] [address] Meat Dresser: Nile Cesar MD #### AF5MUT, AMTHFR #### [facility] [address] [place] [address] Meat Dresser: Thang Hull MD #### AAFPM #### [address] [address] Meat Dresser: Nile Cesar MD [address] [phone] Meat Dresser: Thang Hull MD INR Coag (PPP) [Relative time] 0.9 {INR} Normal [facility] Comment on above: Result Comment: Therapeutic Range: Moderate Anticoagulant Intensity: INR = 2.0-3.0 High Anticoagulant Intensity: INR = 2.5-3.5 Performed By: #### P ROSAC, LUPPRO, HOCYS, PROCAC, AT3A #### [address] [address] Meat Dresser: Nile Cesar MD #### AF5MUT, AMTHFR #### [facility] [address] [place] [address] Meat Dresser: Thang Hull MD #### AAFPM #### [address] [address] Meat Dresser: Nile Cesar MD [facility] [address] [place] [address] Meat Dresser: Thang Hull MD PT Coag (PPP) [Time] 11.7 s Normal 11.7-14.9 [facility] Comment on above: Performed By: #### P ROSAC, LUPPRO, HOCYS, PROCAC, AT3A #### [address] [address] Meat Dresser: Nile Cesar MD #### AF5MUT, AMTHFR #### [facility] [address] [place] [address] Meat Dresser: Thang Hull MD #### AAFPM #### [address] [address] Meat Dresser: Nile Cesar MD [facility] [address] [place] [address] Meat Dresser: MD Romel Briones 10-26-2022 Romel Kit Forwarded to [facility] Comment on above: Performed By: #### N ATER #### [address] [address] Meat Dresser: Nile Cesar MD Romel [facility] Comment on above: Performed By: #### N ATER #### [address] [address] Meat Dresser: Nile Cesar MD AFP MATERNAL FOR SPINA BIFID Aon 10-08-2022 AFP MoM 1.69 Normal [facility] Comment on above: Performed By: #### C BC #### [facility] [address] [address] [address] Brenna Mann AFP Value 39.4 ng/mL Normal [facility] Comment on above: Performed By: #### C BC #### [facility] [address] [address] [address] Brenna Mann AFP, Serum for Spina Bifida Report Normal [facility] Comment on above: Performed By: #### C BC #### [facility] [address] [address] [address] Brenna Mann Comment Comment Normal [facility] Comment on above: Result Comment: Jesús Goodman, Ph.D., [facility] Director . References: Available Upon Request. . Multiples Of Median Cutoffs For AFP Elevations [place] 2.5 Black 2.8 IDD 2.0 Twins 4.5 Abbreviation Definitions IDD - Insulin Dep Diabetes OSBR - Open Spina Bifida Risk . For further inquiries contact [facility] at [phone]. . This test was developed and its performance characteristics determined by [facility]. It has not been cleared or approved by the Food and Drug Administration. Performed By: #### C BC #### [facility] [address] [place] [address] Dr. Brenna Ji Age Collection Date 15.7 weeks Normal [facility] Comment on above: Performed By: #### C BC #### [facility] [address] [place] [address] Dr. Brenna Mann Gestat, Age Based on As provided Normal [facility] Comment on above: Result Comment: Reca lculations are not recommended when gestational dating by LMP and ultrasound are within 10 days. Performed By: #### C BC #### [facility] [address] [place] [address] Dr. Brenna Mann Insulin Dep Diabetes No Normal [facility] Comment on above: Performed By: #### C BC #### [facility] [address] [place] [address] Dr. Brenna Mann Interpretation Comment Normal [facility] Comment on above: Result Comment: Inte rpretation: [...] Customer Services to discuss available options. The [employer] recommends amniocentesis be offered to women age 35 and older. Performed By: #### C BC #### [facility] [address] [place] [address] Dr. Brenna Mann [age] Normal [facility] Comment on above: Performed By: #### C BC #### [facility] [address] [place] [address] Dr. Brenna Mann Multiple Gestation No Normal [facility] Comment on above: Performed By: #### C BC #### [facility] [address] [place] [address] Dr. Brenna Mann OSBR Risk 1 IN 1671 Normal [facility] Comment on above: Performed By: #### C BC #### [facility] [address] [place] [address] Dr. Brenna Mann PDF . Normal [facility] Comment on above: Performed By: #### C BC #### [facility] [address] [place] [address] Dr. Brenna Mann Race Normal [facility] Comment on above: Performed By: #### C BC #### [facility] [address] [place] [address] Dr. Brenna Mann Test Results: Negative Normal [facility] Comment on above: Performed By: #### C BC #### [facility] [address] [place] [address] Dr. Brenna Mann US PREG LIMITEDon 10-06-2022 [...] LINO ARROYO Date: 2022-10-06 15:09 Normal [facility] US PREG TVon 09-14-2022 US PREG [...] JR RITCHIE Date: 2022-09-14 17:18 Normal [facility] HEP B SURFACE ANTIGEN SCREEN on 09-11-2022 HBsAg Screen Negative Normal Negative [facility] Comment on above: Performed By: #### H BSANS #### [facility] [address] [place] [address] Dr. Brenna Mann HEPATITIS C VIRUS AB W/ REFL EX QUANTon 09-11-2022 HCV AB Non-Reactive Normal Non Reactive [facility] Comment on above: Performed By: #### [id number] #### [facility] [address] [place] [address] Dr. Brenna Mann Interpretation: Comment Normal [facility] Comment on above: Result Comment: Not infected with HCV unless early or acute infection is suspected (which may be delayed in an immunocompromised individual), or other evidence exists to indicate HCV infection. Performed By: #### [id number] #### [facility] [address] [place] [address] Dr. Brenna Mann HIV 1 AND 2 WITH REFLEXon HIV Screen 4th Generation wRfx Non-Reactive Normal Non Reactive [facility] Comment on above: Result Comment: HIV Negative HIV-1/HIV-2 antibodies and HIV-1 p24 antigen were NOT detected. There is no laboratory evidence of HIV infection. Performed By: #### H IV12 #### [facility] [address] [place] [address] Dr. Brenna Mann RPR QUANTon 09-11-2022 Rapid Plasma Reagin, Quant Non-Reactive Normal NonRea<1:1 [facility] Comment on above: Result Comment: Plea se Note: This test does not meet current guidelines for screening and diagnosis of syphilis. This test is intended for following treatment response in patients being treated for syphilis infection. To screen for syphilis infection, a reflex cascade that includes both RPR and a treponema-specific assay should be utilized, such as Treponema pallidum (Syphilis) Screening [place] (973646) or Rapid Plasma Reagin (RPR) Test With Reflex to Quantitative RPR and Confirmatory Treponema pallidum Antibodies (997000). Performed By: #### [id number] #### [facility] [address] [place] [address] Dr. Brenna Mann RUBELLA AB IGGon 09-11-2022 Rubella Antibodies, IgG 2.41 index Normal Immune >0.99 [facility] Comment on above: Result Comment: Non- immune <0.90 Equivocal 0.90 - 0.99 Immune >0.99 Performed By: #### C BC #### [facility] [address] [place] [address] Dr. Brenna Mann CBC AUTO DIFFon 09-10-2022 BASO # 0.0 103/ul Normal 0.0-0.1 [facility] Comment on above: Performed By: #### C BC #### [facility] [address] [place] [address] Dr. Brenna Mann Basophils/100 WBC (Bld) 0.3 % Normal 0.2-2.0 [facility] Comment on above: Performed By: #### C BC #### [facility] [address] [place] [address] Dr. Brenna Mann EO # 0.3 103/ul Normal 0.0-0.7 [facility] Comment on above: Performed By: #### C BC #### [facility] [address] [place] [address] Dr. Brenna Mann Eosinophils/100 WBC (Bld) 2.7 % Normal 0.9-7.0 [facility] Comment on above: Performed By: #### C BC #### [facility] [address] [place] [address] Dr. Brenna Mann Erythrocyte distribution width (RBC) [Ratio] 13.8 % Normal 11.0-15.0 [facility] Comment on above: Performed By: #### C BC #### [facility] [address] [place] [address] Dr. Brenna Mann Hematocrit (Bld) [Volume fraction] 37.4 % Normal 36.0-48.0 [facility] Comment on above: Performed By: #### C BC #### [facility] [address] [place] [address] Dr. Brenna Mann Hemoglobin (Bld) [Mass/Vol] 12.2 g/dL Normal 12.0-16.0 [facility] Comment on above: Performed By: #### C BC #### [facility] [address] [place] [address] Dr. Brenna Mann IG # 0.10 10e3/ul Critically high 0.00-0.03 [facility] Comment on above: Performed By: #### C BC #### [facility] [address] [place] [address] Dr. Brenna Mann IG % 1.1 % Critically high 0.0-0.5 [facility] Comment on above: Performed By: #### C BC #### [facility] [address] [place] [address] Dr. Brenna Mann LYMPH # 2.4 103/ul Normal 1.2-3.8 [facility] Comment on above: Performed By: #### C BC #### [facility] [address] [place] [address] Dr. Brenna Mann Lymphocytes/100 WBC (Bld) 25.3 % Normal 20.5-60.0 [facility] Comment on above: Performed By: #### C BC #### [facility] [address] [place] [address] Dr. Brenna Mann MANUAL DIFF REQ NO Normal [facility] Comment on above: Performed By: #### C BC #### [facility] [address] [place] [address] Dr. Brenna Mann MCH (RBC) [Entitic mass] 27.8 pg Normal 26.7-34.0 [facility] Comment on above: Performed By: #### C BC #### [facility] [address] [place] [address] Dr. Brenna Mann MCHC (RBC) [Mass/Vol] 32.6 g/dL Normal 29.9-35.2 [facility] Comment on above: Performed By: #### C BC #### [facility] [address] [place] [address] Dr. Brenna Mann MCV (RBC) [Entitic vol] 85.2 fL Normal 81.0-99.0 [facility] Comment on above: Performed By: #### C BC #### [facility] [address] [place] [address] Dr. Brenna Mann MONO # 0.4 103/ul Normal 0.3-0.8 [facility] Comment on above: Performed By: #### C BC #### [facility] [address] [place] [address] Dr. Brenna Mann Monocytes/100 WBC (Bld) 3.7 % Normal 1.7-12.0 [facility] Comment on above: Performed By: #### C BC #### [facility] [address] [place] [address] Dr. Brenna Mann NEUT # 6.3 103/ul Normal 1.4-6.5 [facility] Comment on above: Performed By: #### C BC #### [facility] [address] [place] [address] Dr. Brenna Mann Neutrophils/100 WBC (Bld) 66.9 % Normal 43.0-75.0 [facility] Comment on above: Performed By: #### C BC #### [facility] [address] [address] [address] Brenna Mann Platelet mean volume (Bld) [Entitic vol] 12.1 fL Normal 9.5-13.5 [facility] Comment on above: Performed By: #### C BC #### [facility] [address] [place] [address] Dr. Brenna Mann PLT 172 103/ul Normal 150-450 [facility] Comment on above: Performed By: #### C BC #### [facility] [address] [address] [address] Brenna Mann RBC 4.39 106/ul Normal 4.20-5.40 [facility] Comment on above: Performed By: #### C BC #### [facility] [address] [place] [address] Dr. Brenna Mann WBC 9.3 103/ul Normal 4.0-11.0 [facility] Comment on above: Performed By: #### C BC #### [facility] [address] [place] [address] Dr. Brenna Mann CULTURE URINEon 09-10-2022 CULTURE URINE Culture Observations : NO GROWTH. Normal [facility] Comment on above: Performed By: #### C BC #### [facility] [address] [place] [address] Dr. Brenna Mann GLYCOHEMOGLOBIN A1Con 2022 ADA RECOMMENDATION SEE BELOW Normal [facility] Comment on above: Result Comment: ADA RECOMMENDED LIMIT 4.0 - 6.0 ADA THERAPEUTIC TARGET < 7.0 ACTION SUGGESTED > 7.0 Performed By: #### 4 [id number] #### [facility] [address] [place] [address] Dr. Brenna Mann Glucose [Mass/Vol] 100 mg/dL Normal [facility] Comment on above: Performed By: #### 4 [id number] #### [facility] [address] [place] [address] Dr. Brenna Mann HbA1c (Bld) [Mass fraction] 5.1 % Normal 4.5-6.2 [facility] Comment on above: Performed By: #### 4 [id number] #### [facility] [address] [place] [address] Dr. Brenna Mann ROMEL BOX TEST PT SEND OUTo n 09-10-2022 SENT TO REF LAB 09/10/2022 Normal [facility] Comment on above: Performed By: #### 4 [id number] #### [facility] [address] [place] [address] Dr. Brenna Mann TSHon 09-10-2022 TSH 0.568 uIU/mL Normal 0.358-3.740 [facility] Comment on above: Performed By: #### T SH #### [facility] [address] [place] [address] Dr. Brenna Mann TYPE AND SCREENon 09-10-2022 TYPE AND SCREEN Negative Normal [facility] Comment on above: Performed By: #### C BC #### [facility] [address] [place] [address] Dr. Brenna Mann US PREG TVon 08-29-2022 [...] JR RITCHIE Date: 2022-08-29 16:12 Normal [facility] CBC AUTO DIFFon 08-21-2022 BASO # 0.0 103/ul Normal 0.0-0.1 [facility] Comment on above: Performed By: #### 4 [id number] #### [facility] [address] [place] [address] Dr. Brenna Mann Basophils/100 WBC (Bld) 0.3 % Normal 0.2-2.0 [facility] Comment on above: Performed By: #### 4 [id number] #### [facility] [address] [place] [address] Dr. Brenna Mann EO # 0.1 103/ul Normal 0.0-0.7 [facility] Comment on above: Performed By: #### 4 [id number] #### [facility] [address] [place] [address] Dr. Brenna Mann Eosinophils/100 WBC (Bld) 1.2 % Normal 0.9-7.0 [facility] Comment on above: Performed By: #### 4 [id number] #### [facility] [address] [place] [address] Dr. Brenna Mann Erythrocyte distribution width (RBC) [Ratio] 14.3 % Normal 11.0-15.0 [facility] Comment on above: Performed By: #### 4 [id number] #### [facility] [address] [place] [address] Dr. Brenna Mann Hematocrit (Bld) [Volume fraction] 40.4 % Normal 36.0-48.0 [facility] Comment on above: Performed By: #### 4 [id number] #### [facility] [address] [place] [address] Dr. Brenna Mann Hemoglobin (Bld) [Mass/Vol] 12.9 g/dL Normal 12.0-16.0 [facility] Comment on above: Performed By: #### 4 [id number] #### [facility] [address] [place] [address] Dr. Brenna Mann IG # 0.08 10e3/ul Critically high 0.00-0.03 [facility] Comment on above: Performed By: #### 4 [id number] #### [facility] [address] [place] [address] Dr. Brenna Mann IG % 0.8 % Critically high 0.0-0.5 [facility] Comment on above: Performed By: #### 4 [id number] #### [facility] [address] [place] [address] Dr. Brenna Mann LYMPH # 2.8 103/ul Normal 1.2-3.8 [facility] Comment on above: Performed By: #### 4 [id number] #### [facility] [address] [place] [address] Dr. Brenna Mann Lymphocytes/100 WBC (Bld) 28.8 % Normal 20.5-60.0 [facility] Comment on above: Performed By: #### 4 [id number] #### [facility] [address] [place] [address] Dr. Brenna Mann MANUAL DIFF REQ NO Normal [facility] Comment on above: Performed By: #### 4 [id number] #### [facility] [address] [place] [address] Dr. Brenna Mann MCH (RBC) [Entitic mass] 28.4 pg Normal 26.7-34.0 [facility] Comment on above: Performed By: #### 4 [id number] #### [facility] [address] [place] [address] Dr. Brenna Mann MCHC (RBC) [Mass/Vol] 31.9 g/dL Normal 29.9-35.2 [facility] Comment on above: Performed By: #### 4 [id number] #### [facility] [address] [place] [address] Dr. Brenna Mann MCV (RBC) [Entitic vol] 88.8 fL Normal 81.0-99.0 [facility] Comment on above: Performed By: #### 4 [id number] #### [facility] [address] [place] [address] Dr. Brenna Mann MONO # 0.7 103/ul Normal 0.3-0.8 [facility] Comment on above: Performed By: #### 4 [id number] #### [facility] [address] [place] [address] Dr. Brenna Mann Monocytes/100 WBC (Bld) 6.9 % Normal 1.7-12.0 [facility] Comment on above: Performed By: #### 4 [id number] #### [facility] [address] [place] [address] Dr. Brenna Mann NEUT # 6.1 103/ul Normal 1.4-6.5 [facility] Comment on above: Performed By: #### 4 [id number] #### [facility] [address] [place] [address] Dr. Brenna Mann Neutrophils/100 WBC (Bld) 62.0 % Normal 43.0-75.0 [facility] Comment on above: Performed By: #### 4 [id number] #### [facility] [address] [place] [address] Dr. Brenna Mann Platelet mean volume (Bld) [Entitic vol] 12.0 fL Normal 9.5-13.5 [facility] Comment on above: Performed By: #### 4 [id number] #### [facility] [address] [place] [address] Dr. Brenna Mann PLT 191 103/ul Normal 150-450 [facility] Comment on above: Performed By: #### 4 [id number] #### [facility] [address] [place] [address] Dr. Brenna Mann RBC 4.55 106/ul Normal 4.20-5.40 [facility] Comment on above: Performed By: #### 4 [id number] #### [facility] [address] [place] [address] Dr. Brenna Mann WBC 9.8 103/ul Normal 4.0-11.0 [facility] Comment on above: Performed By: #### 4 [id number] #### [facility] [address] [place] [address] Dr. Brenna Mann PREG QUANT HCGon 08-21-2022 HCG QUANT 10695 mIU/mL Normal [facility] Comment on above: Performed By: #### P REGQNT #### [facility] [address] [place] [address] Dr. Brenna Mann HCG RANGE SEE BELOW Normal [facility] Comment on above: Result Comment: 5-50 0.2-1 WEEK 50-500 1-2 WEEKS 100-5,000 2-3 WEEKS 500-10,000 3-4 WEEKS 1,000-50,000 4-5 WEEKS 10,000-100,000 5-6 WEEKS 15,000-200,000 6-8 WEEKS 10,000-100,000 2-3 MONTHS Performed By: #### P REGQNT #### [facility] [address] [place] [address] Dr. Brenna Mann PROF 14(COMP METB)on 023 Albumin [Mass/Vol] 2.8 g/dL Critically low 3.4-5.0 Th e [facility] Comment on above: Performed By: #### 4 [id number] #### [facility] [address] [place] [address] Dr. Brenna Mann Albumin/Globulin [Mass ratio] 0.6 {ratio} Normal [facility] Comment on above: Performed By: #### 4 [id number] #### [facility] [address] [place] [address] Dr. Brenna Mann ALP [Catalytic activity/Vol] 53 U/L Normal 46-116 [facility] Comment on above: Performed By: #### 4 [id number] #### [facility] [address] [place] [address] Dr. Brenna Mann ALT [Catalytic activity/Vol] 17 U/L Normal 14-59 [facility] Comment on above: Performed By: #### 4 [id number] #### [facility] [address] [address] [address] Brenna Mann Anion gap [Moles/Vol] 14.2 mmol/L Normal [facility] Comment on above: Performed By: #### 4 [id number] #### [facility] [address] [place] [address] Dr. Brenna Mann AST [Catalytic activity/Vol] 21 U/L Normal 15-37 [facility] Comment on above: Performed By: #### 4 [id number] #### [facility] [address] [place] [address] Dr. Brenna Mann Bilirubin [Mass/Vol] 0.1 mg/dL Critically low 0.2-1.0 [facility] Comment on above: Performed By: #### 4 [id number] #### [facility] [address] [address] [address] Brenna Mann Calcium [Mass/Vol] 8.5 mg/dL Normal 8.5-10.1 [facility] Comment on above: Performed By: #### 4 [id number] #### [facility] [address] [address] [address] Brenna Mann Chloride [Moles/Vol] 99 mmol/L Normal 98-107 [facility] Comment on above: Performed By: #### 4 [id number] #### [facility] [address] [address] [address] Brenna Mann CO2 [Moles/Vol] 26.2 mmol/L Normal 21.0-32.0 [facility] Comment on above: Performed By: #### 4 [id number] #### [facility] [address] [place] [address] Dr. Brenna Mann Creatinine [Mass/Vol] 0.38 mg/dL Critically low 0.55-1.02 [facility] Comment on above: Performed By: #### 4 [id number] #### [facility] [address] [place] [address] Dr. Brenna Mann EGFR-AF CHILEAN >60 Normal >=60 [facility] Comment on above: Performed By: #### 4 [id number] #### [facility] [address] [address] [address] Brenna Mann EGFR-NON AF CHILEAN >60 Normal >=60 [facility] Comment on above: Performed By: #### 4 [id number] #### [facility] [address] [address] [address] Brenna Mann Globulin (S) [Mass/Vol] 4.5 g/dL Normal [facility] Comment on above: Performed By: #### 4 [id number] #### [facility] [address] [address] [address] Brenna Mann Glucose [Mass/Vol] 106 mg/dL Normal 74-106 [facility] Comment on above: Performed By: #### 4 [id number] #### [facility] [address] [address] [address] Brenna Mann Potassium [Moles/Vol] 3.4 mmol/L Critically low 3.5-5.1 [facility] Comment on above: Performed By: #### 4 [id number] #### [facility] [address] [address] [address] Brenna Mann Protein [Mass/Vol] 7.3 g/dL Normal 6.4-8.2 [facility] Comment on above: Performed By: #### 4 [id number] #### [facility] [address] [address] [address] Brenna Mann Sodium [Moles/Vol] 136 mmol/L Normal 136-145 [facility] Comment on above: Performed By: #### 4 [id number] #### [facility] [address] [place] [address] Dr. Brenna Mann Urea nitrogen [Mass/Vol] 7.0 mg/dL Normal 7.0-18.0 [facility] Comment on above: Performed By: #### 4 [id number] #### [facility] [address] [address] [address] Brenna Mann Urea nitrogen/Creatinin e [Mass ratio] 18.4 mg/mg Normal [facility] Comment on above: Performed By: #### 4 [id number] #### [facility] [address] [place] [address] Dr. Brenna Mann US PREG TVon 08-11-2022 [...] by: LINO ARROYO Date: 2022-08-11 13:32 Normal [facility] PREG QUANT HCGon 07-18-2022 HCG QUANT 230 mIU/mL Normal [facility] Comment on above: Performed By: #### P REGQNT #### [facility] [address] [place] [address] Dr. Brenna Mann HCG RANGE SEE BELOW Normal [facility] Comment on above: Result Comment: 5-50 0.2-1 WEEK 50-500 1-2 WEEKS 100-5,000 2-3 WEEKS 500-10,000 3-4 WEEKS 1,000-50,000 4-5 WEEKS 10,000-100,000 5-6 WEEKS 15,000-200,000 6-8 WEEKS 10,000-100,000 2-3 MONTHS Performed By: #### P REGQNT #### [facility] [address] [place] [address] Dr. Brenna Mann PREG QUANT HCGon 07-15-2022 HCG QUANT 52 mIU/mL [facility] Comment on above: Performed By: #### P REGQNT #### [facility] [address] [address] [address] Brenna Mann HCG RANGE SEE BELOW [facility] Comment on above: Result Comment: 5-50 0.2-1 WEEK 50-500 1-2 WEEKS 100-5,000 2-3 WEEKS 500-10,000 3-4 WEEKS 1,000-50,000 4-5 WEEKS 10,000-100,000 5-6 WEEKS 15,000-200,000 6-8 WEEKS 10,000-100,000 2-3 MONTHS Performed By: #### P REGQNT #### [facility] [address] [place] [address] Dr. Brenna Mann PAP ACOG PANEL 2: 30 to 65on 07-14-2022 . . Normal [facility] Comment on above: Result Comment: Perf ormed at: WB Performed By: #### 4 [id number] #### [facility] [address] [place] [address] Dr. Brenna Mann Age Gdln ACOG Testing 28- [facility] Comment on above: Performed By: #### 4 [id number] #### [facility] [address] [place] [address] Dr. Brenna Mann DIAGNOSIS: Comment Normal [facility] Comment on above: Result Comment: NEGA TIVE FOR INTRAEPITHELIAL LESION OR MALIGNANCY. Performed at: WB Performed By: #### 4 [id number] #### [facility] [address] [address] [address] Brenna Mann HPV Aptima Negative Normal Negative [facility] Comment on above: Result Comment: This nucleic acid amplification test detects fourteen high-risk HPV types (16,18,31,33,35,39,45,51,52,56,58,59,66,68) without differentiation. Performed at: =G Performed By: #### 4 [id number] #### [facility] [address] [place] [address] Dr. Brenna Mann HPV Genotype Reflex Comment Normal [facility] Comment on above: Result Comment: Crit eria not met, HPV Genotype not performed. Performed at: WB Performed By: #### 4 [id number] #### [facility] [address] [place] [address] Dr. Brenna Mann Methodology: Comment Normal [facility] Comment on above: Result Comment: This liquid based ThinPrep(R) pap test was screened with the use of an image guided system. Performed at: WB Performed By: #### 4 [id number] #### [facility] [address] [place] [address] Dr. Brenna Mann Note: Comment Normal [facility] Comment on above: Result Comment: The Pap smear is a screening test designed to aid in the detection of premalignant and malignant conditions of the uterine cervix. It is not a diagnostic procedure and should not be used as the sole means of detecting cervical cancer. Both false-positive and false-negative reports do occur. . Performed at: WB Performed By: #### 4 [id number] #### [facility] [address] [place] [address] Dr. Brenna Mann Performed by: Comment Normal [facility] Comment on above: Result Comment: Iliana Castillo, Scanning Supervisor (ASCP) Performed at: WB Performed By: #### 4 [id number] #### [facility] [address] [place] [address] Dr. Brenna Mann Specimen adequacy: Comment Normal [facility] Comment on above: Result Comment: Sati sfactory for evaluation. No endocervical component is identified. Performed at: WB Performed By: #### 4 [id number] #### [facility] [address] [place] [address] Dr. Brenna Mann QUANTIFERON TB GOLD PLUSon 0 03-01-2022 QuantiFERON Criteria Comment Normal [facility] Comment on above: Result Comment: Keshav [...] for the test. Performed By: #### 4 [id number] #### [facility] [address] [place] [address] Dr. Brenna Mann QuantiFERON Mitogen Value >10.00 Normal [facility] Comment on above: Performed By: #### 4 [id number] #### [facility] [address] [place] [address] Dr. Brenna Mann QuantiFERON Nil Value 0.02 IU/mL Normal [facility] Comment on above: Performed By: #### 4 [id number] #### [facility] [address] [place] [address] Dr. Brenna Mann QuantiFERON TB1 Ag Value 0.17 IU/mL Normal [facility] Comment on above: Performed By: #### 4 [id number] #### [facility] [address] [place] [address] Dr. Brenna Mann QuantiFERON TB2 Ag Value 0.19 IU/mL Normal [facility] Comment on above: Performed By: #### 4 [id number] #### [facility] [address] [place] [address] Dr. Brenna Mann QuantiFERON Incubation Incubation performed. Normal [facility] Comment on above: Performed By: #### 4 [id number] #### [facility] [address] [place] [address] Dr. Brenna Mann QuantiFERON-TB Gold Plus Negative Normal Negative [facility] Comment on above: Result Comment: No r esponse to M tuberculosis antigens detected. Infection with M tuberculosis is unlikely, but high risk individuals should be considered for additional testing (ATS/IDSA/CDC Clinical Practice Guidelines, 2017). The reference range is an Antigen minus Nil result of <0.35 IU/mL. Chemiluminescence immunoassay methodology Performed By: #### 4 [id number] #### [facility] [address] [place] [address] Dr. Brenna Mann HEPATITIS B SURFACE ANTIBODY , QUANTon 02-27-2022 Hepatitis B Surf AB Quant <3.1 Critically low Immunity>9.9 [facility] Comment on above: Result Comment: Stat us of Immunity Anti-HBs Level Inconsistent with Immunity 0.0 - 9.9 Consistent with Immunity >9.9 Performed By: #### H EPBSRF #### [facility] [address] [place] [address] Dr. Brenna Mann MMR IMMUNITYon 02-27-2022 Mumps Abs, IgG <9.0 Critically low Immune >10.9 [facility] Comment on above: Result Comment: Nega tive <9.0 Equivocal 9.0 - 10.9 Positive >10.9 A positive result generally indicates past exposure to Mumps virus or previous vaccination. Performed By: #### C BC #### [facility] [address] [place] [address] Dr. Brenna Mann Rubella Antibodies, IgG 1.29 index Normal Immune >0.99 [facility] Comment on above: Result Comment: Non- immune <0.90 Equivocal 0.90 - 0.99 Immune >0.99 Performed By: #### C BC #### [facility] [address] [place] [address] Dr. Brenna Mann Rubeola Ab, IgG 75.2 AU/mL Normal Immune >16.4 [facility] Comment on above: Result Comment: Nega tive <13.5 Equivocal 13.5 - 16.4 Positive >16.4 Presence of antibodies to Rubeola is presumptive evidence of immunity except when acute infection is suspected. Performed By: #### C BC #### [facility] [address], [place] [address] Dr. Brenna Mann VARICELLA IGG ABon 2 Varicella Zoster IgG 199 index Normal Immune >165 [facility] Comment on above: Result Comment: Nega tive <135 Equivocal 135 - 165 Positive >165 A positive result generally indicates exposure to the pathogen or administration of specific immunoglobulins, but it is not indication of active infection or stage of disease. Performed By: #### V ARCEL #### [facility] [address], [place] [address] Dr. Brenna Mann Operative Reporton 2 Operative Report MR#: [id number] [facility] Pt. Name: Kavon Chao Room #: 0C Discharge Date: Birthdate: 1990 OPERATIVE REPORT DATE OF SURGERY: 02/22/2022 SURGEON: Antione Walker M.D. CHIEF SECURITY OFFICER: Cuco Castellon M.D. PREOPERATIVE DIAGNOSIS: Retinacular cyst, [...] Walker M.D. Date Trans: 02/22/2022 08:47 A/mmo [id number] Normal [facility] POC GLUCOSE LABon 02-22-2022 Glucose [Mass/Vol] 77 mg/dL Normal 70-100 [facility] Comment on above: Performed By: #### 8 [id number] #### [facility] [address] [facility]. [address] POC SARS COV2 IDon SARS-CoV-2 (COVID-19) RNA AD+probe Ql (Unsp spec) Negative Normal NEGATIVE [facility] Comment on above: Result Comment: ID [...] Accreditation. Performed By: #### 3 [id number] #### [facility] [address] [place] [address], [place] Telephone Encounteron 2020 Director Of Estate Authentication Interface Message Text ??? Outbound call to mom ??? Wanted to follow up make sure rcvd autopsies ??? Left VM to call back Aleyda Marrufo [facility] Telephone Encounteron 2020 Director Of Estate Authentication Interface Message Text ??? Spoke w/[facility] to get follow up on autopsy ??? Currently taking up to 60 days is correct ??? Reached at to mom @:[phone] ??? Spoke w/mom ??? Advised of what was stated that currently undergoing microscope process ??? Verbal understanding ??? Will follow up if she hasn't heard anything soon Aleyda Marrufo [facility] Telephone Encounteron 2020 Director Of Estate Authentication Interface Message Text Outbound call to mom loss 09/14/2020 Concerned still haven't received autoscopy States that it been very difficult Provided additional support services Will follow back with me after 60 days if still no autoscopy Aleyda Marrufo [facility] BASIC METABOLIC PANELon -0 Anion gap [Moles/Vol] 15 mmol/L High 5-13 [facility] Comment on above: Performed By: #### L D, CH8 #### [facility] [address] [place] [address], Calcium [Mass/Vol] 8.2 mg/dL Low 8.4-10.4 [facility] Comment on above: Performed By: #### L Jose, CH8 #### [facility] [address] [place] [address], Chloride [Moles/Vol] 99 mmol/L Normal 97-111 [facility] Comment on above: Performed By: #### L Jose, CH8 #### [facility] [address] [place] [address], CO2 [Moles/Vol] 21 mmol/L Normal 21-30 [facility] Comment on above: Performed By: #### L Jose, CH8 #### [facility] [address] [place] [address], Creatinine [Mass/Vol] 0.49 mg/dL Low 0.50-1.10 [facility] Comment on above: Performed By: #### Louis Garcia, CH8 #### [facility] [address] [place] [address], ESTIMATED GFR (CKD-EPI) 130 mL/min/1.73sqm Normal >=60 [facility] Comment on above: Performed By: ###Eliecer Garcia, AISHA8 #### [facility] [address] [place] [address], Glucose [Mass/Vol] 146 mg/dL High 68-110 [facility] Comment on above: Performed By: ###Eliecer Garcia, AISHA8 #### [facility] [address] [place] [address], Potassium [Moles/Vol] 4.3 mmol/L Normal 3.3-5.3 [facility] Comment on above: Performed By: ###Eliecer Garcia, CH8 #### [facility] [address] [place] [address], Sodium [Moles/Vol] 131 mmol/L Low 135-148 [facility] Comment on above: Performed By: ###Eliecer Garcia, CH8 #### [facility] [address] [place] [address], Urea nitrogen [Mass/Vol] 9 mg/dL Normal 8-22 [facility] Comment on above: Performed By: ###Eliecer Garcia, AISHA8 #### [facility] [address] [place] [address], CBC WITH DIFFERENTIALon 03-0 -2020 Basophils (Bld) [#/Vol] 0.02 10*3/uL Normal 0.00-0.20 [facility] Comment on above: Performed By: #### Blessing VARGAS #### [facility] [address] [place] [address], Basophils/100 WBC (Bld) 0.1 % Normal <=1.9 [facility] Comment on above: Performed By: ###Eliecer VARGAS #### [facility] [address] [place] [address], Eosinophils (Bld) [#/Vol] 0.03 10*3/uL Normal 0.00-0.70 [facility] Comment on above: Performed By: #### R BU #### [facility] [address] [place], [place], Eosinophils/100 WBC (Bld) 0.2 % Normal 0.1-4.0 [facility] Comment on above: Performed By: #### R BU #### [facility] [address] [place] [address], Erythrocyte distribution width (RBC) [Ratio] 15.3 % High 11.5-14.5 [facility] Comment on above: Performed By: #### R BU #### [facility] [address] [place] [address], Hematocrit (Bld) [Volume fraction] 19.7 % Critically low 36.0-46.0 [facility] Comment on above: Performed By: #### R ALICIA #### [facility] [address] [place] [address], Hemoglobin (Bld) [Mass/Vol] 6.6 g/dL Critically low 12.0-15.0 [facility] Comment on above: Performed By: #### R BU #### [facility] [address] [place] [address], Lymphocytes (Bld) [#/Vol] 2.12 10*3/uL Normal 1.00-4.80 [facility] Comment on above: Performed By: #### R BU #### [facility] [address] [place], [place], Lymphocytes/100 WBC (Bld) 14.9 % Low 24.0-44.0 [facility] Comment on above: Performed By: #### R BU #### [facility] [address] [place] [address], MCH (RBC) [Entitic mass] 27.4 pg Normal 26.0-34.0 [facility] Comment on above: Performed By: #### R BU #### [facility] [address] [place] [address], MCHC (RBC) [Mass/Vol] 33.5 g/dL Normal 32.0-35.9 [facility] Comment on above: Performed By: #### R BU #### [facility] [address] [place], [place], MCV (RBC) [Entitic vol] 82 fL Normal 80-100 [facility] Comment on above: Performed By: #### R BU #### [facility] [address] [place], [place], MONOCYTE DISTRIBUTION WIDTH Normal The [facility] Comment on above: Performed By: #### R BU #### [facility] [address] [place], [place], Monocytes (Bld) [#/Vol] 1.34 10*3/uL High 0.20-1.00 [facility] Comment on above: Performed By: #### R BU #### [facility] [address] [place], [place], Monocytes/100 WBC (Bld) 9.4 % Normal 2.0-11.0 [facility] Comment on above: Performed By: #### R BU #### [facility] [address] [place], [place], Neutrophils (Bld) [#/Vol] 10.75 10*3/uL High 1.50-8.00 The [facility] Comment on above: Performed By: #### R BU #### [facility] [address] [place], [place], Neutrophils/100 WBC (Bld) 75.4 % Normal 31.0-76.0 The [facility] Comment on above: Performed By: #### R BU #### [facility] [address] [place], [place], Platelet mean volume (Bld) [Entitic vol] 10.1 fL Normal 7.5-11.2 The [facility] Comment on above: Performed By: #### R BU #### [facility] [address] [place], [place], Platelets (Bld) [#/Vol] 131 10*3/uL Low 150-400 [facility] Comment on above: Performed By: #### R BU #### [facility] [address] [place] [address], RBC (Bld) [#/Vol] 2.41 10*6/uL Low 4.00-5.20 [facility] Comment on above: Performed By: #### R BU #### [facility] [address] [place] [address], WBC (Bld) [#/Vol] 14.3 10*3/uL High 4.5-11.5 [facility] Comment on above: Performed By: #### R BU #### [facility] [address] [place] [address], COMPLETE BLOOD COUNTon 09-15 Erythrocyte distribution width (RBC) [Ratio] 15.5 % High 11.5-14.5 The [facility] Comment on above: Performed By: #### 1 460, [id number] #### [facility] [address] [place] [address] [place], [place] Hematocrit (Bld) [Volume fraction] 23.5 % Low 36.0-46.0 [facility] Comment on above: Performed By: #### 1 460, [id number] #### [facility] [address] [facility] [place], [place] Hemoglobin (Bld) [Mass/Vol] 7.8 g/dL Low 12.0-15.0 The [facility] Comment on above: Performed By: #### 1 460, [id number] #### [facility] [address] [facility] [place], [place] MCH (RBC) [Entitic mass] 28.1 pg Normal 26.0-34.0 [facility] Comment on above: Performed By: #### 1 460, [id number] #### [facility] [address] [facility] [place], [place] MCHC (RBC) [Mass/Vol] 33.2 g/dL Normal 32.0-35.9 The [facility] Comment on above: Performed By: #### 1 4601, [id number] #### [facility] [address] [facility] [place], [place] MCV (RBC) [Entitic vol] 85 fL Normal 80-100 [facility] Comment on above: Performed By: #### 1 4601, [id number] #### [facility] [address] [facility] [place], [place] Platelet mean volume (Bld) [Entitic vol] 9.9 fL Normal 7.5-11.2 [facility] Comment on above: Performed By: #### 1 4601, [id number] #### [facility] [address] [facility] [place], [place] Platelets (Bld) [#/Vol] 109 10*3/uL Low 150-400 [facility] Comment on above: Performed By: #### 1 460, [id number] #### [facility] [address] [facility] [place], [place] RBC (Bld) [#/Vol] 2.77 10*6/uL Low 4.00-5.20 [facility] Comment on above: Performed By: #### 1 4601, [id number] #### [facility] [address] [facility] [place], [place] WBC (Bld) [#/Vol] 13.2 10*3/uL High 4.5-11.5 [facility] Comment on above: Performed By: #### 1 460, [id number] #### [facility] [address] [facility] [place], [place] Erythrocyte distribution width (RBC) [Ratio] 15.2 % High 11.5-14.5 The [facility] Comment on above: Performed By: #### C BDYFLD #### [facility] [address] [facility] [place], [place] Hematocrit (Bld) [Volume fraction] 17.7 % Critically low 36.0-46.0 The [facility] Comment on above: Performed By: #### C BDYFLD #### [facility] [address] [facility] [place], [place] Hemoglobin (Bld) [Mass/Vol] 6.0 g/dL Critically low 12.0-15.0 The [facility] Comment on above: Performed By: #### C BDYFLD #### [facility] [address] [facility] [place], [place] MCH (RBC) [Entitic mass] 27.9 pg Normal 26.0-34.0 The [facility] Comment on above: Performed By: #### C BDYFLD #### [facility] [address] [facility] [place], [place] MCHC (RBC) [Mass/Vol] 34.1 g/dL Normal 32.0-35.9 The [facility] Comment on above: Performed By: #### C BDYFLD #### [facility] [address] [facility] [place], [place] MCV (RBC) [Entitic vol] 82 fL Normal 80-100 The [facility] Comment on above: Performed By: #### C BDYFLD #### [facility] [address] [place] [address] [place], [place] Platelet mean volume (Bld) [Entitic vol] 10.1 fL Normal 7.5-11.2 The [facility] Comment on above: Performed By: #### C BDYFLD #### [facility] [address] [place] [address] [place], [place] Platelets (Bld) [#/Vol] 113 10*3/uL Low 150-400 The [facility] Comment on above: Performed By: #### C BDYFLD #### [facility] [address] [facility] [place], [place] RBC (Bld) [#/Vol] 2.17 10*6/uL Low 4.00-5.20 The [facility] Comment on above: Performed By: #### C BDYFLD #### [facility] [address] [facility] [place], [place] WBC (Bld) [#/Vol] 13.4 10*3/uL High 4.5-11.5 The [facility] Comment on above: Performed By: #### C BDYFLD #### [facility] [address] [place] [address] [place], [place] FIBRINOGENon 09-15-2020 FIBRINOGEN 372 mg/dL Normal 200-500 The [facility] Comment on above: Performed By: #### 1 4601, [id number] #### [facility] [address] [place] [address] [place], [place] LDHon 09-15-2020 LD 247 IU/L High 50-220 [facility] Comment on above: Performed By: #### L Jose, CH8 #### [facility] [address] [place] [address], PARTIAL THROMBOPLASTIN TIMEo n 09-15-2020 aPTT Coag (Bld) [Time] 26 s Normal 25-37 [facility] Comment on above: Performed By: #### 1 4601, [id number] #### [facility] [address] [place] [address] [place], [place] PROTHROMBIN TIME AND INRon 0 09-15-2020 INR Coag (PPP) [Relative time] 0.98 {INR} Normal 0.90-1.10 [facility] Comment on above: Performed By: #### 1 4601, [id number] #### [facility] [address] [place] [address] [place], [place] PT Coag (PPP) [Time] 11.1 s Normal 9.7-12.9 [facility] Comment on above: Performed By: #### 1 4601, [id number] #### [facility] [address] [place] [address] [place], [place] RED BLOOD CELL COMPONENTon 0 09-15-2020 BB ORDER ITEM Product status info to follow Normal [facility] Comment on above: Performed By: #### R BU #### S [facility] [address] [place] [address], RED BLOOD CELL UNIT STATUSon 09-15-2020 BLOOD PRODUCT CODE [id number] Normal [facility] Comment on above: Performed By: #### R BU #### [facility] [address] [place] [address], BLOOD PRODUCT DESCRIPTION Red Blood Cells Normal [facility] Comment on above: Performed By: #### R ALICIA #### [facility] [address] [place] [address], BLOOD PRODUCT STATUS Released to avail Normal [facility] Comment on above: Performed By: #### R BU #### S [facility] [address] [place] [address], BLOOD PRODUCT UNIT INFO [id number] Normal The [facility] Comment on above: Performed By: #### R BU #### S [facility] [address] [place], [place], BLOOD PRODUCT UNIT INFO [id number] Normal [facility] Comment on above: Performed By: #### R BU #### [facility] [address] [place] [address], BLOOD PRODUCT UNIT TYPE 6200 Normal [facility] Comment on above: Result Comment: A Po s Performed By: #### R BU #### S [facility] [address] [place] [address], CROSSMATCH INTERPRETATION Compatible (E) Normal The [facility] Comment on above: Performed By: #### R BU #### [facility] [address] [place] [address], ABO RH TYPEon 09-14-2020 ABO and Rh group Nom (Bld) Blood group A Rh(D) positive Normal The [facility] Comment on above: Performed By: #### 1 4601, [id number] #### [facility] [address] [place] [address] Dr [place], [place] CHROMOSOME ANALYSIS, BONE MA RROWon 09-14-2020 CHROMOSOME ANALYSIS, BONE MARROW Resulting Agency Address Site ID: [facility] Name: Alerts/Nessa [facility] Address: [address] [place] [address] [place] [address] Director: Shalom Dumont M.D.,PhD TNP TEST NOT PERFORMED Test cancelled for reorder purposes. Normal The [facility] Comment on above: Performed By: #### 1 4601, [id number] #### [facility] [address] [place] [address] [place], [place] CHROMOSOME ANALYSIS, TISSUEo n 09-14-2020 CHROMOSOME ANALYSIS, TISSUE CHROMOSOMES, TISSUE: TNP *Test Not Performed. * *Tissue culture and chromosome * *analysis identified insufficient * *metaphases for full cytogenetic * *interpretation. This test code is * *replaced with a code that * *summarizes the culture results. * *A fee for tissue culture will be * *included for this specimen. * Normal [facility] Comment on above: Order Comment: [facility] Agency Address Site ID: [facility] Name[facility] Address: [address] [place] [address] Dr [place], [place] Director: Shalom Dumont M.D.,PhD Performed By: #### 1 4601, [id number] #### [facility] [address] [place], [place] [id number] CHROMOSOME ANALYSIS, TISSUE CHROMOSOMES, TISSUE: see note Order ID: [id number] Specimen Type: Products of Conception Clinical Indication: IUFD RESULT: NORMAL FEMALE KARYOTYPE See NOTE INTERPRETATION: Chromosome analysis revealed normal G-band patterns within the limits of standard cytogenetic analysis. Please expect the results of any other concurrent study in a separate report. NOTE: This is a report on cultures set from chorionic villi. A tissue specimen ([id number]) did not provided outgrowth. NOMENCLATURE: 46,XX ASSAY INFORMATION: Method: G-Banding Cells Counted: 20 Colonies Counted: 0 Band Level: 450 Cells Analyzed: 5 Cells Karyotyped: 2 This test does not address genetic disorders that cannot be detected by standard cytogenetic methods, or rare events such as low level mosaicism or subtle rearrangements. Maternal cell contamination is not excluded. Lino Daly, Ph.D., [facility], [employer], Cytogenetics and Genomics, Electronic Signature: 10/06/2020 3:36 PM Normal [facility] Comment on above: Order Comment: The r eference range and other method performance specifications have not been established for this body fluid. The test must be integrated into the clinical context for interpretation. Performed By: #### G MARGIE BF #### [facility] [address] [place] [address], COMPLETE BLOOD COUNTon 09-14 Erythrocyte distribution width (RBC) [Ratio] 15.3 % High 11.5-14.5 The [facility] Comment on above: Performed By: #### C BC #### [facility] [address] [place] [address], Hematocrit (Bld) [Volume fraction] 20.5 % Low 36.0-46.0 [facility] Comment on above: Performed By: #### C BC #### [facility] [address] [place] [address], Hemoglobin (Bld) [Mass/Vol] 7.0 g/dL Low 12.0-15.0 [facility] Comment on above: Performed By: #### C BC #### [facility] [address] [place] [address], MCH (RBC) [Entitic mass] 27.7 pg Normal 26.0-34.0 The [facility] Comment on above: Performed By: #### C BC #### [facility] [address] [place] [address], MCHC (RBC) [Mass/Vol] 33.9 g/dL Normal 32.0-35.9 [facility] Comment on above: Performed By: #### C BC #### [facility] [address] [place] [address], MCV (RBC) [Entitic vol] 82 fL Normal 80-100 [facility] Comment on above: Performed By: #### C BC #### [facility] [address] [place] [address], Platelet mean volume (Bld) [Entitic vol] 10.3 fL Normal 7.5-11.2 [facility] Comment on above: Performed By: #### C BC #### [facility] [address] [place] [address], Platelets (Bld) [#/Vol] 123 10*3/uL Low 150-400 [facility] Comment on above: Performed By: #### C BC #### [facility] [address] [place] [address], RBC (Bld) [#/Vol] 2.51 10*6/uL Low 4.00-5.20 [facility] Comment on above: Performed By: #### C BC #### [facility] [address] [place] [address], WBC (Bld) [#/Vol] 18.1 10*3/uL High 4.5-11.5 [facility] Comment on above: Performed By: #### C BC #### [facility] [address] [place] [address], Erythrocyte distribution width (RBC) [Ratio] 15.4 % High 11.5-14.5 [facility] Comment on above: Performed By: #### 1 4601, [id number] #### [facility] [address] [place] [address] [place], [place] Hematocrit (Bld) [Volume fraction] 26.5 % Low 36.0-46.0 [facility] Comment on above: Performed By: #### 1 4601, [id number] #### [facility] [address] [place] [address] [place], [place] Hemoglobin (Bld) [Mass/Vol] 8.7 g/dL Low 12.0-15.0 [facility] Comment on above: Performed By: #### 1 4601, [id number] #### [facility] [address] [place] [address] [place], [place] MCH (RBC) [Entitic mass] 26.9 pg Normal 26.0-34.0 [facility] Comment on above: Performed By: #### 1 4601, [id number] #### [facility] [address] [facility] [place], [place] MCHC (RBC) [Mass/Vol] 32.7 g/dL Normal 32.0-35.9 [facility] Comment on above: Performed By: #### 1 4601, [id number] #### [facility] [address] [facility] [place], [place] MCV (RBC) [Entitic vol] 82 fL Normal 80-100 [facility] Comment on above: Performed By: #### 1 4601, [id number] #### [facility] [address] [facility] [place], [place] Platelet mean volume (Bld) [Entitic vol] 10.9 fL Normal 7.5-11.2 [facility] Comment on above: Performed By: #### 1 4601, [id number] #### [facility] [address] [facility] [place], [place] Platelets (Bld) [#/Vol] 235 10*3/uL Normal 150-400 [facility] Comment on above: Performed By: #### 1 4601, [id number] #### [facility] [address] [facility] [place], [place] RBC (Bld) [#/Vol] 3.22 10*6/uL Low 4.00-5.20 [facility] Comment on above: Performed By: #### 1 460, [id number] #### [facility] [address] [facility] [place], [place] WBC (Bld) [#/Vol] 22.9 10*3/uL High 4.5-11.5 [facility] Comment on above: Performed By: #### 1 4601, [id number] #### [facility] [address] [facility] [place], [place] FIBRINOGENon 09-14-2020 FIBRINOGEN 312 mg/dL Normal 200-500 The [facility] Comment on above: Performed By: #### 1 4601, [id number] #### [facility] [address] [facility] [place], [place] FIBRINOGEN 329 mg/dL Normal 200-500 The [facility] Comment on above: Performed By: #### R BU #### S [facility]OLOGY LABORATORY [address] [place] [address], LDHon 09-14-2020 LD 300 IU/L High 50-220 The [facility] Comment on above: Performed By: #### G MARGIE BF #### [facility] [address] [place] [address], PARTIAL THROMBOPLASTIN TIMEo n 09-14-2020 aPTT Coag (Bld) [Time] 20 s Low 25-37 [facility] Comment on above: Performed By: #### 1 [id number], [id number] #### [facility] [address] [facility] [place], [place] aPTT Coag (Bld) [Time] 27 s Normal 25-37 [facility] Comment on above: Performed By: #### R BU #### [facility] [address] [place], [place], PROTHROMBIN TIME AND INRon 0 09-14-2020 INR Coag (PPP) [Relative time] 1.02 {INR} Normal 0.90-1.10 [facility] Comment on above: Performed By: #### 1 [id number], [id number] #### [facility] [address] [facility] [place], [place] PT Coag (PPP) [Time] 11.5 s Normal 9.7-12.9 [facility] Comment on above: Performed By: #### 1 [id number], [id number] #### [facility] [address] [facility] [place], [place] INR Coag (PPP) [Relative time] 1.04 {INR} Normal 0.90-1.10 [facility] Comment on above: Performed By: #### R BU #### [facility] [address] [place] [address], PT Coag (PPP) [Time] 11.8 s Normal 9.7-12.9 [facility] Comment on above: Performed By: #### R BU #### S PATHOLOGY LABORATORY [address] [place], [place], Progress Noteson 09-14-2020 Director Of Estate Authentication Interface Message Text To room to [...] Hutton MD, MPH PGY-3, Obstetrics and Gynecology [phone] Normal [facility] RED BLOOD CELL COMPONENTon 0 09-14-2020 BB ORDER ITEM Product status info to follow Normal [facility] Comment on above: Performed By: #### C BDYFLD #### [facility] [address] [place] [address] [place], [place] RED BLOOD CELL UNIT STATUSon 09-14-2020 BLOOD PRODUCT CODE [id number] Normal The [facility] Comment on above: Performed By: #### 1 4601, [id number] #### [facility] [address] [place] [address] [place], [place] BLOOD PRODUCT DESCRIPTION Red Blood Cells Normal The [facility] Comment on above: Performed By: #### 1 4601, [id number] #### [facility] [address] [place] [address] [place], [place] BLOOD PRODUCT STATUS Transfused Normal The [facility] Comment on above: Performed By: #### 1 4601, [id number] #### [facility] [address] [facility] [place], [place] BLOOD PRODUCT UNIT INFO [id number] Normal The [facility] Comment on above: Performed By: #### 1 4601, [id number] #### [facility] [address] [facility] [place], [place] BLOOD PRODUCT UNIT INFO [id number] Normal The [facility] Comment on above: Performed By: #### 1 4601, [id number] #### [facility] [address] [facility] [place], [place] BLOOD PRODUCT UNIT TYPE 5100 Normal [facility] Comment on above: Result Comment: O Po s Performed By: #### 1 4601, [id number] #### [facility] [address] [facility] [place], [place] CROSSMATCH INTERPRETATION Compatible (IS) Normal The [facility] Comment on above: Performed By: #### 1 4601, [id number] #### [facility] [address] [facility] [place], [place] AEROBIC BODY FLUID CULTUREon 09-13-2020 AEROBIC BODY FLUID CULTURE C BDYFLD: No Growth GRAM STAIN: This Gram Stain was performed on a Cytocentrifuged specimen. No Polymorphonuclear Leukocytes seen 3+ Squamous Epithelial Cells No organisms seen Normal The [facility] Comment on above: Performed By: #### C BDYFLD #### [facility] [address] [place] [address] [place], [place] BASIC METABOLIC PANELon 08-18 Anion gap [Moles/Vol] 18 mmol/L High 5-13 The [facility] Comment on above: Performed By: #### G MARGIE BF #### S PATHOLOGY LABORATORY [address] [place] [address], Calcium [Mass/Vol] 9.2 mg/dL Normal 8.4-10.4 The [facility] Comment on above: Performed By: #### G MARGIE BF #### S PATHOLOGY LABORATORY [address] [place] [address], Chloride [Moles/Vol] 101 mmol/L Normal 97-111 The [facility] Comment on above: Performed By: #### G MARGIE BF #### S [facility] LABORATORY [address] [place] [address], CO2 [Moles/Vol] 21 mmol/L Normal 21-30 The [facility] Comment on above: Performed By: #### G MARGIE BF #### S PATH[facility] LABORATORY [address] [place] [address], Creatinine [Mass/Vol] 0.37 mg/dL Low 0.50-1.10 The [facility] Comment on above: Performed By: #### G MARGIE BF #### S PATHOLOGY LABORATORY [address] [place] [address], ESTIMATED GFR (CKD-EPI) 143 mL/min/1.73sqm Normal >=60 [facility] Comment on above: Performed By: #### Josselin HANSON BF #### S PATH[facility] LABORATORY [address] [place] [address], Glucose [Mass/Vol] 78 mg/dL Normal 68-110 [facility] Comment on above: Performed By: #### Josselin HANSON BF #### S [facility] LAB[facility]ATORY [address] [place] [address], Potassium [Moles/Vol] 4.2 mmol/L Normal 3.3-5.3 [facility] Comment on above: Performed By: #### Josselin HANSON BF #### S [facility] LAB[facility]ORY [address] [place] [address], Sodium [Moles/Vol] 136 mmol/L Normal 135-148 [facility] Comment on above: Performed By: #### Josselin HANSON BF #### [facility] PATHOLOG[facility]ORY [address] [place] [address], Urea nitrogen [Mass/Vol] 4 mg/dL Low 8-22 [facility] Comment on above: Performed By: #### Josselin HANSON BF #### [facility] PATHOLOG[facility]ATORY [address] [place] [address], CARDIOLIPIN ANTIBODY IGG/IGM on 09-13-2020 ACARD G < 1.6 Normal <20.0 [facility] Comment on above: Order Comment: Refer ence Range:Cardiolipin IgG AB : Negative :<20.0 GPL U/mL Positive :> or = to 20.0 GPL U/mLCardiolipin IgM AB : Negative :<20.0 MPL U/mL Positive :> or = to 20.0 MPL U/mL Performed By: #### Blessing BU #### [facility] PATHOLOGY [facility]ORY [address] [place] [address], ACARD M 0.7 MPL U/mL Normal <20.0 [facility] Comment on above: Order Comment: Refer ence Range:Cardiolipin IgG AB : Negative :<20.0 GPL U/mL Positive :> or = to 20.0 GPL U/mLCardiolipin IgM AB : Negative :<20.0 MPL U/mL Positive :> or = to 20.0 MPL U/mL Performed By: #### Blessing BU #### [facility] [address] [place] [address], CBC WITH DIFFERENTIALon 08-18 Basophils (Bld) [#/Vol] 0.03 10*3/uL Normal 0.00-0.20 [facility] Comment on above: Performed By: #### Josselin HANSON BF #### [facility] [address] [place] [address], Basophils/100 WBC (Bld) 0.3 % Normal <=1.9 The [facility] Comment on above: Performed By: #### Josselin HANSON BF #### [facility] PATH[facility] [address] [place] [address], Eosinophils (Bld) [#/Vol] 0.04 10*3/uL Normal 0.00-0.70 [facility] Comment on above: Performed By: #### Josselin HANSON BF #### [facility] [address] [place] [address], Eosinophils/100 WBC (Bld) 0.4 % Normal 0.1-4.0 [facility] Comment on above: Performed By: #### Josselin HANSON BF #### [facility] PATH[facility] [address] [place] [address], Erythrocyte distribution width (RBC) [Ratio] 15.3 % High 11.5-14.5 [facility] Comment on above: Performed By: #### Josselin HANSON BF #### [facility] PATH[facility] [address] [place] [address], Hematocrit (Bld) [Volume fraction] 37.8 % Normal 36.0-46.0 [facility] Comment on above: Performed By: #### Josselin HANSON BF #### [facility] [address] [place] [address], Hemoglobin (Bld) [Mass/Vol] 12.5 g/dL Normal 12.0-15.0 [facility] Comment on above: Performed By: #### Josselin MARGIE BF #### [facility] [address] [place] [address], Lymphocytes (Bld) [#/Vol] 2.28 10*3/uL Normal 1.00-4.80 [facility] Comment on above: Performed By: #### Josselin MARGIE BF #### [facility] [address] [place] [address], Lymphocytes/100 WBC (Bld) 22.1 % Low 24.0-44.0 The [facility] Comment on above: Performed By: #### Josselin MARGIE BF #### [facility] [address] [place] [address], MCH (RBC) [Entitic mass] 27.2 pg Normal 26.0-34.0 The [facility] Comment on above: Performed By: #### Josselin MARGIE BF #### [facility] [address] [place] [address], MCHC (RBC) [Mass/Vol] 33.2 g/dL Normal 32.0-35.9 The [facility] Comment on above: Performed By: #### Josselin MARGIE BF #### [facility] [address] [place] [address], MCV (RBC) [Entitic vol] 82 fL Normal 80-100 The [facility] Comment on above: Performed By: #### Josselin MARGIE BF #### [facility] [address] [place] [address], MONOCYTE DISTRIBUTION WIDTH Normal The [facility] Comment on above: Performed By: #### Josselin MARGIE BF #### [facility] [address] [place] [address], Monocytes (Bld) [#/Vol] 0.77 10*3/uL Normal 0.20-1.00 The [facility] Comment on above: Performed By: #### Josselin MARGIE BF #### [facility] [address] [place] [address], Monocytes/100 WBC (Bld) 7.4 % Normal 2.0-11.0 The [facility] Comment on above: Performed By: #### G MARGIE BF #### [facility] [address] [place], [place], Neutrophils (Bld) [#/Vol] 7.21 10*3/uL Normal 1.50-8.00 [facility] Comment on above: Performed By: #### Josselin HANSON BF #### [facility] [address] [place], [place], Neutrophils/100 WBC (Bld) 69.9 % Normal 31.0-76.0 [facility] Comment on above: Performed By: #### Josselin HANSON BF #### [facility] [address] [place] [address], Platelet mean volume (Bld) [Entitic vol] 10.7 fL Normal 7.5-11.2 [facility] Comment on above: Performed By: #### Josselin HANSON BF #### [facility] [address] [place], [place], Platelets (Bld) [#/Vol] 160 10*3/uL Normal 150-400 [facility] Comment on above: Performed By: #### Josselin HANSON BF #### [facility] [address] [place] [address], RBC (Bld) [#/Vol] 4.61 10*6/uL Normal 4.00-5.20 [facility] Comment on above: Performed By: #### Josselin HANSON BF #### [facility] [address] [place], [place], WBC (Bld) [#/Vol] 10.3 10*3/uL Normal 4.5-11.5 [facility] Comment on above: Performed By: #### Josselin HANSON BF #### [facility] [address] [place] [address], CYTOMEGALOVIRUS ANTIBODY IGG on 09-13-2020 CMV G Reactive Abnormal Nonreactive [facility] Comment on above: Performed By: #### C DENY G #### [facility] [address] [place] [address], CYTOMEGALOVIRUS ANTIBODY IGM on 09-13-2020 CMV M < 0.2 Normal [facility] Comment on above: Order Comment: Refer ence Range:Negative < or = to 0.8 AIEquivocal 0.9 - 1.0 AIPositive > or = to 1.1 AIThe magnitude of the result measured above the cut-off is not indicative of the total amount of the antibodies detected. The following results were obtained with the [employer] 2200 CMV IgM test. Results obtained from other manufacturers' assay methods may not be used interchangeably. Performed By: #### C BDYFLD #### [facility]ology [address] [place] [address] HEMOGLOBIN ELUTIONon 0 09-13-2020 CELL/ RHIG COMMENTS Detected Normal The [facility] Comment on above: Performed By: #### G MARGIE BF #### [facility] [address] [place] [address], HEMOGLOBIN ELUTION 0.00 % Normal <=0.00 The [facility] Comment on above: Performed By: #### G MARGIE BF #### [facility] [address] [place] [address], TOTAL MLS OF CELLS 0.00 Normal <=0.00 The [facility] Comment on above: Performed By: #### G MARGIE BF #### [facility] [address] [place] [address], FIBRINOGENon 09-13-2020 FIBRINOGEN 541 mg/dL High 200-500 The [facility] Comment on above: Performed By: #### G MARGIE BF #### [facility] [address] [place] [address], FLUID CELL COUNTon Clarity (U) Cloudy Normal [facility] Comment on above: Order Comment: The r eference range and other method performance specifications have not been established for this body fluid. The test must be integrated into the clinical context for interpretation. Performed By: #### G MARGIE BF #### S PATHOLOGY LABORATORY [address] [place] [address], Color (U) Brown Normal [facility] Comment on above: Order Comment: The r eference range and other method performance specifications have not been established for this body fluid. The test must be integrated into the clinical context for interpretation. Performed By: #### G MARGIE BF #### S PATHOLOG[facility] LABORATORY [address] [place] [address], RBC (Bld) [#/Vol] 0.48785 10*6/uL Normal Th e [facility] Comment on above: Order Comment: The r eference range and other method performance specifications have not been established for this body fluid. The test must be integrated into the clinical context for interpretation. Performed By: #### G MARGIE BF #### [facility] [address] [place] [address], WBC (Bld) [#/Vol] 0.004 10*3/uL Normal [facility] Comment on above: Order Comment: The r eference range and other method performance specifications have not been established for this body fluid. The test must be integrated into the clinical context for interpretation. Performed By: #### G MARGIE BF #### [facility] [address] [place] [address], FLUID DIFFERENTIALon 021 CELLS COUNTED TOTAL # IN BLOOD 7 Normal [facility] Comment on above: Performed By: #### G MARGIE BF #### [facility] [address] [place] [address], FLUID, LYMPHOCYTES 57 % Normal [facility] Comment on above: Performed By: #### G MARGIE BF #### [facility] [address] [place] [address], FLUID, MONOCYTES/MACROPHA GES 14 % Normal [facility] Comment on above: Performed By: #### G MRAGIE BF #### S PATHOLOGY LABORATORY [address] [place] [address], FLUID, NEUTROPHILS 29 % Normal [facility] Comment on above: Performed By: #### G MARGIE BF #### S PATHOLOGY LABORATORY [address] [place] [address], GLUCOSE, BODY FLUIDon 2020 GLUCOSE, FLUID 18 mg/dL Normal [facility] Comment on above: Order Comment: The r eference range and other method performance specifications have not been established for this body fluid. The test must be integrated into the clinical context for interpretation. Performed By: #### G MARGIE BF #### [facility] [address] [place] [address], HEMOGLOBIN A1Con 09-13-2020 Glucose [Mass/Vol] 80 mg/dL Normal [facility] Comment on above: Order Comment: HbA1c of 5.7-6.4% have increased risk for diabetes and CV(Source :ADA 2014 Standard of Medical Care in Diabetes) Performed By: #### Blessing VARGAS #### S PATHOLOGY LABORATORY [address] [place] [address], HbA1c (Bld) [Mass fraction] 4.4 % Normal 4.0-5.6 [facility] Comment on above: Order Comment: HbA1c of 5.7-6.4% have increased risk for diabetes and CV(Source :ADA 2014 Standard of Medical Care in Diabetes) Performed By: #### Blessing VARGAS #### S PATH[facility] LABORATORY [address] [place] [address], HEPATIC FUNCTION PANELon Albumin [Mass/Vol] 2.7 g/dL Low 3.4-5.1 The [facility] Comment on above: Performed By: #### Louis Garcia, CH8 #### S PATHOLOGY LABORATORY [address] [place] [address], ALK 101 IU/L Normal 40-200 The [facility] Comment on above: Performed By: #### Louis Garcia, CH8 #### [facility] [address] [place] [address], ALT [Catalytic activity/Vol] 18 U/L Normal 7-40 The [facility] Comment on above: Performed By: #### Louis Garcia, CH8 #### S PATH[facility] LABORATORY [address] [place] [address], AST [Catalytic activity/Vol] 8 U/L Normal 7-40 The [facility] Comment on above: Result Comment: Hemo lysis present Performed By: #### Louis Garcia, CH8 #### S PATHOLOG[facility] LABORATORY [address] [place] [address], Bilirubin [Mass/Vol] 1.9 mg/dL High 0.1-1.5 The [facility] Comment on above: Performed By: #### Louis Garcia, CH8 #### S PATHOLOGY LABORATORY [address] [place] [address], Bilirubin.direct [Mass/Vol] 0.80 mg/dL High 0.10-0.30 [facility] Comment on above: Performed By: #### L AISHA Garcia8 #### [facility] [address] [place] [address], Protein [Mass/Vol] 5.8 g/dL Low 6.2-8.3 The [facility] Comment on above: Performed By: #### Louis Garcia, AISHA8 #### [facility] [address] [place] [address], HEPATITIS B SURFACE ANTIGENo n 09-13-2020 HBSAG Non-Reactive Normal Non-Reactive [facility] Comment on above: Performed By: #### H BSAG #### [facility] [address] [place] [address], HEPATITIS C ANTIBODYon 09-13 HCV Non-Reactive Normal Nonreactive The [facility] Comment on above: Performed By: #### 1 4601, [id number] #### [facility] [address] [place] [address] [place], [place] HIV1 HIV2 AGAB SCRNon 2020 HIV AG-AB SCREEN Non-Reactive Normal Non-Reactive The [facility] Comment on above: Order Comment: HIV I nformation: ???[place] Rev. code 3701.243(E):This information has been disclosed [...] #### R BU #### S PATHOLOGY LABORATORY [address] [place] [address], LDHon 09-13-2020 LD 501 IU/L High 50-220 The [facility] Hospital[facility] Technology[facility] Comment on above: Result Comment: Hemo lysis present Performed By: #### C BDYFLD #### [facility] [address] [facility] [place], [place] LUPUS ANTICOAGULANT PANELon 09-13-2020 [place] Negative Normal Negative The [facility] Comment on above: Order Comment: [facility] Agency Address Site ID: AMD Name: [employer] [facility] Address: [address] [place] [address] Dr Antoine[place], [place] Director: Shalom Dumont M.D.,PhD Performed By: #### 1 4601, [id number] #### [facility] [address] [facility] [place], [place] NOVEL CORONAVIRUS (COVID-19) on 09-13-2020 SARS-CoV-2 (COVID-19) RNA AD+probe Ql (Unsp spec) Not detected Normal Not Detected The [facility] Comment on above: Order Comment: This test is intended for use only under Emergency Use Authorization (EUA). This test was developed, and its performance characteristics determined by [facility] which is certified under CLIA as qualified to perform high complexity clinical laboratory testing. Result Comment: This assay was performed using [employer] RTPCR technology. Performed By: #### 1 4601, [id number] #### [facility] [address] [facility] [place], [place] PARTIAL THROMBOPLASTIN TIMEo n 09-13-2020 aPTT Coag (Bld) [Time] 29 s Normal 25-37 The [facility] Comment on above: Performed By: #### 1 4601, [id number] #### [facility] [address] [facility] [place], [place] PARVOVIRUS B-19 ANTIBODIESon 09-13-2020 PARVOVIRUS B19 IGG 5.1 High <0.9 The [facility] Comment on above: Order Comment: [facility] Agency Address Site ID: AMD Name: [employer] [facility] Address: [address] [place] [address] Dr AntoineD[place]rose, [place] Director: Shalom Dumont M.D.,PhD Performed By: #### C BDYFLD #### [facility] [address] [facility] [place], [place] PARVOVIRUS B19 IGM 0.1 Normal <0.9 The [facility] Comment on above: Order Comment: [facility] Agency Address Site ID: [id number] Name: [facility] Address: [address] [place] [address] [place], [place] Director: Shalom Dumont M.D.,PhD Result Comment: [...] PCR. Performed By: #### C BDYFLD #### [facility] [address] [facility] [place], [place] PROTHROMBIN TIME AND INRon 0 09-13-2020 INR Coag (PPP) [Relative time] 0.95 {INR} Normal 0.90-1.10 The [facility] Comment on above: Performed By: #### 1 4601, [id number] #### [facility] [address] [facility] [place], [place] PT Coag (PPP) [Time] 10.7 s Normal 9.7-12.9 [facility] Comment on above: Performed By: #### 1 [id number], [id number] #### [facility] [address] [facility] [place], [place] RUBELLAon 09-13-2020 RUB 13.0 IU/mL Normal [facility] Comment on above: Order Comment: Nonre [...] IgG EIA assay. Values obtained with different software release manager???s assay methods may not be used interchangeably. Performed By: #### C BDYFLD #### [facility]ology [address] [place] [address] [place], [place] RUBELLA INTERPRETATION Equivocal Normal The [facility] Comment on above: Order [...] IgG EIA assay. Values obtained with different software release manager???s assay methods may not be used interchangeably. Performed By: #### C BDYFLD #### [facility] Pathology [address] [place] [address] [place], [place] SYPHILIS WITH CONFIRMATIONon 09-13-2020 SYPHILIS TOTAL (IGG/IGM) Non-Reactive Normal Non-Reactive The [facility] Comment on above: Order Comment: No Se rologic evidence of syphilis.A nonreactive result does not exclude the possibility of exposure to or infection with T. pallidum. Antibodies may be at low or undetectable levels in incubating or early primary disease and in some clinical conditions. Performed By: #### R BU #### S PATHOLOGY LABORATORY [address] [place] [address], TPPA Normal The [facility] Comment on above: Order Comment: No Se rologic evidence of syphilis.A nonreactive result does not exclude the possibility of exposure to or infection with T. pallidum. Antibodies may be at low or undetectable levels in incubating or early primary disease and in some clinical conditions. Performed By: #### R BU #### S PATHOLOGY LABORATORY [address] [place] [address], T4 BINDING GLOBULINon 2020 THYROXINE BINDING GLOBULIN 45.8 mcg/mL High 13.5-30.9 The [facility] Comment on above: Order Comment: [employer] Address Site ID: AMD Name: Alerts/Nessa JacobsonyDellrose [place] Address: [address] [place] [address] Dr Jacobsony, [place] Director: Shalom Dumont M.D.,PhD Result Comment: To convert to nmol/L, multiply the result by 18.5. Performed By: #### C BDYFLD #### [facility] [address] [facility] [address] [place], [place] THYROXINE (T4), FREEon 09-13 T4 F 0.69 ng/dL Normal 0.45-1.80 [facility] Comment on above: Performed By: #### 1 [id number], [id number] #### [facility] [address] [facility] [place], [place] TOTAL PROTEIN WITH CREATININ E, RANDOM URINEon 09-13-2020 CREATININE, URINE 20 mg/dL Normal 10-300 [facility] Comment on above: Performed By: #### 1 [id number], [id number] #### [facility] [address] [facility] [place], [place] TOTAL PROTEIN, URINE < 6 Normal <=100 [facility] Comment on above: Performed By: #### 1 4601, [id number] #### [facility] [address] [facility] [place], [place] TP/CREAT RATIO < 300 High <=164 [facility] Comment on above: Performed By: #### 1 4601, [id number] #### [facility] [address] [facility] [place], [place] TOX SCREEN W/CONFIRM - OB/GY Non 09-13-2020 ALCOHOL - TOX W/ CONF Negative Normal Cutoff: 10 [facility] Comment on above: Order Comment: Scree n results are reported as positive (at or above the cutoff) or negative (below the cutoff).The GC/MS testing (if applicable) was developed and its performance characteristics determined by The [facility] in a manner consistent with CLIA requirements. This test has not been cleared or approved by the U.S. Food and Drug Administration; however, the FDA has determined that such clearance or approval is not necessary. Performed By: #### C BDYFLD #### [facility] [address] [facility] [place], [place] AMPH CL Negative Normal Cutoff: 1000 [facility] Comment on above: Order Comment: Scree n results are reported as positive (at or above the cutoff) or negative (below the cutoff).The GC/MS testing (if applicable) was developed and its performance characteristics determined by [facility] in a manner consistent with CLIA requirements. This test has not been cleared or approved by the U.S. Food and Drug Administration; however, the FDA has determined that such clearance or approval is not necessary. Performed By: #### C BDYFLD #### [facility] [address] [place], [place] CRISTAL CL Negative Normal Cutoff: 200 [facility] Comment on above: Order Comment: Scree n results are reported as positive (at or above the cutoff) or negative (below the cutoff).The GC/MS testing (if applicable) was developed and its performance characteristics determined by [facility] in a manner consistent with CLIA requirements. This test has not been cleared or approved by the U.S. Food and Drug Administration; however, the FDA has determined that such clearance or approval is not necessary. Performed By: #### C BDYFLD #### [facility] [address] [place], [place] BENZO CL Negative Normal Cutoff: 200 [facility] Comment on above: Order Comment: Scree n results are reported as positive (at or above the cutoff) or negative (below the cutoff).The GC/MS testing (if applicable) was developed and its performance characteristics determined by [facility] in a manner consistent with CLIA requirements. This test has not been cleared or approved by the U.S. Food and Drug Administration; however, the FDA has determined that such clearance or approval is not necessary. Performed By: #### C BDYFLD #### [facility] [address] [place], [place] COCAINE CL- TOX W/ CONF Negative Normal Cutoff: 300 [facility] Comment on above: Order Comment: Scree n results are reported as positive (at or above the cutoff) or negative (below the cutoff).The GC/MS testing (if applicable) was developed and its performance characteristics determined by [facility] in a manner consistent with CLIA requirements. This test has not been cleared or approved by the U.S. Food and Drug Administration; however, the FDA has determined that such clearance or approval is not necessary. Performed By: #### C BDYFLD #### [facility] [address] [facility] [place], [place] FENTANYL Negative Normal Cutoff: 1 [facility] Comment on above: Order Comment: Scree n results are reported as positive (at or above the cutoff) or negative (below the cutoff).The GC/MS testing (if applicable) was developed and its performance characteristics determined by [facility] in a manner consistent with CLIA requirements. This test has not been cleared or approved by the U.S. Food and Drug Administration; however, the FDA has determined that such clearance or approval is not necessary. Performed By: #### C BDYFLD #### [facility] [address] [facility] [place], [place] METH CL Negative Normal Cutoff: 300 [facility] Comment on above: Order Comment: Scree n results are reported as positive (at or above the cutoff) or negative (below the cutoff).The GC/MS testing (if applicable) was developed and its performance characteristics determined by [facility] in a manner consistent with CLIA requirements. This test has not been cleared or approved by the U.S. Food and Drug Administration; however, the FDA has determined that such clearance or approval is not necessary. Performed By: #### C BDYFLD #### [facility] [address] [facility] [place], [place] OPI CL Negative Normal Cutoff: 300 [facility] Comment on above: Order Comment: Scree n results are reported as positive (at or above the cutoff) or negative (below the cutoff).The GC/MS testing (if applicable) was developed and its performance characteristics determined by [facility] in a manner consistent with CLIA requirements. This test has not been cleared or approved by the U.S. Food and Drug Administration; however, the FDA has determined that such clearance or approval is not necessary. Performed By: #### C BDYFLD #### [facility] [address] [facility] [place], [place] OXYCODONE Negative Normal Negative, In Process [facility] Comment on above: Order Comment: Scree n results are reported as positive (at or above the cutoff) or negative (below the cutoff).The GC/MS testing (if applicable) was developed and its performance characteristics determined by [facility] in a manner consistent with CLIA requirements. This test has not been cleared or approved by the U.S. Food and Drug Administration; however, the FDA has determined that such clearance or approval is not necessary. Result Comment: Oxyc odone and metabolites of Oxycodone (Oxymorphone, Noroxycodone, and Noroxymorphone) are measured/detected in this assay method. Performed By: #### C BDYFLD #### [facility] [address] [facility] [place], [place] PCP CL Negative Normal Cutoff: 25 [facility] Comment on above: Order Comment: Scree n results are reported as positive (at or above the cutoff) or negative (below the cutoff).The GC/MS testing (if applicable) was developed and its performance characteristics determined by [facility] in a manner consistent with CLIA requirements. This test has not been cleared or approved by the U.S. Food and Drug Administration; however, the FDA has determined that such clearance or approval is not necessary. Performed By: #### C BDYFLD #### [facility] [address] [facility] [place], [place] THC CL - TOX W/ CONF Negative Normal Cutoff: 50 [facility] Comment on above: Order Comment: Scree n results are reported as positive (at or above the cutoff) or negative (below the cutoff).The GC/MS testing (if applicable) was developed and its performance characteristics determined by [facility] in a manner consistent with CLIA requirements. This test has not been cleared or approved by the U.S. Food and Drug Administration; however, the FDA has determined that such clearance or approval is not necessary. Performed By: #### C BDYFLD #### [facility] [address] [facility] [place], [place] TOXOPLASMOSIS IGGon 09-13-19 21 TOXOPLASMOSIS IGG AB Negative Normal Negative [facility] Comment on above: Performed By: #### 1 [id number], [id number] #### [facility] [address] [facility] [place], [place] TRIIODOTHYRONINE (T3)on 08-18 T3 140.9 ng/dL Normal 87.0-179.0 [facility] Comment on above: Performed By: #### L D, CH8 #### [facility] [address] [place] [address], TRIIODOTHYRONINE (T3), FREEo n 09-13-2020 FT3 3.0 pg/mL Normal 2.3-4.2 [facility] Comment on above: Performed By: #### C BDYFLD #### [facility] [address] [facility] [place], [place] TSHon 09-13-2020 TSH 1.638 uIU/mL Normal 0.450-5.330 [facility] Comment on above: Result Comment: Refe birgit range for women as applicable: First Trimester: 0. 050 to 3.700 uIU/mL Second Trimester: 0. 310 to 4.350 uIU/mL Third Trimester: 0. 410 to 5.180 uIU/mL Performed By: #### G MARGIE BF #### [facility] PATH[facility]Y LABORATORY [address] [place] [address], TYPE AND SCREENon 09-13-2020 ABO and Rh group Nom (Bld) Blood group A Rh(D) positive Normal [facility] Comment on above: Performed By: #### 1 [id number], [id number] #### [facility] [address] [facility] [place], [place] ABO and Rh group Nom (Bld) No Previous Results Normal [facility] Comment on above: Performed By: #### 1 4601, [id number] #### [facility] [address] [facility] [place], [place] ABSC INT Negative Normal [facility] Comment on above: Performed By: #### 1 4601, [id number] #### [facility] [address] [facility] [address] [place], [place] URIC ACIDon 09-13-2020 Urate [Mass/Vol] 6.0 mg/dL Normal 2.0-7.3 [facility] Comment on above: Performed By: #### C BDYFLD #### [facility] [address] [place], [place] CULTURE FOR BETA-HEMOLYTIC S TREPon 09-03-2020 CULTURE FOR BETA-HEMOLYTIC STREP C STREP: Negative for beta-hemolytic Streptococci group B. Normal [facility] Comment on above: Performed By: #### G MARGIE BF #### [facility] [address] [place], [place], [facility] Screen on 11-14-2018 Cholesterol in HDL mass conc 57 mg/dL Normal 40-59 [facility] Comment on above: Result Comment: ATP III [...] CHD Performed By: #### B WW #### [facility] [address] [place] [address] Cholesterol in LDL mass conc 108 mg/dL Normal 0-129 [facility] Comment on above: Result Comment: ATP III LDL Classification is Near Optimal. Performed By: #### B WW #### [facility] [address] [place] [address] Cholesterol mass conc 179 mg/dL Normal 0-199 [facility] Comment on above: Result Comment: ATP III Cholesterol classification is Desirable. Performed By: #### B WW #### [facility] [address] [place] [address] Triglyceride mass conc 72 mg/dL Normal 0-150 [facility] Comment on above: Result Comment: ATP III Triglycerides Classification is Normal. Effective: 08/23/2018 New reference range for this analyte has been established. Performed By: #### B WW #### [facility] [address] [place] [address] Glucose mass conc 83 mg/dL Normal 70-99 [facility] Comment on above: Result Comment: Effe ctive: 08/23/2018 New reference range for this analyte has been established. Performed By: #### B WW #### [facility] [address] [place] [address] EVENT MONITORon 08-03-2018 EVENT MONITOR [facility] [address] [place] [address] EVENT MONITOR PATIENT NAME: KAVON RUBY : 1990 MED REC NO: [id number] ROOM: ACCOUNT NO: [id number] ADMIT DATE: 06/28/2018 PROVIDER: Erma Miles NAME [...] twice a day. ERMA MILES GV/[id number]_T Doc#: [id number] CC: Jenna Bansal Normal [facility] CBC with Diffon 06-09-2018 Morphology Interp Cody (Bld) FEW Normal [facility] Comment on above: Result Comment: LARG E PLATELETS OCCASIONAL GIANT PLATELETS Performed By: #### Z FAST, CP, LIPR, MG, TSHX, VD25, CDP #### [facility] [address] [place] [address] Abs. Basophil 0.00 k/uL Normal 0.0-0.2 [facility] Comment on above: Performed By: #### Zuly FAST, CP, LIPR, MG, TSHX, VD25, CDP #### [place] [address] Abs.Neutrophil (Seg) 4.90 k/uL Normal 2.5-7.0 [facility] Comment on above: Performed By: #### Zuly FAST, CP, LIPR, MG, TSHX, VD25, CDP #### [place] [address] Basophils/100 WBC (Bld) 0 % Normal 0-2 [facility] Comment on above: Performed By: #### Zuly FAST, CP, LIPR, MG, TSHX, VD25, CDP #### [place] [address] Eosinophils #/vol (Bld) 0.10 10*3/uL Normal 0.0-0.4 [facility] Comment on above: Performed By: #### Zuly FAST, CP, LIPR, MG, TSHX, VD25, CDP #### [place] [address] Eosinophils/100 WBC (Bld) 1 % Normal 0-5 [facility] Comment on above: Performed By: #### Zuly FAST, CP, LIPR, MG, TSHX, VD25, CDP #### [place] [address] Erythrocyte distribution width Ratio (RBC) 16.3 % High 12.1-15.2 [facility] Comment on above: Performed By: #### Zuly FAST, CP, LIPR, MG, TSHX, VD25, CDP #### [place] [address] Hematocrit Volume Fraction (Bld) 36.4 % Normal 36-46 [facility] Comment on above: Performed By: #### Zuly FAST, CP, LIPR, MG, TSHX, VD25, CDP #### [facility] [address] [place] [address] Hemoglobin mass conc (Bld) 11.7 g/dL Low 12.0-16.0 [facility] Comment on above: Performed By: #### Zuly FAST, CP, LIPR, MG, TSHX, VD25, CDP #### [facility] [address] [place] [address] Lymphocytes #/vol (Bld) 3.30 10*3/uL Normal 1.0-4.8 [facility] Comment on above: Performed By: #### Zuly FAST, CP, LIPR, MG, TSHX, VD25, CDP #### [facility] [address] [place] [address] Lymphocytes/100 WBC (Bld) 38 % Normal 15-40 [facility] Comment on above: Performed By: #### Zuly FAST, CP, LIPR, MG, TSHX, VD25, CDP #### [facility] [address] [place] [address] MCH Entitic mass (RBC) 24.3 pg Low 26-34 [facility] Comment on above: Performed By: #### Zuly FAST, CP, LIPR, MG, TSHX, VD25, CDP #### [facility] [address] [place] [address] MCHC mass conc (RBC) 32.1 g/dL Normal 31-37 [facility] Comment on above: Performed By: #### Zuly FAST, CP, LIPR, MG, TSHX, VD25, CDP #### [facility] [address] [facility] [place] [address] MCV Entitic volume (RBC) 75.6 fL Low 80-100 [facility] Comment on above: Performed By: #### Zuly FAST, CP, LIPR, MG, TSHX, VD25, CDP #### [address] [place] [address] Monocytes #/vol (Bld) 0.40 10*3/uL Normal 0.0-1.0 [facility] Comment on above: Performed By: #### Z FAST, CP, LIPR, MG, TSHX, VD25, CDP #### [address] [place] [address] Monocytes/100 WBC (Bld) 4 % Normal 4-8 [facility] Comment on above: Performed By: #### Z FAST, CP, LIPR, MG, TSHX, VD25, CDP #### [address] [place] [address] Neutrophil (Seg) 57 % Normal 47-75 [facility] Comment on above: Performed By: #### Zuly FAST, CP, LIPR, MG, TSHX, VD25, CDP #### [place] [address] Platelets #/vol (Bld) 194 10*3/uL Normal 140-450 [facility] Comment on above: Performed By: #### Zuly FAST, CP, LIPR, MG, TSHX, VD25, CDP #### [address] [place] [address] RBC #/vol (Bld) 4.82 10*6/uL Normal 4.0-5.2 [facility] Comment on above: Performed By: #### Z FAST, CP, LIPR, MG, TSHX, VD25, CDP #### [address] [place] [address] WBC #/vol (Bld) 8.7 10*3/uL Normal 3.5-11.0 [facility] Comment on above: Performed By: #### Zuly FAST, CP, LIPR, MG, TSHX, VD25, CDP #### [address] [place] [address] Abs.Imm.Granulocyt e NOT REPORTED Normal 0.00-0.30 [facility] Comment on above: Performed By: #### Z FAST, CP, LIPR, MG, TSHX, VD25, CDP #### [facility] [address] [facility] [place] [address] Auto Diff Performed NOT REPORTED Normal [facility] Comment on above: Performed By: #### Z FAST, CP, LIPR, MG, TSHX, VD25, CDP #### [facility] [address] [facility] [place] [address] Immature granulocytes #/vol (Bld) NOT REPORTED Normal 0 [facility] Comment on above: Performed By: #### Z FAST, CP, LIPR, MG, TSHX, VD25, CDP #### [place] [address] NRBC Automated NOT REPORTED Normal [facility] Comment on above: Performed By: #### Zuly FAST, CP, LIPR, MG, TSHX, VD25, CDP #### [facility] [address] [facility] [place] [address] Platelet mean volume Entitic volume (Bld) NOT REPORTED Normal 6.0-12.0 [facility] Comment on above: Performed By: #### Zuly FAST, CP, LIPR, MG, TSHX, VD25, CDP #### [facility] [address] [facility] [place] [address] Platelets #/vol (Bld) NOT REPORTED Normal [facility] Comment on above: Performed By: #### Z FAST, CP, LIPR, MG, TSHX, VD25, CDP #### [address] [place] [address] RBC morphology finding Nom (Bld) NOT REPORTED Normal [facility] Comment on above: Performed By: #### Zuly FAST, CP, LIPR, MG, TSHX, VD25, CDP #### [facility] [address] [facility] [place], [place] [id number] [phone] WBC Morphology NOT REPORTED Normal [facility] Comment on above: Performed By: #### Z FAST, CP, LIPR, MG, TSHX, VD25, CDP #### [facility] [address] [facility] [place], [place] [id number] [phone] Comp Metabolic Profon 2017 (cont.) Normal [facility] Comment on above: Result Comment: Aver age GFR for 20-29 years old: 116 mL/min/1.73sq m Chronic Kidney Disease: <60 mL/min/1.73sq m Kidney failure: <15 mL/min/1.73sq m eGFR calculated using average adult body mass. Additional eGFR calculator available at: http://www.Smack[employer].com/multiple_crcl_2012.htm Performed By: #### Zuly FAST, CP, LIPR, MG, TSHX, VD25, CDP #### [facility] [address] [facility] [place] [address] ([phone] Albumin mass conc 4.3 g/dL Normal 3.5-5.2 [facility] Comment on above: Performed By: #### Zuly FAST, CP, LIPR, MG, TSHX, VD25, CDP #### [facility] [address] [place] [address] [phone] Alkaline Phos 77 U/L Normal 35-104 [facility] Comment on above: Performed By: #### Zuly FAST, CP, LIPR, MG, TSHX, VD25, CDP #### [facility] [address] [facility] [place] [address] [phone] ALT enzyme act/vol 28 U/L Normal 5-33 [facility] Comment on above: Performed By: #### Zuly FAST, CP, LIPR, MG, TSHX, VD25, CDP #### [facility] [address] [facility] [place] [address] ([phone]) Anion gap molar conc 11 mmol/L Normal 9-17 [facility] Comment on above: Performed By: #### Z FAST, CP, LIPR, MG, TSHX, VD25, CDP #### [facility] [address] [facility] [place] [address] AST enzyme act/vol 25 U/L Normal <32 [facility] Comment on above: Performed By: #### Zuly FAST, CP, LIPR, MG, TSHX, VD25, CDP #### [facility] [address] [place] [address] Bilirubin Ql (U) 0.30 mg/dL Normal 0.30-1.20 [facility] Comment on above: Performed By: #### Zuly FAST, CP, LIPR, MG, TSHX, VD25, CDP #### [facility] [address] [place] [address] BUN/CRE Ratio 27 High 9-20 [facility] Comment on above: Performed By: #### Zuly FAST, CP, LIPR, MG, TSHX, VD25, CDP #### [facility] [address] [place] [address] Calcium mass conc 9.2 mg/dL Normal 8.6-10.4 [facility] Comment on above: Performed By: #### Zuly FAST, CP, LIPR, MG, TSHX, VD25, CDP #### [facility] [address] [place] [address] Chloride molar conc 102 mmol/L Normal 98-107 [facility] Comment on above: Performed By: #### Zuly FAST, CP, LIPR, MG, TSHX, VD25, CDP #### [facility] [address] [place] [address] CO2 molar conc 27 mmol/L Normal 20-31 [facility] Comment on above: Performed By: #### Zuly FAST, CP, LIPR, MG, TSHX, VD25, CDP #### [facility] [address] [place] [address] Creatinine mass conc 0.45 mg/dL Low 0.50-0.90 [facility] Comment on above: Performed By: #### Z FAST, CP, LIPR, MG, TSHX, VD25, CDP #### [facility] [address] [facility] [place] [address] GFR, Amer >60 Normal >60 [facility] Comment on above: Performed By: #### Z FAST, CP, LIPR, MG, TSHX, VD25, CDP #### [facility] [address] [facility] [place] [address] GFR,non Amer >60 Normal >60 [facility] Comment on above: Performed By: #### Zuly FAST, CP, LIPR, MG, TSHX, VD25, CDP #### [facility] [address] [facility] [place] [address] Glucose mass conc 80 mg/dL Normal 70-99 [facility] Comment on above: Performed By: #### Zuly FAST, CP, LIPR, MG, TSHX, VD25, CDP #### [facility] [address] [facility] [place] [address] Potassium molar conc 4.1 mmol/L Normal 3.7-5.3 [facility] Comment on above: Performed By: #### Zuly FAST, CP, LIPR, MG, TSHX, VD25, CDP #### [facility] [address] [facility] [place] [address] Protein mass conc 8.1 g/dL Normal 6.4-8.3 [facility] Comment on above: Performed By: #### Z FAST, CP, LIPR, MG, TSHX, VD25, CDP #### [facility] [address] [facility] [place] [address] Sodium molar conc 140 mmol/L Normal 135-144 [facility] Comment on above: Performed By: #### Z FAST, CP, LIPR, MG, TSHX, VD25, CDP #### [facility] [address] [facility] [place] [address] Urea nitrogen mass conc 12 mg/dL Normal 6-20 [facility] Comment on above: Performed By: #### Z FAST, CP, LIPR, MG, TSHX, VD25, CDP #### [facility] [address] [facility] [place] [id number] Albumin/Globulin mass ratio NOT REPORTED Normal 1.0-2.5 [facility] Comment on above: Performed By: #### Z FAST, CP, LIPR, MG, TSHX, VD25, CDP #### [facility] [address] [facility] [place] [address] Staging: NOT REPORTED Normal [facility] Comment on above: Performed By: #### Z FAST, CP, LIPR, MG, TSHX, VD25, CDP #### [facility] [address] [facility] [place] [address] Lipid Profileon 06-09-2018 Cholesterol in HDL mass conc 66 mg/dL Normal >40 [facility] Comment on above: Result Comment: HDL Guidelines: <40 Undesirable 40-59 Borderline >59 Desirable Performed By: #### Z FAST, CP, LIPR, MG, TSHX, VD25, CDP #### [facility] [address] [facility] [place] [address] Cholesterol in LDL mass conc 133 mg/dL High 0-130 [facility] Comment on above: Result Comment: LDL Guidelines: <100 Desirable 100-129 Near to/above Desirable 130-159 Borderline >159 Undesirable Direct (measured) LDL and calculated LDL are not interchangeable tests. Performed By: #### Z FAST, CP, LIPR, MG, TSHX, VD25, CDP #### [facility] [address] [facility] [place] [address] Cholesterol mass conc 217 mg/dL High <200 [facility] Comment on above: Result Comment: Cholesterol Guidelines: <200 Desirable 200-240 Borderline >240 Undesirable Performed By: #### Z FAST, CP, LIPR, MG, TSHX, VD25, CDP #### [facility] [address] [facility] [place] [address] Cholesterol.total/ Cholesterol in HDL mass ratio 3.3 {ratio} Normal <5 [facility] Comment on above: Performed By: #### Z FAST, CP, LIPR, MG, TSHX, VD25, CDP #### [facility] [address] [facility] [place] [address] Triglyceride mass conc 91 mg/dL Normal <150 [facility] Comment on above: Result Comment: Triglyceride Guidelines: <150 Desirable 150-199 Borderline 200-499 High >499 Very high Based on AHA Guidelines for fasting triglyceride, April 2012. Performed By: #### Z FAST, CP, LIPR, MG, TSHX, VD25, CDP #### [facility] [address] [facility] [place] [address] Cholesterol in VLDL mass conc NOT REPORTED Normal 08-15 [facility] Comment on above: Performed By: #### Z FAST, CP, LIPR, MG, TSHX, VD25, CDP #### [facility] [address] [facility] [place] [id number] ([phone]) Magnesiumon 06-09-2018 Magnesium mass conc 2.3 mg/dL Normal 1.6-2.6 [facility] Comment on above: Performed By: #### Z FAST, CP, LIPR, MG, TSHX, VD25, CDP #### [facility] [address] [facility] [place] [address] Patient fasting?on 8 Patient fasting? YES Normal [facility] Comment on above: Performed By: #### Z FAST, CP, LIPR, MG, TSHX, VD25, CDP #### [facility] [address] [facility] [place] [address] TSH w/reflex to FT4on 2017 Thyrotropin Qn 1.44 m[IU]/L Normal 0.30-5.00 [facility] Comment on above: Performed By: #### Z FAST, CP, LIPR, MG, TSHX, VD25, CDP #### [facility] [address] [facility] [place] [address] Vitamin D 25 OHon 06-09-2018 Vitamin D 25 [place] 13.1 ng/mL Low 30.0-100.0 [facility] Comment on above: Result Comment: Reference Range: Vitamin D status Range Deficiency <20 ng/mL Mild Deficiency 20-30 ng/mL Sufficiency 30-100 ng/mL Toxicity >100 ng/mL Performed By: #### Z FAST, CP, LIPR, MG, TSHX, VD25, CDP #### [facility] [address] [facility] [place] [address] XR CHEST (2 VW)on 06-09-2018 XR CHEST (2 VW) TWO-VIEW CHEST REASON FOR STUDY: Tachycardia. COMPARISON: None. REPORT: Trachea, mediastinum, heart size, diaphragm, and bony elements are intact. No effusion or nodule or pneumothorax is noted. The diaphragm and bony elements are unremarkable. IMPRESSION: Nonacute two-view chest. Interpreted by: Sourav Parisi DO Signed by: Sourav Parisi DO 06/09/18 Final result Normal [facility] Vital Signs Date Time Vital Sign Value Performing Clinician Facility 11-25-2024 14:15-0400 Body mass index (BMI) [Ratio] 40.44 kg/m2 [place] Work Phone: [facility] 11-25-2024 14:15-0400 Body weight 110.22 kg [place] Work Phone: [facility] 11-25-2024 14:15-0400 Diastolic blood pressure 82 mm[Hg] [place] Work Phone: [facility] 11-25-2024 14:15-0400 Systolic blood pressure 130 mm[Hg] [employer] Work Phone: [facility] 03-21-2024 11:37-0400 Body mass index (BMI) [Ratio] 45.12 kg/m2 Luis Doug DO Work Phone: [facility] 03-21-2024 11:37-0400 Body weight 122.98 kg Luis Doug DO Work Phone: [facility] 03-21-2024 11:37-0400 Diastolic blood pressure 70 mm[Hg] Luis Doug DO Work Phone: [facility] 03-21-2024 11:37-0400 Systolic blood pressure 122 mm[Hg] Luis Doug DO Work Phone: [facility] 07-06-2023 16:25-0500 Body height 163.83 cm Alanis Zaidi Other [facility] Other 07-06-2023 16:25-0500 Body mass index (BMI) [Ratio] 37.85 kg/m2 Alanis Zaidi Other [facility] Other 07-06-2023 16:25-0500 Body temperature 100 [degF] Alanis Zaidi Other [facility] Other 07-06-2023 16:25-0500 Body weight 101.61 kg Alanis Zaidi Other [facility] Other 07-06-2023 16:25-0500 Respiratory rate 18 /min Alanis Zaidi Other [facility] Other 07-06-2023 16:25-0500 SaO2% (BldA) [Mass fraction] 99 % Alanis Zaidi Other [facility] Other 10-08-2022 03:06-0400 Body weight 125.6472 kg [facility] Comment on above: Performed By: #### CBC #### [facility] [address] [place] [address] [address] Brenna Mann Encounters Encounter Date Encounter Type Care Provider Facility Start: 01-29-2025 End: 01-29-2025 ambulatory Rohith FONTANA Facility:[facility] Start: 01-29-2025 End: 01-29-2025 Patient encounter procedure Rohith FONTANA [facility] Start: 01-09-2025 ambulatory Rohith FONTANA Facility:[facility] Start: 11-25-2024 End: 11-25-2024 Bamboo flowsheet Luis Doug DO Work Phone: [facility] Start: 11-25-2024 End: 11-28-2024 Bamboo flowsheet Luis Doug DO Work Phone: [facility] Start: 11-25-2024 End: 11-28-2024 Clinisync Result Encounter Luis Doug DO Work Phone: [facility] Department Unsolicited Start: 11-25-2024 End: 11-25-2024 Patient encounter procedure Luis Doug DO Work Phone: [facility] Start: 11-25-2024 End: 11-25-2024 Periodic preventive med est patient 18-39 yrs Luis Doug DO Work Phone: [facility] Comment on above: Well woman exam with routine gynecological exam; Decreased libido; PMDD (premenstrual dysphoric disorder) ([facility]) Start: 11-25-2024 End: 11-25-2024 ambulatory LUIS DOUG Not Available Start: 03-21-2024 End: 03-21-2024 Bamboo flowsheet Luis Doug DO Work Phone: [facility] Start: 03-21-2024 End: 03-21-2024 Bamboo flowsheet Luis Doug DO Work Phone: [facility] Start: 03-21-2024 End: 03-21-2024 Office outpatient visit 15 minutes Luis Doug DO Work Phone: [facility] Comment on above: PMDD (premenstrual d ysphoric disorder) ([facility]) Start: 03-21-2024 End: 03-21-2024 ambulatory LUIS DOUG Not Available Start: 08-20-2023 Letter encounter Nabor payan DO Work Phone: [facility] Start: 07-06-2023 End: 07-06-2023 ambulatory Jenna Bansal Facility:[facility] Start: 07-06-2023 End: 07-06-2023 Patient encounter procedure KOTA Bansal Work Phone: [facility] Work Phone: Start: 07-06-2023 End: 07-06-2023 ambulatory KOTA Bansal Work Phone: [facility] Work Phone: Start: 07-06-2023 Office outpatient ne w 20 minutes Alanis Zaidi [facility] Start: 12-24-2022 End: 12-24-2022 ambulatory Jenna Bansal Facility:[facility] Start: 10-26-2022 End: 10-27-2022 ambulatory HOMER RAMOS [facility] Start: 10-26-2022 End: 10-26-2022 Subsequent hospital visit by physician Jenna Bansal Work Phone: [facility] Start: 10-06-2022 End: 10-07-2022 ambulatory LUIS [...] without abnormal findings DR CHRISTOPHER HUNTER . [facility] Start: 02-26-2022 End: 02-27-[address] CHRISTOPHER HUNTER . Facility:[facility] Start: 02-26-2022 End: 02-27-2022 Encounter for general adult medical examination without abnormal findings DR CHRISTOPHER HUNTER . Facility:[facility] Start: 02-22-2022 End: 02-23-2022 ambulatory REFERRED SELF Facility:[facility] Start: 09-13-2020 End: 09-15-2020 Evaluation and management of inpatient JENNA HICKEY [facility] Start: 09-04-2020 End: 09-10-2020 ambulatory UNKNOWN PROVIDER [facility] Start: 09-03-2020 End: 09-03-2020 ambulatory NABOR MARROQUIN [facility] Start: 11-26-2018 End: 11-27-2018 Patient encounter procedure [facility] Start: 06-28-2018 End: 06-29-2018 Patient encounter procedure [facility] Start: 06-09-2018 End: 06-12-2018 Patient encounter procedure [facility] Start: 06-27-2016 End: 06-27-2016 Telephone encounter Ba Tellez MD Work Phone: [facility] Comment on above: Results Procedures Date Procedure Procedure Detail Performing Clinician Start: 11-25-2024 Urnls dip stick/tablet rgnt non-auto w/o micrscp Luis Doug DO Work Phone: Start: 11-25-2024 IGP,APTIMA HPV,AGE GDLN Luis Camacho DO Work Phone: Start: 07-06-2023 X-ray of [...] condition or complication Jenna Bansal Work Phone: section Rohith Myers Excision of ganglion of hand Rohith FONTANA Laser assisted in si tu keratomileusis Rohith FONTANA wisdom teeth extracted Scott FONTANA Plan of Treatment Date Care Activity Detail Author Start: 2038 Shingles (RZV) Vacci ne (1 of 2) Shingles (RZV) Vaccine (1 of 2) [facility] Start: 03-01-2032 DTaP/Tdap/Td vaccine (2 - Td or Tdap) DTaP/Tdap/Td vaccine (2 - Td or Tdap) [facility] Start: 03-01-2032 Tetanus vaccination Tetanus (T d or Tdap) [facility] Start: 07-04-2027 Screening for malign ant neoplasm of cervix [facility] Start: 12-16-2025 End: 12-16-2025 Patient encounter procedure 12/16/2025 3:00 PM EDT Office Visit [facility] [address] [id number] Luis Camacho, DO [address] [place], [place] [id number] [facility] Start: 03-17-2025 Influenza vaccination Influenz a Vaccine (Season Ended) [facility] Start: 11-25-2024 End: 11-25-2024 Patient encounter procedure [facility] Comment on above: Arrived Start: 03-21-2024 End: 03-21-2024 Patient encounter procedure 03/21/2024 10:50 AM EDT Office Visit [facility] [address] [facility] [phone] Luis Camacho, DO [address] [address] Arrived [facility] Comment on above: Arrived Start: 03-17-2024 Influenza vaccination Influenza Vacc ine (#1) [facility] Start: 03-17-2023 COVID-19 Vaccine ( season) COVID-19 Vaccine ( season) [facility] Start: 03-17-2023 Influenza vaccination Influenza Vacc ine (#1) [facility] Start: 11-16-2022 End: 11-16-2022 Patient encounter procedure 11/16/2022 Routine Perinatology [facility] Start: 09-01-2022 Hepatitis B vaccination Hepati tis B (HBV) Vaccine (3 of 3 - 19+ 3-dose series) [facility] Start: 05-12-2021 COVID-19 Vaccine (3 - Booster for Pfizer series) COVID-19 Vaccine (3 - Booster for Pfizer series) [facility] Start: 03-17-2021 Influenza vaccination INFLUENZ A (Season Ended) [facility] Start: 2018 HPV TESTING HPV TESTING [facility] Start: 2018 Screening for malign ant neoplasm of cervix [facility] Start: 2009 PAP TESTING PAP TESTING [facility] Start: 2009 Screening for malign ant neoplasm of cervix Pap smear [facility] Start: 11-12-2007 Urine microalbumin profile DTAP,TDAP,TD (1 - Tdap) [facility] Start: 2006 HEPATITIS C SCREENING HEPATITIS C SC REENING [facility] Start: 2006 Hepatitis C screening Hepatitis C sc reen [facility] Start: 2006 HIV SCREENING HIV SCREENING [facility] Start: 11-12-2003 HIV screening HIV screen [facility] Start: 2000 Adult depression screening assessment DEPRESSION SCREENING [facility] Start: 2000 Depression Screen Depression Screen [facility] Start: 1989 Varicella vaccine (1 of 2 - 2-dose childhood series) Varicella vaccine (1 of 2 - 2-dose childhood series) [facility] End: 10-26-2022 Alpha Fetoprotein, Maternal [facility] Work Phone: Comment on above: Once for 1 Occurrenc es starting 10/26/2022 until 10/26/2022 End: 10-26-2022 Antithrombin 3 Activity [employer] Phone: Comment on above: Once for 1 Occurrenc es starting 10/26/2022 until 10/26/2022 Cytology Cervical or vaginal smear or scraping study Pap Smear Pathology and Cytology Routine Well woman exam with routine gynecological exam Ordered: 11/25/2024 [employer] Work Phone: Comment on above: Ordered: 11/25/2024 End: 10-26-2022 Factor 5 [employer] Phone: Comment on above: Once for 1 Occurrenc es starting 10/26/2022 until 10/26/2022 Human papilloma viru s DNA [Presence] in Unspecified specimen by Probe with amplification HPV DNA probe, amplified Microbiology Routine Well woman exam with routine gynecological exam Ordered: 11/25/2024 [employer] Comment on above: Ordered: 11/25/2024 Lupus Anticoagulant Lupus Antico agulant Lab Routine 10/26/2022 5:16 PM EDT [employer] Work Phone: End: 10-26-2022 MTHFR mutation [employer] Phone: Comment on above: Once for 1 Occurrenc es starting 10/26/2022 until 10/26/2022 End: 10-26-2022 Protein C Functional [employer] Phone: Comment on above: Once for 1 Occurrenc es starting 10/26/2022 until 10/26/2022 End: 10-26-2022 Protein S Activity [employer] Phone: Comment on above: Once for 1 Occurrenc es starting 10/26/2022 until 10/26/2022 End: 10-26-2022 Reflex Order [employer] Phone: Comment on above: Once for 1 Occurrenc es starting 10/26/2022 until 10/26/2022 Immunizations Immunization Date Immunization Notes Care Provider Tu [facility] 04-01-2022 hepatitis B vaccine, adult dosage Nabor Marroquin DO Work Phone: [facility] 04-01-2022 Influenza, injectabl e, Madin [place] Canine Kidney, preservative free, quadrivalent Nabor Marroquin DO Work Phone: [facility] 09-16-2022 influenza virus vaccine, unspecified formulation Nabor Noyolaer DO Work Phone: [facility] 03-01-2022 hepatitis B vaccine, adult dosage Nabor Marroquin DO Work Phone: [facility] 03-01-2022 measles, mumps and rubella virus vaccine Nabor Noyolaer DO Work Phone: [facility] 03-01-2022 tetanus toxoid, reduced diphtheria toxoid, and acellular pertussis vaccine, adsorbed Nabor Noyolaer DO Work Phone: [facility] 03-17-2021 SARS-CoV-2 (COVID-19 ) mRNA BNT-162b2 vax Rohiht NILL [facility] Comment on above: Result Comment: 2024: TPVALL 02-24-2021 SARS-CoV-2 (COVID-19 ) mRNA BNT-162b2 vax Rohith NILL [facility] Comment on above: Result Comment: 2024: TPVALL 04-16-2017 influenza, injectabl e, quadrivalent, preservative free Nabor Marroquin DO Work Phone: [facility] 02-11-2013 HPV, unspecified formulation Nabor Noyolaer DO Work Phone: [facility] 10-15-2012 HPV, unspecified formulation Nabor Noyolaer DO Work Phone: [facility] 08-13-2012 HPV, unspecified formulation Nabor Peñalozatzer DO Work Phone: [facility] 11-25-2010 tetanus toxoid, reduced diphtheria toxoid, and acellular pertussis vaccine, adsorbed Rohith NILL [facility] Comment on above: Reason for Medicatio n: Other (see comment) Result Comment: adac el given in right deltoid under BALTAZAR Kilgore supervision. CLAUDIA Conley Payers Date Payer Category Payer Private Health Insurance [id number] 2019 Unknown [id number] 2018 Medicaid [facility] [id number] 2018-Present [phone] [address] [place] [address] Medicaid HMO [id number] 2017 Unknown [id number] 2016 Medicaid MEDICAID [facility] MEDICAID [id number] 2016-Present Medicaid [id number] 2015 Unknown HOSPITAL/MEDICAL GENERIC MEDICAL GENERIC [id number] 2015-Present Indemnity [id number] 2015 Unknown [id number] 1988 Unknown [id number] 2.16.840.1.183692.3.579.2. 174 1988 Unknown [id number] 2.16.840.1.674200.3.579.2. 174 1988 Unknown [id number] 2.16.840.1.295493.3.579.2. 174 1988 Unknown [id number] 2.16.840.1.041244.3.579.2. 174 1988 Unknown [id number] 2.16.840.1.437768.3.579.2. 174 1988 Unknown [id number] 2.16.840.1.306496.3.579.2. 174 1988 Unknown [id number] 2.16.840.1.488694.3.579.2. 174 1988 Unknown [id number] 2.16.840.1.532929.3.579.2. 732 1988 Unknown [id number] 2.16.840.1.726465.3.579.2. 732 1988 Unknown [id number] 2.16.840.1.055644.3.579.2. 732 1988 Unknown [id number] 2.16.840.1.650918.3.579.2. 732 1988 Unknown [id number] 2.16.840.1.089070.3.579.2. 647 1988 Unknown [id number] 2.16.840.1.893192.3.579.2. 593 1988 Unknown [id number] 2.16.840.1.309168.3.579.2. 593 1988 Unknown [id number] 2.16.840.1.492180.3.579.2. 593 1988 Unknown [id number] 2.16.840.1.937506.3.579.2. 593 1988 Unknown [id number] 2.16.840.1.662853.3.579.2. 593 1988 Unknown [id number] 2.16.840.1.711861.3.579.2. 593 1988 Unknown [id number] 2.16.840.1.950955.3.579.2. 593 1988 Unknown [id number] 2.16.840.1.855065.3.579.2. 593 1988 Unknown [id number] 2.16.840.1.318352.3.579.2. 593 1988 Unknown [id number] 2.16.840.1.745150.3.579.2. 593 1988 Unknown [id number] 2.16.840.1.067336.3.579.2. 593 1988 Unknown [id number] 2.16.840.1.017521.3.579.2. 175 1988 Unknown [id number] 2.16.840.1.364405.3.579.2. 1259 1988 Unknown [id number] 2.16.840.1.340440.3.579.2. 1259 1988 Unknown [id number] 2.16.840.1.040396.3.579.2. 727 1988 Unknown [id number] 2.16.840.1.503823.3.579.2. 727 1959 Self-pay 1959 Unknown [id number] 1959 Unknown [id number] 1959 Unknown [id number] Unknown [id number] 2.16.840.1.302723.3.579.2. 593 Unknown Regular Insurance [id number] Unknown [id number] 2.16.840.1.742454.3.579.2. 531 Unknown [id number] 2.16.840.1.207341.3.579.2. 531 Social History Date Type Detail Facility Start: 06-16-2016 End: 01-29-2025 Tobacco smoking status [facility] Never smoker [employer] Start: 06-16-2016 End: 10-26-2022 Alcohol intake Current non-drinker of alcohol (finding) [facility] Start: 1990 Sex Assigned At Not on file [facility] Start: 10-26-2022 End: 01-02-2023 Tobacco use and exposure Smokeless tobacco non-user [employer] Phone: Start: 07-02-2022 [employer] Phone: Start: 1990 Sex Assigned At Female [facility] Start: 04-04-2023 End: 11-08-2023 Sex Assigned At [place] [facility] Tobacco smoking stat [facility] Tobacco smoking consumption unknown [facility] Start: 11-22-2023 End: 03-21-2024 Alcoholic beverage intake Lifetime non-drinker (finding) [facility] Start: 04-04-2023 End: 11-08-2023 History of Social function [facility] Start: 01-23-2023 Alcohol Comment caffeine: none [facility] Tobacco smoking status Never [facility] Sexual Orientation [facility] Start: 10-05-2018 Sex [facility] (finding[facility] Goals Date Patient Goal Desired Activity /State Personal health goal Clinical Notes 06-27-2016 to 01-29-2025 Alaina Grewal LPN - 11/25/2024 2:00 PM EDTSjanelle Grewal LPN - 03/21/2024 10:50 AM EDT Note Date & Type Note Facility 01-29-2025 Note General Surgery Offi ce/Clinic Note Chief Complaint consultation for colonoscopy HPI Staff 34 year old female presents on consultation from Dr. Hunter for colonoscopy. Denies abdominal or rectal pain. No rectal bleeding or change in bowel habits. Denies nausea, vomiting or weight loss. Mother with history of colon cancer, diagnosed age 70. Never had colonoscopy in the past. History of Present Illness 34 yo female with h/o anemia, SVT, referred for screening colonoscopy; family h/o colon cancer in patient's mother, dx at age 70; patient denies change in bms or blood in stools, no abd complaints; abd operations significant for x 5; no previous colonoscopy; patient denies change in bms or blood in stools, no abd complaints; no asa or NSAID use; no tobacco use; no fmhx of IBD. Review of Systems PHQ Score Initial Depression Screen Score: 0 SCORE ROS - Provider Constitutional: no fever, no sweats, no weight loss. Eyes: yes glasses, no blurred vision, no visual loss. ENMT: no dentures, no hoarseness, no swallowing difficulties, no hearing loss, no ear infection(s), no nose bleeds. Cardiovascular: normal blood pressure, no chest pain, regular heartbeat, no heart murmur. Respiratory: no shortness of breath, no cough, no asthma, no wheezing. Gastrointestinal: no nausea, no vomiting, no diarrhea, no constipation, no blood in stool, no change in bowel habits, no abdominal pain, no hepatitis. Genitourinary: no kidney stones, no urine infection, no dysuria. Musculoskeletal: no pain, no weakness. Skin: no changing moles, no rash, no skin lumps. Neurologic: no seizures, no epilepsy, no headache. Psychiatric: no emotional or psychiatric problem. Heme/Lymph: no bleeding problems, no anemia, no blood clots, no transfusions. Allergy/Immunologic: no swollen lymph nodes/glands, no IV drug abuse. Other: Additional ROS info: Except as noted in the above Review of Systems and in the History of Present Illness, all other systems have been reviewed and are negative or noncontributory. Physical Exam Vitals & Measurements HR: 70(Peripheral) RR: 16 BP: 118/80 HT: 165 cm HT: 65 in WT: 105.6 kg WT: 232.808 lb BMI: 38.79 HEENT: normal conjunctiva, sclera clear, no scleral icterus, EOM intact, PERRLA, oral mucosa moist without lesions. Neck: trachea midline, no mass, symmetric, no thyromegaly or nodules, no adenopathy Respiratory: lungs CTA, respirations non labored. Cardiovascular: regular rate and rhythm, no murmur, no pedal edema or varicosities. Gastrointestinal: obese, soft, non distended, no tenderness, no masses, no palpable hernias, diastasis recti no, no hepatosplenomegaly; normal bs Musculoskeletal: normal gait, digits and nails without infection, nodes, cyanosis, clubbing. Skin: no rashes, no lesions, no ulcers, no subcutaneous nodules, induration. Psychiatric/Neuro: oriented to time, place, person, judgement normal, affect appropriate for age, insight intact, no focal deficits. Tests:, review of old records completed , Discussed surgical options, risks, and possible complications with patient. Assessment/Plan 1. Family history of colon cancer in mother (Z80.0: Family history of malignant neoplasm of digestive organs) plan colonoscopy under anesthesia, informed consent obtained. Follow-up No qualifying data available Problem List/Past Medical History Ongoing Anemia BMI 38.0-38.9,adult Family history of colon cancer in mother Obesity due to excess calories Supraventricular tachycardia Historical No qualifying data Procedure/Surgical History section, section, section, section, section, Excision of ganglion cyst of hand, LASIK - laser assisted in situ keratomileusis, wisdom teeth extracted. Medications ferrous sulfate 325 mg Tab, 325 mg= 1 tab(s), Oral, BID metoprolol succinate 25 mg ER Tab, 25 mg, Oral, BID semaglutide 0.25 mg/0.5 mL (0.25 mg dose) subcutaneous solution (Wegovy), 0.25 mg, SubCutaneous, qWeek Slynd 4 mg oral tablet, Oral Allergies Adhesive Bandage (Rash) No Known Medication Allergies Social History Alcohol - Denies Alcohol Use, 04/21/2010 Never., 01/27/2025 Substance Abuse - Denies Substance Abuse, 04/21/2010 Never., 01/27/2025 Tobacco - Denies Tobacco Use, 04/21/2010 Never (less than 100 in lifetime) Tobacco Use:. Never Smokeless Tobacco Use:., 01/29/2025 Family History Diabetes mellitus type 2: Mother. Hypertension: Mother. Primary malignant neoplasm of colon: Mother and Uncle. Immunizations Vaccine Date Status Comments SARS-CoV-2 (COVID-19) mRNA BNT-162b2 vax 03/17/2021 Recorded 2025-01-15: TPVALL SARS-CoV-2 (COVID-19) mRNA BNT-162b2 vax 02/24/2021 Recorded 2025-01-15: TPVALL diphtheria/pertussis, acel/tetanus adult 11/25/2010 Given Other (see comment) adacel given in right deltoid under BALTAZAR Kilgore supervision. CLAUDIA Conley [facility] Comment on above: Result Comment: Elec tronically Signed By: MARIZOL ENGLISH, Rohith Delong\Date and Time Signed: 01/29/25 14:37 EDT 11-25-2024 History of Present illness Narrative Reason for Appointment: Patient ID: [...] Noted Axillary lump, right 01/24/2023 Clotting disorder ([facility]/HCC) 01/24/2023 Dyssomnia 01/24/2023 ventricular septal defect affecting [...] anomaly not found 01/11/2018 SVT (supraventricular tachycardia) ([facility]) 06/22/2018 Resolved Ambulatory Problems Diagnosis Date Noted No Resolved Ambulatory Problems Past Medical History: Diagnosis Date Depression ([facility]) Encounter for fertility planning Female pelvic pain demise, greater than 22 weeks, antepartum, fetus 1 Fibroid uterus Inability to sleep Miscarriage Obesity (BMI 30-39.9) 2010 Varicella zoster [place] teeth removed HISTORY PAST MEDICAL HISTORY SOCIAL HISTORY Past Medical History: Diagnosis Date Axillary lump, right Clotting disorder ([facility]) Depression ([facility]) Post traumatic Stress Encounter for fertility planning Female pelvic pain demise, greater than 22 weeks, antepartum, fetus 1 Fibroid uterus Inability to sleep Miscarriage Obesity (BMI 30-39.9) Pain and tenderness 2010 Varicella zoster [place] teeth removed Social History Tobacco Use Smoking [...] LOW TRANSVERSE X4 SECTION, LOW TRANSVERSE 02/21/2023 [place] MEDICATION MANAGEMENT Lexapro 10mg one daily has [...] nursing note reviewed. Exam conducted with a interior design professor present. Vitals: Estimated body mass index is [...] libido R68.82 3. PMDD (premenstrual dysphoric disorder) ([facility]) F32.81 Annual Exam: Patient presents today for an annual exam. Patient states she is doing well and has no complaints. Pap was obtained without difficulty. Patient did voiced decreased libido. Patient would like to see about natural forms or other control for PMDD. Julianed sent to [facility] to have mail order delivered to see if symptoms improve. Orders Placed This Encounter Procedures HPV DNA probe, amplified POCT urinalysis dipstick manually resulted Follow Up: Patient is to return in one year for annual unless needed otherwise. Documented by Alaina Grewal LPN on behalf of: Luis Camacho DO documented in this encounter [facility] 03-21-2024 History of Present illness Narrative Reason for Appointment: Patient ID: [...] anomaly not found 01/11/2018 SVT (supraventricular tachycardia) ([facility]) 06/22/2018 Resolved Ambulatory Problems Diagnosis Date Noted No Resolved Ambulatory Problems Past Medical History: Diagnosis Date Depression ([facility]) Encounter for fertility planning Female pelvic pain demise, greater than 22 weeks, antepartum, fetus 1 Fibroid uterus Inability to sleep Miscarriage Obesity (BMI 30-39.9) 2010 Varicella zoster [place] teeth removed HISTORY PAST MEDICAL HISTORY SOCIAL HISTORY Past Medical History: Diagnosis Date Axillary lump, right Clotting disorder ([facility]) Depression ([facility]) Post traumatic Stress Encounter for fertility planning Female pelvic pain demise, greater than 22 weeks, antepartum, fetus 1 Fibroid uterus Inability to sleep Miscarriage Obesity (BMI 30-39.9) Pain and tenderness 2010 Varicella zoster [place] teeth removed Social History Tobacco Use Smoking [...] LOW TRANSVERSE X4 SECTION, LOW TRANSVERSE 02/21/2023 [place] MEDICATION MANAG[place] Lexapro 10mg one daily has [...] nursing note reviewed. Exam conducted with a interior design professor present. Vitals: Estimated body mass index is 45.12 kg/m as calculated from the following: Height as of 11/21/24: 5' 5 . Weight as of this encounter: 271 lb 1.9 oz. BP: 122/70 No LMP recorded. ASSESSMENT & PLAN ICD-10-CM 1. PMDD (premenstrual dysphoric disorder) ([facility]) F32.81 desogestrel-ethinyl estradiol (Apri) 0.15-30 MG-MCG tablet [...] to start medication. Patient uses [facility] [place]. Patient to return to clinic for annual appointment and PRN. Documented by Alaina Grewal LPN on behalf of: Luis Camacho DO documented in this encounter [facility] 07-06-2023 Evaluation note Encounter Date Diagnosis [...] understanding and is agreeable to treatment plan Jacked Other 02-05-2023 NotePROCEDURE: US PREG TV, 08/21/2022 5:31 PM EST CLINICAL INDICATIONS: [...] Electronically authenticated by: JUNE AC Date: 2022-08-21 18:04[facility]05-[facility]21 NoteOutreach team called pt to schedule post- visit. Pt informed that she has transferred care to another hospital system.[facility]03-24-2021 NoteDISCHARGE SUMMARY [address] [id number] Kavon Chao Date of : 1990 29 [...] of labor for intrauterine demise. Made slow change control analyst course of 24h. Following epidural placement on HD#2, patient found to be symptomatically hypotensive and required ongoing management from anesthesia. Bedside evaluation at this time revealed cervical dilation of 5cm, minimal change control analyst preceding 8 hours. On tocometry, tachysystole appreciate [...] her routine visit in [facility] weeks at [facility]. Discharge instructions included pelvic rest for six weeks and no heavy lifting greater than 10 pounds for six weeks. No future appointments. Carmen Hutton MD, MPH PGY-3, Obstetrics and GynecologyThe [facility]12[facility] Miscellaneous Notes* Telephone Encounter - Britta Molina RN - 06/27/2016 10:29 AM EST Returned patient's call and informed her that labs that were drawn at an outside lab are unable to be released to [facility]. Patient verbalizes understanding. * Telephone Encounter - Rosa Coats - 06/27/2016 8:53 AM EST Kavon Curran called today. : 1990 Allergies: Adhesive Tape (Rosins) (home) Reason for call: patient calling asking if her external labs from [facility] could be released into [facility]. Patient last appointment: Visit date not found The patients preferred pharmacy has been captured for this encounter? not asked Rosa Maddoxr documented in [facility]Arg[facility] Clinic[facility] Plan note No data available for this section [facility] [place] Evaluation noteNo assessment information available [facility] Work Phone: Evaluation note* Diagnosis PMDD (premenstrual [...] History Oral surgery Hospitalization History See above Jacked Other Hospital Discharge instructions No data available for this section [facility] [place] Progress note No data available for this section [facility] [place] Summary Purpose Family History No Family History Records FoundNo Family History Records FoundNo Family History Records FoundNo Family History Records FoundNo Family History Records FoundNo Family History Records FoundNo Family History Records FoundNo Family History Records Found No data available for this section No Family History Records Found Advance Directives No [...] section and content) DATE CREATED AUTHOR [facility] [place] DATE CREATED AUTHOR AUTHOR'S ORGANIZ ATION 12/07/2018 [facility] DATE CREATED AUTHOR AUTHOR'S ORGANIZ ATION 08/20/2021 [facility] DATE CREATED AUTHOR AUTHOR'S ORGANIZ ATION 03/09/2022 [facility] DATE CREATED AUTHOR AUTHOR'S ORGANIZ ATION 10/09/2022 [facility] DATE CREATED AUTHOR AUTHOR'S ORGANIZ ATION 02/16/2023 [facility] DATE CREATED AUTHOR AUTHOR'S ORGANIZ ATION 08/25/2023 [facility] DATE CREATED AUTHOR AUTHOR'S ORGANIZ ATION 11/26/2024 [facility] DATE CREATED AUTHOR AUTHOR'S ORGANIZ ATION 01/30/2025 [facility] Source Comments (unrecognize d section and content) In the event this informatio n is protected by the Federal Confidentiality of Alcohol and Drug Abuse Patient Records regulations: The Federal rules restrict any use of the information to criminally investigate or prosecute any alcohol or drug abuse patient.[facility] Reason for Visit (unrecogniz ed section and content) Reason Onset Date Comments Results 06/27/2016 Reason Comments PMDD issues Reason Comments Gynecologic Exam Care Teams (unrecognized sec tion and content) Lead Burner Supervisor Relationship Specialty Start Date End Date Jenna Bansal [address] [place] [address] PCP - General Family Medicine 12/14/17 Team Status: Active Member Role Status Dates Jenna Bansal PA-C Primary Care Provider Active Team Status: Inactive Member Role Status Dates Jenna Bansal PA-C Primary Care Provider Active Alanis Zaidi APRN Attending Provider Active Lead Burner Supervisor Relationship Specialty Start Date End Date Nabor Marroquin DO [address] [place] [id number] Physician Obstetrics/Gynecology 06/19/20 Duncan Nguyễn MD [address] [place] [phone] Physician Neuropathology 09/18/20 Yudy Agudelo MD [address] [place] [id number] Resident Obstetrics/Gynecology 10/16/20 Lead Burner Supervisor Relationship Specialty Start Date End Date Christopher Hunter MD [address] [place] [id number] PCP - General Family Medicine 12/16/22 Lead Burner Supervisor Relationship Specialty Start Date End Date Christopher Hunter MD [address] [place] [address] PCP - General Family Medicine 12/16/22 Lead Burner Supervisor Relationship Specialty Start Date End Date Christopher Hunter MD PCP - General Family Medicine 12/16/22 Lead Burner Supervisor Relationship Specialty Start Date End Date Christopher Hunter MD PCP - General Family Medicine 12/16/22 Lead Burner Supervisor Relationship Specialty Start Date End Date Christopher Hunter MD PCP - General Family Medicine 12/16/22 Goals (unrecognized section and content) Goals may be documented in a n alternate sectionNo Information No data available for this section FOR RECORDS PERTAINING TO PATIENTS WHO ARE [...] BE BASED ON THE PRIMARY CLINICAL RECORDS. [facility] [employer] [facility]. provides no warranty or guarantee of the accuracy or completeness of information in this document.
[2025-03-12 06:40] VITALS: BP 142/80; PULSE 93; TEMP 36.2; O2SAT 100; BMI 37.8
[2025-03-12 08:00] VITALS: BP 114/60; PULSE 89; TEMP 36.2; O2SAT 99
[2025-03-12 08:45] VITALS: BP 137/69; PULSE 78; O2SAT 100
== END 2025-03-12 08:45 | disposition home or self-care (01) ==
LOC: SURGOUT 06:04
PROVIDERS: Anesthesiology; PCP Family Medicine; Visit Provider Surgery
PROC: (CPT 812; principal; 2025-03-12 07:30)
DX: Z12.11 Encounter for screening for malignant neoplasm of colon (principal); Z80.0 Family history of malignant neoplasm of digestive organs; I10 Essential (primary) hypertension; F41.9 Anxiety disorder, unspecified
CPT/HCPCS: 45378; 36415; 84703; J2704